=== PATIENT | female | born 1975 | race Hispanic/Latino ===

== ENCOUNTER 2018-10-02 03:39 | Emergency (ER) | payer OTHER ==
--- OUTSIDE RECORDS SUMMARY | 2018-10-02 03:45 | XMS REPORT | Continuity of Care Document ---
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/29/2015 [facility] Blood clot Resolved Problem 07/29/2015 [facility] Brain tumor Resolved Problem 07/29/2015 [facility] Breast cyst Resolved Problem 07/29/2015 [facility] Epilepsy Resolved Problem 07/29/2015 [facility] Hearing Resolved Problem 07/29/2015 [facility] Hypothyroid Resolved Problem 07/29/2015 [facility] Ovarian cyst Resolved Problem 07/29/2015 [facility] Seizure Resolved Problem 07/29/2015 [facility] LOCAL-REL Active [facility] SYMPTC EPI W Medical CMPLX PART Center SEIZ, NEOPLASM OF Active [facility] UNSPECIFIED Medical BEHAVIOR OF Center BRAI EPILEPSY, UNSP, Active [facility] NOT Medical INTRACTABLE, Center WITH ST BENIGN NEOPLASM Active [facility] CEREBRAL Medical MENINGES Center Medications Medication Details Route Status Patient Ordering Order Source Instructions Provider Date dexamethasone 4 See Active 05/28[facility] mg oral tablet Instructions, 8 2015 Medical mg PEG Q12 (end Center date 06/01) 8 mg QAM and 4 mg QHS for 1 week 4 mg PEG Q12 for 1 week 4 mg PEG daily for 1 week then resume hydrocortisone 15 mg PEG QAM and 5 mg PEG QPM (home regimen), 0 Refill(s) sertraline 100 100 mg=1 tab, Active 05/28[facility] mg oral tablet PEG, Daily, 0 2015 Medical Refill(s) Center levothyroxine 125 microgram=1 Active [facility] 125 mcg (0.125 tab, PEG, Daily, 2016 Medical mg) oral tablet 0 Refill(s) Center Levetiracetam 1,000 mg=10 mL, Active [facility] 100 MG/ML Oral PEG, Q12H, 0 2015 Medical Solution Refill(s) Center [Keppra] lamotrigine 200 400 mg=2 tab, Active [facility] MG Oral Tablet PEG, BID, 0 2015 Medical Refill(s) Center Clonazepam 0.5 0.5 mg=1 tab, Active [facility] MG Oral Tablet PEG, BID, 0 2015 Medical Refill(s) Center pantoprazole 40 40 mg=1 pkt, Active [facility] mg oral granule PEG, Daily, 0 2015 Medical Refill(s) Center gabapentin 50 300 mg=6 mL, Active 05/28[facility] MG/ML Oral PEG, Q8H, 0 2015 Medical Solution Refill(s) Center Imodium A-D 2 mg, 10 mL, Inactive [place] Route: PEG, Drug 2015 Medical form: LIQ, ONCE, Center Dosing Weight 76.818, kg, Start date: 05/28/15 13:17:00, Stop date: 05/28/15 13:17:00Notes: (Same as: Imodium) Menthol 0.0044 1 appl, Route: Inactive [place] MG/MG / Zinc TOP, PRN, Drug 2015 Medical Oxide 0.2 MG/MG form: OINT, PRN [place] Topical Ointment Diaper Rash, [Calmoseptine Start date: Ointment] 05/28/15 10:29:00, Duration: 30 day, Stop date: 06/27/15 10:28:00Notes: (Same as: Calmoseptine) potassium 40 mEq, 30 mL, Inactive [place] chloride Route: PEG, Drug 2015 Medical form: LIQ, ONCE, Center Dosing Weight 76.818, kg, Start date: 05/28/15 7:31:00, Stop date: 05/28/15 7:31:00Notes: (Same as: Potassium Chloride) Protonix 40 mg, 1 pkt, No Longer [place] Route: PEG, Drug Active 2015 Medical form: GRAN/REC, Center Daily, Dosing Weight 76.818, kg, Start date: 05/27/15 9:00:00, Duration: 30 day, Stop date: 06/25/15 9:00:00 Thyroxine 125 microgram, 1 No Longer [place] tab, Route: PEG, Active 2015 Medical Drug form: TAB, Center [id number], Dosing Weight 76.818, kg, Start date: 05/27/15 6:30:00, Duration: 30 day, Stop date: 06/25/15 6:30:00 Dexamethasone 8 mg, 2 tab, No Longer [place] Route: PEG, Drug Active 2015 Medical form: TAB, Q12H, Center Dosing Weight 76.818, kg, Start date: 05/26/15 21:00:00, Duration: 30 day, Stop date: 06/25/15 9:00:00 Levetiracetam 1,000 mg, 10 mL, No Longer [place] 100 MG/ML Oral Route: PEG, Drug Active 2015 Medical Solution form: SOLN, [place] [Keppra] Q12H, Dosing Weight 76.818, kg, Start date: 05/26/15 21:00:00, Duration: 30 day, Stop date: 06/25/15 9:00:00Notes: Same as: Keppra gabapentin 300 300 mg, 6 mL, No Longer [place] MG Oral Capsule Route: PO, Drug Active 2015 Medical form: SOLN, Q8H, Center Dosing Weight 76.818, kg, (CrCl > 60 ml/min), Start date: 05/26/15 16:00:00, Duration: 30 day, Stop date: 06/25/15 8:00:00Notes: (Same as: Neurontin) Acetaminophen 500 mg, 1 tab, No Longer [place] Route: PEG, Drug Active 2015 Medical form: TAB, Q4H, Center Dosing Weight 76.818, kg, PRN Pain 1-3/Temp > 100.4 F, Start date: 05/26/15 15:38:00, Duration: 30 day, Stop date: 06/25/15 15:37:00 Zofran 4 mg, 2 mL, No Longer [place] Route: IV, Drug Active 2015 Medical form: INJ, Q8H, Center Dosing Weight 76.818, kg, PRN Nausea, Start date: 05/26/15 15:37:00, Duration: 30 day, Stop date: 06/25/15 15:36:00Notes: (Same as: Zofran) MEDICATION WASTE Product Size: 4 mg Product Wasted: 0 mg Glucose 50 MG/ML 1,000 mL, Rate: Inactive [place] / Sodium 75 ml/hr, Infuse 2016 Medical Chloride 0.154 over: 13.3 hr, Center MEQ/ML Route: IV, Injectable Dosing Weight Solution 76.818 kg, Total Volume: 1,000, Start date: 05/26/15 5:57:00, Duration: 30 day, Stop date: 06/25/15 5:56:00 Gastrografin 100 mL, Route: Inactive [place] PEG, Drug Form: 2016 Medical SOLN, Dosing Center Weight 76.818, kg, ONCE, Start date: 05/25/15 14:51:00, Stop date: 05/25/15 14:51:00Notes: WASTE: F/P - Black; E - [employer]ash [employer] Flagyl 500 mg, 100 mL, No Longer [place] Route: IVPB, Active 2015 Medical Drug form: INJ, Center ABXQ8H, Dosing Weight 76.818, kg, Start date: 05/24/15 11:00:00, Duration: 30 day, Stop date: 06/23/15 3:00:00Notes: (Same as: Flagyl) Avoid alcohol. 200 ML 400 mg, 200 mL, No Longer [place] Ciprofloxacin 2 Route: IVPB, Active 2015 Medical MG/ML Injection Drug form: INJ, Center [id number], Dosing Weight 76.818, kg, Start date: 05/24/15 11:00:00, Duration: 30 day, Stop date: 06/22/15 23:00:00Notes: Do not refrigerate Thyroxine Route: IV, Drug No Longer [place] form: INJ, Active 2015 Medical Daily, Dosing Center Weight 76.818, kg, Start date: 05/24/15 9:00:00, Stop date: 06/22/15 9:00:00Notes: (Same as: Synthroid) Keppra 1,000 mg, Route: No Longer [place] IVPB, Q12H, Active 2016 Medical Dosing Weight Center 76.818, kg, Start date: 05/23/15 21:00:00, Duration: 30 day, Stop date: 06/22/15 9:00:00Notes: Same as Keppra Mix with 100 mL NS, LR or D5W MEDICATION WASTE Product Size: 500 mg Product Wasted: ___ mg Dexamethasone 8 mg, 2 mL, No Longer [place] Route: IV, Drug Active 2015 Medical form: INJ, Q12H, Center Dosing Weight 76.818, kg, Start date: 05/23/15 21:00:00, Duration: 30 day, Stop date: 06/22/15 9:00:00Notes: Concentration: 4mg/ml Protonix 40 mg, Route: No Longer [place] IV, Drug form: Active 2015 Medical INJ, Q12H, Center Dosing Weight 76.818, kg, Start date: 05/23/15 21:00:00, Duration: 30 day, Stop date: 06/22/15 9:00:00, nowNotes: (Same as: Protonix) Dexamethasone 8 mg, 2 tab, Inactive [place] Route: PEG, Drug 2015 Medical form: TAB, BID, Center Dosing Weight 76.818, kg, Start date: 05/23/15 17:00:00, Duration: 30 day, Stop date: 06/22/15 9:00:00Notes: Give with food. (Same As: Decadron) Morphine 1 mg, 0.5 mL, No Longer [facility] Route: IVP, Drug Active 2015 Medical form: INJ, Q6H, Center Dosing Weight 76.818, kg, PRN Pain Score 7-10, Start date: 05/23/15 16:26:00, Duration: 30 day, Stop date: 06/22/15 16:25:00Notes: (Same as:MORPhine Sulfate) Clindamycin 600 mg, 4 mL, No Longer [place] Route: IVPB, Active 2015 Medical ABXQ8H, Dosing Center Weight 76.818, kg, Priority: NOW, Start date: 05/23/15 16:26:00, Duration: 30 day, Stop date: 06/22/15 8:26:00Notes: (clindamycin 150 mg/1 ml (600 mg/4 ml VL) INJ) (Same As: Cleocin) D5NS 1,000 mL 1,000 mL, Rate: No Longer [place] 75 ml/hr, Infuse Active 2015 Medical over: 13.3 hr, Center Route: IV, Dosing Weight 76.818 kg, Total Volume: 1,000, Start date: 05/23/15 13:42:00, Duration: 30 day, Stop date: 06/22/15 13:41:00 Iohexol 100 mL, Route: No Longer [place] IVP, Drug Form: Active 2015 Medical SOLN, Dosing Center Weight 76.818, kg, ONCALL, STAT, Start date: 05/23/15 11:16:00, Duration: 1 doses or times, Stop date: 05/23/15 23:59:00, Dose=2.2ml/kg, Max [id number] -- "To be infused by Radiology Staff ONLY"Notes: (Same as:Omnipaque 350). Dexamethasone 6 mg, 1 tab, No Longer [place] Route: PEG, Drug Active 2015 Medical form: TAB, Q8H, Center Dosing Weight 76.818, kg, Start date: 05/21/15 20:00:00, Duration: 30 day, Stop date: 06/20/15 12:00:00Notes: Give with food. clindamycin 300 mg, 20 mL, No Longer [place] Route: PEG, Drug Active 2015 Medical form: PDR/REC, Center ABXQ6H, Dosing Weight 76.818, kg, Start date: 05/20/15 18:00:00, Duration: 30 day, Stop date: 06/19/15 12:00:00Notes: (Same As: Cleocin) Clindamycin 300 mg, 20 mL, Inactive [place] Route: PEG, Drug 2015 Medical form: PDR/REC, Center ABXQ6H, Dosing Weight 76.818, kg, Start date: 05/20/15 14:00:00, Duration: 30 day, Stop date: 06/19/15 8:00:00Notes: (Same As: Cleocin) docusate 100 mg, 10 mL, No Longer [place] Route: PO, Drug Active 2015 Medical form: LIQ, BID, Center Start date: 05/19/15 9:33:00, Duration: 30 day, Stop date: 06/18/15 9:30:00Notes: (Same as: Colace) docusate 100 mg, 10 mL, Inactive [place] Route: PO, Drug 2015 Medical form: LIQ, BID, Center Start date: 05/19/15 9:30:00, Duration: 30 day, Stop date: 06/17/15 17:00:00Notes: (Same as: Colace) Dexamethasone 6 mg, 1 tab, No Longer [place] Route: PEG, Drug Active 2015 Medical form: TAB, Q6H, Center Dosing Weight 76.818, kg, Start date: 05/18/15 18:00:00, Duration: 30 day, Stop date: 06/17/15 12:00:00Notes: Give with food. Docusate Sodium 100 mg, 1 cap, No Longer [place] 100 MG Oral Route: PO, Drug Active 2015 Medical Capsule [Colace] form: CAP, BID, Center Dosing Weight 76.818, kg, Priority: NOW, Start date: 05/18/15 10:46:00, Duration: 30 day, Stop date: 06/17/15 9:00:00Notes: (Same as: Colace) (Do Not Crush) Dulcolax 10 mg, 1 supp, No Longer [place] Laxative Route: OH, Drug Active 2015 Medical form: SUPP, Center Daily, Dosing Weight 76.818, kg, PRN Constipation, Start date: 05/18/15 10:46:00, Duration: 30 day, Stop date: 06/17/15 10:45:00Notes: (Same As: Dulcolax, [place]-Lax) senna 8.6 mg 8.6 mg, 1 tab, No Longer [place] oral tablet Route: PEG, Drug Active 2015 Medical Form: TAB, Center Dosing Weight 76.818, kg, Bedtime, NOW, Start date: 05/18/15 10:46:00, Duration: 30 day, Stop date: 06/16/15 21:00:00Notes: (Same as: Senokot) Acetaminophen 1 tab, Route: No Longer [place] 325 MG / PEG, Drug Form: Active 2015 Medical Hydrocodone TAB, Dosing Center Bitartrate 5 MG Weight 76.818, Oral Tablet kg, Q6H, PRN [[place] 5/325] Other -See Comment, Start date: 05/18/15 10:45:00, Duration: 30 day, Stop date: 06/17/15 10:44:00, Pain Score 3-10Notes: (Same as: [place] 325/5) Do not exceed 4gm/day of acetaminophen. Multihance 529 8,125.44 mg, No Longer [place] mg/mL 15.36 mL, Route: Active 2015 Medical IVP, Drug form: Center INJ, ONCALL, Dosing Weight 76.818, kg, GFR > 39 ml/min, Priority: STAT, Start date: 05/16/15 22:17:00, Duration: 1 doses or timesNotes: Same as Multihance Keppra 1,000 mg, Route: No Longer [place] IV, ONCE, Dosing Active 2015 Medical Weight 76.818, Center kg, Start date: 05/16/15 20:23:00, Stop date: 05/16/15 20:23:00Notes: Same as Keppra Mix with 100 mL NS, LR or D5W MEDICATION WASTE Product Size: 500 mg Product Wasted: ___ mg Ativan 1 mg, 0.5 mL, No Longer [place] Route: IV, Drug Active 2015 Medical form: INJ, Q6H, Center Dosing Weight 76.818, kg, PRN Seizure, Start date: 05/16/15 1:13:00, Duration: 30 day, Stop date: 06/15/15 1:12:00Notes: (Same as: Ativan) Ketorolac 30 mg, 1 mL, No Longer [place] Route: IV, Drug Active 2015 Medical form: INJ, Q6H, Center Dosing Weight 76.818, kg, PRN Pain Score 4-6, Start date: 05/15/15 21:55:00, Duration: 4 day, Stop date: 05/19/15 21:54:00Notes: (Same as:Toradol) IV bolus must be given >15 seconds. Give IM administration slowly and deeply into the muscle. Not for use > 4 days MEDICATION WASTE Product Size: 30 mg Product Wasted: ___ mg Versed 2 mg, Route: Inactive [place] IVP, ONCE, 2015 Medical Dosing Weight Center 76.818, kg, PRN Anxiety, Start date: 05/14/15 14:56:00, Stop date: 06/13/15 14:55:00 Versed 2 mg, 2 mL, No Longer [place] Route: IVP, Drug Active 2015 Medical form: INJ, ONCE, Center Dosing Weight 76.818, kg, PRN Anxiety, Start date: 05/14/15 10:57:00, PRN MRINotes: (Same as: Versed) MEDICATION WASTE Product Size: 2 mg Product Wasted: ___ mg potassium 18 mmol, 6 mL, Inactive [place] phosphate + Route: IVPB, 2015 Medical Sodium Chloride ONCE, Dosing Center 0.9% IV 250 mL Weight 76.818, kg, Start date: 05/14/15 7:58:00, Stop date: 05/14/15 7:58:00Notes: (Same as: K Phosphate.) 1 mMol phoshate has 1.47 mEq potassium Infuse over 4 hours NS 1,000 mL 1,000 mL, Rate: No Longer [place] 75 ml/hr, Infuse Active 2015 Medical over: 13.3 hr, Center Route: IV, Dosing Weight 76.818 kg, Total Volume: 1,000, please start when NPO, Start date: 05/14/15 0:00:00, Duration: 30 day, Stop date: 06/12/15 23:59:00 Dexamethasone 6 mg, 0.6 mL, No Longer [facility] Route: IVP, Drug Active 2015 Medical form: INJ, Q6H, Center Dosing Weight 76.818, kg, Start date: 05/13/15 18:00:00, Duration: 30 day, Stop date: 06/12/15 12:00:00Notes: MEDICATION WASTE Product Size: 10 mg Product Wasted: ___ mg Pepcid 20 mg, 1 tab, No Longer [place] Route: PO, Drug Active 2015 Medical form: TAB, Q12H, Center Dosing Weight 76.818, kg, Priority: NOW, Start date: 05/13/15 7:31:00, Stop date: 06/11/15 21:00:00Notes: (Same as: Pepcid) Dexamethasone 8 mg, 0.8 mL, No Longer [place] Route: IVP, Drug Active 2015 Medical form: INJ, Q6H, Center Dosing Weight 76.818, kg, Start date: 05/12/15 18:00:00, Duration: 1 day, Stop date: 05/13/15 12:00:00Notes: MEDICATION WASTE Product Size: 10 mg Product Wasted: ___ mg Docusate 100 mg, 10 mL, No Longer [place] Route: GT, Drug Active 2015 Medical form: LIQ, BID, Center Dosing Weight 76.818, kg, Start date: 05/12/15 17:00:00, Duration: 30 day, Stop date: 06/11/15 9:00:00Notes: (Same as: Colace) Hydrocortisone 5 mg, 1 tab, No Longer [place] Route: PO, Drug Active 2015 Medical form: TAB, Q24H, Center Dosing Weight 76.818, kg, Start date: 05/12/15 15:00:00, Duration: 30 day, Stop date: 06/10/15 15:00:00Notes: (Same as: Cortef) Magnesium 2 gm, 50 mL, Inactive [place] Sulfate Route: IVPB, 2015 Medical Drug form: INJ, Center ONCE, Dosing Weight 76.818, kg, Total dose=2 gm, Start date: 05/12/15 13:20:00, Duration: 1 doses or times, Stop date: 05/12/15 13:20:00 Dexamethasone 10 mg, 1 mL, Inactive [place] Route: IVP, Drug 2015 Medical form: INJ, ONCE, Center Dosing Weight 76.818, kg, Priority: STAT, Start date: 05/12/15 13:11:00, Stop date: 05/12/15 13:11:00Notes: MEDICATION WASTE Product Size: 10 mg Product Wasted: ___ mg Hydrocortisone 15 mg, 3 tab, No Longer [place] Route: PO, Drug Active 2015 Medical form: TAB, Center Daily, Dosing Weight 76.818, kg, Start date: 05/12/15 9:00:00, Duration: 30 day, Stop date: 06/10/15 9:00:00Notes: (Same as: Cortef) Multihance 529 8,125.44 mg, No Longer [place] mg/mL 15.36 mL, Route: Active 2015 Medical IVP, Drug form: Center INJ, ONCALL, Dosing Weight 76.818, kg, GFR > 39 ml/min, Priority: STAT, Start date: 05/11/15 19:58:00, Duration: 1 doses or times, Stop date: 05/12/15 0:00:00Notes: Same as Multihance Hydrocortisone 5 mg, 1 tab, Inactive [place] Route: PO, Drug 2015 Medical form: TAB, ONCE, Center Dosing Weight 76.818, kg, Priority: STAT, Start date: 05/11/15 19:33:00, Stop date: 05/11/15 19:33:00Notes: (Same as: Cortef) Ativan 1 mg, 0.5 mL, Inactive [facility] Route: IVP, Drug 2015 Medical form: INJ, ONCE, Center Dosing Weight 76.818, kg, PRN Anxiety, Start date: 05/11/15 17:33:00Notes: (Same as: Ativan) normal saline 1,000 mL, Rate: No Longer [place] 0.9% IV 1,000 mL 75 ml/hr, Infuse Active 2015 Medical over: 13.3 hr, Center Route: IV, Dosing Weight 76.818 kg, Total Volume: 1,000, Start date: 05/11/15 16:24:00, Duration: 30 day, Stop date: 06/10/15 16:23:00 Ativan 2 mg, 1 mL, Inactive Route: IM, Drug 2015 Medical form: INJ, ONCE, Center Dosing Weight 76.818, kg, Priority: NOW, Start date: 05/11/15 11:36:00, Stop date: 05/11/15 11:36:00Notes: (Same as: Ativan) Versed 2 mg, Route: IM, Inactive [place] ONCE, Dosing 2015 Medical Weight 76.818, Center kg, Start date: 05/11/15 11:27:00, Stop date: 05/11/15 11:27:00 Versed 1 mg, 0.5 mL, No Longer [place] Route: IV, Drug Active 2015 Medical form: SYRP, PRN, Center Dosing Weight 76.818, kg, PRN Anxiety, Start date: 05/11/15 8:01:00, Duration: 2 doses or times, Stop date: 05/12/15 0:00:00Notes: (Same as: Versed) lamotrigine 200 400 mg=2 tab, No Longer [place] MG Oral Tablet PO, BID Active 2015 [facility] lamotrigine 200 400 mg, 2 tab, No Longer [place] MG Oral Tablet Route: PO, Drug Active 2015 Medical form: TAB, BID, Center Dosing Weight 81.818, kg, Start date: 05/10/15 9:00:00, Duration: 30 day, Stop date: 06/08/15 17:00:00Notes: (Same as:LaMICtal) Thyroxine 125 microgram, 1 No Longer [place] tab, Route: PO, Active 2015 Medical Drug form: TAB, Center Daily, Dosing Weight 81.818, kg, Start date: 05/10/15 9:00:00, Duration: 30 day, Stop date: 06/08/15 9:00:00Notes: Take 1 hour before or 2 hours after meal; Enteral feeds may interefere with the absorption of this medication. (Same as:Levothroid) Sertraline 100 mg, 1 tab, No Longer [place] Route: PO, Drug Active 2015 Medical form: TAB, Center Daily, Dosing Weight 81.818, kg, Start date: 05/10/15 9:00:00, Duration: 30 day, Stop date: 06/08/15 9:00:00Notes: (Same as: Zoloft) Levetiracetam 1,000 mg, 2 tab, No Longer [facility] 1000 MG Oral Route: PO, Drug Active 2015 Medical Tablet form: TAB, BID, Center Dosing Weight 81.818, kg, Start date: 05/10/15 9:00:00, Duration: 30 day, Stop date: 06/08/15 17:00:00Notes: (Same as:Keppra) Clonazepam 0.5 mg, 1 tab, No Longer [facility] Route: PO, Drug Active 2015 Medical form: TAB, BID, Center Dosing Weight 81.818, kg, Start date: 05/10/15 9:00:00, Duration: 30 day, Stop date: 06/08/15 17:00:00Notes: (Same As: KlonoPIN) pneumococcal 0.5 mL, Route: Inactive [place] capsular IM, Drug Form: 2015 Medical polysaccharide INJ, Daily, Center type 1 vaccine / Start date: pneumococcal 05/10/15 capsular 9:00:00, polysaccharide Duration: 1 type 10A vaccine doses or times, / pneumococcal Stop date: capsular 05/10/15 polysaccharide 9:00:00Notes: type 11A vaccine (Same as: / pneumococcal Pneumovax 23) capsular Refrigerate polysaccharide type 12F vaccine / pneumococcal capsular polysacchar heparin sodium, 5,000 unit, 1 No Longer [place] porcine 2500 mL, Route: Active 2015 Medical UNT/ML SUB-Q, Drug Center Injectable form: INJ, Q8H, Solution Dosing Weight 81.818, kg, Start date: 05/10/15 8:00:00, Duration: 30 day, Stop date: 06/09/15 0:00:00Notes: porcine heparin Versed 1 mg, 1 mL, No Longer [facility] Route: IV, Drug Active 2015 Medical form: INJ, PRN, Center Dosing Weight 81.818, kg, PRN Other -See Comment, Start date: 05/10/15 2:00:00, Duration: 30 day, Stop date: 06/09/15 1:59:00Notes: (Same as: Versed) MEDICATION WASTE Product Size: 2 mg Product Wasted: _1__ mg Saline Flush 10 ml, Route: No Longer [place] 0.9% IVP, Drug Form: Active 2015 Medical INJ, Dosing Center Weight 81.818, kg, Q12H, Start date: 05/09/15 21:00:00, Duration: 30 day, Stop date: 06/08/15 9:00:00Notes: (Same as: BD Posiflush) Acetaminophen 1,000 mg=2 tab, No Longer [place] 500 MG Oral PO, Q4H, PRN Active 2015 Medical Tablet [Tylenol] Pain, # 120 tab, Center 0 Refill(s) Saline Flush 10 ml, Route: No Longer [place] 0.9% IVP, Drug Form: Active 2015 Medical INJ, Dosing Center Weight 81.818, kg, PRN, PRN Line Flush, Start date: 05/09/15 17:58:00, Duration: 30 day, Stop date: 06/08/15 17:57:00Notes: (Same as: BD Posiflush) lamotrigine 200 See No Longer [place] MG Oral Tablet Instructions, 1 2015 Medical tab PO Daily, 1 Center Refill(s) levothyroxine 125 microgram=1 No Longer [place] 125 mcg (0.125 tab, PO, Daily, 2015 Medical mg) oral tablet # 30 tab, 0 Center Refill(s) clonazePAM 0.5 0.5 mg=1 tab, No Longer [place] mg oral tablet PO, BID, # 30 Active 2015 Medical tab, 0 Refill(s) Center sertraline 100 100 mg=1 tab, No Longer [place] mg oral tablet PO, Daily, # 30 Active 2015 Medical tab, 0 Refill(s) Center Levetiracetam 1,000 mg=1 tab, No Longer [place] 1000 MG Oral PO, BID, # 30 Active 2015 Medical Tablet tab, 0 Refill(s) Center Allergies, Adverse Reactions, Alerts Substance Category Reaction Severity Reaction Status Date Comments Source type Reported iodine Assertion Drug Active [facility] topical [facility] penicillins Assertion Drug [place] [facility] [place]ion Drug [place] [facility] Immunizations Immunization Date Given Site Status Last Comments Source Updated pneumococcal 05/11/2015 Right completed Iyamu [facility]-valent [facility] Results Order Name Results Value Reference Date Interpretation Comments Source Range CHEM PANEL eGFR 96 07/04 Result Comment: The eGFR is calculated using the CKD-EPI formula. In most young, healthy individuals the eGFR will be >90 mL/ min/1.73m2. The eGFR declines with age. An eGFR of 60-89 may be normal in [facility] mL/min/1. some populations, particularly the elderly, for whom the CKD-EPI formula has not been extensively validated. Use of the eGFR is not recommended in the following populations: [address] Individuals with unstable creatinine concentrations, including patients and those with serious co-morbid conditions. Patients with extremes in muscle mass or diet. The data above are obtained from the National Kidney Disease Education Program (NKDEP) which additionally recommends that when the eGFR is used in patients with extremes of body mass index for purposes of drug dosing, the eGFR should be multiplied by the estimated BMI. CHEM PANEL Calcium Lvl 8.1 mg/dL 8.5 - 10.5 07/04 [facility] CHEM PANEL CO2 26 meq/L 24 - 32 07/[address] CHEM PANEL Creatinine 0.77 mg/dL 0.50 - 07/04 [facility] Lvl 1.40 [facility] CHEM PANEL BUN 3 mg/dL 7 - 22 07/04 [facility]2015 [facility] CHEM PANEL Potassium Lvl 3.1 meq/L 3.5 - 5.1 07/04 2015 [facility] CHEM PANEL Sodium Lvl 143 meq/L 135 - 145 07/04 [facility]2015 [facility] CHEM PANEL Glucose Lvl 116 mg/dL 70 - 99 07/04 [facility]2015 [facility] CHEM PANEL Chloride Lvl 108 meq/L 95 - 109 07/04 [facility]2015 [facility] CHEM PANEL AGAP 12.1 meq/L 10.0 - 07/04 [facility] 20.0 [facility] HEMATOLOGY Plt Morph Normal 07/04 [facility] (07/05/15 3:46 PM) [place] HEMATOLOGY Tot Cell Ct 100 07/04 [facility] HEMATOLOGY Atypical 0.0 % <=0.0 % 07/04 [facility] Lymphs [facility] HEMATOLOGY RBC Morph Normal 07/04 [facility] (07/05/15 3:46 PM) [place] HEMATOLOGY Lymphocytes 40.0 % 20.0 - 07/04 40.0 [facility] [facility] HEMATOLOGY Monocytes 4.0 % 2.0 - 12.0 07/04 [facility] HEMATOLOGY Segs-Bands # 3.5 K/CMM 1.5 - 8.1 07/04 [facility] HEMATOLOGY Lymphocytes # 2.5 K/CMM 1.0 - 5.5 07/04 2015 [facility] HEMATOLOGY Monocytes # 0.2 K/CMM 0.0 - 0.8 07/04 [facility] HEMATOLOGY Segs 56.0 % 45.0 - 07/04 75.0 [facility] HEMATOLOGY Bands 0.0 % 0.0 - 11.0 07/04 [facility] HEMATOLOGY RDW 15.8 % 11.5 - 07/04 [place] 14.5 [facility] HEMATOLOGY MPV 6.9 fL 7.4 - 10.4 07/[address] [place] [address] HEMATOLOGY Platelet 357 K/CMM 133 - 450 07/04 [facility] HEMATOLOGY MCV 83.1 fL 80.0 - 07/04 98.0 [facility] HEMATOLOGY RBC 3.91 M/CMM 4.20 - 07/04 5.40 /2015 [facility] HEMATOLOGY WBC 6.2 K/CMM 3.7 - 10.4 07/04 [facility] HEMATOLOGY Hct 32.5 % 36.0 - 07/04 [place] 48.0 [facility] HEMATOLOGY Hgb 10.8 g/dL 12.0 - 07/04 16.0 [facility] HEMATOLOGY MCHC 33.2 g/dL 32.0 - 07/04 36.0 [facility] HEMATOLOGY MCH 27.6 pg 27.0 - 07/04 [facility] 31.0 [facility] URINE AND UA Leuk Est Negative Negative 07/04 [facility] (07/05/15 3:19 PM) [place] URINE AND UA Nitrite Negative Negative 07/04 [facility] (07/05/15 3:19 PM) [place] URINE AND UA 0.2 EU/dL 0.1 - 1.0 07/04 [facility] Urobilinogen /2015 [facility] URINE AND UA Blood Negative Negative 07/04 [facility] (07/05/15 3:19 PM) [place] URINE AND UA Bili Negative Negative 07/04 [facility] *NA* [place] (07/05/15 3:19 PM) URINE AND UA Ketones Negative Negative 07/04 [facility] mg/dL mg/dL /2015 [facility] URINE AND UA Glucose Negative Negative 07/04 [facility] mg/dL mg/dL /2015 [facility] URINE AND UA Protein Negative Negative 07/04 [facility] mg/dL mg/dL [facility] URINE AND UA pH 7.0 5.0 - 8.0 07/04 [facility] URINE AND UA Spec Grav 1.015 <=1.030 07/04 [facility] URINE AND UA Turbidity Clear Clear 07/04 [facility] (07/05/15 3:19 PM) [place] URINE AND UA Color Yellow Yellow 07/04 [facility] *NA* [place] (07/05/15 3:19 PM) URINE AND UA Sq Epi None Seen Few 07/04 [facility] (07/05/15 3:19 PM) [place] Brain-Outsi Brain-Outside EXAM: CT BRAIN WITHOUT CONTRAST 07/04 - [facility] Consult Consult CT - [facility] CT Center DATE: 07/05/2015 Read by: Alia Granado Dictated Date/time: 07/06/15 11:42 Electronically Signed by: Alia Granado 07/06/15 11:47 FINAL REPORT INDICATION: 2nd opinion consultation COMPARISON: MRI dated 06/01/2009 TECHNIQUE: Routine axial CT images of the brain were obtained FINDINGS: Numerous extra-axial masses in the anterior cranial fossa, left petroclival region, left middle cranial fossa, and bilateral parafalcine regions are again noted, consistent with the known history of men ingiomatosis. Areas of encephalomalacia in the right orbitofrontal gyri and in the left superior and middle frontal gyri are again demonstrated. There are bilateral craniotomies, unchanged as compared t o the previous exam. A ventriculostomy catheter in the right atrium is again noted. The ventricular size is normal and stable. IMPRESSION: Stable postoperative changes, areas of encephalomalacia, and residual meningiomas in both cerebral hemispheres. I agree with the outside report. CHEM PANEL eGFR 93 05/27 Result Comment: The eGFR is calculated using the CKD-EPI formula. In most young, healthy individuals the eGFR will be >90 mL/ min/1.73m2. The eGFR declines with age. An eGFR of 60-89 may be normal in [facility] mL/min/1. some populations, particularly the elderly, for whom the CKD-EPI formula has not been extensively validated. Use of the eGFR is not recommended in the following populations: [address] Individuals with unstable creatinine concentrations, including patients and those with serious co-morbid conditions. Patients with extremes in muscle mass or diet. The data above are obtained from the National Kidney Disease Education Program (NKDEP) which additionally recommends that when the eGFR is used in patients with extremes of body mass index for purposes of drug dosing, the eGFR should be multiplied by the estimated BMI. CHEM PANEL Potassium Lvl 3.3 meq/L 3.5 - 5.1 05/[address] [place] [address] CHEM PANEL Sodium Lvl 142 meq/L 135 - 145 05/27 [facility]2015 [facility] CHEM PANEL Creatinine 0.80 mg/dL 0.50 - 05/27 [facility] Lvl 1.40 [facility] CHEM PANEL Calcium Lvl 8.6 mg/dL 8.5 - 10.5 05/[address] CHEM PANEL CO2 27 meq/L 24 - 32 05/[address] CHEM PANEL AGAP 13.3 meq/L 10.0 - 05/27 [facility] 20.0 [facility] CHEM PANEL Chloride Lvl 105 meq/L 95 - 109 05/27 [facility]2015 [facility] CHEM PANEL Glucose Lvl 93 mg/dL 70 - 99 05/[address] CHEM PANEL BUN 14 mg/dL 7 - 22 05/[address] CHEM PANEL Bili Total 0.3 mg/dL 0.2 - 1.3 05/[address] CHEM PANEL Globulin 3.3 g/dL 2.0 - 4.0 05/[address] CHEM PANEL Bili Direct 0.1 mg/dL 0.0 - 0.3 05/[address] CHEM PANEL Alk Phos 190 unit/L 39 - 136 05/[address] CHEM PANEL AST 31 unit/L 0 - 37 05/[address] CHEM PANEL Albumin Lvl 3.4 g/dL 3.5 - 5.0 05/[address] CHEM PANEL ALT 112 unit/L 0 - 65 05/[address] CHEM PANEL Bili Indirect 0.2 mg/dL 0.0 - 1.0 05/[address] CHEM PANEL A/G Ratio 1.0 0.7 - 1.6 05/[address] CHEM PANEL Total Protein 6.7 g/dL 6.4 - 8.4 05/[address] Foot series Foot series EXAM: FOOT 3 VIEWS 05/25 [facility] DATE: Order Observation End Time: May 25, 2015 08:00:35 PM Read by: Loc Padilla MD Dictated Date/time: 05/26/15 07:41 Electronically Signed by: Loc Padilla MD 05/26/15 07:42 FINAL REPORT INDICATION: Pain. Pain and swelling TECHNIQUE: AP , lateral and oblique radiographs of the left foot . COMPARISON: None available FINDINGS: No acute bony abnormality is identified. Old avulsion fracture from the base of the fifth metatarsal seen. IMPRESSION: No acute bony abnormality identified. Abdomen AP Abdomen AP DX EXAM: XR ABDOMEN 2 views 05/25 - [facility] DATE: 05/23/2015 at 16: 57. Read by: Staci Sethi MD Dictated Date/time: 05/26/15 10:47 Electronically Signed by: Staci Sethi MD 05/26/15 10:54 FINAL REPORT INDICATION: G-tube confirmation. ADDITIONAL INFORMATION: None. COMPARISON: 05/13/2015. TECHNIQUE: Supine films of the upper abdomen before and after injection of contrast via G-tube FINDINGS: Potash Flaker film shows a shunt tube is in the right side of the abdomen. A G- tube tip is in the midline. This gaseous distention of the colon without constipation all of these distal impaction but the rectum is not shown. Second film shows contrast into bleacher injected via the G-tube outlining the stomach and proximal duodenum. The balloon of the G-tube is note overlying the stomach and is presumed within a stretched p ortion of the stomach connecting it to the skin or within the track connecting the stomach to the skin. There is no contrast leak seen on this film. If exact relationship between the G-tube and the lume n of the stomach is to be shown, and lateral film during contrast injection is needed. IMPRESSION: 1. No leak of contrast pass IV GI tract seen during injection the NG tube into supine position although the tube is not obviously in the stomach. 2. If the G-tube position in relation to gastric lumen is to be shown, and lateral film during contrast injection is needed CHEM PANEL A/G Ratio 0.9 0.7 - 1.6 05/25 [facility] CHEM PANEL Globulin 3.8 g/dL 2.0 - 4.0 05/[address] CHEM PANEL AGAP 11.1 meq/L 10.0 - 05/25 [facility] 20.0 [facility] CHEM PANEL B/C Ratio 23 6 - 25 05/[address] CHEM PANEL eGFR 105 05/25 Result Comment: The eGFR is calculated using the CKD-EPI formula. In most young, healthy individuals the eGFR will be >90 mL/ min/1.73m2. The eGFR declines with age. An eGFR of 60-89 may be normal in [facility] mL/min/1.7 /2015 some populations, particularly the elderly, for whom the CKD-EPI formula has not been extensively validated. Use of the eGFR is not recommended in the following populations: [address] Individuals with unstable creatinine concentrations, including patients and those with serious co-morbid conditions. Patients with extremes in muscle mass or diet. The data above are obtained from the National Kidney Disease Education Program (NKDEP) which additionally recommends that when the eGFR is used in patients with extremes of body mass index for purposes of drug dosing, the eGFR should be multiplied by the estimated BMI. CHEM PANEL Chloride Lvl 108 meq/L 95 - 109 05/25 [facility] CHEM PANEL Creatinine 0.71 mg/dL 0.50 - 05/25 [facility] Lvl 1.40 [facility] CHEM PANEL Potassium Lvl 4.1 meq/L 3.5 - 5.1 05/25 [facility] CHEM PANEL CO2 24 meq/L 24 - 32 05/25 2015 [facility] CHEM PANEL Sodium Lvl 139 meq/L 135 - 145 05/25 2015 [facility] CHEM PANEL Albumin Lvl 3.3 g/dL 3.5 - 5.0 05/[address] CHEM PANEL ALT 187 unit/L 0 - 65 05/25 2015 [facility] CHEM PANEL AST 50 unit/L 0 - 37 05/[address] CHEM PANEL Calcium Lvl 8.2 mg/dL 8.5 - 10.5 05/25 [facility]2015 [facility] CHEM PANEL Total Protein 7.1 g/dL 6.4 - 8.4 05/25 [facility]2015 [facility] CHEM PANEL Bili Total 0.4 mg/dL 0.2 - 1.3 05/[address] CHEM PANEL Alk Phos 238 unit/L 39 - 136 05/[address] CHEM PANEL Glucose Lvl 111 mg/dL 70 - 99 05/[address] CHEM PANEL BUN 16 mg/dL 7 - 22 05/[address] HEMATOLOGY Lymphocytes 14.9 % 20.0 - 05/25 [place] 40.0 [facility] HEMATOLOGY Monocytes 3.4 % 2.0 - 12.0 05/25 2015 [facility] HEMATOLOGY Eosinophils 0.1 % 0.0 - 4.0 05/25 [facility] HEMATOLOGY Basophils 0.2 % 0.0 - 1.0 05/25 2015 [facility] HEMATOLOGY Lymphocytes # 1.3 K/CMM 1.0 - 5.5 05/25 [facility] HEMATOLOGY Monocytes # 0.3 K/CMM 0.0 - 0.8 05/25 2015 [facility] HEMATOLOGY Segs-Bands # 6.9 K/CMM 1.5 - 8.1 05/25 [facility]2015 [facility] HEMATOLOGY Segs 81.4 % 45.0 - 05/25 [place] 75.0 [facility] HEMATOLOGY RBC 4.66 M/CMM 4.20 - 05/25 [place] 5.40 [facility] HEMATOLOGY Hct 39.4 % 36.0 - 05/25 [place] 48.0 [facility] HEMATOLOGY Hgb 13.1 g/dL 12.0 - 05/25 [place] 16.0 /2015 [facility] HEMATOLOGY WBC 8.5 K/CMM 3.7 - 10.4 05/25 [facility] HEMATOLOGY MCHC 33.2 g/dL 32.0 - 05/25 [facility] 36.0 /2015 [facility] HEMATOLOGY MCH 28.1 pg 27.0 - 05/25 31.0 [facility] HEMATOLOGY MCV 84.5 fL 80.0 - 05/25 [place] 98.0 /2015 [facility] HEMATOLOGY MPV 7.8 fL 7.4 - 10.4 05/25 [facility] HEMATOLOGY Platelet 328 K/CMM 133 - 450 05/25 [facility] HEMATOLOGY RDW 15.9 % 11.5 - 05/25 [facility] 14.5 [facility] Wrist Wrist EXAM: XR RIGHT ELBOW 3 VIEWS 05/24 - [facility] complete DX complete - Medical EXAM: XR RIGHT FOREARM 2 VIEWS Center EXAM: XR RIGHT WRIST 3 VIEWS Read by: Krystal Cordova MD Dictated Date/time: 05/25/15 07:42 Electronically Signed by: Krystal Cordova MD 05/25/15 07:44 FINAL REPORT DATE: 05/25/2015 at 0000 hours INDICATION: Pain and swelling. COMPARISON: Right humerus radiographs of 11/30/2008. TECHNIQUE: AP, lateral and oblique radiographs of the right elbow, AP and lateral radiographs of the right forearm, PA, lateral and oblique radiographs of the right wrist DISCUSSION: No fracture, dislocation or other acute bony abnormality is identified. There is no elbow joint effusion. Subcutaneous edema is most evident surrounding the elbow and ulnar aspect of the for earm, without subcutaneous emphysema or radiopaque foreign body. IMPRESSION: Diffuse soft tissue swelling without acute bony abnormality. Forearm 2 Forearm 2 EXAM: XR RIGHT ELBOW 3 VIEWS 05/24 - [place] views DX views DX - Medical EXAM: XR RIGHT FOREARM 2 VIEWS Center EXAM: XR RIGHT WRIST 3 VIEWS Read by: Krystal Cordova MD Dictated Date/time: 05/25/15 07:42 Electronically Signed by: Krystal Cordova MD 05/25/15 07:44 FINAL REPORT DATE: 05/25/2015 at 0000 hours INDICATION: Pain and swelling. COMPARISON: Right humerus radiographs of 11/30/2008. TECHNIQUE: AP, lateral and oblique radiographs of the right elbow, AP and lateral radiographs of the right forearm, PA, lateral and oblique radiographs of the right wrist DISCUSSION: No fracture, dislocation or other acute bony abnormality is identified. There is no elbow joint effusion. Subcutaneous edema is most evident surrounding the elbow and ulnar aspect of the for earm, without subcutaneous emphysema or radiopaque foreign body. IMPRESSION: Diffuse soft tissue swelling without acute bony abnormality. Elbow 3 Elbow 3 views EXAM: XR RIGHT ELBOW 3 VIEWS 05/24 - [facility] views DX DX /2015 - Medical EXAM: XR RIGHT FOREARM 2 VIEWS Center EXAM: XR RIGHT WRIST 3 VIEWS Read by: Krystal Cordova MD Dictated Date/time: 05/25/15 07:42 Electronically Signed by: Krystal Cordova MD 05/25/15 07:44 FINAL REPORT DATE: 05/25/2015 at 0000 hours INDICATION: Pain and swelling. COMPARISON: Right humerus radiographs of 11/30/2008. TECHNIQUE: AP, lateral and oblique radiographs of the right elbow, AP and lateral radiographs of the right forearm, PA, lateral and oblique radiographs of the right wrist DISCUSSION: No fracture, dislocation or other acute bony abnormality is identified. There is no elbow joint effusion. Subcutaneous edema is most evident surrounding the elbow and ulnar aspect of the for earm, without subcutaneous emphysema or radiopaque foreign body. IMPRESSION: Diffuse soft tissue swelling without acute bony abnormality. CHEM PANEL ALT 266 unit/L 0 - 65 05/[address] CHEM PANEL A/G Ratio 1.0 0.7 - 1.6 05/24 [facility]2015 [facility] CHEM PANEL AST 96 unit/L 0 - 37 05/[address] CHEM PANEL Calcium Lvl 9.1 mg/dL 8.5 - 10.5 05/[address] CHEM PANEL Alk Phos 289 unit/L 39 - 136 05/[address] CHEM PANEL Bili Total 0.6 mg/dL 0.2 - 1.3 05/[address] CHEM PANEL eGFR 83 05/24 Result Comment: The eGFR is calculated using the CKD-EPI formula. In most young, healthy individuals the eGFR will be >90 mL/ min/1.73m2. The eGFR declines with age. An eGFR of 60-89 may be normal in [facility] mL/min/1.7 some populations, particularly the elderly, for whom the CKD-EPI formula has not been extensively validated. Use of the eGFR is not recommended in the following populations: [address] Individuals with unstable creatinine concentrations, including patients and those with serious co-morbid conditions. Patients with extremes in muscle mass or diet. The data above are obtained from the National Kidney Disease Education Program (NKDEP) which additionally recommends that when the eGFR is used in patients with extremes of body mass index for purposes of drug dosing, the eGFR should be multiplied by the estimated BMI. CHEM PANEL Total Protein 7.4 g/dL 6.4 - 8.4 05/24 2015 [facility] CHEM PANEL B/C Ratio 25 6 - 25 05/[address] CHEM PANEL Albumin Lvl 3.7 g/dL 3.5 - 5.0 05/[address] CHEM PANEL AGAP 15.6 meq/L 10.0 - 05/24 [facility] 20.0 [facility] CHEM PANEL Globulin 3.7 g/dL 2.0 - 4.0 05/[address] CHEM PANEL Creatinine 0.87 mg/dL 0.50 - 05/24 [facility] Lvl 1.40 [facility] CHEM PANEL CO2 22 meq/L 24 - 32 05/[address] CHEM PANEL Chloride Lvl 103 meq/L 95 - 109 05/[address] CHEM PANEL Potassium Lvl 3.6 meq/L 3.5 - 5.1 05/[address] CHEM PANEL Sodium Lvl 137 meq/L 135 - 145 05/[address] CHEM PANEL BUN 22 mg/dL 7 - 22 05/[address] CHEM PANEL Glucose Lvl 140 mg/dL 70 - 99 05/[address] HEMATOLOGY Basophils # 0.1 K/CMM 0.0 - 0.2 05/24 [facility]2015 [facility] HEMATOLOGY Segs 81.5 % 45.0 - 05/24 [facility] 75.0 [facility] HEMATOLOGY Monocytes # 0.7 K/CMM 0.0 - 0.8 05/[address] HEMATOLOGY Segs-Bands # 11.3 K/CMM 1.5 - 8.1 05/[address] Center HEMATOLOGY Basophils 0.5 % 0.0 - 1.0 05/24 [facility] HEMATOLOGY Lymphocytes # 1.7 K/CMM 1.0 - 5.5 05/24 [facility] HEMATOLOGY Lymphocytes 12.4 % 20.0 - 05/24 [place] 40.0 [facility] HEMATOLOGY Eosinophils 0.4 % 0.0 - 4.0 05/24 [facility] HEMATOLOGY Monocytes 5.2 % 2.0 - 12.0 05/24 [facility] HEMATOLOGY MPV 8.1 fL 7.4 - 10.4 05/24 [facility] HEMATOLOGY WBC 13.9 K/CMM 3.7 - 10.4 05/24 [facility] HEMATOLOGY RDW 15.6 % 11.5 - 05/24 14. [facility] HEMATOLOGY Platelet 387 K/CMM 133 - 450 05/24 [facility] HEMATOLOGY RBC 5.06 M/CMM 4.20 - 05/24 [place] 5.40 [facility] HEMATOLOGY MCHC 32.2 g/dL 32.0 - 05/24 [place] 36.0 [facility] HEMATOLOGY MCH 26.5 pg 27.0 - 05/24 [place] 31.0 [facility] HEMATOLOGY Hct 41.6 % 36.0 - 05/24 [place] 48.0 [facility] HEMATOLOGY MCV 82.1 fL 80.0 - 05/24 98.0 [facility] HEMATOLOGY Hgb 13.4 g/dL 12.0 - 05/24 16.0 [facility] HEMATOLOGY RDW 15.5 % 11.5 - 05/23 [place] 14.5 [facility] HEMATOLOGY MCHC 33.2 g/dL 32.0 - 05/23 [place] 36.0 [facility] HEMATOLOGY MPV 7.7 fL 7.4 - 10.4 05/23 [facility] HEMATOLOGY Platelet 384 K/CMM 133 - 450 05/23 [facility] HEMATOLOGY WBC 11.3 K/CMM 3.7 - 10.4 05/23 [facility] HEMATOLOGY MCV 82.5 fL 80.0 - 05/23 [place] 98.0 2016 [facility] HEMATOLOGY MCH 27.4 pg 27.0 - 05/23 [place] 31.0 [facility] HEMATOLOGY RBC 5.00 M/CMM 4.20 - 05/23 [place] 5.40 [facility] HEMATOLOGY Hct 41.3 % 36.0 - 05/23 [facility] 48.0 [facility] HEMATOLOGY Hgb 13.7 g/dL 12.0 - 05/23 [place] 16.0 [facility] HEMATOLOGY Segs-Bands # 7.8 K/CMM 1.5 - 8.1 05/23 2015 [facility] HEMATOLOGY Lymphocytes # 2.5 K/CMM 1.0 - 5.5 05/23 2015 [facility] HEMATOLOGY Segs 67.0 % 45.0 - 05/23 [facility] 75.0 [facility] HEMATOLOGY Monocytes # 0.6 K/CMM 0.0 - 0.8 05/23 2015 [facility] HEMATOLOGY Monocytes 5.0 % 2.0 - 12.0 05/23 2015 [facility] HEMATOLOGY Myelocytes 3.0 % <=0.0 % 05/23 [facility] HEMATOLOGY Metamyelocyte 1.0 % 0.0 - 1.0 05/23 [facility] s [facility] HEMATOLOGY RBC Morph Normal 05/23 [facility] (05/23/15 3:17 PM) [place] HEMATOLOGY Plt Morph Normal 05/23 [facility] (05/23/15 3:17 PM) [place] HEMATOLOGY Atypical 0.0 % <=0.0 % 05/23 [facility] Lymphs [facility] HEMATOLOGY Bands 2.0 % 0.0 - 11.0 05/23 [facility] HEMATOLOGY Lymphocytes 22.0 % 20.0 - 05/23 [facility] 40.0 [facility] HEMATOLOGY Tot Cell Ct 100 05/23 2015 [facility] Abdomen/Pel Abdomen/Pelvi EXAM: CT ABDOMEN AND PELVIS WITHOUT CONTRAST - [facility] vis wo IV s wo IV - Medical contrast CT contrast CT This report was dictated by a Dispatcher Relay/Fellow. I have personally reviewed the images as Center well as the Resident's interpretation and agree with the findings. 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 History of hypopituitarism. COMPARISON: None. TECHNIQUE: Helical acquisition of the abdomen and pelvis was obtained from the lung bases to the symphysis pubis without administration of oral contrast, intravenous contrast. Initial attempt to perform contrast-enhanced CT was aborted due to infiltration of intravenous contrast into the right upper extremity earlier on the same date. Axial, sagittal and coronal images were interpreted. FINDINGS: Bibasilar subsegmental atelectasis is present. The pleura and visualized portions of the heart and pericardium are clear. The liver, bile ducts, spleen, pancreas, and adrenals show no significant abnormalities. Cholelithiasis is present, without secondary signs to suggest acute cholecystitis. A PEG tube is present within the gastric body, with the balloon lying within the lumen of the stomach. There is mild surrounding fat stranding along the catheter extending to the ventral abdominal wall. Soft tissue stranding is also present within the soft tissues about the site of the PEG tube. Visualized small bowel and colon have normal caliber. Note is made of two foci of dystrophic calcification s in the right lower quadrant (series 3/image 64), of unclear etiology. No mesenteric abnormalities. There is no free fluid or free air identified. The kidneys are symmetric in size, and demonstrate normal contour. There are no renal calculi or hydronephrosis identified. There is intravenous contrast from prior contrast examination within the renal collecting systems and the urinary bladder. Aorta and IVC have normal caliber. Abdominal and pelvic lymph nodes are not enlarged. No retroperitoneal abnormalities. There is dextroscoliosis of the lumbar spine, with extensive degenerative changes worse at the level of L4-L5 and L5-S1. A ventriculoperitoneal shunt catheter is present with its tip lying within the lower abdomen. IMPRESSION: 1. PEG tube balloon lies within the gastric body; however there is mild soft tissue stranding along the PEG tube catheter extending to the ventral abdominal wall, as well as within the intra-abdominal s oft tissues concerning for leakage of tube feeds/gastric contents. 2. Cholelithiasis is present, without secondary signs to suggest acute cholecystitis. CHEM PANEL B/C Ratio 33 6 - 25 05/[address] HEMATOLOGY Basophils 0.5 % 0.0 - 1.0 05/21 [facility]2015 [facility] HEMATOLOGY Basophils # 0.1 K/CMM 0.0 - 0.2 05/21 [facility]2015 [facility] HEMATOLOGY Eosinophils 0.3 % 0.0 - 4.0 05/[address] Spine Spine entire EXAMINATION: MRI entire spine with and without contrast. 05/16 - [facility] entire w/wo w/wo /2015 - [facility] contrast MRI Center MRI DATE: 05/16/2015. Read by: Rosalio Ramos MD Dictated Date/time: 05/17/15 09:18 Electronically Signed by: Rosalio Ramos MD 05/17/15 09:42 FINAL REPORT INDICATION: Meningiomatosis. DISCUSSION: Multiplanar imaging of the entire spinal axis is performed both before and after intravenous administration of 15 mL Multihance gadolinium contrast there are no studies for comparison. I do not see mass lesion or enhancement within the spinal canal or neural foramina to suggest the presence of meningioma or schwannoma in the spinal axis. Extensive degenerative changes are present: There is exaggeration of the cervical lordosis at the upper cervical levels and reversal of the cervical lordosis at the mid and lower cervical levels. The craniocervical junction is unremarkable. C2-C3, there is no canal or foraminal narrowing. At C3-C4, there is anterolisthesis, pseudobulging the disc, and scoliosis with convexity to the right area there is severe stenosis of the spinal canal with effacement of the anterior CSF space and flat tening and remodeling of and post cord contour associated with minimal volume loss in or severe narrowing of the left neural foramen and marked hypertrophy of the left-sided facet joint. At C4-C5, there is severe canal stenosis with an AP diameter 8 mm. There is diffuse bulging of the disc in combination with kyphosis and congenitally short pedicles. There is a loss of the CSF space ant eriorly and indentation of the anterior cord contour with volume loss. There is moderate left-sided neural foraminal stenosis. At C5-C6, there is severe stenosis with mild canal with an AP diameter of 8 mm. There is marked volume loss in the cord with a cord diameter of only 4.4 mm. Flattening and indentation of the anterior an d posterior cord surfaces is present and there is contact between the anterior cord surface and the disc material. The neural foramina are widely patent. At C6-C7, there is a small central disc protrusion. There is severe stenosis the canal. There is chronic flattening and remodeling of both the anterior and posterior cord contour, and there is cord volume loss. The neural foramina are patent. The thoracic cord contour and signal are normal. There is some exaggeration of the normal thoracic kyphosis, and there are are numerous levels of facet joint and ligamentum flavum hypertrophy which prod uce mild indentation on the posterior thecal sac contour without contacting or displacing the cord. There is a calcified gallstone in the gallbladder. The distal cord and conus are unremarkable. The conus terminates at the thoracolumbar junction. The T12-L1 at L1-L2 disc levels are grossly unremarkable. L2-L3, there is moderate canal stenosis secondary to short pedicles, diffuse disc bulging, and marked facet joint and interspinous ligament hypertrophy. There is moderate narrowing of both neural foramina. L3-L4, there is focal kyphosis and rotatory subluxation. There is diffuse disc osteophyte complex with severe stenosis of the canal and centralization of the nerve roots. Bilateral facet joint hypertrop hy is also present at this level associated with periarticular marrow edema. There is moderate severe bilateral foraminal narrowing. L4-L5, similar changes are present. There is kyphosis and dextroscoliotic curvature associated with diffuse disc bulging and disc degeneration. There is only moderate stenosis the canal but there is sev ere stenosis of the left subarticular zone and neural foramen and moderate severe stenosis the right neural foramen. L5-S1, there is a diffuse disc bulge with a central disc protrusion. There is moderate stenosis the canal. Bilateral facet joint arthropathy is present. There is scoliosis with convexity to the right re sulting in severe narrowing of the left neural foramina and lateral recess area there is moderate stenosis the right neural foramen. IMPRESSION: No radiographic evidence of schwannoma or meningioma in the spinal axis. 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 Dextroscoliotic and kyphotic curvatures in the lower lumbar levels associated with moderate canal stenosis and severe left-sided neural foraminal narrowing. Cholelithiasis. Ext Lower Ext Lower EXAM: US BILATERAL LOWER EXTREMITY VENOUS DOPPLER - [facility] Venous Venous /2015 - Medical Doppler Doppler [facility] DATE: 05/15/2015. Read by: Lea Guerrero MD Dictated Date/time: 05/16/15 12:06 Electronically Signed by: Lea Guerrero MD 05/16/15 12:08 FINAL REPORT INDICATION: Lower extremity pain. ADDITIONAL INFORMATION: None. COMPARISON: None. TECHNIQUE: Multiplanar grayscale, color Doppler and spectral Doppler ultrasound images of the bilateral lower extremity veins were obtained. FINDINGS: The bilateral common femoral, greater saphenous, superficial femoral, and popliteal veins demonstrate normal compressibility and color Doppler signal. IMPRESSION: 1. Negative for bilateral lower extremity deep vein thrombosis. CHEM PANEL Magnesium Lvl 2.4 mg/dL 1.8 - 2.4 05/15 [facility] CHEM PANEL Phosphorus 1.7 mg/dL 2.5 - 4.5 05/[address] HEMATOLOGY Plt Morph Normal 05/15 [facility] (05/15/15 4:27 AM) [place] HEMATOLOGY RBC Morph Normal 05/15 [facility] (05/15/15 4:27 AM) [place] HEMATOLOGY INR 1.24 0.85 - 05/15 [facility] 1.17 [facility] HEMATOLOGY PT 15.9 s 12.0 - 05/15 [facility] 14.7 [facility] Esophagus Esophagus BA EXAM: FLUOROSCOPY MODIFIED BARIUM SWALLOW 05/14 - [facility] BA swallow swallow - Medical function function This report was dictated by a Dispatcher Relay/ Fellow. I have personally reviewed the images as Center video DX video DX well as the Resident's interpretation and agree with the findings. DATE: 05/14/2015 at 1117 Read by: Mireya Rowan MD Resident: Mireya Rowan MD Dictated Date/time: 05/14/15 15:56 Electronically Signed by: Brian Jordan MD 05/14/15 16:30 FINAL REPORT INDICATION: Dysphagia ADDITIONAL INFORMATION: meningiomatosis s/p resection, epilepsy, blindness , hypopituitarism, and reduced hearing COMPARISON: None. TECHNIQUE: Oral barium contrast of differing consistencies was given to the patient to assess swallowing mechanism. The study was performed in conjunction with speech pathology. FLUOROSCOPY TIME: 1 minute 30 seconds SKIN DOSE: 4.2 mGy FINDINGS: The patient was given barium contrast of different consistencies. The swallowing reflex is triggered in a delayed fashion with ineffective bolus propulsion. Thin barium with a straw: The oral and pharyngeal phases are abnormal, with bolus holding and tongue pumping with ineffective propulsion. There was deep penetration and silent aspiration observed during swallow. Mcdowell barium with spoon: The oral and pharyngeal phases are also delayed. There was penetration and regurgitation observed during swallow. Pureed pudding barium with spoon: The oral and pharyngeal phases are delayed. There was penetration and regurgitation observed during swallow. IMPRESSION: 1. Penetration and asymptomatic (silent) aspiration during the swallow w/ thin and nectar consistency barium. 2. Penetration and regurgitation with pured pudding consistency barium. CHEM PANEL Magnesium Lvl 2.2 mg/dL 1.8 - 2.4 05/[address] CHEM PANEL Phosphorus 2.1 mg/dL 2.5 - 4.5 05/[address] Abdomen AP Abdomen AP DX EXAM: XR ABDOMEN 1 VIEW 05/13 - [facility] - [facility] DATE: 05/13/2014 at 1425 hours. Read by: Brian Jordan MD Dictated Date/time: 05/14/15 09:16 Electronically Signed by: Brian Jordan MD 05/14/15 09:17 FINAL REPORT INDICATION: Tube placement/removal/reposition. ADDITIONAL INFORMATION: None. COMPARISON: 05/12/2014 at 1928 hours. TECHNIQUE: Limited radiography of the abdomen performed. One frontal radiograph provided for interpretation. FINDINGS: Transesophageal feeding tube with guidewire has its tip in the pyloroduodenal junction. APPEALS NURSE shunt is unchanged. No other significant changes. IMPRESSION: 1. Tube positions as above. Interpreted by Brian Jordan MD. ENDOCRINOLO Cortisol Free null 05/13 Result Comment: [facility] Adult Reference Ranges for Cortisol, Free, Medical LC/MS/MS: Center 8:00 - 10:00 AM 0.07-0.93 mcg/dL 4:00 - 6:00 PM 0.04-0.45 mcg/dL 10:00 - 11:00 PM 0.04-0.35 mcg/dL Test Performed at: [facility] [address] [place] [address] Jarad Moran MD, PhD CHEM PANEL Magnesium Lvl 2.2 mg/dL 1.8 - 2.4 05/13 [facility] CHEM PANEL Phosphorus 3.2 mg/dL 2.5 - 4.5 05/13 [facility] HEMATOLOGY PT 17.0 s 12.0 - 05/13 [place] 14.7 /2015 [facility] HEMATOLOGY PTT 53.3 s 22.9 - 05/13 [place] 35.8 [facility] HEMATOLOGY INR 1.35 0.85 - 05/13 [place] 1.17 [facility] HEMATOLOGY Polychrom slight 05/13 [facility] HEMATOLOGY Hypochrom 1+ None Seen 05/13 [facility] (05/13/15 3:21 AM) [place] HEMATOLOGY Anisocyte 1+ None [facility] [place] (05/13/15 3:21 AM) Abdomen AP Abdomen AP DX Exam: Abdomen x-ray. 05/12 - [facility] - [facility] DATE: 05/12/2015. Read by: Lea Guerrero MD Dictated Date/time: 05/13/15 08:59 Electronically Signed by: Lea Guerrero MD 05/13/15 08:59 FINAL REPORT INDICATIONS: Tube placement. FINDINGS: IMPRESSION: A Dobbhoff tube is seen with tip overlying the second portion of the duodenum. HEMATOLOGY Eosinophils # 0.1 K/CMM 0.0 - 0.5 05/12 [facility] DRUG SCREEN U Cannab Scr Negative Negative 05/12 [facility] *NA* [place] (05/11/15 6:25 PM) DRUG SCREEN U Opiate Scr Negative Negative 05/12 [facility] *NA* [place] (05/11/15 6:25 PM) DRUG SCREEN U Cocaine Scr Negative Negative 05/12 [facility] *NA* [place] (05/11/15 6:25 PM) DRUG SCREEN U Phencyc Scr Negative Negative 05/12 [facility] [place] (05/11/15 6:25 PM) DRUG SCREEN UDS Note See Note 05/12 [facility] (05/11/15 6:25 PM) Center DRUG SCREEN U Benzodia Positive Negative 05/12 [facility] *ABN* Center (05/11/15 6:25 PM) DRUG SCREEN U Amph Scr Negative Negative 05/12 [facility] *NA* [place] (05/11/15 6:25 PM) DRUG SCREEN U Amanda Scr Negative Negative 05/12 [facility] *NA* [place] (05/11/15 6:25 PM) URINE AND UA Sq Epi None Seen 05/[address] URINE AND UA RBC null 0 - 2 05/[address] URINE AND UA Mucus Few /LPF None Seen 05/12 [facility] STOOL /LPF /2015 [facility] URINE AND UA WBC 1 /HPF 0 - 5 05/12 [facility]2015 [facility] URINE AND UA Leuk Est Negative Negative 05/12 [facility] (05/11/15 6:25 PM) [place] URINE AND UA pH 6.0 5.0 - 8.0 05/[address] URINE AND UA Spec Grav 1.019 <=1.030 05/[address] URINE AND UA Nitrite Negative Negative 05/12 [facility] (05/11/15 6:25 PM) [place] URINE AND UA Blood Negative Negative 05/12 [facility] (05/11/15 6:25 PM) [place] URINE AND UA 2.0 mg/dL 0.1 - 1.0 05/12 [facility] Urobilinogen /2015 [facility] URINE AND UA Ketones 60 mg/dL Negative 05/12 [facility] mg/dL /2015 [facility] URINE AND UA Bili Negative Negative 05/12 [facility] *NA* [place] (05/11/15 6:25 PM) URINE AND UA Protein 20 mg/dL Negative 05/12 [facility] mg/dL [facility] URINE AND UA Glucose Negative Negative 05/12 [facility] mg/dL mg/dL [facility] URINE AND UA Turbidity Clear Clear 05/12 [facility] (05/11/15 6:25 PM) [place] URINE AND UA Color Yellow Yellow 05/12 [facility] Medical *NA* [place] (05/11/15 6:25 PM) URINE CHEM U Preg Negative Negative 05/12 [facility] (05/11/15 6:25 PM) [place] ENDOCRINOLO Cortisol Free 0.07 ug/dL 05/12 Result Comment: [facility] Adult Reference Ranges for Cortisol, Free, Medical LC/MS/MS: [place] 8:00 - 10:00 AM 0.07-0.93 mcg/dL 4:00 - 6:00 PM 0.04-0.45 mcg/dL 10:00 - 11:00 PM 0.04-0.35 mcg/dL Test Performed at: [facility] [address] [place] [address] Jarad Moran MD, PhD PARATHYROID Ca Norm WB 1.08 1.05 - 05/12 [facility] PROFILE mMol/L . [facility] PARATHYROID Ca Ion WB 1.11 . - 05/12 [facility] PROFILE mMol/L 05.28 [facility] TOXICOLOGY [place] Lvl 41 05/12 Result Comment: Therapeutic Levels: [facility] Drug Dosage Trough (mcg/mL) Peak (mcg/mL) Medical mL 500 mg BID 3.1 - 10.0 10.0 - 25.0 Center 1000 mg BID 4.9 - 37.1 30.0 - 40.0 1500 mg BID 7.0 - 34.0 36.1 - 70.0 Toxic level not established Test Performed at: [facility] [facility], [address] [place] [address] Som Purvis MD, FCAP Brain w/wo Brain w/wo EXAMINATION: MRI brain with and without contrast. - [facility] contrast contrast MRI /2015 - [facility] DATE: 05/11/2015. Read by: Rosalio Ramos MD Dictated Date/time: 05/12/15 15:54 Electronically Signed by: Rosalio Ramos MD 05/12/15 16:02 FINAL REPORT INDICATION: Meningiomatosis. Weakness. DISCUSSION: Multiplanar MRI imaging of the brain is performed both before and after intravenous administration of 15 cc Multihance gadolinium contrast. Comparison is made 2 a similar study dated 06/01/2009 Over the interval, there has been progression of all of the homogeneously enhancing extra-axial masses noted on the previous study consistent with multiple meningiomas by history. An increase of 20 25% in diameter is noted in most of the lesions. The mass involving the left petrous clinoid ligament and this CP angle is causing progressive displacement of the left sony and cerebellar peduncle with furt her distortion of the fourth ventricular contour. There is now clear involvement of the internal auditory canal. Masses in the anterior cranial fossa along both sphenoid wings have increased in size wit h further displacement of the frontal and temporal lobes respectively. The size the ventricular system is increased over the comparison study, most notably in the third ventricular contour. There is dilatation of the temporal horns. Extra-axial spaces are similar or slightly enlarged over the interval. The shunt catheter remains in place through the right parietal region with its tip in the midbrain. Areas of encephalomalacia in the left posterior lateral frontal lobe and right antra are inferior frontal lobe are again noted unchanged. Edema in the left temporal lobe possibly related to the adjacent meningioma in the middle cranial fossa is grossly stable. IMPRESSION: Interval enlargement of the ventricular system, hydrocephalus versus interval volume loss. Interval diffuse progression of meningiomas. Brain wo Brain wo EXAMINATION: CT head without contrast. 05/11 - [facility] contrast CT contrast CT /[address] [place] [address] DATE: 05/11/2015. Read by: Rosalio Ramos MD Dictated Date/time: 05/11/15 16:27 Electronically Signed by: Rosalio Ramos MD 05/11/15 18:22 FINAL REPORT INDICATION: Weakness. DISCUSSION: Noncontrast images of the head are compared to an MRI study dated 2007 Over the interval, there has been significant enlargement of the ventricular system. A shunt catheter entering the right parieto-occipital region with its tip near the tectum remains in place. The fourt h ventricle is probably also slightly increased in size relative to the comparison. Extra-axial masses in the left CP angle and anterior cranial fossa are grossly similar in size. Areas of encephalomalacia in the left MCA distribution and right inferior frontal region are also again noted. The over all quality the exam is high limited by motion artifact. IMPRESSION: Interval development of hydrocephalus, question shunt malfunction. Otherwise stable exam. HEMATOLOGY Basophils # 0.1 K/CMM 0.0 - 0.2 05/[address] HEMATOLOGY Eosinophils # 0.2 K/CMM 0.0 - 0.5 05/[address] TOXICOLOGY Lamotrigine 38.4 4.0 - 18.0 05/10 Result Comment: Test Performed at: [facility] [facility], [address] [place] [address] Som Purvis MD, [facility] HEMATOLOGY Eosinophils # 0.2 K/CMM 0.0 - 0.5 05/10 [facility] Hip 2 views Hip 2 views EXAM: BILATERAL HIP 2 VIEWS AND AP PELVIS 05/10 - [facility] DATE: May 10, 2015 01:25:00 PM Read by: Branden Ruvalcaba MD Dictated Date/time: 05/10/15 15:25 Electronically Signed by: Branden Ruvalcaba MD 05/10/15 15:27 FINAL REPORT INDICATION: Pain in limb COMPARISON: Right hip series 11/30/2008 TECHNIQUE: AP and frogleg lateral radiographs of each hip and a single AP radiograph of the pelvis FINDINGS: No fracture, dislocation or other acute bony abnormality is identified. Hip joint spaces are preserved. There are small bilateral acetabular osteophytes. No narrowing, sclerosis, or erosions of the pubic symphysis or sacroiliac joints. APPEALS NURSE shunt tubing overlies the pelvis. IMPRESSION: No bony abnormality identified. Hip 2 views Hip 2 views EXAM: BILATERAL HIP 2 VIEWS AND AP PELVIS 05/10 - [facility] DATE: May 10, 2015 01:25:00 PM Read by: Branden Ruvalcaba MD Dictated Date/time: 05/10/15 15:25 Electronically Signed by: Branden Ruvalcaba MD 05/10/15 15:27 FINAL REPORT INDICATION: Pain in limb COMPARISON: Right hip series 11/30/2008 TECHNIQUE: AP and frogleg lateral radiographs of each hip and a single AP radiograph of the pelvis FINDINGS: No fracture, dislocation or other acute bony abnormality is identified. Hip joint spaces are preserved. There are small bilateral acetabular osteophytes. No narrowing, sclerosis, or erosions of the pubic symphysis or sacroiliac joints. APPEALS NURSE shunt tubing overlies the pelvis. IMPRESSION: No bony abnormality identified. CHEM PANEL Lactic Acid 0.9 mMol/L 0.5 - 2.2 05/10 [facility] PARATHYROID Ca Norm WB 1.01 1.05 - 05/10 [facility] PROFILE mMol/L 1. [facility] PARATHYROID Ca Ion WB 0.98 1. - 05/10 [facility] PROFILE mMol/L 1. [facility] TOXICOLOGY Lamotrigine 34.2 4.0 - 18.0 05/10 Result Comment: Test Performed at: [facility] Lvl microgram [place] [facility], [address] [place] [address] Som Purvis MD, AP TOXICOLOGY [place] Lvl 12 05/10 Result Comment: Therapeutic Levels: [facility] microgram Drug Dosage Trough (mcg/mL) Peak (mcg/mL) Medical mL 500 mg BID 3.1 - 10.0 10.0 - 25.0 Center 1000 mg BID 4.9 - 37.1 30.0 - 40.0 1500 mg BID 7.0 - 34.0 36.1 - 70.0 Toxic level not established Test Performed at: [facility], [address] [place] [address] Som Purvis MD, [facility] Vital Signs Vital Sign Value Date Comments Source Systolic (mm Hg) 100 07/06/2015 [facility] Diastolic (mm Hg) 59 07/06/2015 [facility] Respitory Rate 18 07/06/2015 [facility] Respitory Rate 18 07/06/2015 [facility] Systolic (mm Hg) 104 07/06/2015 [facility] Diastolic (mm Hg) 70 07/06/2015 [facility] Temperature Oral (F) 97.4 F 07/05/2015 [facility] Systolic (mm Hg) 105 07/05/2015 [facility] Diastolic (mm Hg) 60 07/05/2015 [facility] Temperature Oral (F) 97.8 F 07/05/2015 [facility] Respitory Rate 18 07/05/2015 [facility] Heart Rate 84 07/05/2015 [facility] Heart Rate 73 05/28/2015 [facility] Temperature Oral (F) 99.5 F 05/28/2015 [facility] Systolic (mm Hg) 93 05/28/2015 [facility] Diastolic (mm Hg) 55 05/28/2015 [facility] Respitory Rate 18 05/28/2015 [facility] Heart Rate 52 05/28/2015 [facility] Systolic (mm Hg) 101 05/28/2015 [facility] Diastolic (mm Hg) 54 05/28/2015 [facility] Respitory Rate 17 05/28/2015 [facility] Temperature Oral (F) 97.4 F 05/28/2015 [facility] Respitory Rate 18 05/28/2015 [facility] Heart Rate 54 05/28/2015 [facility] Systolic (mm Hg) 98 05/28/2015 [facility] Diastolic (mm Hg) 59 05/28/2015 [facility] Temperature Oral (F) 97.9 F 05/28/2015 [facility] Weight 76.818 05/10/2015 [facility] Height 165.1 cm 05/09/2015 [facility] Weight 81.818 05/09/2015 [facility] BMI Calculated 30.02 05/09/2015 [facility] Encounters Location Location Encounter Encounter Reason Attending ADM DC Status Source Details Type Number For Provider Date Date Visit [facility] [id number] Anmol 05/09 05/28 [facility] Matty Clemons /2015 [facility] [place] [id number] Vilma 07/04 07/05 [facility] Emergency [place] /2015 [facility] Outpatient [id number] David 07/25 07/26 [facility] Serra /2015 [facility] Procedures Procedure Code Date Perfomer Comments Source Biopsy of breast [id number] [facility] Creation of APPEALS NURSE [id number] [facility] Excision of [id number] [facility]
--- OUTSIDE RECORDS SUMMARY | 2018-10-02 03:47 | XMS REPORT | Summary of Care ---
:1975 Author Name Sallie Cleveland Address Unavailable Unavailable , Care Team Providers Name Role Phone SYLVIE Sorto, BLAINE Unavailable Unavailable IZABEL Sorto, EILEEN Unavailable Unavailable PIERRE OTERO, [facility] RICK Quan Unavailable Unavailable TYSON BA AL Unavailable Unavailable SYLVIE OTERO AL, BLAINE Allen Unavailable Unavailable Unavailable Unavailable Unavailable Functional Status Name Dates Details Functional status health issues are not documented Status: Name Dates Details Cognitive status health issues are not documented Status: Problems Name Dates Details Adrenal insufficiency (255.41, E27.40) Status: Active Anxiety (300.00, F41.9) Status: Active Hypothyroidism (244.9, E03.9) Status: Active 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, E29.1) Status: Active 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, 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 Tinnitus (388.30, H93.19) Status: Active Urinary retention with incomplete bladder emptying (788.21, R33.9) Status: Active Hearing loss (389.9, H91.90) Status: Active Chronic tension-type headache, intractable (339.12, G44.221) Status: Active Mixed hearing loss, bilateral (389.22, H90.6) Status: Active Low-set ears (744.29, Q17.4) Status: Active Vitamin D insufficiency (268.9, E55.9) Status: Active 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, 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, 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 Start : 28-Sep-2007 Active levETIRAcetam 1000 MG Oral Tablet TAKE 1 TABLET BY MOUTH TWICE DAILY Quantity: 60 Refills: 11 BLAINE MERCER M.D. Start : 23-Mar-2008 Active clonazePAM 0.5 MG Oral Tablet TAKE 1 TABLET BY MOUTH TWICE DAILY Quantity: 60 Refills: 5 BLAINE MERCER M.D. Start : 22-Jul-2006 Active Sertraline HCl - 100 MG Oral Tablet TAKE 1 TABLET BY MOUTH DAILY Quantity: 30 Refills: 10 BLAINE MERCER M.D. Start : 08-Jul-2018 Active lamoTRIgine 200 MG Oral Tablet TAKE 2 TABLETS BY MOUTH TWICE DAILY Quantity: 120 Refills: 11 BLAINE MERCER M.D. Start : 08-Sep-2011 Active Levothyroxine Sodium 125 MCG Oral Tablet TAKE 1 TABLET BY MOUTH DAILY Quantity: 90 Refills: 3 EILEEN PAIZ M.D. Start : 17-Jun-2016 Active Lyrica 75 MG Oral Capsule TAKE 1 CAPSULE TWICE DAILY. Quantity: 60 Refills: 5 BLAINE MERCER M.D. Start : 21-Jun-2018 Active Ergocalciferol 34348 UNIT Oral Capsule TAKE 1 CAPSULE WEEKLY. Quantity: 12 Refills: 0 EILEEN PAIZ M.D. 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 History of sinusitis (V12.69, Z87.09) Status: Resolved History of streptococcal pharyngitis (V12.09, Z87.09) Status: Resolved History of thyroid disease (V12.29, Z86.39) Status: Resolved Procedures Procedure Dates Details [[facility], LAT[facility]] VITAMIN D, 25-HYDROXY, LC/MS/MS Date: 24-Jun-2018 History of Appendectomy Completed History of Ovarian Surgery Completed Immunization Name Dates Details Influenza on: 01-Mar-2013 Lot #: [id number] Family History Name Dates Details Family history of Heart Disease (V17.49) Comments: Family History Status: Active Name Dates Details Family history of diabetes mellitus (V18.0, Z83.3) Status: Active Family history of hypertension (V17.49, Z82.49) Status: Active Family history of thyroid disease (V18.19, Z83.49) Status: Active Social History Name Dates Details - Status: Name Dates Details Unknown if ever smoked Never smoker Vital Signs Date Test Result Details [id number] BP Systolic 97 mm[Hg] Status: Comments: Location: E; Position: Sitting BP Diastolic 61 mm[Hg] Status: Comments: Location: [facility] [place]; Position: Sitting Height 66 in Status: Weight 154 lb Status: Body Mass Index Calculated 24.86 kg/m2 Status: Body Surface Area Calculated 1.79 m2 Status: Heart Rate 65 /min Status: [id number] BP Systolic 101 mm[Hg] Status: Comments: Location: [facility]; Position: Sitting BP Diastolic 69 mm[Hg] Status: Comments: Location: E; Position: Sitting Height 66 in Status: Weight 159 lb Status: Body Mass Index Calculated 25.66 kg/m2 Status: Body Surface Area Calculated 1.81 m2 Status: Heart Rate 61 /min Status: Results Date Description Value Details [id number] [QL] BASIC METABOLIC PANEL W/EGFR GLUCOSE 89 mg/dl (Normal) Range: 65-139 Comments: Non-fasting reference interval UREA NITROGEN (BUN) 10 mg/dl (Normal) Range: 7-25 CREATININE 0.99 mg/dl (Normal) Range: 0.50-1.10 eGFR NON- 69 {ML/MIN/1.7} (Normal) Range: > OR=60 eGFR 80 {ML/MIN/1.7} (Normal) Range: > OR=60 BUN/CREATININE RATIO NOT APPLICABLE {CALC} Range: 6-22 SODIUM 137 mmol/L (Normal) Range: 135-146 POTASSIUM 4.2 mmol/L (Normal) Range: 3.5-5.3 CHLORIDE 100 mmol/L (Normal) Range: 98-110 CARBON DIOXIDE 32 mmol/L (Normal) Range: 20-32 CALCIUM 9.0 mg/dl (Normal) Range: 8.6-10.2 Comments: SPECIMEN RECEIVED DATE AND TIME: :42 [[facility]] T4, TOTAL (THYROXINE) T4, TOTAL (THYROXINE) 6.0 {mcg/dl} Range: 4.8-10.4 Comments: <1 month: Not Established 1-23 months: 6.0-13.2 mcg/dL 2-12 years: 5.5-12.1 mcg/dL 13-20 years: 5.5-11.1 mcg/dL >20 years: 4.8-10.4 mcg/dL 1st Trimester: 6.4-15.2 mcg/dL 2nd Trimester: 7.4-15.2 mcg/dL 3rd Trimester: 7.7-13.8 mcg/dL All Trimesters Together: 7.0-14.7 mcg/dL Conversion factor: 1 mcg/dL= 12.9 nmol/LSPECIMEN RECEIVED DATE AND TIME: :42 [[facility]] T4, FREE T4, FREE 1.2 ng/dl (Normal) Range: 0.8-1.8 Comments: SPECIMEN RECEIVED DATE AND TIME: :42 [[facility]] TSH, 3RD GENERATION TSH 0.15 {MIU/L} (Below low threshold) Comments: Reference Range > or=20 Years 0.40-4.50 Ranges First trimester 0.26-2.66 Second trimester 0.55-2.73 Third trime ster 0.43-2.91SPECIMEN RECEIVED DATE AND TIME: :42 [[facility]] VITAMIN D, 25-HYDROXY, Comments: REPORT COMMENT:FASTING :NO LC/MS/MS VITAMIN 13 ng/ml Range: 30-100 D,25-OH,TOTAL,IA (Below low Comments: Vitamin D Status 25-OH Vitamin D: Deficiency: <20 ng/mLInsufficiency: 20 - 29 ng/mLOptimal: > or=30 ng/mL For 25-OH Vitamin D testing on simon threshold) ents on D2-supplementation and patients for whom quantitation of D2 and D3 fractions is required, the QuestAssureD(TM)25-OH VIT D, (D2,D3), LC /MS/MS is recommended: order code [id number] (patients >2yrs). For more information on this test, go to:http:// education.[employer]/faq/YTO334(This link is being provided for informational/educational purposes only.)SPECIMEN RECEIVED DATE AND TIME: [id number] Plan of Care Name Dates Details Planned Observations Planned Goals not documented Planned Encounters Appointment; BLAINE MERCER M.D. On: 20-Jun-2019 16:00 Interventions Provided Medication ChangesSertraline HCl - 100 MG Oral Tablet - Renew Instructions Name Dates Details Instructions not documented Encounters Appointment; VIET GRIMM M.D. On: 15-Jul-2016 10:30 Encounter Diagnosis: Problem not documented Appointment; TED BA On: 01-Aug-2016 9:00 Encounter Diagnosis: Problem not documented Appointment; VIET GRIMM M.D. On: 21-Oct-2016 10:00 Encounter Diagnosis: Problem not documented Appointment; RACHELLE RAWLS M.D. On: 12-Jan-2017 10:30 Encounter Diagnosis: Problem not documented Appointment; EILEEN PAIZ M.D. On: 23-Mar-2017 9:00 Encounter Diagnosis: Problem not documented Appointment; RACHELLE RAWLS M.D. On: 16-Apr-2017 15:30 Encounter Diagnosis: Problem not documented Appointment; EILEEN PAIZ M.D. On: 21-Sep-2017 9:45 Encounter Diagnosis: Problem not documented Appointment; EILEEN PAIZ M.D. On: 22-Mar-2018 9:45 Encounter Diagnosis: Problem not documented Appointment; EILEEN PAIZ M.D. On: 08-Jun-2018 15:40 Encounter Diagnosis: Problem not documented Appointment; BLAINE MERCER M.D. On: 21-Jun-2018 15:00 Encounter Diagnosis: Problem not documented
--- OUTSIDE RECORDS SUMMARY | 2018-10-02 03:47 | XMS REPORT | Summary of Care ---
:1975 Author Organization [facility] Address [address] [place] [id number]- Care Team Providers Name Role Phone Alfie Garcia Primary Care Physician Unavailable Encounter [facility] Gideon(SERAFIN) [phone] Date(s): 07/05/15 - 07/05/15 [facility] [address] [place] [address] Professional Services provided by [facility] [place] [address]- Discharge Diagnosis: Vomiting, unspecified Discharge Diagnosis: Vomiting in adult Discharge Disposition: Home Attending Physician: Vilma Melton MD Admitting Physician: Jim Frost MD Vital Signs Most recent to oldest [Reference 1 2 3 Range]: Temperature Oral [96.4-99.1 DegF] 97.4 DegF 97.8 DegF (07/05/15 5:29 PM) (07/05/15 2:44 PM) Blood Pressure [90-140/60-90 mmHg] 100/59 mmHg 104/70 mmHg 105/60 mmHg (07/05/15 8:55 PM) (07/05/15 7:43 PM) (07/05/15 5:29 PM) Respiratory Rate [14-20 BRMIN] 18 BRMIN 18 BRMIN 18 BRMIN (07/05/15 8:55 PM) (07/05/15 7:43 PM) (07/05/15 2:44 PM) Peripheral Pulse Rate [60-100 bpm] 84 bpm (07/05/15 2:44 PM) Problem List Condition Effective Dates Status Health Status Informant Acid reflux(Confirmed) Resolved Blind(Confirmed) Resolved Blood clot(Confirmed) Resolved Brain tumor(Confirmed) Resolved Breast cyst(Confirmed) Resolved Epilepsy(Confirmed) Resolved Hearing impaired(Confirmed) Resolved Hypothyroid(Confirmed) Resolved Ovarian cyst(Confirmed) Resolved Seizure(Confirmed) Resolved Allergies, Adverse Reactions, Alerts Substance Reaction Severity Status iodine topical Active penicillins Active seafood Active Medications No data available for this section Results ELECTROLYTES Most recent to oldest [Reference Range]: 1 Sodium Lvl [135-145 mEq/L] 143 mEq/L (07/05/15 3:46 PM) Potassium Lvl [3.5-5.1 mEq/L] 3.1 mEq/L *LOW* (07/05/15 3:46 PM) Chloride Lvl [95-109 mEq/L] 108 mEq/L (07/05/15 3:46 PM) CO2 [24-32 mEq/L] 26 mEq/L (07/05/15 3:46 PM) AGAP [10.0-20.0 mEq/L] 12.1 mEq/L (07/05/15 3:46 PM) CHEM PANEL Most recent to oldest [Reference Range]: 1 Creatinine Lvl [0.50-1.40 mg/dL] 0.77 mg/dL (07/05/15 3:46 PM) eGFR 96 mL/min/1.73m2 1 *NA* (07/05/15 3:46 PM) BUN [7-22 mg/dL] 3 mg/dL *LOW* (07/05/15 3:46 PM) Glucose Lvl [70-99 mg/dL] 116 mg/dL *HI* (07/05/15 3:46 PM) Calcium Lvl [8.5-10.5 mg/dL] 8.1 mg/dL *LOW* (07/05/15 3:46 PM) 1Result Comment: The eGFR is calculated using the CKD-EPI formula. In most young , healthy individualsthe eGFR will be >90 mL/min/1.73m2. The eGFR declines with age. An eGFR of 60-89 may be normal in some populations, particularly the elderly, for whom the CKD-EPI formula has not been extensively validated. Use of the eGFR is not recommended in the following populations: Individuals with unstable creatinine concentrations, including patients and those with serious co-morbid conditions. Patients with extremes in muscle mass or diet. The data above are obtained from the National Kidney Disease Education Program ( NKDEP) which additionally recommends that when the eGFR is used in patients with extremes of body mass index for purposesof drug dosing, the eGFR should be multiplied by the estimated BMI.URINE AND STOOL Most recent to oldest [Reference Range]: 1 UA Turbidity [Clear] Clear (07/05/15 3:19 PM) UA Color [Yellow] Yellow *NA* (07/05/15 3:19 PM) UA pH [5.0-8.0] 7.0 (07/05/15 3:19 PM) UA Spec Grav [<=1.030] 1.015 (07/05/15 3:19 PM) UA Glucose [Negative mg/dL] Negative mg/dL (07/05/15 3:19 PM) UA Blood [Negative] Negative (07/05/15 3:19 PM) UA Ketones [Negative mg/dL] Negative mg/dL *NA* (07/05/15 3:19 PM) UA Protein [Negative mg/dL] Negative mg/dL (07/05/15 3:19 PM) UA Urobilinogen [0.1-1.0 EU/dL] 0.2 EU/dL (07/05/15 3:19 PM) UA Bili [Negative] Negative *NA* (07/05/15 3:19 PM) UA Leuk Est [Negative] Negative (07/05/15 3:19 PM) UA Nitrite [Negative] Negative (07/05/15 3:19 PM) UA Sq Epi [Few] None Seen (07/05/15 3:19 PM) HEMATOLOGY Most recent to oldest [Reference Range]: 1 WBC [3.7-10.4 K/CMM] 6.2 K/CMM (07/05/15 3:46 PM) RBC [4.20-5.40 M/CMM] 3.91 M/CMM *LOW* (07/05/15 3:46 PM) Hgb [12.0-16.0 g/dL] 10.8 g/dL *LOW* (07/05/15 3:46 PM) Hct [36.0-48.0 %] 32.5 % *LOW* (07/05/15 3:46 PM) MCV [80.0-98.0 fL] 83.1 fL (07/05/15 3:46 PM) MCH [27.0-31.0 pg] 27.6 pg (07/05/15 3:46 PM) MCHC [32.0-36.0 g/dL] 33.2 g/dL (07/05/15 3:46 PM) RDW [11.5-14.5 %] 15.8 % *HI* (07/05/15 3:46 PM) Platelet [133-450 K/CMM] 357 K/CMM (07/05/15 3:46 PM) MPV [7.4-10.4 fL] 6.9 fL *LOW* (07/05/15 3:46 PM) Segs [45.0-75.0 %] 56.0 % (07/05/15 3:46 PM) Bands [0.0-11.0 %] 0.0 % (07/05/15 3:46 PM) Lymphocytes [20.0-40.0 %] 40.0 % (07/05/15 3:46 PM) Atypical Lymphs [<=0.0 %] 0.0 % (07/05/15 3:46 PM) Monocytes [2.0-12.0 %] 4.0 % (07/05/15 3:46 PM) Segs-Bands # [1.5-8.1 K/CMM] 3.5 K/CMM (07/05/15 3:46 PM) Lymphocytes # [1.0-5.5 K/CMM] 2.5 K/CMM (07/05/15 3:46 PM) Monocytes # [0.0-0.8 K/CMM] 0.2 K/CMM (07/05/15 3:46 PM) Tot Cell Ct 100 *NA* (07/05/15 3:46 PM) RBC Morph Normal (07/05/15 3:46 PM) Plt Morph Normal (07/05/15 3:46 PM) Immunizations Vaccine Date Refusal Reason pneumococcal 23-valent vaccine 05/11/15 Procedures Procedure Date Related Diagnosis Body Site Biopsy of breast Creation of [employer] shunt Excision of ovary Social History Social History Type Response Alcohol Never Smoking Status Never smoker; Ready to change: No; Concerns about tobacco use in household: No; Exposure to Tobacco Smoke None; Cigarette Smoking Last 365 Days No; Reg Smoking Cessation Counseling No Assessment and Plan No data available for this section
--- OUTSIDE RECORDS SUMMARY | 2018-10-02 03:47 | XMS REPORT ---
:1975 [facility] Address [address] [place] [address] [place] [address] Care Team Providers Name Role Phone Unavailable Unavailable Unavailable Problems This patient has no known problems. Allergies, Adverse Reactions, Alerts This patient has no known allergies or adverse reactions. Medications This patient has no known medications.
--- OUTSIDE RECORDS SUMMARY | 2018-10-02 03:47 | XMS REPORT | Summary of Care ---
:1975 Author Organization [facility] Address [address] [place] [id number]- Care Team Providers Name Role Phone Alfie Garcia Primary Care Physician Unavailable Encounter HQ Viky_stanley(SERAFIN) [id number] Date(s): 05/09/15 - 05/28/[address] Professional Services provided by [facility] [place] [address]- Discharge Disposition: DC/DISC TO REHAB Attending Physician: Emma Martinez MD Admitting Physician: Anmol Clemons MD Vital Signs Most recent to oldest 1 2 3 [Reference Range]: Height 165.1 cm (05/09/15 5:35 PM) Temperature Oral [96.4-99.1 99.5 DegF 97.4 DegF 97.9 DegF DegF] *HI* (05/28/15 8:02 AM) (05/28/15 3:52 AM) (05/28/15 12:07 PM) Blood Pressure [90-140/60-90 93/55 mmHg 101/54 mmHg 98/59 mmHg mmHg] (05/28/15 12:07 PM) (05/28/15 8:02 AM) (05/28/15 3:52 AM) Respiratory Rate [14-20 BRMIN] 18 BRMIN 17 BRMIN 18 BRMIN (05/28/15 12:07 PM) (05/28/15 8:02 AM) (05/28/15 3:52 AM) Peripheral Pulse Rate [60-100 73 bpm 52 bpm 54 bpm bpm] (05/28/15 12:07 PM) *LOW* *LOW* (05/28/15 8:02 AM) (05/28/15 3:52 AM) Weight 76.818 kg 81.818 kg (05/10/15 1:54 PM) (05/09/15 5:35 PM) Body Mass Index 30.02 m2 (05/09/15 5:35 PM) Problem List Condition Effective Dates Status Health Status Informant Acid reflux(Confirmed) Resolved Blind(Confirmed) Resolved Blood clot(Confirmed) Resolved Brain tumor(Confirmed) Resolved Breast cyst(Confirmed) Resolved Epilepsy(Confirmed) Resolved Hearing impaired(Confirmed) Resolved Hypothyroid(Confirmed) Resolved Ovarian cyst(Confirmed) Resolved Seizure(Confirmed) Resolved Allergies, Adverse Reactions, Alerts Substance Reaction Severity Status penicillins Active seafood Active Medications acetaminophen 500 mg, 1 tab, Route: PEG, Drug form: TAB, Q4H, Dosing Weight 76.818, kg, PRN Pain 1-3/Temp > 100.4 F, Start date: 05/26/15 15:38:00, Duration: 30 day, Stop date: 06/25/15 15:37:00 Start Date: 05/26/15 Stop Date: 05/28/15 Status: DiscontinuedAtivan 1 mg, 0.5 mL, Route: IVP, Drug form: INJ, ONCE, Dosing Weight 76.818, kg, PRN Anxiety, Start date: 05/11/15 17:33:00 Notes: (Same as: Ativan) Start Date: 05/11/15 Stop Date: 05/11/15 Status: CompletedAtivan 1 mg, 0.5 mL, Route: IV, Drug form: INJ, Q6H, Dosing Weight 76.818, kg, PRN Seizure, Start date: 05/16/15 1:13:00, Duration: 30 day, Stop date: 06/15/15 1: 12:00 Notes: (Same as: Ativan) Start Date: 05/16/15 Stop Date: 05/28/15 Status: DiscontinuedAtivan 2 mg, 1 mL, Route: IM, Drug form: INJ, ONCE, Dosing Weight 76.818, kg, Priority : NOW, Start date: 05/11/15 11:36:00, Stop date: 05/11/15 11:36:00 Notes: (Same as: Ativan) Start Date: 05/11/15 Stop Date: 05/11/15 Status: CompletedCalmoseptine topical ointment 1 appl, Route: TOP, PRN, Drug form: OINT, PRN Diaper Rash, Start date: 05/28/15 10:29:00, Duration: 30 day, Stop date: 06/27/15 10:28:00 Notes: (Same as: Calmoseptine) Start Date: 05/28/15 Stop Date: 05/28/15 Status: Discontinuedciprofloxacin 400 mg/200 mL intravenous solution 400 mg, 200 mL, Route: IVPB, Drug form: INJ, [id number], Dosing Weight 76.818, kg, Start date: 05/24/1610:00:00, Duration: 30 day, Stop date: 06/22/15 23:00:00 Notes: Do not refrigerate Start Date: 05/24/15 Stop Date: 05/26/15 Status: Discontinuedclindamycin 300 mg, 20 mL, Route: PEG, Drug form: PDR/REC, ABXQ6H, Dosing Weight 76.818, kg , Start date: 05/20/15 18:00:00, Duration: 30 day, Stop date: 06/19/15 12:00:00 Notes: (Same As: Cleocin) Start Date: 05/20/15 Stop Date: 05/23/15 Status: Discontinuedclindamycin 300 mg, 20 mL, Route: PEG, Drug form: PDR/REC, ABXQ6H, Dosing Weight 76.818, kg , Start date: 05/20/15 14:00:00, Duration: 30 day, Stop date: 06/19/15 8:00:00 Notes: (Same As: Cleocin) Start Date: 05/20/15 Stop Date: 05/20/15 Status: Deletedclindamycin + Sodium Chloride 0.9% IV 100 mL 600 mg, 4 mL, Route: IVPB, ABXQ8H, Dosing Weight 76.818, kg, Priority: NOW, Start date: 05/23/15 16:26:00, Duration: 30 day, Stop date: 06/22/15 8:26:00 Notes: (clindamycin 150 mg/1 ml (600 mg/4 ml VL) INJ) (Same As: Cleocin) Start Date: 05/23/15 Stop Date: 05/24/15 Status: DiscontinuedclonazePAM 0.5 mg, 1 tab, Route: PO, Drug form: TAB, BID, Dosing Weight 81.818, kg, Start date: 05/10/15 9:00:00, Duration: 30 day, Stop date: 06/08/15 17:00:00 Notes: (Same As: KlonoPIN) Start Date: 05/10/15 Stop Date: 05/28/15 Status: DiscontinuedclonazePAM 0.5 mg oral tablet 0.5 mg=1 tab, PO, BID, # 30 tab, 0 Refill(s) Start Date: 05/09/15 Stop Date: 05/28/15 Status: DiscontinuedclonazePAM 100 microgram/ml cpmd oral suspension 0.5 mg=1 tab, PEG, BID, 0 Refill(s) Start Date: 05/28/15 Status: OrderedColace 100 mg oral capsule 100 mg, 1 cap, Route: PO, Drug form: CAP, BID, Dosing Weight 76.818, kg, Priority: NOW, Start date: 05/18/15 10:46:00, Duration: 30 day, Stop date: 06/17 9:00:00 Notes: (Same as: Colace) (Do Not Crush) Start Date: 05/18/15 Stop Date: 05/19/15 Status: [id number] 1,000 mL 1,000 mL, Rate: 75 ml/hr, Infuse over: 13.3 hr, Route: IV, Dosing Weight 76.818 kg, Total Volume: 1,000, Start date: 05/23/15 13:42:00, Duration: 30 day, Stop date: 06/22/15 13:41:00 Start Date: 05/23/15 Stop Date: 05/26/15 Status: Voided With Resultsdexamethasone 8 mg, 2 tab, Route: PEG, Drug form: TAB, Q12H, Dosing Weight 76.818, kg, Start date: 05/26/15 21:00:00, Duration: 30 day, Stop date: 06/25/15 9:00:00 Start Date: 05/26/15 Stop Date: 05/28/15 Status: Discontinueddexamethasone 6 mg, 1 tab, Route: PEG, Drug form: TAB, Q6H, Dosing Weight 76.818, kg, Start date: 05/18/15 18:00:00, Duration: 30 day, Stop date: 06/17/15 12:00:00 Notes: Give with food. Start Date: 05/18/15 Stop Date: 05/21/15 Status: Discontinueddexamethasone 8 mg, 2 tab, Route: PEG, Drug form: TAB, BID, Dosing Weight 76.818, kg, Start date: 05/23/15 17:00:00, Duration: 30 day, Stop date: 06/22/15 9:00:00 Notes: Give with food.(Same As: Decadron) Start Date: 05/23/15 Stop Date: 05/23/15 Status: Canceleddexamethasone 8 mg, 2 mL, Route: IV, Drug form: INJ, Q12H, Dosing Weight 76.818, kg, Start date: 05/23/15 21:00:00, Duration: 30 day, Stop date: 06/22/15 9:00:00 Notes: Concentration: 4mg/ml Start Date: 05/23/15 Stop Date: 05/26/15 Status: Discontinueddexamethasone 10 mg, 1 mL, Route: IVP, Drug form: INJ, ONCE, Dosing Weight 76.818, kg, Priority: STAT, Start date:05/12/15 13:11:00, Stop date: 05/12/15 13:11:00 Notes: MEDICATION WASTE Product Size: 10 mgProduct Wasted: ___ mg Start Date: 05/12/15 Stop Date: 05/12/15 Status: Completeddexamethasone 6 mg, 1 tab, Route: PEG, Drug form: TAB, Q8H, Dosing Weight 76.818, kg, Start date: 05/21/15 20:00:00, Duration: 30 day, Stop date: 06/20/15 12:00:00 Notes: Give with food. Start Date: 05/21/15 Stop Date: 05/23/15 Status: Discontinueddexamethasone 8 mg, 0.8 mL, Route: IVP, Drug form: INJ, Q6H, Dosing Weight 76.818, kg, Start date: 05/12/15 18:00:00, Duration: 1 day, Stop date: 05/13/15 12:00:00 Notes: MEDICATION WASTE Product Size: 10 mgProduct Wasted: ___ mg Start Date: 05/12/15 Stop Date: 05/13/15 Status: Completeddexamethasone 6 mg, 0.6 mL, Route: IVP, Drug form: INJ, Q6H, Dosing Weight 76.818, kg, Start date: 05/13/15 18:00:00, Duration: 30 day, Stop date: 06/12/15 12:00:00 Notes: MEDICATION WASTE Product Size: 10 mgProduct Wasted: ___ mg Start Date: 05/13/15 Stop Date: 05/18/15 Status: Discontinueddexamethasone 4 mg oral tablet See Instructions, 8 mg PEG Q12 (end date 06/01) 8 mg QAM and 4 mg QHS for 1 week 4 mg PEG Q12 for 1week 4 mg PEG daily for 1 week then resume hydrocortisone 15 mg PEG QAM and 5 mg PEG QPM (home regimen), 0 Refill(s) Start Date: 05/28/15 Status: OrderedDextrose 5% with 0.9% NaCl IV 1,000 mL 1,000 mL, Rate: 75 ml/hr, Infuse over: 13.3 hr, Route: IV, Dosing Weight 76.818 kg, Total Volume: 1,000, Start date: 05/26/15 5:57:00, Duration: 30 day, Stop date: 06/25/15 5:56:00 Start Date: 05/26/15 Stop Date: 05/26/15 Status: Discontinueddocusate 100 mg, 10 mL, Route: PO, Drug form: LIQ, BID, Start date: 05/19/15 9:33:00, Duration: 30 day, Stop date: 06/18/15 9:30:00 Notes: (Same as: Colace) Start Date: 05/19/15 Stop Date: 05/28/15 Status: Discontinueddocusate 100 mg, 10 mL, Route: GT, Drug form: LIQ, BID, Dosing Weight 76.818, kg, Start date: 05/12/15 17:00:00, Duration: 30 day, Stop date: 06/11/15 9:00:00 Notes: (Same as: Colace) Start Date: 05/12/15 Stop Date: 05/18/15 Status: Voided With Resultsdocusate 100 mg, 10 mL, Route: PO, Drug form: LIQ, BID, Start date: 05/19/15 9:30:00, Duration: 30 day, Stop date: 06/17/15 17:00:00 Notes: (Same as: Colace) Start Date: 05/19/15 Stop Date: 05/19/15 Status: DeletedDulcolax Laxative 10 mg, 1 supp, Route: PA, Drug form: SUPP, Daily, Dosing Weight 76.818, kg, PRN Constipation, Start date: 05/18/15 10:46:00, Duration: 30 day, Stop date: 10:45:00 Notes: (Same As: Dulcolax, Bisco-Lax) Start Date: 05/18/15 Stop Date: 05/28/15 Status: DiscontinuedFlagyl 500 mg, 100 mL, Route: IVPB, Drug form: INJ, ABXQ8H, Dosing Weight 76.818, kg, Start date: 05/24/15 11:00:00, Duration: 30 day, Stop date: 06/23/15 3:00:00 Notes: (Same as: Flagyl) Avoid alcohol. Start Date: 05/24/15 Stop Date: 05/26/15 Status: Discontinuedgabapentin 300 mg, 6 mL, Route: PO, Drug form: SOLN, Q8H, Dosing Weight 76.818, kg, (CrCl > 60 ml/min), Start date: 05/26/15 16:00:00, Duration: 30 day, Stop date: 8:00:00 Notes: (Same as: Neurontin) Start Date: 05/26/15 Stop Date: 05/28/15 Status: Discontinuedgabapentin 250 mg/5 mL oral solution 300 mg=6 mL, PEG, Q8H, 0 Refill(s) Start Date: 05/28/15 Status: OrderedGastrografin 100 mL, Route: PEG, Drug Form: SOLN, Dosing Weight 76.818, kg, ONCE, Start date : 05/25/15 14:51:00, Stop date: 05/25/15 14:51:00 Notes: WASTE: F/P - Black; E - Municipal Trash Bin Start Date: 05/25/15 Stop Date: 05/25/15 Status: Completedheparin 5000 units/mL injectable solution 5,000 unit, 1 mL, Route: SUB-Q, Drug form: INJ, Q8H, Dosing Weight 81.818, kg, Start date: 05/10/15 8:00:00, Duration: 30 day, Stop date: 06/09/15 0:00:00 Notes: porcine heparin Start Date: 05/10/15 Stop Date: 05/28/15 Status: Discontinuedhydrocortisone 15 mg, 3 tab, Route: PO, Drug form: TAB, Daily, Dosing Weight 76.818, kg, Start date: 05/12/15 9:00:00, Duration: 30 day, Stop date: 06/10/15 9:00:00 Notes: (Same as: Cortef) Start Date: 05/12/15 Stop Date: 05/16/15 Status: Discontinuedhydrocortisone 5 mg, 1 tab, Route: PO, Drug form: TAB, Q24H, Dosing Weight 76.818, kg, Start date: 05/12/15 15:00:00, Duration: 30 day, Stop date: 06/10/15 15:00:00 Notes: (Same as: Cortef) Start Date: 05/12/15 Stop Date: 05/16/15 Status: Discontinuedhydrocortisone 5 mg, 1 tab, Route: PO, Drug form: TAB, ONCE, Dosing Weight 76.818, kg, Priority : STAT, Start date: 05/11/15 19:33:00, Stop date: 05/11/15 19:33:00 Notes: (Same as: Cortef) Start Date: 05/11/15 Stop Date: 05/11/15 Status: CompletedImodium A-D 2 mg, 10 mL, Route: PEG, Drug form: LIQ, ONCE, Dosing Weight 76.818, kg, Start date: 05/28/15 13:17:00, Stop date: 05/28/15 13:17:00 Notes: (Same as: Imodium) Start Date: 05/28/15 Stop Date: 05/28/15 Status: CompletedKeppra + Sodium Chloride 0.9% IV 100 mL 1,000 mg, Route: IVPB, Q12H, Dosing Weight 76.818, kg, Start date: 05/23/15 21: 00:00, Duration: 30 day, Stop date: 06/22/15 9:00:00 Notes: Same as KeppraMix with 100 mL NS, LR or D5W MEDICATION WASTE Product Size: 500 mgProduct Wasted: ___ mg Start Date: 05/23/15 Stop Date: 05/26/15 Status: DiscontinuedKeppra + Sodium Chloride 0.9% IV 100 mL 1,000 mg, Route: IV, ONCE, Dosing Weight 76.818, kg, Start date: 05/16/15 20:23: 00, Stop date: 05/16/15 20:23:00 Notes: Same as KeppraMix with 100 mL NS, LR or D5W MEDICATION WASTE Product Size: 500 mgProduct Wasted: ___ mg Start Date: 05/16/15 Stop Date: 05/17/15 Status: CompletedKeppra 100 mg/mL oral solution 1,000 mg=10 mL, PEG, Q12H, 0 Refill(s) Start Date: 05/28/15 Status: OrderedKeppra 100 mg/mL oral solution 1,000 mg, 10 mL, Route: PEG, Drug form: SOLN, Q12H, Dosing Weight 76.818, kg, Start date: 05/26/15 21:00:00, Duration: 30 day, Stop date: 06/25/15 9:00:00 Notes: Same as: Keppra Start Date: 05/26/15 Stop Date: 05/28/15 Status: DiscontinuedketOROLAC 30 mg, 1 mL, Route: IV, Drug form: INJ, Q6H, Dosing Weight 76.818, kg, PRN Pain Score 4-6, Start date: 05/15/15 21:55:00, Duration: 4 day, Stop date: 05/19/15 21:54:00 Notes: (Same as:Toradol) IV bolus must be given >15 seconds. Give IM administration slowly and deeply into the muscle.Not for use > 4 days MEDICATION WASTE Product Size: 30 mgProduct Wasted: ___ mg Start Date: 05/15/15 Stop Date: 05/18/15 Status: DiscontinuedlamoTRIgine 200 mg oral tablet See Instructions, 1 tab PO Daily, 1 Refill(s) Start Date: 05/09/15 Stop Date: 05/10/15 Status: DiscontinuedlamoTRIgine 200 mg oral tablet 400 mg=2 tab, PO, BID Start Date: 05/10/15 Stop Date: 05/28/15 Status: DiscontinuedlamoTRIgine 200 mg oral tablet 400 mg, 2 tab, Route: PO, Drug form: TAB, BID, Dosing Weight 81.818, kg, Start date: 05/10/15 9:00:00, Duration: 30 day, Stop date: 06/08/15 17:00:00 Notes: (Same as:Johanne) Start Date: 05/10/15 Stop Date: 05/28/15 Status: DiscontinuedlamoTRIgine 200 mg oral tablet Route: PO, Drug form: TAB, Daily, Dosing Weight 81.818, kg, Start date: 9:00:00, Duration: 30 day, Stop date: 06/08/15 9:00:00 Start Date: 05/10/15 Stop Date: 05/10/15 Status: CanceledlamoTRIgine 200 mg oral tablet 400 mg=2 tab, PEG, BID, 0 Refill(s) Start Date: 05/28/15 Status: OrderedlevETIRAcetam 1000 mg oral tablet 1,000 mg, 2 tab, Route: PO, Drug form: TAB, BID, Dosing Weight 81.818, kg, Start date: 05/10/15 9:00:00, Duration: 30 day, Stop date: 06/08/15 17:00:00 Notes: (Same as:Tiffany) Start Date: 05/10/15 Stop Date: 05/23/15 Status: DiscontinuedlevETIRAcetam 1000 mg oral tablet 1,000 mg=1 tab, PO, BID, # 30 tab, 0 Refill(s) Start Date: 05/09/15 Stop Date: 05/28/15 Status: Discontinuedlevothyroxine 125 microgram, 1 tab, Route: PO, Drug form: TAB, Daily, Dosing Weight 81.818, kg , Start date: 05/10/15 9:00:00, Duration: 30 day, Stop date: 06/08/15 9:00:00 Notes: Take 1 hour before or 2 hours after meal; Enteral feeds may interefere with the absorption ofthis medication. (Same as:Levothroid) Start Date: 05/10/15 Stop Date: 05/23/15 Status: Discontinuedlevothyroxine Route: IV, Drug form: INJ, Daily, Dosing Weight 76.818, kg, Start date: 9:00:00, Stop date:06/22/15 9:00:00 Notes: (Same as: Synthroid) Start Date: 05/24/15 Stop Date: 05/26/15 Status: Discontinuedlevothyroxine 125 microgram, 1 tab, Route: PEG, Drug form: TAB, Q630AM, Dosing Weight 76.818, kg, Start date: 05/27/15 6:30:00, Duration: 30 day, Stop date: 06/25/15 6:30:00 Start Date: 05/27/15 Stop Date: 05/28/15 Status: Discontinuedlevothyroxine 125 mcg (0.125 mg) oral tablet 125 microgram=1 tab, PEG, Daily, 0 Refill(s) Start Date: 05/28/15 Status: Orderedlevothyroxine 125 mcg (0.125 mg) oral tablet 125 microgram=1 tab, PO, Daily, # 30 tab, 0 Refill(s) Start Date: 05/09/15 Stop Date: 05/28/15 Status: Discontinuedmagnesium sulfate 2 gm, 50 mL, Route: IVPB, Drug form: INJ, ONCE, Dosing Weight 76.818, kg, Total dose=2 gm, Start date: 05/12/15 13:20:00, Duration: 1 doses or times, Stop date : 05/12/15 13:20:00 Start Date: 05/12/15 Stop Date: 05/12/15 Status: Completedmorphine Sulfate 1 mg, 0.5 mL, Route: IVP, Drug form: INJ, Q6H, Dosing Weight 76.818, kg, PRN Pain Score 7-10, Start date: 05/23/15 16:26:00, Duration: 30 day, Stop date: 16:25:00 Notes: (Same as:MORPhine Sulfate) Start Date: 05/23/15 Stop Date: 05/26/15 Status: DiscontinuedMultihance 529 mg/mL 8,125.44 mg, 15.36 mL, Route: IVP, Drug form: INJ, ONCALL, Dosing Weight 76.818 , kg, GFR > 39 ml/min, Priority: STAT, Start date: 05/11/15 19:58:00, Duration: 1 doses or times, Stop date: 05/12/15 0:00:00 Notes: Same as Multihance Start Date: 05/11/15 Stop Date: 05/12/15 Status: CompletedMultihance 529 mg/mL 8,125.44 mg, 15.36 mL, Route: IVP, Drug form: INJ, ONCALL, Dosing Weight 76.818 , kg, GFR > 39 ml/min, Priority: STAT, Start date: 05/16/15 22:17:00, Duration: 1 doses or times Notes: Same as Multihance Start Date: 05/16/15 Stop Date: 05/17/15 Status: CompletedNorco 5/325 oral tablet 1 tab, Route: PEG, Drug Form: TAB, Dosing Weight 76.818, kg, Q6H, PRN Other - See Comment, Start date: 05/18/15 10:45:00, Duration: 30 day, Stop date: 10:44:00, Pain Score 3-10 Notes: (Same as: [place] 325/5) Do not exceed 4gm/day of acetaminophen. Start Date: 05/18/15 Stop Date: 05/28/15 Status: Discontinuednormal saline 0.9% IV 1,000 mL 1,000 mL, Rate: 75 ml/hr, Infuse over: 13.3 hr, Route: IV, Dosing Weight 76.818 kg, Total Volume: 1,000, Start date: 05/11/15 16:24:00, Duration: 30 day, Stop date: 06/10/15 16:23:00 Start Date: 05/11/15 Stop Date: 05/14/15 Status: Voided With ResultsNS 1,000 mL 1,000 mL, Rate: 75 ml/hr, Infuse over: 13.3 hr, Route: IV, Dosing Weight 76.818 kg, Total Volume: 1,000, please start when NPO, Start date: 05/14/15 0:00:00, Duration: 30 day, Stop date: 06/12/15 23:59:00 Start Date: 05/14/15 Stop Date: 05/17/15 Status: DiscontinuedOmnipaque 350mg/ml 100 mL, Route: IVP, Drug Form: SOLN, Dosing Weight 76.818, kg, ONCALL, STAT, Start date: 05/23/15 11:16:00, Duration: 1 doses or times, Stop date: 05/23/15 23:59:00, Dose=2.2ml/kg, Max [id number] -- "To be infused by Radiology Staff ONLY" Notes: (Same as:Omnipaque 350). Start Date: 05/23/15 Stop Date: 05/28/15 Status: Discontinuedpantoprazole 40 mg oral granule 40 mg=1 pkt, PEG, Daily, 0 Refill(s) Start Date: 05/28/15 Status: OrderedPepcid 20 mg, 1 tab, Route: PO, Drug form: TAB, Q12H, Dosing Weight 76.818, kg, Priority: NOW, Start date: 05/13/15 7:31:00, Stop date: 06/11/15 21:00:00 Notes: (Same as: Pepcid) Start Date: 05/13/15 Stop Date: 05/23/15 Status: Discontinuedpneumococcal 23-valent vaccine 0.5 mL, Route: IM, Drug Form: INJ, Daily, Start date: 05/10/15 9:00:00, Duration : 1 doses or times, Stop date: 05/10/15 9:00:00 Notes: (Same as: Pneumovax 23) Refrigerate Start Date: 05/10/15 Stop Date: 05/10/15 Status: Completedpotassium chloride 40 mEq, 30 mL, Route: PEG, Drug form: LIQ, ONCE, Dosing Weight 76.818, kg, Start date: 05/28/15 7:31:00, Stop date: 05/28/15 7:31:00 Notes: (Same as: Potassium Chloride) Start Date: 05/28/15 Stop Date: 05/28/15 Status: Completedpotassium phosphate + Sodium Chloride 0.9% IV 250 mL 18 mmol, 6 mL, Route: IVPB, ONCE, Dosing Weight 76.818, kg, Start date: 7:58:00, Stop date:05/14/15 7:58:00 Notes: (Same as: K Phosphate.) 1 mMol phoshate has 1.47 mEq potassium Infuse over 4 hours Start Date: 05/14/15 Stop Date: 05/14/15 Status: CompletedProtonix 40 mg, Route: IV, Drug form: INJ, Q12H, Dosing Weight 76.818, kg, Start date: 21:00:00, Duration: 30 day, Stop date: 06/22/15 9:00:00, now Notes: (Same as: Protonix) Start Date: 05/23/15 Stop Date: 05/26/15 Status: DiscontinuedProtonix 40 mg, 1 pkt, Route: PEG, Drug form: GRAN/REC, Daily, Dosing Weight 76.818, kg, Start date: 169:00:00, Duration: 30 day, Stop date: 06/25/15 9:00:00 Start Date: 05/27/15 Stop Date: 05/28/15 Status: DiscontinuedSaline Flush 0.9% 10 ml, Route: IVP, Drug Form: INJ, Dosing Weight 81.818, kg, Q12H, Start date: 05/09/15 21:00:00, Duration: 30 day, Stop date: 06/08/15 9:00:00 Notes: (Same as: BD Posiflush) Start Date: 05/09/15 Stop Date: 05/28/15 Status: DiscontinuedSaline Flush 0.9% 10 ml, Route: IVP, Drug Form: INJ, Dosing Weight 81.818, kg, PRN, PRN Line Flush , Start date: 05/09/15 17:58:00, Duration: 30 day, Stop date: 06/08/15 17:57:00 Notes: (Same as: BD Posiflush) Start Date: 05/09/15 Stop Date: 05/28/15 Status: Discontinuedsenna 8.6 mg oral tablet 8.6 mg, 1 tab, Route: PEG, Drug Form: TAB, Dosing Weight 76.818, kg, Bedtime, NOW, Start date: 05/18/15 10:46:00, Duration: 30 day, Stop date: 06/16/15 21:00: 00 Notes: (Same as: Senokot) Start Date: 05/18/15 Stop Date: 05/28/15 Status: Discontinuedsertraline 100 mg, 1 tab, Route: PO, Drug form: TAB, Daily, Dosing Weight 81.818, kg, Start date: 05/10/15 9:00:00, Duration: 30 day, Stop date: 06/08/15 9:00:00 Notes: (Same as: Zoloft) Start Date: 05/10/15 Stop Date: 05/28/15 Status: Discontinuedsertraline 100 mg oral tablet 100 mg=1 tab, PEG, Daily, 0 Refill(s) Start Date: 05/28/15 Status: Orderedsertraline 100 mg oral tablet 100 mg=1 tab, PO, Daily, # 30 tab, 0 Refill(s) Start Date: 05/09/15 Stop Date: 05/28/15 Status: DiscontinuedTylenol Extra Strength 500 mg oral tablet 1,000 mg=2 tab, PO, Q4H, PRN Pain, # 120 tab, 0 Refill(s) Start Date: 05/09/15 Stop Date: 05/28/15 Status: DiscontinuedVersed 1 mg, 1 mL, Route: IV, Drug form: INJ, PRN, Dosing Weight 81.818, kg, PRN Other -See Comment, Start date: 05/10/15 2:00:00, Duration: 30 day, Stop date: 1:59:00 Notes: (Same as: Versed) MEDICATION WASTE Product Size: 2 mgProduct Wasted: _1__ mg Start Date: 05/10/15 Stop Date: 05/11/15 Status: DiscontinuedVersed 2 mg, 2 mL, Route: IVP, Drug form: INJ, ONCE, Dosing Weight 76.818, kg, PRN Anxiety, Start date: 05/14/15 10:57:00, PRN MRI Notes: (Same as: Versed) MEDICATION WASTE Product Size: 2 mgProduct Wasted: ___ mg Start Date: 05/14/15 Stop Date: 05/28/15 Status: DiscontinuedVersed 2 mg, Route: IM, ONCE, Dosing Weight 76.818, kg, Start date: 05/11/15 11:27:00, Stop date: 05/11/15 11:27:00 Start Date: 05/11/15 Stop Date: 05/11/15 Status: DiscontinuedVersed 2 mg, Route: IVP, ONCE, Dosing Weight 76.818, kg, PRN Anxiety, Start date: 05/14 14:56:00, Stop date: 06/13/15 14:55:00 Start Date: 05/14/15 Stop Date: 05/14/15 Status: DeletedVersed 1 mg, 0.5 mL, Route: IV, Drug form: SYRP, PRN, Dosing Weight 76.818, kg, PRN Anxiety, Start date: 05/11/15 8:01:00, Duration: 2 doses or times, Stop date: 0:00:00 Notes: (Same as: Versed) Start Date: 05/11/15 Stop Date: 05/12/15 Status: CompletedZofran 4 mg, 2 mL, Route: IV, Drug form: INJ, Q8H, Dosing Weight 76.818, kg, PRN Nausea , Start date: 05/26/15 15:37:00, Duration: 30 day, Stop date: 06/25/15 15:36:00 Notes: (Same as: Zofran) MEDICATION WASTE Product Size: 4 mgProduct Wasted: 0 mg Start Date: 05/26/15 Stop Date: 05/28/15 Status: Discontinued Results ELECTROLYTES Most recent to oldest 1 2 3 [Reference Range]: Sodium Lvl [135-145 mEq/L] 142 mEq/L 139 mEq/L 137 mEq/L (05/27/15 12:52 PM) (05/25/15 6:20 AM) (05/24/15 12:01 AM) Potassium Lvl [3.5-5.1 3.3 mEq/L 4.1 mEq/L 3.6 mEq/L mEq/L] *LOW* (05/25/15 6:20 AM) (05/24/15 12:01 AM) (05/27/15 12:52 PM) Chloride Lvl [95-109 mEq/L] 105 mEq/L 108 mEq/L 103 mEq/L (05/27/15 12:52 PM) (05/25/15 6:20 AM) (05/24/15 12:01 AM) CO2 [24-32 mEq/L] 27 mEq/L 24 mEq/L 22 mEq/L (05/27/15 12:52 PM) (05/25/15 6:20 AM) *LOW* (05/24/15 12:01 AM) AGAP [10.0-20.0 mEq/L] 13.3 mEq/L 11.1 mEq/L 15.6 mEq/L (05/27/15 12:52 PM) (05/25/15 6:20 AM) (05/24/15 12:01 AM) CHEM PANEL Most recent to oldest 1 2 3 [Reference Range]: Creatinine Lvl [0.50-1.40 0.80 mg/dL 0.71 mg/dL 0.87 mg/dL mg/dL] (05/27/15 12:52 PM) (05/25/15 6:20 AM) (05/24/15 12:01 AM) eGFR 93 mL/min/1.73m2 1 105 mL/min/1.73m2 2 83 mL/min/1.73m2 3 *NA* *NA* *NA* (05/27/15 12:52 PM) (05/25/15 6:20 AM) (05/24/15 12:01 AM) BUN [7-22 mg/dL] 14 mg/dL 16 mg/dL 22 mg/dL (05/27/15 12:52 PM) (05/25/15 6:20 AM) (05/24/15 12:01 AM) B/C Ratio [6-25] 23 25 33 (05/25/15 6:20 AM) (05/24/15 12:01 AM) *HI* (05/23/15 9:16 AM) Glucose Lvl [70-99 mg/dL] 93 mg/dL 111 mg/dL 140 mg/dL (05/27/15 12:52 PM) *HI* *HI* (05/25/15 6:20 AM) (05/24/15 12:01 AM) Total Protein [6.4-8.4 6.7 g/dL 7.1 g/dL 7.4 g/dL g/dL] (05/27/15 12:52 PM) (05/25/15 6:20 AM) (05/24/15 12:01 AM) Albumin Lvl [3.5-5.0 g/dL] 3.4 g/dL 3.3 g/dL 3.7 g/dL *LOW* *LOW* (05/24/15 12:01 AM) (05/27/15 12:52 PM) (05/25/15 6:20 AM) Globulin [2.0-4.0 g/dL] 3.3 g/dL 3.8 g/dL 3.7 g/dL (05/27/15 12:52 PM) (05/25/15 6:20 AM) (05/24/15 12:01 AM) A/G Ratio [0.7-1.6] 1.0 0.9 1.0 (05/27/15 12:52 PM) (05/25/15 6:20 AM) (05/24/15 12:01 AM) Calcium Lvl [8.5-10.5 8.6 mg/dL 8.2 mg/dL 9.1 mg/dL mg/dL] (05/27/15 12:52 PM) *LOW* (05/24/15 12:01 AM) (05/25/15 6:20 AM) Phosphorus [2.5-4.5 mg/dL] 1.7 mg/dL 2.1 mg/dL 3.2 mg/dL *LOW* *LOW* (05/13/15 3:21 AM) (05/15/15 4:27 AM) (05/14/15 3:51 AM) Magnesium Lvl [1.8-2.4 2.4 mg/dL 2.2 mg/dL 2.2 mg/dL mg/dL] (05/15/15 4:27 AM) (05/14/15 3:51 AM) (05/13/15 3:21 AM) ALT [0-65 unit/L] 112 unit/L 187 unit/L 266 unit/L *HI* *HI* *HI* (05/27/15 12:52 PM) (05/25/15 6:20 AM) (05/24/15 12:01 AM) AST [0-37 unit/L] 31 unit/L 50 unit/L 96 unit/L (05/27/15 12:52 PM) *HI* *HI* (05/25/15 6:20 AM) (05/24/15 12:01 AM) Alk Phos [39-136 unit/L] 190 unit/L 238 unit/L 289 unit/L *HI* *HI* *HI* (05/27/15 12:52 PM) (05/25/15 6:20 AM) (05/24/15 12:01 AM) Bili Total [0.2-1.3 mg/dL] 0.3 mg/dL 0.4 mg/dL 0.6 mg/dL (05/27/15 12:52 PM) (05/25/15 6:20 AM) (05/24/15 12:01 AM) Bili Direct [0.0-0.3 mg/dL] 0.1 mg/dL (05/27/15 12:52 PM) Bili Indirect [0.0-1.0 0.2 mg/dL mg/dL] (05/27/15 12:52 PM) Lactic Acid Lvl [0.5-2.2 0.9 mMol/L mMol/L] (05/09/15 8:28 PM) 1Result Comment: The eGFR is calculated [...] eGFR should be multiplied by the estimated BMI.2Result Comment: The eGFR is calculated using the CKD-EPI formula. In most young, healthy individualsthe eGFR will be >90 mL/ min/1.73m2. The [...] eGFR should be multiplied by the estimated BMI.3Result Comment: The eGFR is calculated using the CKD-EPI formula. In most young, healthy individualsthe eGFR will be >90 mL/ min/1.73m2. The [...] eGFR should be multiplied by the estimated BMI.PARATHYROID PROFILE Most recent to oldest [Reference Range]: 1 2 3 Ca Ion WB [1.05-1.25 mMol/L] 1.11 mMol/L 0.98 mMol/L (05/11/15 6:14 PM) *LOW* (05/09/15 8:28 PM) Ca Norm WB [1.05-1.25 mMol/L] 1.08 mMol/L 1.01 mMol/L (05/11/15 6:14 PM) *LOW* (05/09/15 8:28 PM) DRUG SCREEN Most recent to oldest [Reference Range]: 1 2 3 U Amph Scr [Negative] Negative *NA* (05/11/15 6:25 PM) U Amanda Scr [Negative] Negative *NA* (05/11/15 6:25 PM) U Benzodia Scr [Negative] Positive *ABN* (05/11/15 6:25 PM) U Cocaine Scr [Negative] Negative *NA* (05/11/15 6:25 PM) U Opiate Scr [Negative] Negative *NA* (05/11/15 6:25 PM) U Phencyc Scr [Negative] Negative *NA* (05/11/15 6:25 PM) U Cannab Scr [Negative] Negative *NA* (05/11/15 6:25 PM) UDS Note See Note (05/11/15 6:25 PM) TOXICOLOGY Most recent to oldest [Reference Range]: 1 2 3 Lamotrigine Lvl [4.0-18.0 microgram/mL] 38.4 microgram/mL 1 34.2 microgram/ mL 2, 3 *CRIT* *CRIT* (05/10/15 8:37 AM) (05/09/15 8:28 PM) Keppa Lvl 41 microgram/mL 4 12 microgram/mL 5 *NA* *NA* (05/11/15 6:14 PM) (05/09/15 8:28 PM) 1Result Comment: Test Performed at: [facility], [address] [place] [phone] Som Purvis MD, [id number] Comment: Test Performed at: [facility], [address] [place] [phone] Som Purvis MD, FCAP Critical Result(s) called to JERRICA AKHTAR at _05/15/2015 17:38 by_CYTJONA. Read back OK.3Result Comment: Test Performed at: [facility], [address] [place] [phone] Som Purvis MD, [id number] Comment: Therapeutic Levels: Drug Dosage Trough (mcg/mL) Peak (mcg/mL) 500 mg BID 3.1 - 10.0 10.0 - 25.0 1000 mg BID 4.9 - 37.1 30.0 - 40.0 1500 mg BID 7.0 - 34.0 36.1 - 70.0 Toxic level not established Test Performed at: [facility], [address] [place] [phone] Som Purvis MD, [id number] Comment: Therapeutic Levels: Drug Dosage Trough (mcg/mL) Peak (mcg/mL) 500 mg BID 3.1 - 10.0 10.0 - 25.0 1000 mg BID 4.9 - 37.1 30.0 - 40.0 1500 mg BID 7.0 - 34.0 36.1 - 70.0 Toxic level not established Test Performed at: [facility], [id number] [place] [phone] Som Purvis MD, [email or web address] Most recent to oldest [Reference Range]: 1 2 3 Cortisol Free <0.03 mcg/dl 1 0.07 mcg/dl 2 *LOW* *NA* (05/13/15 6:58 AM) (05/11/15 6:14 PM) 1Result Comment: Adult Reference Ranges for Cortisol, Free, LC/MS/MS: 8:00 - 10:00 AM 0.07-0.93 mcg/dL 4:00 - 6:00 PM 0.04-0.45 mcg/dL 10:00 - 11:00 PM 0.04-0.35 mcg/dL Test Performed at: [facility] [address] [phone] Jarad Moran MD, [id number] Comment: Adult Reference Ranges for Cortisol, Free, LC/MS/MS: 8:00 - 10:00 AM 0.07-0.93 mcg/dL 4:00 - 6:00 PM 0.04-0.45 mcg/dL 10:00 - 11:00 PM 0.04-0.35 mcg/dL Test Performed at: [facility] [address] [phone] Jarad Moran MD, PhDURINE CHEM Most recent to oldest [Reference Range]: 1 2 3 U Preg [Negative] Negative (05/11/15 6:25 PM) URINE AND STOOL Most recent to oldest [Reference Range]: 1 2 3 UA Turbidity [Clear] Clear (05/11/15 6:25 PM) UA Color [Yellow] Yellow *NA* (05/11/15 6:25 PM) UA pH [5.0-8.0] 6.0 (05/11/15 6:25 PM) UA Spec Grav [<=1.030] 1.019 (05/11/15 6:25 PM) UA Glucose [Negative mg/dL] Negative mg/dL *NA* (05/11/15 6:25 PM) UA Blood [Negative] Negative (05/11/15 6:25 PM) UA Ketones [Negative mg/dL] 60 mg/dL *ABN* (05/11/15 6:25 PM) UA Protein [Negative mg/dL] 20 mg/dL *ABN* (05/11/15 6:25 PM) UA Urobilinogen [0.1-1.0 mg/dL] 2.0 mg/dL *HI* (05/11/15 6:25 PM) UA Bili [Negative] Negative *NA* (05/11/15 6:25 PM) UA Leuk Est [Negative] Negative (05/11/15 6:25 PM) UA Nitrite [Negative] Negative (05/11/15 6:25 PM) UA WBC [0-5 /HPF] 1 /HPF (05/11/15 6:25 PM) UA RBC [0-2 /HPF] <1 /HPF (05/11/15 6:25 PM) UA Sq Epi None Seen *NA* (05/11/15 6:25 PM) UA Mucus [None Seen /LPF] Few /LPF *NA* (05/11/15 6:25 PM) HEMATOLOGY Most recent to oldest 1 2 3 [Reference Range]: WBC [3.7-10.4 K/CMM] 8.5 K/CMM 13.9 K/CMM 11.3 K/CMM (05/25/15 6:20 AM) *HI* *HI* (05/24/15 12:01 AM) (05/23/15 3:17 PM) RBC [4.20-5.40 M/CMM] 4.66 M/CMM 5.06 M/CMM 5.00 M/CMM (05/25/15 6:20 AM) (05/24/15 12:01 AM) (05/23/15 3:17 PM) Hgb [12.0-16.0 g/dL] 13.1 g/dL 13.4 g/dL 13.7 g/dL (05/25/15 6:20 AM) (05/24/15 12:01 AM) (05/23/15 3:17 PM) Hct [36.0-48.0 %] 39.4 % 41.6 % 41.3 % (05/25/15 6:20 AM) (05/24/15 12:01 AM) (05/23/15 3:17 PM) MCV [80.0-98.0 fL] 84.5 fL 82.1 fL 82.5 fL (05/25/15 6:20 AM) (05/24/15 12:01 AM) (05/23/15 3:17 PM) MCH [27.0-31.0 pg] 28.1 pg 26.5 pg 27.4 pg (05/25/15 6:20 AM) *LOW* (05/23/15 3:17 PM) (05/24/15 12:01 AM) MCHC [32.0-36.0 g/dL] 33.2 g/dL 32.2 g/dL 33.2 g/dL (05/25/15 6:20 AM) (05/24/15 12:01 AM) (05/23/15 3:17 PM) RDW [11.5-14.5 %] 15.9 % 15.6 % 15.5 % *HI* *HI* *HI* (05/25/15 6:20 AM) (05/24/15 12:01 AM) (05/23/15 3:17 PM) Platelet [133-450 K/CMM] 328 K/CMM 387 K/CMM 384 K/CMM (05/25/15 6:20 AM) (05/24/15 12:01 AM) (05/23/15 3:17 PM) MPV [7.4-10.4 fL] 7.8 fL 8.1 fL 7.7 fL (05/25/15 6:20 AM) (05/24/15 12:01 AM) (05/23/15 3:17 PM) Segs [45.0-75.0 %] 81.4 % 81.5 % 67.0 % *HI* *HI* (05/23/15 3:17 PM) (05/25/15 6:20 AM) (05/24/15 12:01 AM) Bands [0.0-11.0 %] 2.0 % (05/23/15 3:17 PM) Lymphocytes [20.0-40.0 %] 14.9 % 12.4 % 22.0 % *LOW* *LOW* (05/23/15 3:17 PM) (05/25/15 6:20 AM) (05/24/15 12:01 AM) Atypical Lymphs [<=0.0 %] 0.0 % (05/23/15 3:17 PM) Monocytes [2.0-12.0 %] 3.4 % 5.2 % 5.0 % (05/25/15 6:20 AM) (05/24/15 12:01 AM) (05/23/15 3:17 PM) Eosinophils [0.0-4.0 %] 0.1 % 0.4 % 0.3 % (05/25/15 6:20 AM) (05/24/15 12:01 AM) (05/21/15 4:35 AM) Basophils [0.0-1.0 %] 0.2 % 0.5 % 0.5 % (05/25/15 6:20 AM) (05/24/15 12:01 AM) (05/21/15 4:35 AM) Metamyelocytes [0.0-1.0 %] 1.0 % (05/23/15 3:17 PM) Myelocytes [<=0.0 %] 3.0 % *HI* (05/23/15 3:17 PM) Segs-Bands # [1.5-8.1 K/CMM] 6.9 K/CMM 11.3 K/CMM 7.8 K/CMM (05/25/15 6:20 AM) *HI* (05/23/15 3:17 PM) (05/24/15 12:01 AM) Lymphocytes # [1.0-5.5 1.3 K/CMM 1.7 K/CMM 2.5 K/CMM K/CMM] (05/25/15 6:20 AM) (05/24/15 12:01 AM) (05/23/15 3:17 PM) Monocytes # [0.0-0.8 K/CMM] 0.3 K/CMM 0.7 K/CMM 0.6 K/CMM (05/25/15 6:20 AM) (05/24/15 12:01 AM) (05/23/15 3:17 PM) Eosinophils # [0.0-0.5 0.1 K/CMM 0.2 K/CMM 0.2 K/CMM K/CMM] (05/12/15 4:03 AM) (05/11/15 3:17 AM) (05/10/15 7:52 AM) Basophils # [0.0-0.2 K/CMM] 0.1 K/CMM 0.1 K/CMM 0.1 K/CMM (05/24/15 12:01 AM) (05/21/15 4:35 AM) (05/11/15 3:17 AM) Tot Cell Ct 100 *NA* (05/23/15 3:17 PM) RBC Morph Normal Normal (05/23/15 3:17 PM) (05/15/15 4:27 AM) Anisocyte [None Seen] 1+ *ABN* (05/13/15 3:21 AM) Polychrom slight *NA* (05/13/15 3:21 AM) Hypochrom [None Seen] 1+ (05/13/15 3:21 AM) Plt Morph Normal Normal (05/23/15 3:17 PM) (05/15/15 4:27 AM) PT [12.0-14.7 seconds] 15.9 seconds 17.0 seconds *HI* *HI* (05/15/15 4:27 AM) (05/13/15 3:21 AM) INR [0.85-1.17] 1.24 1.35 *HI* *HI* (05/15/15 4:27 AM) (05/13/15 3:21 AM) PTT [22.9-35.8 seconds] 53.3 seconds *HI* (05/13/15 3:21 AM) Immunizations Vaccine Date Refusal Reason pneumococcal 23-valent vaccine 05/11/15 Procedures Procedure Date Related Diagnosis Body Site Biopsy of breast Creation of PUBLIC IMPROVEMENT INSPECTOR shunt Excision of ovary Social History Social History Type Response Alcohol Never Smoking Status Never smoker; Ready to change: No; Concerns about tobacco use in household: No; Exposure to Tobacco Smoke None; Cigarette Smoking Last 365 Days No; Reg Smoking Cessation Counseling No Assessment and Plan Extracted from: Title: Clinical Document Author: Neda Cabral DO Date: 05/28/15 PATIENT NAME: Simón Sarmiento ATTENDING PHYSICIAN: Neda Cabral DO DATE OF ADMISSION: 05/09/2015 DATE OF DISCHARGE: 05/28/2015 DISCHARGE DIAGNOSIS: intracranial meningiomatosis panhypopituitarism 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 hearing loss. CARDIOVASCULAR: S1 S2 PULMONARY: clear to ascultation bilaterally ABDOMEN: soft, nontender. positive bowel sounds. PEG with stabilizer and minimal leakage EXTREMITIES: no cyanosis, clubbing or edema NEURO: motor intact HOSPITAL COURSE: 39 y/o female with intracranial meningiomatosis, panhypopituitarism and seizure d/o admitted with declining mental and functional status. Of note, patient's mother notes intrau terine exposure to small pox? Imaging noted diffuse progression of meningiomas. Evaluated by NS; no surgical intervention possible. Evaluated by neuro-oncology; recommend referral to radiation oncology. Evaluated by PT/OT/ST. Failed MBSS so GI placed PEG on 05/16. Hospitalization complicated by leakage around the PEG site, IV contrast extravasation in LUE and pain over the dorsum of left foot. Evaluate d by GI who recommended general surgery evaluation. Evaluated by general surgery; gastrografin study negative for leakage. PEG stabilizer placed and leakage decreased - will take time for the tract to h eal per general surgery. Plain film of left foot negative - pain appears neuropathic. Patient tolerating TF at goal and ambulating with PT. Patient stable for discharge to SNF. DISCHARGE MEDICATIONS: Please see HMR FOLLOW-UP APPOINTMENTS: Radiation Oncology - Dr Serra - please call [phone] to schedule appointment Endocrine - follow up as scheduled Neurology - follow up as scheduled DISCHARGE INSTRUCTIONS: Take medications as prescribed. OK to remove PEG after July 10 DEXAMETHASONE TAPER: 8 mg PEG Q12 (end date 06/01) 8 mg QAM and 4 mg QHS for 1 week 4 mg PEG Q12 for 1 week 4 mg PEG daily for 1 week then resume hydrocortisone 15 mg PEG QAM and 5 mg PEG QPM (home regimen) TUBE FEEDS: per SNF RD ACTIVITY: as tolerated If you experience any pain, nausea, vomiting, bleeding, swelling, signs of infection, shortness of breath or increase in temperature, you are instructed to contact your physician or return to the emergency department. DISPOSITION: Discharged to [facility] CONDITION ON DISCHARGE: Stable Time spent on discharge: 40 minutes spent on patient/family education, medication review and discharge paperwork Extracted from: Title: Hospitalist Progress Note Author: Neda Cabral DO Date: Assessment/Plan 1.Leaking PEG tube + concern for infection spoke with general surgery - will instruct RN how to properly dress the PEG stabilizer. no concern at this point as long as skin is protected 2.Left foot pain unclear etiology since appears neuropathic. continue gabapentin. counseled to ask for analgesics if needed 3.Meningiomatosis continue steroids (tapering schedule per endocrine note dated 05/17). refer to radiation oncology at discharge 4.Hypopituitarism continue steroids and LT4 5.Seizure disorder continue lamictal and keppra 6.Oropharyngeal dysphagia will try advancing TF to goal of 75 cc/hr PPX: heparin SC [facility]; please page [phone] with questions Extracted from: Title: EGS Consult Note Author: Josue Paredes DDS Date: 05/25/15 EGS Consult NOte Physician Office Assistant: Diego Blakely Referring Physician: Charu Weber MD Date of Consultation: 05/25/2015 Time of Consultation: 1100 Consult Regarding: PEG site erythema Chief Complaint: PEG site erythema History of Present Illness: This is a 39 year old woman with a past medical history of meningiomatosis s/p resection 1999 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 The GI service placed a PEG on 05/17/15. On 05/20/15 the patient developed mild erythema around the PEG site and was started on po clindamycin. The redness improved on 05/21/15 and on 05/23/15 she was found to have thin brownish discharge from around the PEG. On 05/24/15 the discharge resolved but the patient was tender to palpation on her abdomen. A CT of the abdomen/pelvis showed mild soft tissue stranding around the PEG tube that extended to the ventral abdominal wall and intraabdominal soft tissue with some concern for leak (per the radiology report). Also on 05/24/15 the patient was switched to ciprofloxacin and flagyl. The GI service was consulted for concern for infection adn recommended to consult EGS. Past Medical History: Meningiomatosis s/p resection of menegiomas Blindness Epilepsy Hypopituitarism Past Surgical History: Resection of cranial meningiomas Ooopherectomy Allergies: PEN Seafood Medications: Medications (20) Active Scheduled Meds (13): 05/24/15 ciprofloxacin (ciprofloxacin 400 mg/200 mL intravenous solution) 400 mg IVPB [id number] 200 ml/hr 05/10/15 clonazePAM 0.5 mg PO BID 05/23/15 dexamethasone 8 mg IV Q12H 05/19/15 docusate 100 mg PO BID 05/16/15 heparin (heparin 5000 units/mL injectable solution) 5,000 unit SUB-Q Q8H 05/10/15 lamoTRIgine (lamoTRIgine 200 mg oral tablet) 400 mg PO BID 05/23/15 levETIRAcetam + Sodium Chloride 0.9% IV 100 mL (Keppra + Sodium Chloride 0.9% IV 100 mL) 1,000 mg IVPB Q12H 400 ml/hr 05/24/15 levothyroxine IV Daily 05/24/15 metroNIDAZOLE (Flagyl) 500 mg IVPB ABXQ8H 200 ml/hr 05/23/15 pantoprazole (Protonix) 40 mg IV Q12H 05/18/15 senna (senna 8.6 mg oral tablet) 8.6 mg PEG Bedtime 05/10/15 sertraline 100 mg PO Daily 05/09/15 sodium chloride (Saline Flush 0.9%) 10 ml IVP Q12H Unscheduled Meds (1): 05/23/15 iohexol (Omnipaque 350mg/ml) 100 mL IVP ONCALL PRN Meds (5): 05/16/15 LORazepam (Ativan) 1 mg IV Q6H 05/18/15 acetaminophen-hydrocodone ([place] 5/325 oral tablet) 1 tab PEG Q6H 05/18/15 bisacodyl (Dulcolax Laxative) 10 mg PA Daily 05/23/15 morphine Sulfate 1 mg IVP Q6H 05/09/15 sodium chloride (Saline Flush 0.9%) 10 ml IVP PRN One Time Meds: None Continuous Infusions (1): 05/23/15 Dextrose 5% with 0.9% NaCl IV 1,000 mL (D5NS 1,000 mL) 1,000 mL 75 ml/ hr Family History: None relevant Social History: Lives with mother Review of Systems Constitutional symptoms: Denies fevers, chills Cardiovascular: Denies chest pain Respiratory: Deniesdifficulty breathing Gastrointestinal: Denies abdominal pain Skin: Reports some erythema around PEG site Physical Exam Vital Signs: Vitals Tmp(F) Pulse BP RR SpO2 FIO2 05/25 12:50 97.3 71 96/63 18 97 --- 05/25 10:06 97 53 102/65 18 100 --- 05/25 03:25 98.0 58 98/65 16 99 --- 05/25 00:40 96.6 59 90/61 16 97 --- 05/24 20:27 97.6 63 99/65 16 97 --- 24 Hr Tmax: 98.0F (36.67c) at 05/25 03:25 Vital Signs are the last 5 in the past 48 hours. General appearance: Thin, joint malformation, lying in bed Skin: Erythema present around PEG site HEENT: Exopthalmos, thin, temporal wasting, nystagmus Heart: regular rate and rhythm Lungs: clear to auscultation bilaterally Abdomen: mild tenderness to palpation around PEG site only, no discharge at PEG site, no rebound tendeness, no distension Pertinent Laboratory Evaluation 36hr Labs 05/25 1248 Glucose POC 89 05/25 0620 Sodium Lvl 139 Potassium Lvl 4.1 Chloride Lvl 108 CO2 24 AGAP 11.1 Glucose Lvl 111 H Creatinine Lvl 0.71 BUN 16 B/C Ratio 23 Total Protein 7.1 Albumin Lvl 3.3 L Globulin 3.8 A/G Ratio 0.9 Calcium Lvl 8.2 L ALT 187 H AST 50 H Alk Phos 238 H Bili Total 0.4 eGFR 105 WBC 8.5 RBC 4.66 Hgb 13.1 Hct 39.4 MCV 84.5 MCH 28.1 MCHC 33.2 RDW 15.9 H Platelet 328 MPV 7.8 Segs 81.4 H Monocytes 3.4 Lymphocytes 14.9 L Eosinophils 0.1 Basophils 0.2 Segs-Bands # 6.9 Lymphocytes # 1.3 Monocytes # 0.3 Diagnostic Imaging IMPRESSION: 1. PEG tube balloon lies within the gastric body; however there is mild soft tissue stranding along the PEG tube catheter extending to the ventral abdominal wall, as well as within the intra-abdominal s oft tissues concerning for leakage of tube feeds/gastric contents. 2. Cholelithiasis is present, without secondary signs to suggest acute cholecystitis. Assessment: 39 year old woman with pmh as above now 8 days s/p PEG tube placement by the GI service with some erythema wround the PEG site. Plan: 1. No indication for surgical intervention at this time 2. If clinical scenarios changes, may consiuder tube study with contrast to rule out leak Josue Paredes, DDS [id number] eATTENDING ATTESTATION: I have seen and examined the patient with the above provider (resident/fellow) . Futhermore, I concur with their findings and plan as noted above. 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 Patient typically follows with Dr. Lu but due to some s cheduling conflict was seen in clinic today by Dr. Gold and sent for hospitalization. Patient's sister reports that patient has had some difficulty walking due to left hip/leg pain thought to be sciatica. She was still able to ambulate independently until 1 month ago. Since that time, she has become wheelchair bound. Sister reports she is able to roll around and crawl on the floor but cannot wa lk. Her speech has also worsened. She is typically very easy to understand however now they say her speech is mumbled and nearly incomprehensible. She has been sleeping more than usual. Sister also noti sridevi her right arm is now curling up. She spends most of her time in the position in bed. Sister also reports some episodes of confusion over the past month. REVIEW OF SYSTEMS: GEN: no fever, chills, weight loss, fatigue EYES: no blurred vision, double vision CARDIO: no chest pain, palpitations PULM: no shortness of breath, cough GI: no nausea, vomiting, diarrhea, no abd pain : no frequency, dysuria, hematuria NEURO: see HPI SKIN: no rash or lesion MSK: no pain, swelling, redness, heat in muscles, no limited ROM, weakness, or atrophy, no cramps LYMPH/IMMUNO: No lymph node enlargement/tenderness, no heat/cold intolerance PAST MEDICAL HISTORY: Reportedly born with defects, mom was exposed to small pox while with Simón and they account defects to this. 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 PAST SURGICAL HISTORY: oopharectomy multiple meningioma resection, last in 1999 FAMILY MEDICAL HISTORY: no members with genetic defects, cognitive delays, other neurological disorders SOCIAL HISTORY: Lives with mother at home. MEDICATIONS: keppra 1000mg BID clonazepam 0.5mg BID lamotrigine 200mg BID sertraline 100mg daily levothyroxine 0.125mg daily ALLERGIES: PCN seafood PHYSICAL EXAM: Vitals Tmp(F) Tmp(C) Ttype BP MAP Pulse RR SpO2 FIO2 ETCO2 (no data in last 48 hours) 24 Hr Tmax: No Data Available Vital Signs are the last 5 in the past 48 hours. 24 Hr Tmin: No Data Available Weights are the last 5 in 60 days, plus initial. Date Wt(kg) Wt(lb) Ht(cm) Ht(in) Method BMI BSA 05/09 (initial) 81.82 180.00 Estimated 30.0 1.94 GENERAL: Awake HEENT: - dysmorphic facies NEURO: Mental status: Awake. Does not answer questions or follow commands. Speech: minimal heard but only mumbles Cranial nerves: Pupils equal, round, and reactive. R___3___mm L___3__mm. L eye exotropic, injected. Blind. Eye movements full. Face symmetric at rest and with activation. Motor: Normal bulk. Increased tone RUE more than RLE. Difficulty with strength exam but appears antigravity throughout. Sensation: Intact to light touch throughout Coordination: Not able to complete Reflexes: R Biceps 2+, Triceps 2+, Brachioradialis 2+, Patella 2+, Ankle 2+. L Biceps 2+, Triceps 2+, Brachioradialis 2+, Patella 2+, Ankle 2 +. Toes downgoing bilaterally. 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 Considerations include new meningioma/tumor growth, complex partial status. PLAN: MRI brain w/wo contrast - may need anesthesia but will try to obtain without. Routine EEG. Labs - CBC, BMP, UA, lamotrigine level, keppra level. Home meds. PT/OT. Patient discussed with Dr. Clemons. Lore Matos PGY4 Pediatric Neurology NEUROLOGY ATTENDING I personally discussed this patient s H&P with my Residents at the patient s bedside. I personally performed the estevez portions of the examination independently. I agree with each component abisaie n in the resident documentation related to the examination. 39 yo HF w/meningiomatosis s/p resection, epilepsy, blindness, hypopituitarism , and reduced hearing. Mother had small pox when w/patient. I was called about her yesterday from clinic b/o no gray segun speaking or walking, both of which she was doing 1 mo ago. (1) SEIZURES: on lamictal and keppra. Lamictal and keppra levels ordered. (2) HYPOPITUITARISM: thyroid replacement. Not needing cortisol recently. Na+ 133 today. Check cortisol level. (3) APHASIA: MRI, EEG, r/o infection, check lytes (4) GAIT CHANGE: MRI, EEG, r/o infection. She has been on steroids and has hip pain-> check for hip fracture. DIAGNOSES APHASIA GAIT CHANGE BLINDNESS HYPOPITUITARISM EPILEPSY CPT 32424
--- OUTSIDE RECORDS SUMMARY | 2018-10-02 03:47 | XMS REPORT | Summary of Care ---
:1975 Author Organization [facility] Address [address] [address]- Care Team Providers Name Role Phone Alfie Garcia Primary Care Physician Unavailable Encounter HQ Encntr_stanley(FIN) [id number] Date(s): 07/26/15 - 07/26/15 [facility] [address] [facility], [address] [phone] Discharge Disposition: Home Attending Physician: David Serra MD Vital Signs No data available for this section Problem List Condition Effective Dates Status Health Status Informant Acid reflux(Confirmed) Resolved Blind(Confirmed) Resolved Blood clot(Confirmed) Resolved Brain tumor(Confirmed) Resolved Breast cyst(Confirmed) Resolved Epilepsy(Confirmed) Resolved Hearing impaired(Confirmed) Resolved Hypothyroid(Confirmed) Resolved Ovarian cyst(Confirmed) Resolved Seizure(Confirmed) Resolved Allergies, Adverse Reactions, Alerts Substance Reaction Severity Status iodine topical Active penicillins Active seafood Active Medications No data available for this section Results No data available for this section Immunizations Vaccine Date Refusal Reason pneumococcal 23-valent vaccine 05/11/15 Procedures Procedure Date Related Diagnosis Body Site Biopsy of breast 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
[2018-10-02 05:10] LABS: Absolute Lymphocytes (CBC) 2.9 K/uL (0.7-4.9); Absolute Monocytes 0.3 K/uL (0.1-1.3); Absolute Neutrophil 2.1 K/uL (1.8-8.0); Basophils % 0.8 % (0-1.3); Eosinophils % 1.7 % (0-4.4); Hematocrit 38.1 % (36.0-45.0); MPV 7.5 fL (7.6-11.3); Monocytes % 5.1 % (3.3-12.3); RBC Red Blood Cell Count 4.48 M/uL (3.86-4.86)
[2018-10-02 05:48] LABS: ALT/SGPT 13 U/L (12-78); AST/SGOT 14 U/L (15-37); Alkaline Phosphatase 55 U/L (45-117); BUN Blood Urea Nitrogen 8 mg/dL (7-18); Bicarbonate 29 mmol/L (21-32); Bilirubin Total 0.5 mg/dL (0.2-1.0); Glucose Level 86 mg/dL (74-106); Magnesium 2.3 mg/dL (1.8-2.4); NT PRO-BNP 147 pg/mL (<125); Potassium 3.5 mmol/L (3.5-5.1); Protein, Total 7.2 g/dL (6.4-8.2); Sodium Level 139 mmol/L (136-145); Troponin (Emerg Dept Use Only) < 0.02 ng/mL (0.0-0.045)
--- NOTE | 2018-10-02 06:14 | ER ---
Nurse's Notes [facility] Name: Grace Sarmiento Age: 42 yrs Sex: Female : 1975 Arrival Date: 10/02/2018 Time: 03:44 Bed 20 Private MD: Mani Chavez Diagnosis: Palpitations Presentation: 10/02 03:55 Presenting complaint: "She woke up us saying she was having chest pain this morning jd3 about 30 min ago.". Transition of care: patient was not received from another setting of care. Onset of symptoms was October 02, 2018. Risk Assessment: Do you want to hurt yourself or someone else? Patient reports no desire to harm self or others. Initial Sepsis Screen: Does the patient meet any 2 criteria? No. Patient's initial sepsis screen is negative. Does the patient have a suspected source of infection? No. Patient's initial sepsis screen is negative. Care prior to arrival: None. 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 N/A - Irregular menses jd3 Historical: - Allergies: 03:57 Iodine; jd3 03:57 PENICILLINS; jd3 - Home Meds: 03:57 clonazepam 0.5 mg Oral tab 1 tab 2 times per day [Active]; Lamictal 200 mg Oral tab 2 jd3 tabs 2 times per day [Active]; levothyroxine 125 mcg tab 1 tab once daily [Active]; sertraline 100 mg Oral tab 1 tab once daily [Active]; 05:06 levetiracetam 1,000 mg Oral tab 1 tab every 12 hours [Active]; lamotrigine 150 mg oral jd3 tab 2 tabs once daily [Active]; hydrocortisone 5 mg Oral tab 1 tab once daily [Active]; - PMHx: 03:57 BLIND; Hypothyroidism; Seizures; HARD OF HEARING; 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 - Social history:: Smoking status: Patient/guardian denies using tobacco. - Ebola Screening: : Patient negative for fever greater than or equal to 101.5 degrees Fahrenheit, and additional compatible Ebola Virus Disease symptoms. Screenin:05 Abuse screen: Denies threats or abuse. Nutritional screening: No deficits noted. jd3 Tuberculosis screening: No symptoms or risk factors identified. Fall Risk Ambulatory Aid- None/Bed Rest/Nurse Assist (0 pts). Gait- Normal/Bed Rest/Wheelchair (0 pts) Mental Status- Oriented to own ability (0 pts). Total Sheppard Fall Scale indicates No Risk (0-24 pts). Assessment: 03:58 General: Appears in no apparent distress. uncomfortable, Behavior is cooperative, jd3 appropriate for age, anxious. Pain: Complains of pain in chest Quality of pain is described as pressure, stinging. Neuro: Level of Consciousness is awake, alert, obeys commands, Oriented to person, place, time, situation. Cardiovascular: Heart tones S1 S2 present Capillary refill < 3 seconds Patient's skin is warm and dry. Respiratory: Airway is patent Respiratory effort is even, unlabored, Respiratory pattern is regular, symmetrical, Breath sounds are clear bilaterally. GI: No signs and/or symptoms were reported involving the gastrointestinal system. : No signs and/or symptoms were reported regarding the genitourinary system. EENT: Reports blind due to brain tumors and brain surgery. pt also reports being hard of hearing.. Derm: Skin is intact, Skin is dry, Skin is normal, Skin temperature is warm. Musculoskeletal: Circulation, motion, and sensation intact. Range of motion: intact in all extremities. 04:59 Reassessment: Patient appears in no apparent distress at this time. Patient and/or jd3 family updated on plan of care and expected duration. Pain level reassessed. Patient is alert, oriented x 3, equal unlabored respirations, skin warm/dry/pink. 06:06 Reassessment: Patient appears in no apparent distress at this time. Patient and/or jd3 family updated on plan of care and expected duration. Pain level reassessed. Patient is alert, oriented x 3, equal unlabored respirations, skin warm/dry/pink. 06:27 Reassessment: Patient appears in no apparent distress at this time. Patient and/or jd3 family updated on plan of care and expected duration. Pain level reassessed. Patient is alert, oriented x 3, equal unlabored respirations, skin warm/dry/pink. Patient denies pain at this time. Patient states feeling better. Vital Signs: 03:57 BP 110 / 78; Pulse 72; Resp 17 S; Temp 97.7(O); Pulse Ox 99% on R/A; Weight 68.04 kg jd3 (R); Height 5 ft. 7 in. (170.18 cm) (R); Pain 5/10; 04:58 BP 112 / 70; Pulse 64; Resp 15 S; Pulse Ox 100% on R/A; jd3 06:05 BP 111 / 72; Pulse 63; Resp 19 S; Pulse Ox 100% on R/A; jd3 03:57 Body Mass Index 23.49 (68.04 kg, 170.18 cm) jd3 ED Course: 03:44 Patient arrived in ED. es 03:44 Mani Chavez DO is Private Physician. es 03:44 Christian Mendoza MD is Attending Physician. ps1 03:55 Oral Reyes, EDITH is Primary Nurse. jd3 03:56 Triage completed. jd3 03:58 Arm band placed on. EKG completed in triage. Results shown to MD. jd3 04:05 Patient has correct armband on for positive identification. Bed in low position. Call jd3 light in reach. Side rails up X2. Adult w/ patient. 04:24 X-ray completed. Portable x-ray completed in exam room. Patient tolerated procedure kw well. 04:26 XRAY Chest (1 view) In Process Unspecified. EDMS 04:45 Missed attempt(s): 22 gauge in right antecubital area. Bleeding controlled, band aid jd3 applied, catheter tip intact. 04:48 Missed attempt(s): 22 gauge in left antecubital area. Bleeding controlled, band aid jd3 applied, catheter tip intact. 04:53 Missed attempt(s): 22 gauge in right antecubital area. Bleeding controlled, band aid bb applied, catheter tip intact. 04:55 Inserted saline lock: 20 gauge in right upper arm, using aseptic technique. bb 06:13 Mani Chavez DO is Referral Physician. ps1 06:13 Jaya Escalona MD is Referral Physician. ps1 06:27 No provider procedures requiring assistance completed. IV discontinued, intact, jd3 bleeding controlled, No redness/swelling at site. Pressure dressing applied. Administered Medications: No medications were administered Outcome: 06:13 Discharge ordered by . ps1 06:27 Discharged to home via wheelchair, with family. jd3 06:27 Condition: stable 06:27 Discharge instructions given to patient, family, Instructed on discharge instructions, follow up and referral plans. Demonstrated understanding of instructions, follow-up care. 06:30 Patient left the ED. [email or web address] Signatures: Dispatcher [employer] Carmita Rojo Brenda, RN RN bb Whitley, Kimberlee kw Davies, Jonathon, RN RN jd3 Singer, Phillip, MD MD ps1 Corrections: (The following items were deleted from the chart) 05:07 03:57 Home Meds: levetiracetam 1,000 mg Oral tab 1 tab every 12 hours; lucio jd3
--- NOTE | 2018-10-02 06:14 | EDPHYS ---
Physician Documentation [facility] Name: Grace Sarmiento Age: 42 yrs Sex: Female : 1975 Arrival Date: 10/02/2018 Time: 03:44 Bed 20 Private MD: Mani Chavez ED Physician Christian Mendoza HPI: 10/02 03:54 This 42 yrs old Female presents to ER via Unassigned with complaints of ps1 Palpitations. 03:54 Pt states that over the last hour she has had intermittent palpitations. Pt denies ps1 chest pain but attests to pressure. NO cardiac history previously. Does not attest to palpitations now during history. Patient has a history of brain masses s/p surgery. Pt is slow to respond to history taking so it is limited 2/2 [facility]. . 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 N/A - Irregular menses jd3 Historical: - Allergies: 03:57 Iodine; jd3 03:57 PENICILLINS; jd3 - Home Meds: 03:57 clonazepam 0.5 mg Oral tab 1 tab 2 times per day [Active]; Lamictal 200 mg Oral tab 2 jd3 tabs 2 times per day [Active]; levothyroxine 125 mcg tab 1 tab once daily [Active]; sertraline 100 mg Oral tab 1 tab once daily [Active]; 05:06 levetiracetam 1,000 mg Oral tab 1 tab every 12 hours [Active]; lamotrigine 150 mg oral jd3 tab 2 tabs once daily [Active]; hydrocortisone 5 mg Oral tab 1 tab once daily [Active]; - PMHx: 03:57 BLIND; Hypothyroidism; Seizures; HARD OF HEARING; 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 - Social history:: Smoking status: Patient/guardian denies using tobacco. - Ebola Screening: : Patient negative for fever greater than or equal to 101.5 degrees Fahrenheit, and additional compatible Ebola Virus Disease symptoms. ROS: 03:54 Constitutional: Negative for fever, chills, and weight loss. ps1 03:54 ENT: Negative for injury, pain, and discharge, Neck: Negative for injury, pain, and swelling, Respiratory: Negative for shortness of breath, cough, wheezing, and pleuritic chest pain, Abdomen/GI: Negative for abdominal pain, nausea, vomiting, diarrhea, and constipation, Back: Negative for injury and pain, MS/Extremity: Negative for injury and deformity, Skin: Negative for injury, rash, and discoloration, Neuro: Negative for headache, weakness, numbness, tingling, and seizure. 03:54 Eyes: Positive for blindness, old. 03:54 Cardiovascular: Positive for palpitations. Exam: 03:54 ENT: Nares patent. No nasal discharge, no septal abnormalities noted. Tympanic ps1 membranes are normal and external auditory canals are clear. Oropharynx with no redness, swelling, or masses, exudates, or evidence of obstruction, uvula midline. Mucous membranes moist. Chest/axilla: Normal chest wall appearance and motion. Nontender with no deformity. No lesions are appreciated. Cardiovascular: Regular rate and rhythm. No gallops, murmurs, or rubs. Normal PMI, no JVD. No pulse deficits. Respiratory: Lungs have equal breath sounds bilaterally, clear to auscultation and percussion. No rales, rhonchi or wheezes noted. No increased work of breathing, no retractions or nasal flaring. Abdomen/GI: Soft, non-tender, with normal bowel sounds. No distension or tympany. No guarding or rebound. No evidence of tenderness throughout. MS/ Extremity: Pulses equal, no cyanosis. Neurovascular intact. Full, normal range of motion. Neuro: Awake and alert, GCS 15, oriented to person, place, time, and situation. Cranial nerves II-XII grossly intact. Sensory grossly intact. Psych: Awake, alert, with orientation to person, place and time. Behavior, mood, and affect are within normal limits. 03:54 Constitutional: The patient appears in no acute distress. 03:54 Head/face: dysmorphic facies. . 03:54 Eyes: proptosis, chronic 2/2 surgery. Vital Signs: 03:57 BP 110 / 78; Pulse 72; Resp 17 S; Temp 97.7(O); Pulse Ox 99% on R/A; Weight 68.04 kg jd3 (R); Height 5 ft. 7 in. (170.18 cm) (R); Pain 5/10; 04:58 BP 112 / 70; Pulse 64; Resp 15 S; Pulse Ox 100% on R/A; jd3 06:05 BP 111 / 72; Pulse 63; Resp 19 S; Pulse Ox 100% on R/A; jd3 03:57 Body Mass Index 23.49 (68.04 kg, 170.18 cm) jd3 MDM: 03:53 Patient medically screened. ps1 10/02 03:54 Order name: CBC with Diff; Complete Time: 05:22 ps1 10/02 03:54 Order name: Magnesium; Complete Time: 06:12 ps1 10/02 03:54 Order name: NT PRO-BNP; Complete Time: 06:12 ps1 10/02 03:54 Order name: Troponin (emerg Dept Use Only); Complete Time: 06:12 ps1 10/02 03:54 Order name: XRAY Chest (1 view) ps1 10/02 03:54 Order name: CMP; Complete Time: 06:12 ps1 10/02 03:54 Order name: EKG; Complete Time: 03:55 ps1 10/02 03:54 Order name: Cardiac monitoring; Complete Time: 04:29 ps1 10/02 03:54 Order name: EKG - Nurse/Tech; Complete Time: 04:29 ps1 10/02 03:54 Order name: IV Saline Lock; Complete Time: 05:06 ps1 10/02 03:54 Order name: Labs collected and sent; Complete Time: 04:30 ps1 10/02 03:54 Order name: O2 Per Protocol; Complete Time: 04:30 ps1 10/02 03:54 Order name: O2 Sat Monitoring; Complete Time: 04:30 ps1 EC:12 Rate is 67 beats/min. Rhythm is regular. QRS [place] is Normal. [place] interval is normal. QRS ps1 interval is normal. QT interval is normal. No Q waves. T waves are Flattened in leads V5, V6. No ST changes noted. Clinical impression: NSR w/ Non-specific ST/T Changes and artifact present. Interpreted by me. Administered Medications: No medications were administered Disposition: 10/02/18 06:13 Discharged to Home. Impression: Palpitations. - Condition is Stable. - Discharge Instructions: Palpitations. - Medication Reconciliation Form, Thank You Letter, Antibiotic Education, Prescription Opioid Use form. - Follow up: Mani Chavez DO; When: 48 Hours; Reason: Recheck today's complaints, Continuance of care, Re-evaluation by your physician. Follow up: Jaya Escalona MD; When: 48 Hours; Reason: Further diagnostic work-up, Recheck today's complaints. - Problem is new. - Symptoms have improved. Signatures: Dispatcher [employer] Oral Oconnell, RN RN jd3 Christian Mendoza MD MD ps1 Corrections: (The following items were deleted from the chart) 05:07 03:57 Home Meds: levetiracetam 1,000 mg Oral tab 1 tab every 12 hours; jd3 jd3 06:30 06:13 10/02/2018 06:13 Discharged to Home. Impression: Palpitations. Condition is jd3 Stable. Forms are Medication Reconciliation Form, Thank You Letter, Antibiotic Education, Prescription Opioid Use. Follow up: Mani Chavez; When: 48 Hours; Reason: Recheck today's complaints, Continuance of care, Re-evaluation by your physician. Follow up: Jaya Escalona; When: 48 Hours; Reason: Further diagnostic work-up, Recheck today's complaints. Problem is new. Symptoms have improved. ps1
[2018-10-02 06:52] VITALS: TEMP 97.7
[2018-10-02 06:53] VITALS: O2SAT 100
[2018-10-02 06:55] VITALS: BP 111/72
--- NOTE | 2018-10-02 08:32 | EKG ---
Test Date: 2018-10-02 Test Time: 04:02:22 Hat Braider: RAYNA MEASUREMENT RESULTS: Intervals: Rate: 67 MI: 170 QRSD: 60 QT: 380 QTc: 401 Bandon: P: 93 MI: 170 QRS: 44 T: 57 INTERPRETIVE STATEMENTS: Normal sinus rhythm Nonspecific ST and T wave abnormality Abnormal ECG Compared to ECG 07/05/2015 04:47:49 ST (T wave) deviation now present T-wave abnormality no longer present Prolonged QT interval no longer present Electronically Signed On 10-02-18 08:31:29 CDT by Jaya Escalona
--- NOTE | 2018-10-02 11:28 | RAD REPORT ---
EXAM DESCRIPTION: RAD - Chest Single View - 10/02/2018 4:24 am CLINICAL HISTORY: CHEST PAIN Chest pain. COMPARISON: CHEST SINGLE VIEW dated 03/05/2015; CHEST SINGLE VIEW dated 08/22/2013; CHEST SINGLE VIEW dated 01/28/2010 FINDINGS: Portable technique limits examination quality. The lungs are grossly clear. The heart is normal in size. No displaced fractures.Right-sided shunt tu sindhu traverses the right chest. IMPRESSION: No acute intrathoracic process suspected.
== END 2018-10-02 06:30 | disposition home or self-care (01) ==
LOC: ER 03:39
DX: R00.2 Palpitations (principal); E03.9 Hypothyroidism, unspecified; Z88.0 Allergy status to penicillin; Z88.8 Allergy status to other drugs, medicaments and biological substances
CPT/HCPCS: 36415; 71045; 80053; 83735; 83880; 84484; 85025; 93005; 99283

== ENCOUNTER 2019-03-21 18:14 | Observation (INO) | payer OTHER ==
--- OUTSIDE RECORDS SUMMARY | 2019-03-21 18:15 | XMS REPORT ---
:1975 Author Organization [facility] Address [address] [place] [address] Care Team Providers Name Role Phone Unavailable Unavailable Unavailable Problems This patient has no known problems. Allergies, Adverse Reactions, Alerts This patient has no known allergies or adverse reactions. Medications This patient has no known medications.
--- OUTSIDE RECORDS SUMMARY | 2019-03-21 18:16 | XMS REPORT | Summary of Care ---
:1975 Author Organization [facility] - Health Address [address] [place] [address] Care Team Providers Name Role Phone Mani Chavez MD Primary Care Provider Encounter Details Date Type Department Care Team Description 01/17/2019 Orders Only [facility] Doctor Unassigned, No [address] [place] [address] [address] [id number] Allergies Active Allergy Reactions Severity Noted Date Comments Iodine Swelling 08/16/2018 She developed swelling of the throat and SOB Penicillin G Swelling 08/16/2018 Swelling of the throat difficulty breathing documented as of this encounter (statuses as of 01/17/2019) Medications Medication Sig Dispensed Refills Start Date End Date Status clonazePAM 0.5 mg Take 5 mg by 4 08/08/2018 Active tablet mouth daily. levETIRAcetam 500 mg Take 500 mg by 10 07/09/2018 Active tablet mouth 2 (two) times daily. 2 tablets 2 times a day hydrocortisone 5 mg Take 5 mg by 3 07/26/2018 Active tablet mouth 2 (two) times daily. 3 tablets in the AM 1 tablet PM lamoTRIgine 200 mg Take 200 mg by 11 08/06/2018 Active tablet mouth 2 (two) times daily. 2 tablets BID levothyroxine 125 mcg Take 125 mcg by 06/08/2018 Active tablet mouth every morning. SERTraline 100 mg Take 100 mg by 08/06/2018 Active tablet mouth daily. om-3/dha/epa/D3/B12/FA Take by mouth. 0 Active /B-6/phy (ANIMI-3 WITH VITAMIN D ORAL) ergocalciferol, Take 1 capsule 12 capsule 0 10/11/2018 10/18/2019 Active vitamin d2, 50,000 by mouth once unit every month. capsuleIndications: Osteopenia determined by x-ray ibandronate 150 mg Take 1 tablet 12 tablet 0 10/11/2018 09/18/2019 Active tabletIndications: by mouth once Osteopenia of multiple every month for sites 12 doses. gabapentin 300 mg Take 1 capsule 60 capsule 2 12/21/2018 03/21/2019 Active capsuleIndications: by mouth 2 Spinal stenosis of (two) times lumbar region at daily for 90 multiple levels days. documented as of this encounter (statuses as of 01/17/2019) Active Problems Not on filedocumented as of this encounter (statuses as of 01/17/2019) Social History Tobacco Use Types Packs/Day Years Used Date Never Smoker Smokeless Tobacco: Never Used Sex Assigned at Date Recorded Not on file Job Start Date Occupation Industry Not on file Not on file Not on file Travel History Travel Start Travel End No recent travel history available. documented as of this encounter Last Filed Vital Signs Not on filedocumented in this encounter Plan of Treatment Date Type Specialty Care Team Description 01/17/2019 Office Visit Orthopedic Surgery Vitaliy Magallon FNP Arrived [address] [place] [address] [phone] Health Maintenance Due Date Last Done Comments DTaP,Tdap,and Td Vaccines (1 - 1992 Tdap) PAP SMEAR 1994 MAMMOGRAM 2013 INFLUENZA VACCINE (#1) 2019 PNEUMOCOCCAL 0-64 YEARS COMBINED Aged Out No longer eligible based on SERIES patient's age to complete this topic documented as of this encounter Procedures Procedure Name Priority Date/Time Associated Diagnosis Comments NOTICE OF BILLING Routine 01/17/2019 4:13 PM CDT PRACTICES FOR MEDICARE PATIENTS documented in this encounter Results Not on filedocumented in this encounter Insurance Payer Benefit Plan / Subscriber ID Effective Phone Address Type Group Dates [facility] [id number] 2017-Prese Medicare Adv HEALTHCARE - HEALTHCARE DUAL nt HMO MANAGED COMPLETE HMO MEDICARE [facility] xxxxxxxxx 2018-Prese Medicaid HEALTHCARE COMM PLUS nt PLAN - MANAGED MEDICAID documented as of this encounter
--- OUTSIDE RECORDS SUMMARY | 2019-03-21 18:16 | XMS REPORT | Summary of Care ---
:1975 Author Organization [facility] Address [address] [place] [address] Care Team Providers Name Role Phone Mani Chavez MD Primary Care Provider Reason for Visit Reason Comments Follow-up Encounter Details Date Type Department Care Team Description 12/21/2018 Case Management [facility] Orthopaedic [place], Follow-up Surgery- [place] [facility] [address] [place] [id number] [place] [id number] Allergies Active Allergy Reactions Severity Noted Date Comments Iodine Swelling 08/16/2018 She developed swelling of the throat and SOB Penicillin G Swelling 08/16/2018 Swelling of the throat difficulty breathing documented as of this encounter (statuses as of 12/21/2018) Medications Medication Sig Dispensed Refills Start Date [...] levothyroxine 125 mcg Take 125 mcg by 3 06/08/2018 Active tablet mouth every morning. SERTraline 100 mg Take 100 mg by 10 08/06/2018 Active tablet mouth daily. om-3/dha/epa/D3/B12/FA Take [...] as of this encounter (statuses as of 12/21/2018) Active Problems Not on filedocumented as of this encounter (statuses as of 12/21/2018) Social History Tobacco Use Types Packs/Day Years [...] Description 01/17/2019 Office Visit Orthopedic Surgery Vitaliy Magallon, MARTHA [address] [place] [address] [phone] Health Maintenance Due Date Last Done Comments DTaP,Tdap,and Td Vaccines (1 - 1992 Tdap) PAP SMEAR 1994 MAMMOGRAM 2013 INFLUENZA VACCINE (#1) 2019 PNEUMOCOCCAL 0-64 YEARS COMBINED Aged Out No longer eligible based on SERIES patient's age to complete this topic documented as of this encounter Results Not on filedocumented in this encounter Visit Diagnoses Diagnosis Spinal stenosis of lumbar region at multiple levels - Primary Spinal stenosis, lumbar region, without neurogenic claudication documented in this encounter Insurance Payer Benefit Plan / Subscriber ID Effective Phone Address Type Group Dates [facility] [id number] 2017-Prese Medicare Adv HEALTHCARE - HEALTHCARE DUAL nt HMO MANAGED COMPLETE HMO MEDICARE [facility] STAR xxxxxxxxx 2018-Prese Medicaid HEALTHCARE COMM PLUS nt PLAN - MANAGED MEDICAID documented as of this encounter
--- OUTSIDE RECORDS SUMMARY | 2019-03-21 18:16 | XMS REPORT | Summary of Care ---
:1975 Author Organization [facility] Address [address] [place] [id number] Care Team Providers Name Role Phone Mani Chavez MD Primary Care Provider Reason for Visit Reason Comments Back Pain Encounter Details Date Type Department Care Team Description 01/17/2019 Office Visit [facility] Sherita Osteopenia of multiple sites (Primary Dx); Orthopaedic Surgery- , Shibi, MAINTENANCE APPRENTICE Spinal stenosis of lumbar region at multiple levels; [address] Narrowing of intervertebral disc space [address] [place] [phone] Allergies Active Allergy Reactions Severity Noted Date Comments Acetaminophen Unknown - See comments 01/17/2019 Iodine Swelling 08/16/2018 She developed swelling of the throat and SOB Penicillin G Swelling 08/16/2018 Swelling of the throat difficulty breathing documented as of this encounter (statuses as of 01/18/2019) Medications Medication Sig Dispensed Refills Start Date End Date Status clonazePAM 0.5 mg Take 5 mg by 4 08/08/2018 Active tablet mouth daily. levETIRAcetam 500 mg Take 500 mg 10 07/09/2018 Active tablet by mouth 2 (two) times daily. 2 tablets 2 times a day hydrocortisone 5 mg Take 5 mg by 3 07/26/2018 Active tablet mouth 2 (two) times daily. 3 tablets in the AM 1 tablet PM lamoTRIgine 200 mg Take 200 mg 11 08/06/2018 Active tablet by mouth 2 (two) times daily. 2 tablets BID levothyroxine 125 Take 125 mcg 3 06/08/2018 Active mcg tablet by mouth every morning. SERTraline 100 mg Take 100 mg 10 08/06/2018 Active tablet by mouth daily. om-3/dha/epa/D3/B12/ Take by 0 Active FA/B-6/phy (ANIMI-3 mouth. WITH VITAMIN D ORAL) ergocalciferol, Take 1 12 capsule 0 10/11/2018 Active vitamin d2, 50,000 capsule by 0 unit mouth once capsuleIndications: every month. Osteopenia determined by x-ray gabapentin 300 mg Take 1 60 capsule 2 12/21/2018 Active capsuleIndications: capsule by 9 Spinal stenosis of mouth 2 (two) lumbar region at times daily multiple levels for 90 days. ibandronate 150 mg Take 1 tablet 12 tablet 0 01/17/2019 Active tabletIndications: by mouth once 0 Osteopenia of every month multiple sites for 12 doses. ibandronate 150 mg Take 1 tablet 12 tablet 0 10/11/2018 Discontinued tabletIndications: by mouth once 9 Osteopenia of every month multiple sites for 12 doses. documented as of this encounter (statuses as of 01/18/2019) Active Problems Not on filedocumented as of this encounter (statuses as of 01/18/2019) Social History Tobacco Use Types Packs/Day Years Used Date Never Smoker Smokeless Tobacco: Never Used Sex Assigned at Date Recorded Not on file Job Start Date Occupation Industry Not on file Not on file Not on file Travel History Travel Start Travel End No recent travel history available. documented as of this encounter Last Filed Vital Signs Vital Sign Reading Time Taken Comments Blood Pressure 100/62 01/17/2019 4:28 PM CDT Pulse 64 01/17/2019 4:28 PM CDT Temperature - - Respiratory Rate 14 01/17/2019 4:28 PM CDT Oxygen Saturation 95% 01/17/2019 4:28 PM CDT Inhaled Oxygen Concentration - - Weight 67.6 kg (149 lb) 01/17/2019 4:28 PM CDT Height 167.6 cm (5' 6") 01/17/2019 4:28 PM CDT Body Mass Index 24.05 01/17/2019 4:28 PM CDT documented in this encounter Progress Notes Vitaliy Magallon, MARTHA - 01/17/2019 4:15 PM CDT Orthopedic Surgery - Spine 01/17/2019 16:36 Chief complaint: LOW BACK PAIN History of present illness: Grace Leiva is a 42 year old female with pmh of Hypothyroidism,GERD and seizure disordercoming in today with a chief complaint of chronic Low back pain.She has left leg pain associated with the back pain for the past 2 years.She has h/o seizures and was was taking assisted [place] which caused brain edema.She came in the wheel chair and 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 The patient had physical therapy for their back. Further, the patient never had epidural steroid injections performed. There has been no history of loss of bowel or bladder control. Interval Hx 10/11/2018:Grace Leiva is a 42 year old female for the follow up with the DEXA scan which shows rt hip with T score-2.4 with severe osteopenia which is increased risk for fracture.She has constant left leg pain, does not want to do surgical management wants to try conservative measures. Interval Hx 01/17/2019 :Grace Leiva is a 43 year old female for the follow up with the low back pain,she did not do SONJA and does not want to do surgery.Recently she has memory problems and advised to consult the Neurology. No past medical history on file. No past surgical history on file. Current Outpatient Medications on File Prior to Visit Medication Sig Dispense Refill ergocalciferol, vitamin d2, 50,000 unit capsule Take 1 capsule by mouth once every month. 12 capsule 0 om-3/dha/epa/D3/B12/FA/B-6/phy (ANIMI-3 WITH VITAMIN D ORAL) Take by mouth. gabapentin 300 mg capsule Take 1 capsule by mouth 2 (two) times daily for 90 days. 60 capsule 2 ibandronate 150 mg tablet Take 1 tablet by mouth once every month for 12 doses. 12 tablet 0 clonazePAM 0.5 mg tablet Take 5 mg by mouth daily. 4 hydrocortisone 5 mg tablet Take 5 mg by mouth 2 (two) times daily. 3 tablets in the AM 1 tablet PM 3 lamoTRIgine 200 mg tablet Take 200 mg by mouth 2 (two) times daily. 2 tablets BID 11 levETIRAcetam 500 mg tablet Take 500 mg by mouth 2 (two) times daily. 2 tablets 2 times a day 10 levothyroxine 125 mcg tablet Take 125 mcg by mouth every morning. 3 SERTraline 100 mg tablet Take 100 mg by mouth daily. 10 No current facility-administered medications on file prior to visit. Allergies Allergen Reactions Acetaminophen Unknown - See comments Iodine Swelling She developed swelling of the throat and SOB Penicillin G Swelling Swelling of the throat difficulty breathing Social History Tobacco Use Smoking status: Never Smoker Smokeless tobacco: Never Used Substance Use Topics Alcohol use: Not on file Drug use: Not on file Family History: No history of bleeding disorders Review of Systems: No fevers, chills or weight loss, chest pain, shortness of breath, pleurisy, runny nose, sore throat, abdominal pain, constipation, diarrhea, bowel or bladder incontinence, dysuria, joint pain, stiffness, trouble walking, bleeding disorders or thyroid problems Physical Examination: BP 100/62 | Pulse 64 | Resp 14 | Ht 66" (167.6 cm) | Wt 67.6 kg (149 lb) | SpO2 95% | BMI 24.05 kg/m General: AAOx3, pleasant and cooperative, normal gait, HEENT: Normal cephalic atraumatic, pupils equal reactive to light bilaterally, oropharynx mucus membranes moist. Respiratory: No use of accessory respiratory muscles Cardiovascular: 2+ dorsalis pedis pulses Abdomen: Soft, non-tender distended Skin: no rashes, no discoloration Back: Extends with mild discomfort tenderness to palpation in the patient's paraspinal muscles in lumbar spine SI tenderness to palpation in the patient's left side. SI joints negative. Straight leg raise is negative Neuro: Reflexes are symmetric at the knees and ankles and are symmetric. 5/5 motor in all muscle groups L2-S1 bilaterally Sensation is intact in all nerve distributions Clonus is absent. Lumbar spine exam: Positive tenderness over the L4/5 and L5/S1 interspinous spaces. Positive tenderness over bilateral L4/5 L5/S1 facet joints and paraspinal muscles left worse than right. Positive tenderness over bilateral SI joint and bilateral greater trochanters left worse than right Motor power: Right EHL/EDL is 4+ out of 5 DTR: Bilateral knee reflexes are 1+, bilateral ankle reflexes are diminished Sensation: Minimal sensory loss to light touch and right L5/S1 distribution SLR: Positive bilaterally right worse than left in sitting position. MRI SPINE: Spinal anatomy is distorted due to levoscoliosis in the AP view and lower lumbar kyphosis in the lateral view. No acute compression fracture or aggressive lesions of the bones detected. Spinal canal appears to be of adequate size and normal conus/cauda equina are found at the level of T12. Visualized retroperitoneum is unremarkable for aortic aneurysm or enlarged lymph nodes or hydronephrosis. Incidental note made of gallstones, 2 gallstones visualized, 7 mm and 14 mm size in the body portion of gallbladder. Additional small stone also noted near the neck region. Common bile duct is not dilated. T12-L1: Unremarkable. L1-L2: Disc degeneration with bulging disc and mild facet arthritis with mild thecal sac compression. No significant foraminal narrowing. Shallow Schmorl's node is seen in the lower plate of L1 secondary to remote trauma. L2-L3: Shallow Schmorl's nodes in the upper plate of the L3 due to remote trauma. No disc degeneration. Bulging of the disc noted into the right lateral recess near the neural foramen. Bilateral facet arthritis noted. No significant foraminal narrowing. L3-L4: Prominent Schmorl's node in the upper plate of L4 due to remote trauma. Disc degeneration is slightly narrowed disc space, osteophytes along the ventral vertebral margins, minimal anterior listhesis of L4 over L5, bulging disc and thickened ligaments from facet arthritis causing spinal stenosis with moderate to severe thecal sac compression. Neural foramina are elongated but not significantly narrowed. L4-L5: Moderate degenerative disc disease, increasing in severity from right to left due to scoliosis with narrowing of the disc up to 70-80%, prominent osteophytes along the ventral vertebral margins, bulging of the discs throughout the spinal canal with additional encroachment by thickened ligaments from facet arthritis causing mild spinal stenosis with thecal sac compression. Foraminal encroachment noted on both sides, slightly more on the left side by prominent bulging disc with left nerve compression suspected in the paravertebral space region. L5-S1: Moderate to severe degenerative disc disease, increasing in severity from right to left with narrowing of left side of the disc more than 80%, prominent disc osteophyte complex along the ventral as well as dorsal vertebral margins causing encroachment throughout, slightly more into the left side with additional encroachment by thickened ligaments from facet arthritis causing spinal stenosis with moderate thecal sac compression. Foraminal narrowing noted also on the left side with left nerve compression suspected. CONCLUSIONS: 1. Lumbar scoliosis, kyphosis with degenerative disc disease and facet arthritis at all lumbar levels, more severe at lower 2 lumbar levels. 2. Spinal stenosis with moderate to severe thecal sac compression at L3-L4, slightly less severe at L4-L5, L5-S1 and L2-L3 levels. 3. Foraminal narrowing with possible left nerve compression at L5-S1. Left nerve compression also suspected in the paravertebral space region at L4-L5. 4. Incidental note of multiple gallstones without any signs of acute cholecystitis. Imaging: XR spine Moderate levocurvature centered at L2-L3 with a mild rotary component is noted. There is chronic height loss along the left aspect of the L4 and L5 vertebral bodies. The vertebral bodies are otherwise normal in height and in normal alignment. Advanced spondylosis is noted along the lateral aspect of L4-L5 and L5-S1 with milder spondylotic changes at the remaining lumbar levels. A catheter terminates over the mid pelvis, collimated from view superiorly. IMPRESSION No acute osseous abnormality. DEXA 2019 FINDINGS: Details of the results are enclosed for your review. The summary is as follows. RIGHT HIP: BMD value is 0.703 gm/sq cm, with T-score of -2.4. Estimated BMD in the neck was 0.722 g/sq cm with T score of - 2.3. LEFT HIP: BMD value is 0.740 gm/sq cm, with T-score of -2.1. Estimated BMD in the neck was 0.744 g/sq cm with T score of - 2.1. LUMBAR SPINES: Average BMD value from L1 through L4 is 1.292 gm/sq cm, with T-score 0.8. However, these values are overestimated due to lumbar scoliosis and degenerative spondylosis, most prominent at L4-L5 level. BMD values of 1.026 g/sq cm at L1 with T score of - 0.9, are probably more accurate. CONCLUSION: Moderate to severe osteopenia in the right as well as left femur with increased risk for fracture. Assessment: Grace Leiva is a 42 year old female with Osteopenia determined by x-ray (primary encounter diagnosis) Back pain at L4-L5 level Narrowing of intervertebral disc space Closed compression fracture of L5 lumbar vertebra with delayed healing, subsequent encounter Plan: I have discussed the patient's physical exam and reviewed their x-rays and imaging with them in detail. All questions have been answered. We have talked about all the treatment options and have agreed upon: - Xray shows compression fracture - Activity modification to minimize pain - NSAIDs prn for pain. -Reviwed MRI spine and DEXA. -Continue Gabapentin for the radiculopathy. - Heat therapy prn for pain. -Rx Boniva once a month for osteopenia. -- Administer first thing in the morning and ?30 minutes before the first food, beverage (except plain water), or other medication(s) of the day. Do not take with mineral water or with other beverages.Patients should be instructed to stay upright (not to lie down) for at least 30 minutes and until after first food of the day (to reduce esophageal irritation). - Please let us know if your reflux is worsening even while taking pantoprazole and taking care of your diet -Insisted to do SONJA . - Follow up after SONJA,if the pain persists will refer to . MARTHA Vyas. Orthopedics surgery. documented in this encounter Plan of Treatment Health Maintenance Due Date Last Done Comments DTaP,Tdap,and Td Vaccines (1 - 1992 Tdap) PAP SMEAR 1994 MAMMOGRAM 2013 INFLUENZA VACCINE (#1) 2019 PNEUMOCOCCAL 0-64 YEARS COMBINED Aged Out No longer eligible based on SERIES patient's age to complete this topic documented as of this encounter Results Not on filedocumented in this encounter Visit Diagnoses Diagnosis Osteopenia of multiple sites - Primary Spinal stenosis of lumbar region at multiple levels Spinal stenosis, lumbar region, without neurogenic claudication Narrowing of intervertebral disc space Degeneration of intervertebral disc, site unspecified documented in this encounter Insurance Payer Benefit Plan / Subscriber ID Effective Phone Address Type Group Dates [facility] [id number] 2017-Prese Medicare Adv HEALTHCARE - HEALTHCARE DUAL nt HMO MANAGED COMPLETE HMO MEDICARE [facility] xxxxxxxxx 2018-Prese Medicaid HEALTHCARE COMM PLUS nt PLAN - MANAGED MEDICAID [phone] [id number] (Work) documented as of this encounter
--- OUTSIDE RECORDS SUMMARY | 2019-03-21 18:16 | XMS REPORT | Summary of Care ---
:1975 Author Organization [facility] Address [address] [place] [id number] Care Team Providers Name Role Phone Mani Chavez MD Primary Care Provider Reason for Visit Reason Comments Back Pain Encounter Details Date Type Department Care Team Description 01/17/[address] [facility] Sherita Osteopenia of multiple sites (Primary Dx); Orthopaedic Surgery- , Shibi, MASTER PLANNER Spinal stenosis of lumbar region at multiple levels; [address] Narrowing of intervertebral disc space [address] 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 The patient had physical therapy for their [...] ID Effective Phone Address Type Group Dates [facility] [id number] 2017-Prese Medicare Adv HEALTHCARE - HEALTHCARE DUAL nt HMO MANAGED COMPLETE HMO MEDICARE [facility] xxxxxxxxx 2018-Prese Medicaid HEALTHCARE COMM PLUS nt PLAN - MANAGED MEDICAID [phone] [id number] (Work) documented as of this encounter
--- OUTSIDE RECORDS SUMMARY | 2019-03-21 18:16 | XMS REPORT | Summary of Care ---
:1975 Author Organization [facility] Address [address] [place] [address] Care Team Providers Name Role Phone Mani Chavez MD Primary Care Provider Reason for Visit Reason Comments Refill Request Encounter Details Date Type Department Care Team Description 12/20/2018 Telephone [facility] Orthopaedic Sherita, Refill Request Surgery- [facility] [address] [facility] [address] [place] [address] [place], [place] [address] Allergies Active Allergy Reactions Severity Noted Date [...] multiple every month for sites 12 doses. documented as of this encounter [...] 01/17/2019 Office Visit Orthopedic Surgery Vitaliy Magallon, GEOLOGY ASSOCIATE [address] [place] [address] [phone] Health Maintenance Due Date Last Done Comments [...] Subscriber ID Effective Phone Address Type Group [facility] [id number] 2017-Prese Medicare Adv HEALTHCARE - HEALTHCARE DUAL nt HMO MANAGED COMPLETE HMO MEDICARE [facility] xxxxxxxxx 2018-Prese Medicaid HEALTHCARE COMM PLUS nt PLAN - MANAGED MEDICAID documented as of this encounter
--- OUTSIDE RECORDS SUMMARY | 2019-03-21 18:17 | XMS REPORT | Summary of Care ---
:1975 Author Name BLAINE MERCER M.D. Address Unavailable Unavailable , Care Team Providers Name Role Phone SYLVIE Sorto, BLAINE Unavailable Unavailable IZABEL Sorto, EILEEN Unavailable Unavailable PIERRE OTERO, LUÍS Quan Unavailable Unavailable SYLVIE OTERO MD, BLAINE Allen Unavailable Unavailable JESENIA MEHTA MD, TED Leiva Unavailable Unavailable Unavailable Unavailable Unavailable Functional Status [...] MERCER M.D. Start : 21-Jun-2018 Active Ergocalciferol 39647 UNIT Oral Capsule TAKE 1 CAPSULE WEEKLY. Quantity: 12 Refills: 0 EILEEN PAIZ M.D. 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 History of sinusitis (V12.69, Z87.09) Status: Resolved History of streptococcal pharyngitis (V12.09, Z87.09) Status: Resolved History of thyroid disease (V12.29, Z86.39) Status: Resolved Procedures Procedure Dates Details History of Appendectomy Completed History of Ovarian Surgery Completed Immunization Name Dates Details Influenza on: 01-Mar-2013 Lot #: [id number] Family History Name Dates Details Family history [...] smoker Vital Signs Date Test Result Details No Known Vitals to report Results Date Description Value Details Results not documented Plan of Care Name Dates Details Planned Observations Planned Goals not documented Planned Encounters Appointment; EILEEN PAIZ M.D. On: 09-May-2019 9:45 Instructions Name Dates Details Instructions not documented Encounters Appointment; EILEEN PAIZ M.D. On: 23-Mar-2017 9:00 [...]
[2019-03-21] MEDS ORDERED: NA CHLORIDE 0.9% 500 ML ONE (19:34)
[2019-03-21] MEDS ORDERED: MORPHINE 2 MG/ML SYR ONE (19:34)
[2019-03-21] MEDS ORDERED: ONDANSETRON 4 MG/2 ML VIAL ONE (19:34)
[2019-03-21] MEDS ORDERED: TETANUS & DIPHTHERIA TOX,ADULT 0.5 ML VIAL ONE (19:34)
[2019-03-21] MEDS ORDERED: CEFAZOLIN/SWI 1gm 1 GM/10 ML SYR ONE (19:39)
[2019-03-21] MEDS ORDERED: NA CHLORIDE 0.9% 100 ML IV ONE (19:39)
[2019-03-21 20:16] LABS: Absolute Lymphocytes (CBC) 1.9 K/uL (0.7-4.9); Basophils % 0.4 % (0-1.3); Hematocrit 36.8 % (36.0-45.0); Lymphocytes % 23.7 % (15.3-44.8); MPV 7.3 fL (7.6-11.3); RBC Red Blood Cell Count 4.28 M/uL (3.86-4.86)
--- NOTE | 2019-03-21 20:18 | ER ---
Nurse's Notes [facility] Name: Grace Sarmiento Age: 43 yrs Sex: Female : 1975 Arrival Date: 03/21/2019 Time: 18:15 Bed 5 Private MD: Diagnosis: Ocular laceration and rupture with prolapse or loss of intraocular tissue, left eye Presentation: 03/21 18:26 Presenting complaint: Pt is legally blind, fell while ambulating to bathroom last hb night, hit left eye on dresser. Transition of care: patient was not received from another setting of care. Mechanism of Injury: Fall from standing position. Onset of symptoms was March 20, 2019. Risk Assessment: Do you want to hurt yourself or someone else? Patient reports no desire to harm self or others. Care prior to arrival: None. 18:26 Method Of Arrival: Ambulatory hb 18:26 Acuity: SONJA 2 hb 18:33 The patient denies any loss of vision. Initial Sepsis Screen: Does the patient meet any tw2 2 criteria? No. Patient's initial sepsis screen is negative. Does the patient have a suspected source of infection? No. Patient's initial sepsis screen is negative. Note pt is legally blind. 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 - Social history:: Smoking status: Patient/guardian denies using tobacco. - Ebola Screening: : No symptoms or risks identified at this time. - Family history:: not pertinent. Screenin:33 Abuse screen: Denies threats or abuse. Nutritional screening: No deficits noted. tw2 Tuberculosis screening: No symptoms or risk factors identified. Fall Risk Secondary diagnosis (15 points) impaired mobility. Assessment: 18:30 General: Appears in no apparent distress. well groomed, well developed, well nourished, sg Behavior is calm, cooperative, appropriate for age. Pain: Complains of pain in head Quality of pain is described as tender. Neuro: Level of Consciousness is awake, alert, obeys commands, Oriented to person, place, time, situation, Light Rail Transit Operator are equal bilaterally Moves all extremities. 18:59 Cardiovascular: Capillary refill is brisk in bilateral fingers Patient's skin is warm sg and dry. Chest pain is denied. Respiratory: Airway is patent Respiratory effort is even, unlabored, Respiratory pattern is regular, symmetrical. GI: Abdomen is round non-distended. : No signs and/or symptoms were reported regarding the genitourinary system. EENT: Eyes are tearing on left eye Nares are clear bilaterally Oral mucosa is moist. Throat is clear. Derm: Skin is pink, warm \T\ dry. Musculoskeletal: Circulation, motion, and sensation intact. Range of motion: intact in all extremities, Swelling present in left cheek. 19:00 Reassessment: Patient appears in no apparent distress at this time. pt ambulatory with sg assistance to ER restroom with family. 19:10 General: Appears in no apparent distress. uncomfortable, Behavior is calm, cooperative, rr5 appropriate for age. Pain: Complains of pain in left eye Pain does not radiate. Quality of pain is described as aching, tender, Pain began suddenly, 1 day ago. Is intermittent. Neuro: Level of Consciousness is awake, alert, obeys commands, Oriented to person, place, time, situation, Light Rail Transit Operator are equal bilaterally Moves all extremities. Cardiovascular: Capillary refill < 3 seconds is brisk Patient's skin is warm and dry. Respiratory: Airway is patent Respiratory effort is even, unlabored, Respiratory pattern is regular, symmetrical. GI: No signs and/or symptoms were reported involving the gastrointestinal system. : No signs and/or symptoms were reported regarding the genitourinary system. EENT: Eyes are tearing on iris of left eye with cataract noted in iris of left eye swollwen left eye. Nares are clear bilaterally. Derm: Skin is intact, Skin is pink, warm \T\ dry. Musculoskeletal: Circulation, motion, and sensation intact. Capillary refill < 3 seconds. 19:30 Reassessment: ED provider spoke to dr. hill over the phone. awaiting for dr. hill to [facility] come. 20:30 Reassessment: Patient appears in no apparent distress at this time. No changes from 5 previously documented assessment. Patient and/or family updated on plan of care and expected duration. Pain level reassessed. 21:00 Reassessment: Patient appears in no apparent distress at this time. Patient and/or rr5 family updated on plan of care and expected duration. Pain level reassessed. Patient is alert, oriented x 3, equal unlabored respirations, skin warm/dry/pink. dr. bal at bedside. examining the patient, patient and relative agreed for the admission. 21:25 Reassessment: report given to [facility] floor. before transferring the [address] hill to come if straight to OR or regular room. 21:49 Reassessment: Patient appears in no apparent distress at this time. anesthesiologist at [facility] bedside examining the patient. Vital Signs: 18:26 BP 96 / 73; Pulse 70; Resp 16; Temp 99.1(TE); Pulse Ox 97% on R/A; Weight 64.86 kg; hb Height 5 ft. 6 in. (167.64 cm); Pain 5/10; 19:05 BP 117 / 71; Pulse 75; Resp 17; Temp 98.9; Pulse Ox 99% ; Pain 5/10; rr5 20:00 BP 115 / 65; Pulse 79; Resp 15; Pulse Ox 98% ; Pain 4/10; rr5 21:00 BP 111 / 70; Pulse 70; Resp 16; Temp 98.8; Pulse Ox 99% ; rr5 18:26 Body Mass Index 23.08 (64.86 kg, 167.64 cm) hb ED Course: 18:15 Patient arrived in ED. rg4 18:26 Arm band placed on. hb 18:28 Triage completed. hb 18:33 Bed in low position. Call light in reach. Side rails up X2. Adult w/ patient. tw2 18:40 Marco Blas MD is Attending Physician. bob 19:18 Jayesh Pop RN is Primary Nurse. rr5 19:55 Inserted saline lock: 22 gauge in right forearm, using aseptic technique. Blood rr5 collected. 20:12 Lito Hill MD is Hospitalizing Provider. bob 20:14 Nena Bal MD is Hospitalizing Provider. bob 20:28 Chest Single View XRAY In Process Unspecified. EDMS 20:35 Initial lab(s) drawn, by me, sent to lab. EKG done, by ED staff, reviewed by Marco Blas MD. 21:16 No provider procedures requiring assistance completed. Patient admitted, IV remains in rr5 place. intact, No redness/swelling at site. Administered Medications: 19:55 Drug: NS 0.9% 500 ml Route: IV; Rate: bolus; Site: right forearm; rr5 21:54 Follow up: Response: No adverse reaction; IV Status: Completed infusion; IV Intake: rr5 500ml 19:56 Drug: Zofran 4 mg Route: IVP; Site: right forearm; rr5 21:31 Follow up: Response: No adverse reaction rr5 19:58 Drug: morphine 2 mg {Note: rass 0.} Route: IVP; Site: right forearm; rr5 21:00 Follow up: Response: No adverse reaction; RASS: Alert and Calm (0) rr5 20:00 Dru grams of (Ancef 1 grams, NS 0.9% 100 ml) Route: IVPB; Site: right forearm; rr5 21:30 Follow up: Response: No adverse reaction; IV Status: Completed infusion; IV Intake: rr5 100ml 20:10 Drug: Tetanus-Diphtheria Toxoid Adult 0.5 ml {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 Exp: rr5 10/07/2020. Lot #: [id number]. } Route: IM; Site: right deltoid; 21:31 Follow up: Response: No adverse reaction rr5 Intake: 21:30 IV: 100ml; Total: 100ml. rr5 21:54 IV: 500ml; Total: 600ml. rr5 Outcome: 20:17 Decision to Hospitalize by Provider. [facility] 21:53 Admitted to OR accompanied by nurse, via stretcher, room OR, with chart, Report called rr5 to jewell 21:53 Condition: stable 21:53 Instructed on the need for admit. 21:55 Patient left the ED. rr5 Signatures: Dispatcher [employer] EDMS Victoriano Flores RN RN Marco Rodarte MD MD cha Baxter, Heather, RN RN Estefanía So RN RN [email or web address] Judit Santacruz 4 Jayesh Pop, RN RN rr5 Corrections: (The following items were deleted from the chart) 19:00 18:30 Neuro: Level of Consciousness is awake, alert, obeys commands, Oriented to sg person, place, time, situation, Light Rail Transit Operator are equal bilaterally Moves all extremities. sg 21:17 19:05 BP 117 / 71; Pulse 75bpm; Resp 17bpm; Pulse Ox 99%; Temp 98.9F; rr5 rr5 21:24 21:00 BP 111 / 70; Pulse 70bpm; Resp 16bpm; Pulse Ox 99%; rr5 rr5
--- NOTE | 2019-03-21 20:18 | EDPHYS ---
Physician Documentation [facility] Name: Grace Sarmiento Age: 43 yrs Sex: Female : 1975 Arrival Date: 03/21/2019 Time: 18:15 Bed 5 Private MD: ED Physician Marco Blas HPI: 03/21 19:30 This 43 yrs old Female presents to ER via Ambulatory with complaints of Eye bob Injury. 19:30 The patient is experiencing pain, tearing, The patient sustained contusion, laceration bob to left cornea. Onset: The symptoms/episode began/occurred last night, 1 day(s) ago. Duration: the symptoms are continuous. Aggravated by blinking, closing eye, light, opening eye. Associated signs and symptoms: Pertinent positives: None. Pertinent negatives: None. Patient bline ou, no light perception. Severity of symptoms: At their worst the symptoms were mild moderate in the emergency department the symptoms are unchanged. The patient has not experienced similar symptoms in the past. NICKER: 18:34 LMP N/A - tw2 Historical: - Allergies: 18:29 Iodine; hb 18:29 PENICILLINS; hb - Home Meds: 18:29 clonazepam 0.5 mg Oral tab 1 tab 2 times per day [Active]; hydrocortisone 5 mg Oral tab hb 1 tab once daily [Active]; Lamictal 200 mg Oral tab 2 tabs 2 times per day [Active]; lamotrigine 150 mg Oral tab 2 tabs once daily [Active]; levetiracetam 1,000 mg Oral tab 1 tab every 12 hours [Active]; levothyroxine 125 mcg tab 1 tab once daily [Active]; sertraline 100 mg Oral tab 1 tab once daily [Active]; - PMHx: 18:29 HARD OF HEARING; TUMORS ON BRAIN X 7; BLIND; Hypothyroidism; Seizures; hb - PSHx: 18:29 PEG TUBE; BRAIN TUMOR REMOVED; hb - Immunization history:: Adult Immunizations up to date. - Social history:: Smoking status: Patient/guardian denies using tobacco. - Ebola Screening: : No symptoms or risks identified at this time. - Family history:: not pertinent. ROS: 19:32 Constitutional: Negative for fever, chills, and weight loss, ENT: Negative for injury, bob pain, and discharge, Neck: Negative for injury, pain, and swelling, Cardiovascular: Negative for chest pain, palpitations, and edema, Respiratory: Negative for shortness of breath, cough, wheezing, and pleuritic chest pain, Abdomen/GI: Negative for abdominal pain, nausea, vomiting, diarrhea, and constipation, Back: Negative for injury and pain, : Negative for injury, bleeding, discharge, and swelling, MS/Extremity: Negative for injury and deformity, Skin: Negative for injury, rash, and discoloration, Neuro: Negative for headache, weakness, numbness, tingling, and seizure, Psych: Negative for depression, anxiety, suicide ideation, homicidal ideation, and hallucinations, Allergy/Immunology: Negative for hives, rash, and allergies, Endocrine: Negative for neck swelling, polydipsia, polyuria, polyphagia, and marked weight changes, Hematologic/Lymphatic: Negative for swollen nodes, abnormal bleeding, and unusual bruising. 19:32 Eyes: Positive for injury or acute deformity, pain, swelling. Exam: 19:32 Constitutional: This is a well developed, well nourished patient who is awake, alert, bob and in no acute distress. Head/Face: Normocephalic, atraumatic. ENT: Nares patent. No nasal discharge, no septal abnormalities noted. Tympanic membranes are normal and external auditory canals are clear. Oropharynx with no redness, swelling, or masses, exudates, or evidence of obstruction, uvula midline. Mucous membranes moist. Neck: Trachea midline, no thyromegaly or masses palpated, and no cervical lymphadenopathy. Supple, full range of motion without nuchal rigidity, or vertebral point tenderness. No Meningismus. Chest/axilla: Normal chest wall appearance and motion. Nontender with no deformity. No lesions are appreciated. Cardiovascular: Regular rate and rhythm with a normal S1 and S2. No gallops, murmurs, or rubs. Normal PMI, no JVD. No pulse deficits. Respiratory: Lungs have equal breath sounds bilaterally, clear to auscultation and percussion. No rales, rhonchi or wheezes noted. No increased work of breathing, no retractions or nasal flaring. Abdomen/GI: Soft, non-tender, with normal bowel sounds. No distension or tympany. No guarding or rebound. No evidence of tenderness throughout. Back: No spinal tenderness. No costovertebral tenderness. Full range of motion. Skin: Warm, dry with normal turgor. Normal color with no rashes, no lesions, and no evidence of cellulitis. MS/ Extremity: Pulses equal, no cyanosis. Neurovascular intact. Full, normal range of motion. Neuro: Awake and alert, GCS 15, oriented to person, place, time, and situation. Cranial nerves II-XII grossly intact. Motor strength 5/5 in all extremities. Sensory grossly intact. Cerebellar exam normal. Normal gait. Psych: Awake, alert, with orientation to person, place and time. Behavior, mood, and affect are within normal limits. 19:32 Eyes: Periorbital structures: swelling, Pupils: obilaterated, Extraocular movements: minimal, Conjunctiva: injected, Corneas: lacereation, Sclera: edema. Vital Signs: 18:26 BP 96 / 73; Pulse 70; Resp 16; Temp 99.1(TE); Pulse Ox 97% on R/A; Weight 64.86 kg; hb Height 5 ft. 6 in. (167.64 cm); Pain 5/10; 19:05 BP 117 / 71; Pulse 75; Resp 17; Temp 98.9; Pulse Ox 99% ; Pain 5/10; rr5 20:00 BP 115 / 65; Pulse 79; Resp 15; Pulse Ox 98% ; Pain 4/10; rr5 21:00 BP 111 / 70; Pulse 70; Resp 16; Temp 98.8; Pulse Ox 99% ; rr5 18:26 Body Mass Index 23.08 (64.86 kg, 167.64 cm) hb MDM: 18:40 Patient medically screened. [facility] 19:35 Data reviewed: vital signs, nurses notes, lab test result(s). [facility] 03/21 19:30 Order name: CBC with Diff; Complete Time: 21:04 [facility] 03/21 19:30 Order name: Comprehensive Metabolic Panel; Complete Time: 21:04 [facility] 03/21 20:08 Order name: PT-INR; Complete Time: 21:04 [facility] 03/21 20:08 Order name: Ptt, Activated; Complete Time: 21:04 [facility] 03/21 20:28 Order name: Basic Metabolic Panel [facility] 03/21 20:28 Order name: Basic Metabolic Panel [facility] 03/21 20:08 Order name: Chest Single View XRAY; Complete Time: 21:04 [facility] 03/21 20:28 Order name: CBC with Automated Diff [facility] 03/21 20:28 Order name: CBC with Automated Diff [facility] 03/21 20:08 Order name: EKG; Complete Time: 20:10 [facility] 03/21 20:08 Order name: EKG - Nurse/Tech; Complete Time: 20:37 [facility] 03/21 20:24 Order name: CONS Physician Consult [facility] 03/21 20:28 Order name: NPO EDMS Administered Medications: 19:55 Drug: NS 0.9% 500 ml Route: IV; Rate: bolus; Site: right forearm; rr5 21:54 Follow up: Response: No adverse reaction; IV Status: Completed infusion; IV Intake: rr5 500ml 19:56 Drug: Zofran 4 mg Route: IVP; Site: right forearm; rr5 21:31 Follow up: Response: No adverse reaction rr5 19:58 Drug: morphine 2 mg {Note: rass 0.} Route: IVP; Site: right forearm; rr5 21:00 Follow up: Response: No adverse reaction; RASS: Alert and Calm (0) rr5 20:00 Dru grams of (Ancef 1 grams, NS 0.9% 100 ml) Route: IVPB; Site: right forearm; rr5 21:30 Follow up: Response: No adverse reaction; IV Status: Completed infusion; IV Intake: rr5 100ml 20:10 Drug: Tetanus-Diphtheria Toxoid Adult 0.5 ml {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 Exp: rr5 10/07/2020. Lot #: [id number]. } Route: IM; Site: right deltoid; 21:31 Follow up: Response: No adverse reaction rr5 Disposition: 03/21/19 20:17 Hospitalization ordered by Nena Blakely for Observation. Preliminary diagnosis is Ocular laceration and rupture with prolapse or loss of intraocular tissue, left eye. - Bed requested for Telemetry/MedSurg (observation). - Status is Observation. rr5 - Condition is Fair. - Problem is new. - Symptoms are unchanged. UTI on Admission? No Signatures: Dispatcher [employer] EDMS Marco Blas MD MD cha Garcia, Cindy, EDITH RN Neha Tubbs RN RN hb Roque, Raymond, RN RN rr5 Corrections: (The following items were deleted from the chart) 21:02 20:17 Hospitalization Ordered by Nena Blakely MD for Observation. Preliminary cg diagnosis is Ocular laceration and rupture with prolapse or loss of intraocular tissue, left eye. Bed requested for Telemetry/MedSurg (observation). Status is Observation. Condition is Fair. Problem is new. Symptoms are unchanged. UTI on Admission? No. bob 21:55 21:02 03/21/2019 20:17 Hospitalization Ordered by Nena Blakely MD for Observation. rr5 Preliminary diagnosis is Ocular laceration and rupture with prolapse or loss of intraocular tissue, left eye. Bed requested for Telemetry/MedSurg (observation). Status is Observation. Condition is Fair. Problem is new. Symptoms are unchanged. UTI on Admission? No. cg
[2019-03-21] MEDS ORDERED: ACETAMINOPHEN 500 MG TAB PO PRN (20:23)
[2019-03-21] MEDS ORDERED: MORPHINE 2 MG/ML SYR IV PRN (20:23)
[2019-03-21] MEDS ORDERED: ONDANSETRON 4 MG/2 ML VIAL IV PRN (20:23)
[2019-03-21 20:28] LABS: Albumin 3.8 g/dL (3.4-5.0); Bilirubin Total 0.2 mg/dL (0.2-1.0); Potassium 3.6 mmol/L (3.5-5.1); Protein, Total 6.7 g/dL (6.4-8.2)
--- NOTE | 2019-03-21 20:34 | RAD REPORT ---
EXAM DESCRIPTION: RAD - Chest Single View - 03/21/2019 8:28 pm CLINICAL HISTORY: COUGH Chest pain. COMPARISON: Chest Single View dated 10/02/2018; CHEST SINGLE VIEW dated 03/05/2015; CHEST SINGLE VIEW d ated 08/22/2013; CHEST SINGLE VIEW dated 01/28/2010 FINDINGS: Portable technique limits examination quality. The lungs are grossly clear. The heart is normal in size. No displaced fractures.Right-sided shunt tu sindhu is noted. IMPRESSION: No acute intrathoracic process suspected.
[2019-03-21 20:57] LABS: Protime INR 0.88
[2019-03-21] MEDS ORDERED: BSS OPTHALMIC SOL 15 ML BOT OPTH ONE (21:40)
[2019-03-21] MEDS ORDERED: POVIDONE-IODINE 5% EYE DROPS ONE (21:41)
[2019-03-21] MEDS ORDERED: BALANCED SALT IRRIG PLAIN 500 ML BTL IRR ONE (21:41)
[2019-03-21] MEDS ORDERED: NA CHLORIDE 0.9% 1,000 ML ONE (22:04)
[2019-03-21] MEDS ORDERED: LIDOCAINE 2% MPF 5 ML VIAL ONE (22:05)
[2019-03-21] MEDS ORDERED: PROPOFOL 200 MG/20 ML VIAL IV ONE ×2 (22:05→23:26)
[2019-03-21] MEDS ORDERED: ROCURONIUM 50 MG/5 ML VIAL IV ONE ×2 (22:06→23:40)
[2019-03-21] MEDS ORDERED: MIDAZOLAM HCL 2 MG/2 ML INJ ONE (22:06)
[2019-03-21] MEDS ORDERED: FENTANYL CITR 100 MCG/2 ML ONE (22:06)
[2019-03-21] MEDS ORDERED: HYALURONATE SODIUM 14 MG/ML SYR OPTH ONE (22:53)
[2019-03-21] MEDS ORDERED: EPHEDRINE SULF 50 MG/ML VIAL ONE (23:26)
[2019-03-21] MEDS ORDERED: GLYCOPYRROLATE 0.2 MG/ML SYR ONE ×2 (23:32→23:33)
[2019-03-21] MEDS ORDERED: NEOSTIGMINE 1 MG/ML -5 ML ONE (23:32)
[2019-03-22] MEDS ORDERED: TOBRADEX 0.3-0.1% OPTH OINTMENT ONE (00:06)
[2019-03-22] MEDS: NA CHLORIDE 0.9% 1,000 ML IV SCH ×3 (01:16→09:49)
[2019-03-22] MEDS ORDERED: CEFAZOLIN SODIUM 1 GM/VIAL ONE (01:45)
[2019-03-22] MEDS: CEFAZOLIN/NS 1gm 1 GM/50 ML BAG IVPB SCH ×2 (02:01→05:36)
[2019-03-22 02:34] VITALS: BMI 23.1
--- NOTE | 2019-03-22 05:06 | OP ---
Surgeon: Lito Musa MD Preoperative Diagnosis: Ruptured globe, left eye. Postoperative Diagnosis: Ruptured globe, left eye. Procedure Performed: Repair of ruptured globe, left eye with modified Kim /conjunctival flap. Procedure In Detail: After being properly identified in the preoperative holding, the patient was taken back to the operating room where a time-out was performed. The patient was then prepped and draped by myself because of the ruptured globe previously identified, specifically the central cornea displayed a large area of iris prolapse and uvea; however, and what appeared to be a 40% to 50% hyphema, but underneath examination underneath the operating microscope revealed an opacified cornea with both deep and superficial neovascularization with no view into the anterior chamber, but because the accident was approximately 24 hours ago and the uveal mass sitting on the epithelium prolonged prior to repositing it, the cryoprobe was used in order to kill and remove any possible epithelial cells. The cryoprobe was performed using a freeze thaw technique and once all aspects had been performed, the iris was reposited into the wound, only a small amount required amputation. Prior to this a paracentesis wound was made and what was estimated to be the limbus, again anatomic features were disrupted and Healon inserted in order to potentially create any space to no avail. Thereafter, the corneal laceration was repaired using 10-0 nylon suture. During this portion, the corneal tissues were found to be extremely friable -cheese-wiring and threading with the passage of the needle. I was eventually able to close the wound almost entirely , however this required approximately 15 sutures and again because of the irregular nature of the closure and lack of the globe, this was not able to properly rotate the sutures so that the patient would be irritated. That in conjunction with the poor nature of the corneal tissue, again the decision was made to proceed with a Kim flap. 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 Prior to initiation of surgery, the patient had a large amount of proptosis and a fair amount of conjunctival chemosis and exposure, which the patient's family reported was longstanding as well. This should ultimately help preserve her globe as I will discuss with the family later. She may benefit from a permanent tarsorrhaphy in the future, but this was not performed this evening. After adequately closing the cornea and conjunctiva as described above, the patient was taken to the postoperative holding area in stable condition having tolerated the procedure well. There were no complications. Estimated blood loss less than 5 mL. No specimens were sent. No drains were placed. To admit the patient overnight to ensure that she has adequate pain control. We will anticipate her discharge tomorrow or the next day. DAMION/DEWAYNE Voice ID: [id number] Report ID: [id number] MTDD
[2019-03-22 05:52] LABS: Urine Appearance CLEAR; Urine Bilirubin NEGATIVE (NEG); Urine Blood NEGATIVE (NEG); Urine Color YELLOW; Urine Glucose NEGATIVE (NEG)
[2019-03-22 05:53] LABS: Urine Microscopic Reflex ORDER UMIC; Urine Protein NEGATIVE (NEG); Urine Urobilinogen 0.2 mg/dL (0.2-1.0)
[2019-03-22 05:53] LABS: Absolute Lymphocytes (CBC) 2.4 K/uL (0.7-4.9); Basophils % 0.8 % (0-1.3); Hematocrit 39.1 % (36.0-45.0); Lymphocytes % 37.4 % (15.3-44.8); MPV 7.6 fL (7.6-11.3); RBC Red Blood Cell Count 4.51 M/uL (3.86-4.86)
[2019-03-22 05:54] LABS: Potassium 4.2 mmol/L (3.5-5.1)
[2019-03-22] MEDS ORDERED: INFLUENZA VACCINE (for 3y+) 0.5 ML DOSE IMVAC ONE (06:00)
[2019-03-22 06:05] LABS: Urine Bacteria <20 /HPF (<20); Urine Culture Reflex Order REFLEXED; Urine RBC <5 /HPF (NONE SEEN); Urine Urothelial Cells <5 /HPF (NONE SEEN)
[2019-03-22] MEDS ORDERED: clonazePAM 0.5 MG TAB PO PRN (08:56)
--- NOTE | 2019-03-22 08:57 | P.HP ---
Certification for Inpatient Patient admitted to: Observation With expected LOS: <2 Midnights Patient will require the following post-hospital care: None Practitioner: I am a practitioner with admitting privileges, knowledge of patient current condition, hospital course, and medical plan of care. Services: Services provided to patient in accordance with Admission requirements found in Title 42 Section 412.3 of the Code of Federal Regulations Patient History Date of Service: 03/21/19 Reason for admission: Eye injury History of Present Illness: Pt is a 43-year-old female who came to the hospital after falling and injuring her left eye. It appears she has a corneal tear and her eye is protruding. Patient is blind and has numerous medical issues. Her family takes care of her. She is supposed to be using a stick to get around; however, she feels like she does not needed. She has had multiple bumps and bruises from running into the wall. Her family found her vision that way but patient was not willing to come to the hospital. She was worried she would have to stay. However, the family was able to get her to realize she needed to be evaluated. She decided to come into the hospital for further evaluation. In the emergency room, it was noted that her left eye was protruding and was very tearful. She has significant erythema around the eye and her pupil looks to be injured as well. Ophthalmology has been consulted and patient will be going to emergency surgery. Patient has multiple chronic it medical issues but these are stable. Will continue her home medications. She took all her seizure medications this evening. She has also taking her additional home medications. We will continue these during hospital stay. Allergies iodine Allergy (Mild, Verified 03/22/19 01:17) throat closure Penicillins Adverse Reaction (Severe, Verified 03/22/19 01:17) throat closure; rashes Home Medications: Clonazepam 0.5 mg PO DAILY PRN 12/18/12 Levetiracetam [Keppra] 2 tab PO BID 12/18/12 Levothyroxine [Synthroid*] 125 mcg PO [id number] 12/18/12 Sertraline [Zoloft*] 100 mg PO DAILY 12/18/12 lamoTRIgine [Lamictal*] 400 mg PO BID 12/18/12 Ergocalciferol (Vitamin D2) [Vitamin D 50,000 Unit Cap] 1 cap PO DAILY 03/22/19 Gabapentin 1 cap PO DAILY 03/22/19 Hydrocortisone [Cortef] 1 tab PO SEECOM 03/22/19 Hydrocortisone [Cortef] 3 tab PO DAILY 03/22/19 - Past Medical/Surgical History Has patient received pneumonia vaccine in the past: No Diabetic: No -: Epilepsy last episode October 2018 -: Brain tumors x6 -: Scoliosis -: Hypothyroidism -: Legally blind -: KAKE -: Shunt -: ovary removal -: benign tumor removal from brain -: Peg tube/removed - Family History Mother Medical History: Hypertension, Diabetes, Other (see notes) Notes: Thyroid dse Father Medical History: Heart disease - Social History Smoking Status: Never smoker Alcohol use: No CD- Drugs: No Caffeine use: Yes Place of Residence: Home Review of Systems 10-point ROS is otherwise unremarkable Physical Examination - Vital Signs Temperature: 97.8 F Blood Pressure: 122/61 Pulse: 70 Respirations: 16 Pulse Ox (%): 98 - Physical Exam General: Alert, In no apparent distress, Oriented x3 HEENT: Mucous membr. moist/pink, Other (trauma to left eye; it is protruding, erythematous, tearing), Sclerae nonicteric Neck: Supple, 2+ carotid pulse no bruit, No LAD, Without JVD or thyroid abnormality Respiratory: Clear to auscultation bilaterally, Normal air movement Cardiovascular: Regular rate/rhythm, Normal S1 S2 Gastrointestinal: Normal bowel sounds, Soft and benign, Non-distended, No tenderness Musculoskeletal: No tenderness Integumentary: No rashes Neurological: Normal speech, Normal tone, Sensation intact, Cranial nerves 3-12 intact Lymphatics: No axilla or inguinal lymphadenopathy Other Physical/Emotional Findings: Left eye is protruding; erythema, tearing - Studies Laboratory Data (last 24 hrs) 03/21/19 19:55: Sodium 137, Potassium 3.6, BUN 9, Creatinine 1.01, Glucose 123 H , Total Bilirubin 0.2, AST 14 L, ALT 14, Alkaline Phosphatase 60 03/21/19 19:55: WBC 7.8, Hgb 12.4, Hct 36.8, Plt Count 206 Assessment & Plan - Problems (Diagnosis) (1) Trauma to eye, left Current Visit: Yes Status: Acute (2) Seizure Current Visit: Yes Status: Acute (3) 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 Patient to the OR per Ophthalmology 2. Resume anti epileptic 3. monitor patient anxiety as the family states that when she gets anxious and triggers her seizures 4. monitor neurologic status closely 5. possible discharge tomorrow pending surgery and Ophthalmology recommendations. Discharge Plan: Home Plan to discharge in: 24 Hours - Advance Directives Does patient have a Living Will: No Does patient have a Durable POA for Healthcare: Yes - Code Status/Comfort Care Code Status Assessed: Yes Code Status: Full Code Critical Care: No Time Spent Managing PTS Care (In Minutes): 45
[2019-03-22] MEDS: GABAPENTIN 300 MG CAP PO SCH (09:00)
[2019-03-22] MEDS: DRISDOL (VITAMIN D=ERGOCALCIFEROL) 50000 UNIT CAP PO SCH (09:00)
[2019-03-22] MEDS: SERTRALINE HCL 100 MG TAB PO SCH (09:00)
[2019-03-22] MEDS: LEVETIRACETAM PO SCH ×2 (09:00→20:54)
[2019-03-22] MEDS: lamoTRIgine 100 MG TAB PO SCH ×2 (09:00→20:54)
[2019-03-22] MEDS: HYDROCORTISONE 10 MG TAB PO SCH (09:30)
--- NOTE | 2019-03-22 09:44 | EKG ---
Test Date: 2019-03-21 Test Time: 20:32:51 Director Commercial Sales: WALDO MEASUREMENT RESULTS: Intervals: Rate: 64 ND: 164 QRSD: 68 QT: 432 QTc: 445 [place]: P: 64 ND: 164 QRS: 52 T: 70 INTERPRETIVE STATEMENTS: Normal sinus rhythm Low voltage QRS Borderline ECG Compared to ECG 10/02/2018 04:02:22 Low QRS voltage now present ST (T wave) deviation no longer present Electronically Signed On 03-22-19 09:41:52 ONCOLOGY SPECIALIST by Wade Sanders
[2019-03-22] MEDS: CEFAZOLIN/SWI 1gm 1 GM/10 ML SYR IV SCH ×3 (12:47→23:47)
--- NOTE | 2019-03-22 15:39 | P.PN ---
Subjective Date of Service: 03/22/19 Chief Complaint: Eye injury Subjective: No new changes, Tolerating diet, Improving, Working w/ PT, Doing well Review of Systems 10-point ROS is otherwise unremarkable Physical Examination - Vital Signs Temperature: 98.6 F Blood Pressure: 114/60 Pulse: 67 Respirations: 15 Pulse Ox (%): 100 - Physical Exam General: Alert, In no apparent distress HEENT: Other (Left eye with Patch on), EOMI Neck: Supple, JVD not distended Respiratory: Clear to auscultation bilaterally, Normal air movement Cardiovascular: Regular rate/rhythm, Normal S1 S2 Gastrointestinal: Normal bowel sounds, No tenderness Musculoskeletal: No tenderness Integumentary: No rashes Neurological: Normal speech, Normal tone, Normal affect Lymphatics: No axilla or inguinal lymphadenopathy Other Physical/Emotional Findings: Left eye is protruding; erythema, tearing - Studies Laboratory Data (last 24 hrs) 03/21/19 19:55: Sodium 137, Potassium 3.6, BUN 9, Creatinine 1.01, Glucose 123 H , Total Bilirubin 0.2, AST 14 L, ALT 14, Alkaline Phosphatase 60 03/21/19 19:55: WBC 7.8, Hgb 12.4, Hct 36.8, Plt Count 206 Medications List Reviewed: Yes Assessment And Plan - Current Problems (Diagnosis) (1) Trauma to eye, left Current Visit: Yes Status: Acute Plan: Ruptured left globe -ophthalmology consulted. Appreciated recommendations -currently patient is status post Repair of ruptured globe, left eye with modified Ikm/conjunctival flap -will monitor patient here in the hospital -currently on IV antibiotics will follow up with ophthalmology regarding discharge home. Qualifiers: Encounter type: initial encounter Qualified Code(s): S05.92XA - Unspecified injury of left eye and orbit, initial encounter Discharge Plan: Home Plan to discharge in: 48 Hours - Code Status/Comfort Care Code Status Assessed: Yes Critical Care: No
[2019-03-22] MEDS ORDERED: HYDROCORTISONE 10 MG TAB PO SCH (21:00)
[2019-03-23] MEDS: CEFAZOLIN/SWI 1gm 1 GM/10 ML SYR IV SCH ×2 (05:14→12:45)
[2019-03-23] MEDS ORDERED: LEVOTHYROXINE SOD 0.125 MG TAB PO SCH (06:00)
[2019-03-23] MEDS: HYDROCORTISONE 10 MG TAB PO SCH (08:26)
[2019-03-23] MEDS: GABAPENTIN 300 MG CAP PO SCH (08:28)
[2019-03-23] MEDS: LEVETIRACETAM PO SCH (08:28)
[2019-03-23] MEDS: lamoTRIgine 100 MG TAB PO SCH (08:29)
[2019-03-23] MEDS: SERTRALINE HCL 100 MG TAB PO SCH (08:29)
[2019-03-23] MEDS: DRISDOL (VITAMIN D=ERGOCALCIFEROL) 50000 UNIT CAP PO SCH (08:29)
[2019-03-23 09:10] VITALS: O2SAT 99
[2019-03-23 11:29] VITALS: BP 103/60; TEMP 98.8
--- NOTE | 2019-03-24 12:05 | DS ---
Date of Discharge: 03/23/2019 Hospital Course: This patient is a 43-year-old female who presented for eye injury. She has a history of multiple comorbidities including seizure, benign brain tumor, hypothyroidism, legal blindness, and PARASITOLOGIST shunt. Patient fell and injured her left eye. She had cornea tear and her eye was protruding. Patient was supposed to use stick to walk, but she did not use at this time. She has multiple bumps and bruising from running into the wall. She was brought to the emergency room and she was found to have left eye protruding. There was significant erythema around the eye. Day Care Director, Dr. Musa was consulted. She underwent repair of the ruptured globe. She was treated with IV antibiotics. She is doing better. Her vitals are stable. Patient and her family are eager to go home. Dr. Musa cleared her for discharge. She was prescribed Vigamox eye drop. She was instructed to follow up with quality engineer medical device in 1 week. She knew to follow her neurosurgeon. This patient is a high risk to fall and fall precaution was given. Physical Examination On Discharge: Vital Signs: Temperature 98.8, pulse 73, blood pressure 103/60, oxygen saturation 100% on room air. HEENT: There is redness on the left eye with coverage, status post repair. Legally blind. Chest: Clear to auscultation. Normal breath sounds. Heart: Normal S1, S2. Regular rhythm and rate. No murmur. Abdomen: Soft, nontender. Bowel sounds present. Extremities: Lower extremity, no edema, no cyanosis. Neuro: Patient has a chronic smell reaction, probably due to blindness. Nonfocal. Laboratory Data On Discharge: WBC 6.5, hemoglobin 12.9, and platelets 192. Sodium 144, potassium 4.2, BUN 7, creatinine 0.91. UA unremarkable. Discharge Diagnoses: 1. Left eye trauma and ruptured left eye globe. 2. Seizure disorder. 3. Hypothyroidism. 4. History of benign brain tumor, status post ventriculoperitoneal shunt. 5. Legal blindness. Discharge Activities: Fall precaution. Discharge Diet: Regular diet. Discharge Instructions: 1. Follow up with quality engineer medical device, Dr. Musa in 1 week. 2. Follow up with neurosurgeon in 2 weeks. 3. Follow up with primary care physician in 1 week. 4. Please call ED if you have any kind of sudden or worsening symptoms. I spent about 35 minutes for discharge. QT/MODL Voice ID: [id number] Report ID: [id number]
== END 2019-03-23 14:34 | disposition home health service (06) ==
LOC: ER 18:14 → ERHOLD 20:20 → 2ND 23:31
PROVIDERS: ADMIT Hospitalist; ATTEND Hospitalist
PROC: 08Q1XZZ Repair Left Eye, External Approach (ICD-10-PCS; 2019-03-21)
PROC: 08U Eye, Supplement (ICD-10-PCS; principal; 2019-03-21 22:00)
DX: S05.22XA Ocular laceration and rupture with prolapse or loss of intraocular tissue, left eye, initial encounter (principal); W01.10XA Fall on same level from slipping, tripping and stumbling with subsequent striking against unspecified object, initial encounter; Y92.009 Unspecified place in unspecified non-institutional (private) residence as the place of occurrence of the external cause; E03.9 Hypothyroidism, unspecified; R56.9 Unspecified convulsions; H54.8 Legal blindness, as defined in USA; Z88.0 Allergy status to penicillin; Z98.2 Presence of cerebrospinal fluid drainage device; Z23 Encounter for immunization
CPT/HCPCS: 68362; 66999; 96365; 93005; 87088; 85025 ×2; 80048; 36415; 85610; 85730; 80053; 71045; 90471 ×2; 90714; 96375; 99285; J2704 ×2; Q2035; J2250; J3010; J2270; J2710; J0690 ×4; J7040; J7030 ×3; J2405; G0378 ×3; 81003; 81015; 87086

== ENCOUNTER 2019-12-05 14:31 | Emergency (ER) | payer OTHER ==
--- OUTSIDE RECORDS SUMMARY | 2019-12-05 15:18 | XMS REPORT | Continuity of Care Document ---
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 07/05/19 [facility] [place] DRAINING [address] [place] [address] [place] Active 06/27/19 [facility] as [address] [place] [address] PAIN Active 05/09/[address] G40.901 Active 05/09/[address] G40.219 Active 05/09/[address] Gastroesophageal Resolved Problem 07/29/2015 [facility] reflux disease Medic al (disorder) Center 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/29/2015 [facility] eyes (disorder) [facility] Blood clot Resolved Problem 07/29/2015 [facility] (morphologic Medical abnormality) [place]te Intracranial tumor Resolved Problem 07/29/2015 [facility] (disorder) [facility] Cyst of breast Resolved Problem 07/29/2015 [facility] (disorder) [facility] Epilepsy (disorder) Resolved Problem 07/29/2015 [facility] Hearing loss Resolved Problem 07/29/2015 [facility] as (finding) [facility] Hypothyroidism Resolved Problem 07/29/2015 [facility] (disorder) [facility] Cyst of ovary Resolved Problem 07/29/2015 [facility] [place] (disorder) [facility] Center Seizure (finding) Resolved Problem 07/29/2015 [facility] [place] [facility] EPILEPSY, UNSP, NOT Active [facility] INTRACTABLE, WITH Fl dical ST Center LOCAL-REL SYMPTC Active [facility] EPI W CMPLX PART Med ical SEIZ, Center NEOPLASM OF Active [facility] UNSPECIFIED Medical BEHAVIOR OF BRAI Linh ter 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 [facility] Medications Medication Details Route Status Patient Ordering Order Source Instructions Provider Date dexamethasone 4 See Active 05/28/ [facility] mg oral tablet Instructions, 8 2015 M edical mg PEG Q12 (end Center date 06/01) 8 mg QAM and 4 mg QHS for 1 week 4 mg PEG Q12 for 1 week 4 mg PEG daily for 1 week then resume hydrocortisone 15 mg PEG QAM and 5 mg PEG QPM (home regimen), 0 Refill(s) sertraline 100 100 mg = 1 tab, Active H [place] mg oral tablet PEG, Daily, 0 2015 Med ical Refill(s) [place]te levothyroxine 125 microgram = Active [place] 125 mcg (0.125 1 tab, PEG, 2016 Medic al mg) oral tablet Daily, 0 Center Refill(s) Levetiracetam 1,000 mg = 10 Active [place] 100 MG/ML Oral mL, PEG, Q12H, 0 2015 Medical Solution Refill(s) [place] [Keppra] lamotrigine 200 400 mg = 2 tab, Active [place] MG Oral Tablet PEG, BID, 0 2015 Medic al Refill(s) [place] Clonazepam 0.5 0.5 mg = 1 tab, Active H [place] MG Oral Tablet PEG, BID, 0 2015 Medic al Refill(s) [place] pantoprazole 40 40 mg = 1 pkt, Active H [place] mg oral granule PEG, Daily, 0 2015 Me dical Refill(s) [place] gabapentin 50 300 mg = 6 mL, Active [place] MG/ML Oral PEG, Q8H, 0 2015 Medical Solution Refill(s) [place] Imodium A-D Notes: (Same as: Inactive [facility] Imodium) 2016 [facility] Menthol 0.0044 Notes: (Same as: Inactive [place] MG/MG / Zinc Calmoseptine) 2015 Medic al Oxide 0.2 MG/MG [place] Topical Ointment [Calmoseptine Ointment] potassium Notes: (Same as: Inactive [place] chloride Potassium 2015 [facility] Chloride) [place] Protonix 40 mg, 1 pkt, [place] Route: PEG, Drug Active 2015 Medical form: GRAN/REC, Center Daily, Dosing Weight 76.818, kg, Start date: 05/27/15 9:00:00, Duration: 30 day, Stop date: 06/25/15 9:00:00 Thyroxine 125 microgram, 1 No Longer Denny tab, Route: PEG, Active 2015 Medical Drug form: TAB, Center Q630AM, Dosing Weight 76.818, kg, Start date: 05/27/15 6:30:00, Duration: 30 day, Stop date: 06/25/15 6:30:00 Dexamethasone 8 mg, 2 tab, No Longer [place]enny Route: PEG, Drug Active 2015 Medical form: TAB, Q12H, Center Dosing Weight 76.818, kg, Start date: 05/26/15 21:00:00, Duration: 30 day, Stop date: 06/25/15 9:00:00 Levetiracetam Notes: Same as: No Longer [place] 100 MG/ML Oral Keppra Active 2015 [facility] Center [Keppra] gabapentin 300 Notes: (Same as: No Longer [place] MG Oral Capsule Neurontin) Active 2015 Medic al Center Acetaminophen 100.4 F, Start No Longer Denny date: 05/26/15 Active 2016 Medical 15:38:00, Center Duration: 30 day, Stop date: 06/25/15 15:37:00 Zofran Notes: (Same as: No Longer Dain osorio Zofran) Active 2015 Medical MEDICATION WASTE Center Product Size: 4 mg Product Wasted: 0 mg Glucose 50 MG/ML 1,000 mL, Rate: Inactive Denny / Sodium 75 ml/hr, Infuse 2015 Medica l Chloride 0.154 over: 13.3 hr, Ce nter MEQ/ML Route: IV, Injectable Dosing Weight Solution 76.818 kg, Total Volume: 1,000, Start date: 05/26/15 5:57:00, Duration: 30 day, Stop date: 06/25/15 5:56:00 Gastrografin Notes: WASTE: Inactive [place] F/P - Black; E - 2016 [facility] Bin Flagyl Notes: (Same as: [place] Flagyl) Avoid Active 2015 Medical alcohol. Center 200 ML Notes: Do not No Longer Denny Ciprofloxacin 2 refrigerate Active 2016 Medi mesha MG/ML Injection Center Thyroxine Notes: (Same as: No Longer [place] Synthroid) Active 2015 [facility] Keppra Notes: Same as [place] Kepp[place] Mix with Active 2015 Medical 100 mL NS, LR or Center D5W MEDICATION WASTE Product Size: 500 mg Product Wasted: ___ mg Dexamethasone Notes: No Longer [place] Concentration: Active 2015 Medical 4mg/ml Center Protonix Notes: (Same as: No Longer [place] Protonix) Active 2015 [facility] Dexamethasone Notes: Give with Inactive [place] food. (Same As: 2015 Medical Decadron) Center Morphine Notes: (Same No Longer [place] as:MORPhine Active 2015 Medical Sulfate) Center Clindamycin Notes: No Longer [place] (clindamycin 150 Active 2015 Medical mg/1 ml (600 Center mg/4 ml VL) INJ) (Same As: Cleocin) D5NS 1,000 mL 1,000 mL, Rate: No Longer [place] 75 ml/hr, Infuse Active 2015 Medical over: 13.3 hr, Center Route: IV, Dosing Weight 76.818 kg, Total Volume: 1,000, Start date: 05/23/15 13:42:00, Duration: 30 day, Stop date: 06/22/15 13:41:00 Iohexol Notes: (Same No Longer [place] as:Omnipaque Active 2015 Medical 350). Center Dexamethasone Notes: Give with No Longer [place] food. Active 2015 [facility] clindamycin Notes: (Same As: No Longer H [place] Cleocin) Active 2015 [facility] Clindamycin Notes: (Same As: Inactive [place] Cleocin) 2016 [facility] docusate Notes: (Same as: No Longer [place] Colace) Active 2015 [facility] docusate Notes: (Same as: [place] Colace) 2016 [facility] Dexamethasone Notes: Give with No Longer [place] food. Active 2015 [facility] Docusate Sodium Notes: (Same as: No Longer 05/18 [place] 100 MG Oral Colace) (Do Not Active 2015 Medi mesha Capsule [Colace] Crush) Center Dulcolax Notes: (Same As: No Longer [place] Laxative Dulcolax, Active 2015 Medical Bisco-Lax) Center senna 8.6 mg Notes: (Same as: No Longer [place] oral tablet Senokot) Active 2016 Medical Center Acetaminophen Notes: (Same as: No Longer [place] 325 MG / [place] 325/5) Do Active 2015 Medica l Hydrocodone not exceed Center Bitartrate 5 MG 4gm/day of Oral Tablet acetaminophen. [[place] 5/325] Multihance 529 Notes: Same as No Longer [place] mg/mL Multihance Active 2015 [facility] Center Keppra Notes: Same as [place]er [place] Kepp[place] Mix with Active 2015 Medical 100 mL NS, LR or Center D5W MEDICATION WASTE Product Size: 500 mg Product Wasted: ___ mg Ativan Notes: (Same as: [place] Ativan) Active 2015 [facility] Center Ketorolac 4 days No Longer Par[place] as MEDICATION WASTE Active 2015 Medical Product Center Size: 30 mg Product Wasted: ___ mg Versed 2 mg, Route: Inactive [place] IVP, ONCE, 2016 Medical Dosing Weight Center 76.818, kg, PRN Anxiety, Start date: 05/14/15 14:56:00, Stop date: 06/13/15 14:55:00 Versed Notes: (Same as: No Longer [place] Versed) Active 2015 Medical MEDICATION WASTE Center Product Size: 2 mg Product Wasted: ___ mg potassium Notes: (Same as: Inactive [place] phosphate + K Phosphate.) 1 2015 Med ical Sodium Chloride mMol phoshate Ce nter 0.9% IV 250 mL has 1.47 mEq potassium Infuse over 4 hours NS 1,000 mL 1,000 mL, Rate: No Longer [place] 75 ml/hr, Infuse Active 2015 [facility] over: 13.3 hr, Center Route: IV, Dosing Weight 76.818 kg, Total Volume: 1,000, please start when NPO, Start date: 05/14/15 0:00:00, Duration: 30 day, Stop date: 06/12/15 23:59:00 Dexamethasone Notes: [place] MEDICATION WASTE Active 2015 Medical Product Center Size: 10 mg Product Wasted: ___ mg Pepcid Notes: (Same as: [place] Pepcid) Active 2015 [facility] Dexamethasone Notes: [place] MEDICATION WASTE Active 2015 Medical Product Center Size: 10 mg Product Wasted: ___ mg Docusate Notes: (Same as: No Longer [place] Colace) Active 2015 [facility] Hydrocortisone Notes: (Same as: No Longer [place] Cortef) Active 2015 [facility] Magnesium 2 gm, 50 mL, Inactive [place] Sulfate Route: IVPB, 2015 Medical Drug form: INJ, Center ONCE, Dosing Weight 76.818, kg, Total dose = 2 gm, Start date: 05/12/15 13:20:00, Duration: 1 doses or times, Stop date: 05/12/15 13:20:00 Dexamethasone Notes: Inactive [place] as MEDICATION WASTE 2015 Medical Product Center Size: 10 mg Product Wasted: ___ mg Hydrocortisone Notes: (Same as: No Longer [place] Cortef) Active 2015 [facility] Multihance 529 Notes: Same as No Longer [place] mg/mL Multihance Active 2015 [facility] Hydrocortisone Notes: (Same as: Inactive [place] Cortef) 2016 [facility] Ativan Notes: (Same as: Inactive [place] as Ativan) 2016 [facility] normal saline 1,000 mL, Rate: No Longer [place] 0.9% IV 1,000 mL 75 ml/hr, Infuse Active 2015 Medical over: 13.3 hr, Center Route: IV, Dosing Weight 76.818 kg, Total Volume: 1,000, Start date: 05/11/15 16:24:00, Duration: 30 day, Stop date: 06/10/15 16:23:00 Ativan Notes: (Same as: Inactive [place] as Ativan) 2016 [facility] Versed 2 mg, Route: IM, Inactive [place]th as ONCE, Dosing 2016 Medical Weight 76.818, Center kg, Start date: 05/11/15 11:27:00, Stop date: 05/11/15 11:27:00 Versed Notes: (Same as: [place] Versed) Active 2016 [facility] lamotrigine 200 400 mg = 2 tab, No Longer [place] MG Oral Tablet PO, BID Active 2016 [facility] lamotrigine 200 Notes: (Same No Longer [place] MG Oral Tablet as:LaMICtal) Active 2015 [facility] Thyroxine Notes: Take 1 No Longer Parth as hour before or 2 Active 2015 [facility] hours after Juliette meal; Enteral feeds may interefere with the absorption of this medication. (Same as:Levothroid) Sertraline Notes: (Same as: No Longer [facility] Zoloft) Active 2015 [facility] Levetiracetam Notes: (Same No Longer [place] 1000 MG Oral as:Keppra) Active 2015 [facility] Clonazepam Notes: (Same As: No Longer [facility] KlonoPIN) Active 2016 [facility] pneumococcal Notes: (Same as: Inactive [facility] capsular Pneumovax 23) 2015 [facility] polysaccharide Refrigerate Cente r type 1 vaccine / pneumococcal capsular polysaccharide type 10A vaccine / pneumococcal capsular polysaccharide type 11A vaccine / pneumococcal capsular polysaccharide type 12F vaccine / pneumococcal capsular polysacchar heparin sodium, Notes: porcine No Longer [facility] porcine 2500 heparin Active 2015 [facility] Injectable Solution Versed Notes: (Same as: [place] Versed) Active 2015 Medical MEDICATION WASTE Center Product Size: 2 mg Product Wasted: _1__ mg Saline Flush Notes: (Same as: No Longer [facility] 0.9% BD Posiflush) Active 2015 [facility] Acetaminophen 1,000 mg = 2 No Longer [place] 500 MG Oral tab, PO, Q4H, Active 2015 Medica l Tablet [Tylenol] PRN Pain, # 120 Center tab, 0 Refill(s) Saline Flush Notes: (Same as: No Longer [place] 0.9% BD Posiflush) Active 2016 [facility] lamotrigine 200 See No Longer Parth as MG Oral Tablet Instructions, 1 Active 2015 edical tab PO Daily, 1 Center Refill(s) levothyroxine 125 microgram = No Longer [facility] 125 mcg (0.125 1 tab, PO, Active 2015 Medica l mg) oral tablet Daily, # 30 tab, Center 0 Refill(s) clonazePAM 0.5 0.5 mg = 1 tab, No Longer [facility] mg oral tablet PO, BID, # 30 Active 2015 Med ical tab, 0 Refill(s) Center sertraline 100 100 mg = 1 tab, No Longer [facility] mg oral tablet PO, Daily, # 30 Active 2015 edical tab, 0 Refill(s) Center Levetiracetam 1,000 mg = 1 No Longer [facility] 1000 MG Oral tab, PO, BID, # Active 2015 Med ical Tablet 30 tab, 0 Center Refill(s) Allergies, Adverse Reactions, Alerts Substance Category Reaction Severity Reaction Status Date Comments S ource type Reported penicillins Assertion Drug Active [facility] [place] seafood Assertion Drug Active [facility] as allergy [facility] iodine Assertion Drug Active [facility] as topical allergy [facility] Immunizations Immunization Date Given Site Status Last Comments Source Updated pneumococcal 05/11/2015 Right completed Iyamu Parth as 23-valent vaccine Deltoid Fl dical Center Results Order Name Results Value Reference Date Interpretation Comments Delfina rce Range CHEM PANEL eGFR 96 07/04 Result Comment: The Medical eGFR is Center calculated using the CKD-EPI formula. In most young, healthy individuals the eGFR will be >90 mL/min/1.73m2 . The eGFR declines with age. An eGFR of 60-89 may be normal in some populations, particularly the elderly, for whom the CKD-EPI formula has not been extensively validated. Use of the eGFR is not recommended in the following populations:< br/>
Alondra viduals with unstable creatinine concentration s, including patients and those with serious co-morbid conditions.<b r/>
Patie nts with extremes in muscle mass or diet.

The data above are obtained from the National Kidney Disease Education Program (NKDEP) which additionally recommends that when the eGFR is used in patients with extremes of body mass index for purposes of drug dosing, the eGFR should be multiplied by the estimated BMI. CHEM PANEL Calcium Lvl 8.1 8.5 - 10.5 07/04 [facility] CHEM PANEL CO2 26 24 - 32 07/04 [facility] CHEM PANEL Creatinine 0.77 0.50 - 07/04 [facility] Lvl 1.40 [facility] CHEM PANEL BUN 3 7 - 22 07/04 [facility] CHEM PANEL Potassium Lvl 3.1 3.5 - 5.1 07/04 [facility] CHEM PANEL Sodium Lvl 143 135 - 145 07/04 [facility] CHEM PANEL Glucose Lvl 116 70 - 99 07/04 [facility] CHEM PANEL Chloride Lvl 108 95 - 109 07/04 [facility] CHEM PANEL AGAP 12.1 10.0 - 07/04 20.0 [facility] HEMATOLOGY Plt Morph Normal 07/04 [facility] (07/05/15 3:46 PM) [facility] HEMATOLOGY Tot Cell Ct 100 07/04 [facility] HEMATOLOGY Atypical 0.0 <=0.0 % 07/04 [facility] Lymph [facility] HEMATOLOGY RBC Morph Normal 07/04 [facility] (07/05/15 3:46 PM) [facility] HEMATOLOGY Lymphocytes 40.0 20.0 - 07/04 40.0 [facility] HEMATOLOGY Monocytes 4.0 2.0 - 12.0 07/04 [facility] HEMATOLOGY Segs-Bands # 3.5 1.5 - 8.1 07/04 [facility] HEMATOLOGY Lymphocytes # 2.5 1.0 - 5.5 07/04 [place] [facility] HEMATOLOGY Monocytes # 0.2 0.0 - 0.8 07/04 [facility] HEMATOLOGY Segs 56.0 45.0 - 07/04 [place] 75.0 [facility] HEMATOLOGY Bands 0.0 0.0 - 11.0 07/04 [facility] HEMATOLOGY RDW 15.8 11.5 - 03 [place] 14.5 [facility] HEMATOLOGY MPV 6.9 7.4 - 10.4 07/04 [facility] HEMATOLOGY Platelet 357 133 - 450 07/04 [facility] HEMATOLOGY MCV 83.1 80.0 - 07/04 [place] 98.0 /2015 [facility] HEMATOLOGY RBC 3.91 4.20 - 07/04 [place] 5.40 /2015 [facility] HEMATOLOGY WBC 6.2 3.7 - 10.4 07/04 [facility] HEMATOLOGY Hct 32.5 36.0 - 07/04 [place] 48.0 /2015 [facility] HEMATOLOGY Hgb 10.8 12.0 - 07/04 [place] 16.0 /2015 [facility] HEMATOLOGY MCHC 33.2 32.0 - 07/04 [place] 36.0 /2015 [facility] HEMATOLOGY MCH 27.6 27.0 - 07/04 [place] 31.0 [facility] URINE AND UA Leuk Est Negative Negative 07/04 [facility] STOOL (07/05/15 3:19 PM) /2015 [facility] URINE AND UA Nitrite Negative Negative 07/04 [facility] (07/05/15 3:19 PM) [facility] URINE AND UA 0.2 0.1 - 1.0 07/04 [facility] Urobilinogen /2015 [facility] URINE AND UA Blood Negative Negative 07/04 [facility] (07/05/15 3:19 PM) [facility] URINE AND UA Bili Negative Negative 07/04 [facility] *NA* /2015 [facility] (07/05/15 3:19 PM) [place]te URINE AND UA Ketones Negative Negative 07/04 [facility] mg/dL mg/dL /2015 [facility] URINE AND UA Glucose Negative Negative 07/04 [facility] STOOL mg/dL mg/dL /2015 [facility] URINE AND UA Protein Negative Negative 07/04 [facility] mg/dL mg/dL /2015 [facility] URINE AND UA pH 7.0 5.0 - 8.0 07/04 [facility] STOOL [facility] URINE AND UA Spec Grav 1.015 <=1.030 07/04 [facility] STOOL /2015 [facility] URINE AND UA Turbidity Clear Clear 07/04 [facility] STOOL (07/05/15 3:19 PM) [facility] URINE AND UA Color Yellow Yellow 07/04 [facility] STOOL *NA* /2015 [facility] (07/05/15 3:19 PM) Juliette URINE AND UA Sq Epi None Seen Few 07/04 [facility] STOOL (07/05/15 3:19 PM) [facility] CHEM PANEL eGFR 93 05/27 Result Comment: The Medical eGFR is Center calculated using the CKD-EPI formula. In most young, healthy individuals the eGFR will be >90 mL/min/1.73m2 . The eGFR declines with age. An eGFR of 60-89 may be normal in some populations, particularly the elderly, for whom the CKD-EPI formula has not been extensively validated. Use of the eGFR is not recommended in the following populations:< br/>
Alondra viduals with unstable creatinine concentration s, including patients and those with serious co-morbid conditions.<b r/>
Patie nts with extremes in muscle mass or diet.

The data above are obtained from the National Kidney Disease Education Program (NKDEP) which additionally recommends that when the eGFR is used in patients with extremes of body mass index for purposes of drug dosing, the eGFR should be multiplied by the estimated BMI. CHEM PANEL Potassium Lvl 3.3 3.5 - 5.1 05/27 [place] [facility] CHEM PANEL Sodium Lvl 142 135 - 145 05/27 [facility] CHEM PANEL Creatinine 0.80 0.50 - 05/27 [facility] Lvl 1.40 [facility] CHEM PANEL Calcium Lvl 8.6 8.5 - 10.5 05/27 [facility] CHEM PANEL CO2 27 24 - 32 05/27 [facility] CHEM PANEL AGAP 13.3 10.0 - 05/27 20.0 [facility] CHEM PANEL Chloride Lvl 105 95 - 109 05/27 [facility] CHEM PANEL Glucose Lvl 93 70 - 99 05/27 [facility] CHEM PANEL BUN 14 7 - 22 05/27 [facility] CHEM PANEL Bili Total 0.3 0.2 - 1.3 05/27 [facility] CHEM PANEL Globulin 3.3 2.0 - 4.0 05/27 [facility] CHEM PANEL Bili Direct 0.1 0.0 - 0.3 05/27 [facility] CHEM PANEL Alk Phos 190 39 - 136 05/27 [facility] CHEM PANEL AST 31 0 - 37 05/27 [facility] CHEM PANEL Albumin Lvl 3.4 3.5 - 5.0 05/27 [facility] CHEM PANEL ALT 112 0 - 65 05/27 [facility] CHEM PANEL Bili Indirect 0.2 0.0 - 1.0 05/27 [facility] CHEM PANEL A/G Ratio 1.0 0.7 - 1.6 05/27 [facility] CHEM PANEL Total Protein 6.7 6.4 - 8.4 05/27 [facility] CHEM PANEL A/G Ratio 0.9 0.7 - 1.6 05/25 [facility] CHEM PANEL Globulin 3.8 2.0 - 4.0 05/25 [facility] CHEM PANEL AGAP 11.1 10.0 - 05/25 20. [facility] CHEM PANEL B/C Ratio 23 6 - 25 05/25 [facility] CHEM PANEL eGFR 105 05/25 [facility] Comment: The [facility] eGFR is Center calculated using the CKD-EPI formula. In most young, healthy individuals the eGFR will be >90 mL/min/1.73m2 . The eGFR declines with age. An eGFR of 60-89 may be normal in some populations, particularly the elderly, for whom the CKD-EPI formula has not been extensively validated. Use of the eGFR is not recommended in the following populations:< br/>
Alondra viduals with unstable creatinine concentration s, including patients and those with serious co-morbid conditions.<b r/>
Patie nts with extremes in muscle mass or diet.

The data above are obtained from the National Kidney Disease Education Program (NKDEP) which additionally recommends that when the eGFR is used in patients with extremes of body mass index for purposes of drug dosing, the eGFR should be multiplied by the estimated BMI. CHEM PANEL Chloride Lvl 108 95 - 109 05/25 [facility] CHEM PANEL Creatinine 0.71 0.50 - 05/25 [facility] Lvl 1.40 [facility] CHEM PANEL Potassium Lvl 4.1 3.5 - 5.1 05/25 [facility] CHEM PANEL CO2 24 24 - 32 05/25 [facility] CHEM PANEL Sodium Lvl 139 135 - 145 05/25 [facility] CHEM PANEL Albumin Lvl 3.3 3.5 - 5.0 05/25 [facility] CHEM PANEL ALT 187 0 - 65 05/25 [facility] CHEM PANEL AST 50 0 - 37 05/25 [facility] CHEM PANEL Calcium Lvl 8.2 8.5 - 10.5 05/25 [facility] CHEM PANEL Total Protein 7.1 6.4 - 8.4 05/25 [facility] CHEM PANEL Bili Total 0.4 0.2 - 1.3 05/25 [facility] CHEM PANEL Alk Phos 238 39 - 136 05/25 [facility] CHEM PANEL Glucose Lvl 111 70 - 99 05/25 2015 [facility] CHEM PANEL BUN 16 7 - 22 05/25 [facility] HEMATOLOGY Lymphocytes 14.9 20.0 - 05/25 [place] 40.0 [facility] HEMATOLOGY Monocytes 3.4 2.0 - 12.0 05/25 [facility] HEMATOLOGY Eosinophils 0.1 0.0 - 4.0 05/25 [facility] HEMATOLOGY Basophils 0.2 0.0 - 1.0 05/25 [facility] HEMATOLOGY Lymphocytes # 1.3 1.0 - 5.5 05/25 [facility] HEMATOLOGY Monocytes # 0.3 0.0 - 0.8 05/25 [facility] HEMATOLOGY Segs-Bands # 6.9 1.5 - 8.1 05/25 [facility] HEMATOLOGY Segs 81.4 45.0 - 05/25 [place] 75.0 [facility] HEMATOLOGY RBC 4.66 4.20 - 05/25 [place] 5.40 /2015 [facility] HEMATOLOGY Hct 39.4 36.0 - 05/25 [place] 48.0 [facility] HEMATOLOGY Hgb 13.1 12.0 - 05/25 [place] 16.0 /2016 [facility] HEMATOLOGY WBC 8.5 3.7 - 10.4 05/25 [facility] HEMATOLOGY MCHC 33.2 32.0 - 05/25 [facility] [place] 36.0 [facility] [facility] HEMATOLOGY MCH 28.1 27.0 - 05/25 [facility] 31.0 [facility] HEMATOLOGY MCV 84.5 80.0 - 05/25 [facility] 98.0 [facility] HEMATOLOGY MPV 7.8 7.4 - 10.4 05/25 [facility] HEMATOLOGY Platelet 328 133 - 450 05/25 [facility] HEMATOLOGY RDW 15.9 11.5 - 05/25 [place] 14.5 [facility] CHEM PANEL ALT 266 0 - 65 05/24 [facility] CHEM PANEL A/G Ratio 1.0 0.7 - 1.6 05/24 [facility] CHEM PANEL AST 96 0 - 37 05/24 [facility] CHEM PANEL Calcium Lvl 9.1 8.5 - 10.5 05/24 [facility] CHEM PANEL Alk Phos 289 39 - 136 05/24 [facility] CHEM PANEL Bili Total 0.6 0.2 - 1.3 05/24 [facility] CHEM PANEL eGFR 83 05/24 Result Comment: The Medical eGFR is Center calculated using the CKD-EPI formula. In most young, healthy individuals the eGFR will be >90 mL/min/1.73m2 . The eGFR declines with age. An eGFR of 60-89 may be normal in some populations, particularly the elderly, for whom the CKD-EPI formula has not been extensively validated. Use of the eGFR is not recommended in the following populations:< br/>
Alondra viduals with unstable creatinine concentration s, including patients and those with serious co-morbid conditions.<b r/>
Patie nts with extremes in muscle mass or diet.

The data above are obtained from the National Kidney Disease Education Program (NKDEP) which additionally recommends that when the eGFR is used in patients with extremes of body mass index for purposes of drug dosing, the eGFR should be multiplied by the estimated BMI. CHEM PANEL Total Protein 7.4 6.4 - 8.4 05/24 [place] [facility] CHEM PANEL B/C Ratio 25 6 - 25 05/24 [facility] CHEM PANEL Albumin Lvl 3.7 3.5 - 5.0 05/24 [facility] CHEM PANEL AGAP 15.6 10.0 - 05/24 [place] 20.0 [facility] CHEM PANEL Globulin 3.7 2.0 - 4.0 05/24 [facility] CHEM PANEL Creatinine 0.87 0.50 - 05/24 [place] Lvl 1.40 [facility] CHEM PANEL CO2 22 24 - 32 05/24 2015 [facility] CHEM PANEL Chloride Lvl 103 95 - 109 05/24 [facility] CHEM PANEL Potassium Lvl 3.6 3.5 - 5.1 05/24 [facility] CHEM PANEL Sodium Lvl 137 135 - 145 05/24 [facility] CHEM PANEL BUN 22 7 - 22 05/24 [facility] CHEM PANEL Glucose Lvl 140 70 - 99 05/24 [facility] HEMATOLOGY Basophils # 0.1 0.0 - 0.2 05/24 [facility] HEMATOLOGY Segs 81.5 45.0 - 05/24 [place] 75.0 [facility] HEMATOLOGY Monocytes # 0.7 0.0 - 0.8 05/24 [facility] HEMATOLOGY Segs-Bands # 11.3 1.5 - 8.1 05/24 [facility] HEMATOLOGY Basophils 0.5 0.0 - 1.0 05/24 [facility] HEMATOLOGY Lymphocytes # 1.7 1.0 - 5.5 05/24 [facility] HEMATOLOGY Lymphocytes 12.4 20.0 - 05/24 [place] 40.0 [facility] HEMATOLOGY Eosinophils 0.4 0.0 - 4.0 05/24 [facility] HEMATOLOGY Monocytes 5.2 2.0 - 12.0 05/24 [facility] HEMATOLOGY MPV 8.1 7.4 - 10.4 05/24 [facility] HEMATOLOGY WBC 13.9 3.7 - 10.4 05/24 [facility] HEMATOLOGY RDW 15.6 11.5 - 05/24 14.5 [facility] HEMATOLOGY Platelet 387 133 - 450 05/24 [facility] HEMATOLOGY RBC 5.06 4.20 - 05/24 [place] 5.40 [facility] HEMATOLOGY MCHC 32.2 32.0 - 05/24 [place] 36.0 /[facility] HEMATOLOGY MCH 26.5 27.0 - 05/24 [place] 31.0 /2016 [facility] HEMATOLOGY Hct 41.6 36.0 - 05/24 [place] 48.0 /2016 [facility] HEMATOLOGY MCV 82.1 80.0 - 05/24 [place] 98.0 /2016 [facility] HEMATOLOGY Hgb 13.4 12.0 - 05/24 [place] 16.0 /2015 [facility] HEMATOLOGY RDW 15.5 11.5 - 05/23 [place] 14.5 /2016 [facility] HEMATOLOGY MCHC 33.2 32.0 - 05/23 [place] 36.0 /2015 [facility] HEMATOLOGY MPV 7.7 7.4 - 10.4 05/23 [facility] HEMATOLOGY Platelet 384 133 - 450 05/23 [facility] HEMATOLOGY WBC 11.3 3.7 - 10.4 05/23 [facility] HEMATOLOGY MCV 82.5 80.0 - 05/23 [place] 98.0 [facility] HEMATOLOGY MCH 27.4 27.0 - 05/23 [place] 31.0 [facility] HEMATOLOGY RBC 5.00 4.20 - 05/23 [place] 5.40 /2015 [facility] HEMATOLOGY Hct 41.3 36.0 - 05/23 [place] 48.0 /2016 [facility] HEMATOLOGY Hgb 13.7 12.0 - 05/23 [place] 16.0 [facility] HEMATOLOGY Segs-Bands # 7.8 1.5 - 8.1 05/23 [place] [facility] HEMATOLOGY Lymphocytes # 2.5 1.0 - 5.5 05/23 [place] [facility] HEMATOLOGY Segs 67.0 45.0 - 05/23 [place] 75.0 2016 [facility] HEMATOLOGY Monocytes # 0.6 0.0 - 0.8 05/23 [place] [facility] HEMATOLOGY Monocytes 5.0 2.0 - 12.0 05/23 [facility] HEMATOLOGY Myelocytes 3.0 <=0.0 % 05/23 [facility] HEMATOLOGY Metamyelocyte 1.0 0.0 - 1.0 05/23 [place] [facility] HEMATOLOGY RBC Morph Normal 05/23 [facility] (05/23/15 3:17 PM) [facility] HEMATOLOGY Plt Morph Normal 05/23 [facility] (05/23/15 3:17 PM) /2015 [facility] HEMATOLOGY Atypical 0.0 <=0.0 % 05/23 [facility] Lymph [facility] HEMATOLOGY Bands 2.0 0.0 - 11.0 05/23 [facility] HEMATOLOGY Lymphocytes 22.0 20.0 - 05/23 [place] 40.0 [facility] HEMATOLOGY Tot Cell Ct 100 05/23 [facility] CHEM PANEL B/C Ratio 33 6 - 25 05/23 [facility] HEMATOLOGY Basophils 0.5 0.0 - 1.0 05/21 [facility] HEMATOLOGY Basophils # 0.1 0.0 - 0.2 05/21 [facility] HEMATOLOGY Eosinophils 0.3 0.0 - 4.0 05/21 [facility] CHEM PANEL Magnesium Lvl 2.4 1.8 - 2.4 05/15 [facility] xa [facility] CHEM PANEL Phosphorus 1.7 2.5 - 4.5 05/15 [facility] HEMATOLOGY Plt Morph Normal 05/15 [facility] (05/15/15 4:27 AM) /2015 [facility] HEMATOLOGY RBC Morph Normal 05/15 [facility] (05/15/15 4:27 AM) /2015 [facility] HEMATOLOGY INR 1.24 0.85 - 05/15 [facility] 1.17 [facility] HEMATOLOGY PT 15.9 12.0 - 05/15 [facility] 14.7 [facility] CHEM PANEL Magnesium Lvl 2.2 1.8 - 2.4 05/14 [facility] xa [facility] CHEM PANEL Phosphorus 2.1 2.5 - 4.5 05/14 [facility] ENDOCRINOLOG Cortisol Free <0.03 05/13 [place] Comment: Medical
Adult Center Reference Ranges for Cortisol, Free,
LC/MS/MS:<br/ >
8:00 - 10:00 AM 0.07-0.93 mcg/dL
4:00 - 6:00 PM 0.04-0.45 mcg/dL
10:00 - 11:00 PM 0.04-0.35 mcg/dL
Te st Performed at:
[facility]<br/ >[id number] [facility]
[place] [address] Jarad Moran MD, PhD CHEM PANEL Magnesium Lvl 2.2 1.8 - 2.4 05/13 [place] [facility] CHEM PANEL Phosphorus 3.2 2.5 - 4.5 05/13 [facility] HEMATOLOGY PT 17.0 12.0 - 05/13 [place] 14.7 [facility] HEMATOLOGY PTT 53.3 22.9 - 05/13 [place] 35.8 /2015 [facility] HEMATOLOGY INR 1.35 0.85 - 05/13 [facility] 1.17 [facility] HEMATOLOGY Polychrom slight 05/13 [facility] HEMATOLOGY Hypochrom 1+ None Seen 05/13 [facility] (05/13/15 3:21 AM) [facility] HEMATOLOGY Anisocyte 1+ None Seen 05/13 [place] *ABN* Medical (05/13/15 3:21 AM) Center HEMATOLOGY Eosinophils # 0.1 0.0 - 0.5 05/12 [place] [facility] DRUG SCREEN U Cannab Scr Negative Negative 05/12 [place] *NA* Medical (05/11/15 6:25 PM) Center DRUG SCREEN U Opiate Scr Negative Negative 05/12 [place] *NA* Medical (05/11/15 6:25 PM) Center DRUG SCREEN U Cocaine Scr Negative Negative 05/12 [place] *NA* Medical (05/11/15 6:25 PM) Center DRUG SCREEN U Phencyc Scr Negative Negative 05/12 [place] *NA* Medical (05/11/15 6:25 PM) Center DRUG SCREEN UDS Note See Note 05/12 [facility] (05/11/15 6:25 PM) /2015 [facility] Center DRUG SCREEN U Benzodia Positive Negative 05/12 [place] *ABN Medical (05/11/15 6:25 PM) Center DRUG SCREEN U Amph Scr Negative Negative 05/12 [place] *NA[place] [facility] (05/11/15 6:25 PM) Center DRUG SCREEN U Amanda Scr Negative Negative 05/12 [place] [facility] (05/11/15 6:25 PM) Center URINE AND UA Sq Epi None Seen 05/12 [facility] URINE AND UA RBC <1 0 - 2 05/12 [facility] URINE AND UA Mucus Few /LPF None Seen 05/12 [facility] STOOL /LPF /2015 [facility] URINE AND UA WBC 1 0 - 5 05/12 [facility] URINE AND UA Leuk Est Negative Negative 05/12 [facility] (05/11/15 6:25 PM) [facility] URINE AND UA pH 6.0 5.0 - 8.0 05/12 [facility] URINE AND UA Spec Grav 1.019 <=1.030 05/12 [facility] URINE AND UA Nitrite Negative Negative 05/12 [facility] (05/11/15 6:25 PM) [facility] URINE AND UA Blood Negative Negative 05/12 [facility] (05/11/15 6:25 PM) [facility] URINE AND UA 2.0 0.1 - 1.0 05/12 [facility] Urobilinogen /2015 [facility] URINE AND UA Ketones 60 mg/dL Negative 05/12 [facility] mg/dL [facility] URINE AND UA Bili Negative Negative 05/12 [facility] *NA* [facility] (05/11/15 6:25 PM) [place] URINE AND UA Protein 20 mg/dL Negative 05/12 [facility] mg/dL [facility] URINE AND UA Glucose Negative Negative 05/12 [facility] mg/dL mg/dL [facility] URINE AND UA Turbidity Clear Clear 05/12 [facility] (05/11/15 6:25 PM) [facility] URINE AND UA Color Yellow Yellow 05/12 [facility] *NA* /2015 [facility] (05/11/15 6:25 PM) Center URINE CHEM U Preg Negative Negative 05/12 [facility] (05/11/15 6:25 PM) [facility] ENDOCRINOLOG Cortisol Free 0.07 05/12 Result [place] osorio Y Comment: Medical
Adult Center Reference Ranges for Cortisol, Free,
LC/MS/MS:<br/ >
8:00 - 10:00 AM 0.07-0.93 mcg/dL
4:00 - 6:00 PM 0.04-0.45 mcg/dL
10:00 - 11:00 PM 0.04-0.35 mcg/dL
Te st Performed at:
[employer]<br/ >[id number] [facility]
[place] [address] Jarad Moran MD, PhD PARATHYROID Ca Norm WB 1.08 1.05 - 05/12 [facility] PROFILE 05.28 [facility] PARATHYROID Ca Ion WB 1.11 .05 - 05/12 [facility] PROFILE 05.28 [facility] TOXICOLOGY [place] Lvl 41 05/12 Result Comment: Medical Therapeutic Center Levels:
Drug Dosage Trough (mcg/mL) Peak (mcg/mL)
500 mg BID 3.1 - 10.0 10.0 - 25.0
1000 mg BID 4.9 - 37.1 30.0 - 40.0
1500 mg BID 7.0 - 34.0 36.1 - 70.0

Toxic level not established<b r/>Test Performed at:
[facility]
[employer], [address] [place] [address]
[place] [address] Som Purvis MD, FCAP HEMATOLOGY Basophils # 0.1 0.0 - 0.2 05/11 [facility] HEMATOLOGY Eosinophils # 0.2 0.0 - 0.5 05/11 [facility] TOXICOLOGY Lamotrigine 38.4 4.0 - 18.0 05/10 Result [facility] Comment: Test Medical Performed Center at:
[facility]
[employer], [address] [place] [address]
[place] [address] Som Purvis MD, FCAP HEMATOLOGY Eosinophils # 0.2 0.0 - 0.5 05/10 [facility] CHEM PANEL Lactic Acid 0.9 0.5 - 2.2 05/10 [facility] PARATHYROID Ca Norm WB 1.01 1.05 - 05/10 [facility] PROFILE 1. Medical Center PARATHYROID Ca Ion WB 0.98 1.05 - 05/10 [facility] PROFILE 05.28 [facility] TOXICOLOGY Lamotrigine 34.2 4.0 - 18.0 05/10 Result [facility] Comment: Test Medical Performed Center at:
[facility] [place]
[facility], [address] [place] [address]
[place] [address] Som Purvis MD, [facility]
Crit ical Result(s) called to JERRICA AKHTAR at _05/15/2015 17:38 by_CYTHOMAS. Read back OK.
Resul t Comment: Test Performed at:
[facility] [place]
[facility], [address] [place] [address]
[place] [address] Som Purvis MD, [facility] TOXICOLOGY [place] Lv 05/10 Result [facility] Comment: Medical Therapeutic Center Levels:
Drug Dosage Trough (mcg/mL) Peak (mcg/mL)
500 mg BID 3.1 - 10.0 10.0 - 25.0
1000 mg BID 4.9 - 37.1 30.0 - 40.0
1500 mg BID 7.0 - 34.0 36.1 - 70.0

Toxic level not established<b r/>Test Performed at:
[facility] [place]
[facility], [address] [place] [address]
[place] [address] Som Purvis MD, [facility] Pathology Reports No Data Provided for This Section Diagnostic Reports Report Value Date Source Brain-Outside Consult EXAM: CT BRAIN WITHOUT CONTRAST 07/05/2015 [facility] CT DATE: 07/05/2015 Center INDICATION: 2nd opinion consultation COMPARISON: MRI dated 06/01/2009 TECHNIQUE: Routine axial CT images of the brain were obtained FINDINGS: Numerous extra-axial masses in the anterior cranial fossa, left petroclival region, left middle cranial fossa, and bilateral parafalcine regions are again noted, consistent with the known history of men ingiomatosis. Areas of encep halomalacia in the right orbitofrontal gyri and in the left superior and middle frontal gyri are again demonstrated. There are bilateral craniotomies, unchanged as compared t o the previous exam. A ventr iculostomy catheter in the right atrium is again noted. The ventricular size is normal and stable. IMPRESSION: Stable postoperative changes , areas of encephalomalacia, and residual meningiomas in both cerebral hemispheres. I agree with the outside report. Foot series DX EXAM: FOOT 3 VIEWS 05/25/2015 [facility] DATE: Order Observation End Time: May 25, 2015 0 8:00:35 PM INDICATION: Pain. Pain and swelling TECHNIQUE: AP , lateral and oblique radiograph s of the left foot . COMPARISON: None available FINDINGS: No acute bony abno rmality is identified. Old avulsion fracture from the base of the fifth metatarsal seen. IMPRESSION: No acute bony abnormality identifie d. Abdomen AP DX EXAM: XR ABDOMEN 2 views 05/25/2015 [facility] DATE: 05/23/2015 at 16: 57. INDICATION: G-tube confirmation. ADDITIONAL INFORMATION: None. COMPARISON: 05/13/2015. TECHNIQUE: Supine films of the upper abdomen before and after injection of contrast via G-tube FINDINGS: [employer] film shows a shunt tub e is in the right side of the abdomen. A G-tube tip is in the midline. This gaseous distention of the colon without constipation all of these distal impaction but the rectum is not shown. Second film shows contrast i nto bleacher injected via the G-tube outlining the stomach and proximal duodenum. The balloon of the G-tube is note overlying the stomach and is presumed within a stretched p ortion of the stomach connec ting it to the skin or within the track connecting the stomach to the skin. There is no contrast leak seen on this film. If exact relationship between the G-tube and the lume n of the stomach is to be sh own, and lateral film during contrast injection is needed. IMPRESSION: 1. No leak of contrast pass IV GI tract seen during injection the NG tube into supine position although the tube is not obviously in the stomach. 2. If the G-tube position in relation to gastric lumen is to be shown, and lateral film during contrast injection is needed Wrist complete DX EXAM: XR RIGHT ELBOW 3 VIEWS 05/24/2015 [facility] EXAM: XR RIGHT FOREARM 2 VIEWS C enter EXAM: XR RIGHT WRIST 3 VIEWS DATE: 05/25/2015 at 0000 hours INDICATION: Pain and swelling. COMPARISON: Right humerus radiographs of 12/01/19. TECHNIQUE: AP, lateral and oblique radiographs of the right elbow, AP and lateral radiographs of the right forearm, PA, lateral and oblique radiographs of the right wrist DISCUSSION: No fracture, dis location or other acute bony abnormality is identified. There is no elbow joint effusion. Subcutaneous edema is most evident surrounding the elbow and ulnar aspect of the for earm, without subcutaneous emphysema or radiopaq ue foreign body. IMPRESSION: Diffuse soft tissue swelling withou t acute bony abnormality. Forearm 2 views DX EXAM: XR RIGHT ELBOW 3 VIEWS 05/24/2015 [facility] EXAM: XR RIGHT FOREARM 2 VIEWS C enter EXAM: XR RIGHT WRIST 3 VIEWS DATE: 05/25/2015 at 0000 hours INDICATION: Pain and swelling. COMPARISON: Right humerus radiographs of 12/01/19. TECHNIQUE: AP, lateral and oblique radiographs of the right elbow, AP and lateral radiographs of the right forearm, PA, lateral and oblique radiographs of the right wrist DISCUSSION: No fracture, dis location or other acute bony abnormality is identified. There is no elbow joint effusion. Subcutaneous edema is most evident surrounding the elbow and ulnar aspect of the for earm, without subcutaneous emphysema or radiopaq ue foreign body. IMPRESSION: Diffuse soft tissue swelling withou t acute bony abnormality. Elbow 3 views DX EXAM: XR RIGHT ELBOW 3 VIEWS 05/24/2015 [facility] EXAM: XR RIGHT FOREARM 2 VIEWS C enter EXAM: XR RIGHT WRIST 3 VIEWS DATE: 05/25/2015 at 0000 hours INDICATION: Pain and swelling. COMPARISON: Right humerus radiographs of 12/01/19. TECHNIQUE: AP, lateral and oblique radiographs of the right elbow, AP and lateral radiographs of the right forearm, PA, lateral and oblique radiographs of the right wrist DISCUSSION: No fracture, dis location or other acute bony abnormality is identified. There is no elbow joint effusion. Subcutaneous edema is most evident surrounding the elbow and ulnar aspect of the for earm, without subcutaneous emphysema or radiopaq ue foreign body. IMPRESSION: Diffuse soft tissue swelling withou t acute bony abnormality. 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 History of hypopituitarism. COMPARISON: None. TECHNIQUE: Helical acquisiti on of the abdomen and pelvis was obtained from the lung bases to the symphysis pubis without administration of oral contrast, intravenous contrast. Initial attempt to perform contrast-enhanced CT was ab orted due to infiltration of intravenous contrast into the right upper extremity earlier on the same date. Axial, sagittal and coronal images were interpreted. FINDINGS: Bibasilar subsegmental atele ctasis is present. The pleura and visualized portions of the heart and pericardium are clear. The liver, bile ducts, splee n, pancreas, and adrenals show no significant abnormalities. Cholelithiasis is present, without secondary signs to suggest acute cholecystitis. A PEG tube is present within the gastric body, with the balloon lying within the lumen of the stomach. There is mild surrounding fat stranding along the catheter extending to the ventral abdominal wall. Soft tissue stranding is al so present within the soft tissues about the site of the PEG tube. Visualized small bowel and colon have normal caliber. Note is made of two foci of dystrophic calcification s in the right lower quadran t (series 3/image 64), of unclear etiology. No mesenteric abnormalities. There is no free fluid or free air identified. The kidneys are symmetric in size, and demonstrate normal contour. There are no renal calculi or hydronephrosis identified. There is intravenous contrast from prior contrast examination within the renal collecting systems and the urinary bladder. Aorta and IVC have normal ca liber. Abdominal and pelvic lymph nodes are not enlarged. No retroperitoneal abnormalities. There is dextroscoliosis of the lumbar spine, with extensive degenerative changes worse at the level of L4-L5 and L5-S1. A ventriculoperitoneal shunt catheter is present with its tip lying within the lower abdomen. IMPRESSION: 1. PEG tube balloon lies wit hin the gastric body; however there is mild soft tissue stranding along the PEG tube catheter extending to the ventral abdominal wall, as well as within the intra-abdominal s oft tissues concerning for leakage of tube feeds /gastric contents. 2. Cholelithiasis is present , without secondary signs to suggest acute cholecystitis. Spine entire w/wo EXAMINATION: MRI entire spine with and w ithout contrast. 05/16/2015 [facility] DATE: 05/16/2015. INDICATION: Meningiomatosis. DISCUSSION: Multiplanar imaging of the e ntire spinal axis is performed both before and [...] or foraminal narrowing. At C3-C4, there is anterolis thesis, pseudobulging the disc, and scoliosis with convexity to the right area there is severe stenosis of the spinal canal with effacement of the anterior CSF space and flat tening and remodeling of and post cord contour associated with minimal volume loss in or severe narrowing of the left neural foramen and marked hypertrophy of the left-sided facet joint. At C4-C5, there is severe ca nal stenosis with an AP diameter 8 mm. There is diffuse bulging of the disc in combination with kyphosis and congenitally short pedicles. There is a loss of the CSF space ant eriorly and indentation of t he anterior cord contour with volume loss. There is moderate left-sided neural foraminal stenosis. At C5-C6, there is severe st enosis with mild canal with an AP diameter [...] patent. At C6-C7, there is a small c entral disc protrusion. There is severe stenosis the canal. There is chronic flattening and remodeling of both the anterior and posterior cord contour, and there is cord volume loss. The neural foramina are patent. The thoracic cord contour an d signal are normal. There is some exaggeration of the normal thoracic kyphosis, and there are are numerous levels of facet joint and ligamentum flavum hypertrophy which prod uce mild indentation on the posterior thecal sac contour without contacting or displacing the cord. There is a calcified gallstone in the gallbladde r. The distal cord and conus ar e unremarkable. The conus terminates at the thoracolumbar junction. The T12-L1 at L1-L2 disc levels are grossly unre markable. L2-L3, there is moderate can al stenosis secondary to short pedicles, diffuse disc bulging, and marked facet joint and interspinous ligament hypertrophy. There is moderate narrowing of both neural foramina. L3-L4, there is focal kyphos is and rotatory subluxation. There is diffuse disc osteophyte complex with severe stenosis of the canal and centralization of the nerve roots. Bilateral facet joint hypertrop hy is also present at this l evel associated with periarticular marrow edema. There is moderate severe bilateral foraminal narrowing. L4-L5, similar changes are p resent. There is kyphosis and dextroscoliotic curvature associated with diffuse disc bulging and disc degeneration. There is only moderate stenosis the canal but there is sev ere stenosis of the left sub articular zone and neural foramen and moderate severe stenosis the right neural foramen. L5-S1, there is a diffuse di sc bulge with a central disc protrusion. There is moderate stenosis the canal. Bilateral facet joint arthropathy is present. There is scoliosis with convexity to the right re sulting in severe narrowing of the left neural foramina and lateral recess area there is moderate stenosis the right neural foramen. IMPRESSION: No radiographic evidence of schwannoma or mening ioma in the spinal axis. 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 Dextroscoliotic and kyphotic curvatures in the lower lumbar levels associated with moderate canal stenosis and severe left-sided neural foraminal narrowing. Cholelithiasis. Ext Lower Venous EXAM: US BILATERAL LOWER EXTREMITY VENOUS DOPPL ER 05/15/2015 [facility] Doppler Bilat [facility] DATE: 05/15/2015. INDICATION: Lower extremity pain. ADDITIONAL INFORMATION: None. COMPARISON: None. TECHNIQUE: Multiplanar doris rohith, color Doppler and spectral Doppler ultrasound images of the bilateral lower extremity veins were obtained. FINDINGS: The bilateral common femoral , greater saphenous, superficial femoral, and popliteal veins demonstrate normal compressibility and color Doppler signal. IMPRESSION: 1. Negative for bilateral lower extremity deep v ein thrombosis. Esophagus BA swallow EXAM: FLUOROSCOPY MODIFIED BARIUM SWALLOW 0 05/14/2015 [facility] function video DX Center DATE: 05/14/2015 at 1117 INDICATION: Dysphagia ADDITIONAL INFORMATION: meni ngiomatosis s/p resection, epilepsy, blindness, hypopituitarism, and reduced hearing COMPARISON: None. TECHNIQUE: Oral barium cont rast of differing consistencies was given to the patient to assess swallowing mechanism. The study was performed in conjunction with speech pathology. FLUOROSCOPY TIME: 1 minute 30 seconds SKIN DOSE: 4.2 mGy FINDINGS: The patient was given barium contrast of different consistencies. The swallowing reflex is triggered in a delayed fashion with ineffective bolus propulsion. Thin barium with a straw: Th e oral and pharyngeal phases are abnormal, with bolus holding and tongue pumping with ineffective propulsion. There was deep penetration and silent aspiration observed during swallow. [place] barium with spoon: Th e oral and pharyngeal phases are also delayed. There was penetration and regurgitation observed during swallow. Pureed pudding barium with s kathryn: The oral and pharyngeal phases are delayed. There was penetration and regurgitation observed during swallow. IMPRESSION: 1. Penetration and asymptoma tic (silent) aspiration during the swallow w/ thin and nectar consistency barium. 2. Penetration and regurgitation with pured pud ding consistency barium. Abdomen AP DX EXAM: XR ABDOMEN 1 VIEW 05/13/2015 [facility] DATE: 05/13/2014 at 1425 hours. INDICATION: Tube placement/removal/reposition. ADDITIONAL INFORMATION: None. COMPARISON: 05/12/2014 at 1928 hours. TECHNIQUE: Limited radiogra phy of the abdomen performed. One frontal radiograph provided for interpretation. FINDINGS: Transesophageal feeding tube with guidewire has its tip in the pyloroduodenal junction. [employer] SAL[employer] REPRESENTATIVE shunt is unchanged. No other significant changes. IMPRESSION: 1. Tube positions as above. Interpreted by Brian Jordan MD. Abdomen AP DX Exam: Abdomen x-ray. 05/12/2015 [facility] DATE: 05/12/2015. INDICATIONS: Tube placement. FINDINGS: IMPRESSION: A Dobbhoff tube is seen with tip overlying the second portion of the duodenum. Brain w/wo contrast EXAMINATION: MRI brain with and without contrast. 05/11/2015 [facility] DATE: 05/11/2015. INDICATION: Meningiomatosis. Weakness. DISCUSSION: Multiplanar MRI imaging of t he brain is performed both before and after [...] h further displacement of the frontal and tempor al lobes respectively. The size the ventricular sys tem is increased over the comparison study, most notably in the third ventricular contour. There is dilatation of the temporal horns. Extra-axial spaces are similar or slightly enlarged over the interval. The shunt catheter remains i n place through the right parietal region with its tip in the midbrain. Areas of encephalomalacia in the left posterior lateral frontal lobe and right antra are inferior frontal lobe are again noted unchanged. Edema in the left temporal lobe possibly related to the adjacent meningioma in the middle cranial fossa is gross ly stable. IMPRESSION: Interval enlargement of the ventricular system, hydrocephalus versus interval volume loss. Interval diffuse progression of meningiomas. Brain wo contrast CT EXAMINATION: CT head without contrast. 12/2015 [facility] DATE: 05/11/2015. INDICATION: Weakness. DISCUSSION: Noncontrast images of the head are compared to a n MRI study dated 12/31/2007 Over the interval, there has been significant enlargement of the ventricular system. A shunt catheter entering the right parieto-occipital region with its tip near the tectum remains in place. The fourt h ventricle is probably also slightly increased in size relative to the comparison. Extra-axial masses in the le ft CP angle and anterior cranial fossa are grossly similar in size. Areas of encephalomalacia in the left MCA distribution and right inferior frontal region are also again noted. The over all quality the exam is high limited by motion artifact. IMPRESSION: Interval development of hydrocephalus, question shunt malfunction. Otherwise stable exam. Hip 2 views DX EXAM: BILATERAL HIP 2 VIEWS AND AP PELVIS 2015 [facility] DATE: May 10, 2015 01:25:00 PM INDICATION: Pain in limb COMPARISON: Right hip series 11/30/2008 TECHNIQUE: AP and frogleg l ateral radiographs of each hip and a single AP radiograph of the pelvis FINDINGS: No fracture, dislo cation or other acute bony abnormality is identified. Hip joint spaces are preserved. There are small bilateral acetabular osteophytes. No narrowing, sclerosis, or erosions of the pubic symphysis or sacroiliac joints. [employer] REPRESENTATIVE shunt tubing overlies the pelvis. IMPRESSION: No bony abnormality identified. Hip 2 views DX EXAM: BILATERAL HIP 2 VIEWS AND AP PELVIS 2015 [facility] DATE: May 10, 2015 01:25:00 PM INDICATION: Pain in limb COMPARISON: Right hip series 11/30/2008 TECHNIQUE: AP and frogleg l ateral radiographs of each hip and a single AP radiograph of the pelvis FINDINGS: No fracture, dislo cation or other acute bony abnormality is identified. Hip joint spaces are preserved. There are small bilateral acetabular osteophytes. No narrowing, sclerosis, or erosions of the pubic symphysis or sacroiliac joints. [employer] REPRESENTATIVE shunt tubing overlies the pelvis. IMPRESSION: No bony abnormality identified. Consultation Notes No Data Provided for This Section Discharge Summaries No Data Provided for This Section History and Physicals No Data Provided for This Section Vital Signs Vital Sign Value Date Comments Source Systolic (mm Hg) 100 07/06/2015 [facility] Diastolic (mm Hg) 59 07/06/2015 [facility] Respitory Rate 18 07/06/2015 [facility] Respitory Rate 18 07/06/2015 [facility] Systolic (mm Hg) 104 [facility] Diastolic (mm Hg) 70 07/06/2015 [facility] Temperature Oral (F) 97.4 F 07/05/2015 [facility] Systolic (mm Hg) 105 07/05/2015 [facility] Diastolic (mm Hg) 60 07/05/2015 [facility] Temperature Oral (F) 97.8 F 07/05/2015 [facility] Respitory Rate 18 07/05/2015 [facility] Heart Rate 84 07/05/2015 [facility] Heart Rate 73 05/28/2015 [facility] Temperature Oral (F) 99.5 F 05/28/2015 [facility] Systolic (mm Hg) 93 05/28/2015 [facility] Diastolic (mm Hg) 55 05/28/2015 [facility] Respitory Rate 18 05/28/2015 [facility] Heart Rate 52 [facility] Systolic (mm Hg) 101 05/28/2015 [facility] Diastolic (mm Hg) 54 05/28/2015 [facility] Respitory Rate 17 05/28/2015 [facility] Temperature Oral (F) 97.4 F 05/28/2015 [facility] Respitory Rate 18 05/28/2015 [facility] Heart Rate 54 05/28/2015 [facility] Systolic (mm Hg) 98 05/28/2015 [facility] Diastolic (mm Hg) 59 05/28/2015 [facility] Temperature Oral (F) 97.9 F 05/28/2015 [facility] Weight 76.818 05/10/2015 [facility] Height 165.1 cm 05/09/2015 [facility] Weight 81.818 05/09/2015 [facility] BMI Calculated 30.02 05/09/2015 [facility] Encounters Location Location Encounter Encounter Reason Attending ADM DC Stat us Source Details Type Number For Provider Date Date Visit [facility] [id number] Anmol 05/09 05/28 [facility] Kaci /2015 [facility] [place] [id number] Vilma 07/04 07/05 [facility] Mel[place] /2015 [facility] [id number] David 07/25 07/26 [facility] Serra /2015 [facility] Therapy [facility] Procedures Procedure Code Date Perfomer Comments Source Biopsy of breast [id number] [facility] 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 [id number] [facility] Excision of [id number] [facility] Assessment and Plan No Data Provided for This Section Plan of Care No Data Provided for This Section Social History Social History Date Source Social History [facility]09[facility] Smoking Status Never smoker; Ready to change: No; Candice rns about tobacco use in household: No; Exposure to Tobacco Smoke None; Cigarette Smoking Last 365 Days No; Reg Smoking Cessation Counseling No Family History No Data Provided for This Section Advance Directives No Data Provided for This Section Functional Status No Data Provided for This Section
--- OUTSIDE RECORDS SUMMARY | 2019-12-05 15:21 | XMS REPORT | Continuity of Care Document ---
:1975 Author Organization [facility] t Address [address] [place] [address] Care Team Providers Name Role Phone BERENICE Attending Clinician Unavailable RAJ Attending Clinician Unavailable VAMSI Attending Clinician Unavailable SYLVIE Attending Clinician Unavailable IZABEL Attending Clinician Unavailable Sherita THOMAS Attending Clinician [facility] Attending Clinician Unavailable ALFA Attending Clinician Unavailable JESENIA Attending Clinician Unavailable Meño Serra Attending Clinician Naye Melton Attending Clinician Courtney Martinez Attending Clinician Doctor Unassigned, Name Attending Clinician Unavailable Sam Frost Admitting Clinician Enio Clemons Admitting Clinician Problems Condition Condition Condition Status Onset Resolution Last Treating Co mments Source Name Details Category Date Date Treatment Clinician Date BRAIN Diagnosis Active 2015-07-05 Mem oria SHUNT NOT 3- 16:24:00 l DRAINING BRAIN 00:00: [place] SHUNT NOT 00 DRAINING Active 07/05/2015 [facility] MENINGIOMA Diagnosis Active 2015-07-26 Memoria CA 06-27 13:55:00 l 00:00: [place] MENINGIOMA 00 CA Active 6 [facility] PAIN Diagnosis Active 2015-05-09 Mem oria - 15:08:00 l PAIN 00:00: [place] 00 Active 05/09/2015 [facility] G40.901 Diagnosis Active 2015-05-09 Me fletcher - 15:09:00 l G40.901 00:00: [place] 00 Active 05/09/2015 [facility] G40.219 Diagnosis Active 2015-08-22 Me fletcher 05-09 09:47:00 l G40.219 00:00: Matty 00 Active 05/09/2015 [facility] History of History of Problem Resolve Univers Abnormal Abnormal d ity of tumor tumor [place] markers markers Physici ans History of History of Problem Resolve Univers blood blood d ity of product product [place] transfusio transfusio Ph ysici n n ans History of History of Problem Resolve Univers Depressive Depressive d it y of disorder disorder [place] Physici ans History of History of Problem Resolve Univers Epilepsy Epilepsy d ity of [place] Physici ans History of History of Problem Resolve Univers 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 [place] Physici ans Hypopituit Hypopituit Problem Active U nivers arism arism ity of [place] Physici ans History of History of Problem Resolve Univers streptococ streptococ d it y of mesha mesha [place] pharyngiti pharyngiti Ph ysici s s ans History of History of Problem Resolve Univers thyroid thyroid d ity of disease disease [place] Physici ans Anxiety Anxiety Problem Active Univers ity of [place] Physici ans Testicular Testicular Problem Active U nivers hypofuncti hypofuncti it y of on on [place] Physici ans Central Central Problem Active Univers perforatio perforatio it y of n of n of [place] tympanic tympanic Physic i membrane membrane ans Tinnitus Tinnitus Problem Active Unive rs ity of [place] Physici ans Urinary Urinary Problem Active Univers retention retention ity of with with [place] incomplete incomplete Ph ysici bladder bladder ans emptying emptying Hearing Hearing Problem Active Univers loss loss ity of [place] Physici ans Chronic Chronic Problem Active Univers tension-ty tension-ty it y of pe pe [place] headache, headache, Phys ici intractabl intractabl an s e e 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 ity of loss, loss, [place] bilateral bilateral Phys ici ans Low-set Low-set Problem Active Univers ears ears ity of [place] Physici ans Diabetes Diabetes Problem Active Unive rs insipidus insipidus ity of [place] Physici ans Localizati Localizati Problem Active U nivers on-related on-related it [place] of symptom[place] symptom[place] c epilepsy 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, seizures, intractabl intractabl e, without e, without status status epilepticu epilepticu s s Brain Brain Problem Active Univers tumor tumor ity of [place] Physici ans Sciatica Sciatica Problem Active Unive rs of left of left ity of side side [place] Physici ans Adrenal Adrenal Problem Active Univers insufficie insufficie it y of ncy ncy [place] Physici ans Vitamin D Vitamin D Problem Active Uni vers insufficie insufficie it y of ncy ncy [place] Physici ans Hypothyroi Hypothyroi Problem Active U nivers dism dism ity of [place] Physici ans Gastroesop Problem Resolve 2015-07-29 Memoria hageal d 00:31:29 l reflux [place] disease Gastroesop (disorder) hageal reflux disease (disorder) Resolved Problem 07/29/2015 [facility] Blindness Problem Resolve 2015-07-29 M emoria - both d 00:31:29 l eyes Matty (disorder) Blindness - both eyes (disorder) Resolved Problem 07/29/2015 [facility] Blood clot Problem Resolve 2015-07-29 Memoria (morpholog d 00:31:29 l ic Blood [place] abnormalit clot y) (morpholog ic abnormalit y) Resolved Problem 07/29/2015 [facility] 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 al tumor d 00:31:29 l (disorder) Parveen n Intracrani al tumor (disorder) Resolved Problem 07/29/2015 [facility] Cyst of Problem Resolve 2015-07-29 Mem oria breast d 00:31:29 l (disorder) Cyst of Her bonilla breast (disorder) Resolved Problem 07/29/2015 [facility] Epilepsy Problem Resolve 2015-07-29 Me moria (disorder) d 00:31:29 l Epilepsy Parveen n (disorder) Resolved Problem 07/29/2015 [facility] Hearing Problem Resolve 2015-07-29 Mem oria loss d 00:31:29 l (finding) Hearing Herm naye loss (finding) Resolved Problem 07/29/2015 [facility] Hypothyroi Problem Resolve 2015-07-29 Memoria dism d 00:31:29 l (disorder) Parveen n Hypothyroi dism (disorder) Resolved Problem 07/29/2015 [facility] Cyst of Problem Resolve 2015-07-29 Mem oria ovary d 00:31:29 l (disorder) Cyst of Her bonilla ovary (disorder) Resolved Problem 07/29/2015 [facility] Seizure Problem Resolve 2015-07-29 Mem oria (finding) d 00:31:29 l Seizure [place] (finding) Resolved Problem 07/29/2015 [facility] EPILEPSY, Diagnosis Active 2015-05-09 Memoria UNSP, NOT 15:09:00 l INTRACTABL Parveen n E, WITH ST EPILEPSY, UNSP, NOT INTRACTABL E, WITH ST Active [facility] 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 Memoria SYMPTC EPI 09:47:00 l W CMPLX [place] PART SEIZ, 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, Active [facility] NEOPLASM Diagnosis Active 2015-08-22 M emoria OF 09:47:00 l UNSPECIFIE NEOPLASM He rmann D BEHAVIOR OF OF BRAI UNSPECIFIE D BEHAVIOR OF BRAI Active [facility] BENIGN Diagnosis Active 2015-07-26 Mem oria NEOPLASM 13:55:00 l OF BENIGN [place] 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 [facility] Discharge Problem 2015-07-08 2015-07-08 Memoria Diagnosis: 3- 06:30:00 06:30:00 l Vomiting, 06:00: Matty unspecifie Discharge 00 d Diagnosis: Vomiting, unspecifie d 07/05/2015 07/08/2015 [facility] Discharge Problem 2015-07-08 2015-07-08 Memoria Diagnosis: 3- 06:30:00 06:30:00 l Vomiting 06:00: Matty in adult Discharge 00 Diagnosis: Vomiting in adult 6 07/08/2015 [facility] Allergies, Adverse Reactions, Alerts Allergy Allergy Status Severity Reaction(s) Onset Inactive Treating Comm ents Source Name Type Date Date Clinician Iodine Allergy Active Univers REMI to drug ity of (finding [place] ) Physici ans Penicill Allergy Active Univers ins to drug ity of (finding [place] ) Physici ans penicill penicill Active Memori a ins ins l [place] seafood seafood Active Memoria l [place] iodine iodine Active Memoria topical topical l Matty Family History Family Member Diagnosis Comments Start Date Stop Date Source Unknown Family Family history of Family History [facility] Heart Disease [place] Physi frankie Mother Family history of Univers ity of diabetes mellitus [place] P hysicians Mother Family history of Univers ity of hypertension [place] Physic ians Mother Family history of Univers ity of thyroid disease [place] Phy sicians Social History Social Habit Start Date Stop Date Quantity Comments Source Social History 2015-05-09 2015-05-09 [facility] Bernard mascorro 23:46:54 23:46:54 Smoking Status Start Date Stop Date Source Never smoked tobacco (finding) U [facility] Physicians Medications Ordered Filled Start Stop Current Ordering Indication Dosage Frequency Signature Comments Components Source Medication Medication Date Date Medication? Clinician (SIG) Name Name levETIRAcet levETIRAcet Yes BLAINE TAKE 2 Univers am 500 MG am 500 MG 2-05 MERCER TABLETS BY ity of Oral Tablet Oral Tablet 00:00: M.D. MOUTH [place] 00 TWICE Physici DAILY ans Vitamin D Vitamin D Yes EILEEN TAKE 1 Univers (Ergocalcif (Ergocalcif 1-17 [place] CAPSULE BY ity of stephenie) 1.25 stephenie) 1.25 00:00: M.D. MOUTH [place] MG (59386 MG (84513 00 WEEKLY Phy sici [place]) Oral [place]) Oral ans Capsule Capsule Pregabalin Pregabalin Yes BLAINE Q0.5D TAKE 1 Univers 75 MG Oral 75 MG Oral 2-18 MERCER CAPSULE ity of Capsule Capsule 00:00: M.D. TWICE [place] 00 DAILY. Physici ans Levothyroxi Levothyroxi Yes EILEEN TAKE 1 Univers ne Sodium ne Sodium 2-14 [place] TABLET BY ity of 125 MCG 125 MCG 00:00: M.D. MOUTH [place] Oral Tablet Oral Tablet 00 DAILY Physici ans dexamethaso Yes See Memori a ne 4 mg 1-25 Instructio l oral tablet 20:40: ns, 8 mg He rmann 00 PEG Q12 (end date 06/01) 8 mg QAM and 4 mg QHS for 1 week 4 mg PEG Q12 for 1 week 4 mg PEG daily for 1 week then resume hydrocorti sone 15 mg PEG QAM and 5 mg PEG QPM (home regimen), 0 Refill(s) sertraline Yes 100 mg = 1 M emoria 100 mg oral 1-25 tab, PEG, l tablet 20:34: Daily, 0 [place] 00 Refill(s) levothyroxi Yes 125 Memori a ne 125 mcg 1-25 microgram l (0.125 mg) 20:34: = 1 tab, Her bonilla oral tablet 00 PEG, Daily, 0 Refill(s) Levetiracet Yes 1,000 mg = Memoria am 100 1-25 10 mL, l MG/ML Oral 20:34: PEG, Q12H, H ermann Solution 00 0 [Keppra] Refill(s) lamotrigine Yes 400 mg = 2 Memoria 200 MG Oral 1-25 tab, PEG, l Tablet 20:34: BID, 0 Matty 00 Refill(s) Clonazepam Yes 0.5 mg = 1 M emoria 0.5 MG Oral 1-25 tab, PEG, l Tablet 20:34: BID, 0 [place] 00 Refill(s) pantoprazol Yes 40 mg = 1 M emoria e 40 mg 1-25 pkt, PEG, l oral 20:34: Daily, 0 Matty granule 00 Refill(s) gabapentin Yes 300 mg = 6 M emoria 50 MG/ML 1-25 mL, PEG, l Oral 20:34: Q8H, 0 [place] Solution 00 Refill(s) Imodium A-D No Notes: [facility] raeann 05-28 (Same as: l 19:17: Imodium) Matty 00 Menthol No Notes: Memoria 0.0044 05-28 (Same as: l MG/MG / 16:29: Calmosepti Herm naye Zinc Oxide 00 ne) 0.2 MG/MG Topical Ointment [Calmosepti ne Ointment] potassium No Notes: Memori a chloride -25 (Same as: l 13:31: Potassium Matty 00 Chloride) Protonix No 40 mg, 1 Memor ia -24 pkt, l 15:00: Route: [place] 00 PEG, Drug form: GRAN/REC, Daily, Dosing Weight 76.818, kg, Start date: 05/27/15 9:00:00, Duration: 30 day, Stop date: 06/25/15 9:00:00 Thyroxine No 125 Memoria 1-24 microgram, l 12:30: 1 tab, Matty Route: PEG, Drug form: TAB, Q630AM, Dosing Weight 76.818, kg, Start date: 05/27/15 6:30:00, Duration: 30 day, Stop date: 06/25/15 6:30:00 Dexamethaso No 8 mg, 2 Mem oria ne -24 tab, l 03:00: Route: [place] 00 PEG, Drug form: TAB, Q12H, Dosing Weight 76.818, kg, Start date: 05/26/15 21:00:00, Duration: 30 day, Stop date: 06/25/15 9:00:00 Levetiracet No Notes: [facility] raeann am 100 24 Same as: l MG/ML Oral 03:00: Keppra Lanny nn Solution 00 [Keppra] gabapentin No Notes: Memor ia 300 MG Oral 05-26 (Same as: l Capsule 22:00: Neurontin) Acetaminoph No 100.4 F, M emoria en 05-26 Start l 21:38: date: Matty 00 05/26/15 15:38:00, Duration: 30 day, Stop date: 06/25/15 15:37:00 Zofran No Notes: Memoria 05-26 (Same as: l 21:37: Zofran) MEDICATION WASTE Product Size: 4 mg Product Wasted: 0 mg Glucose 50 No 1,000 mL, Me moria MG/ML / 05-26 Rate: 75 l Sodium 11:57: ml/hr, Chloride 00 Infuse 0.154 over: 13.3 MEQ/ML hr, Route: Injectable IV, Dosing Solution Weight 76.818 kg, Total Volume: 1,000, Start date: 05/26/15 5:57:00, Duration: 30 day, Stop date: 06/25/15 5:56:00 Gastrografi No Notes: [facility] raeann n 05-25 WASTE: F/P l 20:51: - Black; E Matty - [facility] Trash Bin Flagyl No Notes: Memoria 1-21 (Same as: l 17:00: Flagyl) Matty 00 Avoid alcohol. 200 ML No Notes: Do Memori a Ciprofloxac -21 not l in 2 MG/ML 17:00: refrigerat H ermann Injection 00 e Thyroxine No Notes: Memori a 1-21 (Same as: l 15:00: Synthroid) Matty Keppra No Notes: Memoria 1-21 Same as l 03:00: Keppra [place] 00 Mix with 100 mL NS, LR or D5W MEDICATION WASTE Product Size: 500 mg Product Wasted: ___ mg Dexamethaso No Notes: [facility] raeann ne - Concentrat l 03:00: ion: Matty 00 4mg/ml Protonix No Notes: Memoria - (Same as: l 03:00: Protonix) Matty 00 Dexamethaso No Notes: [facility] raeann ne 1-20 Give with l 23:00: food. [place] 00 (Same As: Decadron) Morphine No Notes: Memoria 1-20 (Same l 22:26: as:MORPhin e Sulfate) Clindamycin No Notes: Duke raeann 1-20 (clindamyc l 22:26: in 150 [place] 00 mg/1 ml (600 mg/4 ml VL) INJ) (Same As: Cleocin) D5NS 1,000 No 1,000 mL, Me moria mL -20 Rate: 75 l 19:42: ml/hr, Infuse over: 13.3 hr, Route: IV, Dosing Weight 76.818 kg, Total Volume: 1,000, Start date: 05/23/15 13:42:00, Duration: 30 day, Stop date: 06/22/15 13:41:00 Iohexol No Notes: Memoria 1-20 (Same l 17:16: as:Omnipaq [place] 00 ue 350). Dexamethaso No Notes: [facility] raeann ne 1-19 Give with l 02:00: food. Matty 00 clindamycin No Notes: [facility] raeann 1-18 (Same As: l 00:00: Cleocin) Clindamycin No Notes: [facility] raeann 1-17 (Same As: l 20:00: Cleocin) docusate No Notes: Memoria 1-16 (Same as: l 15:33: Colace) docusate No Notes: Memoria 1-16 (Same as: l 15:30: Colace) Dexamethaso No Notes: [facility] raeann ne 1-16 Give with l 00:00: food. Docusate No Notes: Memoria Sodium 100 -15 (Same as: l MG Oral 16:46: Colace) Capsule (Do Not [Colace] Crush) Dulcolax No Notes: Memoria Laxative -15 (Same As: l 16:46: Dulcolax, Bisco-Lax) senna 8.6 No Notes: Memori a mg oral -15 (Same as: l tablet 16:46: Senokot) Acetaminoph No Notes: [facility] raeann en 325 MG / -15 (Same as: l Hydrocodone 16:45: [place] Lanny nn Bitartrate 00 325/5) Do 5 MG Oral not exceed Tablet 4gm/day of [[place] acetaminop 5/325] hen. Multihance No Notes: Memor ia 529 mg/mL -14 Same as l 04:17: Multihance Keppra No Notes: Memoria -14 Same as l 02:23: Keppra Mix with 100 mL NS, LR or D5W MEDICATION WASTE Product Size: 500 mg Product Wasted: ___ mg Ativan No Notes: Memoria 1-13 (Same as: l 07:13: Ativan) Ketorolac No 4 days Memor ia -13 l 03:55: MEDICATION WASTE Product Size: 30 mg Product Wasted: ___ mg Versed No 2 mg, Memoria 05-14 Route: l 20:56: IVP, ONCE, Dosing Weight 76.818, kg, PRN Anxiety, Start date: 05/14/15 14:56:00, Stop date: 06/13/15 14:55:00 Versed No Notes: Memoria 1-11 (Same as: l 16:57: Versed) MEDICATION WASTE Product Size: 2 mg Product Wasted: ___ mg potassium No Notes: Memori a phosphate + 05-14 (Same as: l Sodium 13:58: K Chloride Phosphate. 0.9% IV 250 ) 1 mMol mL phoshate has 1.47 mEq potassium Infuse over 4 hours NS 1,000 mL No 1,000 mL, M emoria 05-14 Rate: 75 l 06:00: ml/hr, Infuse over: 13.3 hr, Route: IV, Dosing Weight 76.818 kg, Total Volume: 1,000, please start when NPO, Start date: 05/14/15 0:00:00, Duration: 30 day, Stop date: 06/12/15 23:59:00 Dexamethaso No Notes: Memoria ne -11 MEDICATION l 00:00: WASTE Product Size: 10 mg Product Wasted: ___ mg Pepcid No Notes: Memoria 1-10 (Same as: l 13:31: Pepcid) Dexamethaso No Notes: Memoria ne 1-10 MEDICATION l 00:00: WASTE [place] 00 Product Size: 10 mg Product Wasted: ___ mg Docusate No Notes: Memoria - (Same as: l 23:00: Colace) Hydrocortis No Notes: [facility] raeann one - (Same as: l 21:00: Cortef) Magnesium No 2 gm, 50 [facility] raeann Sulfate 1-09 mL, Route: l 19:20: IVPB, Drug form: INJ, ONCE, Dosing Weight 76.818, kg, Total dose = 2 gm, Start date: 05/12/15 13:20:00, Duration: 1 doses or times, Stop date: 05/12/15 13:20:00 Dexamethaso No Notes: Memoria ne 05-12 MEDICATION l 19:11: WASTE Product Size: 10 mg Product Wasted: ___ mg Hydrocortis No Notes: [facility] raeann one 05-12 (Same as: l 15:00: Cortef) Multihance No Notes: Memor ia 529 mg/mL 05-12 Same as l 01:58: Multihance Hydrocortis No Notes: [facility] raeann one 05-12 (Same as: l 01:33: Cortef) Ativan No Notes: Memoria 05-11 (Same as: l 23:33: Ativan) normal No 1,000 mL, Memori a saline 0.9% 05-11 Rate: 75 l IV 1,000 mL 22:24: ml/hr, Infuse over: 13.3 hr, Route: IV, Dosing Weight 76.818 kg, Total Volume: 1,000, Start date: 05/11/15 16:24:00, Duration: 30 day, Stop date: 06/10/15 16:23:00 Ativan No Notes: Memoria -08 (Same as: l 17:36: Ativan) Versed No 2 mg, Memoria 05-11 Route: IM, l 17:27: ONCE, Dosing Weight 76.818, kg, Start date: 05/11/15 11:27:00, Stop date: 05/11/15 11:27:00 Versed No Notes: Memoria 1-08 (Same as: l 14:01: Versed) lamotrigine No 400 mg = 2 Memoria 200 MG Oral 05-10 tab, PO, l Tablet 17:12: BID lamotrigine No Notes: [facility] raeann 200 MG Oral 05-10 (Same l Tablet 15:00: as:LaMICta Lanny nn 00 l) Thyroxine No Notes: Memori a 1-07 Take 1 l 15:00: hour [place] 00 before or 2 hours after meal; Enteral feeds may interefere with the absorption of this medication . (Same as:Levothr oid) Sertraline No Notes: Memor ia 05-10 (Same as: l 15:00: Zoloft) Levetiracet No Notes: [facility] raeann am 1000 MG 05-10 (Same l Oral Tablet 15:00: as:Keppra) Clonazepam No Notes: Memor ia 05-10 (Same As: l 15:00: KlonoPIN) pneumococca No Notes: [facility] raeann l capsular 05-10 (Same as: l polysacchar 15:00: Pneumovax H ermann madonna type 1 00 23) vaccine / Refrigerat pneumococca e l capsular polysacchar madonna type 10A vaccine / pneumococca l capsular polysacchar madonna type 11A vaccine / pneumococca l capsular polysacchar [place]onna type 12F vaccine / pneumococca l capsular polysacchar heparin No Notes: Memoria sodium, 05-10 porcine l porcine 14:00: heparin [place] 2500 UNT/ML 00 Injectable Solution Versed No Notes: Memoria 05-10 (Same as: l 08:00: Versed) MEDICATION WASTE Product Size: 2 mg Product Wasted: _1__ mg Saline No Notes: Memoria Flush 0.9% 05-10 (Same as: l 03:00: BD Matty Posiflush) Acetaminoph No 1,000 mg = Memoria en 500 MG 05-10 2 tab, PO, l Oral Tablet 00:03: Q4H, PRN He rmann [Tylenol] 00 Pain, # 120 tab, 0 Refill(s) Saline No Notes: Memoria Flush 0.9% 05-09 (Same as: l 23:58: BD [place] Posiflush) lamotrigine No See Memori a 200 MG Oral 05-09 Instructio l Tablet 23:57: ns, 1 tab Parveen n 00 PO Daily, 1 Refill(s) levothyroxi No 125 Memori a ne 125 mcg 1-06 microgram l (0.125 mg) 23:57: = 1 tab, Her bonilla oral tablet 00 PO, Daily, # 30 tab, 0 Refill(s) clonazePAM No 0.5 mg = 1 M emoria 0.5 mg oral 1-06 tab, PO, l tablet 23:57: BID, # 30 Parveen n 00 tab, 0 Refill(s) sertraline No 100 mg = 1 M emoria 100 mg oral 1-06 tab, PO, l tablet 23:57: Daily, # Matty 00 30 tab, 0 Refill(s) Levetiracet No 1,000 mg = Memoria am 1000 MG 1-06 1 tab, PO, l Oral Tablet 23:57: BID, # 30 H ermann 00 tab, 0 Refill(s) lamoTRIgine lamoTRIgine Yes BLAINE TAKE 2 Univers 200 MG Oral 200 MG Oral 5-07 MERCER TABLETS BY ity of Tablet Tablet 00:00: M.D. MOUTH [place] 00 TWICE Physici DAILY ans levETIRAcet levETIRAcet 2007-05 Yes BLAINE TAKE 1 Univers am 1000 MG am 1000 MG 1-20 MERCER TABLET BY ity of Oral Tablet Oral Tablet 00:00: M.D. MOUTH [place] 00 TWICE Physici DAILY ans Hydrocortis Hydrocortis Yes EILEEN TAKE 3 Univers one 5 MG one 5 MG 5-27 G[place] TABLETS BY ity of Oral Tablet Oral Tablet 00:00: M.D. MOUTH [place] 00 EVERY Physici MORNING ans AND 1 TABLET BY MOUTH in the afternoon plus extra in times of stress Ibuprofen Ibuprofen Yes 1 QD TAKE 1 U nivers 200 MG Oral 200 MG Oral 9-20 CAPSULE ity of Capsule Capsule 00:00: DAILY PRN [place] 00 AT BEDTIME Physici ans Sertraline Sertraline Yes BLAINE TAKE 1 Univers HCl - 100 HCl - 100 3-21 MERCER TABLET BY ity of MG Oral MG Oral 00:00: M.D. MOUTH [place] Tablet Tablet 00 DAILY Physici ans clonazePAM clonazePAM Yes BLAINE TAKE 1 Univers 0.5 MG Oral 0.5 MG Oral 3-21 MERCER TABLET BY ity of Tablet Tablet 00:00: M.D. MOUTH [place] 00 TWICE Physici DAILY ans Immunizations Ordered Filled Immunization Date Status Comments Sourc e Immunization Name Name Influenza 2013-03-01 Completed University of 15:07:00 [place] Joey ns Vital Signs Vital Name Observation Time Observation Value Comments Source Body height 2019-12-02 66 [in_us] University of 14:58:00 [place] Physician s Weight 2019-12-02 155 [lb_av] University 14:58:00 [place] Physician s Body mass index 2019-12-02 25.02 kg/m2 University o f (BMI) [Ratio] 14:58:00 [place] Physicia ns Body temperature 2019-12-02 98.3 [degF] University 14:58:00 [place] Physician s Systolic blood 2019-06-27 113 mm[Hg] [facility] Position: [place] Physician s Sitting Diastolic blood 2019-06-27 73 mm[Hg] [facility] 15:52:[facility] Position: [place] Physician s Sitting Body height 2019-06-27 66 [in_us] University 15:52:00 [place] Physician s Weight 2019-06-27 165.6 [lb_av] University 15:52:00 [place] Physician s Body mass index 2019-06-27 26.73 kg/m2 University o f (BMI) [Ratio] 15:52:00 [place] Physicia ns Heart Rate 2019-06-27 67 /min University 15:52:00 [place] Physician s BP Systolic 2019-05-09 101 mm[Hg] [facility] Position: [place] Physician s Sitting BP Diastolic 2019-05-09 68 mm[Hg] [facility] 10:28:[facility] Position: [place] Physician s Sitting Height 2019-05-09 66 [in_us] University 10:28:00 [place] Physician s Weight 2019-05-09 157 [lb_av] University 10:28:00 [place] Physician s Body Mass Index 2019-05-09 25.34 kg/m2 University o f Calculated 10:28:00 [place] Physician s Heart Rate 2019-05-09 72 /min [facility] 10:28:00 [place] Physician s BP Systolic 2018-06-21 97 mm[Hg] [facility] 14:55:[facility] Position: [place] Physician s Sitting BP Diastolic 2018-06-21 61 mm[Hg] [facility] 14:55:00 Position: [place] Physician s Sitting Height 2018-06-21 66 [in_us] University 14:55:00 [place] Physician s Weight 2018-06-21 154 [lb_av] University 14:55:00 [place] Physician s Body Mass Index 2018-06-21 24.86 kg/m2 University o f Calculated 14:55:00 [place] Physician s Heart Rate 2018-06-21 65 /min [facility] 14:55:00 [place] Physician s BP Systolic 2018-06-08 101 mm[Hg] Location: [facility]; [facility] 15:17:00 Position: [place] Physician s Sitting BP Diastolic 2018-06-08 69 mm[Hg] Location: [facility] 15:17:00 Position: [place] Physician s Sitting Height 2018-06-08 66 [in_us] University 15:17:00 [place] Physician s Weight 2018-06-08 159 [lb_av] [facility] 15:17:00 [place] Physician s Body Mass Index 2018-06-08 25.66 kg/m2 University o f Calculated 15:17:00 [place] Physician s Heart Rate 2018-06-08 61 /min [facility] 15:17:00 [place] [facility] s Systolic (mm Hg) 2015-07-06 [facility] 02:55:00 Diastolic (mm Hg) 2015-07-06 [facility] 02:55:00 Respitory Rate 2015-07-06 [facility] 02:55:00 Respitory Rate 2015-07-06 [facility] 01:43:00 Systolic (mm Hg) 2015-07-06 [facility] 01:43:00 Diastolic (mm Hg) 2015-07-06 [facility] 01:43:00 Temperature Oral 2015-07-05 97.4 F [facility] (F) 23:29:00 Systolic (mm Hg) 2015-07-05 [facility] 23:29:00 Diastolic (mm Hg) 2015-07-05 [facility] 23:29:00 Temperature Oral 2015-07-05 97.8 F [facility] (F) 20:44:00 Respitory Rate 2015-07-05 [facility] 20:44:00 Heart Rate 2015-07-05 [facility] Parveen n 20:44:00 Heart Rate 2015-05-28 [facility] Parveen n 18:07:00 Temperature Oral 2015-05-28 99.5 F [facility] (F) 18:07:00 Systolic (mm Hg) 2015-05-28 [facility] 18:07:00 Diastolic (mm Hg) 2015-05-28 [facility] ermann 18:07:00 Respitory Rate 2015-05-28 [facility] 18:07:00 Heart Rate 2015-05-28 [facility] Parveen n 14:02:00 Systolic (mm Hg) 2015-05-28 [facility] 14:02:00 Diastolic (mm Hg) 2015-05-28 [facility] ermann 14:02:00 Respitory Rate 2015-05-28 [facility] 14:02:00 Temperature Oral 2015-05-28 97.4 F [facility] (F) 14:02:00 Respitory Rate 2015-05-28 [facility] 09:52:00 Heart Rate 2015-05-28 [facility] n 09:52:00 Systolic (mm Hg) 2015-05-28 [facility] 09:52:00 Diastolic (mm Hg) 2015-05-28 [facility] 09:52:00 Temperature Oral 2015-05-28 97.9 F Missael Hood rmann (F) 09:52:00 Weight 2015-05-10 Missael Santosan n 19:54:00 Height 2015-05-09 165.1 cm [facility] 23:35:00 Weight 2015-05-09 Missael Santosan n 23:35:00 BMI Calculated 2015-05-09 [facility] 23:35:00 Procedures Procedure Date / Time Performing Clinician Source Performed [QLH] VITAMIN D, 2019-05-20 00:00:00 [facility] 25-HYDROXY, LC/MS/MS Physicians [QLH] SODIUM 2019-05-09 00:00:00 [facility] [place] [facility] [QLH] T4, FREE 2019-05-09 00:00:00 [facility] [place] [facility] [QLH] VITAMIN D, 2019-05-09 00:00:00 [facility] [place] 25-HYDROXY, LC/MS/MS Physicians [QLH] VITAMIN D, 2018-06-24 00:00:00 [facility] 25-HYDROXY, LC/MS/MS Physicians History of Appendectomy [facility] Physicians History of Ovarian [facility] Surgery Physicians Biopsy of breast Missael Parveen n 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 [facility] Excision of ovary Missael Lanny nn Plan of Care Planned Activity Planned Date Details Comments Source Diagnostic Test 2019-08-17 [QLH] VITAMIN D, [facility] Pending 00:00:00 25-HYDROXY, Physicians LC/MS/MS [code = [QLH] VITAMIN D, 25-HYDROXY, LC/MS/MS] Diagnostic Test 2018-10-02 [QLH] VITAMIN D, [facility] Pending 00:00:00 25-HYDROXY, Physicians LC/MS/MS [code = [QLH] VITAMIN D, 25-HYDROXY, LC/MS/MS] Future Appointment 2020-05-08 Noreen ARELLANO [facility] 14:20:00 Cristopher PAIZ Encounters Start End Encounter Admission Attending Care Care Encounter Source Date/Time Date/Time Type Type Clinicians Facility Department ID 2019-12-02 2019-12-02 AppointPEBBLES Greene Otorhinolar [id number] Univers 15:30:00 15:30:00 t; OGDEN yngology - it y [facility]ici [place] ans 2019-12-02 2019-12-02 AppointPEBBLES Salvador Otorhinolar [id number] Univers 14:30:00 14:30:00 t; RENUKA ANTHONY yngology - ity nikki GRAYSON M.D. [facility] ans 2019-12-02 2019-12-02 AppointPEBBLES Cabral [id number] Univers 14:00:00 14:00:00 t; LE AGUSTIN [facility] ans 2019-09-30 2019-09-30 AppointPEBBLES Salvador Otorhinolar [id number] Univers 09:15:00 09:15:00 t; RENUKA ANTHONY yngology - itMarquis M.D. [facility] Physici [place] ans 2019-09-30 2019-09-30 PEBBLES Murillo [id number] Univers 08:30:00 08:30:00 t; LE AGUSTIN [facility] ans 2019-07-22 2019-07-22 AppointPEBBLES Cabral [id number] Univers 14:00:00 14:00:00 t; LE AGUSTIN [facility]ici ans 2019-06-27 2019-06-27 PEBBLES Chun Neurology - 5 [id number] Univers 16:00:00 16:00:00 t; Denny VALLADARES M.D. [facility] Physickareen Sorto ans 2019-06-20 2019-06-20 PEBBLES Chun [facility] [id number] Univers 16:00:00 16:00:00 t; alexandro [facility]. [facility] 2019-05-20 2019-05-20 PEBBLES Murillo Otorhinolar [id number] Univers 14:00:00 14:00:00 t; [facility] [place] ans 2019-05-09 2019-05-09 PEBBLES Ricks Endocrinolo [id number] Univers 09:45:00 09:45:00 t; Noreen ARELLANO [place] alexandro [facility] EILEEN Center Physici M.D. [facility] 2019-01-17 2019-01-17 [facility] [id number] 16:12:46 16:57:15 Visit [facility] [id number] [facility] [id number] [place] [address] [id number] Primary & 198 Specialty Care 2018-06-21 2018-06-21 PEBBLES Chun Neurology [id number] Univers 15:00:00 15:00:00 t; alexandro VALLADARES M.D. [place] Monae VALLADARES M.D. ans 2018-06-08 2018-06-08 PEBBLES Ricks Endocrinolo [id number] Univers 15:40:00 15:40:00 t; Noreen ARELLANO [facility] Monae ARELLANO M.D. ans 2018-03-22 2018-03-22 PEBBLES Ricks [facility] [id number] Univers 09:45:00 09:45:00 t; Noreen ARELLANO it y [facility] EILEEN [place] Physici M.D. ans 2017-09-21 2017-09-21 [facility] [id number] Univers 09:45:00 09:45:00 t; Noreen ARELLANO y of [facility] EILEEN Baldwin Physici M.D. ans 2017-04-16 2017-04-16 [facility] [id number] Univers 15:30:00 15:30:00 t; RACHELLE RAWLS ity of [place], M.D. [place] M.D. Physici ans 2017-03-23 2017-03-23 [facility] SHERRYELAINE, [facility] UTP [id number] Univers 09:00:00 09:00:00 t; Noreen ARELLANO it y of EILEEN Nieves Physici M.D. ans 2017-01-12 2017-01-12 [facility] [id number] Univers 10:30:00 10:30:00 t; RACHELLE RAWLS ity of [place], M.D. [place] M.D. Physici ans 2016-10-21 2016-10-21 [facility] ALFA, [facility] [id number] Univers 10:00:00 10:00:00 t; VIET GRIMM M.D. ity of VALA, M.D. [place] Physici ans 2016-08-01 2016-08-01 [facility] PEBBLES BA UTP [id number] Univers 09:00:00 09:00:00 t; TED BA [facility] Physici ans 2016-07-15 2016-07-15 [facility] ALFA, PEBBLES UTP [id number] Univers 10:30:00 10:30:00 t; VIET GRIMM M.D. ity of [place], M.D. [place] Physici ans 2016-07-01 2016-07-01 [facility] JESENIA, PEBBLES UTP [id number] Univers 09:30:00 09:30:00 t; [facility] 2015-07-26 2015-07-26 Mayte Serra [facility] [id number] 660 13:46:00 23:59:00 David Wilder 2015-07-05 2015-07-05 Outpatient Geronimo [facility] [id number] 14:39:00 21:00:00 Vilma Guevara 2015-05-09 2015-05-28 Outpatient Juan, [facility] [id number] 660 16:27:00 16:51:00 Emma 06 Courtney 1999-11-19 1999-11-19 Orders Doctor MARTY [id number] 00:00:00 00:00:00 Only Unassigned, RIGO [id number] [facility] [id number] [id number] Results Test Description Test Time Test Comments Results Result Comments Source [[facility]] SODIUM 2019-05-09 12:34:00 Test Item Value Reference Range Interpretation Comme nts SODIUM (test code = SODIUM) 138 mmol/L 135-146 N SPECIMEN RECEIVED DATE AND TIME: [facility] Physicians[[facility]] T4, [id number] 12:34:00 Test Item Value Reference Range Interpretation Comments T4, FREE (test 1.2 ng/dl 0.8-1.8 N SPECIMEN RECE IVED DATE AND code = T4, FREE) TIME: [facility] Physicians[[facility]] VITAMIN D, 25-HYDROXY, LC/MS/[id number] 12:34:00 Test Item Value Reference Range Interpretation Comments VITAMIN 18 ng/ml 30-100 Vitamin D Statu s D,25-OH,TOTAL,IA 25-OH Vitam in D: (test code = VITAMIN Deficie ncy: D,25-OH,TOTAL,IA) <20 ng/mLInsufficie ncy: 20 - 29 ng/mLOptimal: > or = 30 n g/mL For 25-OH Vitamin D testing on patients on D2-supplementat ion and patients for wh om quantitation of D2 and D3 fractions is re quired, the QuestAssure D(TM)25-OH VIT D, (D2,D3), LC/MS/MS is recommended: order code 11243 (pat ients >2yrs). For mor e information on this test, go to:http://educa tion.An[employer]ostics /faq/FAQ16 3(This link is being provided for informational/e ducational purposes only.) SPECIMEN RECEIVED DATE A ND TIME: [facility] Physicians[[facility]] BASIC METABOLIC PANEL [id number] 16:42:00 Test Item Value Reference Range Interpretation Comments GLUCOSE; Normal 89 mg/dl 65-139 N Non-fasting (test code = reference inter clem 1547-9) UREA NITROGEN 10 mg/dl 7-25 N (BUN) (test code = UREA NITROGEN (BUN)) CREATININE (test 0.99 mg/dl 0.50-1.10 N code = CREATININE) eGFR NON- 69 {ML/MIN/1.7} > OR = [address] [facility] (test code = eGFR NON-) eGFR 80 {ML/MIN/1.7} > OR = [address] [facility] (test code = eGFR ) BUN/CREATININE NOT APPLICABLE 6-22 RATIO (test code = BUN/CREATININE RATIO) SODIUM (test code 137 mmol/L 135-146 N = SODIUM) POTASSIUM (test 4.2 mmol/L 3.5-5.3 N code = POTASSIUM) CHLORIDE (test 100 mmol/L 98-110 N code = CHLORIDE) CARBON DIOXIDE 32 mmol/L 20-32 N (test code = CARBON DIOXIDE) CALCIUM (test code 9.0 mg/dl 8.6-10.2 N SPECIMEN RECEIVED = CALCIUM) DATE AND TIME: [facility]] T4, TOTAL (THYROXINE)2018-06-08 16:42:00 Test Item Value Reference Range Interpretation Comments T4, TOTAL 6.0 {mcg/dl} 4.8-10.4 <1 month: Not (THYROXINE) (test Establishe d 05-26 code = T4, TOTAL months: 6.0 -13.2 mcg/dL (THYROXINE)) 2-12 years: 5.5-12.1 mcg/dL 13-2 0 years: 5.5-11.1 mcg/dL >20 years: 4.8- 10.4 mcg/dL Pregna ncy 1st Trimester: 6.4- 15.2 mcg/dL 2nd Tr imester: 7.4-15.2 mcg/dL 3rd Trimester: 7.7- 13.8 mcg/dL All Tr imesters Together: 7.0-14.7 mcg/dL Conversi on factor: 1 mcg/d L = 12.9 nmol/LSPECIMEN RECEIVED DATE AND TIME: [facility]] T4, [id number] 16:42:00 Test Item Value Reference Range Interpretation Comments T4, FREE (test 1.2 ng/dl 0.8-1.8 N SPECIMEN RECE IVED DATE AND code = T4, FREE) TIME: [facility]] TSH, 3RD [id number] 16:42:00 Test Item Value Reference Range Interpretation Comments TSH; Below Low 0.15 {MIU/L} Reference Ran ge Threshold (test > or = 20 code = 85187-3) Years 0.40- 4.[address] 0.26-2.66 Second trimeste r 0.55-2.73 Third trimester 0.43-2.91SPECIM EN RECEIVED DATE A ND TIME: 642 [facility]] VITAMIN D, 25-HYDROXY, LC/MS/[id number] 16:42:00 Test Item Value Reference Range Interpretation Comments VITAMIN 13 ng/ml 30-100 Vitamin D Statu s D,25-OH,TOTAL,IA 25-OH Vitam in D: (test code = VITAMIN Deficie ncy: D,25-OH,TOTAL,IA) <20 ng/mLInsufficie ncy: 20 - 29 ng/mLOptimal: > or = 30 n g/mL For 25-OH Vitamin D testing on patients on D2-supplementat ion and patients for wh om quantitation of D2 and D3 fractions is re quired, the SafetyPay D(TM)25-OH VIT D, (D2,D3), LC/MS/MS is recommended: order code 60368 (pat ients >2yrs). For mor e information on this test, go to:http://educa tion.Reeher.com /faq/FAQ16 3(This link is being provided for informational/e ducational purposes only.) SPECIMEN RECEIVED DATE A ND TIME: [facility] PhysiciansCHEM [id number] 21:46:0096[facility] CHEM LXNGS3805-14-21 21:46:008.1[facility] HermannCHEM XTMMY1465-11-69 21:46:0026 [facility]annCHE[facility] WTNPG8780-92-21 21:46:000.77[facility]annCHEM PANEL 2015-07-05 21:46:003[facility]annCHEM MTXKN8377-87-94 21:46:003.1[facility] HermannCHEM QMUQI0056-30-61 21:46:48048Gywredvl HermannCHEM QNGEN0737-45-81 21:46:48990Gmfclaxr HermannCHEM CEJJM4111-15-04 21:46:00703Zdtmzsxh HermannCHEM CNSZL2574-10-86 21:46:0012.1[facility] FjgtvluZZQEAUEQKZ2907-60-76 21:46:00Normal (07/05/15 3:46 PM)[facility] SigewauNIPOZSFLEW4047-74-21 21:46:00 Test Item Value Reference Range Interpretation Comments Tot Cell Ct (test code = Tot Cell Ct) 100 1 [facility] WnxazygRZGUYYSQHF7972-25-71 21:46:000.0[facility] HermannHEMATOLOGY 2015-07-05 21:46:00Normal (07/05/15 3:46 PM)[facility] AieipsaFKORGSXIVD4123-18-77 21:46:0040.0[facility] RazgylwAGLMJYHJOR5663-02-92 21:46:004.0[facility] [place] YNUHCCEIJY8900-68-52 21:46:003.5[facility] BzzhpyzGLJHPVGRBY3708-57-17 21:46:002.5 [facility] XtiyqfmMUMIRIWEJO7900-12-89 21:46:000.2[facility] HermannHEMATOLOGY 2015-07-05 21:46:0056.0[facility] ZqpafbsQWUTWTYQMP7100-08-02 21:46:000.0[facility] MnzlhvzPJFBCVRDEO9660-80-61 21:46:0015.8[facility] CmtrmhbJTZYJGZXUL3091-77-98 21:46:006.9[facility] FdctnwgJNOEGTCHYZ0648-69-48 21:46:90798Sddjkube Matty NMMEIQIHON3056-24-15 21:46:0083.1[facility] XzaibjxOGXUEQISKN3734-67-84 21:46:00 3.91[facility] OujmldiSUDUPQAKZD8689-37-50 21:46:006.2[facility] HermannHEMATOLOGY 2015-07-05 21:46:0032.5[facility] JhcoezyLHSYKEFPNQ4299-53-53 21:46:0010.8[facility] FwpheimWUWIBXJGZB9443-93-63 21:46:0033.2[facility] WgrkwvxASKXDGRYZX2075-94-54 21:46:00 Test Item Value Reference Range Interpretation Comments MCH (test code = MCH) 27.6 pg 27.0-31.0 [facility] KRTWP8667-76-14 21:19:00Negative (07/05/15 3:19 PM) [facility] DGTWZ9084-38-20 21:19:00Negative (07/05/15 3:19 PM) [facility] BNVJM4559-52-00 21:19:000.2[facility] AND TNJEQ0611-87-94 21:19:00Negative (07/05/15 3:19 PM)[facility] STOOL 2015-07-05 21:19:00Negative *NA*(07/05/15 3:19 PM)[facility] STOOL 2015-07-05 21:19:00 Test Item Value Reference Range Interpretation Comments UA pH (test code = UA pH) 7.0 1 5.0-8.0 [facility] PGCKS1507-02-06 21:19:00 Test Item Value Reference Range Interpretation Comments UA Spec Grav (test code = UA Spec 1.015 1 Grav) [facility] ZHAOB3646-70-39 21:19:00Clear (07/05/15 3:19 PM)[facility] AND GKIIL7154-21-51 21:19:00Yellow *NA*(07/05/15 3:19 PM)[facility] AND ZWVVM4308-83-69 21:19:00None Seen (07/05/15 3:19 PM)[facility] HermannCHEM ICWMQ3907-12-92 18:52:0093[facility] HermannCHEM IBNRF0257-80-29 18:52:003.3[facility] HermannCHEM TSRLB5077-12-56 18:52:38301Qeuhbizy HermannCHEM LFIGX7423-41-93 18:52:000.80[facility]annCHEM SQQEC7934-48-54 18:52:008.6 [facility]annCHE[facility] XBOCD1197-36-71 18:52:0027[facility]annCHEM PANEL 2015-05-27 18:52:0013.3[facility] HermannCHEM LPIOV7683-95-10 18:52:34905Blrdcgom HermannCHEM HIMZG4435-78-44 18:52:0093[facility]annCHEM YANFJ4110-96-82 18:52:0014[facility] HermannCHEM QHQIR7973-44-58 18:52:000.3[facility] HermannCHEM OPWHN9837-04-00 18:52:003.3[facility] HermannCHEM WSTRR5583-41-18 18:52:000.1 [facility]annCHEM GGBHB3685-72-02 18:52:25045Kttpkdte HermannCHEM PANEL 2015-05-27 18:52:0031[facility] HermannCHEM HLBEN2301-19-84 18:52:003.4[facility] HermannCHEM WQJFO5381-22-75 18:52:21766Iqnteowr HermannCHEM TDHER1907-91-06 18:52:000.2[facility] HermannCHEM HKJVD2250-65-90 18:52:001.0[facility] HermannCHEM TVEIO6635-13-86 18:52:006.7[facility] HermannCHEM BAMYK3866-88-99 12:20:000.9 [facility]annCHEM MDYGA4604-83-22 12:20:003.8[facility] HermannCHEM PANEL 2015-05-25 12:20:0011.1[facility] HermannCHEM KDOOO9525-22-13 12:20:0023[facility] HermannCHEM CKEAT8273-74-40 12:20:85353Ybbocrtr HermannCHEM LTYTG2841-04-81 12:20:55368Lbinoitk HermannCHEM HSJRJ6008-46-39 12:20:000.71[facility] HermannCHEM NEFOK2373-65-52 12:20:004.1[facility] HermannCHEM PNFQE6567-36-19 12:20:0024 [facility]annCHEM TEDOS8359-27-97 12:20:24432Yyypoizg HermannCHEM PANEL 2015-05-25 12:20:003.3[facility] HermannCHEM IWZUU2862-04-80 12:20:29021Jpytzwgy HermannCHEM QMQPE3115-45-60 12:20:0050[facility] HermannCHEM VNPPB4080-67-90 12:20:008.2[facility] HermannCHEM BEHJN9590-42-24 12:20:007.1[facility] HermannCHEM PRAHJ4811-58-77 12:20:000.4[facility] HermannCHEM IWVOH9636-07-26 12:20:73637 [facility]annCHEM WMWSR5140-92-08 12:20:34883Mlyxoujq HermannCHEM PANEL 2015-05-25 12:20:0016[facility] LlpvnifLAIIMYGBTC9965-56-47 12:20:0014.9[facility] YxpbdqfOLTLAVBJVA5101-51-27 12:20:003.4[facility] OcnlansSMITWKVHSO6222-33-25 12:20:000.1[facility] QdvbfhmDFWMKUIJLQ1540-17-28 12:20:000.2[facility] [place] ZNVTLSRSYE5340-09-87 12:20:001.3[facility] VnofodnNZDOGYFGNE6836-21-71 12:20:000.3 [facility] GieytehGIASFSSDVY0318-15-43 12:20:006.9[facility] HermannHEMATOLOGY 2015-05-25 12:20:0081.4[facility] JcjxyguGIMSBBBRMR4748-49-87 12:20:004.66[facility] OymazoaRGCXFQSPUR1806-71-52 12:20:0039.4[facility] WahcpmlBPUMKRXTHX2712-47-75 12:20:0013.1[facility] UhjpcvsBFKGXTXJWE0479-16-70 12:20:008.5[facility]ty DYIKHSJSNI8423-12-56 12:20:0033.2[facility] ZlebqkjVYZAEOMDFL7392-93-54 12:20:00 Test Item Value Reference Range Interpretation Comments MCH (test code = MCH) 28.1 pg 27.0-31.0 [facility] CgbqrmwXRJJEOBWGW6407-65-42 12:20:0084.5[facility] HermannHEMATOLOGY 2015-05-25 12:20:007.8[facility] GqfsawdYOEJNUTDCR2048-66-24 12:20:11331Djmckepe NzahuvxSBYFSNZYZE7966-70-81 12:20:0015.9[facility] HermannCHEM PRVCX6241-47-27 06:01:05108Wbdeudce HermannCHEM RPJPF2654-44-35 06:01:001.0[facility] HermannCHEM IPFFJ1374-76-24 06:01:0096[facility] HermannCHEM VRZPA4582-90-20 06:01:009.1 [facility] HermannCHEM HCAEN5657-26-45 06:01:13458Kbwhnmyj HermannCHEM PANEL 2015-05-24 06:01:000.6[facility] HermannCHEM KQKYM3425-76-18 06:01:0083[facility] HermannCHEM DXKMB7227-30-12 06:01:007.4[facility] HermannCHEM YUGJZ3493-62-02 06:01:0025[facility] HermannCHEM IJDIN7006-37-55 06:01:003.7[facility] HermannCHEM BAFHP5801-07-51 06:01:0015.6[facility] HermannCHEM YWNBU7262-27-83 06:01:003.7 [facility] HermannCHEM MIJAH5441-14-53 06:01:000.87[facility] HermannCHEM PANEL 2015-05-24 06:01:0022[facility] HermannCHEM GPQOH8087-74-01 06:01:85282Oogculia HermannCHEM WAMBV1956-57-47 06:01:003.6[facility] HermannCHEM TEKCG4820-75-82 06:01:38240Dbutlduy HermannCHEM WYQHJ1127-53-87 06:01:0022[facility] HermannCHEM ZFDDC7188-49-66 06:01:96698Bioknwsi HafedghNHIBTWFSUE2395-87-43 06:01:000.1 [facility] FnooctwTHKQRQNHPO0426-08-66 06:01:0081.5[facility] HermannHEMATOLOGY 2015-05-24 06:01:000.7[facility] NdfurklJUPWTTDACA2820-89-91 06:01:0011.3[facility] WaqcmsbHGHYVNBEFW4662-09-31 06:01:000.5[facility] CxihwbfBSSYJFLYZA3872-93-03 06:01:001.7[facility] XvtcnsdQMDOVLDIVJ2152-69-93 06:01:0012.4[facility] [place] KUUHGYZUUW4468-59-59 06:01:000.4[facility] NgcersdWLJTNEPYGR3812-06-37 06:01:005.2 [facility] WgfgmdsVPVLKEMCCP5619-51-56 06:01:008.1[facility] HermannHEMATOLOGY 2015-05-24 06:01:0013.9[facility] SeiwkqvNIYAEBKGUF2304-36-83 06:01:0015.6[facility] SscwbwhKZIBZHQTFD8869-74-74 06:01:77177Uqcfawkh NddizacIKGODHXZTG8210-13-56 06:01:005.06[facility] GeqqvwpXRJMONDOPU7872-68-29 06:01:0032.2[facility] [place] CWYZPPBEDX7418-02-93 06:01:00 Test Item Value Reference Range Interpretation Comments MCH (test code = MCH) 26.5 pg 27.0-31.0 [facility] HmhxgqeKJSMEDCKJK2436-80-01 06:01:0041.6[facility] HermannHEMATOLOGY 2015-05-24 06:01:0082.1[facility] YprmylfWZIOYNMPUI3107-68-48 06:01:0013.4[facility] NahinecZSUZYVMQAP5981-44-67 21:17:0015.5[facility] PyfmmgwAYUIOYSCQY7284-22-50 21:17:0033.2[facility] RlpacbnNVVOKZECCW8208-07-79 21:17:007.7[facility]ty DEQPEJACWE0269-11-20 21:17:55076Cynhreny SopexyoWTUHWYBIVW3705-25-28 21:17:00 11.3[facility] OwaxghxQIBSNJQDWU7969-13-10 21:17:0082.5[facility] HermannHEMATOLOGY 2015-05-23 21:17:00 Test Item Value Reference Range Interpretation Comments MCH (test code = MCH) 27.4 pg 27.0-31.0 [facility] GfblbaaYDDOQEHPXQ5248-10-43 21:17:005.00[facility] HermannHEMATOLOGY 2015-05-23 21:17:0041.3[facility] YoqusqkEILANXISRZ1129-53-26 21:17:0013.7[facility] XxjdobpNRNOLGMEDV3473-22-77 21:17:007.8[facility] OlqlexuSVVBLUJGMZ3851-50-58 21:17:002.5[facility] TkadjjeLMENKWQPVD4468-72-05 21:17:0067.0[facility]ty NEOBOGAESK7973-80-60 21:17:000.6[facility] HdvpxwhJFIQDMTFVF6839-21-35 21:17:005.0 [facility] DovmckaPPBLESKDML9433-81-25 21:17:003.0[facility] HermannHEMATOLOGY 2015-05-23 21:17:001.0[facility] HybnmyaUJTOUUPSTU3668-15-23 21:17:00Normal (05/23/15 3:17 PM)[facility] SzwmvfmGMMWWPMUKI4274-15-11 21:17:00Normal (05/23/15 3:17 PM)[facility] EcnrypsNLDLLZXLMN8745-61-86 21:17:000.0[facility] PEJEBAEKUG3201-60-58 21:17:002.0[facility] AliiarmTBGULNWKVR5945-06-12 21:17:00 22.0[facility] DiepxyjLICBQIASXA8738-77-11 21:17:00 Test Item Value Reference Range Interpretation Comments Tot Cell Ct (test code = Tot Cell Ct) 100 1 [facility] HermannCHEM CTQZH2421-15-45 15:16:0033[facility] HermannHEMATOLOGY 2015-05-21 10:35:000.5[facility] DecifkiHOVTRAKPET1541-88-38 10:35:000.1[facility] GqufsabRCENFVQMYL7462-70-34 10:35:000.3[facility] HermannCHEM LDZMS4109-58-41 10:27:002.4[facility] HermannCHEM GRMCU1557-34-35 10:27:001.7[facility] UJWZJFWWOL2761-64-20 10:27:00Normal (05/15/15 4:27 AM)[facility]annHEMATOLOGY 2015-05-15 10:27:00Normal (05/15/15 4:27 AM)[facility] NwrnlptDWZNBJGUGD9030-50-64 10:27:001.24[facility] VfoaqyuOEKGJZIJGL8499-64-53 10:27:00 Test Item Value Reference Range Interpretation Comments PT (test code = PT) 15.9 s 12.0-14.7 [facility]CHE[facility] WOPEV1168-19-50 09:51:002.2[facility]annCHEM PANEL 2015-05-14 09:51:002.1[facility] JdaiwmpGNRWXYLECWADI7861-12-92 12:58:00<0.03 [facility]annCHEM CWEMC5091-24-85 09:21:002.2[facility]annCHEM PANEL 2015-05-13 09:21:003.2[facility] PcwfytrKTRYLNORLB0013-42-44 09:21:00 Test Item Value Reference Range Interpretation Comments PT (test code = PT) 17.0 s 12.0-14.7 [facility] GcyzwfsSYNHCNBKMG1369-62-44 09:21:00 Test Item Value Reference Range Interpretation Comments PTT (test code = PTT) 53.3 s 22.9-35.8 [facility] IgfczsfQOMVNSJLSY9816-34-58 09:21:001.35[facility]annHEMATOLOGY 2015-05-13 09:21:001+ (05/13/15 3:21 AM)[facility] LlwbhvcTRDPCKLANI8429-11-00 09:21:001+ *ABN*(05/13/15 3:21 AM)[facility] CllwolcBNVPCSDSTK3180-88-78 10:03:00 0.1[facility]annDRUG WTLDUT9057-63-16 00:25:00Negative *NA*(05/11/15 6:25 PM) [facility] RQDWAL0948-15-11 00:25:00Negative *NA*(05/11/15 6:25 PM) [facility] GPWOAT4463-71-76 00:25:00Negative *NA*(05/11/15 6:25 PM) [facility] PQJJBA6003-86-89 00:25:00Negative *NA*(05/11/15 6:25 PM) [facility] AMXWJE8374-55-37 00:25:00See Note (05/11/15 6:25 PM)[facility]DR[facility] ASIAQQ6513-21-31 00:25:00Positive *ABN*(05/11/15 6:25 PM)[facility] JIJDWM2338-61-97 00:25:00Negative *NA*(05/11/15 6:25 PM)[facility] XEHJWK0209-27-55 00:25:00Negative *NA*(05/11/15 6:25 PM)[facility] AND QAUIV3238-52-01 00:25:00<1[facility] STOOL 2015-05-12 00:25:001[facility] OJBZL2456-22-40 00:25:00Negative (05/11/15 6:25 PM)[facility] NWXOA1631-87-91 00:25:006.0[facility] QUFHF9812-59-20 00:25:001.019[facility] STOOL 2015-05-12 00:25:00Negative (05/11/15 6:25 PM)[facility] STOOL 2015-05-12 00:25:00Negative (05/11/15 6:25 PM)[facility] STOOL 2015-05-12 00:25:002.0[facility] AND SSYSJ0704-99-54 00:25:00Negative *NA*(05/11/15 6:25 PM)[facility] RMUCJ8141-67-10 00:25:00Clear (05/11/15 6:25 PM)[facility] HZHZR1978-28-26 00:25:00Yellow *NA*(05/11/15 6:25 PM)[facility] LHSU1543-26-88 00:25:00Negative (05/11/15 6:25 PM)[facility] LmwidqfWYYNROGINEQPU2912-00-07 00:14:000.07[facility] HermannPARATHYROID OUZRHUB8515-56-10 00:14:001.08[facility]annPARATHYROID ROFWYPJ8389-51-61 00:14:001.11[facility] BqramvoWUIUTJNCUV6857-42-56 00:14:0041 [facility] NxqmfvjTZUJPZKERQ7564-04-05 09:17:000.1[facility]annHEMATOLOGY 2015-05-11 09:17:000.2[facility] NjhckjtMYIXWFQMWI0168-32-03 14:37:0038.4[facility] RqswturPFEZCBUEDM3328-51-30 13:52:000.2[facility]annCHEM CPZIS8676-71-34 02:28:000.9[facility] HermannPARATHYROID NKWDECN1288-36-34 02:28:001.01[facility] HermannPARATHYROID EUKJRED9631-57-59 02:28:000.98[facility] HermannTOXICOLOGY 2015-05-10 02:28:0034.2[facility] UpiroktIFBIBOYIXO6881-24-80 02:28:0012[facility]
--- OUTSIDE RECORDS SUMMARY | 2019-12-05 15:21 | XMS REPORT | Summary of Care ---
:1975 Author Name Maddi Kiran Address Unavailable Unavailable , Care Team Providers Name Role Phone RAJ Sorto Unavailable Unavailable SYLVIE Sorto Unavailable Unavailable MIKE Sorto Unavailable Unavailable PIERRE OTERO Unavailable Unavailable RAJ OTERO UT Unavailable Unavailable Mike OTERO Unavailable Unavailable AGUSTIN AUD Unavailable Unavailable SYLVIE OTERO UT Unavailable Unavailable REMICK AUD UT Unavailable Unavailable RICK JAY MD Unavailable Unavailable Unavailable Unavailable Unavailable Functional Status Name Dates Details Functional status health issues are not documented Status: Name Dates Details Cognitive status health issues are not documented Status: Problems Name Dates Details Anxiety (300.00, F41.9) Status: Active 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, E29.1) S tatus: Active 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, 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6) Status: Activ e Sciatica of left side (724.3, M54.32) St atus: Active Adrenal insufficiency (255.41, E27.40) S tatus: Active 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 Start : 28-Sep-2007 Active levETIRAcetam 1000 MG Oral Tablet TAKE 1 TABLET BY MOUTH TWICE DAILY Quantity: 60 Refills: 11 BLAINE MERCER M.D. Start : 23-Mar-2008 Active clonazePAM 0.5 MG Oral Tablet TAKE 1 TABLET BY MOUTH TWICE DAILY Quantity: 180 Refills: 1 BLAINE MERCER M.D. Start : 22-Jul-2006 Active Sertraline HCl - 100 MG Oral Tablet TAKE 1 TABLET BY MOUTH DAILY Quantity: 30 Refills: 5 BLAINE MERCER M.D. Start : 22-Jul-2006 Active lamoTRIgine 200 MG Oral Tablet TAKE 2 TABLETS BY MOUTH TWICE DAILY Quantity: 120 Refills: 11 BLAINE MERCER M.D. Start : 08-Sep-2011 Active Levothyroxine Sodium 125 MCG Oral Tablet TAKE 1 TABLET BY MOUTH DAILY Quantity: 90 Refills: 3 EILEEN PAIZ M.D. Start : 17-Jun-2016 Active Pregabalin 75 MG Oral Capsule TAKE 1 CAPSULE TWICE DAILY. Quantity: 60 Refills: 5 BLAINE MERCER M.D. Start : 21-Jun-2018 Active Vitamin D (Ergocalciferol) 1.25 MG (95825 UT) Oral Capsule TAKE 1 CAPSULE BY MOUTH WEEKLY Quantity: 12 Refills: 1 EILEEN PAIZ M.D. Start : 20-May-2019 Active levETIRAcetam 500 MG Oral Tablet TAKE 2 TABLETS BY MOUTH TWICE DAILY Quantity: 120 Refills: 0 BLAINE MERCER M.D. 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 History of sinusitis (V12.69, Z87.09) St atus: Resolved History of streptococcal pharyngitis (V12.09, Z87.09) Status: Resolved History of thyroid disease (V12.29, Z86.39) Status: Resolved Procedures Procedure Dates Details History of Appendectomy Completed History of Ovarian Surgery Completed Immunization Name Dates Details Influenza on: 01-Mar-2013 Lot #: [id number] Family History Name Dates Details Family history of Heart Disease (V17.49) Comments: Family History Status: Active Name Dates Details Family history of diabetes mellitus (V18.0, Z83.3) Status: Active Family history of hypertension (V17.49, Z82.49) Status: Active Family history of thyroid disease (V18.19, Z83.49) Status: Active Social History Name Dates Details - Status: Name Dates Details Tobacco smoking consumption unknown (finding) Never smoked tobacco (finding) Vital Signs Date Test Result Details [id number] Body height 66 in Status: Weight 155 lb Status: Body mass index (BMI) [Ratio] 25.02 kg/m2 Status: Body surface area Derived from formula 1.79 m2 S tatus: Body temperature 98.3 f Status: Results Date Description Value Details Results not documented Plan of Care Name Dates Details Planned Observations Planned Goals not documented Planned Encounters Appointment; EILEEN PAIZ M.D. On: 08-May-2020 14 :20 Instructions Name Dates Details Instructions not documented Encounters Appointment; EILEEN PAIZ M.D. On: 22-Mar-2018 9 :45 Encounter Diagnosis: Problem not documented Appointment; EILEEN PAIZ M.D. On: 08-Jun-2018 15 :40 Encounter Diagnosis: Problem not documented Appointment; BLAINE MERCER M.D. On: 21-Jun-2018 1 5:00 Encounter Diagnosis: Problem not documented Appointment; EILEEN PAIZ M.D. On: 09-May-2019 9: 45 Encounter Diagnosis: Problem not documented Appointment; LE AGUSTIN On: 20-May-2019 14:00 Encounter Diagnosis: Problem not documented Appointment; BLAINE MERCER M.D. On: 20-Jun-2019 1 6:00 Encounter Diagnosis: Problem not documented Appointment; BLAINE MERCER M.D. On: 27-Jun-2019 1 6:00 Encounter Diagnosis: Problem not documented Appointment; LE AGUSTIN On: 22-Jul-2019 14:00 Encounter Diagnosis: Problem not documented Appointment; LE AGUSTIN On: 02-Dec-2019 14:00 Encounter Diagnosis: Problem not documented Appointment; RENUKA ANTHONY M.D. On: 02-Dec-2019 14:3 0 Encounter Diagnosis: Problem not documented
--- OUTSIDE RECORDS SUMMARY | 2019-12-05 15:21 | XMS REPORT | Summary of Care ---
:1975 Author Name Davon Kiran Address Unavailable Unavailable , Care Team Providers Name Role Phone RAJ Sorto Unavailable Unavailable SYLVIE Sorto Unavailable Unavailable MIKE Sorto Unavailable Unavailable PIERRE OTERO Unavailable Unavailable RAJ OTERO UT Unavailable Unavailable Mike OTERO Unavailable Unavailable AGUSTIN AUD Unavailable Unavailable SYLVIE OTERO UT Unavailable Unavailable JESENIA AUD UT Unavailable Unavailable Unavailable Unavailable Unavailable Functional Status [...] 21-Jun-2018 Active Vitamin D (Ergocalciferol) 1.25 MG (44899 UT) Oral Capsule TAKE 1 CAPSULE BY [...] Dates Details Influenza on: 01-Mar-2013 Lot #: [id number] Family History Name Dates Details Family history [...] (finding) Vital Signs Date Test Result Details No Known Vitals to report Results Date Description Value Details Results not documented Plan of Care Name Dates Details Planned Observations Planned Goals not documented Planned Encounters Appointment; RENUKA ANTHONY M.D. On: 30-Sep-2019 9:15 Appointment; EILEEN PAIZ M.D. On: 08-May-2020 14 [...] Problem not documented Appointment; LE AGUSTIN On: 30-Sep-2019 8:30 Encounter Diagnosis: Problem not documented Appointment; RENUKA ANTHONY M.D. On: 30-Sep-2019 9:15 Encounter Diagnosis: Problem not documented
--- OUTSIDE RECORDS SUMMARY | 2019-12-05 15:22 | XMS REPORT | Summary of Care ---
:1975 Author Name AGUSTIN Address Unavailable Unavailable , Care Team Providers Name Role Phone BELLOMY Unavailable Unavailable SYLVIE Sorto Unavailable Unavailable MIKE Sorto Unavailable Unavailable PIERRE OTERO Unavailable Unavailable RAJ OTERO UT Unavailable Unavailable Mike OTERO Unavailable Unavailable AGUSTIN AUD Unavailable Unavailable SYLVIE OTERO UT Unavailable Unavailable JESENIA MEHTA UT Unavailable Unavailable RICK JAY MD Unavailable [...] 21-Jun-2018 Active Vitamin D (Ergocalciferol) 1.25 MG (75523 UT) Oral Capsule TAKE 1 CAPSULE BY [...] Dates Details Influenza on: 01-Mar-2013 Lot #: [id number] Family History Name Dates Details Family history [...] (finding) Vital Signs Date Test Result Details [id number] Body height 66 in Status: Weight 155 [...] 14:3 0 Encounter Diagnosis: Problem not documented Appointment; ALBINO NG On: 02-Dec-2019 15:30 Encounter Diagnosis: Problem not documented
--- OUTSIDE RECORDS SUMMARY | 2019-12-05 15:22 | XMS REPORT | Summary of Care ---
[...] 21-Jun-2018 Active Vitamin D (Ergocalciferol) 1.25 MG (51249 UT) Oral Capsule TAKE 1 CAPSULE BY [...] Dates Details Influenza on: 01-Mar-2013 Lot #: [id number] Family History Name Dates Details Family history [...] (finding) Vital Signs Date Test Result Details [id number] Body height 66 in Status: Weight 155 [...]
--- NOTE | 2019-12-05 15:23 | RAD REPORT ---
EXAM DESCRIPTION: CT - Head C Spine Mpr Wo Con - 12/05/2019 2:51 pm CLINICAL HISTORY: Head and neck injury status post fall. Head and neck pain COMPARISON: 2017 MRI TECHNIQUE: Computed axial tomography of the head and cervical spine was obtained. Sagittal and coronal reconstruction was performed. All CT scans are performed using dose optimization technique as appropriate and may include automated exposure control or mA/KV adjustment according to patient size. FINDINGS: Postsurgical changes are present. A shunt courses from the right parietal region to the le ft aspect of the midbrain. Is unchanged in position. There has been enlargement of a right temporal mass measuring 5 centimeters. A moderate amount of jeffry rounding vasogenic edema compresses the right lateral ventricle. There shift of midline structures ap proximately 7 millimeters Extensive additional bilateral meningiomas are present. Some containing calcifications. Exact size is difficult to determine without IV contrast. Bilateral gliosis is present within the brainstem. No hydrocephalus A cervical fracture is not visualized. Mild anterior subluxation C3 on C4 and C4 on C5 unchanged from 2015 cat scan. Kyphosis involves the cervical spine. IMPRESSION: A 5 centimeter right temporal mass likely a meningioma has enlarged. There is moderate s urrounding vasogenic edema with shift of the midline structures 7 millimeters towards the left. Extensive bilateral meningiomas A cervical fracture is not visualized
[2019-12-05 16:11] LABS: Urine Blood NEGATIVE (NEG); Urine Glucose NEGATIVE (NEG); Urine Protein NEGATIVE (NEG)
[2019-12-05 16:36] LABS: Basophils % 0.9 % (0-1.3); Hematocrit 36.9 % (36.0-45.0); Lymphocytes % 32.7 % (15.3-44.8); MPV 7.7 fL (7.6-11.3); RBC Red Blood Cell Count 4.31 M/uL (3.86-4.86)
[2019-12-05 16:52] LABS: Protime INR 0.98
[2019-12-05 17:10] LABS: Albumin 3.9 g/dL (3.4-5.0); Bilirubin Direct 0.1 mg/dL (0-0.2); Bilirubin Total 0.4 mg/dL (0.2-1.0); Protein, Total 7.3 g/dL (6.4-8.2); Troponin (Emerg Dept Use Only) 0.06 ng/mL (0.0-0.045)
[2019-12-05] MEDS ORDERED: LIDOCAINE 1% MPF 30 ML VIAL ONE (17:20)
[2019-12-05] MEDS ORDERED: DERMABOND SKIN ADHESIVE TOP ONE (17:20)
--- NOTE | 2019-12-05 17:31 | RAD REPORT ---
EXAM DESCRIPTION: Jordyn Single View12/05/2019 4:06 pm CLINICAL HISTORY: sob COMPARISON: 2019 FINDINGS: The lungs appear clear of acute infiltrate. The heart is normal size. [employer] shunt courses th e right hemithorax IMPRESSION: No acute abnormalities displayed
[2019-12-05 17:35] LABS: Magnesium 2.3 mg/dL (1.8-2.4); Potassium 3.8 mmol/L (3.5-5.1)
[2019-12-05] MEDS ORDERED: dexAMETHasone 10 MG/ML VIAL ONE (18:28)
--- NOTE | 2019-12-05 20:14 | ER ---
Nurse's Notes [facility] Name: Grace Sarmiento Age: 44 yrs Sex: Female : 1975 Arrival Date: 12/05/2019 Time: 14:33 Bed 18 Private MD: Diagnosis: Cerebral edema;Intracerebral Mass with shift Presentation: 12/04 14:33 Chief complaint: Patient states: Pt presents via EMS with caregiver with reports of jr10 auditory and visual hallucinations. Also reports fall out of first story window. 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 Per caregiver there is a concern that tumors have returned. Coronavirus screen: Client denies travel out of the [place] in the last 14 days. At this time, the client does not indicate any symptoms associated with coronavirus-19. Ebola Screen: No symptoms or risks identified at this time. Initial Sepsis Screen: Does the patient meet any 2 criteria? No. Patient's initial sepsis screen is negative. Does the patient have a suspected source of infection? No. Patient's initial sepsis screen is negative. Risk Assessment: Do you want to hurt yourself or someone else?. Risk Assessment: Do you want to hurt yourself or someone else? Patient reports no desire to harm self or others. 14:33 Method Of Arrival: EMS: [facility] jr10 14:33 Acuity: SONJA 3 jr10 Historical: - Allergies: 14:44 Iodine; iw 14:44 PENICILLINS; iw - Home Meds: 14:47 lamotrigine 200 mg oral tab 2 tabs once daily [Active]; hydrocortisone 5 mg Oral tab 3 iw tabs once daily [Active]; pregabalin 75 mg Oral 2 times per day [Active]; levetiracetam 1,000 mg Oral tab 1 tab every 12 hours [Active]; sertraline 100 mg Oral tab 1 tab once daily [Active]; clonazepam 0.5 mg Oral tab 1 tab 2 times per day [Active]; levothyroxine 75 mcg oral tab once daily [Active]; Vitamin D2 50,000 unit oral cap 1 cap once wkly [Active]; - PMHx: 14:44 BLIND; HARD OF HEARING; Hypothyroidism; Seizures; TUMORS ON BRAIN X 7; iw - PSHx: 14:44 PEG TUBE; BRAIN TUMOR REMOVED; iw Screenin:00 Abuse screen: Denies threats or abuse. Denies injuries from another. Nutritional jr10 screening: No deficits noted. Tuberculosis screening: No symptoms or risk factors identified. Fall Risk Fall in past 12 months (25 points). Secondary diagnosis (15 points) seizures, IV access (20 points). Ambulatory Aid- None/Bed Rest/Nurse Assist (0 pts). Gait- Weak (10 pts.). Mental Status- Overestimates/Forgets Limitations (15 pts.). Assessment: 16:00 General: Appears in no apparent distress. Behavior is calm, cooperative. Pain: Denies jr10 pain. Neuro: Level of Consciousness is awake, alert, obeys commands, Oriented to person, place, time, situation, Appropriate for age Gait is shuffling, Reports sister and caregiver at bedside reports that pt has hx of benign brain tumors that she has received surgical intervention and radiation treatment for in the past. Reports recently that pt has been acting increasingly confused and has reported visual and auditory hallucinations. Reports today that pt tried to climb out of the window and fell out of the first story window. Pt sustained 2 lacerations to right side forehead. Denies LOC. Reports that pt is acting at baseline at present. NADN. . Cardiovascular: No deficits noted. Respiratory: No deficits noted. Airway is patent Respiratory effort is even, unlabored, Respiratory pattern is regular, symmetrical. GI: No deficits noted. Patient currently denies diarrhea, nausea, vomiting. : No deficits noted. EENT: No deficits noted. EENT: No deficits noted. Derm: Skin 2 lacerations noted to right side forehead. Musculoskeletal: No deficits noted. Injury Description: Laceration sustained to forehead is clean, was sustained 1-2 hours ago. no active bleeding noted at this time. Vital Signs: 14:45 BP 111 / 72; Pulse 75; Resp 16 S; Pulse Ox 99% on R/A; iw 15:00 BP 111 / 72; Pulse 72; Resp 16; Pulse Ox 100% on R/A; jr10 15:30 BP 114 / 75; Pulse 76; Resp 17; Pulse Ox 100% on R/A; jr10 16:00 BP 107 / 63; Pulse 82; Resp 20; Pulse Ox 100% on R/A; jr10 16:50 BP 110 / 71; Pulse 73; Resp 20; Pulse Ox 100% on R/A; jr10 18:09 BP 119 / 66; Pulse 68; Resp 18; Pulse Ox 100% ; jr10 ED Course: 14:33 Patient arrived in ED. jr10 14:35 Triage completed. jr10 14:35 Arm band placed on. jr10 14:50 Vilma Montgomery, EDITH is Primary Nurse. jr10 14:51 CT Head C Spine In Process Unspecified. EDMS 15:03 Manuel Melton PA is PHCP. jr8 15:03 Marco Blas MD is Attending Physician. jr8 16:00 Patient has correct armband on for positive identification. Placed in gown. Bed in low jr10 position. Call light in reach. Side rails up X2. caregiver/sister at bedside. air sampling and monitoring on. Pulse ox on. NIBP on. 16:07 XRAY Chest (1 view) In Process Unspecified. EDMS 16:25 Inserted saline lock: 22 gauge in right hand, using aseptic technique. IV is patent, is jr10 intact, with good blood return, Flushed. 16:42 No provider procedures requiring assistance completed. jr10 19:17 Report given to EDITH Watson. jr10 19:22 Primary Nurse role handed off by Vilma Montgomery RN mt2 19:22 Shirley Kohler RN is Primary Nurse. mt2 Administered Medications: 18:20 Drug: Decadron - Dexamethasone 10 mg Route: IVP; Site: left forearm; jr10 19:00 Follow up: Response: No adverse reaction mt2 20:30 Drug: Keppra 1000 mg Route: IV; Rate: calculated rate; Site: right hand; mt2 20:52 Follow up: Response: No adverse reaction; IV Status: Completed infusion; IV Intake: mt2 100ml Intake: 20:52 IV: 100ml; Total: 100ml. mt2 Outcome: 20:13 ER care complete, transfer ordered by . jr8 21:10 Patient left the ED. mt2 Signatures: Dispatcher [employer] Lurdes Wilkins RN RN Manuel Melton PA PA jr8 Shirley Kohler RN RN mt2 Vilma Montgomery RN RN jr10
--- NOTE | 2019-12-05 20:14 | EDPHYS ---
Physician Documentation [facility] Name: Grace Sarmiento Age: 44 yrs Sex: Female : 1975 Arrival Date: 12/05/2019 Time: 14:33 Bed 18 Private MD: SARAH Physician Marco Blas HPI: 12/04 15:37 This 44 yrs old Female presents to ER via EMS with complaints of Altered jr8 Mental Status. 15:37 The patient presents with confusion, disorientation. Onset: The symptoms/episode jr8 began/occurred gradually. Possible causes: unknown. Associated signs and symptoms: The patient has no apparent associated signs or symptoms. Current symptoms: In the emergency department the patient's symptoms have improved, mildly. Patient's baseline: Neuro: alert and fully oriented, Motor: no deficits, Ambulation: walks with assist only, Speech: normal. It is unknown whether or not the patient has had similar symptoms in the past. The patient has not recently seen a physician. Patient with history of benign tumors in past. 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 Family stated that she has been acting differently for past few day. Has been hearing and seeing things. Also had fall causing lacerations to forehead. 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 15:37 Skin: Positive for laceration(s). 15:37 Neuro: Positive for altered mental status. Exam: 15:37 Eyes: Lids and lashes normal. Conjunctiva and sclera are non-icteric and not jr8 injected. Cornea within normal limits. Periorbital areas with no swelling, redness, or edema. ENT: Nares patent. No nasal discharge, no septal abnormalities noted. Tympanic membranes are normal and external auditory canals are clear. Oropharynx with no redness, swelling, or masses, exudates, or evidence of obstruction, uvula midline. Mucous membranes moist. Neck: Trachea midline, no thyromegaly or masses palpated, and no cervical lymphadenopathy. Supple, full range of motion without nuchal rigidity, or vertebral point tenderness. No Meningismus. Cardiovascular: Regular rate and rhythm with a normal S1 and S2. No gallops, murmurs, or rubs. Normal PMI, no JVD. No pulse deficits. Respiratory: Lungs have equal breath sounds bilaterally, clear to auscultation and percussion. No rales, rhonchi or wheezes noted. No increased work of breathing, no retractions or nasal flaring. Abdomen/GI: Soft, non-tender, with normal bowel sounds. No distension or tympany. No guarding or rebound. No evidence of tenderness throughout. Back: No spinal tenderness. No costovertebral tenderness. Full range of motion. Skin: Warm, dry with normal turgor. Normal color with no rashes, no lesions, and no evidence of cellulitis. MS/ Extremity: Pulses equal, no cyanosis. Neurovascular intact. Full, normal range of motion. Neuro: Awake and alert, GCS 15, oriented to person, place, time. Impaired recent memory present. Cranial nerves II-XII grossly intact. Motor strength 5/5 in all extremities. Sensory grossly intact. 15:37 Head/face: Patient has one cm laceration to middle forehead and another stellate laceration to left foreahead. Vital Signs: 14:45 BP 111 / 72; Pulse 75; Resp 16 S; Pulse Ox 99% on R/A; iw 15:00 BP 111 / 72; Pulse 72; Resp 16; Pulse Ox 100% on R/A; jr10 15:30 BP 114 / 75; Pulse 76; Resp 17; Pulse Ox 100% on R/A; jr10 16:00 BP 107 / 63; Pulse 82; Resp 20; Pulse Ox 100% on R/A; jr10 16:50 BP 110 / 71; Pulse 73; Resp 20; Pulse Ox 100% on R/A; jr10 18:09 BP 119 / 66; Pulse 68; Resp 18; Pulse Ox 100% ; jr10 MDM: 15:03 Patient medically screened. jr8 17:18 Data reviewed: vital signs, nurses notes, lab test result(s), EKG, radiologic studies, jr8 CT scan. Data interpreted: Pulse oximetry: on room air is 100 %. Interpretation: normal. Counseling: I had a detailed discussion with the patient and/or guardian regarding: the historical points, exam findings, and any diagnostic results supporting the discharge/admit diagnosis, lab results, radiology results, the need to transfer to another facility, for higher level of care, [facility] does not immediately have the required specialist. ED course: Discussed recent CT results with radiologist. Vasogenic edema, shift new with enlargement of mass present. This coupled with new mental status changes warrants further evaluation by neurology and neurosurgery . 20:12 ED course: Matty Accepted patient for transfer under a Dr. Mckinnon. 12/04 15:30 Order name: Basic Metabolic Panel; Complete Time: 17:37 12/04 15:30 Order name: CBC with Diff; Complete Time: 16:48 12/04 15:30 Order name: LFT's; Complete Time: 17:37 12/04 15:30 Order name: Magnesium; Complete Time: 17:37 12/04 15:30 Order name: NT PRO-BNP; Complete Time: 17:37 12/04 15:30 Order name: PT-INR; Complete Time: 16:57 12/04 14:34 Order name: CT Head C Spine; Complete Time: 15:25 snw 12/04 15:30 Order name: Troponin (emerg Dept Use Only); Complete Time: 17:37 12/04 15:30 Order name: XRAY Chest (1 view); Complete Time: 17:33 12/04 15:30 Order name: ETOH Level; Complete Time: 19:28 jr8 12/04 15:35 Order name: Glucose, Ancillary Testing; Complete Time: 15:36 EDMS 12/04 16:09 Order name: Urine Dipstick--Ancillary (enter results); Complete Time: 16:17 bd 12/04 16:09 Order name: Urine --Ancillary (enter results); Complete Time: 16:17 bd 12/04 14:34 Order name: FSBS; Complete Time: 16:31 snw 12/04 15:30 Order name: EKG; Complete Time: 15:31 12/04 15:30 Order name: Cardiac monitoring; Complete Time: 15:31 12/04 15:30 Order name: EKG - Nurse/Tech; Complete Time: 16:29 12/04 15:30 Order name: IV Saline Lock; Complete Time: 16:29 12/04 15:30 Order name: Labs collected and sent; Complete Time: 16:29 12/04 15:30 Order name: O2 Per Protocol; Complete Time: 15:32 12/04 15:30 Order name: O2 Sat Monitoring; Complete Time: 15:32 12/04 15:30 Order name: Urine Dipstick-Ancillary (obtain specimen); Complete Time: 16:29 Administered Medications: 18:20 Drug: Decadron - Dexamethasone 10 mg Route: IVP; Site: left forearm; jr10 19:00 Follow up: Response: No adverse reaction mt2 20:30 Drug: Keppra 1000 mg Route: IV; Rate: calculated rate; Site: right hand; mt2 20:52 Follow up: Response: No adverse reaction; IV Status: Completed infusion; IV Intake: mt2 100ml Disposition: 12/05 08:48 Co-signature as Attending Physician, Marco Blas MD I agree with the assessment and bob plan of care. Disposition: 12/05/19 20:13 Transfer ordered to [facility]. Diagnosis are Cerebral edema, Intracerebral Mass with shift. - Reason for transfer: Higher level of care. - Accepting physician is Dr. Mckinnon. - Condition is Stable. - Problem is new. - Symptoms are unchanged. Signatures: Dispatcher [employer] EDMS Marco Blas MD MD cha Waters, Shelly, DIE INSPECTOR-C DIE INSPECTOR-Csnw Lurdes Guerrero, RN RN Manuel Ellis PA PA jr8 Shirley Kohler, RN RN mt2 Vilma Montgomery RN RN jr10 Corrections: (The following items were deleted from the chart) 12/04 21:10 20:13 12/05/2019 20:13 Transfer ordered to [facility]. Diagnosis is mt2 Cerebral edema; Intracerebral Mass with shift. Reason for transfer: Higher level of care. Accepting physician is Dr. Mckinnon. Condition is Stable. Problem is new. Symptoms are unchanged. jr8
[2019-12-05] MEDS ORDERED: LEVETIRACETAM 500 MG/5 ML VIAL IV ONE (20:40)
[2019-12-05] MEDS ORDERED: NA CHLORIDE 0.9% 100 ML IV ONE (20:40)
[2019-12-05 21:24] VITALS: O2SAT 100
[2019-12-05 21:29] VITALS: BP 119/66
[2019-12-05] MEDS ORDERED: prednisoLONE 15 MG/5 ML OSYR ONE (22:09)
[2019-12-05] MEDS ORDERED: DIPHENHYDRAMINE 12.5MG/5ML LIQ ONE (22:09)
--- NOTE | 2019-12-06 11:03 | EKG ---
Test Date: 2019-12-05 Test Time: 15:49:21 [employer] Supervisor: POORNIMA MEASUREMENT RESULTS: Intervals: Rate: 66 KS: 162 QRSD: 80 QT: 418 QTc: 438 [place]: P: -24 KS: 162 QRS: -3 T: -9 INTERPRETIVE STATEMENTS: Normal sinus rhythm Normal ECG Compared to ECG 12/05/2019 15:48:20 No significant changes Electronically Signed On 12-06-19 11:01:48 CDT by Wade Sanders
== END 2019-12-05 21:10 | disposition short-term general hospital (02) ==
LOC: ER 14:31
DX: G93.89 Other specified disorders of brain (principal); G93.6 Cerebral edema; S01.81XA Laceration without foreign body of other part of head, initial encounter; E03.9 Hypothyroidism, unspecified; G40.909 Epilepsy, unspecified, not intractable, without status epilepticus; Z88.0 Allergy status to penicillin; Z91.048 Other nonmedicinal substance allergy status
CPT/HCPCS: 96365; 93005; 85025; 80048; 36415; 80320; 83735; 81025; 85610; 82947; 80076; 81003; 84484; 83880; 70450; 72125; 71045; 96375; 99284; J1100; J1953; J7510; Q0163

== ENCOUNTER 2020-04-09 18:41 | Emergency (ER) | payer OTHER ==
[2020-04-09] MEDS ORDERED: ETOMIDATE 20 MG/10 ML VIAL IV ONE ×2 (18:42→19:02)
[2020-04-09] MEDS ORDERED: SUCCINYLCHOLINE 20 MG/ML (10 ML) IV ONE (18:42)
--- OUTSIDE RECORDS SUMMARY | 2020-04-09 18:46 | XMS REPORT | Continuity of Care Document ---
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 02/28/[address] Center D32.0 Active 01/11/[address] WORSENING BRAIN TUMOR Active 12/05/[address] Discharge Diagnosis: 07/05/19 07/08/2015 [facility] Vomiting, unspecified [address] [place] [address] Discharge Diagnosis: 07/05/19 07/08/2015 [facility] Vomiting in adult 16 [facility] BRAIN SHUNT NOT Active 07/05/19 [facility] [place] DRAINING [address] [place] [address] MENINGIOMA CA Active 06/27/19 [facility] as [address] [place] [address] PAIN Active 05/09/[address] G40.901 Active 05/09/[address] G40.219 Active 05/09/[address] Gastroesophageal Resolved Problem 04/09/2020 [facility] reflux disease [facility] (disorder) [place] Blindness - both eyes Resolved Problem 04/09/2020 [facility] (disorder) [facility] Blood clot Resolved Problem 07/29/2015 [facility] (morphologic Medical abnormality) [place] Intracranial tumor Resolved Problem 04/09/2020 [facility] (disorder) [facility] Cyst of breast Resolved Problem 04/09/2020 [facility] [place] (disorder) [facility] Epilepsy (disorder) Resolved Problem 04/09/2020 [facility] Hearing loss Resolved Problem 04/09/2020 [facility] (finding) [facility] Hypothyroidism Resolved Problem 04/09/2020 [facility] [place] (disorder) [facility] Cyst of ovary Resolved Problem 04/09/2020 [facility] [place] (disorder) [facility] Seizure (finding) Resolved Problem 04/09/2020 [facility] Blindness AND/OR Active Problem 04/09/2020 [facility] vision impairment Ia dical level (disorder) [address] Mood disorder Active Problem 04/09/2020 [facility] [place] (disorder) [facility] 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 [facility] behavior of meninges Medical (disorder) Center Panhypopituitarism Active Problem 04/09/2020 [facility] (disorder) [facility] Seizure disorder Active Problem 04/09/2020 [facility] (disorder) [facility] EPILEPSY, UNSP, NOT Active [facility] INTRACTABLE, WITH [facility] LOCAL-REL SYMPTC EPI Active [facility] W CMPLX PART SEIZ, M edical Center NEOPLASM OF Active [facility] UNSPECIFIED BEHAVIOR Medical OF BRAI [place] BENIGN NEOPLASM OF Active [facility] CEREBRAL MENINGES Me dical Center CEREBRAL EDEMA Active [facility] Medications Medication Details Route Status Patient Ordering Order Source Instructions Provider Date Flumazenil 0.2 mg, Route: No Longer 04/07[facility] [place] IVP, PRN, Dosing [place] [address] Medical Weight 79.545, Center kg, PRN Benzodiazepine Reversal, Initial dose, Start date: 04/06/20 18:38:00 [employer], Duration: 30 day, Stop date: 05/06/20 18:37:00 [employer] Naloxone 0.4 mg, Route: No Longer 04/07[facility] Parth as IVP, Q2MIN, [place] [address] Medical Dosing Weight Center 79.545, kg, PRN Narcotic Reversal, Start date: 04/06/20 18:38:00 [employer], Duration: 8 doses or times, Stop date: Limited # of times Ondansetron 4 mg, Route: No Longer 04/[facility] IVP, ONCE, [place] [address] Medical Dosing Weight Center 79.545, kg, PRN Nausea & Vomiting, Start date: 04/06/20 18:38:00 [employer] Sodium Chloride 1,000 mL, Rate: No Longer 04/06[facility] 0.9% IV 1,000 mL 50 ml/hr, Infuse [address] over: 20 hr, Center Route: IV, Dosing Weight 79.545 kg, Total Volume: 1,000, Priority: Routine, Start date: 04/06/20 15:43:00 [employer], Duration: 30 day, Stop date: 05/06/20 15:42:00 [employer], 1.96, m2 Acetaminophen 325 mg, Route: No Longer 04/06[facility] Denny PO, Drug form: [place] [address] Medical TAB, Q4H, Dosing Center Weight 79.545, kg, PRN Pain Score 1-3, Start date: 04/06/20 15:43:00 [employer], Duration: 30 day, Stop date: 05/06/20 15:42:00 [employer] Acetaminophen 1 tab, Route: No Longer Denny 325 MG / PO, Drug Form: Active 2019 Medical Hydrocodone TAB, Dosing Center Bitartrate 5 MG Weight 79.545, Oral Tablet kg, Q4H, PRN Pain Score 4-6, Start date: 04/06/20 15:43:00 [employer], Duration: 30 day, Stop date: 05/06/20 15:42:00 [employer] Bupivacaine 30 mL, Route: No Longer [place] Hydrochloride MISC, Dosing Active 2020 Medic al 2.5 MG/ML / Weight 79.545, Cente r Epinephrine kg, ONCALL, 0.005 MG/ML Start date: Injectable 04/06/20 6:00:00 Solution [employer], Duration: 30 day, Stop date: 05/06/20 5:59:00 [employer] Bacitracin 0.5 1 appl, Route: No Longer [place]enny UNT/MG / TOP, ONCALL, Active 2019 Medical Polymyxin B 10 Drug form: OINT, [place] UNT/MG Topical Priority: Ointment Routine, Start [Polysporin] date: 04/06/20 6:00:00 [employer], Duration: 1 doses or times Fentanyl 50 microgram, [place] Longer [place] Route: IVP, Active 2019 Medical ONCALL, Dosing Center Weight 79.545, kg, Priority: Routine, Start date: 04/06/20 6:00:00 [employer], Duration: 1 doses or times Sodium Chloride 1,000 mL, Rate: No Longer [place] 0.9% IV 1,000 mL 50 ml/hr, Infuse Active 2019 Medical over: 20 hr, Center Route: IV, Dosing Weight 79.545 kg, Total Volume: 1,000, Priority: Routine, Start date: 04/06/20 5:49:00 [employer], Duration: 30 day, Stop date: 05/06/20 5:48:00 [employer], 1.96, m2, 0 Dexamethasone 6 mg, Route: Inactive [place] IVP, Drug form: 2019 Medical INJ, ONCE, Center Dosing Weight 79.545, kg, Start date: 04/06/20 5:49:00 [employer], Stop date: 04/06/20 5:49:00 [employer] Famotidine Notes: (Same as: Inactive [place] Pepcid) Can be 2020 Medical dilute in 5-10cc Center NS IVP: Slow IV push over at least 2 minutes. Ondansetron Notes: (Same as: No Longer [place] Zofran) 2019 Medical MEDICATION WASTE Center Product Size: 4 mg Product Wasted: ___ mg Promethazine 25 mg, Route: No Longer [place] IVPB, Q6H, Active 2019 Medical Dosing Weight Center 79.545, kg, PRN Nausea & Vomiting, Start date: 04/06/20 5:49:00 [employer], Duration: 30 day, Stop date: 05/06/20 5:48:00 [employer] Fentanyl 25 microgram, No Longer Partha s Route: IVP, Q1H, Active 2019 Medical Dosing Weight Center 79.545, kg, PRN Pain Score 7-10, Priority: Routine, Start date: 04/06/20 5:49:00 [employer], Duration: 1 doses or times, Stop date: Limited # of times Hydralazine 20 mg, Route: No Longer [place] IV, Q4H, Dosing Active 2019 Medical Weight 79.545, Center kg, PRN Hypertension, Start date: 04/06/20 5:49:00 [employer], Duration: 30 day, Stop date: 05/06/20 5:48:00 [employer] Labetalol 10 mg, Route: No Longer Parth as IVP, Drug form: Active 2019 Medical INJ, [id number], Center Dosing Weight 79.545, kg, PRN Hypertension, Start date: 04/06/20 5:49:00 [employer], Duration: 3 doses or times, Stop date: Limited # of times Dexamethasone 4 mg, Route: PO, Inactive [place] Q6H, Dosing 2019 Medical Weight 63.636, Center kg, Start date: 12/09/19 18:00:00 CDT, Duration: 30 day, Stop date: 01/08/20 12:00:00 CDT OLANZapine 5 mg 5 mg = 1 tab, Active [place] oral tablet, PO, BID, PRN 2020 Medica l disintegrating Agitation, # 60 C enter tab, 0 Refill(s), Pharmacy: [facility] #[id number], 167.64, cm, 12/05/19 22:02:00 CDT, Height, 63.636, kg, 12/05/19 22:02:00 CDT, Weight Dexamethasone 4 4 mg = 1 tab, Active [facility] MG Oral Tablet PO, BID, X 30 2019 Med ical day, # 60 tab, 0 Center Refill(s), Pharmacy: [facility] #[id number], 167.64, cm, 12/05/19 22:02:00 CDT, Height, 63.636, kg, 12/05/19 22:02:00 CDT, Weight Dexamethasone Notes: Inactive [facility] Concentration: 2020 Medical 4mg/ml Center Dexamethasone Notes: Give with Inactive [facility] food. (Same As: [address] [place] [address] Decadron) Center famotidine Notes: (Same as: No Longer [facility] Pepcid) Active [address] [place] [address] olanzapine Notes: (Same as: No Longer [facility] ZyPREXA Zydis Active [address] [place] [address] ODT-Oral Center Disintegrating Tablet) Clonazepam Notes: (Same As: No Longer [facility] KlonoPIN) Active [address] [place] [address] [facility] Group 3:Reproductive risk Hazardous Drug -- Refer to safe handling procedure PPE Matrix Ativan Notes: (Same as: Inactive [place] as Ativan) [address] [place] [address] Ativan Notes: (Same as: Inactive [place] as Ativan) [address] [place] [address] Cortef Notes: (Same as: [place] Longer [place] Cortef) Active [address] [place] [address] levothyroxine 125 microgram = Active [facility] 125 mcg (0.125 1 tab, PO, Daily 2019 Medical mg) oral tablet Center Hydrocortisone Notes: (Same as: No Longer [facility] Cortef) Active [address] [place] [address] Keppra 500 mg, Route: Inactive [facility] IVPB, Q12H, 2020 Medical Dosing Weight Center 63.636, kg, Priority: Routine, Start date: 12/06/19 9:00:00 CDT, Duration: 30 day, Stop date: 01/04/20 21:00:00 CDT Clonazepam Notes: (Same As: Inactive [facility] KlonoPIN) [address] [place] [address] Hazardous Drug [place] Group 3:Reproductive risk Hazardous Drug -- Refer to safe handling procedure PPE Matrix lamotrigine 200 Notes: (Same No Longer [place] MG Oral Tablet as:LaMICtal) Active [address] [place] [address] Levetiracetam Notes: (Same No Longer [place] 1000 MG Oral as:Keppra) [address] Thyroxine Notes: Take 1 No Longer [facility] as hour before or [address] [facility] Medical hours after [place] meal; Enteral feeds may interefere with the absorption of this medication. (Same as:Levothroid) pregabalin Notes: (Same as: No Longer [facility] Lyrica) [address] Sertraline Notes: (Same as: No Longer [facility] Zoloft) [address] Famotidine Notes: (Same as: No Longer [facility] Pepcid) Can be Active [facility] Medical dilute in 5-10cc Center NS IVP: Slow IV push over at least 2 minutes. Dexamethasone Notes: No Longer [facility] Concentration: Active [address] [place] [address] 4mg/ml [place] levothyroxine 0 Refill(s) Inactive [place] 125 mcg (0.125 [facility] Medical mg) oral tablet [place] hydrocortisone 5 TK 3 TS PO QAM No Longer [facility] mg oral tablet AND 1 T IN THE Active [address] [place] [address] dical AFTERNOON PLUS Center EXTRA IN TIMES OF STRESS Ergocalciferol 50,000 IntlUnit Active [place] [address] UNT Oral = 1 cap, PO, 2019 Medi mesha Capsule qWeek [place] sertraline 100 100 mg = 1 tab, Active H [place] mg oral tablet PO, Daily [address] [place] [address] Levetiracetam 1,000 mg = 1 [place] 1000 MG Oral tab, PO, BID [facility] Medica l Tablet [place] lamotrigine 200 400 mg = 2 tab, Active [place] MG Oral Tablet PO, BID [address] [place] [address] clonazePAM 0.5 0.5 mg = 1 tab, No Longer [place] mg oral tablet PO, BID Active 2019 [facility] pregabalin 75 mg 75 mg = 1 cap, Active [place] oral capsule PO, BID, TK 1 C 2019 Med ical PO BID Center Dextrose 50% 12.5 gm, 25 mL, No Longer H [place] Syringe (D50W) Route: IVP, Drug Active 2019 Medical Form: INJ, Center Dosing Weight 63.636, kg, PRN, PRN Blood Glucose Results, Start date: 12/06/19 6:49:00 CDT, Duration: 30 day, Stop date: 01/05/20 6:48:00 CDT, 0 Dextrose 50% in 25 gm, 50 mL, No Longer [place] Water IV Route: IVP, Drug Active 2019 Medica l Form: INJ, Center Dosing Weight 63.636, kg, PRN, PRN Blood Glucose Results, Start date: 12/06/19 6:49:00 CDT, Duration: 30 day, Stop date: 01/05/20 6:48:00 CDT, 0 Glucagon 1 mg, Route: IM, No Longer [place] Drug form: Active 2019 [facility] PDR/INJ, PRN, Center Dosing Weight 63.636, kg, PRN Blood Glucose Results, Start date: 12/06/19 6:49:00 CDT, Duration: 30 day, Stop date: 01/05/20 6:48:00 CDT, 0 Dexamethasone 8 mg, Route: Inactive [place] IVP, ONCE, [facility] Medical Dosing Weight Center 63.636, kg, Priority: STAT, Start date: 12/06/19 4:58:00 CDT, Stop date: 12/06/19 4:58:00 CDT Keppra 1,000 mg, Route: Inactive [place] as IVPB, ONCE, [facility] Medical Dosing Weight Center 63.636, kg, Priority: STAT, Start date: 12/06/19 4:39:00 CDT, Stop date: 12/06/19 4:39:00 CDT dexamethasone 4 See Active [place] mg oral tablet Instructions, 2015 M edical mg PEG Q12 (end [...] PEG, Daily, 0 2015 Med ical Refill(s) [place] levothyroxine 125 microgram = Active [place] 125 mcg (0.125 1 tab, PEG, 2015 Medic al mg) oral tablet Daily, 0 Center Refill(s) Levetiracetam 1,000 mg = 10 Active [place] 100 MG/ML Oral mL, PEG, Q12H, 0 2015 Medical Solution Refill(s) [place] [Keppra] lamotrigine 200 400 mg = 2 tab, Active [facility] MG Oral Tablet PEG, BID, 0 2015 Medic al Refill(s) [place] Clonazepam 0.5 0.5 mg = 1 tab, Active H [place] MG Oral Tablet PEG, BID, 0 2015 Medic al Refill(s) [place] pantoprazole 40 40 mg = 1 pkt, Active H [place] mg oral granule PEG, Daily, 0 2015 Me dical Refill(s) [place] gabapentin 50 300 mg = 6 mL, Active [facility] MG/ML Oral PEG, Q8H, 0 2015 Medical Solution Refill(s) [place] Imodium A-D Notes: (Same as: Inactive [facility] Imodium) 2015 [facility] Menthol 0.0044 Notes: (Same as: Inactive [place] MG/MG / Zinc Calmoseptine) 2015 Medic al Oxide 0.2 MG/MG [place] Topical Ointment [Calmoseptine Ointment] potassium Notes: (Same as: Inactive [place] chloride Potassium 2015 [facility] Chloride) [place] Protonix 40 mg, 1 pkt, No Longer [...] 06/25/15 5:56:00 Gastrografin Notes: WASTE: Inactive [place] F/P - Black; E - 2016 [facility] Bin Flagyl Notes: (Same as: No Longer [place] Flagyl) Avoid Active 2015 Medical alcohol. Center 200 ML Notes: Do not No Longer [place] Ciprofloxacin 2 refrigerate Active 2016 Medi mesha MG/ML Injection Center Thyroxine Notes: (Same as: No Longer [place] Synthroid) Active 2016 [facility] Center Keppra Notes: Same as No Longer [place] Keppra Mix with Active 2015 Medical 100 mL NS, LR or Center D5W MEDICATION WASTE Product Size: 500 mg Product Wasted: ___ mg Dexamethasone Notes: No Longer [place] Concentration: Active 2015 Medical 4mg/ml Center Protonix Notes: (Same as: No Longer [place] Protonix) Active 2015 [facility] Dexamethasone Notes: Give with Inactive [place] food. (Same As: 2015 Medical Decadron) Center Morphine Notes: (Same No Longer [place] as:MORPhine Active 2015 Medical Sulfate) Center Clindamycin [...] 06/22/15 13:41:00 Iohexol Notes: (Same No Longer [place] as:Omnipaque Active 2015 Medical 350). Center Dexamethasone Notes: Give with No Longer [place] food. Active 2015 [facility] clindamycin Notes: (Same As: No Longer [place] Cleocin) Active 2015 [facility] Clindamycin Notes: (Same As: Inactive [place] Cleocin) 2016 [facility] docusate Notes: (Same as: No Longer [place] Colace) Active 2016 [facility] docusate Notes: (Same as: [place]active [place] Colace) 2016 [facility] Dexamethasone Notes: Give with No Longer [place] food. Active 2015 [facility] Docusate Sodium Notes: (Same as: No Longer 05/18 [place] 100 MG Oral Colace) (Do Not Active 2015 [facility] mesha Capsule [Colace] Crush) Center Dulcolax Notes: (Same As: No Longer [place] Laxative Dulcolax, Active 2015 Medical Bisco-Lax) Center senna 8.6 mg Notes: (Same as: No Longer [place] oral tablet Senokot) Active 2016 Medical Center Acetaminophen Notes: (Same as: No Longer Denny 325 MG / [place] 325/5) Do Active 2015 Medica l Hydrocodone not exceed Center Bitartrate 5 MG 4gm/day of Oral Tablet acetaminophen. [[place] 5/325] Multihance 529 Notes: Same as No [...] Longer [place] 75 ml/hr, Infuse Active 2015 Medical over: [...] No Longer [place] Pepcid) Active 2015 [facility] Center Dexamethasone Notes: [place] Longer [place] MEDICATION WASTE Active 2015 Medical Product Center Size: 10 mg Product Wasted: ___ mg Docusate Notes: (Same as: No Longer [place] Colace) Active 2015 [facility] Center Hydrocortisone Notes: (Same as: No Longer [place] Cortef) Active 2015 [facility] Magnesium 2 gm, 50 mL, Inactive [place] [...] as: No Longer [place] Cortef) Active 2015 [facility] Multihance 529 Notes: Same as No Longer [place] mg/mL Multihance Active [address] [place] [address] Hydrocortisone Notes: (Same as: Inactive [place] Cortef) 2016 [facility] Ativan Notes: (Same as: Inactive [place] as Ativan) 2016 [facility] normal saline 1,000 mL, Rate: No Longer [place] 0.9% IV 1,000 mL 75 ml/hr, Infuse Active 2015 Medical over: 13.3 hr, Center Route: IV, Dosing Weight 76.818 kg, Total Volume: 1,000, Start date: 05/11/15 16:24:00, Duration: 30 day, Stop date: 06/10/15 16:23:00 Ativan Notes: (Same as: Inactive [place] as Ativan) 2015 Medical Center Versed 2 mg, Route: IM, Inactive [place] as ONCE, Dosing 2015 Medical Weight 76.818, Center kg, Start date: 05/11/15 11:27:00, Stop date: 05/11/15 11:27:00 Versed Notes: (Same as: [place] Longer [place] Versed) Active 2016 [facility] lamotrigine 200 400 mg = 2 tab, No Longer [place] MG Oral Tablet PO, BID Active 2016 [facility] lamotrigine 200 Notes: (Same No Longer [facility] [place] MG Oral Tablet as:LaMICtal) Active [address] [facility] Thyroxine Notes: Take 1 No Longer [place] as hour before or 2 Active 2015 Medical hours after [place] meal; Enteral feeds may interefere with the absorption of this medication. (Same as:Levothroid) Sertraline Notes: (Same as: No Longer [place] Zoloft) Active 2016 [facility] Levetiracetam Notes: (Same No Longer [place] 1000 MG Oral as:Keppra) Active 2016 [facility] Clonazepam Notes: (Same As: No Longer [place] KlonoPIN) Active 2016 [facility] pneumococcal Notes: (Same as: Inactive [facility] capsular Pneumovax 23) 2016 [facility] polysaccharide Refrigerate Cente r type 1 vaccine / pneumococcal capsular polysaccharide type 10A vaccine / pneumococcal capsular polysaccharide type 11A vaccine / pneumococcal capsular polysaccharide type 12F vaccine / pneumococcal capsular polysacchar heparin sodium, Notes: porcine No Longer [facility] porcine 2500 heparin Active 2015 [facility] Injectable Solution Versed Notes: (Same as: No Longer [place] Versed) Active 2015 Medical MEDICATION WASTE Center Product Size: 2 mg Product Wasted: _1__ mg Saline Flush Notes: (Same as: No Longer [place] 0.9% BD Posiflush) Active 2016 [facility] Acetaminophen 1,000 mg = 2 No Longer [place] 500 MG Oral tab, PO, Q4H, Active 2015 Medica l Tablet [Tylenol] PRN Pain, # 120 Center tab, 0 Refill(s) Saline Flush Notes: (Same as: No Longer [facility] [place] 0.9% BD Posiflush) Active 2016 [facility] lamotrigine 200 See No Longer [place] as MG Oral Tablet Instructions, 1 Active 2015 edical tab PO Daily, 1 Center Refill(s) levothyroxine 125 microgram = No Longer [facility] 125 mcg (0.125 1 tab, PO, Active 2015 Medica l mg) oral tablet Daily, # 30 tab, Center 0 Refill(s) clonazePAM 0.5 0.5 mg = 1 tab, No Longer [place] mg oral tablet PO, BID, # 30 Active 2015 Med ical tab, 0 Refill(s) Center sertraline 100 100 mg = 1 tab, No Longer [facility] mg oral tablet PO, Daily, # 30 Active 2015 edical tab, 0 Refill(s) Center Levetiracetam 1,000 mg = 1 No Longer [place] 1000 MG Oral tab, PO, BID, # Active 2015 Med ical Tablet 30 tab, 0 Center Refill(s) Allergies, Adverse Reactions, Alerts Substance Category Reaction Severity Reaction Status Date Comments S ource type Reported penicillins Assertion Drug Active [facility] seafood Assertion Drug Active [facility] as allergy [facility] iodine Assertion Drug Active [facility] as topical allergy [facility] Immunizations Immunization Date Given Site Status Last Comments Source Updated pneumococcal 05/11/2015 Right completed Iyamu Parth as 23-valent vaccine Deltoid [facility] Results Order Name Results Value Reference Date Interpretation Comments Delfina rce Range CHEM PANEL Creatinine 0.89 0.50 - 12 [facility] Lvl 1.40 /2019 [facility] CHEM PANEL eGFR 78 04/06 Result [facility] Comment: The Medical eGFR is Center calculated [...] should be multiplied by the estimated BMI. ENDOCRINOLO hCG Tot <1 04/06 [facility] IMMUNOLOGY Coronavirus Not Detected Not 04/06 [place] (COVID-19) (04/06/20 6:31 AM) [place] dical [facility] CHEM PANEL Glucose Lvl 119 70 - 99 08/ [facility] CHEM PANEL BUN 15 7 - 22 08/ [address] CHEM PANEL Creatinine 0.92 0.50 - 08 [facility] Lvl 1.40 [facility] CHEM PANEL Sodium Lvl 139 135 - 145 08/ [address] CHEM PANEL Potassium Lvl 3.4 3.5 - 5.1 12/07 [place] [facility] CHEM PANEL Chloride Lvl 105 95 - 109 12/07 [facility] CHEM PANEL CO2 28 24 - 32 08/ [address] CHEM PANEL Calcium Lvl 9.2 8.5 - 10.5 / [facility] as [facility] CHEM PANEL AGAP 9.4 10.0 - 08 [facility] 20.0 [facility] CHEM PANEL eGFR 75 08 [facility] Comment: The Medical eGFR is Center calculated [...] should be multiplied by the estimated BMI. HEMATOLOGY Segs 79.4 45.0 - 08/06 [place] 75.0 /[address] [place] [address] HEMATOLOGY Lymphocytes 16.0 20.0 - 08/06 [place] 40.0 /2020 [facility] HEMATOLOGY Monocytes 4.3 2.0 - 12.0 08/[address] HEMATOLOGY Basophils 0.3 0.0 - 1.0 08/ [address] HEMATOLOGY Neutrophils # 7.4 1.5 - 8.1 08/ [facility] [address] HEMATOLOGY Lymphocytes # 1.5 1.0 - 5.5 08/ [facility] [address] HEMATOLOGY Monocytes # 0.4 0.0 - 0.8 08/ [place] [address] HEMATOLOGY WBC 9.3 3.7 - 10.4 08/ [address] HEMATOLOGY RBC 4.33 4.20 - 08/06 [facility] 5.40 /2020 [facility] HEMATOLOGY Hgb 12.6 12.0 - 08/06 [facility] 16.0 /2020 [facility] HEMATOLOGY Hct 37.3 36.0 - 08/ [facility] [facility] 48.0 /[address] [place] [address] HEMATOLOGY MCV 86.2 80.0 - 08/06 [facility] 98.0 /[address] [place] [address] HEMATOLOGY MCH 29.2 27.0 - 08/06 [facility] 31.[address] HEMATOLOGY MCHC 33.8 32.0 - 08/06 [facility] 36.0 /[address] [place] [address] HEMATOLOGY RDW 13.8 11.5 - 08/06 [facility] 14.5 /[address] [place] [address] HEMATOLOGY Platelet 254 133 - [address] HEMATOLOGY MPV 8.0 7.4 - 10.4 12/[address] URINE CHEM U Preg Negative Negative 12/07 [facility] (12/07/19 7:14 PM) [address] URINE AND UA Color Yellow Yellow 12/05 [facility] STOOL *NA* /[address] [place] [address] (12/06/19 9:26 AM) [place] URINE AND UA Turbidity Slight Clear 12/05 [facility] STOOL *ABN* /[address] [place] [address] (12/06/19 9:26 AM) [place] URINE AND UA Spec Grav 1.009 <=1.030 12/[address] URINE AND UA pH 7.0 5.0 - 8.0 12/[address] URINE AND UA Protein Negative Negative 12/05 [facility] STOOL mg/dL mg/dL /[address] [place] [address] URINE AND UA Glucose Negative Negative 12/05 [facility] mg/dL mg/dL /[address] [place] [address] URINE AND UA Ketones Negative Negative 12/05 [facility] mg/dL mg/dL /[address] [place] [address] URINE AND UA Bili Negative Negative 12/05 [facility] *NA* /[address] [place] [address] (12/06/19 9:26 AM) [place] URINE AND UA Blood Small Negative 12/05 [facility] *ABN* /[address] [place] [address] (12/06/19 9:26 AM) [place] URINE AND UA <1.0 0.1 - 1.0 12/05 [facility] Urobilinogen /[address] [place] [address] URINE AND UA Nitrite Negative Negative 12/05 [facility] (12/06/19 9:26 AM) /[address] [place] [address] URINE AND UA Leuk Est Large Negative 12/05 [facility] *ABN* /[address] [place] [address] (12/06/19 9:26 AM) [place] URINE AND UA Sq Epi Occasional Few /LPF 12/05 [facility] STOOL /LPF /[address] [place] [address] URINE AND UA WBC 1 0 - 5 12/[address] URINE AND UA RBC 1 0 - 2 12/[address] URINE AND UA Bacteria Occasional None Seen 12/05 [facility] STOOL /HPF /HPF /[address] [place] [address] IMMUNOLOGY Coronavirus Not Detected Not 12/05 [place] (COVID-19) (12/06/19 4:39 AM) Detected /2019 Med [facility] CHEM PANEL Glucose Lvl 128 70 - 99 12/[address] CHEM PANEL BUN 7 7 - 22 12/[address] CHEM PANEL Creatinine 0.92 0.50 - 12/05 [facility] Lvl 1.40 /[address] [place] [address] CHEM PANEL Sodium Lvl 136 135 - 145 12/[address] CHEM PANEL Potassium Lvl 4.7 3.5 - 5.1 12/05 [place] [address] CHEM PANEL Chloride Lvl 105 95 - 109 12/05 [facility] s [address] CHEM PANEL CO2 22 24 - 32 12/[address] CHEM PANEL Calcium Lvl 9.4 8.5 - 10.5 12/05 [facility] /[address] [place] [address] CHEM PANEL AGAP 13.7 10.0 - 12/05 [place] 20.0 [facility] CHEM PANEL eGFR 75 08 Result Comment: The Medical eGFR is Center [...] multiplied by the estimated BMI. CHEM PANEL Lactic Acid 1.1 0.5 - 2.2 12/05 [facility] Lvl [facility] HEMATOLOGY WBC X 10x3 4.5 3.7 - 10.4 12/05 [facility] HEMATOLOGY RBC X 10x6 4.87 4.20 - 12/05 [facility] 5.40 [facility] HEMATOLOGY Hgb 14.4 12.0 - 12/05 [facility] 16.0 [facility] HEMATOLOGY Hct 42.4 36.0 - 12/05 [facility] 48.0 [facility] HEMATOLOGY MCV 87.0 80.0 - 12/05 [facility] 98.0 [facility] HEMATOLOGY MCH 29.5 27.0 - 08 [place] 31.0 [facility] HEMATOLOGY MCHC 33.9 32.0 - 08 [place] 36.0 [facility] HEMATOLOGY RDW 13.9 11.5 - 12/05 [facility] 14.5 [facility] HEMATOLOGY Platelet 231 133 - [address] HEMATOLOGY MPV 7.3 7.4 - 10.4 12/[address] HEMATOLOGY PT 12.1 12.0 - 08 [place] 14.7 [facility] HEMATOLOGY INR 0.90 0.85 - 12/05 [place] 1.17 /2019 [facility] HEMATOLOGY PTT 26.2 22.9 - 08 [place] 35.8 /2019 [facility] HEMATOLOGY ACT (TEG) 97 86 - 118 12/05 [place] /2019 [facility] HEMATOLOGY [place] 0.4 12/05 [place] [facility] /2019 [facility] HEMATOLOGY R-time Rapid 0.5 0.4 - 0.7 12/05 [facility] HEMATOLOGY K-time Rapid 3.0 0.6 - 2.3 12/05 [facility] /2019 [facility] HEMATOLOGY Angle Rapid 71 64 - 80 12/[address] HEMATOLOGY Max Amplitude 49 52 - 71 12/05 [place] [facility] HEMATOLOGY G-value Rapid 4.8 5.0 - 11.6 12/05 [place] [facility] HEMATOLOGY Estimated % 0.0 0.0 - 7.5 12/05 [place] [facility] HEMATOLOGY RBC Morph Normal Normal 12/05 [facility] (12/06/19 2:59 AM) /2019 [facility] HEMATOLOGY Plt Morph Normal Normal 12/05 [facility] (12/06/19 2:59 AM) /2019 [facility] HEMATOLOGY Segs 75.9 45.0 - 12/05 [facility] 75.0 [facility] HEMATOLOGY Lymphocytes 21.3 20.0 - 08 [place] 40.0 /2019 [facility] HEMATOLOGY Monocytes 2.3 2.0 - 12.0 12/[address] HEMATOLOGY Eosinophils 0.1 0.0 - 4.0 12/05 [facility] HEMATOLOGY Basophils 0.4 0.0 - 1.0 12/05 [facility] HEMATOLOGY Neutrophils # 3.4 1.5 - 8.1 12/05 [place] [facility] HEMATOLOGY Lymphocytes # 1.0 1.0 - 5.5 12/05 [place] /[address] [place] [address] HEMATOLOGY Monocytes # 0.1 0.0 - 0.8 12/05 [facility] BLOOD BANK ABO/Rh O NEG 12/05 [facility] RESULTS [facility] BLOOD BANK Antibody Scrn Negative 12/05 [facility] as RESULTS (12/06/19 2:58 AM) /[address] [place] [address] CHEM PANEL eGFR 96 07/04 Result Comment: [...] Calcium Lvl 8.1 8.5 - 10.5 07/04 [facility] CHEM PANEL CO2 26 24 - 32 07/04 [facility]2015 [facility] CHEM PANEL Creatinine 0.77 0.50 - 07/04 [facility] Lvl 1.40 [facility] CHEM PANEL BUN 3 7 - 22 07/04 [facility]2015 [facility] CHEM PANEL Potassium Lvl 3.1 3.5 - 5.1 07/04 [place] [facility] CHEM PANEL Sodium Lvl 143 135 - 145 07/04 [facility] CHEM PANEL Glucose Lvl 116 70 - 99 07/04 2015 [facility] CHEM PANEL Chloride Lvl 108 95 - 109 07/04 [facility] CHEM PANEL AGAP 12.1 10.0 - 07/04 [place] 20.0 [facility] HEMATOLOGY Plt Morph Normal 07/04 [facility] (07/05/15 3:46 PM) [facility] HEMATOLOGY Tot Cell Ct 100 07/04 [facility] HEMATOLOGY Atypical 0.0 <=0.0 % 07/04 [facility] Lymphs [facility] HEMATOLOGY RBC Morph Normal 07/04 [facility] (07/05/15 3:46 PM) [facility] HEMATOLOGY Lymphocytes 40.0 20.0 - 07/04 [place] 40.0 [facility] HEMATOLOGY Monocytes 4.0 2.0 - 12.0 07/04 [facility] HEMATOLOGY Segs-Bands # 3.5 1.5 - 8.1 03 [facility] /2015 [facility] HEMATOLOGY Lymphocytes # 2.5 1.0 - 5.5 07/04 [place] /2015 [facility] HEMATOLOGY Monocytes # 0.2 0.0 - 0.8 07/04 [place] /2015 [facility] HEMATOLOGY Segs 56.0 45.0 - 07/04 [place] 75.0 /2016 [facility] HEMATOLOGY Bands 0.0 0.0 - 11.0 07/04 [facility] HEMATOLOGY RDW 15.8 11.5 - 07/04 [place] 14.5 /2016 [facility] HEMATOLOGY MPV 6.9 7.4 - 10.4 07/04 [facility] HEMATOLOGY Platelet 357 133 - 450 07/04 [facility] HEMATOLOGY MCV 83.1 80.0 - 07/04 [place] 98.0 /2015 [facility] HEMATOLOGY RBC 3.91 4.20 - 07/04 [place] 5.40 /2015 [facility] HEMATOLOGY WBC 6.2 3.7 - 10.4 07/04 [facility] HEMATOLOGY Hct 32.5 36.0 - 07/04 [place] 48.0 /2015 [facility] HEMATOLOGY Hgb 10.8 12.0 - 07/04 [place] 16.0 /2015 [facility] HEMATOLOGY MCHC 33.2 32.0 - 07/04 [place] 36.0 /2015 [facility] HEMATOLOGY MCH 27.6 27.0 - 07/04 [place] 31.0 /2015 [facility] URINE AND UA Leuk Est Negative Negative 07/04 [facility] STOOL (07/05/15 3:19 PM) /2015 [facility] URINE AND UA Nitrite Negative Negative 07/04 [facility] STOOL (07/05/15 3:19 PM) /2015 [facility] URINE AND UA 0.2 0.1 - 1.0 07/04 [facility] STOOL Urobilinogen /2015 [facility] URINE AND UA Blood Negative Negative 07/04 [facility] STOOL (07/05/15 3:19 PM) /2015 [facility] URINE AND UA Bili Negative Negative 07/04 [facility] STOOL *NA* /2015 [facility] (07/05/15 3:19 PM) Center URINE AND UA Ketones Negative Negative 07/04 [facility] STOOL mg/dL mg/dL /2015 [facility] URINE AND UA Glucose Negative Negative 07/04 [facility] STOOL mg/dL mg/dL /2016 [facility] URINE AND UA Protein Negative Negative 07/04 [facility] STOOL mg/dL mg/dL [facility] URINE AND UA pH 7.0 5.0 - 8.0 07/04 [facility] URINE AND UA Spec Grav 1.015 <=1.030 07/04 [facility] URINE AND UA Turbidity Clear Clear 07/04 [facility] (07/05/15 3:19 PM) [facility] URINE AND UA Color Yellow Yellow 07/04 [facility] *NA* /2015 [facility] (07/05/15 3:19 PM) [place] URINE AND UA Sq Epi None Seen Few 07/04 [facility] (07/05/15 3:19 PM) [facility] CHEM PANEL eGFR 93 05/27 Result Comment: [facility] eGFR is Center calculated using the CKD-EPI [...] Lvl 3.3 3.5 - 5.1 05/27 [place] [facility] CHEM PANEL Sodium Lvl 142 135 - 145 05/27 [facility] CHEM PANEL Creatinine 0.80 0.50 - 05/27 [facility] Lvl 1.40 [facility] CHEM PANEL Calcium Lvl 8.6 8.5 - 10.5 05/27 [place] [facility] CHEM PANEL CO2 27 24 - 32 05/27 [facility] CHEM PANEL AGAP 13.3 10.0 - 05/27 [place] 20.0 [facility] CHEM PANEL Chloride Lvl 105 95 - 109 05/27 [facility] CHEM PANEL Glucose Lvl 93 70 - 99 05/27 2015 [facility] CHEM PANEL BUN 14 7 - 22 05/27 2015 [facility] CHEM PANEL Bili Total 0.3 0.2 - 1.3 05/27 2015 [facility] CHEM PANEL Globulin 3.3 2.0 - 4.0 05/27 2015 [facility] CHEM PANEL Bili Direct 0.1 0.0 - 0.3 05/27 [facility] CHEM PANEL Alk Phos 190 39 - 136 05/27 2015 [facility] CHEM PANEL AST 31 0 - 37 05/27 2015 [facility] CHEM PANEL Albumin Lvl 3.4 3.5 - 5.0 05/27 [facility] CHEM PANEL ALT 112 0 - 65 05/27 2015 [facility] CHEM PANEL Bili Indirect 0.2 0.0 - 1.0 05/27 [facility] CHEM PANEL A/G Ratio 1.0 0.7 - 1.6 05/27 2015 [facility] CHEM PANEL Total Protein 6.7 6.4 - 8.4 05/27 [facility] CHEM PANEL A/G Ratio 0.9 0.7 - 1.6 05/25 2015 [facility] CHEM PANEL Globulin 3.8 2.0 - 4.0 05/25 2015 [facility] CHEM PANEL AGAP 11.1 10.0 - 05/25 20. [facility] CHEM PANEL B/C Ratio 23 6 - 25 05/25 [facility] CHEM PANEL eGFR 105 05/25 [facility] Comment: The Medical eGFR is Center calculated [...] Chloride Lvl 108 95 - 109 05/25 [facility] CHEM PANEL Creatinine 0.71 0.50 - 05/25 [facility] Lvl 1.40 [facility] CHEM PANEL Potassium Lvl 4.1 3.5 - 5.1 05/25 [facility] CHEM PANEL CO2 24 24 - 32 05/25 2015 [facility] CHEM PANEL Sodium Lvl 139 135 - 145 05/25 [facility]2015 [facility] CHEM PANEL Albumin Lvl 3.3 3.5 - 5.0 05/25 [facility] CHEM PANEL ALT 187 0 - 65 05/25 2015 [facility] CHEM PANEL AST 50 0 - 37 05/25 [facility]2015 [facility] CHEM PANEL Calcium Lvl 8.2 8.5 - 10.5 05/25 [facility] CHEM PANEL Total Protein 7.1 6.4 - 8.4 05/25 [facility] CHEM PANEL Bili Total 0.4 0.2 - 1.3 05/25 [facility]2015 [facility] CHEM PANEL Alk Phos 238 39 - 136 05/[address] CHEM PANEL Glucose Lvl 111 70 - 99 05/25 2015 [facility] CHEM PANEL BUN 16 7 - 22 05/25 2015 [facility] HEMATOLOGY Lymphocytes 14.9 20.0 - 05/25 [place] 40.0 [facility] HEMATOLOGY Monocytes 3.4 2.0 - 12.0 05/25 [facility]2015 [facility] HEMATOLOGY Eosinophils 0.1 0.0 - 4.0 05/25 [facility] HEMATOLOGY Basophils 0.2 0.0 - 1.0 05/25 [facility]2015 [facility] HEMATOLOGY Lymphocytes # 1.3 1.0 - 5.5 05/25 [facility] HEMATOLOGY Monocytes # 0.3 0.0 - 0.8 05/25 [facility] HEMATOLOGY Segs-Bands # 6.9 1.5 - 8.1 05/25 [facility] HEMATOLOGY Segs 81.4 45.0 - 05/25 [facility] 75.0 /2015 [facility] HEMATOLOGY RBC 4.66 4.20 - 05/25 [place] 5.40 /2015 [facility] HEMATOLOGY Hct 39.4 36.0 - 05/25 [place] 48.0 /2015 [facility] HEMATOLOGY Hgb 13.1 12.0 - 05/25 [place] 16.0 [facility] HEMATOLOGY WBC 8.5 3.7 - 10.4 05/25 [facility] HEMATOLOGY MCHC 33.2 32.0 - 05/25 [place] 36.0 /2015 [facility] HEMATOLOGY MCH 28.1 27.0 - 05/25 [place] 31.0 [facility] HEMATOLOGY MCV 84.5 80.0 - 05/25 [place] 98.0 [facility] HEMATOLOGY MPV 7.8 7.4 - 10.4 05/25 2015 [facility] HEMATOLOGY Platelet 328 133 - 450 05/25 [facility] HEMATOLOGY RDW 15.9 11.5 - 05/25 [place] 14.5 [facility] CHEM PANEL ALT 266 0 - 65 05/24 2015 [facility] CHEM PANEL A/G Ratio 1.0 0.7 - 1.6 05/24 [facility] CHEM PANEL AST 96 0 - 37 05/24 [facility] CHEM PANEL Calcium Lvl 9.1 8.5 - 10.5 05/24 [facility] CHEM PANEL Alk Phos 289 39 - 136 05/24 [facility] CHEM PANEL Bili Total 0.6 0.2 - 1.3 05/24 [facility] CHEM PANEL eGFR 83 05/24 [facility] Comment: The Medical eGFR is Center calculated [...] Total Protein 7.4 6.4 - 8.4 05/24 [facility] CHEM PANEL B/C Ratio 25 6 - 25 05/24 2015 [facility] CHEM PANEL Albumin Lvl 3.7 3.5 - 5.0 05/24 [facility] CHEM PANEL AGAP 15.6 10.0 - 05/24 20.0 [facility] CHEM PANEL Globulin 3.7 2.0 - 4.0 05/24 [facility] CHEM PANEL Creatinine 0.87 0.50 - 05/24 [facility] Lvl 1.40 [facility] CHEM PANEL CO2 22 24 - 32 05/24 2015 [facility] CHEM PANEL Chloride Lvl 103 95 - 109 05/24 [facility] CHEM PANEL Potassium Lvl 3.6 3.5 - 5.1 05/24 [facility] CHEM PANEL Sodium Lvl 137 135 - 145 05/24 2015 [facility] CHEM PANEL BUN 22 7 - 22 05/24 2015 [facility] CHEM PANEL Glucose Lvl 140 70 - 99 05/24 [facility] HEMATOLOGY Basophils # 0.1 0.0 - 0.2 05/24 [facility] HEMATOLOGY Segs 81.5 45.0 - 05/24 [facility] 75.0 [facility] HEMATOLOGY Monocytes # 0.7 0.0 - 0.8 05/24 [facility] HEMATOLOGY Segs-Bands # 11.3 1.5 - 8.1 05/24 [facility] HEMATOLOGY Basophils 0.5 0.0 - 1.0 05/24 2015 [facility] HEMATOLOGY Lymphocytes # 1.7 1.0 - 5.5 05/24 [facility] HEMATOLOGY Lymphocytes 12.4 20.0 - 05/24 [place] 40.0 [facility] HEMATOLOGY Eosinophils 0.4 0.0 - 4.0 05/[facility] HEM[facility] Monocytes 5.2 2.0 - 12.0 05/24 [facility] HEMATOLOGY MPV 8.1 7.4 - 10.4 05/24 [facility] HEMATOLOGY WBC 13.9 3.7 - 10.4 05/24 [facility] HEMATOLOGY RDW 15.6 11.5 - 05/24 [place] 14.5 [facility] HEMATOLOGY Platelet 387 133 - 450 05/24 [facility] HEMATOLOGY RBC 5.06 4. - 05/24 [place] 5.40 [facility] HEMATOLOGY MCHC 32.2 32.0 - 05/24 [place] 36.0 [facility] HEMATOLOGY MCH 26.5 27.0 - 05/24 [place] 31.0 [facility] HEMATOLOGY Hct 41.6 36.0 - 05/24 [place] 48.0 [facility] HEMATOLOGY MCV 82.1 80.0 - 05/24 [place] 98.0 [facility] HEMATOLOGY Hgb 13.4 12.0 - 05/24 [place] 16.0 [facility] HEMATOLOGY RDW 15.5 11. - 05/23 [place] 14.5 [facility] HEMATOLOGY MCHC 33.2 32.0 - 05/23 [place] 36.0 [facility] HEMATOLOGY MPV 7.7 7.4 - 10.4 05/23 [facility] HEMATOLOGY Platelet 384 133 - 450 05/23 [facility] HEMATOLOGY WBC 11.3 3.7 - 10.4 05/23 [facility] HEMATOLOGY MCV 82.5 80.0 - 05/23 [place] 98.0 2016 [facility] HEMATOLOGY MCH 27.4 27.0 - 05/23 [place] 31.0 2016 [facility] HEMATOLOGY RBC 5.00 4.20 - 05/23 [place] 5.40 [facility] HEMATOLOGY Hct 41.3 36.0 - 05/23 [place] 48.0 2016 [facility] HEMATOLOGY Hgb 13.7 12.0 - 05/23 [place] 16.0 /2016 [facility] HEMATOLOGY Segs-Bands # 7.8 1.5 - 8.1 05/23 [facility] HEMATOLOGY Lymphocytes # 2.5 1.0 - 5.5 05/23 [place] [facility] HEMATOLOGY Segs 67.0 45.0 - 05/23 [place] 75.0 [facility] HEMATOLOGY Monocytes # 0.6 0.0 - 0.8 05/23 [place] [facility] HEMATOLOGY Monocytes 5.0 2.0 - 12.0 05/23 [facility] HEMATOLOGY Myelocytes 3.0 <=0.0 % 05/23 [facility] HEMATOLOGY Metamyelocyte 1.0 0.0 - 1.0 05/23 [facility] [place] [facility] HEMATOLOGY RBC Morph Normal 05/23 [facility] (05/23/15 3:17 PM) /2015 [facility] HEMATOLOGY Plt Morph Normal 05/23 [facility] (05/23/15 3:17 PM) /2015 [facility] HEMATOLOGY Atypical 0.0 <=0.0 % 05/23 [facility] Lymph [facility] HEMATOLOGY Bands 2.0 0.0 - 11.0 05/23 [facility] HEMATOLOGY Lymphocytes 22.0 20.0 - 05/23 [place] 40.0 [facility] HEMATOLOGY Tot Cell Ct 100 05/23 [facility] CHEM PANEL B/C Ratio 33 6 - 25 05/23 [facility] HEMATOLOGY Basophils 0.5 0.0 - 1.0 05/21 [facility] HEMATOLOGY Basophils # 0.1 0.0 - 0.2 05/21 [facility] HEMATOLOGY Eosinophils 0.3 0.0 - 4.0 05/21 [facility] CHEM PANEL Magnesium Lvl 2.4 1.8 - 2.4 05/15 [place] [facility] CHEM PANEL Phosphorus 1.7 2.5 - 4.5 05/15 [facility] HEMATOLOGY Plt Morph Normal 05/15 [facility] (05/15/15 4:27 AM) /2015 [facility] HEMATOLOGY RBC Morph Normal 05/15 [facility] (05/15/15 4:27 AM) /2015 [facility] HEMATOLOGY INR 1.24 0.85 - 05/15 [place] 1.17 [facility] HEMATOLOGY PT 15.9 12.0 - 05/15 [place] 14.7 [facility] CHEM PANEL Magnesium Lvl 2.2 1.8 - 2.4 05/14 [facility] CHEM PANEL Phosphorus 2.1 2.5 - 4.5 05/14 [facility] ENDOCRINOLO Cortisol Free <0.03 05/13 Result [facility] Comment: Medical
Adult Center Reference Ranges for Cortisol, Free,
LC/MS/MS:<br/ >
8:00 - 10:00 AM 0.07-0.93 mcg/dL
4:00 - 6:00 PM 0.04-0.45 mcg/dL
10:00 - 11:00 PM 0.04-0.35 mcg/dL
Te st Performed at:
[facility] [place]<br/ >[id number] [facility]
[place] [address] Jarad Moran MD, PhD CHEM PANEL Magnesium Lvl 2.2 1.8 - 2.4 05/13 [facility] CHEM PANEL Phosphorus 3.2 2.5 - 4.5 05/13 2015 [facility] HEMATOLOGY PT 17.0 12.0 - 05/13 [place] 14.7 [facility] HEMATOLOGY PTT 53.3 22.9 - 05/13 [facility] 35.8 [facility] HEMATOLOGY INR 1.35 0.85 - 05/13 [place] 1.17 [facility] HEMATOLOGY Polychrom slight 05/13 2015 [facility] HEMATOLOGY Hypochrom 1+ None Seen 05/13 [facility] (05/13/15 3:21 AM) /2015 [facility] [place] HEMATOLOGY Anisocyte 1+ None Seen 05/13 [facility] *ABN* [facility] (05/13/15 3:21 AM) Center HEMATOLOGY Eosinophils # 0.1 0.0 - 0.5 05/12 [facility] [place] [facility] DRUG SCREEN U Cannab Scr Negative Negative 05/12 [facility] [place] *NA* [facility] (05/11/15 6:25 PM) Center DRUG SCREEN U Opiate Scr Negative Negative 05/12 [place] *NA* [facility] (05/11/15 6:25 PM) Center DRUG SCREEN U Cocaine Scr Negative Negative 05/12 [place] *NA* [facility] (05/11/15 6:25 PM) Center DRUG SCREEN U Phencyc Scr Negative Negative 05/12 [place] *NA* Medical (05/11/15 6:25 PM) Center DRUG SCREEN UDS Note See Note 05/12 [facility] (05/11/15 6:25 PM) [facility] DRUG SCREEN U Benzodia Positive Negative 05/12 [place] *ABN* [facility] (05/11/15 6:25 PM) Center DRUG SCREEN U Amph Scr Negative Negative 05/12 [place] *NA* [facility] (05/11/15 6:25 PM) Center DRUG SCREEN U Amanda Scr Negative Negative 05/12 [place] *NA* [facility] (05/11/15 6:25 PM) Center URINE AND UA Sq Epi None Seen 05/12 [facility] STOOL [facility] URINE AND UA RBC <1 0 - 2 05/12 [facility] URINE AND UA Mucus Few /LPF None Seen 05/12 [facility] STOOL /LPF /2015 [facility] URINE AND UA WBC 1 0 - 5 05/12 [facility] STOOL [facility] URINE AND UA Leuk Est Negative Negative 05/12 [facility] (05/11/15 6:25 PM) /2015 [facility] URINE AND UA pH 6.0 5.0 - 8.0 05/12 [facility] /2015 [facility] URINE AND UA Spec Grav 1.019 <=1.030 05/12 [facility] /2015 [facility] URINE AND UA Nitrite Negative Negative 05/12 [facility] (05/11/15 6:25 PM) /2015 [facility] URINE AND UA Blood Negative Negative 05/12 [facility] (05/11/15 6:25 PM) /2015 [facility] URINE AND UA 2.0 0.1 - 1.0 05/12 [facility] Urobilinogen /2015 [facility] URINE AND UA Ketones 60 mg/dL Negative 05/12 [facility] STOOL mg/dL [facility] URINE AND UA Bili Negative Negative 05/12 [facility] STOOL *NA* Medical (05/11/15 6:25 PM) Center URINE AND UA Protein 20 mg/dL Negative 05/12 [facility] STOOL mg/dL /2015 [facility] URINE AND UA Glucose Negative Negative 05/12 [facility] STOOL mg/dL mg/dL [facility] URINE AND UA Turbidity Clear Clear 05/12 [facility] (05/11/15 6:25 PM) [facility] URINE AND UA Color Yellow Yellow 05/12 [facility] STOOL *NA* /2015 [facility] (05/11/15 6:25 PM) Center URINE CHEM U Preg Negative Negative 05/12 [facility] (05/11/15 6:25 PM) [facility] ENDOCRINOLO Cortisol Free 0.07 05/12 Result [facility] Comment: Medical
Adult Center Reference Ranges for Cortisol, Free,
LC/MS/MS:<br/ >
8:00 - 10:00 AM 0.07-0.93 mcg/dL
4:00 - 6:00 PM 0.04-0.45 mcg/dL
10:00 - 11:00 PM 0.04-0.35 mcg/dL
Te st Performed at:
[employer]<br/ >[address] [place] [address]
[place] [address] Jarad Moran MD, PhD PARATHYROID Ca Norm WB 1.08 1.05 - 05/12 [facility] PROFILE . [facility] PARATHYROID Ca Ion WB 1.11 . - 05/12 [facility] PROFILE 05.28 [facility] TOXICOLOGY Keppa Lvl 41 05/12 Result Comment: [facility] Levels:
Drug Dosage Trough (mcg/mL) Peak (mcg/mL)
500 mg BID 3.1 - 10.0 10.0 - 25.0
1000 mg BID 4.9 - 37.1 30.0 - 40.0
1500 mg BID 7.0 - 34.0 36.1 - 70.0

Toxic level not established<b r/>Test Performed at:
[facility], [address] [place] [address] Som Purvis MD, FCAP HEMATOLOGY Basophils # 0.1 0.0 - 0.2 05/11 [place] [facility] HEMATOLOGY Eosinophils # 0.2 0.0 - 0.5 05/11 [place] [facility] TOXICOLOGY Lamotrigine 38.4 4.0 - 18.0 05/10 Result [facility] Comment: Test Medical Performed Center at:
[facility] [place]
[facility], [address] [place] [address] Road
[place] [address] Som Purvis MD, FCAP HEMATOLOGY Eosinophils # 0.2 0.0 - 0.5 05/10 [place] [facility] CHEM PANEL Lactic Acid 0.9 0.5 - 2.2 05/10 [place] [facility] PARATHYROID Ca Norm WB 1.01 1. - 05/10 [place] PROFILE 1. [facility] PARATHYROID Ca Ion WB 0.98 . - 05/10 [place] PROFILE . [facility] TOXICOLOGY Lamotrigine 34.2 4.0 - 18.0 05/10 Result [facility] Comment: Test Medical Performed Center at:
[facility] [place]
[facility], [address] [place] [address]
[place] [address] Som Purvis MD, AP
Crit ical Result(s) called to JERRICA AKHTAR at _05/15/2015 17:38 by_CYTJONA. Read back OK.
Resul t Comment: Test Performed at:
[facility] [place]
[facility], [address] [place] [address]
[place] [address] Som Purvis MD, AP TOXICOLOGY Keppa Lvl 05/10 Result Comment: [facility] Levels:
Drug Dosage Trough (mcg/mL) Peak (mcg/mL)
500 mg BID 3.1 - 10.0 10.0 - 25.0
1000 mg BID 4.9 - 37.1 30.0 - 40.0
1500 mg BID 7.0 - 34.0 36.1 - 70.0

Toxic level not established<b r/>Test Performed at:
[facility] [place]
[facility], [address] [place] [address]
[place] [address] B Yaniv OTERO, FCAP Pathology Reports No Data Provided for This Section Diagnostic Reports Report Value Date Source Brain w contrast MRI EXAM: MRI BRAIN WITH CONTRAST 04/06/2020 [facility] DATE: 04/06/2020 09:50 [employer] Center INDICATION: '- Gamma Knife with GA'. 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 COMPARISON: MRI brain dated 01/27/2020 and 12/06/2019 and multiple MRIs dating back to 2002. TECHNIQUE: Axial postcontras t 3-D T1 weighted imaging was acquired through the brain. IV contrast: 20 cc MultiHance. FINDINGS: Limited sequence was acquired for chriss tment planning. Since 12/09/2019, the domina nt meningioma arising from the right middle cranial fossa with marked mass effect on the right temporal lobe has increased in size and now measures 4.7 x 4.1 cm in maximum ax ial diameter, previously wilder suring 4.0 x 3.2 cm on 12/09/2019. There again is marked mass effect on the right with right ventricular effacement and leftward midline shift. Slight increase in caliber of th e shunted ventricular system , most evident in the left lateral ventricle atria and temporal horn. The numerous other meningiom as have not increased in size. These again are seen along both frontal convexities, both temporal convexities, both parietal convexities, both tentorial leaflets, the right s madonna of the 4th ventricle, and the left internal auditory canal/CP angle. Involved skull base foramina include: -- The cribriform plates -- Both optic nerve canals -- The left greater than right orbital apex -- The left foramen rotundum and foramen ovale -- Left foramen lacerum -- Left internal auditory canal Circumferential encasement e nhancement around the left greater than right internal carotid artery again causes narrowing of the arterial lumen/enhancement. 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 The left sphenoid wing meningioma again causes mass effect on the left orbit. The left globe remains deformed and proptotic. Multiple areas of narrowing of the superior sagi ttal sinus. IMPRESSION: 1. Stealth protocol for treatment planning. 2. Continued slight increas e in size of the right temporal convexity meningioma protruding up to the right temporal lobe, compared to the 12/09/2019 exam. Unchanged associated mass effect. 3. Slight increase in size of the shunted ventr icular system. 4. Other grossly unchanged extensive intracranial meningiomas involving multiple skull base foramina. Unchanged bilateral optic nerve sheath meningiomas, left orbital apex angioma, and left sphenoid wi ng meningioma, with extensive left orbital mass effect and proptosis. 5. Unchanged multiple areas of narrowing of the superior sagittal sinus and internal carotid arteries. Brain wo contrast MRI EXAM: MRI BRAIN WITHOUT CONTRAST 0 [facility] DATE: 01/27/2020 11:49 CDT INDICATION: 44-year-old fema le with recurrent meningiomas, seizure disorder, blindness and deafness COMPARISON: Multiple MRI of the brain with the most recent study dated December 09, [address] brain dated December 05, 2019 TECHNIQUE: Noncontrast axial , sagittal and coronal images of the brain for gamma none. FINDINGS: Thin section MR im aging was performed for the purpose of intraprocedural localization with the patient in a stereotactic head frame. Limited noncontrast scan. Redemonstrated are postsurgical changes of multi ple prior craniotomies. The multiple dural based les ions throughout the supratentorial and infratentorial brain are largely unchanged in size and extent. The large dural masses along the vertex are seen encasing and infiltrati ng the superior sagittal sin us. The temporal convexity mass is demonstrated infiltration into the sphenoid wing. Findings of left optic nerve meningioma again noted. The posterior fossa meningiomas are seen extending into the left internal auditory canal and bilateral Meckel's caves. There is infiltration of the left cavernous sinus and multiple other neural foramina. The minimal leftward midline shift is unchanged. Multiple areas of encephalomalacia are seen scattered throughout the supratentorial brain. 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 A right occipital approach ventricular shunt catheter is seen terminating intraparenchymally within the midbrain. IMPRESSION: Images are adequate for intraprocedu ral localization. 1. Limited noncontrast scan . Stable multiple supratentorial and infratentorial dural based masses compared to the prior exam on 12/09/2019. 2. Unchanged ventricular si ze with the right occipital approach ventricular shunt catheter terminating within the midbrain. Skull 1 view DX EXAM: XR SKULL 1 VIEW 01/27/2020 [facility] edical DATE: 01/27/2020 at 0813 hours C enter INDICATION: - codman view COMPARISON: Radiographs 12/07/2019 TECHNIQUE: Lateral view of the skull FINDINGS: Right posterior ap proach ventriculoperitoneal shunt is again seen with tip near the midline on the AP view. The shunt catheter tubing appears intact. Shunt valve settings are unable to be determined on the provided images. Extensive postsurgical hunt es along the calvarium with multiple craniotomy and surgical plates not significantly changed from prior. Large external fixation device limits evaluation . IMPRESSION: Right-sided ventriculoperitoneal shunt. Brain w contrast CT EXAM: CT BRAIN WITHOUT CONTRAST 01/27/2020 [facility] DATE: 01/27/2020 7:24 AM CDT [facility] INDICATION: - Gamma Knife COMPARISON: MRI 12/09/2019 TECHNIQUE: Noncontrast axial imaging of the brain was acquired from the vertex to the skull base at 1 mm thickness. Coronal and sagittal reformatted images were generated. FINDINGS: Limited evaluation of the br ain parenchyma due to artifact originating in the head frame. No hydrocephalus. Known multiple meningi omas are more conspicuous by MRI exam. IMPRESSION: Stealth protocol for treatment plann ing. Brain w/wo contrast EXAM: MRI BRAIN WITH AND WITHOUT CONTRAST [facility] MRI DATE: 12/06/2019 4:38 CDT Center INDICATION: Multiple meningiomas ADDITIONAL INFORMATION: 44-y ear-old woman with recurrent meningiomas, seizure disorder, blindness and deafness. COMPARISON: Multiple MRIs of the brain dating back to 08/03/2002, with the most recent on 05/11/2015. Outside brain CT on 12/05/2019 TECHNIQUE: Multiplanar, mult isequence MRI of the brain with and without intravenous contrast. Axial postcontrast 3-D T1 weighted imaging was acquired through the brain. IV contrast: 13 mL MultiHance. FINDINGS: When compared with 05/11/2015, there is interval marked growth of the meningioma arising from the right temporal fossa which measures approximately 35 x 29 x 42 mm, with marked mass effect on the right te mporal lobe, with interval d evelopment of T2 FLAIR hyperintensity in the temporal lobe surrounding the mass. This mass is similar in size compared to CT on 12/05/2019. After accounting for differe nces in slice selection, the multiple meningiomas in the posterior fossa, left middle cranial fossa, and falx are stable to minimally enlarged compared to 05/11/2015. Multiple areas of decreased susceptib ility seen within the multiple meningiomas, likely representing calcifications. 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 Unchanged position of right posterior approach CREMATOR shunt, with tip in the left aspect of the midbrain. The ventricular size is stable compared to 05/11/2015. Diffusion-weighted images fail to demonstrate an y recent ischemic change. Postsurgical changes of mult iple craniotomies are again seen. No abnormality of the visualized paranasal sinuses. Compared with 05/11/2015, the left orbit is contracted, with development of enhancement i n the anterior chamber, and decreased T2 signal in the vitreous, which may represent blood products. Enhancement of the proximal two thirds of the left optic nerve may represent meningioma extension along the optic sheath. IMPRESSION: 1. When compared with 016, there is marked interval enlargement of a right middle cranial fossa meningioma, causing significant mass effect and edema in the right temporal lobe. 2. The other meningiomas ar e stable to minimally enlarged when compared with 05/11/2015. 3. Contraction of the left orbit compared to 05/11/2015, with possible blood products within the vitreous. Correlate with history of trauma or postprocedure change. 4. STEALTH protocol performed for treatment hossein nning Brain w contrast MRI EXAM: MRI BRAIN WITH AND WITHOUT CONTRAST 0 12/09/2019 [facility] DATE: 12/06/2019 4:38 CDT Center INDICATION: Multiple meningiomas ADDITIONAL INFORMATION: 44-y ear-old woman with recurrent meningiomas, seizure disorder, blindness and deafness. COMPARISON: Multiple MRIs of the brain dating back to 08/03/2002, with the most recent on 05/11/2015. Outside brain CT on 12/05/2019 TECHNIQUE: Multiplanar, mult isequence MRI of the brain with and without intravenous contrast. Axial postcontrast 3-D T1 weighted imaging was acquired through the brain. IV contrast: 13 mL MultiHance. FINDINGS: When compared with 05/11/2015, there is interval marked growth of the meningioma arising from the right temporal fossa which measures approximately 35 x 29 x 42 mm, with marked mass effect on the right te mporal lobe, with interval d evelopment of T2 FLAIR hyperintensity in the temporal lobe surrounding the mass. This mass is similar in size compared to CT on 12/05/2019. After accounting for differe nces in slice selection, the multiple meningiomas in the posterior fossa, left middle cranial fossa, and falx are stable to minimally enlarged compared to 05/11/2015. Multiple areas of decreased susceptib ility seen within the multiple meningiomas, likely representing calcifications. 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 Unchanged position of right posterior approach CREMATOR shunt, with tip in the left aspect of the midbrain. The ventricular size is stable compared to 05/11/2015. Diffusion-weighted images fail to demonstrate an y recent ischemic change. Postsurgical changes of mult iple craniotomies are again seen. No abnormality of the visualized paranasal sinuses. Compared with 05/11/2015, the left orbit is contracted, with development of enhancement i n the anterior chamber, and decreased T2 signal in the vitreous, which may represent blood products. Enhancement of the proximal two thirds of the left optic nerve may represent meningioma extension along the optic sheath. IMPRESSION: 1. When compared with 016, there is marked interval enlargement of a right middle cranial fossa meningioma, causing significant mass effect and edema in the right temporal lobe. 2. The other meningiomas ar e stable to minimally enlarged when compared with 05/11/2015. 3. Contraction of the left orbit compared to 05/11/2015, with possible blood products within the vitreous. Correlate with history of trauma or postprocedure change. 4. STEALTH protocol performed for treatment hossein nning Skull 2 views DX EXAM: XR SKULL 2 VIEWS 12/07/2019 [facility] DATE: 12/07/2019 11:49 CDT Center INDICATION: - shunt evaluation COMPARISON: Skull radiographs on 08/10/2019 TECHNIQUE: AP and lateral radiographs of the sk ull FINDINGS: Right posterior a pproach ventriculoperitoneal shunt with tip near midline on the AP view. Shunt catheter tubing appears intact, and extends along the right neck soft tissues. Unable to evalua te shunt valve setting on th e provided images. Extensive postsurgical changes of the skull with multiple craniotomy and surgical plates are unchanged compared to prior. No soft tissue abnormality is identified. IMPRESSION: Right-sided ventriculoperito marko shunt is again seen. The tubing appears intact where visualized. Skull 2 views DX EXAM: XR SKULL 2 VIEWS 12/06/2019 [facility] DATE: 12/06/2019 10:11 CDT Center INDICATION: - pre mri vp securities shunt eval COMPARISON: CT brain 12/05/2019. TECHNIQUE: AP and lateral radiographs of the sk ull [place] SECTION: ER FINDINGS: Right posterior a pproach ventriculoperitoneal shunt, with tip near midline on the AP view. The shunt tubing extends along the right neck soft tissues. Multiple small surgical clips versus coi ls in the region of the righ t middle cranial fossa. Extensive postsurgical changes of the skull with multiple prior craniotomies and surgical plates. No soft tissue abnormality is identified. IMPRESSION: Right right-erica ed ventriculoperitoneal shunt tube to the extent visualized appears intact. Spine-Outside Consult EXAM: CT CERVICAL SPINE WITHOUT CONTRAST 0 12/05/2019 [facility] CT DATE: 12/05/[address] INDICATION: -Fall following trauma transfer for higher level of care request for outside film interpretation CT cervical spine without contrast performed [facility]05[facility] COMPARISON: Magnetic resonance imaging of the ce rvical spine 05/16/2015 TECHNIQUE: Volumetric acqui sition of the cervical spine without contrast. Axial, sagittal and coronal reconstructions. IV contrast: None. DLP: Not provided DISCUSSION: The spine is imaged from the skull b ase to the level of T1/T2. There is kyphotic angulation at the level of C4-C5 accompanied by slight anterolisthesis of C3 upon C4 and C4 upon C5. Bridging anterior osteophyte formation with disc space narrowing is present at C4-C 7. There is narrowing of the AP dimension of the spinal canal at C4-C5, C5-C6 and C6-C7. These findings have not significantly changed compared to magnetic resonance imaging of cervical spine in May 2015. No acute fracture or malalignment of the cervica l spine is identified. Posterior clefts are present in the posterior arch of C1 and C2. Facet arthropathy is present at C2-C3 and C3-C4 bilaterally. Uncovertebral osteoarthritis is present at C4-C5 and C5-C6. There is bony encroachment narrowing of neurofor carl on the left at C3-C4 Coarse nuchal calcifications are present posteri ean at the level of C4-C6. Portions of a right-sided ve ntriculoperitoneal shunt catheter are in the soft tissues of the neck. IMPRESSION: No acute abnormality of the cervical spine. Kyphotic angulation at C4-C5 is accompanied by slight anterolisthesis of C3 upon C4 and C4 upon C5 as well as multilevel degenerative disc disease at C4-C7. Portions of a right-sided ve ntriculoperitoneal shunt catheter seen in the soft tissues of the neck. Brain-Outside Consult EXAM: CT HEAD WITHOUT CONTRAST 12/05/2019 [facility] DATE: Study was performed at outside hospital on 12/05/2019 at 2:52 PM and submitted for 2nd interpretation on 12/05/2019 11:36 PM CDT Center INDICATION: 44 years old Fem fredo patient with provided clinical indication of fall. TECHNIQUE: Outside hospital noncontrast CT Scan of the head was submitted for 2nd opinion/interpretation. Multiple axial images were obtained through the head from vertex to the skull base. Axial bone algorithm reconstruction images were provided. COMPARISON: CT Scan of the brain and MRI of the brain dated 05/11/2015 FINDINGS: New mass in the right tempor al lobe that measures approximately 3.4 x 4.2 cm in the axial plane with surrounding vasogenic edema and effacement of the right lateral ventricles with subsequent 6 mm right to left midline shift. Previously seen area of ence phalomalacia in the left frontal lobe has not significantly changed from prior exam. Right posterior approach CREMATOR shunt is seen within the right lateral ventricle. Multiple hyperdensities with in the brain parenchyma in the bilateral temporal lobes. Again seen are multiple defects from prior crani otomies and likely trauma. IMPRESSION: Comparison made to CT brain on 07/04. 1. New mass in the right te mporal lobe that measures approximately 3.4 x 4.2 cm in the axial plane with surrounding vasogenic edema and effacement of the right lateral ventricles with subsequent 6 mm r ight to left midline shift. This should be further evaluated with MRI of the brain with and without contrast. 2. Previously seen area of encephalomalacia in the left frontal lobe has not significantly changed from prior exam. 3. Right posterior approach CREMATOR shunt is seen within the right lateral ventricle. 4. Again seen are multiple defects from prior craniotomies and likely trauma. These findings are in agreem ent with previous preliminary report made by control systems drafting officer chief radiology. Brain-Outside Consult EXAM: CT BRAIN WITHOUT CONTRAST 07/05/2015 [facility] CT DATE: 07/05/2015 Center INDICATION: 2nd opinion [...] series DX EXAM: FOOT 3 VIEWS 05/25/2015 [facility] DATE: Order Observation End Time: May 25, [...] DX EXAM: XR ABDOMEN 2 views 05/25/2015 [facility] DATE: 05/23/2015 at 16: 57. INDICATION: G-tube confirmation. ADDITIONAL INFORMATION: None. COMPARISON: 05/13/2015. TECHNIQUE: Supine films of the upper abdomen before and after injection of contrast via G-tube FINDINGS: [employer] film shows a shunt tub e is [...] EXAM: XR RIGHT ELBOW 3 VIEWS 05/24/[address] [facility] Medical EXAM: XR RIGHT FOREARM 2 VIEWS C [...] EXAM: XR RIGHT ELBOW 3 VIEWS 05/24/2015 [facility] EXAM: XR RIGHT FOREARM 2 VIEWS C [...] EXAM: XR RIGHT ELBOW 3 VIEWS 05/24/2015 [facility] EXAM: XR RIGHT FOREARM 2 VIEWS C [...] ABDOMEN AND PELVIS WITHOUT CONTRAS T 05/23/2015 [facility] CT Center DATE: 05/23/2015 at 2109 INDICATION: [...] spine with and w ithout contrast. 05/16/2015 [facility] MRI Center DATE: 05/16/2015. INDICATION: Meningiomatosis. DISCUSSION: Multiplanar [...] BILATERAL LOWER EXTREMITY VENOUS DOPPL ER 05/15/2015 [facility] Doppler Bilat US Center DATE: 05/15/2015. INDICATION: [...] EXAM: FLUOROSCOPY MODIFIED BARIUM SWALLOW 0 05/14/2015 [facility] video DX Center DATE: 05/14/2015 at 1117 [...] penetration and silent aspiration observed during swallow. [place] barium with spoon: Th e oral and [...] DX EXAM: XR ABDOMEN 1 VIEW 05/13/2015 [facility] DATE: 05/13/2014 at 1425 hours. INDICATION: Tube placement/removal/reposition. ADDITIONAL INFORMATION: None. COMPARISON: 05/12/2014 at 1928 hours. TECHNIQUE: Limited radiogra phy of the abdomen performed. One frontal radiograph provided for interpretation. FINDINGS: Transesophageal feeding tube with guidewire has its tip in the pyloroduodenal junction. CREMATOR shunt is unchanged. No other significant changes. IMPRESSION: 1. Tube positions as above. Interpreted by Brian Jordan MD. Abdomen AP DX Exam: Abdomen x-ray. 05/12/2015 [facility] [place] [facility] Center DATE: 05/12/2015. INDICATIONS: Tube placement. FINDINGS: IMPRESSION: A Dobbhoff tube is seen with tip overlying the second portion of the duodenum. Brain w/wo contrast EXAMINATION: MRI brain with and without contrast. 05/11/2015 [facility] DATE: 05/11/2015. INDICATION: Meningiomatosis. Weakness. DISCUSSION: Multiplanar [...] CT EXAMINATION: CT head without contrast. 12/2015 [facility] DATE: 05/11/2015. INDICATION: Weakness. DISCUSSION: Noncontrast [...] HIP 2 VIEWS AND AP PELVIS 2015 [facility] DATE: May 10, 2015 01:25:00 PM [...] of the pubic symphysis or sacroiliac joints. CREMATOR shunt tubing overlies the pelvis. IMPRESSION: No bony abnormality identified. Hip 2 views DX EXAM: BILATERAL HIP 2 VIEWS AND AP PELVIS 2015 [facility] DATE: May 10, 2015 01:25:00 PM [...] of the pubic symphysis or sacroiliac joints. CREMATOR shunt tubing overlies the pelvis. IMPRESSION: No bony abnormality identified. Consultation Notes No Data Provided for This Section Discharge Summaries No Data Provided for This Section History and Physicals No Data Provided for This Section Vital Signs Vital Sign Value Date Comments Source Respitory Rate 21 04/07/2020 [facility] Systolic (mm Hg) 101 04/07/2020 [facility] [place] [facility] Diastolic (mm Hg) 59 04/07/2020 [facility] Respitory Rate 24 04/07/2020 [facility] Systolic (mm Hg) 103 04/07/2020 [facility] [place] [facility] [place] Diastolic (mm Hg) 57 04/07/2020 [facility] Respitory Rate 13 04/07/2020 [facility] Systolic (mm Hg) 107 04/07/2020 [facility] [place] [facility] [place] Diastolic (mm Hg) 55 04/07/2020 [facility] Heart Rate 77 04/06/2020 [facility] Height 170.18 cm 04/04/2020 [facility] Weight 79.545 04/04/2020 [facility] [place] BMI Calculated 27.47 04/04/2020 [facility] Respitory Rate 17 12/09/2019 [facility] Systolic (mm Hg) 96 12/09/2019 [facility] [place] [facility] Diastolic (mm Hg) 59 12/09/2019 [facility] Respitory Rate 17 12/09/2019 [facility] Systolic (mm Hg) 97 12/09/2019 [facility] [place] [facility] Diastolic (mm Hg) 56 12/09/2019 [facility] Respitory Rate 21 12/09/2019 [facility] Systolic (mm Hg) 127 12/09/2019 [facility] [place] [facility] Diastolic (mm Hg) 70 12/09/2019 [facility] Temperature Oral (F) 97.8 F 12/06/2019 [facility] Temperature Oral (F) 98 F 12/06/2019 [facility] Height 167.64 cm 12/06/2019 [facility] [place] BMI Calculated 22.64 12/06/2019 [facility] Center Weight 63.636 12/06/2019 [facility] Heart Rate 73 12/06/2019 [facility] Systolic (mm Hg) 100 07/06/2015 [facility] [place] [facility] Diastolic (mm Hg) 59 07/06/2015 [facility] Center Respitory Rate 18 07/06/2015 [facility] Center Respitory Rate 18 07/06/2015 [facility] Systolic (mm Hg) 104 07/06/2015 [facility] [place] [facility] Diastolic (mm Hg) 70 07/06/2015 [facility] Center Temperature Oral (F) 97.4 F 07/05/2015 [facility] Systolic (mm Hg) 105 07/05/2015 [facility] [place] [facility] Diastolic (mm Hg) 60 07/05/2015 [facility] Temperature Oral (F) 97.8 F 07/05/2015 [facility] Respitory Rate 18 07/05/2015 [facility] Center Heart Rate 84 07/05/2015 [facility] Heart Rate 73 05/28/2015 [facility] Temperature Oral (F) 99.5 F 05/28/2015 [facility] Systolic (mm Hg) 93 05/28/2015 [facility] Diastolic (mm Hg) 55 05/28/2015 [facility] Respitory Rate 18 05/28/2015 [facility] Heart Rate 52 05/28/2015 [facility] [place] Systolic (mm Hg) 101 05/28/2015 [facility] Diastolic (mm Hg) 54 05/28/2015 [facility] Respitory Rate 17 05/28/2015 [facility] Temperature Oral (F) 97.4 F 05/28/2015 [facility] Respitory Rate 18 05/28/2015 [facility] Heart Rate 54 05/28/2015 [facility] Systolic (mm Hg) 98 05/28/2015 [facility] Diastolic (mm Hg) 59 05/28/2015 [facility] Temperature Oral (F) 97.9 F 05/28/2015 [facility] Weight 76.818 05/10/2015 [facility] Height 165.1 cm 05/09/2015 [facility] Weight 81.818 05/09/2015 [facility] BMI Calculated 30.02 05/09/2015 [facility] Encounters Location Location Encounter Encounter Reason Attending ADM AK Stat us Source Details Type Number For Provider Date Date Visit [facility] Inpatient [id number] Anmol 05/09 05/28 [facility] Matty Clemons /2015 [facility] [id number] Vilma 07/04 07/[address] [facility] Matty Emergency Melton /2015 [facility] Outpatient [id number] David 07/25 07/26 [facility] Matty Serra /[facility] Inpatient [id number] Ciarra 12/05 12/09 [facility] Matty Larose /2019 [facility] Outpatient [id number] David 01/17 01/18 [facility] Radiation Serra [facility]2019 [facility] [id number] Titus 04/06 04/07 [facility] Matty Dumont /2019 [facility] Procedures Procedure Code Date Perfomer Comments Source Craniotomy [id number] 05/04/1999 [facility] Biopsy of breast [id number] [facility] Creation of CREMATOR [id number] [facility] shunt [facility] Excision of ovary [id number] [facility] Stereotactic [id number] [facility] focused gamma Medical radiosurgery of Center cerebrum Assessment and Plan Assessment and Plan Date Source Extracted from:Title: neuro-oncology 12/10/2019 [facility] Author: Jc Kirkland MD Date: 12/09/19 I reviewed the patient's MRI, demonstrat ing progression ofnearly all of her existing meningiomas from 2016. However, I am unsure whether the meningioma progression is directly related to her halluc inations. Her family describes subacute onset over at least 2 to 4 weeks ofdecreasedorientation/memory, not recognizingher brother's voiceintermittently, as well as specifichallucination of believi ng someonewas in the house chasing her. I do not believe that these represent seizure episodes. She does not have a subacute infection, which might be a cause. She is on multiple psychotropic medications, however has been on stable on themformany months, includingclonazepam, Lamictal,Keppra. The patient is now on dexamethasone 8 mg every 8 hours, which she is not on at baseline. Flow she has increasing flair signal around her progressive meningiomas, I do not believe thatthey are directly c ontributing to herintermittent hallucina tions. I recommenddecreasing the dexamethasone to at least 4 mg twice daily, and again potentially tapering them to off. The patient is on low-dose olanzapine 5 m g twice daily which may be helpful for h allucinations. I would maintain this medication for her on her discharge. I discussed in detail with her brotherou viv uncertainty of what is causing her hallucinations, although I do not believe it isseizure activity. It is possible that her increasing meningiomas is causing in creasing short-term memory difficultywhi ch is indirectly contributingto her confusion, similar toa later stage Alzheimer dementia. She might have progressive hearing loss leading to misinterpretation of hearing, but her problem is intermittent throughout the day . 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 Winston is a 44-year-old femal e withhistory of panhypopituitarism, intracranial meningiomatosus, secondary seizure disorder, blindness,auditory difficulty,presenting with worsening encephalopa thyand paranoia, found to have anotherbr ain mass. Collateral history obtained from sister at bedsidegiven patient'sencephalopathy. She states that patient's mental status is been worsening ove r the past 2 months or so. She has been more altered,generally confused. Things came to a head3 nights prior to admission, when patient attempted toelope from the housethrough a window, believing thatso mebody is coming after her. Patient was found to havea new mass in the right temporal lobewith 6 mmright to left midline shift. Neurosurgery evaluated the patientand ordered MRIs. Patient was also start ed on dexamethasone. MRI has been difficult to obtain, plan for MRI with GA. 1.Brain mass(G93.89) -pending final nsgy recs, -remain NPO after MN for possible MRI under [place]. 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) -d/c hydrocortisone, c/w Dexamethasone -c/w levothyroxine -appreciate endocrinology recommendations 5.Blindness(H54.7) -Chronic, stable 6.Hard of hearing(H91.90) -Chronic, stable 7.Mood disorder(F39) -continue home sertraline Prophylaxis SCDs Disposition Pending neurosurgery recommendations post MRI with GA Extracted from:Title: Hospitalist History and Physical Author: Brittney Chiu MD Date: 12/06/19 44-year-old female withhistory of panhyp opituitarism, meningiomatosiswith secondary seizure disorder, blindness,auditory difficulty,presenting with worsening encephalopathyand paranoia, found to have anotherbrain mass. 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 Chronic, stable. 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) -continuehydrocortisone -continue home levothyroxine -consider endocrine consult given starte d on glucocorticoids now too in setting of brain mass 5.Blindness(H54.7) Chronic, stable 6.Hard of hearing(H91.90) Chronic, stable 7.Mood disorder(F39) -continue home sertraline SCDs Pending neurosurgery recommendations Plan of Care No Data Provided for This Section Social History Social History Date Source Social History TypeResponse 05/09/2015 [facility] Alcohol Never Smoking Status Never smoker; Ready to change: No; Candice rns about tobacco use in household: No; Exposure to Tobacco Smoke None; Cigarette Smoking Last 365 Days No; Reg Smoking Cessation Counseling No entered on: 04/04/20 Family History No Data Provided for This Section Advance Directives No Data Provided for This Section Functional Status No Data Provided for This Section
--- OUTSIDE RECORDS SUMMARY | 2020-04-09 18:47 | XMS REPORT | Summary of Care ---
:1975 Author Organization [facility] Address [address], [place] [address]- Encounter HQ Encntr_alias(FIN) [id number] Date(s): 01/18/20 - 01/18/20 [facility] [address] [place] [address]- [phone] Discharge Disposition: Home or Self Care Attending Physician: David Serra MD Vital Signs No data available for this section Problem List Condition Effective Dates Status Health Status Informant Acid reflux(Confirmed) Resolved Blind(Confirmed) Resolved Blindness(Confirmed) Active Brain tumor(Confirmed) Resolved Breast cyst(Confirmed) Resolved Epilepsy(Confirmed) Resolved Hearing impaired(Confirmed) Resolved Hard of hearing(Confirmed) Active Hypothyroid(Confirmed) Resolved Mood disorder(Confirmed) Active Meningiomatosis(Confirmed) Active Ovarian cyst(Confirmed) Resolved Panhypopituitarism(Confirmed) Active Secondary seizure Active disorder(Confirmed) Seizure(Confirmed) Resolved Allergies, Adverse Reactions, Alerts Substance Reaction Severity Status seafood Active penicillins Active iodine topical Active Medications No Known Medications Results No data available for this section Immunizations Given and Recorded Vaccine Date Status Refusal Reason pneumococcal 23-valent vaccine 05/11/15 Given Procedures Procedure Date Related Diagnosis Body Site Status Craniotomy 05/04/99 Completed Biopsy of breast Completed Creation of CARE TAKER shunt Complet ed Excision of ovary Completed Stereotactic focused gamma radiosurgery Completed of cerebrum Social History Social History Type Response Alcohol Never Smoking Status Never smoker; Ready to hunt e: No; Concerns about tobacco use in household: No; Exposure to Tobacco Smoke None; Cigarette Smoking Last 365 Days No; Reg Smoking Cessation Counseling No entered on: 01/18/20 Assessment and Plan No data available for this section
--- OUTSIDE RECORDS SUMMARY | 2020-04-09 18:47 | XMS REPORT | Summary of Care ---
:1975 Author Organization [facility] Address [address], [place] [address]- Encounter HQ Oumarr_stanley(FIN) [id number] Date(s): 04/06/20 - 04/06/[address] [address]- [place] Discharge Disposition: Home or Self Care Attending Physician: Titus Juan MD Referring Physician: Titus Juan MD Vital Signs Most recent to oldest 1 2 3 [Reference Range]: Height 170.18 cm (04/04/20 11:14 AM) Blood Pressure [90-140/60-90 101/59 mmHg 103/57 mmHg 107 /55 mmHg mmHg] (04/06/20 6:30 PM) (04/06/20 6:15 PM) (04/06/20 6:0 0 PM) Respiratory Rate [14-20 BRMIN] 21 BRMIN 24 BRMIN 1 3 BRMIN *HI* *HI* *LOW* (04/06/20 6:30 PM) (04/06/20 6:15 PM) (04/06/20 6:0 0 PM) Peripheral Pulse Rate [60-100 77 bpm bpm] (04/06/20 8:20 AM) Weight 79.545 kg (04/04/20 11:14 AM) Body Mass Index 27.47 m2 (04/04/20 11:14 AM) Problem List Condition Effective Dates Status Health [...] Active penicillins Active iodine topical Active Medications acetaminophen 325 mg, Route: PO, Drug form: TAB, Q4H, Dosing Weight 79.545, kg, PRN Pain Score 1-3, Start date: 04/06/20 15:43:00 FINGERNAIL TECHNICIAN, Duration: 30 day, Stop date: 05/06/20 15:42:00 FINGERNAIL TECHNICIAN Start Date: 04/06/20 Stop Date: 04/07/20 Status: Discontinuedacetaminophen-hydrocodone 325 mg-5 mg oral tablet 1 tab, Route: PO, Drug Form: TAB, Dosing Weight 79.545, kg, Q4H, PRN Pain Score 4-6, Start date: 04/06/20 15:43:00 FINGERNAIL TECHNICIAN, Duration: 30 day, Stop date: 05/06/20 15:42:00 FINGERNAIL TECHNICIAN Start Date: 04/06/20 Stop Date: 04/07/20 Status: Discontinuedacetaminophen-hydrocodone 325 mg-5 mg oral tablet 2 tab, Route: PO, Drug Form: TAB, Dosing Weight 79.545, kg, Q4H, PRN Pain Score 7-10, Start date: 04/06/20 15:43:00 FINGERNAIL TECHNICIAN, Duration: 30 day, Stop date: 05/06/20 15:42:00 FINGERNAIL TECHNICIAN Start Date: 04/06/20 Stop Date: 04/07/20 Status: DiscontinuedANES flumazenil 0.2 mg, Route: IVP, PRN, Dosing Weight 79.545, kg, PRN Benzodiazepine Reversal, Initial dose, Start date: 04/06/20 18:38:00 FINGERNAIL TECHNICIAN, Duration: 30 day, Stop date: 05/06/20 18:37:00 FINGERNAIL TECHNICIAN Start Date: 04/06/20 Stop Date: 04/07/20 Status: DiscontinuedANES naloxone 0.4 mg, Route: IVP, Q2MIN, Dosing Weight 79.545, kg, PRN Narcotic Reversal, Start date: 04/06/20 18:38:00 FINGERNAIL TECHNICIAN, Duration: 8 doses or times, Stop date: Limited # of times Start Date: 04/06/20 Stop Date: 04/07/20 Status: DiscontinuedANES ondansetron 4 mg, Route: IVP, ONCE, Dosing Weight 79.545, kg, PRN Nausea & Vomiting, Start date: 04/06/20 18:38:00 FINGERNAIL TECHNICIAN Start Date: 04/06/20 Stop Date: 04/07/20 Status: Discontinuedbupivacaine 0.25%-epinephrine 1:200,000 injectable solution 30 mL, Route: MISC, Dosing Weight 79.545, kg, ONCALL, Start date: 04/06/20 6:00:00 FINGERNAIL TECHNICIAN, Duration: 30day, Stop date: 05/06/20 5:59:00 FINGERNAIL TECHNICIAN Start Date: 04/06/20 Stop Date: 04/07/20 Status: Discontinueddexamethasone 6 mg, Route: IVP, Drug form: INJ, ONCE, Dosing Weight 79.545, kg, Start date: 04/06/20 5:49:00 FINGERNAIL TECHNICIAN, Stop date: 04/06/20 5:49:00 FINGERNAIL TECHNICIAN Start Date: 04/06/20 Stop Date: 04/06/20 Status: Orderedfamotidine 20 mg, 2 mL, Route: IVP, Drug form: INJ, ONCE, Dosing Weight 79.545, kg, Start date: 04/06/20 5:49:00 FINGERNAIL TECHNICIAN, Stop date: 04/06/20 5:49:00 FINGERNAIL TECHNICIAN, 0 Notes: (Same as: Pepcid)Can be dilute in 5-10cc NS IVP: Slow IV push over at least 2 minutes. Start Date: 04/06/20 Stop Date: 04/06/20 Status: OrderedfentaNYL 50 microgram, Route: IVP, ONCALL, Dosing Weight 79.545, kg, Priority: Routine, Start date: 04/06/20 6:00:00 FINGERNAIL TECHNICIAN, Duration: 1 doses or times Start Date: 04/06/20 Stop Date: 04/07/20 Status: DiscontinuedfentaNYL 25 microgram, Route: IVP, Q1H, Dosing Weight 79.545, kg, PRN Pain Score 7-10, Priority: Routine, Start date: 04/06/20 5:49:00 FINGERNAIL TECHNICIAN, Duration: 1 doses or times, Stop date: Limited # of times Start Date: 04/06/20 Stop Date: 04/07/20 Status: DiscontinuedhydrALAZINE 20 mg, Route: IV, Q4H, Dosing Weight 79.545, kg, PRN Hypertension, Start date: 04/06/20 5:49:00 FINGERNAIL TECHNICIAN,Duration: 30 day, Stop date: 05/06/20 5:48:00 FINGERNAIL TECHNICIAN Start Date: 04/06/20 Stop Date: 04/07/20 Status: Discontinuedlabetalol 10 mg, Route: IVP, Drug form: INJ, [id number], Dosing Weight 79.545, kg, PRN Hypertension, Start date: 04/06/20 5:49:00 FINGERNAIL TECHNICIAN, Duration: 3 doses or times, Stop date: Limited # of times Start Date: 04/06/20 Stop Date: 04/07/20 Status: Discontinuedondansetron 4 mg, 2 mL, Route: IVP, Drug form: INJ, Q6H, Dosing Weight 79.545, kg, PRN Nausea & Vomiting, Start date: 04/06/20 5:49:00 FINGERNAIL TECHNICIAN, Duration: 30 day, Stop date: 05/06/20 5:48:00 FINGERNAIL TECHNICIAN, 0 Notes: (Same as: Zofran) MEDICATION WASTE Product Size: 4 mgProduct Wasted: ___ mg Start Date: 04/06/20 Stop Date: 04/07/20 Status: DiscontinuedPolysporin topical ointment 1 appl, Route: TOP, ONCALL, Drug form: OINT, Priority: Routine, Start date: 04/06/20 6:00:00 FINGERNAIL TECHNICIAN, Duration: 1 doses or times Start Date: 04/06/20 Stop Date: 04/07/20 Status: Discontinuedpromethazine 25 mg, Route: IVPB, Q6H, Dosing Weight 79.545, kg, PRN Nausea & Vomiting, Start date: 04/06/20 5:49:00 FINGERNAIL TECHNICIAN, Duration: 30 day, Stop date: 05/06/20 5:48:00 FINGERNAIL TECHNICIAN Start Date: 04/06/20 Stop Date: 04/07/20 Status: DiscontinuedSodium Chloride 0.9% IV 1,000 mL 1,000 mL, Rate: 50 ml/hr, Infuse over: 20 hr, Route: IV, Dosing Weight 79.545 kg, Total Volume: 1,000, Priority: Routine, Start date: 04/06/20 5:49:00 FINGERNAIL TECHNICIAN, Duration: 30 day, Stop date: 05/06/20 5:48:00CST, 1.96, m2, 0 Start Date: 04/06/20 Stop Date: 04/07/20 Status: DiscontinuedSodium Chloride 0.9% IV 1,000 mL 1,000 mL, Rate: 50 ml/hr, Infuse over: 20 hr, Route: IV, Dosing Weight 79.545 kg, Total Volume: 1,000, Priority: Routine, Start date: 04/06/20 15:43:00 FINGERNAIL TECHNICIAN, Duration: 30 day, Stop date: 05/06/20 15:42:00 FINGERNAIL TECHNICIAN, 1.96, m2 Start Date: 04/06/20 Stop Date: 04/07/20 Status: Discontinued Results Most recent to oldest [Reference Range]: 1 eGFR 78 mL/min/1.73m2 1 *NA* (04/06/20 7:46 AM) hCG Tot <1 mIU/mL *NA* (04/06/20 7:46 AM) Creatinine Lvl [0.50-1.40 mg/dL] 0.89 mg/dL (04/06/20 7:46 AM) Coronavirus (COVID-19) BONNIE [Not Detected] Not Detected (04/06/20 6:31 AM) 1Result Comment: The eGFR is calculated using the CKD-EPI formula. In most young, healthy individualsthe eGFR will be >90 mL/min/1.73m2. The eGFR declines with age. An eGFR of 60-89 may be normal insome populations, particularly the elderly, for whom the [...] should be multiplied by the estimated BMI. Immunizations Given and Recorded Vaccine Date Status Refusal Reason pneumococcal 23-valent vaccine 05/11/15 Given Procedures Procedure Date Related Diagnosis Body Site Status Craniotomy 05/04/99 Completed Biopsy of breast Completed Creation of RECEIPT AND REPORT CLERK shunt Complet ed Excision of ovary Completed Stereotactic focused gamma radiosurgery Completed of cerebrum Social History Social History Type Response Alcohol Never Smoking Status Never smoker; Ready to hunt e: No; Concerns about tobacco use in household: No; Exposure to Tobacco Smoke None; Cigarette Smoking Last 365 Days No; Reg Smoking Cessation Counseling No entered on: 04/04/20 Assessment and Plan No data available for this section
--- OUTSIDE RECORDS SUMMARY | 2020-04-09 18:47 | XMS REPORT | Summary of Care ---
:1975 Author Organization [facility] Address [address] [place], [place] [address]- Encounter HQ [email or web address]_stanley(FIN) [phone] Date(s): 04/06/20 - 04/06/[address] [address]- [place] Discharge Disposition: Home or Self Care [...] Pain Score 1-3, Start date: 04/06/20 15:43:00 [employer], Duration: 30 day, Stop date: 05/06/20 15:42:00 [employer]IST Start Date: 04/06/20 Stop Date: 04/07/20 Status: Discontinuedacetaminophen-hydrocodone 325 mg-5 mg oral tablet 1 tab, Route: PO, Drug Form: TAB, Dosing Weight 79.545, kg, Q4H, PRN Pain Score 4-6, Start date: 04/06/20 15:43:00 [employer], Duration: 30 day, Stop date: 05/06/20 15:42:00 [employer]IPLE [employer] HYGI[employer]IST Start Date: 04/06/20 Stop Date: 04/07/20 Status: Discontinuedacetaminophen-hydrocodone 325 mg-5 mg oral tablet 2 tab, Route: PO, Drug Form: TAB, Dosing Weight 79.545, kg, Q4H, PRN Pain Score 7-10, Start date: 04/06/20 15:43:00 [employer]IST, Duration: 30 day, Stop date: 05/06/20 15:42:00 [employer]IPLE [employer] HYGI[employer]IST Start Date: 04/06/20 Stop Date: 04/07/20 Status: DiscontinuedANES flumazenil 0.2 mg, Route: IVP, PRN, Dosing Weight 79.545, kg, PRN Benzodiazepine Reversal, Initial dose, Start date: 04/06/20 18:38:00 [employer], Duration: 30 day, Stop date: 05/06/20 18:37:00 [employer]IPLE [employer] HYGI[employer]IST Start Date: 04/06/20 Stop Date: 04/07/20 Status: DiscontinuedANES naloxone 0.4 mg, Route: IVP, Q2MIN, Dosing Weight 79.545, kg, PRN Narcotic Reversal, Start date: 04/06/20 18:38:00 [employer]IST, Duration: 8 doses or times, Stop date: Limited # of times Start Date: 04/06/20 Stop Date: 04/07/20 Status: DiscontinuedANES ondansetron 4 mg, Route: IVP, ONCE, Dosing Weight 79.545, kg, PRN Nausea & Vomiting, Start date: 04/06/20 18:38:00 [employer]IST Start Date: 04/06/20 Stop Date: 04/07/20 Status: Discontinuedbupivacaine 0.25%-epinephrine 1:200,000 injectable solution 30 mL, Route: MISC, Dosing Weight 79.545, kg, ONCALL, Start date: 04/06/20 6:00:00 [employer] HY[employer]IST, Duration: 30day, Stop date: 05/06/20 5:59:00 [employer]IPLE [employer]AL HYGIENIST Start Date: 04/06/20 Stop Date: 04/07/20 Status: Discontinueddexamethasone 6 mg, Route: IVP, Drug form: INJ, ONCE, Dosing Weight 79.545, kg, Start date: 04/06/20 5:49:00 [employer]IPLE [employer]IST, Stop date: 04/06/20 5:49:00 [employer]IPLE [employer] HYGI[employer]IST Start Date: 04/06/20 Stop Date: 04/06/20 Status: Orderedfamotidine 20 mg, 2 mL, Route: IVP, Drug form: INJ, ONCE, Dosing Weight 79.545, kg, Start date: 04/06/20 5:49:00 [employer]IPLE [employer] HYGI[employer]IST, Stop date: 04/06/20 5:49:00 [employer]IPLE [employer]AL HYGIENIST, 0 Notes: (Same as: Pepcid)Can be dilute in 5-10cc NS IVP: Slow IV push over at least 2 minutes. Start Date: 04/06/20 Stop Date: 04/06/20 Status: OrderedfentaNYL 50 microgram, Route: IVP, ONCALL, Dosing Weight 79.545, kg, Priority: Routine, Start date: 04/06/20 6:00:00 [employer]IPLE [employer] HY[employer]IST, Duration: 1 doses or times Start Date: 04/06/20 Stop Date: 04/07/20 Status: DiscontinuedfentaNYL 25 microgram, Route: IVP, Q1H, Dosing Weight 79.545, kg, PRN Pain Score 7-10, Priority: Routine, Start date: 04/06/20 5:49:00 [employer]IST, Duration: 1 doses or times, Stop date: Limited # of times Start Date: 04/06/20 Stop Date: 04/07/20 Status: DiscontinuedhydrALAZINE 20 mg, Route: IV, Q4H, Dosing Weight 79.545, kg, PRN Hypertension, Start date: 04/06/20 5:49:00 [employer]IPLE [employer] HYGIENIST,Duration: 30 day, Stop date: 05/06/20 5:48:00 [employer]IPLE [employer]RI[employer] HYGIENIST Start Date: 04/06/20 Stop Date: 04/07/20 Status: Discontinuedlabetalol 10 mg, Route: IVP, Drug form: INJ, [id number], Dosing Weight 79.545, kg, PRN Hypertension, Start date: 04/06/20 5:49:00 [employer]IPLE [employer] HYGI[employer]IST, Duration: 3 doses or times, Stop date: Limited # of times Start Date: 04/06/20 Stop Date: 04/07/20 Status: Discontinuedondansetron 4 mg, 2 mL, Route: IVP, Drug form: INJ, Q6H, Dosing Weight 79.545, kg, PRN Nausea & Vomiting, Start date: 04/06/20 5:49:00 [employer]IPLE [employer] HYGI[employer]IST, Duration: 30 day, Stop date: 05/06/20 5:48:00 [employer]IPLE [employer]RIAL HYGIENIST, 0 Notes: (Same as: Zofran) MEDICATION WASTE Product Size: 4 mgProduct Wasted: ___ mg Start Date: 04/06/20 Stop Date: 04/07/20 Status: DiscontinuedPolysporin topical ointment 1 appl, Route: TOP, ONCALL, Drug form: OINT, Priority: Routine, Start date: 04/06/20 6:00:00 [employer]IPLE [employer] HYGI[employer]IST, Duration: 1 doses or times Start Date: 04/06/20 Stop Date: 04/07/20 Status: Discontinuedpromethazine 25 mg, Route: IVPB, Q6H, Dosing Weight 79.545, kg, PRN Nausea & Vomiting, Start date: 04/06/20 5:49:00 [employer]IPLE [employer] HYGI[employer]IST, Duration: 30 day, Stop date: 05/06/20 5:48:00 [employer]IPLE [employer] HYGIENIST Start Date: 04/06/20 Stop Date: 04/07/20 Status: DiscontinuedSodium Chloride 0.9% IV 1,000 mL 1,000 mL, Rate: 50 ml/hr, Infuse over: 20 hr, Route: IV, Dosing Weight 79.545 kg, Total Volume: 1,000, Priority: Routine, Start date: 04/06/20 5:49:00 [employer]IPLE [employer] HYGI[employer]IST, Duration: 30 day, Stop date: 05/06/20 5:48:00CST, 1.96, m2, 0 Start Date: 04/06/20 Stop Date: 04/07/20 Status: DiscontinuedSodium Chloride 0.9% IV 1,000 mL 1,000 mL, Rate: 50 ml/hr, Infuse over: 20 hr, Route: IV, Dosing Weight 79.545 kg, Total Volume: 1,000, Priority: Routine, Start date: 04/06/20 15:43:00 [employer]IPLE [employer] HYGI[employer]IST, Duration: 30 day, Stop date: 05/06/20 15:42:00 PRINCIPLE [employer]RIAL HYGIENIST, 1.96, m2 Start Date: 04/06/20 Stop Date: [...] Completed Biopsy of breast Completed Creation of CLAIM CLERK shunt Complet ed Excision of ovary [...]
--- OUTSIDE RECORDS SUMMARY | 2020-04-09 18:50 | XMS REPORT | Summary of Care ---
:1975 Author Name MIKE Sorto Address Unavailable Unavailable , Care Team Providers Name Role Phone SYLVIE Sorto Unavailable Unavailable MIKE Sorto Unavailable Unavailable PIERRE OTERO Unavailable Unavailable RAJ OTERO [place] Unavailable Unavailable Mike OTERO Unavailable Unavailable AGUSTIN AUD Unavailable Unavailable SYLVIE OTERO [place] Unavailable Unavailable REMICK AUD [place] Unavailable Unavailable PIERRE OTERO, RICK Quan Unavailable Unavailable Unavailable Unavailable Unavailable Functional Status [...] TABLET BY MOUTH DAILY Quantity: 30 Refills: 0 BLAINE MERCER M.D. Start : 22-Jul-2006 Active [...] 21-Jun-2018 Active Vitamin D (Ergocalciferol) 1.25 MG (91646 UT) Oral Capsule TAKE 1 CAPSULE BY MOUTH WEEKLY Quantity: 12 Refills: 0 EILEEN PAIZ M.D. Start : 20-May-2019 Active [...] Dates Details Influenza on: 01-Mar-2013 Lot #: [id number] Family History Name Dates Details Family history [...] EILEEN PAIZ M.D. On: 08-May-2020 14 :20 Interventions Provided Medication ChangesVitamin D (Ergocalciferol) 1.25 MG (89204 UT) Oral Capsule - Renew Instructions Name Dates Details Instructions [...] 14:00 Encounter Diagnosis: Problem not documented Appointment; ALBINO NG On: 02-Dec-2019 15:30 Encounter Diagnosis: Problem not documented
--- OUTSIDE RECORDS SUMMARY | 2020-04-09 18:50 | XMS REPORT | Summary of Care ---
:1975 Author Name SYLVIE Sorto Address Unavailable Unavailable , Care Team [...] 21-Jun-2018 Active Vitamin D (Ergocalciferol) 1.25 MG (32053 UT) Oral Capsule TAKE 1 CAPSULE BY [...] Dates Details Influenza on: 01-Mar-2013 Lot #: [id number] Family History Name Dates Details Family history [...]
--- OUTSIDE RECORDS SUMMARY | 2020-04-09 18:50 | XMS REPORT | Summary of Care ---
[...] 21-Jun-2018 Active Vitamin D (Ergocalciferol) 1.25 MG (67740 UT) Oral Capsule TAKE 1 CAPSULE BY [...] Dates Details Influenza on: 01-Mar-2013 Lot #: [id number] Family History Name Dates Details Family history [...] On: 08-May-2020 14 :20 Interventions Provided Medication ChangesSertraline HCl - 100 [...]
--- OUTSIDE RECORDS SUMMARY | 2020-04-09 18:50 | XMS REPORT | Summary of Care ---
[...] 21-Jun-2018 Active Vitamin D (Ergocalciferol) 1.25 MG (36873 UT) Oral Capsule TAKE 1 CAPSULE BY [...] Dates Details Influenza on: 01-Mar-2013 Lot #: [id number] Family History Name Dates Details Family history [...]
--- OUTSIDE RECORDS SUMMARY | 2020-04-09 18:50 | XMS REPORT | Summary of Care ---
:1975 Author Name Jony HERZOG Address Unavailable Unavailable , Care Team Providers Name Role Phone SYLVIE Sorto Unavailable Unavailable MIKE Sorto Unavailable Unavailable PIERRE OTERO Unavailable Unavailable RAJ OTERO [place] Unavailable Unavailable Mike OTERO Unavailable Unavailable AGUSTIN AUD Unavailable Unavailable SYLVIE OTERO [place] Unavailable Unavailable JESENIA AUD [place] Unavailable Unavailable PIERRE OTERO, RICK [...] 21-Jun-2018 Active Vitamin D (Ergocalciferol) 1.25 MG (47259 UT) Oral Capsule TAKE 1 CAPSULE BY [...] Dates Details Influenza on: 01-Mar-2013 Lot #: [id number] Family History Name Dates Details Family history [...]
--- OUTSIDE RECORDS SUMMARY | 2020-04-09 18:50 | XMS REPORT | Continuity of Care Document ---
:1975 Author Organization [facility] Address [address] [place] [address] Care Team Providers Name Role Phone Julia Ruiz Attending Clinician Meño Serra Attending Clinician Roly Attending Clinician BERENICE Attending Clinician Unavailable RAJ Attending Clinician Unavailable VAMSI Attending Clinician Unavailable SYLVIE Attending Clinician Unavailable IZABEL Attending Clinician Unavailable Sherita THOMAS Attending Clinician SINAI Attending Clinician Unavailable ALFA Attending Clinician Unavailable JESENIA Attending Clinician Unavailable Naye Melton Attending Clinician Courtney Martinez Attending Clinician Doctor Unassigned, Name Attending Clinician Unavailable Lurdes Larose Admitting Clinician Sam Frost Admitting Clinician Enio Clemons Admitting Clinician Problems Condition Condition Condition Status Onset Resolution Last Treating Co mments Source Name Details Category Date Date Treatment Clinician Date MENINGIOMA Diagnosis Active 2019-052020-04-07 Memoria D32.0 11:23:00 l 00:00: [place] MENINGIOMA 00 D32.0 Active 02/28/[address] [facility] D32.0 Diagnosis Active 2020-01-19 Mem oria 01-10 13:08:00 l D32.0 00:00: Matty 00 Active 01/11/[address] [facility] WORSENING Diagnosis Active 2019-12-07 Memoria BRAIN 8- 12:22:00 l TUMOR 00:00: Matty WORSENING 00 BRAIN TUMOR Active 12/05/[address] [facility] BRAIN Diagnosis Active 2015-07-05 Mem oria SHUNT NOT 3-03 16:24:00 l DRAINING BRAIN 00:00: [place] SHUNT NOT 00 DRAINING Active 07/05/[address] [facility] MENINGIOMA Diagnosis Active 2015-07-26 Memoria CA 2-24 13:55:00 l 00:00: Matty MENINGIOMA [address] [facility] PAIN Diagnosis Active 2015-05-09 Mem oria 05-09 15:08:00 l PAIN 00:00: Matty 00 Active 05/09/[address] [facility] G40.901 Diagnosis Active 2015-05-09 Me moria 1-06 15:09:00 l G40.901 00:00: [place] 00 Active 05/09/[address] [facility] G40.219 Diagnosis Active 2015-08-22 Me moria 06 09:47:00 l G40.219 00:00: [place] 00 Active 05/09/[address] 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, seizures, intractabl intractabl e, without e, without status status epilepticu epilepticu s s Brain Brain Problem Active Univers tumor tumor ity of [place] Physici ans Sciatica Sciatica Problem Active Unive rs of left of left ity of side side [place] Physici ans Adrenal Adrenal Problem Active Univers insufficie insufficie it y of ncy ncy [place] Physici ans Vitamin D Vitamin D Problem Active Uni vers insufficie insufficie it y of ncy ncy [place] Phys[facility] ans Hypothyroi Hypothyroi Problem Active U nivers dism dism ity of [place] Phys[facility] ans Gastroesop Problem Resolve 2020-04-09 Memoria hageal d 09:29:46 l reflux [place] disease Gastroesop (disorder) hageal reflux disease (disorder) Resolved Problem 04/09/[address] [facility] Blindness Problem Resolve 2020-04-09 M emoria - both d 09:29:46 l eyes Matty (disorder) Blindness - both eyes (disorder) Resolved Problem 04/09/[address] [facility] Blood clot Problem Resolve 2015-07-29 Memoria (morpholog d 00:31:29 l ic Blood Matty abnormalit clot y) (morpholog ic abnormalit y) Resolved Problem 07/29/[address] 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 Cyst of Problem Resolve 2020-04-09 Mem oria breast d 09:29:46 l (disorder) Cyst of Her bonilla breast (disorder) Resolved Problem 04/09/[address] [facility] Epilepsy Problem Resolve 2020-04-09 Me moria (disorder) d 09:29:46 l Epilepsy Parveen n (disorder) Resolved Problem 04/09/[address] [facility] Hearing Problem Resolve 2020-04-09 Mem oria loss d 09:29:46 l (finding) Hearing Herm naye loss (finding) Resolved Problem 04/09/[address] [facility] Hypothyroi Problem Resolve 2020-04-09 Memoria dism d 09:29:46 l (disorder) Parveen n Hypothyroi dism (disorder) Resolved Problem 04/09/[address] [facility] Cyst of Problem Resolve 2020-04-09 Mem oria ovary d 09:29:46 l (disorder) Cyst of Her bonilla ovary (disorder) Resolved Problem 04/09/[address] [facility] Seizure Problem Resolve 2020-04-09 Mem oria (finding) d 09:29:46 l Seizure Matty (finding) Resolved Problem 04/09/[address] [facility] Blindness Problem Active 2020-04-09 Me moria AND/OR 09:29:46 l vision Matty impairment Blindness level AND/OR (disorder) vision impairment level (disorder) Active Problem 04/09/[address] [facility] Mood Problem Active 2020-04-09 Memor ia disorder 09:29:46 l (disorder) Mood Parveen n disorder (disorder) Active Problem 04/09/[address] [facility] Neoplasm Problem Active 2020-04-09 Mem oria of 09:29:46 l uncertain Neoplasm Her bonilla behavior of of uncertain meninges behavior (disorder) of meninges (disorder) Active Problem 04/09/[address] [facility] Panhypopit Problem Active 2020-04-09 M emoria uitarism 09:29:46 l (disorder) Parveen n Panhypopit uitarism (disorder) Active Problem 04/09/[address] [facility] Seizure Problem Active 2020-04-09 [facility] raeann disorder 09:29:46 l (disorder) Seizure Her bonilla disorder (disorder) Active Problem 04/09/[address] [facility] EPILEPSY, Diagnosis Active 2015-05-09 Memoria UNSP, NOT 15:09:00 l INTRACTABL Parveen n E, WITH ST EPILEPSY, UNSP, NOT INTRACTABL E, WITH ST Active [facility] 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 Memoria SYMPTC EPI 09:47:00 l W CMPLX Matty PART SEIZ, 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, Active [facility] NEOPLASM Diagnosis Active 2015-08-22 M emoria OF 09:47:00 l UNSPECIFIE NEOPLASM He rmann D BEHAVIOR OF OF BRAI UNSPECIFIE D BEHAVIOR OF BRAI Active 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 CEREBRAL Diagnosis Active 2019-12-07 M emoria EDEMA 12:22:00 l CEREBRAL Parveen n EDEMA Active [facility] Discharge Problem 2015-07-08 2015-07-08 Memoria Diagnosis: 3- 06:30:00 06:30:00 l Vomiting, 06:00: Matty unspecifie Discharge 00 d Diagnosis: Vomiting, unspecifie d 07/05/2015 07/08/[address] [facility] Discharge Problem 2015-07-08 2015-07-08 Memoria Diagnosis: 3-03 06:30:00 06:30:00 l Vomiting 06:00: Matty in adult Discharge 00 Diagnosis: Vomiting in adult 6 07/08/[address] [facility] Allergies, Adverse Reactions, Alerts Allergy Allergy Status Severity Reaction(s) Onset Inactive Treating Comm ents Source Name Type Date Date Clinician Iodine Allergy Active Univers REMI to drug ity of (finding [place] ) Physici ans Penicill Allergy Active Univers ins to drug ity of (finding [place] ) Physici ans penicill penicill Active Memori a ins ins l Matty seafood seafood Active Memoria l [place] iodine iodine Active Memoria topical topical l Matty Family History Family Member Diagnosis Comments Start Date Stop Date Source Unknown Family Family history of Family History University of Member Heart Disease [place] [facility] c[facility] Mother Family history of Univers ity of diabetes mellitus [place] P hysicians Mother Family history of Univers ity of hypertension [place] Phys[facility] ians Mother Family history of Univers ity of thyroid disease [place] Phy sicians Social History Social Habit Start Date Stop Date Quantity Comments Source Social History 2015-05-09 2015-05-09 [facility] Bernard mascorro 23:46:54 23:46:54 Smoking Status Start Date Stop Date Source Never smoked tobacco (finding) [facility] Physicians Medications Ordered Filled Start Stop Current Ordering Indication Dosage Frequency Signature Comments Components Source Medication Medication Date Date Medication? Clinician (SIG) Name Name Flumazenil 2019- No 0.2 mg, [facility] raeann 2-05 Route: l 00:38: IVP, PRN, Matty Dosing Weight 79.545, kg, PRN Benzodiaze pine Reversal, Initial dose, Start date: 04/06/20 18:38:00 [employer], Duration: 30 day, Stop date: 05/06/20 18:37:00 [employer] Naloxone 2019- No 0.4 mg, Memori a 2-05 Route: l 00:38: IVP, [place] 00 Q2MIN, Dosing Weight 79.545, kg, PRN Narcotic Reversal, Start date: 04/06/20 18:38:00 [employer], Duration: 8 doses or times, Stop date: Limited # of times Ondansetron 2019- No 4 mg, Memor ia 2-05 Route: l 00:38: IVP, ONCE, [place] Dosing Weight 79.545, kg, PRN Nausea & Vomiting, Start date: 04/06/20 18:38:00 [employer] Sodium 2020- No 1,000 mL, Memori a Chloride 2-04 Rate: 50 l 0.9% IV 21:43: ml/hr, Matty 1,000 mL 00 Infuse over: 20 hr, Route: IV, Dosing Weight 79.545 kg, Total Volume: 1,000, Priority: Routine, Start date: 04/06/20 15:43:00 [employer], Duration: 30 day, Stop date: 05/06/20 15:42:00 [employer], 1.96, m2 Acetaminoph 2019- No 325 mg, Mem oria en 2-04 Route: PO, l 21:43: Drug form: Matty 00 TAB, Q4H, Dosing Weight 79.545, kg, PRN Pain Score 1-3, Start date: 04/06/20 15:43:00 [employer], Duration: 30 day, Stop date: 05/06/20 15:42:00 [employer] Acetaminoph 2019-05 No 1 tab, [facility] raeann en 325 MG / 2-04 Route: PO, l Hydrocodone 21:43: Drug Form: Matty Bitartrate 00 TAB, 5 MG Oral Dosing Tablet Weight 79.545, kg, Q4H, PRN Pain Score 4-6, Start date: 04/06/20 15:43:00 [employer]PER[employer], Duration: 30 day, Stop date: 05/06/20 15:42:00 [employer] Bupivacaine 2019-05 No 30 mL, [facility] raeann Hydrochlori 2-04 Route: l de 2.5 12:00: MISC, [place] MG/ML / 00 Dosing Epinephrine Weight 0.005 MG/ML 79.545, Injectable kg, Solution ONCALL, Start date: 04/06/20 6:00:00 [employer], Duration: 30 day, Stop date: 05/06/20 5:59:00 [employer] Bacitracin 2019-05 No 1 appl, [facility] raeann 0.5 UNT/MG 2-04 Route: l / Polymyxin 12:00: TOP, Parveen n B 10 UNT/MG 00 ONCALL, Topical Drug form: Ointment OINT, [Polysporin Priority: ] Routine, Start date: 04/06/20 6:00:00 [employer], Duration: 1 doses or times Fentanyl 2019-05 No 50 Memoria 2-04 microgram, l 12:00: Route: Matty 00 IVP, ONCALL, Dosing Weight 79.545, kg, Priority: Routine, Start date: 04/06/20 6:00:00 [employer], Duration: 1 doses or times Sodium 2019-05 No 1,000 mL, Memori a Chloride 2-04 Rate: 50 l 0.9% IV 11:49: ml/hr, [place] 1,000 mL 00 Infuse over: 20 hr, Route: IV, Dosing Weight 79.545 kg, Total Volume: 1,000, Priority: Routine, Start date: 04/06/20 5:49:00 [employer]PERVISOR, Duration: 30 day, Stop date: 05/06/20 5:48:00 [employer]PER[employer]OR, 1.96, m2, 0 Dexamethaso 2019-05 Yes 6 mg, Memor ia ne 2-04 Route: l 11:49: IVP, Drug Matty 00 form: INJ, ONCE, Dosing Weight 79.545, kg, Start date: 04/06/20 5:49:00 [employer]PERVISOR, Stop date: 04/06/20 5:49:00 [employer]OR Famotidine 2019-05 Yes Notes: Memor ia 2-04 (Same as: l 11:49: Pepcid) Can be dilute in 5-10cc NS IVP: Slow IV push over at least 2 minutes. Ondansetron 2019-05 No Notes: [facility] raeann 2-04 (Same as: l 11:49: Zofran) MEDICATION WASTE Product Size: 4 mg Product Wasted: ___ mg Promethazin 2019-05 No 25 mg, [facility] raeann e 2-04 Route: l 11:49: IVPB, Q6H, Dosing Weight 79.545, kg, PRN Nausea & Vomiting, Start date: 04/06/20 5:49:00 [employer]PER[employer]OR, Duration: 30 day, Stop date: 05/06/20 5:48:00 [employer] Fentanyl 2019-05 No 25 Memoria 2-04 microgram, l 11:49: Route: IVP, Q1H, Dosing Weight 79.545, kg, PRN Pain Score 7-10, Priority: Routine, Start date: 04/06/20 5:49:00 [employer]PER[employer]OR, Duration: 1 doses or times, Stop date: Limited # of times Hydralazine 2019-05 No 20 mg, [facility] raeann 2-04 Route: IV, l 11:49: Q4H, Dosing Weight 79.545, kg, PRN Hypertensi on, Start date: 04/06/20 5:49:00 [employer]PERVISOR, Duration: 30 day, Stop date: 05/06/20 5:48:00 [employer]PER[employer]OR Labetalol 2019-05 No 10 mg, Memori a 2-04 Route: l 11:49: IVP, Drug form: INJ, [id number] , Dosing Weight 79.545, kg, PRN Hypertensi on, Start date: 04/06/20 5:49:00 [employer]PERVISOR, Duration: 3 doses or times, Stop date: Limited # of times Dexamethaso No 4 mg, Memor ia ne 8-07 Route: PO, l 23:00: Q6H, Dosing Weight 63.636, kg, Start date: 12/09/19 18:00:00 CDT, Duration: 30 day, Stop date: 01/08/20 12:00:00 CDT OLANZapine 2020-0 Yes 5 mg = 1 Mem oria 5 mg oral 8- tab, PO, l tablet, 21:51: BID, PRN Parveen n disintegrat 00 Agitation, ing # 60 tab, 0 Refill(s), [id number], 167.64, cm, 12/05/19 22:02:00 CDT, Height, 63.636, kg, 12/05/19 22:02:00 CDT, Weight Dexamethaso 2020-0 Yes 4 mg = 1 Me moria ne 4 MG - tab, PO, l Oral Tablet 21:51: BID, X 30 H erm day, # 60 tab, 0 Refill(s), Pharmacy: [facility] #[id number], 167.64, cm, 12/05/19 22:02:00 CDT, Height, 63.636, kg, 12/05/19 22:02:00 CDT, Weight Dexamethaso 2019-0 No Notes: [facility] raeann ne 12-08 Concentrat l 21:00: ion: [place] 00 4mg/ml Dexamethaso 2019-0 No Notes: [facility] raeann ne - Give with l 19:22: food. (Same As: Decadron) famotidine 2019-0 No Notes: Memor ia - (Same as: l 14:00: Pepcid) olanzapine 2019-0 No Notes: Memor ia 8- (Same as: l 01:07: ZyPREXA Zydis ODT-Oral Disintegra ting Tablet) Clonazepam 2019-0 No Notes: Memor ia - (Same As: l 14:00: KlonoPIN) Hazardous Drug Group 3:Reproduc tive risk Hazardous Drug -- Refer to safe handling procedure PPE Matrix Ativan 2019-0 No Notes: Memoria 8 (Same as: l 05:11: Ativan) Ativan No Notes: Memoria 8-05 (Same as: l 02:12: Ativan) Cortef No Notes: Memoria 8-04 (Same as: l 22:00: Cortef) levothyroxi 2019- Yes 125 Memori a ne 125 mcg 8-04 microgram l (0.125 mg) 17:59: = 1 tab, Her bonilla oral tablet 00 PO, Daily Hydrocortis No Notes: [facility] raeann one - (Same as: l 15:31: Cortef) Keppra No 500 mg, Memoria 12-05 Route: l 14:00: IVPB, Q12H, Dosing Weight 63.636, kg, Priority: Routine, Start date: 12/06/19 9:00:00 CDT, Duration: 30 day, Stop date: 01/04/20 21:00:00 CDT Clonazepam No Notes: Memor ia 8-04 (Same As: l 14:00: KlonoPIN) Hazardous Drug Group 3:Reproduc tive risk Hazardous Drug -- Refer to safe handling procedure PPE Matrix lamotrigine No Notes: [facility] raeann 200 MG Oral - (Same l Tablet 14:00: as:LaMICta Lanny nn 00 l) Levetiracet No Notes: [facility] raeann am 1000 MG - (Same l Oral Tablet 14:00: as:Keppra) Thyroxine No Notes: Memori a 8-04 Take 1 l 14:00: hour before or 2 hours after meal; Enteral feeds may interefere with the absorption of this medication . (Same as:Levothr oid) pregabalin No Notes: Memor ia 8-04 (Same as: l 14:00: Lyrica) Sertraline No Notes: Memor ia 8-04 (Same as: l 14:00: Zoloft) Famotidine No Notes: Memor ia 8-04 (Same as: l 14:00: Pepcid) Can be dilute in 5-10cc NS IVP: Slow IV push over at least 2 minutes. Dexamethaso 2020-0 No Notes: [facility] raeann ne 12-05 Concentrat l 13:00: ion: 4mg/ml levothyroxi 2020-0 No 0 Memori a ne 125 mcg 12-05 Refill(s) l (0.125 mg) 11:51: Matty oral tablet 00 hydrocortis 2020-0 No TK 3 TS PO Memoria one 5 mg 12-05 QAM AND 1 l oral tablet 11:51: T IN THE AFTERNOON PLUS EXTRA IN TIMES OF STRESS Ergocalcife 2020-0 Yes 50,000 [facility] raeann rol [id number] 12-05 IntlUnit = l UNT Oral 11:51: 1 cap, PO, Her bonilla Capsule 00 qWeek sertraline 2019-0 Yes 100 mg = 1 M emoria 100 mg oral 12-05 tab, PO, l tablet 11:51: Daily Levetiracet 2020-0 Yes 1,000 mg = Memoria am 1000 MG 12-05 1 tab, PO, l Oral Tablet 11:51: BID lamotrigine 2020-0 Yes 400 mg = 2 Memoria 200 MG Oral 12-05 tab, PO, l Tablet 11:51: BID clonazePAM 2019-0 No 0.5 mg = 1 M emoria 0.5 mg oral 12-05 tab, PO, l tablet 11:51: BID pregabalin 2020-0 Yes 75 mg = 1 Me moria 75 mg oral 12-05 cap, PO, l capsule 11:51: BID, TK 1 Lanny nn 00 C PO BID Dextrose 2020-0 No 12.5 gm, Memor ia 50% Syringe 12-05 25 mL, l (D50W) 11:49: Route: IVP, Drug Form: INJ, Dosing Weight 63.636, kg, PRN, PRN Blood Glucose Results, Start date: 12/06/19 6:49:00 CDT, Duration: 30 day, Stop date: 01/05/20 6:48:00 CDT, 0 Dextrose 2020-0 No 25 gm, 50 [facility] raeann 50% in - mL, Route: l Water IV 11:49: IVP, Drug Form: INJ, Dosing Weight 63.636, kg, PRN, PRN Blood Glucose Results, Start date: 12/06/19 6:49:00 CDT, Duration: 30 day, Stop date: 01/05/20 6:48:00 CDT, 0 Glucagon 2020-0 No 1 mg, Memoria 12-05 Route: IM, l 11:49: Drug form: Matty PDR/INJ, PRN, Dosing Weight 63.636, kg, PRN Blood Glucose Results, Start date: 12/06/19 6:49:00 CDT, Duration: 30 day, Stop date: 01/05/20 6:48:00 CDT, 0 Dexamethaso 2019-0 No 8 mg, Memor ia ne 12-05 Route: l 09:58: IVP, ONCE, Dosing Weight 63.636, kg, Priority: STAT, Start date: 12/06/19 4:58:00 CDT, Stop date: 12/06/19 4:58:00 CDT Keppra 2019-0 No 1,000 mg, Memori a 12-05 Route: l 09:39: IVPB, ONCE, Dosing Weight 63.636, kg, Priority: STAT, Start date: 12/06/19 4:39:00 CDT, Stop date: 12/06/19 4:39:00 CDT levETIRAcet levETIRAcet Yes BLAINE TAKE 2 Univers am 500 MG am 500 MG 2-05 MERCER TABLETS BY ity of Oral Tablet Oral Tablet 00:00: M.D. MOUTH [place] 00 TWICE Physici DAILY ans Vitamin D Vitamin D Yes EILEEN TAKE 1 Univers (Ergocalcif (Ergocalcif 1-17 GUTTENBERG CAPSULE BY ity of [place]) 1.25 [place]) 1.25 00:00: M.D. MOUTH [place] MG (68010 MG (35704 00 WEEKLY Phy sici [place]) Oral [place]) [...] tab, PEG, l tablet 20:34: Daily, 0 Matty 00 Refill(s) levothyroxi Yes 125 Memori a [...] tab, PEG, l Tablet 20:34: BID, 0 [place] 00 Refill(s) pantoprazol Yes 40 mg = 1 M emoria e 40 mg 1-25 pkt, PEG, l oral 20:34: Daily, 0 Matty granule 00 Refill(s) gabapentin Yes 300 mg = 6 M emoria 50 MG/ML 1-25 mL, PEG, l Oral 20:34: Q8H, 0 Matty Solution 00 Refill(s) Imodium A-D No Notes: [facility] raeann 05-28 (Same as: l 19:17: Imodium) Matty 00 Menthol No Notes: Memoria 0.0044 1-25 (Same as: l MG/MG / 16:29: Calmosepti Herm naye Zinc Oxide 00 ne) 0.2 MG/MG Topical Ointment [Calmosepti ne Ointment] potassium No Notes: Memori a chloride 25 (Same as: l 13:31: Potassium Chloride) Protonix No 40 mg, 1 Memor ia 1-24 pkt, l 15:00: Route: PEG, Drug form: GRAN/REC, Daily, Dosing Weight 76.818, kg, Start date: 05/27/15 9:00:00, Duration: 30 day, Stop date: 06/25/15 9:00:00 Thyroxine No 125 Memoria 1-24 microgram, l 12:30: 1 tab, Route: PEG, Drug form: TAB, Q630AM, Dosing Weight 76.818, kg, Start date: 05/27/15 6:30:00, Duration: 30 day, Stop date: 06/25/15 6:30:00 Dexamethaso No 8 mg, 2 Mem oria ne -24 tab, l 03:00: Route: PEG, Drug form: TAB, Q12H, Dosing [...] emoria en 05-26 Start l 21:38: date: 05/26/15 15:38:00, Duration: 30 day, Stop date: 06/25/15 15:37:00 Zofran No Notes: Memoria -23 (Same as: l 21:37: Zofran) MEDICATION WASTE Product Size: 4 mg Product Wasted: 0 mg Glucose 50 No 1,000 mL, Me moria MG/ML / 05-26 Rate: 75 l Sodium 11:57: ml/hr, [place] Chloride 00 Infuse 0.154 over: 13.3 MEQ/ML hr, Route: Injectable IV, Dosing Solution Weight 76.818 kg, Total Volume: 1,000, Start date: 05/26/15 5:57:00, Duration: 30 day, Stop date: 06/25/15 5:56:00 Gastrografi No Notes: [facility] raeann n 05-25 WASTE: F/P l 20:51: - Black; E [place] - Municipal Trash Bin Flagyl No Notes: Memoria 05-24 (Same as: l 17:00: Flagyl) Matty Avoid alcohol. 200 ML No Notes: Do Memori a Ciprofloxac 05-24 not l in 2 MG/ML 17:00: refrigerat H ermann Injection 00 e Thyroxine No Notes: Memori a 05-24 (Same as: l 15:00: Synthroid) [place] 00 Keppra No Notes: Memoria - Same as l 03:00: Keppra [place] Mix with 100 mL NS, LR or D5W MEDICATION WASTE Product Size: 500 mg Product Wasted: ___ mg Dexamethaso No Notes: [facility] raeann ne 05-24 Concentrat l 03:00: ion: [place] 00 4mg/ml Protonix No Notes: Memoria - (Same as: l 03:00: Protonix) Matty Dexamethaso No Notes: Udke raeann ne - Give with l 23:00: food. [place] 00 (Same As: Decadron) Morphine No Notes: Memoria -20 (Same l 22:26: as:MORPhin [place] 00 e Sulfate) Clindamycin No Notes: [facility] raeann -20 (clindamyc l 22:26: in 150 Matty 00 mg/1 ml (600 mg/4 ml VL) INJ) (Same As: Cleocin) D5NS 1,000 No 1,000 mL, Me moria mL 1-20 Rate: 75 l 19:42: ml/hr, Infuse over: 13.3 hr, Route: IV, Dosing Weight 76.818 kg, Total Volume: 1,000, Start date: 05/23/15 13:42:00, Duration: 30 day, Stop date: 06/22/15 13:41:00 Iohexol No Notes: Memoria 1-20 (Same l 17:16: as:Omnipaq ue 350). Dexamethaso No Notes: [facility] raeann ne 1-19 Give with l 02:00: food. clindamycin No Notes: [facility] raeann 1-18 (Same As: l 00:00: Cleocin) Clindamycin No Notes: [facility] raeann 1-17 (Same As: l 20:00: Cleocin) docusate No Notes: Memoria 1-16 (Same as: l 15:33: Colace) docusate No Notes: Memoria 1-16 (Same as: l 15:30: Colace) Dexamethaso No Notes: [facility] raeann ne 1-16 Give with l 00:00: food. Docusate No Notes: Memoria Sodium 100 1-15 (Same as: l MG Oral 16:46: Colace) (Do Not [Colace] Crush) Dulcolax No Notes: Memoria Laxative 1-15 (Same As: l 16:46: Dulcolax, Bisco-Lax) senna 8.6 No Notes: Memori a mg oral 1-15 (Same as: l tablet 16:46: Senokot) Acetaminoph No Notes: [facility] raeann en 325 MG / 1-15 (Same as: l Hydrocodone 16:45: [place] Lanny nn Bitartrate 00 325/5) Do 5 MG Oral not exceed Tablet 4gm/day of [[place] acetaminop 5/325] hen. Multihance No Notes: Memor ia 529 mg/mL 1-14 Same as l 04:17: Multihance Keppra No Notes: Memoria 1-14 Same as l 02:23: Keppra Matty 00 Mix with 100 mL [...] date: 06/13/15 14:55:00 Versed No Notes: Memoria - (Same as: l 16:57: Versed) MEDICATION WASTE Product Size: 2 mg Product Wasted: ___ mg potassium No Notes: Memori a phosphate + 05-14 (Same as: l Sodium 13:58: K Phosphate. 0.9% IV 250 ) 1 mMol [...] Memoria ne 1-10 MEDICATION l 00:00: WASTE Product Size: 10 mg Product Wasted: ___ mg Docusate No Notes: Memoria 05-12 (Same as: l 23:00: Colace) Hydrocortis No Notes: [facility] raeann one 05-12 (Same as: l 21:00: Cortef) Magnesium No 2 gm, 50 [facility] raeann Sulfate -09 mL, Route: l 19:20: IVPB, Drug form: INJ, ONCE, Dosing Weight 76.818, kg, Total dose = 2 gm, Start date: 05/12/15 13:20:00, Duration: 1 doses or times, Stop date: 05/12/15 13:20:00 Dexamethaso No Notes: Memoria ne - MEDICATION l 19:11: WASTE Product Size: 10 [...] date: 06/10/15 16:23:00 Ativan No Notes: Memoria 05-11 (Same as: l 17:36: Ativan) Versed No [...] 00 l) Thyroxine No Notes: Memori a -07 Take 1 l 15:00: hour before or 2 hours after meal; Enteral feeds may interefere with the absorption of this medication . (Same as:Levothr oid) Sertraline No Notes: Memor ia 05-10 (Same as: l 15:00: Zoloft) Levetiracet No Notes: [facility] raeann am 1000 MG 05-10 (Same l Oral Tablet 15:00: as:Keppra) Clonazepam No Notes: Memor ia 07 (Same As: l 15:00: KlonoPIN) pneumococca No [...] capsular polysacchar heparin No Notes: Memoria sodium, 07 porcine l porcine 14:00: heparin Matty 2500 UNT/ML 00 Injectable Solution Versed No Notes: Memoria - (Same as: l 08:00: Versed) MEDICATION WASTE Product Size: 2 mg Product Wasted: _1__ mg Saline No Notes: Memoria Flush 0.9% 05-10 (Same as: l 03:00: BD Posiflush) Acetaminoph No 1,000 mg = Memoria en 500 MG 05-10 2 tab, PO, l Oral Tablet 00:03: Q4H, PRN He rmann [Tylenol] 00 Pain, # 120 tab, 0 Refill(s) Saline No Notes: Memoria Flush 0.9% 05-09 (Same as: l 23:58: BD Matty 00 Posiflush) lamotrigine No See Memori a 200 MG Oral 05-09 Instructio l Tablet 23:57: ns, 1 tab Parveen n 00 PO Daily, 1 Refill(s) levothyroxi No 125 Memori a ne 125 mcg 05-09 microgram l (0.125 mg) 23:57: = 1 tab, Her bonilla oral tablet 00 PO, Daily, # 30 tab, 0 Refill(s) clonazePAM No 0.5 mg = 1 M emoria 0.5 mg oral 06 tab, PO, l tablet 23:57: BID, # 30 Parveen n 00 tab, 0 Refill(s) sertraline No 100 mg = 1 M emoria 100 mg oral 06 tab, PO, l tablet 23:57: Daily, # Matty 00 30 tab, 0 Refill(s) Levetiracet No 1,000 mg = Memoria am 1000 MG 05-09 1 tab, PO, l Oral Tablet 23:57: BID, # 30 H ermann 00 tab, 0 Refill(s) lamoTRIgine lamoTRIgine Yes BLAINE TAKE 2 Univers 200 MG Oral 200 MG Oral -07 MERCER TABLETS BY ity of Tablet Tablet [...] 00 AT BEDTIME Physici ans Sertraline Sertraline 2006- Yes BLAINE TAKE 1 Univers HCl - 100 HCl - 100 3-21 MERCER TABLET BY ity of MG Oral MG Oral 00:00: M.D. MOUTH [place] Tablet Tablet 00 DAILY Physici ans clonazePAM clonazePAM 2006- Yes BLAINE TAKE 1 Univers 0.5 MG Oral 0.5 MG Oral 3-21 MERCER TABLET BY ity of Tablet Tablet 00:00: M.D. MOUTH [place] 00 TWICE Physici DAILY ans Immunizations Ordered Filled Immunization Date Status Comments [facility] e Immunization Name Name Influenza 2013-03-01 Completed [facility] 15:07:00 Denny Cook ns Vital Signs Vital Name Observation Time Observation Value Comments Source Respitory Rate 2020-04-07 [facility] 00:30:00 Systolic (mm Hg) 2020-04-07 [facility] rmann 00:30:00 Diastolic (mm Hg) 2020-04-07 [facility] ermann 00:30:00 Respitory Rate 2020-04-07 [facility] 00:15:00 Systolic (mm Hg) 2020-04-07 [facility] rmann 00:15:00 Diastolic (mm Hg) 2020-04-07 [facility] ermann 00:15:00 Respitory Rate 2020-04-07 [facility] Herm naye 00:00:00 Systolic (mm Hg) 2020-04-07 [facility] rmann 00:00:00 Diastolic (mm Hg) 2020-04-07 [facility] ermann 00:00:00 Heart Rate 2020-04-06 [facility] Parveen n 14:20:00 Height 2020-04-04 170.18 cm [facility] Parveen n 17:14:00 [facility] BMI Calculated 2020-04-04 [facility] 17:14:00 Respitory Rate 2019-12-09 [facility] 22:00:00 Systolic (mm Hg) 2019-12-09 [facility] rmann 22:00:00 Diastolic (mm Hg) 2019-12-09 [facility] ermann 22:00:00 Respitory Rate 2019-12-09 [facility] 21:00:00 Systolic (mm Hg) 2019-12-09 [facility] rmann 21:00:00 Diastolic (mm Hg) 2019-12-09 [facility] 21:00:00 Respitory Rate 2019-12-09 [facility] 20:00:00 Systolic (mm Hg) 2019-12-09 [facility] rmann 16:00:00 Diastolic (mm Hg) 2019-12-09 [facility] ermann 16:00:00 Temperature Oral 2019-12-06 97.8 F [facility] Erwin rmann (F) 17:30:00 Temperature Oral 2019-12-06 98 F [facility] Erwin rmann (F) 15:30:00 Height 2019-12-06 167.64 cm Missael Santosan n 03:02:00 BMI Calculated 2019-12-06 [facility] 03:02:00 Weight 2019-12-06 Missael Parveen n 03:02:00 Heart Rate 2019-12-06 Missael Santosan n 03:02:00 Body height 2019-12-02 66 [in_us] [facility] 14:58:00 [place] Physician s Weight 2019-12-02 155 [lb_av] [facility] 14:58:00 [place] Physician s Body mass index 2019-12-02 25.02 kg/m2 University o f (BMI) [Ratio] 14:58:00 [place] Physicia ns Body temperature 2019-12-02 98.3 [degF] University 14:58:00 [place] Physician s Systolic blood 2019-06-27 113 mm[Hg] Location: [facility] 15:52:00 Position: [place] Physician s Sitting Diastolic blood 2019-06-27 73 mm[Hg] Location: [facility] 15:52:00 Position: [place] Physician s Sitting Body height 2019-06-27 66 [in_us] University 15:52:00 [place] Physician s Weight 2019-06-27 165.6 [lb_av] University 15:52:00 [place] Physician s Body mass index 2019-06-27 26.73 kg/m2 University o f (BMI) [Ratio] 15:52:00 [place] Physicia ns Heart Rate 2019-06-27 67 /min University 15:52:00 [place] Physician s BP Systolic 2019-05-09 101 mm[Hg] Location: [facility] 10:28:00 Position: [place] Physician s Sitting BP Diastolic 2019-05-09 68 mm[Hg] Location: [place]; University of 10:28:00 Position: [place] Physician s Sitting Height 2019-05-09 66 [in_us] University 10:28:00 [place] Physician s Weight 2019-05-09 157 [lb_av] University 10:28:00 [place] Physician s Body Mass Index 2019-05-09 25.34 kg/m2 University o f Calculated 10:28:00 [place] Physician s Heart Rate 2019-05-09 72 /min University 10:28:00 [place] Physician s BP Systolic 2018-06-21 97 mm[Hg] Location: [facility]; [facility] 14:55:00 Position: [place] Physician s Sitting BP Diastolic 2018-06-21 61 mm[Hg] Location: [facility] 14:55:00 Position: [place] Physician s Sitting Height 2018-06-21 66 [in_us] University 14:55:00 [place] Physician s Weight 2018-06-21 154 [lb_av] [facility] 14:55:00 [place] Physician s Body Mass Index 2018-06-21 24.86 kg/m2 University o f Calculated 14:55:00 [place] Physician s Heart Rate 2018-06-21 65 /min University 14:55:00 [place] Physician s BP Systolic 2018-06-08 101 mm[Hg] Location: [facility] 15:17:00 Position: [place] Physician s Sitting BP Diastolic 2018-06-08 69 mm[Hg] Location: [facility] 15:17:00 Position: [place] Physician s Sitting Height 2018-06-08 66 [in_us] University 15:17:00 [place] Physician s Weight 2018-06-08 159 [lb_av] University 15:17:00 [place] Physician s Body Mass Index 2018-06-08 25.66 kg/m2 University o f Calculated 15:17:00 [place] Physician s Heart Rate 2018-06-08 61 /min University 15:17:00 [place] Physician s Systolic (mm Hg) [...] 14:02:00 Temperature Oral 2015-05-28 97.4 F [facility] (F) 14:02:00 Respitory Rate 2015-05-28 [facility] 09:52:00 Heart Rate 2015-05-28 [facility] Parveen n 09:52:00 Systolic (mm Hg) 2015-05-28 [facility] 09:52:00 Diastolic (mm Hg) 2015-05-28 [facility] ermann 09:52:00 Temperature Oral 2015-05-28 97.9 F [facility] (F) 09:52:00 Weight 2015-05-10 [facility] Parveen n 19:54:00 Height 2015-05-09 165.1 cm [facility] Parveen n 23:35:00 Weight 2015-05-09 [facility] Parveen n 23:35:00 BMI Calculated 2015-05-09 [facility] 23:35:00 Procedures Procedure Date / Time Performing Clinician Source Performed [QLH] VITAMIN D, 2019-05-20 00:00:00 [facility] 25-HYDROXY, LC/MS/MS Physicians [QLH] SODIUM 2019-05-09 00:00:00 [place] o [facility] Physicians [QLH] T4, FREE 2019-05-09 00:00:00 University o [facility] Physicians [QLH] VITAMIN D, 2019-05-09 00:00:00 [facility] 25-HYDROXY, LC/MS/MS Physicians [QLH] VITAMIN D, 2018-06-24 00:00:00 [facility] 25-HYDROXY, LC/MS/MS Physicians Craniotomy 1999-05-04 06:00:00 Missael bonilla History of Appendectomy [facility] Physicians History of Ovarian [facility] Surgery Physicians Biopsy of breast Missael sanchez Creation of ELECTRONIC 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 [facility] 14:20:00 Cristopher PAIZ Encounters Start End Encounter Admission Attending Care Care Encounter Source Date/Time Date/Time Type Type Clinicians Facility Department ID 2020-04-06 2020-04-06 Outpatient Esquenazi [facility] [id number] 05:39:00 23:59:00 Florina Ruiz 2020-04-06 2020-04-06 Outpatient Esquenazi [facility] [id number] 05:39:00 23:59:00 Florina Ruiz 2020-04-06 2020-04-06 Outpatient MHH [facility] [id number] MHH 05:39:00 05:39:00 2020-01-27 2020-01-27 Outpatient MHH [facility] [id number] MH 05:00:00 05:00:00 2020-01-18 2020-01-18 Outpatient Serra, [facility] [id number] 13:00:00 23:59:00 David 54 Meño 2020-01-18 2020-01-18 Outpatient [facility] [id number] [facility] 13:00:00 13:00:00 2019-12-05 2019-12-09 Outpatient Karian, [facility] [id number] 22:02:00 19:45:00 Roscoe 16 2019-12-05 2019-12-09 Outpatient Karian, [facility] [id number] 22:02:00 19:45:00 Roscoe 16 2019-12-06 2019-12-05 Inpatient E [facility] MED [id number] [facility] 04:58:00 21:38:00 2019-12-02 2019-12-02 Appointmen PEBBLES NG Otorhinolar [id number] Univers 15:30:00 15:30:00 t; ALBINO [facility] 2019-12-02 2019-12-02 Appointmen PEBBLES ANTHONY Otorhinolar [id number] Univers 14:30:00 14:30:00 t; RENUKA ANTHONY yngology - ity of SANCAK, M.D. [facility] 2019-12-02 2019-12-02 Appointmen PEBBLES AGUSTIN Otorhinolar [id number] Univers 14:00:00 14:00:00 t; LE AGUSTINngology - itAlexei [facility] Physici [facility] 2019-09-30 2019-09-30 Appointmen PEBBLES ANTHONY Otorhinolar [id number] Univers 09:15:00 09:15:00 t; RENUKA ANTHONY yngology - itMarquis M.D. [facility]ici [facility] 2019-09-30 2019-09-30 Appointmen PEBBLES AGUSTIN [id number] Univers 08:30:00 08:30:00 t; LE AGUSTIN [facility] 2019-07-22 2019-07-22 PEBBLES Murillo [id number] Univers 14:00:00 14:00:00 t; LE AGUSTIN [facility] 2019-06-27 2019-06-27 PEBBLES Chun Neurology - 5 [id number] Univers 16:00:00 16:00:00 t; Denny VALLADARES M.D. [facility] Larry Licona M.D. [facility] 2019-06-20 2019-06-20 PEBBLES Chun [facility] [id number] Univers 16:00:00 16:00:00 t; alexandro VALLADARES M.D. [place] Monae VALLADARES M.D. [facility] 2019-05-20 2019-05-20 PEBBLES Murillo Otorhinolar [id number] Univers 14:00:00 14:00:00 t; LE AGUSTINngology - alexandro [facility] 2019-05-09 2019-05-09 PEBBLES Ricks Endocrinolo [id number] Univers 09:45:00 09:45:00 t; Noreen ARELLANO [facility] EILE[facility] Physici M.D. [facility] 2019-01-17 2019-01-17 [facility] [id number] 16:12:46 16:57:15 Visit [facility] [id number] [facility] [id number] [place] [id number] Primary & 198 Specialty Care 2018-06-21 2018-06-21 PEBBLES Chun Neurology [id number] Univers 15:00:00 15:00:00 t; alexandro VALLADARES M.D. [place] Monae VALLADARES M.D. [facility] 2018-06-08 2018-06-08 PEBBLES Ricks Endocrinolo [id number] Univers 15:40:00 15:40:00 t; Noreen ARELLANO [facility] EILEEN Physici M.D. [facility] 2018-03-22 2018-03-22 PEBBLES Ricks [facility] [id number] Univers 09:45:00 09:45:00 t; Noreen ARELLANO y of [place] EILEEN [facility] Physici M.D. ans 2017-09-21 2017-09-21 [facility] [id number] Univers 09:45:00 09:45:00 t; Noreen ARELLANO y of [place] EILEEN [facility]ici M.D. ans 2017-04-16 2017-04-16 [facility] S[facility] [id number] Univers 15:30:00 15:30:00 t; RACHELLE RAWLS ity of [place], M.D. [place] M.D. Physici ans 2017-03-23 2017-03-23 [facility] [id number] Univers 09:00:00 09:00:00 t; Noreen ARELLANO y of [place] EILEEN [facility] Physici M.D. ans 2017-01-12 2017-01-12 [facility] SINAI, [facility] UTP [id number] Univers 10:30:00 10:30:00 t; RACHELLE RAWLS ity of [place], M.D. [place] M.D. Physic ans 2016-10-21 2016-10-21 [facility] ALFA, [facility] UTP [id number] Univers 10:00:00 10:00:00 t; VIET GRIMM M.D. ity of [place], M.D. [place] Physici ans 2016-08-01 2016-08-01 [facility] JESENIA, [facility] UTP [id number] Univers 09:00:00 09:00:00 t; TED BA of [facility] Physici ans 2016-07-15 2016-07-15 [facility]FA, [facility] UTP [id number] Univers 10:30:00 10:30:00 t; VIET GRIMM M.D. ity of [place], M.D. [place] Physici ans 2016-07-01 2016-07-01 Appointkrishna BA, [facility] UTP [id number] Univers 09:30:00 09:30:00 t; TED BA [facility] Physici ans 2015-07-26 2015-07-26 Outpatient Serra, [facility] [id number] 13:46:00 23:59:00 David Wilder 2015-07-05 2015-07-05 Outpatient Geronimo, [facility] [id number] 14:39:00 21:00:00 Vilma Guevara 2015-05-09 2015-05-28 Outpatient Juan, [facility] [id number] 16:27:00 16:51:00 Emma 06 Courtney 1999-11-19 1999-11-19 Orders Doctor MARTY [id number] 00:00:00 00:00:00 Only Unassigned, RIGO [id number] [facility] [id number] Results Test Description Test Time Test Comments Results Result [facility] e Comments CHEM PANEL 2020-04-06 0.89 Memorial 13:46:00 Matty CHEM PANEL 2020-04-06 78 [facility] 13:46:00 [place] ENDOCRINOLOGY 2020-04-06 <1 [facility] 13:46:00 [place] IMMUNOLOGY 2020-04-06 Not Detected Memorial 12:31:00 (04/06/20 6:31 [place] AM) CHEM PANEL 2019-12-08 119 [facility] 05:49:00 [place] CHEM PANEL 2019-12-08 15 Memorial 05:49:00 [place] CHEM PANEL 2019-12-08 0.92 Memorial 05:49:00 Matty CHEM PANEL 2019-12-08 139 Memorial 05:49:00 Matty CHEM PANEL 2019-12-08 3.4 Memorial 05:49:00 [place] CHEM PANEL 2019-12-08 105 Memorial 05:49:00 [place] CHEM PANEL 2019-12-08 28 Memorial 05:49:00 Matty CHEM PANEL 2019-12-08 9.2 Memorial 05:49:00 [place] CHEM PANEL 2019-12-08 9.4 Memorial 05:49:00 Matty CHEM PANEL 2019-12-08 75 Memorial 05:49:00 [place] HEMATOLOGY 2019-12-08 79.4 Memorial 05:49:00 Matty HEMATOLOGY 2019-12-08 16.0 Memorial 05:49:00 Matty HEMATOLOGY 2019-12-08 4.3 Memorial 05:49:00 Matty HEMATOLOGY 2019-12-08 0.3 Memorial 05:49:00 Matty HEMATOLOGY 2019-12-08 7.4 Memorial 05:49:00 [place] HEMATOLOGY 2019-12-08 1.5 Memorial 05:49:00 [place] HEMATOLOGY 2019-12-08 0.4 Memorial 05:49:00 [place] HEMATOLOGY 2019-12-08 9.3 Memorial 05:49:00 Matty HEMATOLOGY 2019-12-08 4.33 Memorial 05:49:00 Matty HEMATOLOGY 2019-12-08 12.6 Memorial 05:49:00 Matty HEMATOLOGY 2019-12-08 37.3 Memorial 05:49:00 Matty HEMATOLOGY 2019-12-08 86.2 Memorial 05:49:00 Matty HEMATOLOGY 2019-12-08 05:49:00 Test Item Value Reference Range Interpretation Comme nts MCH (test code = MCH) 29.2 pg 27.0-31.0 Memorial ZmubznoEKUDZSEAWR6785-96-00 05:49:0033.8[facility] Hermann[facility]MATOLOGY 2019-12-08 05:49:0013.8[facility]orial FgliekdITKWCTOBZC0772-02-14 05:49:08885Jebdsoms FisgeseVJBLUDUSLR4486-45-35 05:49:008.0[facility] HermannURINE [id number] 00:14:00Negative (12/07/19 7:14 PM)[facility]ann[facility] AND TDUYY0737-18-26 14:26:43Yellow *NA*(12/06/19 9:26 AM)[facility] AND [id number] 14:26:43Slight *ABN*(12/06/19 9:26 AM)[facility]ann[facility] AND [id number] 14:26:43 Test Item Value Reference Range Interpretation Comments UA Spec Grav (test code = UA Spec 1.009 1 Grav) [facility] AND [id number] 14:26:43 Test Item Value Reference Range Interpretation Comments UA pH (test code = UA pH) 7.0 1 5.0-8.0 [facility] AND [id number] 14:26:43Negative *NA*(12/06/19 9:26 AM) [facility] AND [id number] 14:26:43Small *ABN*(12/06/19 9:26 AM) [facility] AND [id number] 14:26:43<1.0[facility]ann[facility] AND [id number] 14:26:43Negative (12/06/19 9:26 AM)[facility] AND BJYLF7512-31-10 14:26:43Large *ABN*(12/06/19 9:26 AM)[facility]ann[facility] AND [id number] 14:26:431[facility]ann[facility] AND IKTZK5716-58-26 14:26:431 Memorial QtycozeMJWOXURFMY3121-19-96 09:39:00Not Detected (12/06/19 4:39 AM) [facility] HermannCHEM BYZTF5049-00-04 07:59:62971Smdqlcsh HermannCHEM PANEL 2019-12-06 07:59:007[facility] HermannCHEM TJJSJ0691-16-87 07:59:000.92[facility] HermannCHEM TMNLU7361-38-57 07:59:66035Pwgbfcrz HermannCHEM MEQOL9228-12-23 07:59:004.7[facility] HermannCHEM OCFGE4024-35-88 07:59:35578Lxdwwyov HermannCHEM BTAVZ0890-23-93 07:59:0022[facility] HermannCHEM BBIDW3866-19-07 07:59:009.4 [facility] HermannCHEM NLIXJ0079-11-67 07:59:0013.7[facility] HermannCHEM PANEL 2019-12-06 07:59:0075[facility] HermannCHEM UJPZH7749-57-18 07:59:001.1[facility]orial DsnkhncYUNFHJMVLO4860-41-28 07:59:004.5Memorial OoocuumKWRFMJQFJG9488-38-66 07:59:004.87Memorial DnmasspQPIQYGIVBA8016-45-28 07:59:0014.4[facility] [place] SBJAVAJNTC5780-29-29 07:59:0042.4[facility]orial LihsqwkASCTFGHFLB2713-47-19 07:59:00 87.0[facility]orial UhxysufLKUYFWTEQW1962-05-41 07:59:00 Test Item Value Reference Range Interpretation Comments MCH (test code = MCH) 29.5 pg 27.0-31.0 [facility] SystemUjmglrpEANFXPTTJU2310-19-73 07:59:0033.9[facility] 2019-12-06 07:59:0013.9[facility] TdzreyaFWXARPGOHA9019-54-62 07:59:70337Tgnhhkgf BlkaymlIXFQPTDKHH3099-40-36 07:59:007.3[facility] AozhoxzDZZFKVFUUS4002-62-23 07:59:00 Test Item Value Reference Range Interpretation Comments PT (test code = PT) 12.1 s 12.0-14.7 [facility] SystemTrbvdxzTDXQFUZWMD4114-19-56 07:59:00 Test Item Value Reference Range Interpretation Comments INR (test code = INR) 0.90 1 0.85-1.17 [facility] SystemIrcqyvwGZSNAJBWMK3035-21-16 07:59:00 Test Item Value Reference Range Interpretation Comments PTT (test code = PTT) 26.2 s 22.9-35.8 [facility] SystemMfhyoyeCKOVSRUAXR5008-38-63 07:59:00 Test Item Value Reference Range Interpretation Comments ACT (TEG) Rapid (test code = ACT (TEG) 97 s 86-118 Rapid) [facility]SnbbutiMUOGZMFAAF5576-94-89 07:59:00 Test Item Value Reference Range Interpretation Comments Split Point Rapid (test code = Split 0.4 min Point Rapid) [facility] DallasGdgcepsUCXRMBLETJ0835-84-10 07:59:00 Test Item Value Reference Range Interpretation Comments R-time Rapid (test code = R-time 0.5 min 0.4-0.7 Rapid) [facility] DallasSvtywrbJQRAQWPVTY3432-10-69 07:59:00 Test Item Value Reference Range Interpretation Comments K-time Rapid (test code = K-time 3.0 min 0.6-2.3 Rapid) [facility] DallasFgwsmopURUPHOIIFZ2941-89-52 07:59:00 Test Item Value Reference Range Interpretation Comments Angle Rapid (test code = Angle 71 degrees 64-80 Rapid) [facility] DallasGohjnrxCCKQQIONZV3812-15-19 07:59:00 Test Item Value Reference Range Interpretation Comments Max Amplitude Rapid (test code = Max 49 mm 52-71 Amplitude Rapid) [facility] DallasEhyjlvdRZAPPACAMS5844-51-44 07:59:004.8[facility] HermannHEMATOLOGY 2019-12-06 07:59:000.0[facility]orial PgotieaFSZHIWBIIV3067-52-37 07:59:00Normal (12/06/19 2:59 AM)[facility] LfxgockUUIWOOKARE7517-35-87 07:59:00Normal (12/06/19 2:59 AM)[facility] OygamzvRQZGFOHAAO6460-14-83 07:59:0075.9[facility] HermannHEMATOLOGY 2019-12-06 07:59:0021.3[facility] SvyhofuYGNTFKCAXI9375-04-09 07:59:002.3[facility]orial KwvmbrbLSNGSEGJXR9395-79-05 07:59:000.1[facility]orial AxgizveLVNEBPQRFI2236-24-90 07:59:000.4[facility]orial BzpcdpxKKCVDGBFJL2492-74-77 07:59:003.4[facility] Matty YMJAMTLSON2396-73-22 07:59:001.0[facility]orial WdjgofuRHJDPLKTOX8841-63-88 07:59:000.1 [facility] GJTZVWE5930-29-66 07:58:00Negative (12/06/19 2:58 AM) [facility]] [id number] 12:34:00 Test Item Value Reference Range Interpretation Comments SODIUM (test code = 138 mmol/L 135-146 N SPECIMEN RECEIVED DATE SODIUM) AND TIME: [facility]] T4, [id number] 12:34:00 Test Item Value Reference Range Interpretation Comments T4, FREE (test 1.2 ng/dl 0.8-1.8 N SPECIMEN RECE IVED DATE AND code = T4, FREE) TIME: [facility]] VITAMIN D, 25-HYDROXY, LC/MS/[id number] 12:34:00 Test Item Value Reference Range Interpretation [...] and D3 fractions is re quired, the [employer] D(TM)25-OH VIT D, (D2,D3), LC/MS/MS is recommended: order code 91392 (pat ients >2yrs). For mor e information on this test, go to:http://educa tion.[employer] /faq/FAQ16 3(This link is being provided for informational/e ducational purposes only.) SPECIMEN RECEIVED DATE A ND TIME: [facility]] BASIC METABOLIC PANEL [id number] 16:42:00 Test Item Value Reference Range Interpretation Comments GLUCOSE; Normal 89 mg/dl 65-139 N Non-fasting (test code = reference inter clem 1547-9) UREA NITROGEN 10 mg/dl 7-25 N (BUN) (test code = UREA NITROGEN (BUN)) CREATININE (test 0.99 mg/dl 0.50-1.10 N code = CREATININE) eGFR NON- 69 {ML/MIN/1.7} > OR = 60 N HAITIAN (test code = eGFR NON-) eGFR 80 {ML/MIN/1.7} > OR = 60 N HAITIAN (test code = eGFR ) BUN/CREATININE NOT [...] SPECIMEN RECEIVED = CALCIUM) DATE AND TIME: [facility]] T4, TOTAL (THYROXINE)2018-06-08 16:42:00 Test Item Value Reference Range Interpretation Comments T4, TOTAL 6.0 {mcg/dl} 4.8-10.4 <1 month: Not (THYROXINE) (test Establishe d -23 code = T4, TOTAL months: 6.0 -13.2 mcg/dL (THYROXINE)) 2-12 years: 5.5-12.1 mcg/dL 13-2 0 years: 5.5-11.1 mcg/dL >20 years: 4.8- 10.4 mcg/dL Pregna ncy 1st Trimester: 6.4- 15.2 mcg/dL 2nd Tr imester: 7.4-15.2 mcg/dL 3rd Trimester: 7.7- 13.8 mcg/dL All Tr imesters Together: 7.0-14.7 mcg/dL Conversi on factor: 1 mcg/d L = 12.9 nmol/LSPECIMEN RECEIVED DATE AND TIME: [facility]] T4, [id number] 16:42:00 Test Item Value Reference Range Interpretation Comments T4, FREE (test 1.2 ng/dl 0.8-1.8 N SPECIMEN RECE IVED DATE AND code = T4, FREE) TIME: [facility]] TSH, 3RD [id number] 16:42:00 Test Item Value Reference Range Interpretation Comments TSH; Below Low 0.15 {MIU/L} Reference Ran ge Threshold (test > or = 20 code = 65648-6) Years 0.40- 4.[address] 0.26-2.66 Second trimeste r 0.55-2.73 Third trimester 0.43-2.91SPECIM EN RECEIVED DATE A ND TIME: 64 [facility]] VITAMIN D, 25-HYDROXY, LC/MS/[id number] 16:42:00 Test Item Value Reference Range Interpretation [...] D, (D2,D3), LC/MS/MS is recommended: order code 00306 (pat ients >2yrs). For mor e information on this test, go to:[email or web address] 3(This link is being provided for informational/e ducational purposes only.) SPECIMEN RECEIVED DATE A ND TIME: [facility] [id number] 21:46:0096[facility] [id number] 21:46:008.1[facility] [id number] 21:46:0026 [facility] [id number] 21:46:000.77[facility] PANEL 2015-07-05 21:46:003[facility] [id number] 21:46:003.1[facility] [id number] 21:46:91795Luyvscld HermannCHEM [id number] 21:46:38462Ztorkvyu HermannCHEM [id number] 21:46:87869Mbkvltue HermannCHEM [id number] 21:46:0012.1[facility] YjzoeuuAXWRTTXQPV1084-12-22 21:46:00Normal (07/05/15 3:46 PM)[facility] [id number] 21:46:00 Test Item Value Reference Range Interpretation Comments Tot Cell Ct (test code = Tot Cell Ct) 100 1 [facility] [id number] 21:46:000.0[facility]annHEMATOLOGY 2015-07-05 21:46:00Normal (07/05/15 3:46 PM)[facility] Z[id number] 21:46:0040.0[facility] ByhbperGZWNFPKIPC2375-62-46 21:46:004.0[facility] HLEFRBAWLX4063-28-40 21:46:003.5[facility] BogpfylMOPXZZLYHQ0382-07-11 21:46:002.5 [facility] TgtyajzCEBWFYZMDB2744-28-58 21:46:000.2[facility]annHEMATOLOGY 2015-07-05 21:46:0056.0[facility] TciclwdSWICNYRLXA5194-40-18 21:46:000.0[facility] CisjdvnPQKWMEPILO6328-62-04 21:46:0015.8[facility] ZgtaszhXZWPPJBWQF3239-67-39 21:46:006.9[facility] MowjhzgKUDGTVXFUP3377-80-91 21:46:71749Kzdwvtlp Matty JQIQNJEYDW2077-51-15 21:46:0083.1[facility] MdzpsltLPICJXNPYC1308-01-63 21:46:00 3.91[facility] WjarxkfSBXVRBQFSV5071-28-40 21:46:006.2[facility]annHEMATOLOGY 2015-07-05 21:46:0032.5[facility] ZchmqykFVZIQRRJLF7656-88-88 21:46:0010.8[facility] BdwbjmySPOTRTYNJM2033-13-42 21:46:0033.2[facility] HlywpraVNBPZFRMDX0346-99-74 21:46:00 Test Item Value Reference Range Interpretation Comments MCH (test code = MCH) 27.6 pg 27.0-31.0 [facility] WHXVB8684-67-55 21:19:00Negative (07/05/15 3:19 PM) [facility] LKJBA3560-50-93 21:19:00Negative (07/05/15 3:19 PM) [facility] HZQOD6046-40-16 21:19:000.2[facility] WBFLQ6352-06-48 21:19:00Negative (07/05/15 3:19 PM)[facility] STOOL 2015-07-05 21:19:00Negative *NA*(07/05/15 3:19 PM)[facility] 2015-07-05 21:19:00 Test Item Value Reference Range Interpretation Comments UA pH (test code = UA pH) 7.0 1 5.0-8.0 [facility] UVIIY5449-97-49 21:19:00 Test Item Value Reference Range Interpretation Comments UA Spec Grav (test code = UA Spec 1.015 1 Grav) [facility] FHHOT4320-24-81 21:19:00Clear (07/05/15 3:19 PM)[facility] RHGCW9811-20-11 21:19:00Yellow *NA*(07/05/15 3:19 PM)[facility] ZCPWS6309-23-42 21:19:00None Seen (07/05/15 3:19 PM)[facility] MKWRO5481-83-33 18:52:0093[facility]CHE[facility] UCSYO5107-85-15 18:52:003.3[facility]CHE[facility] SYLPS0850-14-50 18:52:79850Hdzhnayg HermannCHEM YFJCO0007-40-66 18:52:000.80[facility]CHE[facility] FTAFS9428-36-30 18:52:008.6 [facility] RKOUG3997-86-47 18:52:0027[facility]annCHE[facility] PANEL 2015-05-27 18:52:0013.3[facility] ZRQWL5373-46-58 18:52:85671Ifrlsydc HermannCHEM BWLDP4074-55-38 18:52:0093[facility]CHE[facility] KEZKL8397-18-21 18:52:0014[facility]CHE[facility] RTGBP2984-37-74 18:52:000.3[facility]CHE[facility] ZBMWQ8327-17-75 18:52:003.3[facility] CLYSR5491-17-40 18:52:000.1 [facility] MULKL5711-18-48 18:52:37493Pxawemyo HermannCHEM PANEL 2015-05-27 18:52:0031[facility]annCHE[facility] PNZNX0396-83-15 18:52:003.4[facility]annCHE[facility] XTWGE5534-22-91 18:52:46919Hsbazwne HermannCHEM CFOAK4648-94-01 18:52:000.2[facility]annCHE[facility] RARFB0587-42-88 18:52:001.0[facility]annCHE[facility] ILZAE6119-51-16 18:52:006.7[facility]annCHE[facility] DBHAH9626-20-06 12:20:000.9 [facility]CHE[facility] DTAKI5471-44-88 12:20:003.8[facility]annCHEM PANEL 2015-05-25 12:20:0011.1[facility]annCHE[facility] FUNHZ6528-60-64 12:20:0023[facility]annCHE[facility] GICDL5562-40-73 12:20:65688Ggsvyhdp HermannCHEM ZGGUZ7217-06-32 12:20:64829Cmkqhahk HermannCHEM YHMXA2970-52-98 12:20:000.71[facility]annCHE[facility] FSHBI5710-49-87 12:20:004.1[facility]annCHE[facility] MCWTL9547-47-17 12:20:0024 [facility]CHE[facility] WIWBR6641-65-96 12:20:04143Hhfpmkty HermannCHEM PANEL 2015-05-25 12:20:003.3[facility]annCHE[facility] UNQVL4224-93-37 12:20:45811Zqxqjbgp HermannCHEM ENHEB3418-01-12 12:20:0050[facility]annCHE[facility] HHRRV7153-84-67 12:20:008.2[facility]annCHE[facility] BREBX5409-98-18 12:20:007.1[facility]annCHE[facility] VFHIE0929-06-08 12:20:000.4[facility]annCHE[facility] GYADU0313-36-10 12:20:01084 [facility] OUYZI3005-51-36 12:20:60644Fikuyheu HermannCHEM PANEL 2015-05-25 12:20:0016[facility] KqqcyhzAPIQKGDVBM6663-53-28 12:20:0014.9[facility] SswpbysNVTLFKLGJK4482-11-36 12:20:003.4[facility] CcgplkjSDDLOJWCVG8726-24-54 12:20:000.1[facility] HqfvymkIRQVRDFSAA4886-01-19 12:20:000.2[facility] HLRNTIOUEE1053-64-79 12:20:001.3[facility] UajviroQRZQNKITDK5247-92-38 12:20:000.3 [facility] UsocvvmDPLGOPAGJI8849-28-89 12:20:006.9[facility]annHEMATOLOGY 2015-05-25 12:20:0081.4[facility] WrannadQXLAXIKHXG7607-00-51 12:20:004.66[facility] NptlcxeDCRHWBCCLK4418-75-18 12:20:0039.4[facility] GckslkxTXWQSOMQRJ0550-20-13 12:20:0013.1[facility] BuiibppNRKSIRGRAK9783-20-81 12:20:008.5[facility] ZSQVDVYRVA1868-91-62 12:20:0033.2[facility] YohgijgVYGBRBPPLT4395-34-19 12:20:00 Test Item Value Reference Range Interpretation Comments MCH (test code = MCH) 28.1 pg 27.0-31.0 [facility] OzdjwzoOBAIYUMPHF9678-24-95 12:20:0084.5[facility]annHEMATOLOGY 2015-05-25 12:20:007.8[facility] BjnhzefSLHFZBFSXO3983-62-90 12:20:72309Orkxuvjc WkiehofAWOYXOFIHR1631-23-15 12:20:0015.9[facility]annCHE[facility] HYBSS3717-48-19 06:01:93138Jcpcjacd HermannCHEM IVDSQ1123-24-42 06:01:001.0[facility]annCHE[facility] NFYJL7903-22-44 06:01:0096[facility]annCHE[facility] LITRH1674-53-01 06:01:009.1 [facility] KMTTS2729-21-54 06:01:77332Guvahovr HermannCHEM PANEL 2015-05-24 06:01:000.6[facility]annCHE[facility] FXABL6069-33-47 06:01:0083[facility]annCHE[facility] GZPEM7690-73-24 06:01:007.4[facility]annCHE[facility] AFTJB2376-41-90 06:01:0025[facility]CHE[facility] HPSZA9111-20-14 06:01:003.7[facility]annCHE[facility] FPHFY5885-76-90 06:01:0015.6[facility]annCHE[facility] WAQNV4443-94-69 06:01:003.7 [facility] PZUIT9948-22-15 06:01:000.87[facility]annCHEM PANEL 2015-05-24 06:01:0022[facility]annCHE[facility] URHJM8159-44-09 06:01:13211Aycczsej HermannCHEM GQLPK2029-33-41 06:01:003.6[facility]annCHE[facility] UGXPF6090-48-14 06:01:78693Grhvnidw HermannCHEM OXZLS4041-96-12 06:01:0022[facility]annCHEM TEKOL0358-02-60 06:01:28815Dgcbhing BwpqwcqXFNHWAZUHX4261-24-44 06:01:000.1 [facility] YloujrmPZMKXTLWJR4488-47-08 06:01:0081.5[facility]annHEMATOLOGY 2015-05-24 06:01:000.7[facility] XpwehojFHJVECKAPD9250-53-56 06:01:0011.3[facility] UruafakNXJNOBUMNT7131-24-53 06:01:000.5[facility] DfmvfczGWQGRFJIWL5568-20-54 06:01:001.7[facility] TptrcxdSYWTHHVVVZ9984-55-67 06:01:0012.4[facility] YJQSKLTHTE1567-67-97 06:01:000.4[facility] XvxwbniKUJVGFJIAA0632-27-39 06:01:005.2 [facility] PacehgxBHLYRPPKKB8061-55-32 06:01:008.1[facility]annHEMATOLOGY 2015-05-24 06:01:0013.9[facility] TceirwhRGGBSCGYVJ1068-05-18 06:01:0015.6[facility] KfjyotzVEGZYXBBUS6020-34-29 06:01:14407Nkiamsnl OklvyfjZOCXIZWABR8748-15-12 06:01:005.06[facility] IddtchqTZEWSGULGL7721-45-50 06:01:0032.2[facility] LNALXMYGHG5494-38-23 06:01:00 Test Item Value Reference Range Interpretation Comments MCH (test code = MCH) 26.5 pg 27.0-31.0 [facility] NeifwckNPJQKHUYFF3633-13-18 06:01:0041.6[facility]annHEMATOLOGY 2015-05-24 06:01:0082.1[facility] IchifegAWHCGBCWPA9788-28-75 06:01:0013.4[facility] ApaawskFQWRIXOELZ7342-65-95 21:17:0015.5[facility] UwfzhrqFXFMZWTQWE9018-84-20 21:17:0033.2[facility] BfdqtkqTJUZVOVMVC6068-22-94 21:17:007.7[facility] NPTXSRLAWJ6465-66-54 21:17:32797Feorfmhq JtyyedvGTUZHWOBQS1165-81-53 21:17:00 11.3[facility] EcdpvdgWLDXTXPSPK9371-85-64 21:17:0082.5[facility]annHEMATOLOGY 2015-05-23 21:17:00 Test Item Value Reference Range Interpretation Comments MCH (test code = MCH) 27.4 pg 27.0-31.0 [facility] EfcywvaPJWKUVNLQK1789-40-78 21:17:005.00[facility]annHEMATOLOGY 2015-05-23 21:17:0041.3[facility] HkgzsxwZRZGFOQTWU4263-62-58 21:17:0013.7[facility] IbdbjqpBFWUVJDLXV0448-99-07 21:17:007.8[facility] KyavnddNDYSFOSWGI7135-32-36 21:17:002.5[facility] DpagripHLPPDGETRW3553-87-28 21:17:0067.0[facility] EDPKACRBFV9133-98-58 21:17:000.6[facility] WmwkbmmGBMWXBVEYQ9310-69-96 21:17:005.0 [facility] CkcftwjLNZKGDETMR6748-85-10 21:17:003.0[facility]annHEMATOLOGY 2015-05-23 21:17:001.0[facility] UxrcnlvWDDFMXZROT3239-56-10 21:17:00Normal (05/23/15 3:17 PM)[facility] HxezaepLCPMRJXQHH7456-47-65 21:17:00Normal (05/23/15 3:17 PM)[facility] KhjjtsxIFWETYIXAA6108-13-81 21:17:000.0[facility] DIDWMOTMHF7082-23-67 21:17:002.0[facility] KurywirUMZPDVLSZY1949-98-75 21:17:00 22.0[facility] ByioclrCSKDYAEZSU5587-58-68 21:17:00 Test Item Value Reference Range Interpretation Comments Tot Cell Ct (test code = Tot Cell Ct) 100 1 [facility]CHE[facility] YLYQG2390-12-17 15:16:0033[facility]annHEMATOLOGY 2015-05-21 10:35:000.5[facility] MisswtrVRXCUQHONE9735-18-85 10:35:000.1[facility] KpqxmakOZWICCWWKV0059-73-22 10:35:000.3[facility]annCHEM EOUAO2547-99-39 10:27:002.4[facility]annCHEM DALEB1043-79-87 10:27:001.7[facility] XHKMFAOMNP5887-06-28 10:27:00Normal (05/15/15 4:27 AM)[facility]annHEMATOLOGY 2015-05-15 10:27:00Normal (05/15/15 4:27 AM)[facility] ZlmqgckBXREZLIJAS6178-65-66 10:27:001.24[facility] UohqokzICQTGJSBIF7338-86-34 10:27:00 Test Item Value Reference Range Interpretation Comments PT (test code = PT) 15.9 s 12.0-14.7 [facility]CHE[facility] GDSSU1327-22-57 09:51:002.2[facility]annCHEM PANEL 2015-05-14 09:51:002.1[facility] ZcvdrfcJAUVQBNFWUZIY9212-62-90 12:58:00<0.03 [facility]annCHE[facility] OJPZQ0050-47-77 09:21:002.2[facility]annCHEM PANEL 2015-05-13 09:21:003.2[facility] UhmthkxTPIDEDMBPQ4163-57-29 09:21:00 Test Item Value Reference Range Interpretation Comments PT (test code = PT) 17.0 s 12.0-14.7 [facility] BipvrclDYEQCXAPCG7177-99-39 09:21:00 Test Item Value Reference Range Interpretation Comments PTT (test code = PTT) 53.3 s 22.9-35.8 [facility] DchxzpsYLQOFZKTLH4706-71-10 09:21:001.35[facility]annHEMATOLOGY 2015-05-13 09:21:001+ (05/13/15 3:21 AM)[facility] AdbmumvEFMRPCGQBJ8649-41-46 09:21:001+ *ABN*(05/13/15 3:21 AM)[facility] BcuojsgUPWWXVFFXJ1722-58-70 10:03:00 0.1[facility]DR[facility] PRMOFM7802-26-72 00:25:00Negative *NA*(05/11/15 6:25 PM) [facility] CXQXWG8534-79-11 00:25:00Negative *NA*(05/11/15 6:25 PM) [facility] PBKYGZ8439-19-58 00:25:00Negative *NA*(05/11/15 6:25 PM) [facility] CQPWEC4608-21-14 00:25:00Negative *NA*(05/11/15 6:25 PM) [facility] LKFYTT2398-39-76 00:25:00See Note (05/11/15 6:25 PM)[facility] TOROGN6552-04-64 00:25:00Positive *ABN*(05/11/15 6:25 PM)[facility] KJQBFD9325-74-66 00:25:00Negative *NA*(05/11/15 6:25 PM)[facility] NAKEJL1775-53-56 00:25:00Negative *NA*(05/11/15 6:25 PM)[facility] YLFLW7236-80-66 00:25:00<1[facility] STOOL 2015-05-12 00:25:001[facility] NFDPQ4214-30-31 00:25:00Negative (05/11/15 6:25 PM)[facility] UBPFK9071-29-60 00:25:006.0[facility] EYINH4849-11-29 00:25:001.019[facility] STOOL 2015-05-12 00:25:00Negative (05/11/15 6:25 PM)[facility] STOOL 2015-05-12 00:25:00Negative (05/11/15 6:25 PM)[facility] STOOL 2015-05-12 00:25:002.0[facility] ZDIGI7097-96-11 00:25:00Negative *NA*(05/11/15 6:25 PM)[facility] UZLIV5454-39-92 00:25:00Clear (05/11/15 6:25 PM)[facility] XFYSW7682-80-49 00:25:00Yellow *NA*(05/11/15 6:25 PM)[facility] KCQG8704-85-05 00:25:00Negative (05/11/15 6:25 PM)[facility] FnltgttGNKHXDLIFOHIN7634-36-69 00:14:000.07[facility] HermannPARATHYROID VRIPQPM4261-28-77 00:14:001.08[facility] HermannPARATHYROID EPJIPAD9878-96-92 00:14:001.11[facility] OafemthMMFAUPPILK4112-70-62 00:14:0041 [facility] WuhdttyHZIUCXHWNO6090-65-94 09:17:000.1[facility]annHEMATOLOGY 2015-05-11 09:17:000.2[facility] XzvpderVBBXKWLFVJ4172-86-52 14:37:0038.4[facility] ZroqzxfEYXJXAGFCQ6383-34-85 13:52:000.2[facility]annCHEM VLJLQ7185-22-69 02:28:000.9[facility] HermannPARATHYROID MSXFXYV8047-89-59 02:28:001.01[facility] HermannPARATHYROID TMIFOHS7121-27-39 02:28:000.98[facility] HermannTOXICOLOGY 2015-05-10 02:28:0034.2[facility] KealtvvPDBLXBINCG5891-88-42 02:28:0012[facility]
--- OUTSIDE RECORDS SUMMARY | 2020-04-09 18:51 | XMS REPORT | Summary of Care ---
[...] 21-Jun-2018 Active Vitamin D (Ergocalciferol) 1.25 MG (22148 UT) Oral Capsule TAKE 1 CAPSULE BY MOUTH WEEKLY Quantity: 12 Refills: 0 EILEEN PAIZ M.D. Start : 20-May-2019 Active levETIRAcetam 500 MG Oral Tablet TAKE 2 TABLETS BY MOUTH TWICE DAILY Quantity: 120 Refills: 0 BLAINE MRECER M.D. Start : 08-Jun-2019 Active Allergies and [...] Dates Details Influenza on: 01-Mar-2013 Lot #: [id number] Family History Name Dates Details Family history [...] On: 08-May-2020 14 :20 Interventions Provided Medication ChangesPregabalin 75 MG Oral Capsule - Renew Instructions Name Dates [...]
--- OUTSIDE RECORDS SUMMARY | 2020-04-09 18:51 | XMS REPORT | Summary of Care ---
:1975 Author Name Jony HERZOG Address Unavailable Unavailable , Care Team Providers Name Role Phone SYLVIE Sorto Unavailable Unavailable IZABEL Sorto Unavailable Unavailable PIERRE OTEOR Unavailable Unavailable RAJ OTERO UT Unavailable Unavailable IZABEL OTERO Unavailable Unavailable AGUSTIN AUD Unavailable Unavailable [...] 21-Jun-2018 Active Vitamin D (Ergocalciferol) 1.25 MG (42780 UT) Oral Capsule TAKE 1 CAPSULE BY [...] Dates Details Influenza on: 01-Mar-2013 Lot #: [id number] Family History Name Dates Details Family history [...]
--- OUTSIDE RECORDS SUMMARY | 2020-04-09 18:51 | XMS REPORT | Summary of Care ---
:1975 Author Name SYLVIE Sorto Address Unavailable Unavailable , Care Team Providers Name Role Phone SYLVIE Sorto Unavailable Unavailable IZABEL Sorto Unavailable Unavailable PIERRE OTERO Unavailable Unavailable [...] 21-Jun-2018 Active Vitamin D (Ergocalciferol) 1.25 MG (29005 UT) Oral Capsule TAKE 1 CAPSULE BY [...] Dates Details Influenza on: 01-Mar-2013 Lot #: [id number] Family History Name Dates Details Family history [...]
[2020-04-09] MEDS ORDERED: RSI MEDICATION KIT IV ONE ×2 (18:54→18:56)
[2020-04-09] MEDS ORDERED: MIDAZOLAM HCL 2 MG/2 ML INJ ONE (19:02)
[2020-04-09] MEDS ORDERED: NA CHLORIDE 0.9% 2,000 ML ONE (19:14)
[2020-04-09] MEDS ORDERED: DOPAMINE/D5W 400 MG/250 ML BAG IV ONE (19:25)
--- NOTE | 2020-04-09 19:26 | RAD REPORT ---
EXAM DESCRIPTION: Jordyn Single View04/09/2020 7:06 pm CLINICAL HISTORY: Intubation COMPARISON: December 2019 FINDINGS: Endotracheal tube has its tip 4 centimeters above the giovanni. Nasogastric tube is present stomach Marked alveolar opacities within the mid and lower lungs. . The heart is normal size IMPRESSION: Marked alveolar opacities within the mid and lower lungs may secondary to aspiration pne umonia
[2020-04-09 19:28] LABS: BUN Blood Urea Nitrogen 12 mg/dL (7-18); Bicarbonate 22 mmol/L (21-32); Glucose Level 152 mg/dL (74-106); Potassium 3.2 mmol/L (3.5-5.1); Sodium Level 139 mmol/L (136-145)
[2020-04-09] MEDS ORDERED: PIPER/TAZO/NS 3.375gm 3.375 GM/100 ML BAG ONE (19:29)
[2020-04-09] MEDS ORDERED: dexAMETHasone 10 MG/ML VIAL ONE (19:29)
[2020-04-09 19:45] LABS: Absolute Lymphocytes (CBC) 0.6 K/uL (0.7-4.9); Basophils % 0.8 % (0-1.3); Hematocrit 40.4 % (36.0-45.0); MPV 7.2 fL (7.6-11.3); RBC Red Blood Cell Count 4.73 M/uL (3.86-4.86)
[2020-04-09 20:30] LABS: Urine Bacteria <20 /HPF (<20); Urine Mucus 1+ /HPF (NONE SEEN); Urine RBC >50 /HPF (NONE SEEN)
[2020-04-09 20:31] LABS: Urine Blood 2+ (NEG); Urine Glucose NEGATIVE (NEG); Urine Protein NEGATIVE (NEG)
--- NOTE | 2020-04-09 20:51 | RAD REPORT ---
EXAM DESCRIPTION: CT - Head Brain Wo Cont - 04/09/2020 8:32 pm CLINICAL HISTORY: Alteration of awareness/confusion brain neoplasm COMPARISON: December 2019 TECHNIQUE: Computed axial tomography of the head was obtained. IV contrast was not requested. All CT scans are performed using dose optimization technique as appropriate and may include automated exposure control or mA/KV adjustment according to patient size. FINDINGS: An approximately 4.5 centimeter right temporal mass appears mildly diminished in size. Th ere has been mild progression in surrounding vasogenic edema which is moderate to marked. The right l ateral ventricle is compressed. Shift of midline structures approximately 7 millimeters. Right ventricular shunt has its tip in the region of the midbrain. Mild dilatation of the fourth, third and left lateral ventricle. An intracranial bleed is not seen . Postsurgical changes bilaterally. Multiple, bilateral meningiomas. Some are partially calcified. IMPRESSION: 4.5 centimeter right temporal meningioma mildly decreased in size. However the surround ing vasogenic edema is mildly increased. The right lateral ventricle is compressed with shift of midl ine structures 7 millimeters. Development of mild hydrocephalus
--- NOTE | 2020-04-09 21:03 | ER ---
Nurse's Notes [facility] Name: Grace Sarmiento Age: 44 yrs Sex: Female : 1975 Arrival Date: 04/09/2020 Time: 18:51 Bed 3 Private MD: Diagnosis: Pneumonia, unspecified organism-bilateral aspiration;Cerebral edema-7mm right to lrft shift Presentation: 04/09 18:40 Chief complaint: EMS states: pt has hx of multiple brain tumors, had gamma knife iw surgery recently at [place] , pt has had increasing decrease in LOC for past week, was worse today after being fed today at 5 pm, family reported pt turned blue , called EMS, pt was 50% RA on scene, responsive only to pain. Coronavirus screen: Client presents with at least one sign or symptom that may indicate coronavirus-19. Standard/surgical mask placed on the client. Provider contacted for isolation considerations. Ebola Screen: Patient negative for fever greater than or equal to 101.5 degrees Fahrenheit, and additional compatible Ebola Virus Disease symptoms Patient denies exposure to infectious person. Patient denies travel to an Ebola-affected area in the 21 days before illness onset. No symptoms or risks identified at this time. Risk Assessment: Do you want to hurt yourself or someone else? Unable to obtain. 18:40 Method Of Arrival: EMS: [facility] iw 18:40 Acuity: SONJA 1 iw 19:05 Initial Sepsis Screen: Does the patient meet any 2 criteria? Systolic BP < 90 mmHg. jl7 Mean Arterial Pressure (MAP) < 65. HR > 90 bpm. Yes Does the patient have a suspected source of infection? Yes: Productive cough/pneumonia. Onset of symptoms is unknown. Care prior to arrival: None. Transition of care: patient was not received from another setting of care. INSTRUMENT TESTER: 19:17 LMP N/A - Post-menopause jl7 Historical: - Allergies: 19:05 Iodine; iw 19:05 PENICILLINS; iw - Home Meds: 22:04 clonazepam 0.5 mg Oral tab 1 tab 2 times per day [Active]; levetiracetam 1,000 mg Oral ea tab .5 tab every 12 hours [Active]; lamotrigine 200 mg Oral tab 2 tabs 2 times per day [Active]; sertraline 100 mg Oral tab 1 tab once daily [Active]; Vitamin D2 50,000 unit Oral cap 1 cap once wkly [Active]; levothyroxine 125 mcg oral tab 1 tab once daily [Active]; dexamethasone 1 mg Oral tab [Active]; - PMHx: 19:05 BLIND; HARD OF HEARING; Hypothyroidism; Seizures; TUMORS ON BRAIN X 7; iw - PSHx: 19:05 PEG TUBE; BRAIN TUMOR REMOVED; iw - Immunization history:: Adult Immunizations unknown. - Family history:: not pertinent. - Social history:: Smoking status: unknown. - Hospitalizations: : Patient was recently seen at. - History obtained from: sister. Screenin:16 Abuse screen: unresponsive. Nutritional screening: No deficits noted. Tuberculosis jl7 screening: No symptoms or risk factors identified. Fall Risk Secondary diagnosis (15 points) seizures, IV access (20 points). Gait- Normal/Bed Rest/Wheelchair (0 pts) Total Sheppard Fall Scale indicates High Risk Score (45 or more points). Fall prevention measures have been instituted. Side Rails Up X 2 Placed Close to Nursing Station Frequent Obs/Assessments Occuring As available patient and family educated on Fall Prevention Program and Strategies. Assessment: 19:10 General: Appears ill, Behavior is unresponsive. Pain: Unable to use pain scale. FLACC ea scale score is 0 out of 10. Neuro: Level of Consciousness is unresponsive. Cardiovascular:. Cardiovascular: Rhythm is sinus rhythm. Respiratory: Airway is patent Respiratory effort is pt respirations assisted per vent, pt tolerating well. Respiratory pattern is symmetrical. Respiratory: Ventilator assessment: ET Tube: 7.5 at lip. Respiratory Rate: 16 FiO2: 100%. Derm: Skin is dry, Skin is pale, Skin temperature is cool. 21:13 Reassessment: Pt resting with eyes closed. ETT in place, respirations assisted. OG tube ea in place connected to intermittent suction. Pt skin is pale and cool. Pt has central line to left femoral, lines patent with medication infusing. Monterroso to BSD with clear yellow urine. 21:29 Reassessment: Report called to receiving nurse at [facility]. ea 22:16 Reassessment: Pt resting with eyes closed, ETT in place respiratory assisted. NG tube ea in place to low intermittent suction. Monterroso catheter in place to BSD. IV sites intact and patent, central line to left femoral with medications infusing. No erythema or edema noted at this time. 22:59 Reassessment: [facility] at facility for transfer. Report given to EMS. ea 23:01 General: Behavior is unresponsive. Pain: Unable to use pain scale. FLACC scale score is ea 0 out of 10. Neuro: Level of Consciousness is unresponsive. Cardiovascular: Rhythm is sinus rhythm. Respiratory: Airway via oral intubation Respiratory pattern is symmetrical, Ventilator assessment: ET Tube: 7.5 23 cm at lip. FiO2: 100%. HOB > 30 degrees. : Monterroso in place to gravity drainage. EENT: OG tube in place to low intermittent suction. . Derm: Skin is dry, Skin is pale, Skin temperature is warm. 23:12 Reassessment: Pt left ED via stretcher per EMS. Pt tolerating well. ea Vital Signs: 19:05 BP 65 / 31; Pulse 103; Resp 29; Pulse Ox 64% ; Weight 68.04 kg; jl7 19:15 BP 83 / 45; Pulse 93; Resp 31; Pulse Ox 81% on 100% FiO2 ETT vent; ea 20:49 BP 94 / 56; Pulse 108; Resp 27; Temp 99.2(C); Pulse Ox 92% on ETT vent; ea 21:10 BP 96 / 65; Pulse 105; Resp 23; Temp 99; Pulse Ox 94% on 100% FiO2 ETT vent; ea 21:20 BP 99 / 49; Pulse 103; Resp 23; Temp 99; Pulse Ox 93% on 100% FiO2 ETT vent; ea 21:33 BP 102 / 65; Pulse 102; Resp 23; Temp 99; Pulse Ox 94% on 100% FiO2 ETT vent; ea 22:05 BP 93 / 68; Pulse 98; Resp 24; Temp 99.1; Pulse Ox 89% on ETT vent; ea 22:19 BP 100 / 50; Pulse 95; Resp 23; Temp 99.2(C); Pulse Ox 89% on 100% FiO2 ETT vent; ea 22:58 BP 99 / 50; Pulse 93; Resp 23; Temp 99.5(C); Pulse Ox 90% on ETT vent; ea [place] Coma Score: 21:24 Eye Response: none(1). Verbal Response: none(1). Motor Response: none(1). Modifying ea Factors: Intubated. Total: 3. ED Course: 18:46 Assisted provider with intubation using 7.5 mm ETT via oral route. ET tube secured at iw 23cm at the teeth. Set up intubation tray. Intubated by Dustin Barillas MD Placement verified by CO2 detector w/ + color change, auscultating bilateral breath sounds. 18:49 Inserted saline lock: 22 gauge in right wrist, using aseptic technique. jl7 18:50 Inserted saline lock: 18 gauge in right EJ, using aseptic technique. ,using aseptic jl7 technique. Inserted by EDITH Ortiz. 18:51 Patient arrived in ED. ca1 18:52 Dustin Barillas MD is Attending Physician. rn 18:55 NGT: inserted 12 Fr. other OG verified placement of air over stomach, to intermittent jl7 suction. Patient tolerated unresponsive. 19:05 Triage completed. iw 19:08 Patient has correct armband on for positive identification. Placed in gown. Bed in low jl7 position. Call light in reach. Side rails up X2. quality assurance monitor final on. Pulse ox on. NIBP on. 19:15 Assisted provider with central line placement. Set up central line tray. Triple lumen ea line placed in left femoral. Line placed by Marco Blas MD Placement verified by blood return, Dressed with Tegaderm, Blood was collected. Patient tolerated well. 19:17 Arm band placed on right wrist. jl7 19:21 Attending Physician role handed off by Dustin Barillas MD bob 19:21 Marco Blas MD is Attending Physician. bob 19:40 Monterroso cath inserted, using sterile technique, 16 Fr., by ED staff, balloon inflated, to ea gravity drainage, urine specimen collected. 21:21 Luci Garcia RN is Primary Nurse. ea 22:59 Patient transferred, IV remains in place. ea Administered Medications: 18:50 Drug: Etomidate 20 mg Route: IVP; Site: right wrist; jl7 19:00 Follow up: Response: No adverse reaction ea 19:00 Drug: NS 0.9% (30 ml/kg) 30 ml/kg Route: IV; Rate: bolus; Site: right forearm; ea 21:27 Follow up: Response: No adverse reaction; IV Status: Completed infusion; IV Intake: ea 2000ml 19:15 Drug: Dopamine drip 5 mcg/kg/min - (DOPamine 400 mg, D5W 250 ml) Route: IV; Rate: ea calculated rate; Site: right forearm; 22:22 Follow up: Response: No adverse reaction; IV Status: Infusion continued upon transfer ea 19:24 Drug: Decadron - Dexamethasone 10 mg Route: IVP; Site: right antecubital; ll2 19:30 Follow up: Response: No adverse reaction ea 19:25 Drug: Zosyn 3.375 grams Route: IVPB; Infused Over: 60 mins; Site: right forearm; ea 20:25 Follow up: Response: No adverse reaction; IV Status: Completed infusion ea 22:15 Drug: NS 0.9% 1000 ml Route: IV; Rate: 125 ml/hr; Site: left femoral; ea 22:58 Follow up: Response: No adverse reaction; IV Status: Infusion continued upon transfer ea 22:20 Not Given (Other Intervention Used): Levophed (4 mg/250 mL D5W 4 mcg/min IV at ea calculated rate Per protocol; (final concentration is 16 microgram/mL) 22:58 Not Given (Hemodynamic Parameters): Mannitol 25% 0.5 g/kg IV at per protocol once; ea Administer over 2-6 hours Intake: 21:27 IV: 2000ml; Total: 2000ml. ea Output: 22:22 Urine: 800ml (Monterroso); Total: 800ml. ea 22:40 Urine: 400ml (Monterroso); Total: 1200ml. ea Outcome: 21:02 ER care complete, transfer ordered by . bob 21:50 Instructed on family instructed on need for transfer ea 23:00 Transferred by ground EMS to [facility], Transfer form completed. ea 23:00 Condition: stable ea 23:13 Patient left the ED. ea Signatures: Marco Blas MD MD cha Williams, Irene, RN Dustin Quispe MD MD rn Leal, Jahala, RN RN jl7 Luci Garcia RN RN ea Acob, Cheryl, RN RN Liberty Mo RN RN ll2
--- NOTE | 2020-04-09 21:03 | EDPHYS ---
Physician Documentation [facility] Name: Grace Sarmiento Age: 44 yrs Sex: Female : 1975 Arrival Date: 04/09/2020 Time: 18:51 Bed 3 Private MD: Marco Dwyer HPI: 04/09 18:56 This 44 yrs old Female presents to ER via Unassigned with complaints of AMS. rn 18:56 The patient presents with decreased responsiveness. Onset: The symptoms/episode rn began/occurred today. Possible causes: unknown. Current symptoms: In the emergency department the patient's symptoms have worsened. The patient has experienced similar episodes in the past. The patient has been recently seen by a physician:. Sister reports known brain tumors, 7-8, just had gamma knife surgery at [facility], is on steroids for brain swelling, states worsening responsiveness since surgery, worse today, told by her doctors to continue to feed her, they fed her her meds and food/liquids, are concerned since not responsive they fed her lungs, turned blue, called 911, EMS reports O2 50%, basic crew so unable to intubate. Unresponsive to painful stimuli. . 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 LMP N/A - Post-menopause jl7 Historical: - Allergies: 19:05 Iodine; iw 19:05 PENICILLINS; iw - Home Meds: 22:04 clonazepam 0.5 mg Oral tab 1 tab 2 times per day [Active]; levetiracetam 1,000 mg Oral ea tab .5 tab every 12 hours [Active]; lamotrigine 200 mg Oral tab 2 tabs 2 times per day [Active]; sertraline 100 mg Oral tab 1 tab once daily [Active]; Vitamin D2 50,000 unit Oral cap 1 cap once wkly [Active]; levothyroxine 125 mcg oral tab 1 tab once daily [Active]; dexamethasone 1 mg Oral tab [Active]; - PMHx: 19:05 BLIND; HARD OF HEARING; Hypothyroidism; Seizures; TUMORS ON BRAIN X 7; iw - PSHx: 19:05 PEG TUBE; BRAIN TUMOR REMOVED; iw - Immunization history:: Adult Immunizations unknown. - Family history:: not pertinent. - Social history:: Smoking status: unknown. - Hospitalizations: : Patient was recently seen at. - History obtained from: sister. ROS: 18:56 Unable to obtain ROS due to comatose state. rn Exam: 18:56 Constitutional: GCS 3 Head/Face: + ecchymosis left periorbital region Eyes: Left eye rn proptotic ENT: Dry MM with foodstuff in mouth Cardiovascular: Tachycardic, regular Respiratory: + grunting respirations with bagging Abdomen/GI: soft, slightly distended Skin: Cool extremities MS/ Extremity: Pale extremities, cool to touch Neuro: GCS 3 Vital Signs: 19:05 BP 65 / 31; Pulse 103; Resp 29; Pulse Ox 64% ; Weight 68.04 kg; jl7 19:15 BP 83 / 45; Pulse 93; Resp 31; Pulse Ox 81% on 100% FiO2 ETT vent; ea 20:49 BP 94 / 56; Pulse 108; Resp 27; Temp 99.2(C); Pulse Ox 92% on ETT vent; ea 21:10 BP 96 / 65; Pulse 105; Resp 23; Temp 99; Pulse Ox 94% on 100% FiO2 ETT vent; ea 21:20 BP 99 / 49; Pulse 103; Resp 23; Temp 99; Pulse Ox 93% on 100% FiO2 ETT vent; ea 21:33 BP 102 / 65; Pulse 102; Resp 23; Temp 99; Pulse Ox 94% on 100% FiO2 ETT vent; ea 22:05 BP 93 / 68; Pulse 98; Resp 24; Temp 99.1; Pulse Ox 89% on ETT vent; ea 22:19 BP 100 / 50; Pulse 95; Resp 23; Temp 99.2(C); Pulse Ox 89% on 100% FiO2 ETT vent; ea 22:58 BP 99 / 50; Pulse 93; Resp 23; Temp 99.5(C); Pulse Ox 90% on ETT vent; ea [place] Coma Score: 21:24 Eye Response: none(1). Verbal Response: none(1). Motor Response: none(1). Modifying ea Factors: Intubated. Total: 3. Procedures: 18:56 Intubation: Ventilated with 100% NRB prior to procedure. O2 saturation prior to ip attorney was 50 %. Intubated orally using # 4 Niurka blade with 7.5 mm ETT. was successful on first attempt. Cricoid pressure applied during procedure. Tube secured with ETT pichardo at right side of mouth measured 23 cm at teeth. Placement verified by auscultating bilateral breath sounds, O2 saturation after procedure was 60 %. Patient tolerated well. 19:30 Central Line: the site was prepped with Betadine, in sterile fashion, a triple lumen snw catheter was inserted, in the left femoral vein, in 3 attempts. placement was verified, by blood return, the site was dressed with Tegaderm, the patient tolerated the procedure, poorly, Dopamine moved from peripheral line to distal port of central line upon completion. MDM: 18:52 Patient medically screened. rn 19:29 Patient medically screened. bob 21:04 Differential Diagnosis: CVA, electrolyte abnormality, intracranial bleed, pneumonia, bob seizure, sepsis, volume depletion. Data reviewed: vital signs, nurses notes, lab test result(s), EKG, radiologic studies, CT scan, plain films. Data interpreted: monitoring tech: rate is 108 beats/min, rhythm is regular, Pulse oximetry: on room air is 60 %. Test interpretation: by ED physician or midlevel provider: ECG, plain radiologic studies. Counseling: I had a detailed discussion with the patient and/or guardian regarding: the historical points, exam findings, and any diagnostic results supporting the discharge/admit diagnosis, lab results, radiology results, the need to transfer to another facility, for higher level of care, [facility] does not immediately have the required specialist. 04/09 18:53 Order name: CBC with Diff rn 04/09 18:53 Order name: Basic Metabolic Panel rn 04/09 18:53 Order name: Protime (+inr) rn 04/09 18:53 Order name: Ptt, Activated rn 04/09 18:53 Order name: Blood Culture Adult (2) rn 04/09 19:03 Order name: Glucose, Ancillary Testing; Complete Time: 21:15 EDMS 04/09 19:28 Order name: Basic Metabolic Panel; Complete Time: 22:09 EDMS 04/09 19:31 Order name: Amylase, Serum [facility] 04/09 19:31 Order name: Ckmb [facility] 04/09 19:31 Order name: CPK [facility] 04/09 19:31 Order name: Lactate [facility] 04/09 19:31 Order name: LFT's [facility] 04/09 19:31 Order name: Lipase [facility] 04/09 19:31 Order name: Procalcitonin [facility] 04/09 19:31 Order name: Troponin (emerg Dept Use Only) [facility] 04/09 19:31 Order name: Urine Microscopic Only [facility] 04/09 19:40 Order name: Influenza Screen (A ; Complete Time: 21:15 [facility] 04/09 19:49 Order name: CBC with Automated Diff; Complete Time: 22:09 [facility] 04/09 20:15 Order name: SARS-COV-2 RT PCR; Complete Time: 21:15 [facility] 04/09 20:19 Order name: Urine --Ancillary (enter results) [facility] 04/09 20:19 Order name: Urine Dipstick--Ancillary (enter results) [facility] 04/09 20:31 Order name: Urine Microscopic Only; Complete Time: 21:15 [facility] 04/09 20:31 Order name: Urine --Ancillary; Complete Time: 21:15 [facility] 04/09 20:31 Order name: Urine Dipstick-Ancillary; Complete Time: 21:15 [facility] 04/09 20:46 Order name: Lactate; Complete Time: 21:15 [facility] 04/09 21:22 Order name: CBC Smear Scan; Complete Time: 22:09 [facility] 04/09 21:22 Order name: Procalcitonin; Complete Time: 22:09 [facility] 04/09 21:45 Order name: Liver (Hepatic) Function; Complete Time: 22:09 [facility] 04/09 21:46 Order name: Creatine Phosphokinase; Complete Time: 22:09 [facility] 04/09 21:46 Order name: CKMB Creatine Kinase MB; Complete Time: 22:09 [facility] 04/09 18:53 Order name: CT Head Brain wo Cont 04/09 18:53 Order name: IV Start; Complete Time: 19:08 18:53 Order name: XRAY Chest (1 view) 04/09 19:31 Order name: Accucheck; Complete Time: 20:47 [facility] 04/09 19:31 Order name: Cardiac monitoring; Complete Time: 20:47 [facility] 04/09 19:31 Order name: EKG - Nurse/Tech; Complete Time: 20:47 [facility] 04/09 19:31 Order name: IV Saline Lock - Large Bore; Complete Time: 21:34 [facility] 04/09 19:31 Order name: Labs collected and sent; Complete Time: 20:47 [facility] 04/09 19:31 Order name: O2 Per Protocol; Complete Time: 20:47 [facility] 04/09 19:31 Order name: O2 Sat Monitoring; Complete Time: 20:47 [facility] 04/09 19:31 Order name: Urine Dipstick-Ancillary (obtain specimen); Complete Time: 20:48 [facility] 04/09 19:31 Order name: Monterroso; Complete Time: 20:46 [facility] 04/09 19:31 Order name: Central Line Kit; Complete Time: 20:46 [facility] 04/09 19:31 Order name: RAD; Complete Time: 21:15 EDMS 04/09 20:54 Order name: CT; Complete Time: 21:15 EDMS 04/09 21:46 Order name: Troponin (Emerg Dept Use Only); Complete Time: 22:09 EDMS 04/09 21:46 Order name: Amylase; Complete Time: 22:09 EDMS 04/09 21:46 Order name: Lipase; Complete Time: 22:09 EDMS Administered Medications: 18:50 Drug: Etomidate 20 mg Route: IVP; Site: right wrist; jl7 19:00 Follow up: Response: No adverse reaction ea 19:00 Drug: NS 0.9% (30 ml/kg) 30 ml/kg Route: IV; Rate: bolus; Site: right forearm; ea 21:27 Follow up: Response: No adverse reaction; IV Status: Completed infusion; IV Intake: ea 2000ml 19:15 Drug: Dopamine drip 5 mcg/kg/min - (DOPamine 400 mg, D5W 250 ml) Route: IV; Rate: ea calculated rate; Site: right forearm; 22:22 Follow up: Response: No adverse reaction; IV Status: Infusion continued upon transfer ea 19:24 Drug: Decadron - Dexamethasone 10 mg Route: IVP; Site: right antecubital; ll2 19:30 Follow up: Response: No adverse reaction ea 19:25 Drug: Zosyn 3.375 grams Route: IVPB; Infused Over: 60 mins; Site: right forearm; ea 20:25 Follow up: Response: No adverse reaction; IV Status: Completed infusion ea 22:15 Drug: NS 0.9% 1000 ml Route: IV; Rate: 125 ml/hr; Site: left femoral; ea 22:58 Follow up: Response: No adverse reaction; IV Status: Infusion continued upon transfer ea 22:20 Not Given (Other Intervention Used): Levophed (4 mg/250 mL D5W 4 mcg/min IV at ea calculated rate Per protocol; (final concentration is 16 microgram/mL) 22:58 Not Given (Hemodynamic Parameters): Mannitol 25% 0.5 g/kg IV at per protocol once; ea Administer over 2-6 hours Disposition: 22:08 Co-signature as Attending Physician, Marco Blas MD I agree with the assessment and bob plan of care. Disposition: 04/09/20 21:02 [facility]. Diagnosis are Pneumonia, unspecified organism - bilateral aspiration, Cerebral edema - 7mm right to lrft shift. - Reason for transfer: Higher level of care. - Accepting physician is to neurosurgery. - Condition is Critical. - Problem is an ongoing problem. - Symptoms have improved. Signatures: Dispatcher [employer] EDMS Marco Blas MD MD cha Waters, Shelly, RECRUITING ASSOCIATE-C RECRUITING ASSOCIATE-Csnw Lurdes Guerrero, Dustin Quispe RN, MD MD rn Leal, Jahala RN RN jl7 Luci Garcia RN RN ea L[place]combe, Lacie, RN RN ll2 Corrections: (The following items were deleted from the chart) 23:13 21:02 04/09/2020 21:02 Transfer ordered to [facility]. Diagnosis is ea Pneumonia, unspecified organism - bilateral aspiration; Cerebral edema - 7mm right to lrft shift. Reason for transfer: Higher level of care. Accepting physician is to neurosurgery. Condition is Critical. Problem is an ongoing problem. Symptoms have improved. bob
[2020-04-09 21:21] LABS: Blood Morphology Comment NOT SEEN (NOT SEEN); Platelet Estimate ADEQ; White Blood Cell Scan OK (OK)
[2020-04-09 21:43] LABS: ALT/SGPT 20 U/L (12-78); AST/SGOT 60 U/L (15-37); Albumin 3.2 g/dL (3.4-5.0); Alkaline Phosphatase 63 U/L (45-117); Amylase 53 U/L (25-115); Bilirubin Direct 0.3 mg/dL (0-0.2); Bilirubin Total 0.8 mg/dL (0.2-1.0); Lipase 73 U/L (73-393); Protein, Total 6.7 g/dL (6.4-8.2); Troponin (Emerg Dept Use Only) < 0.02 ng/mL (0.0-0.045)
[2020-04-09 21:44] LABS: Creatine Phosphokinase 1263 U/L (26-192)
[2020-04-09] MEDS ORDERED: NA CHLORIDE 0.9% 1,000 ML ONE (22:22)
--- NOTE | 2020-04-11 11:49 | EKG ---
Test Date: 2020-04-09 Test Time: 18:56:09 [employer] Sales Manager: POORNIMA MEASUREMENT RESULTS: Intervals: Rate: 103 [place]: 126 QRSD: 72 QT: 324 QTc: 424 [place]: P: 81 [place]: 126 QRS: 75 T: 34 INTERPRETIVE STATEMENTS: Sinus tachycardia ST & T wave abnormality, consider inferior ischemia ST & T wave abnormality, consider anterior ischemia Abnormal ECG Compared to ECG 12/05/2019 15:49:21 ST (T wave) deviation now present Possible ischemia now present Sinus rhythm no longer present Electronically Signed On 04-11-20 11:40:54 COVER MARKER by Wade Sanders
[2020-04-13 03:27] VITALS: BP 99/50; TEMP 99.5; O2SAT 90
== END 2020-04-09 23:13 | disposition short-term general hospital (02) ==
LOC: ER 18:41
PROC: 06HN33Z Insertion of Infusion Device into Left Femoral Vein, Percutaneous Approach (ICD-10-PCS; principal; 2020-04-09)
DX: J69.0 Pneumonitis due to inhalation of food and vomit (principal); G93.6 Cerebral edema; Z20.828 Contact with and (suspected) exposure to other viral communicable diseases; Z86.011 Personal history of benign neoplasm of the brain; E03.9 Hypothyroidism, unspecified
CPT/HCPCS: 93005; 87040 ×2; 85025; 80048; 82150; 82550; 81025; 82947; 80076; 83605; 84484; 82553; 83690; 84145; 87804 ×2; 70450; 71045; 94002; 94003; 31500; 51702; 99291; 99292; 36556; U0003; J0330; J2250; J2543; J1100; J1265; J7030 ×2; 81003; 81015

== ENCOUNTER 2020-05-20 10:54 | Emergency (ER) | payer OTHER ==
--- OUTSIDE RECORDS SUMMARY | 2020-05-20 11:01 | XMS REPORT | Summary of Care ---
:1975 Author Organization [facility] Address [address] [place] [id number]- Encounter [facility] Encntr_stanley(FIN) [id number] Date(s): 04/10/[address] Professional Services provided by [facility] [place] [address]- Discharge Disposition: ED Admitted Attending Physician: Raven Lara MD Admitting Physician: Josie Mahoney MD Referring Physician: Marco Blas MD Vital Signs Most recent to oldest 1 2 3 [Reference Range]: Height 157.48 cm 157.48 cm 157.48 cm (04/16/20 12:12 AM) (04/15/20 7:38 PM) (04/15/20 2:47 PM) Current Weight 68.636 kg 68.182 kg (04/15/20 4:36 AM) (04/14/20 5:04 AM) Blood Pressure 97/61 mmHg 119/62 mmHg 87/53 mmHg [90-140/60-90 mmHg] (04/15/20 9:15 AM) (04/15/20 9:00 AM) *LOW* (04/15/20 8:00 A M) Respiratory Rate [14-20 26 BRMIN 23 BRMIN 24 BRMIN BRMIN] *HI* *HI* *HI* (04/16/20 1:00 AM) (04/16/20 12:30 AM) (04/16/20 12:00 AM) Peripheral Pulse Rate 89 bpm 91 bpm [60-100 bpm] (04/10/20 12:41 AM) (04/10/20 12:40 AM) Weight 70 kg (04/10/20 9:18 AM) Body Mass Index 28.23 m2 (04/10/20 9:18 AM) Problem List Condition Effective Dates Status [...] penicillins Active iodine topical Active Medications acetaminophen 650 mg, 2 tab, Route: PO, Drug form: TAB, Q4H, Dosing Weight 79.545, kg, PRN For Temp > 100.4 F, Start date: 04/10/20 7:46:00 CLERK CARRIER, Duration: 30 day, Stop date: 05/10/20 7:45:00 CLERK CARRIER, 0 Notes: Do not exceed 4 gm/day. (Same as: Tylenol) Start Date: 04/10/20 Stop Date: 05/10/20 Status: OrderedANES flumazenil 0.2 mg, 2 mL, Route: IVP, Drug form: INJ, PRN, Dosing Weight 70, kg, PRN Benzodiazepine Reversal, Initial dose, Start date: 04/13/20 11:03:00 CLERK CARRIER, Stop date: 04/14/20 0:00:00 CLERK CARRIER, 0 Notes: (Same as: Romazicon) Start Date: 04/13/20 Stop Date: 04/13/20 Status: DiscontinuedANES HYDROmorphone 0.5 mg, 0.25 mL, Route: IVP, Drug form: INJ, Q5Min, Dosing Weight 70, kg, PRN Pain Score 7-10, Startdate: 04/13/20 11:03:00 CLERK CARRIER, Duration: 4 doses or times, Stop date: 04/14/20 0:00:00 CLERK CARRIER, 0 Notes: Same as Dilaudid Start Date: 04/13/20 Stop Date: 04/13/20 Status: DiscontinuedANES naloxone 0.4 mg, 1 mL, Route: IVP, Drug form: INJ, Q2MIN, Dosing Weight 70, kg, PRN Narcotic Reversal, Start date: 04/13/20 11:03:00 CLERK CARRIER, Duration: 8 doses or times, Stop date: 04/14/20 0:00:00 CLERK CARRIER, 0 Notes: Same as Narcan Start Date: 04/13/20 Stop Date: 04/13/20 Status: DiscontinuedANES ondansetron 4 mg, 2 mL, Route: IVP, Drug form: INJ, ONCE, Dosing Weight 70, kg, PRN Nausea & Vomiting, Startdate: 04/13/20 11:03:00 CLERK CARRIER, 0 Notes: (Same as: Zofran) MEDICATION WASTE Product Size: 4 mgProduct Wasted: ___ mg Start Date: 04/13/20 Stop Date: 04/13/20 Status: Discontinuedaspirin 325 mg, 1 tab, Route: PO, Drug form: TAB, ONCE, Dosing Weight 70, kg, Start date: 04/11/20 10:34:00 CLERK CARRIER, Stop date: 04/11/20 10:34:00 CLERK CARRIER, 0 Notes: Take with food. Start Date: 04/11/20 Stop Date: 04/11/20 Status: Completedaspirin 81 mg tablet, enteric coated 81 mg, 1 tab, Route: PO, Drug form: ECTAB, Daily, Dosing Weight 70, kg, Start date: 04/12/20 9:00:00CST, Duration: 30 day, Stop date: 05/11/20 9:00:00 CLERK CARRIER, 0 Notes: Do not crush or chew.(Same As: Ecotrin) Start Date: 04/12/20 Stop Date: 04/12/20 Status: Discontinuedaspirin 81 mg tablet, enteric coated 81 mg, 1 tab, Route: PO, Drug form: CHEWTAB, Daily, Dosing Weight 70, kg, Start date: 04/13/20 9:00:00 CLERK CARRIER, Duration: 30 day, Stop date: 05/12/20 9:00:00 CLERK CARRIER, 0 Notes: Take with food. Start Date: 04/13/20 Stop Date: 05/12/20 Status: OrderedAtivan 2 mg, 1 mL, Route: IV, Drug form: INJ, Q10Min, Dosing Weight 70, kg, PRN Seizure, Start date: 04/14/20 1:50:00 CLERK CARRIER, Duration: 3 doses or times, Stop date: Limited # of times, 0 Notes: (Same as: Ativan) Start Date: 04/14/20 Status: OrderedAtivan 4 mg, 2 mL, Route: IVP, Drug form: INJ, ONCE, Dosing Weight 70, kg, PRN Anxiety, Start date: 04/13/20 20:48:00 CLERK CARRIER, 0 Notes: (Same as: Ativan) Start Date: 04/13/20 Stop Date: 04/14/20 Status: Completedatorvastatin 40 mg, 1 tab, Route: PO, Drug form: TAB, Bedtime, Dosing Weight 70, kg, Start date: 04/11/20 21:00:00 CLERK CARRIER, Duration: 30 day, Stop date: 05/10/20 21:00:00 CLERK CARRIER, 0 Notes: (Same as: Lipitor) Start Date: 04/11/20 Stop Date: 05/10/20 Status: OrderedceFAZolin 2 gm, 20 mL, Route: IVP, Drug form: SOLN, ABXQ8H, Dosing Weight 70, kg, Start date: 04/13/20 10:00:00 CLERK CARRIER, Duration: 4 day, Stop date: 04/17/20 2:00:00 CLERK CARRIER, ABX Indication: Pneumonia, 0 Notes: (Same as Ancef) Start Date: 04/13/20 Stop Date: 04/15/20 Status: Discontinuedcefepime 2 gm, Route: IVP, ONCE, Dosing Weight 79.545, kg, Priority: STAT, Start date: 04/10/20 3:59:00 CLERK CARRIER, Stop date: 04/10/20 3:59:00 CLERK CARRIER, ABX Indication: Pneumonia Start Date: 04/10/20 Stop Date: 04/10/20 Status: Completedcefepime + sterile water 10 mL 1 gm, Route: IVP, ABXQ6H, Dosing Weight 79.545, kg, Start date: 04/10/20 12:00:00 CLERK CARRIER, Duration: 7 day, Stop date: 04/17/20 6:00:00 CLERK CARRIER, ABX Indication: Pneumonia, 0 Notes: (Same As: Maxipime) MEDICATION WASTE Product Size: 1000 mgProduct Wasted: ___ mg Start Date: 04/10/20 Stop Date: 04/12/20 Status: DiscontinuedcefTRIAXone + sterile water 10 mL 1 gm, Route: IVPB, [id number], Dosing Weight 70, kg, Start date: 04/12/20 10:00:00 CLERK CARRIER, Duration: 3 day, Stop date: 04/14/20 10:00:00 CLERK CARRIER, ABX Indication: ED - Suspected Sepsis, 0 Notes: (Same As: Rocephin).Use with 100 mL NS and infuse over 30 min MEDICATION WASTE Product Size: 1000 mgProduct Wasted: ___ mg Start Date: 04/12/20 Stop Date: 04/12/20 Status: Discontinuedchlorhexidine topical 0.12% liquid 15 mL, Route: Swab Mouth, Q12H, Drug form: LIQ, Start date: 04/15/20 9:00:00 CLERK CARRIER, Duration: 30 day, Stop date: 05/14/20 21:00:00 CLERK CARRIER, 0 Notes: (Same As: Peridex) Start Date: 04/15/20 Stop Date: 05/14/20 Status: Orderedchlorhexidine topical 0.12% liquid 15 mL, Route: Swab Mouth, PRN, Drug form: LIQ, PRN Other -See Comment, Start date: 04/14/20 21:39:00CST, Duration: 30 day, Stop date: 05/14/20 21:38:00 CLERK CARRIER, 0 Notes: (Same As: Peridex) Start Date: 04/14/20 Stop Date: 05/14/20 Status: Orderedchlorhexidine topical 0.12% liquid 15 mL, Route: Swab Mouth, Q12H, Drug form: LIQ, Start date: 04/10/20 9:00:00 CLERK CARRIER, Duration: 30 day, Stop date: 05/09/20 21:00:00 CLERK CARRIER, 0 Notes: (Same As: Peridex) Start Date: 04/10/20 Stop Date: 04/13/20 Status: Discontinuedchlorhexidine topical 0.12% liquid 15 mL, Route: Swab Mouth, PRN, Drug form: LIQ, PRN Other -See Comment, Start date: 04/10/20 7:51:00 CLERK CARRIER, Duration: 30 day, Stop date: 05/10/20 7:50:00 CLERK CARRIER, 0 Notes: (Same As: Peridex) Start Date: 04/10/20 Stop Date: 04/13/20 Status: DiscontinuedCleocin HCl 600 mg, 4 mL, Route: IVPB, Drug form: INJ, ABXQ8H, Start date: 04/14/20 6:00:00 CLERK CARRIER, Duration: 7 day, Stop date: 04/20/20 22:00:00 CLERK CARRIER, ABX Indication: Bacteremia, 0 Notes: (clindamycin 150 mg/1 ml (600 mg/4 ml VL) INJ) (Same As: Cleocin) Start Date: 04/14/20 Stop Date: 04/14/20 Status: Discontinuedclindamycin 300 mg, Route: IVPB, ABXQ8H, Dosing Weight 70, kg, Start date: 04/14/20 5:00:00 CLERK CARRIER, Duration: 7 day, Stop date: 04/20/20 21:00:00 CLERK CARRIER, ABX Indication: Bacteremia Start Date: 04/14/20 Stop Date: 04/14/20 Status: Discontinueddexamethasone 10 mg, Route: IVP, ONCE, Dosing Weight 79.545, kg, Priority: STAT, Start date: 04/10/20 2:51:00 CLERK CARRIER,Stop date: 04/10/20 2:51:00 CLERK CARRIER Start Date: 04/10/20 Stop Date: 04/10/20 Status: Completeddexamethasone 6 mg, 1.5 mL, Route: IV, Drug form: INJ, Q6H, Dosing Weight 79.545, kg, Start date: 04/10/20 6:00:00CST, Duration: 30 day, Stop date: 05/10/20 0:00:00 CLERK CARRIER, 0 Notes: Concentration: 4mg/ml Start Date: 04/10/20 Stop Date: 04/12/20 Status: Discontinueddexamethasone 4 mg, 1 mL, Route: IV, Drug form: INJ, TID, Dosing Weight 79.545, kg, Start date: 04/14/20 13:00:00 CLERK CARRIER, Duration: 30 day, Stop date: 05/14/20 9:00:00 CLERK CARRIER, 0 Notes: Concentration: 4mg/ml Start Date: 04/14/20 Stop Date: 04/14/20 Status: Discontinueddexamethasone 4 mg, 1 tab, Route: PO, Drug form: TAB, TID, Dosing Weight 79.545, kg, Start date: 04/14/20 13:00:00CST, Duration: 30 day, Stop date: 05/14/20 9:00:00 CLERK CARRIER, 0 Notes: Give with food.(Same As: Decadron) Start Date: 04/14/20 Stop Date: 04/14/20 Status: Discontinueddexamethasone 6 mg, 1 tab, Route: PO, Drug form: TAB, Q8H, Dosing Weight 79.545, kg, Start date: 04/14/20 16:00:00CST, Stop date: 05/14/20 4:00:00 CLERK CARRIER, 0 Notes: Give with food. Start Date: 04/14/20 Stop Date: 05/14/20 Status: Ordereddexamethasone 4 mg, 1 mL, Route: IV, Drug form: INJ, Q6H, Dosing Weight 79.545, kg, Start date: 04/12/20 12:00:00 CLERK CARRIER, Duration: 30 day, Stop date: 05/12/20 6:00:00 CLERK CARRIER, 0 Notes: Concentration: 4mg/ml Start Date: 04/12/20 Stop Date: 04/14/20 Status: DiscontinuedDextrose 50% in Water IV 12.5 gm, 25 mL, Route: IVP, Drug Form: INJ, Dosing Weight 70, kg, PRN, PRN Blood Glucose Results, Start date: 04/10/20 10:45:00 CLERK CARRIER, Duration: 30 day, Stop date: 05/10/20 10:44:00 CLERK CARRIER, 0 Start Date: 04/10/20 Stop Date: 05/10/20 Status: OrderedDextrose 50% in Water IV 25 gm, 50 mL, Route: IVP, Drug Form: INJ, Dosing Weight 70, kg, PRN, PRN Blood Glucose Results, Start date: 04/10/20 10:45:00 CLERK CARRIER, Duration: 30 day, Stop date: 05/10/20 10:44:00 CLERK CARRIER, 0 Start Date: 04/10/20 Stop Date: 05/10/20 Status: Ordereddocusate 100 mg, 10 mL, Route: PO, Drug form: LIQ, Q12H, Dosing Weight 79.545, kg, Start date: 04/10/20 9:00:00 CLERK CARRIER, Duration: 30 day, Stop date: 05/09/20 21:00:00 CLERK CARRIER, 0 Notes: (Same as: Colace) Start Date: 04/10/20 Stop Date: 05/09/20 Status: OrderedDOPamine 400 mg in D5W 250 mL (Titrate.) IV 400 mg 400 mg, 250 mL, Rate: Titrate, Start Dose: 5 microgram/kg/min, Titration: 2.5 microgram/kg/min every15 minutes, Goal(s): MAP >= 65 mmHg, Max Dose: 20 microgram/kg/min, Route: IV, Dosing Weight 70 kg, Total Volume: 250, Start date: 04/14/20 20:17:00 C... Notes: (Same as: Intropin) Administer by either central venous catheter or peripherally-inserted central catheter (PICC) line. Final conc = 1.6 mg/ml. Premix solution. Start Date: 04/14/20 Stop Date: 05/14/20 Status: OrderedDuoNeb inhalation solution 3 ml, Route: NEB, Drug Form: SOLN, Dosing Weight 70, kg, PRN, PRN Respiratory Pathway, Start date: 04/13/20 20:55:00 CLERK CARRIER, Duration: 30 day, Stop date: 05/13/20 20:54:00 CLERK CARRIER, 0 Notes: (Same as: Duoneb) Start Date: 04/13/20 Stop Date: 05/13/20 Status: OrderedDuoNeb inhalation solution 3 mL, Route: NEB, Drug Form: SOLN, Dosing Weight 70, kg, RQ12H, Start date: 04/13/20 20:55:00 CLERK CARRIER, Duration: 30 day, Stop date: 05/13/20 16:00:00 CLERK CARRIER, 0 Notes: (Same as: Duoneb) Start Date: 04/13/20 Stop Date: 04/15/20 Status: Discontinuedetomidate 10 mg, Route: IV, ONCE, Dosing Weight 70, kg, Start date: 04/14/20 20:22:00 CLERK CARRIER, Stop date: 04/14/2020:22:00 CLERK CARRIER Start Date: 04/14/20 Stop Date: 04/14/20 Status: Completedfamotidine 20 mg, 2 mL, Route: IVP, Drug form: INJ, BID, Dosing Weight 79.545, kg, Priority: STAT, Start date: 04/10/20 2:52:00 CLERK CARRIER, Duration: 30 day, Stop date: 05/09/20 17:00:00 CLERK CARRIER, 0 Notes: (Same as: Pepcid)Can be dilute in 5-10cc NS IVP: Slow IV push over at least 2 minutes. Start Date: 04/10/20 Stop Date: 04/10/20 Status: Discontinuedfamotidine 20 mg, 2 mL, Route: IVP, Drug form: INJ, Q12H, Dosing Weight 79.545, kg, Start date: 04/10/20 17:00:00 CLERK CARRIER, Duration: 30 day, Stop date: 05/10/20 9:00:00 CLERK CARRIER, 0 Notes: (Same as: Pepcid)Can be dilute in 5-10cc NS IVP: Slow IV push over at least 2 minutes. Start Date: 04/10/20 Stop Date: 04/11/20 Status: Discontinuedfamotidine 20 mg, 1 tab, Route: PO, Drug form: TAB, Q12H, Dosing Weight 70, kg, Start date: 04/11/20 21:00:00 CLERK CARRIER, Duration: 30 day, Stop date: 05/11/20 9:00:00 CLERK CARRIER, 0 Notes: (Same as: Pepcid) Start Date: 04/11/20 Stop Date: 04/13/20 Status: DiscontinuedfentaNYL 25 microgram, 0.5 mL, Route: IV, Drug form: INJ, Q3H, Dosing Weight 70, kg, PRN Agitation, Start date: 04/11/20 7:55:00 CLERK CARRIER, Duration: 30 day, Stop date: 05/11/20 7:54:00 CLERK CARRIER, 0 Notes: (Same as: Sublimaze) Preservative free. Start Date: 04/11/20 Stop Date: 04/13/20 Status: DiscontinuedfentaNYL 100 microgram, Route: IV, ONCE, Dosing Weight 70, kg, Start date: 04/14/20 20:22:00 CLERK CARRIER, Stop date: 04/14/20 20:22:00 CLERK CARRIER Start Date: 04/14/20 Stop Date: 04/14/20 Status: CompletedfentaNYL 50 microgram, Route: IV, ONCE, Dosing Weight 70, kg, Start date: 04/14/20 20:44:00 CLERK CARRIER, Stop date: 04/14/20 20:44:00 CLERK CARRIER Start Date: 04/14/20 Stop Date: 04/14/20 Status: CompletedfentaNYL 25 microgram, Route: IV, Q6H, Dosing Weight 70, kg, PRN Agitation, Start date: 04/11/20 7:43:00 CLERK CARRIER,Duration: 30 day, Stop date: 05/11/20 7:42:00 CLERK CARRIER Start Date: 04/11/20 Stop Date: 04/11/20 Status: DiscontinuedfentaNYL 25 microgram, Route: IV, Q6H, Dosing Weight 70, kg, PRN Pain Score 4-6, Start date: 04/11/20 7:43:00CST, Duration: 30 day, Stop date: 05/11/20 7:42:00 CLERK CARRIER Start Date: 04/11/20 Stop Date: 04/11/20 Status: DiscontinuedfentaNYL (ANES) Route: IV, Drug form: INJ, ONCE, Stop date: 04/13/20 10:53:00 CLERK CARRIER Start Date: 04/13/20 Stop Date: 04/13/20 Status: CompletedfentaNYL 1000 microgram in 20 mL NS (Titrate.) IV 1,000 microgram 1,000 microgram, 20 mL, Rate: Titrate, Start Dose: 50 microgram/hr, Titration: 25 microgram/hour every 15 minutes, Goal(s): RASS -1, Max Dose: 300 microgram/hr, Route: IV, Dosing Weight 70 kg, Total Volume: 20, Start date: 04/14/20 21:29:00 CLERK CARRIER, Durat... Start Date: 04/14/20 Stop Date: 05/14/20 Status: OrderedfentaNYL 1000 microgram in 20 mL NS (Titrate.) IV 1,000 microgram 1,000 microgram, 20 mL, Rate: Titrate, Start Dose: 50 microgram/hr, Titration: 25 microgram/hour every 15 minutes, Goal(s): hr, Max Dose: 300 microgram/hr, Route: IV, Dosing Weight 79.545 kg, Total Volume: 20, Start date: 04/10/20 0:49:00 CLERK CARRIER, Duratio... Start Date: 04/10/20 Stop Date: 04/11/20 Status: DiscontinuedFlagyl 500 mg, 100 mL, Route: IVPB, Drug form: INJ, ABXQ8H, Dosing Weight 79.545, kg, Start date: 04/10/20 14:00:00 CLERK CARRIER, Duration: 7 day, Stop date: 04/17/20 6:00:00 CLERK CARRIER, ABX Indication: Pneumonia, 0 Notes: (Same as: Flagyl) Avoid alcohol. Start Date: 04/10/20 Stop Date: 04/12/20 Status: Discontinuedglucagon 1 mg, Route: IM, Drug form: PDR/INJ, PRN, Dosing Weight 70, kg, PRN Blood Glucose Results, Start date: 04/10/20 10:45:00 CLERK CARRIER, Duration: 30 day, Stop date: 05/10/20 10:44:00 CLERK CARRIER, 0 Start Date: 04/10/20 Stop Date: 05/10/20 Status: OrderedHeparin 30 unit/kg Bolus (Heparin Dosing Weight) Route: IVP, PRN, 1,700 unit, 1.7 mL, Drug form: INJ, PRN, Heparin Protocol, Start date: 04/11/20 11:02:00 CLERK CARRIER Stop date: 05/11/20 11:01:00 CLERK CARRIER, 30 day, 0 Start Date: 04/11/20 Stop Date: 04/13/20 Status: Discontinuedheparin 5000 units/mL injectable solution 5,000 unit, 1 mL, Route: SUB-Q, Drug form: INJ, Q8H, Dosing Weight 70, kg, Start date: 04/13/20 16:00:00 CLERK CARRIER, Duration: 30 day, Stop date: 05/13/20 8:00:00 CLERK CARRIER, 0 Notes: porcine heparin Start Date: 04/13/20 Stop Date: 05/13/20 Status: OrderedHeparin 60 unit/kg Bolus (Heparin Dosing Weight) Route: IVP, PRN, 3,500 unit, 3.5 mL, Drug form: INJ, PRN, Heparin Protocol, Start date: 04/11/20 11:02:00 CLERK CARRIER Stop date: 05/11/20 11:01:00 CLERK CARRIER, 30 day, 0 Start Date: 04/11/20 Stop Date: 04/13/20 Status: Discontinuedheparin additive 25,000 unit [12 unit/kg/hr] + Premix Diluent Sodium Chloride 0.45% 500 mL 500 mL, Rate: 13.93 ml/hr, Infuse over: 35.9 hr, Route: IV, Dosing Weight 58.06 kg, Total Volume: 500 mL, Start date: 04/11/20 11:02:00 CLERK CARRIER, Duration: 30 day, Stop date: 05/11/20 11:01:00 CLERK CARRIER, 1.61, m2, 0 Notes: Total Concentration = 50 unit/ ml Total volume = 500 mlSend Med Request 2 hours prior to next bag Start Date: 04/11/20 Stop Date: 04/13/20 Status: Discontinuedinsulin lispro 3 unit, 0.03 mL, Route: SUB-Q, Drug form: SOLN, Sliding Scale, Dosing Weight 70, kg, PRN Blood Glucose Results, Start date: 04/10/20 10:45:00 CLERK CARRIER, Duration: 30 day, Stop date: 05/10/20 10:44:00 CLERK CARRIER, 0 Notes: (Same as: Humalog) Roll in palms of hands gently; Do not shake vigorously. WASTE: F/P - Black; E - Municipal Trash BinStable for 28 days at room temperature.Expires in days from Date Start Date: 04/10/20 Stop Date: 04/10/20 Status: Discontinuedinsulin lispro 6 unit, 0.06 mL, Route: SUB-Q, Drug form: SOLN, Sliding Scale, Dosing Weight 70, kg, PRN Blood Glucose Results, Start date: 04/10/20 10:45:00 CLERK CARRIER, Duration: 30 day, Stop date: 05/10/20 10:44:00 CLERK CARRIER, 0 Notes: (Same as: Humalog) Roll in palms of hands gently; Do not shake vigorously. WASTE: F/P - Black; E - [employer] Trash BinStable for 28 days at room temperature.Expires in days from Date Start Date: 04/10/20 Stop Date: 04/10/20 Status: Discontinuedinsulin lispro 9 unit, 0.09 mL, Route: SUB-Q, Drug form: SOLN, Sliding Scale, Dosing Weight 70, kg, PRN Blood Glucose Results, Start date: 04/10/20 10:45:00 CLERK CARRIER, Duration: 30 day, Stop date: 05/10/20 10:44:00 CLERK CARRIER, 0 Notes: (Same as: Humalog) Roll in palms of hands gently; Do not shake vigorously. WASTE: F/P - Black; E - [employer] Trash BinStable for 28 days at room temperature.Expires in days from Date Start Date: 04/10/20 Stop Date: 04/10/20 Status: DiscontinuedInsulin regular 4 unit, 0.04 mL, Route: SUB-Q, Drug form: SOLN, Sliding Scale, Dosing Weight 70, kg, PRN Blood Glucose Results, Start date: 04/10/20 15:10:00 CLERK CARRIER, Duration: 30 day, Stop date: 05/10/20 15:09:00 CLERK CARRIER, 0 Notes: (Same as: Humulin R) Roll in palms of hands gently; Do not shake vigorously. WASTE:F/P - Black; E - Municipal Trash BinStable for 31 days at room temperature Expires in days from Date Start Date: 04/10/20 Stop Date: 05/10/20 Status: OrderedInsulin regular 8 unit, 0.08 mL, Route: SUB-Q, Drug form: SOLN, Sliding Scale, Dosing Weight 70, kg, PRN Blood Glucose Results, Start date: 04/10/20 15:10:00 CLERK CARRIER, Duration: 30 day, Stop date: 05/10/20 15:09:00 CLERK CARRIER, 0 Notes: (Same as: Humulin R) Roll in palms of hands gently; Do not shake vigorously. WASTE:F/P - Black; E - Municipal Trash BinStable for 31 days at room temperature Expires in days from Date Start Date: 04/10/20 Stop Date: 05/10/20 Status: OrderedInsulin regular 12 unit, 0.12 mL, Route: SUB-Q, Drug form: SOLN, Sliding Scale, Dosing Weight 70, kg, PRN Blood Glucose Results, Start date: 04/10/20 15:10:00 CLERK CARRIER, Duration: 30 day, Stop date: 05/10/20 15:09:00 CLERK CARRIER, 0 Notes: (Same as: Humulin R) Roll in palms of hands gently; Do not shake vigorously. WASTE:F/P - Black; E - Municipal Trash BinStable for 31 days at room temperature Expires in days from Date Start Date: 04/10/20 Stop Date: 05/10/20 Status: OrderedIsolyte S PH-7.4 (Bolus) IV 1,000 mL, Infuse Over: 1 hr, Route: IV, Drug form: INJ, ONCE, Priority: STAT, Dosing Weight 79.545 kg, Start date: 04/10/20 0:49:00 CLERK CARRIER, Stop date: 04/10/20 0:49:00 CLERK CARRIER, Bolus Dose Start Date: 04/10/20 Stop Date: 04/10/20 Status: CompletedIsolyte S PH-7.4 (Bolus) IV 1,000 mL, Infuse Over: 1 hr, Route: IV, Drug form: INJ, ONCE, Priority: STAT, Dosing Weight 79.545 kg, Start date: 04/10/20 1:22:00 CLERK CARRIER, Stop date: 04/10/20 1:22:00 CLERK CARRIER, Bolus Dose Start Date: 04/10/20 Stop Date: 04/10/20 Status: CompletedKeppra 500 mg, Route: PO, ONCE, Dosing Weight 70, kg, Start date: 04/14/20 2:32:00 CLERK CARRIER, Stop date: 202:32:00 CLERK CARRIER Start Date: 04/14/20 Stop Date: 04/14/20 Status: CompletedLactated Ringers (Bolus) IV 250 mL, 250 ml/hr, Infuse Over: 1 hr, Route: IV, 250, Drug form: INJ, ONCE, Priority: STAT, Dosing Weight 70 kg, Start date: 04/10/20 10:41:00 CLERK CARRIER, Stop date: 04/10/20 10:41:00 CLERK CARRIER, 0 Start Date: 04/10/20 Stop Date: 04/10/20 Status: CompletedLactated Ringers (Bolus) IV 500 mL, 500 ml/hr, Infuse Over: 1 hr, Route: IV, 500, Drug form: INJ, ONCE, Priority: STAT, Dosing Weight 70 kg, Start date: 04/15/20 0:38:00 CLERK CARRIER, Stop date: 04/15/20 0:38:00 CLERK CARRIER, 0 Start Date: 04/15/20 Stop Date: 04/15/20 Status: CompletedLactated Ringers (Bolus) IV 250 mL, 250 ml/hr, Infuse Over: 1 hr, Route: IV, 250, Drug form: INJ, ONCE, Priority: STAT, Dosing Weight 70 kg, Start date: 04/11/20 13:11:00 CLERK CARRIER, Stop date: 04/11/20 13:11:00 CLERK CARRIER, 0 Start Date: 04/11/20 Stop Date: 04/11/20 Status: DiscontinuedLactated Ringers (Bolus) IV 500 mL, 500 ml/hr, Infuse Over: 1 hr, Route: IV, 500, Drug form: INJ, ONCE, Priority: STAT, Dosing Weight 70 kg, Start date: 04/10/20 16:28:00 CLERK CARRIER, Stop date: 04/10/20 16:28:00 CLERK CARRIER, 0 Start Date: 04/10/20 Stop Date: 04/10/20 Status: CompletedLactated Ringers (Bolus) IV 250 mL, 250 ml/hr, Infuse Over: 1 hr, Route: IV, ONCE, Priority: STAT, Dosing Weight 70 kg, Start date: 04/11/20 7:51:00 CLERK CARRIER, Stop date: 04/11/20 7:51:00 CLERK CARRIER Start Date: 04/11/20 Stop Date: 04/11/20 Status: DiscontinuedLactated Ringers (Bolus) IV 250 mL, 250 ml/hr, Infuse Over: 1 hr, Route: IV, 250, Drug form: INJ, ONCE, Priority: STAT, Dosing Weight 70 kg, Start date: 04/11/20 7:52:00 CLERK CARRIER, Stop date: 04/11/20 7:52:00 CLERK CARRIER, 0 Start Date: 04/11/20 Stop Date: 04/11/20 Status: CompletedLactated Ringers (Bolus) IV 1,000 mL, 1,000 ml/hr, Infuse Over: 1 hr, Route: IV, 1,000, Drug form: INJ, ONCE, Priority: STAT, Dosing Weight 70 kg, Start date: 04/15/20 7:50:00 CLERK CARRIER, Stop date: 04/15/20 7:50:00 CLERK CARRIER, 0 Start Date: 04/15/20 Stop Date: 04/15/20 Status: CompletedLactated Ringers (Bolus) IV 1,000 mL, 1000 ml/hr, Infuse Over: 1 hr, Route: IV, 1,000, Drug form: INJ, ONCE, Priority: STAT, Dosing Weight 70 kg, Start date: 04/10/20 16:55:00 CLERK CARRIER, Stop date: 04/10/20 16:55:00 CLERK CARRIER, 0 Start Date: 04/10/20 Stop Date: 04/10/20 Status: CompletedLactated Ringers (Bolus) IV 500 mL, 500 ml/hr, Infuse Over: 1 hr, Route: IV, 500, Drug form: INJ, ONCE, Dosing Weight 70 kg, Start date: 04/11/20 13:47:00 CLERK CARRIER, Stop date: 04/11/20 13:47:00 CLERK CARRIER, 0 Start Date: 04/11/20 Stop Date: 04/11/20 Status: CompletedLactated Ringers Injection IV (ANES) 1000 mL Route: IV, Total Volume: 1,000, Start date: 04/13/20 10:04:00 CLERK CARRIER, Stop date: 04/13/20 11:04:00 CLERK CARRIER Start Date: 04/13/20 Stop Date: 04/13/20 Status: CompletedlamoTRIgine 200 mg oral tablet 400 mg, 4 tab, Route: PO, Drug form: TAB, Q12H, Dosing Weight 70, kg, Start date: 04/14/20 9:00:00 CLERK CARRIER, Duration: 30 day, Stop date: 05/13/20 21:00:00 CLERK CARRIER, 0 Notes: (Same as:LaMICtal) Start Date: 04/14/20 Stop Date: 05/13/20 Status: OrderedlevETIRAcetam 1000 mg oral tablet 1,000 mg, 2 tab, Route: PO, Drug form: TAB, Q12H, Dosing Weight 70, kg, Start date: 04/13/20 21:00:00 CLERK CARRIER, Duration: 30 day, Stop date: 05/13/20 9:00:00 CLERK CARRIER, 0 Notes: (Same as:Keppra) Start Date: 04/13/20 Stop Date: 05/13/20 Status: OrderedLovenox 40 mg, 0.4 mL, Route: SUB-Q, Drug form: INJ, [id number], Dosing Weight 70, kg, Start date: 04/10/20 11:00:00 CLERK CARRIER, Duration: 30 day, Stop date: 05/09/20 11:00:00 CLERK CARRIER, 0 Notes: (Same as: Lovenox) Start Date: 04/10/20 Stop Date: 04/11/20 Status: Discontinuedmeropenem 500 mg, Route: IVPB, Drug form: PDR/INJ, [id number], Dosing Weight 70, kg, CrCL >/= 50 mL/min, Start date: 04/14/20 21:00:00 CLERK CARRIER, Duration: 7 day, Stop date: 04/21/20 15:00:00 CLERK CARRIER, ABX Indication: Pneumonia, 0 Notes: Same as Merrem Start Date: 04/14/20 Stop Date: 04/21/20 Status: OrderedmetroNIDAZOLE 500 mg, Route: IVPB, ONCE, Dosing Weight 79.545, kg, Priority: STAT, Start date: 04/10/20 4:00:00 CLERK CARRIER, Stop date: 04/10/20 4:00:00 CLERK CARRIER, ABX Indication: Pneumonia Start Date: 04/10/20 Stop Date: 04/10/20 Status: Completedmidazolam 2 mg, Route: IVP, ONCE, Dosing Weight 70, kg, Start date: 04/14/20 20:22:00 CLERK CARRIER, Stop date: 04/14/2020:22:00 CLERK CARRIER Start Date: 04/14/20 Stop Date: 04/14/20 Status: Completedmidazolam (ANES) Route: IV, Drug form: SOLN, ONCE, Stop date: 04/13/20 10:53:00 CLERK CARRIER Start Date: 04/13/20 Stop Date: 04/13/20 Status: Completedmidazolam 100 mg in NS 100 mL (Titrate.) IV 50 mg 50 mg, 50 mL, Rate: Titrate, Start Dose: 1 mg/hr, Titration: Rebolus 1 mg IV and/or Titrate infusionby 1 mg/hour every 30 minutes, Goal(s): RASS -2, Max Dose: 10 mg/hr, Route: IV, Dosing Weight 70 kg,Total Volume: 50, Start date: 04/14/20 21:37:00 C... Notes: (Same as: Versed) Start Date: 04/14/20 Stop Date: 04/15/20 Status: Discontinuedmidazolam 50 mg in NS 50 mL (Titrate.) IV 50 mg 50 mg, 50 mL, Rate: Titrate, Start Dose: 1 mg/hr, Titration: Rebolus 1 mg IV and/or Titrate infusionby 1 mg/hour every 30 minutes, Goal(s): rass, Max Dose: 10 mg/hr, Route: IV, Dosing Weight 79.545 kg, Total Volume: 50, Start date: 04/10/20 1:26:00 C... Notes: (Same as: Versed) Start Date: 04/10/20 Stop Date: 04/10/20 Status: Discontinuednorepinephrine 16 mg in 250 mL (Titrate.) IV 16 mg 16 mg, 250 mL, Rate: Titrate, Start Dose: 5 microgram/min, Titration: 2 microgram/min every 2-5 minutes, Goal(s): MAP >= 65 mmHg, Max Dose: 70 microgram/min, Route: IV, Dosing Weight 70 kg, Total Volume: 250, Start date: 04/14/20 19:55:00 CLERK CARRIER, Duratio... Notes: Same as: Levophed. Administer by either central venous catheter or peripherally-inserted central catheter (PICC) line. Start Date: 04/14/20 Stop Date: 04/15/20 Status: Discontinuednorepinephrine 16 mg in 250 mL (Titrate.) IV 16 mg 16 mg, 250 mL, Rate: Titrate, Start Dose: 5 microgram/min, Titration: 2 microgram/min every 2-5 minutes, Goal(s): MAP >= 65 mmHg, Max Dose: 70 microgram/min, Route: IV, Dosing Weight 79.545 kg, Total Volume: 250, Start date: 04/10/20 0:49:00 CLERK CARRIER, Dura... Notes: Same as: Levophed. Administer by either central venous catheter or peripherally-inserted central catheter (PICC) line. Start Date: 04/10/20 Stop Date: 04/12/20 Status: Discontinuednystatin topical 100,000 units/g powder 1 appl, Route: TOP, PRN, Drug form: PWDR, PRN For Fungal Prophylaxis, Start date: 04/10/20 7:46:00 CLERK CARRIER, Duration: 30 day, Stop date: 05/10/20 7:45:00 CLERK CARRIER, 0 Notes: (Same as:Mycostatin, Nilstat) For external use only. Start Date: 04/10/20 Stop Date: 05/10/20 Status: Orderedocular lubricant 1 appl, Route: BOTH EYES, Q6H, Drug form: OINT, Start date: 04/15/20 0:00:00 CLERK CARRIER, Duration: 30 day, Stop date: 05/14/20 18:00:00 CLERK CARRIER, 0 Notes: (Same as: Lacri-Lube, Puralube, Duratears Naturale, Artificial Tears, and Tears Again ) Start Date: 04/15/20 Stop Date: 05/14/20 Status: Orderedocular lubricant 1 appl, Route: BOTH EYES, Q6H, Drug form: OINT, Start date: 04/10/20 12:00:00 CLERK CARRIER, Duration: 30 day,Stop date: 05/10/20 6:00:00 CLERK CARRIER, 0 Notes: (Same as: Lacri-Lube, Puralube, Duratears Naturale, Artificial Tears, and Tears Again ) Start Date: 04/10/20 Stop Date: 04/13/20 Status: Discontinuedondansetron (ANES) Route: IV, Drug form: INJ, ONCE, Stop date: 04/13/20 11:04:00 CLERK CARRIER Start Date: 04/13/20 Stop Date: 04/13/20 Status: Completedphenylephrine (ANES) Route: IV, Drug form: INJ, ONCE, Stop date: 04/13/20 10:58:00 CLERK CARRIER Start Date: 04/13/20 Stop Date: 04/13/20 Status: CompletedPHOS-NaK 1 packet, Route: PO, Dosing Weight 70, kg, Q8H, Start date: 04/11/20 8:00:00 CLERK CARRIER, Duration: 2 day, Stop date: 04/13/20 0:00:00 CLERK CARRIER Start Date: 04/11/20 Stop Date: 04/11/20 Status: CanceledPHOS-NaK 2 packet, Route: PO, Drug Form: PDR/REC, Dosing Weight 70, kg, Q8H, Start date: 04/11/20 8:00:00 CLERK CARRIER, Duration: 2 day, Stop date: 04/13/20 0:00:00 CLERK CARRIER, 0 Notes: (Same as: Phos-NaK) Each 1.5 gm pkt has 250mg phosphorous. Mix w/2.5oz water and stir. Start Date: 04/11/20 Stop Date: 04/13/20 Status: CompletedPHOS-NaK 2 packet, Route: NG, Drug Form: PDR/REC, Dosing Weight 70, kg, Q8Hnow, Start date: 04/13/20 10:00:00CST, Duration: 2 day, Stop date: 04/15/20 7:00:00 CLERK CARRIER, 0 Notes: (Same as: Phos-NaK) Each 1.5 gm pkt has 250mg phosphorous. Mix w/2.5oz water and stir. Start Date: 04/13/20 Stop Date: 04/15/20 Status: CompletedPlavix 75 mg, Route: PO, Drug form: TAB, Daily, Dosing Weight 70, kg, Start date: 04/12/20 9:00:00 CLERK CARRIER, Duration: 30 day, Stop date: 05/11/20 9:00:00 CLERK CARRIER Start Date: 04/12/20 Stop Date: 04/11/20 Status: Canceledpolyethylene glycol 3350 17 gm, Route: PO, Drug form: PWDR, Daily, Dosing Weight 79.545, kg, Start date: 04/10/20 9:00:00 CLERK CARRIER, Duration: 30 day, Stop date: 05/09/20 9:00:00 CLERK CARRIER, 0 Notes: Dissolve in 8 oz of water or juice.(Same as: Miralax) Start Date: 04/10/20 Stop Date: 05/09/20 Status: Orderedpotassium chloride 20 mEq, 100 mL, Route: IVPB, Drug form: INJ, ONCE, Dosing Weight 70, kg, Start date: 04/10/20 12:25:00 CLERK CARRIER, Stop date: 04/10/20 12:25:00 CLERK CARRIER, Central Line, 0 Notes: (Same as: KCL) 10 mEq/100ml product recommended for peripheral line administration. Infuse no faster than 10 mEq/hr if given peripherally. Start Date: 04/10/20 Stop Date: 04/10/20 Status: Completedpotassium chloride 60 mEq, 3 tab, Route: PO, Drug form: ERTAB, ONCE, Dosing Weight 70, kg, Priority: STAT, Start date: 04/14/20 7:22:00 CLERK CARRIER, Stop date: 04/14/20 7:22:00 CLERK CARRIER, 0 Notes: (Same as: K-Dur )"Do Not Crush" Give with food and full glass of waterFor patients unable to swallow tablet, dissolve in one half glass of water. Allow about 2 minutes for the tablets to disintegrate. Stir before giving to prepare slurry and administer.Please exclude Patients with feedingtube less than 14 [place] (Dobhoff, J-tube etc) and pediatric and patients. Start Date: 04/14/20 Stop Date: 04/14/20 Status: Discontinuedpotassium chloride 20 mEq/15 mL oral liquid (KCL) 60 mEq, 45 mL, Route: PO, Drug form: LIQ, ONCE, Dosing Weight 70, kg, Start date: 04/10/20 10:39:00 CLERK CARRIER, Stop date: 04/10/20 10:39:00 CLERK CARRIER, 0 Notes: (Same as: Potassium Chloride) Start Date: 04/10/20 Stop Date: 04/10/20 Status: Completedpotassium chloride 20 mEq/15 mL oral liquid (KCL) 20 mEq, 15 mL, Route: PO, Drug form: LIQ, Q2H, Dosing Weight 70, kg, Start date: 04/14/20 4:00:00 CLERK CARRIER, Duration: 2 doses or times, Stop date: 04/14/20 6:00:00 CLERK CARRIER, 0 Notes: (Same as: Potassium Chloride) Start Date: 04/14/20 Stop Date: 04/14/20 Status: Canceledpotassium chloride 20 mEq/15 mL oral liquid (KCL) 40 mEq, 30 mL, Route: PO, Drug form: LIQ, Q2H, Dosing Weight 70, kg, Start date: 04/14/20 4:00:00 CLERK CARRIER, Duration: 2 doses or times, Stop date: 04/14/20 6:00:00 CLERK CARRIER, 0 Notes: (Same as: Potassium Chloride) Start Date: 04/14/20 Stop Date: 04/14/20 Status: Completedpotassium chloride 20 mEq/15 mL oral liquid (KCL) 60 mEq, 45 mL, Route: PO, Drug form: LIQ, ONCE, Dosing Weight 70, kg, Start date: 04/14/20 7:35:00 CLERK CARRIER, Stop date: 04/14/20 7:35:00 CLERK CARRIER, 0 Notes: (Same as: Potassium Chloride) Start Date: 04/14/20 Stop Date: 04/14/20 Status: Completedpropofol (ANES) Route: IV, Drug form: INJ, ONCE, Stop date: 04/13/20 10:53:00 CLERK CARRIER Start Date: 04/13/20 Stop Date: 04/13/20 Status: Completedracemic epinephrine 2.25% inhalation solution 11.25 mg, 0.5 mL, Route: NEB, Drug Form: SOLN, Dosing Weight 70, kg, RQ4H, Start date: 04/14/20 19:00:00 CLERK CARRIER, Duration: 30 day, Stop date: 05/14/20 15:00:00 CLERK CARRIER, 0 Notes: (racepinephrine *2.25% inh 0.5ml SOLN) (Same as:S2) Start Date: 04/14/20 Stop Date: 04/14/20 Status: Discontinuedrocuronium 50 mg, Route: IV, ONCE, Dosing Weight 70, kg, Start date: 04/14/20 20:44:00 CLERK CARRIER, Stop date: 04/14/2020:44:00 CLERK CARRIER Start Date: 04/14/20 Stop Date: 04/14/20 Status: Completedrocuronium (ANES) Route: IV, Drug form: INJ, ONCE, Stop date: 04/13/20 10:53:00 CLERK CARRIER Start Date: 04/13/20 Stop Date: 04/13/20 Status: CompletedSaline Flush 0.9% 10 ml, Route: IVP, Drug Form: INJ, Dosing Weight 79.545, kg, Q12H, Start date: 04/10/20 9:00:00 CLERK CARRIER,Duration: 30 day, Stop date: 05/09/20 21:00:00 CLERK CARRIER, 0 Notes: (Same as: BD Posiflush) Start Date: 04/10/20 Stop Date: 05/09/20 Status: OrderedSaline Flush 0.9% 10 ml, Route: IVP, Drug Form: INJ, Dosing Weight 79.545, kg, PRN, PRN Line Flush, Start date: 04/10/20 7:46:00 CLERK CARRIER, Duration: 30 day, Stop date: 05/10/20 7:45:00 CLERK CARRIER, 0 Notes: (Same as: BD Posiflush) Start Date: 04/10/20 Stop Date: 05/10/20 Status: OrderedSaline Flush 0.9% 10 mL, Route: IVP, Drug Form: INJ, Dosing Weight 79.545, kg, PRN, PRN Line Flush, Start date: 04/10/20 0:38:00 CLERK CARRIER, Duration: 30 day, Stop date: 05/10/20 0:37:00 CLERK CARRIER, 0 Notes: (Same as: BD Posiflush) Start Date: 04/10/20 Stop Date: 04/13/20 Status: Discontinuedsenna 8.6 mg, 1 tab, Route: PO, Drug Form: TAB, Dosing Weight 79.545, kg, Q12H, Start date: 04/10/20 9:00:00 CLERK CARRIER, Duration: 30 day, Stop date: 05/09/20 21:00:00 CLERK CARRIER, 0 Notes: (Same as: Senokot) Start Date: 04/10/20 Stop Date: 05/09/20 Status: OrderedSEROquel 25 mg, 1 tab, Route: PO, Drug form: TAB, Bedtime, Dosing Weight 70, kg, Priority: NOW, Start date: 04/11/20 2:45:00 CLERK CARRIER, Duration: 30 day, Stop date: 05/10/20 21:00:00 CLERK CARRIER, 0 Notes: (Same as: SEROquel) Start Date: 04/11/20 Stop Date: 05/10/20 Status: OrderedSodium Chloride 3% inhalation solution 2 mL, Route: NEB, Drug Form: SOLN, Dosing Weight 70, kg, RQ12H, PRN Secretions, Start date: 04/13/2020:55:00 CLERK CARRIER, Duration: 30 day, Stop date: 05/13/20 20:54:00 CLERK CARRIER, 0 Notes: SEE RT DOCUMENTATION (Same as: Hypertonic Saline 3%, Inhalation) Start Date: 04/13/20 Stop Date: 05/13/20 Status: Orderedsodium phosphate + Sodium Chloride 0.9% IV 250 mL 45 mmol, 15 mL, Route: IVPB, ONCE, Dosing Weight 70, kg, Start date: 04/11/20 7:11:00 CLERK CARRIER, Stop date: 04/11/20 7:11:00 CLERK CARRIER, Phosphate level < 1.5 mg/dL, 0 Notes: Infuse over 4 hour. Do not infuse phosphorous concurrently in the same line as TPN or IVF that contains calcium. For double lumen central lines, phosphorous may be infused in a separate lumen from TPN. Start Date: 04/11/20 Stop Date: 04/11/20 Status: Completedsodium phosphate + Sodium Chloride 0.9% IV 250 mL 45 mmol, 15 mL, Route: IVPB, ONCE, Dosing Weight 70, kg, Start date: 04/12/20 5:31:00 CLERK CARRIER, Stop date: 04/12/20 5:31:00 CLERK CARRIER, Phosphate level < 1.5 mg/dL, 0 Notes: Infuse over 4 hour. Do not infuse phosphorous concurrently in the same line as TPN or IVF that contains calcium. For double lumen central lines, phosphorous may be infused in a separate lumen from TPN. Start Date: 04/12/20 Stop Date: 04/12/20 Status: Completedsugammadex (ANES) Route: IV, Drug form: SOLN, ONCE, Stop date: 04/13/20 11:04:00 CLERK CARRIER Start Date: 04/13/20 Stop Date: 04/13/20 Status: Completedvancomycin 1,000 mg, Route: IVPB, Drug form: INJ, [id number], Dosing Weight 70, kg, Start date: 04/15/20 5:00:00 CLERK CARRIER, Duration: 7 day, Stop date: 04/21/20 21:00:00 CLERK CARRIER, ABX Indication: Pneumonia, 0 Notes: TIME CRITICAL MEDICATION(Same As: Vancocin)Infusion rate< 1000 mg: infuse over 1 [id number] - 1500 mg: infuse over 1.5 [id number] - 2000 mg: infuse over 2 hours> 2001 mg: infuse over 2.5 hoursFor adult patients only: Round to nearest 250 mg per Medical Staff approval MEDICATION WASTE Product Size: 1000 mgProduct Wasted: ___ mg Start Date: 04/15/20 Stop Date: 04/21/20 Status: Orderedvancomycin 1.5 gm, 250 mL, Route: IV, Drug form: INJ, ONCE, Dosing Weight 70, kg, Start date: 04/14/20 20:02:00CST, Stop date: 04/14/20 20:02:00 CLERK CARRIER, ABX Indication: Pneumonia, 0 Notes: TIME CRITICAL MEDICATIONSame as: Vancocin-NS (premixed)Infusion rate< 1000 mg: infuse over1 [id number] - 1500 mg: infuse over 1.5 [id number] - 2000 mg: infuse over 2 hours> 2001 mg: infuse over 2.5 hours Start Date: 04/14/20 Stop Date: 04/14/20 Status: Completedvancomycin 2,000 mg, 500 mL, Route: IVPB, Drug form: SOLN, ONCE, Dosing Weight 79.545, kg, Time Critical Medication, Priority: STAT, Start date: 04/10/20 3:59:00 CLERK CARRIER, Stop date: 04/10/20 3:59:00 CLERK CARRIER, ABX Indication: Pneumonia, 0 Notes: TIME CRITICAL MEDICATIONSame as: Vancocin Infusion rate< 1000 mg: infuse over 1 [id number] - 1500 mg: infuse over 1.5 [id number] - 2000 mg: infuse over 2 hours> 2001 mg: infuse over 2.5 hours Start Date: 04/10/20 Stop Date: 04/10/20 Status: Discontinuedvancomycin 1.5 gm, 250 mL, Route: IV, Drug form: INJ, ONCE, Dosing Weight 79.545, kg, Start date: 04/10/20 7:53:00 CLERK CARRIER, Stop date: 04/10/20 7:53:00 CLERK CARRIER, ABX Indication: Pneumonia, 0 Notes: TIME CRITICAL MEDICATIONSame as: Vancocin-NS (premixed)Infusion rate< 1000 mg: infuse over1 [id number] - 1500 mg: infuse over 1.5 [id number] - 2000 mg: infuse over 2 hours> 2001 mg: infuse over 2.5 hours Start Date: 04/10/20 Stop Date: 04/10/20 Status: Completedvancomycin 1.2 gm, Route: IV, Q12H, Dosing Weight 79.545, kg, Start date: 04/10/20 21:00:00 CLERK CARRIER, Duration: 7 day, Stop date: 04/17/20 9:00:00 CLERK CARRIER, ABX Indication: Pneumonia Start Date: 04/10/20 Stop Date: 04/10/20 Status: Discontinuedvancomycin 1.25 gm, 250 mL, Route: IVPB, Drug form: INJ, [id number], Dosing Weight 70, kg, Start date: 04/10/20 20:00:00 CLERK CARRIER, Duration: 7 day, Stop date: 04/17/20 8:00:00 CLERK CARRIER, ABX Indication: Pneumonia, 0 Notes: TIME CRITICAL MEDICATIONSame as: Vancocin-NS (premixed)Infusion rate< 1000 mg: infuse over1 [id number] - 1500 mg: infuse over 1.5 [id number] - 2000 mg: infuse over 2 hours> 2001 mg: infuse over 2.5 hours Start Date: 04/10/20 Stop Date: 04/12/20 Status: DiscontinuedVersed 2 mg, 2 mL, Route: IVP, Drug form: INJ, ONCE, Dosing Weight 70, kg, Start date: 04/14/20 21:51:00 CLERK CARRIER, Stop date: 04/14/20 21:51:00 CLERK CARRIER, 0 Notes: (Same as: Versed) MEDICATION WASTE Product Size: 2 mgProduct Wasted: ___ mg Start Date: 04/14/20 Stop Date: 04/14/20 Status: CompletedVersed 2 mg, 2 mL, Route: IVP, Drug form: INJ, ONCE, Dosing Weight 70, kg, Start date: 04/15/20 3:40:00 CLERK CARRIER, Stop date: 04/15/20 3:40:00 CLERK CARRIER, 0 Notes: (Same as: Versed) MEDICATION WASTE Product Size: 2 mgProduct Wasted: ___ mg Start Date: 04/15/20 Stop Date: 04/15/20 Status: Completed Results Most recent to oldest 1 2 3 [Reference Range]: Procalcitonin Lvl 0.86 ng/mL 3.97 ng/mL 1 12.83 ng/mL 2 [0.00-0.10 ng/mL] *HI* *CRIT* *CRIT* (04/15/20 12:16 AM) (04/12/20 3:24 AM) (04/10/20 2:33 AM) Neutrophils # [1.5-8.1 5.5 K/CMM 5.1 K/CMM 7.0 K/CMM K/CMM] (04/15/20 12:16 AM) (04/14/20 1:42 AM) (04/13/20 4:37 AM) Lymphocytes # [1.0-5.5 0.9 K/CMM 1.9 K/CMM 0.8 K/CMM K/CMM] *LOW* (04/14/20 1:42 AM) *LOW* (04/15/20 12:16 AM) (04/13/20 4: 37 AM) Monocytes # [0.0-0.8 0.4 K/CMM 0.3 K/CMM 0.4 K/CMM K/CMM] (04/15/20 12:16 AM) (04/14/20 1:42 AM) (04/13/20 4:37 AM) BNP [<=100 pg/mL] 1275 pg/mL *HI* (04/10/20 8:40 AM) Vanco Tr TND 2100 *NA* (04/15/20 8:45 PM) Vanco Tr 18.7 ug/ml *NA* (04/15/20 8:45 PM) Plt Morph [Normal] Normal Normal (04/13/20 4:37 AM) (04/10/20 8:40 AM) Bili Indirect [0.0-1.0 0.2 mg/dL 0.4 mg/dL mg/dL] (04/12/20 3:24 AM) (04/10/20 8:40 AM) Source Strep Urine *NA* (04/10/20 10:56 AM) Strep pneumoniae Ag Negative [Negative] (04/10/20 10:56 AM) G-value Rapid [5.0-11.6 K 13.5 K d/sc d/sc] *HI* (04/10/20 2:33 AM) K-time Rapid [0.6-2.3 0.8 minutes minutes] (04/10/20 2:33 AM) Max Amplitude Rapid [52-71 73 mm mm] *HI* (04/10/20 2:33 AM) R-time Rapid [0.4-0.7 0.6 minutes minutes] (04/10/20 2:33 AM) Angle Rapid [64-80 79 degrees degrees] (04/10/20 2:33 AM) MRSA by PCR Negative (04/10/20 8:40 AM) eGFR 114 mL/min/1.73m2 3 109 mL/min/1.73m2 4 62 mL/mi n/1.73m2 5 *NA* *NA* *NA* (04/15/20 12:16 AM) (04/14/20 6:14 PM) (04/14/20 1:42 AM) ABO/Rh O NEG *Unknown* (04/10/20 2:33 AM) A/G Ratio [0.7-1.6] 0.7 0.9 (04/12/20 3:24 AM) (04/10/20 8:40 AM) Antibody Scrn Negative (04/10/20 2:33 AM) Albumin Lvl [3.5-5.0 g/dL] 2.2 g/dL 2.6 g/dL *LOW* *LOW* (04/12/20 3:24 AM) (04/10/20 8:40 AM) Alk Phos [39-136 unit/L] 54 unit/L 51 unit/L (04/12/20 3:24 AM) (04/10/20 8:40 AM) ALT [0-65 unit/L] 46 unit/L 33 unit/L (04/12/20 3:24 AM) (04/10/20 8:40 AM) Ammonia [<=45.0 uMol/L] 29.0 uMol/L (04/10/20 8:40 AM) AGAP [10.0-20.0 mEq/L] 8.5 mEq/L 7.3 mEq/L 17.0 mEq/ L *LOW* *LOW* (04/14/20 1:42 A M) (04/15/20 12:16 AM) (04/14/20 6:14 PM) Anisocyte [None Seen] 1+ *ABN* (04/10/20 8:40 AM) AST [0-37 unit/L] 95 unit/L 126 unit/L *HI* *HI* (04/12/20 3:24 AM) (04/10/20 8:40 AM) Bands [0.0-11.0 %] 4.0 % 16.0 % 11.0 % (04/12/20 3:24 AM) *HI* (04/10/20 8:40 AM) (04/11/20 1:14 AM) Basophils [0.0-1.0 %] 0.1 % 0.1 % 0.1 % (04/15/20 12:16 AM) (04/14/20 1:42 AM) (04/13/20 4:37 AM) BUN [7-22 mg/dL] 14 mg/dL 13 mg/dL 12 mg/dL (04/15/20 12:16 AM) (04/14/20 6:14 PM) (04/14/20 1:42 AM) Calcium Lvl [8.5-10.5 8.3 mg/dL 8.2 mg/dL 8.5 mg/dL mg/dL] *LOW* *LOW* (04/14/20 1:42 A M) (04/15/20 12:16 AM) (04/14/20 6:14 PM) Chloride Lvl [95-109 108 mEq/L 109 mEq/L 105 mEq/L mEq/L] (04/15/20 12:16 AM) (04/14/20 6:14 PM) (04/14/20 1:42 AM) CO2 [24-32 mEq/L] 28 mEq/L 28 mEq/L 22 mEq/L (04/15/20 12:16 AM) (04/14/20 6:14 PM) *LOW* (04/14/20 1:42 A M) Creatinine Lvl [0.50-1.40 0.53 mg/dL 0.62 mg/dL 1.08 m g/dL mg/dL] (04/15/20 12:16 AM) (04/14/20 6:14 PM) (04/14/20 1:42 AM) CRP [<=2.9 mg/L] 55.9 mg/L *HI* (04/15/20 12:16 AM) Bili Direct [0.0-0.3 0.1 mg/dL 0.2 mg/dL mg/dL] (04/12/20 3:24 AM) (04/10/20 8:40 AM) Eosinophils [0.0-4.0 %] 0.1 % (04/14/20 1:42 AM) Globulin [2.7-4.2 g/dL] 3.1 g/dL 2.8 g/dL (04/12/20 3:24 AM) (04/10/20 8:40 AM) Glucose Lvl [70-99 mg/dL] 136 mg/dL 119 mg/dL 113 mg /dL *HI* *HI* *HI* (04/15/20 12:16 AM) (04/14/20 6:14 PM) (04/14/20 1:42 AM) Hct [36.0-48.0 %] 30.2 % 33.8 % 30.5 % *LOW* *LOW* *LOW* (04/15/20 12:16 AM) (04/14/20 1:42 AM) (04/13/20 4:37 AM) Hgb [12.0-16.0 g/dL] 9.9 g/dL 11.1 g/dL 10.2 g/dL *LOW* *LOW* *LOW* (04/15/20 12:16 AM) (04/14/20 1:42 AM) (04/13/20 4:37 AM) Hgb A1C [<=5.6 %] 5.1 % (04/10/20 8:40 AM) INR [0.85-1.17] 1.11 1.32 1.30 (04/13/20 4:37 AM) *HI* *HI* (04/11/20 12:29 PM) (04/10/20 8:40 AM) Potassium Lvl [3.5-5.1 4.5 mEq/L 5.3 mEq/L 3.0 mEq/L 6 mEq/L] (04/15/20 12:16 AM) *HI* *CRIT* (04/14/20 6:14 PM) (04/14/20 1:4 2 AM) Lactic Acid Lvl [0.5-2.2 1.9 mMol/L 1.2 mMol/L 2.1 mMo l/L mMol/L] (04/14/20 6:13 AM) (04/12/20 3:24 AM) (04/11/20 6 :05 PM) Atypical Lymphs [<=0.0 %] 0.0 % 0.0 % 0.0 % (04/12/20 3:24 AM) (04/11/20 1:14 AM) (04/10/20 8: 40 AM) Lymphocytes [20.0-40.0 %] 12.9 % 25.6 % 10.0 % *LOW* (04/14/20 1:42 AM) *LOW* (04/15/20 12:16 AM) (04/13/20 4: 37 AM) MCH [27.0-31.0 pg] 27.9 pg 28.3 pg 27.8 pg (04/15/20 12:16 AM) (04/14/20 1:42 AM) (04/13/20 4:37 AM) MCHC [32.0-36.0 g/dL] 32.9 g/dL 32.9 g/dL 33.3 g/dL (04/15/20 12:16 AM) (04/14/20 1:42 AM) (04/13/20 4:37 AM) MCV [80.0-98.0 fL] 84.8 fL 86.0 fL 83.5 fL (04/15/20 12:16 AM) (04/14/20 1:42 AM) (04/13/20 4:37 AM) Metamyelocytes [0.0-1.0 %] 3.0 % *HI* (04/10/20 8:40 AM) Magnesium Lvl [1.8-2.4 2.0 mg/dL 2.3 mg/dL 2.4 mg/dL mg/dL] (04/15/20 12:16 AM) (04/14/20 6:14 PM) (04/14/20 1:42 AM) Monocytes [2.0-12.0 %] 6.4 % 4.5 % 5.0 % (04/15/20 12:16 AM) (04/14/20 1:42 AM) (04/13/20 4:37 AM) MPV [7.4-10.4 fL] 7.2 fL 7.4 fL 7.4 fL *LOW* (04/14/20 1:42 AM) (04/13/20 4:3 7 AM) (04/15/20 12:16 AM) Sodium Lvl [135-145 mEq/L] 140 mEq/L 139 mEq/L 141 m Eq/L (04/15/20 12:16 AM) (04/14/20 6:14 PM) (04/14/20 1:42 AM) Phosphorus [2.5-4.5 mg/dL] 3.6 mg/dL 3.1 mg/dL 2.8 m g/dL (04/15/20 12:16 AM) (04/14/20 6:14 PM) (04/14/20 1:42 AM) Platelet [133-450 K/CMM] 209 K/CMM 229 K/CMM 192 K/C MM (04/15/20 12:16 AM) (04/14/20 1:42 AM) (04/13/20 4:37 AM) Segs [45.0-75.0 %] 80.6 % 69.7 % 84.9 % *HI* (04/14/20 1:42 AM) *HI* (04/15/20 12:16 AM) (04/13/20 4: 37 AM) Total Protein [6.4-8.4 5.3 g/dL 5.4 g/dL g/dL] *LOW* *LOW* (04/12/20 3:24 AM) (04/10/20 8:40 AM) PT [12.0-14.7 seconds] 14.3 seconds 16.5 seconds 16.3 seco nds (04/13/20 4:37 AM) *HI* *HI* (04/11/20 12:29 PM) (04/10/20 8:40 AM) PTT [22.9-35.8 seconds] 59.6 seconds 81.4 seconds 52.6 sec onds *HI* *HI* *HI* (04/13/20 4:37 AM) (04/12/20 5:46 PM) (04/12/20 9:59 AM) Coronavirus (COVID-19) BONNIE Not Detected [Not Detected] (04/10/20 2:33 AM) RBC [4.20-5.40 M/CMM] 3.56 M/CMM 3.94 M/CMM 3.66 M/CMM *LOW* *LOW* *LOW* (04/15/20 12:16 AM) (04/14/20 1:42 AM) (04/13/20 4:37 AM) RBC Morph [Normal] Normal (04/13/20 4:37 AM) RDW [11.5-14.5 %] 16.6 % 16.4 % 16.6 % *HI* *HI* *HI* (04/15/20 12:16 AM) (04/14/20 1:42 AM) (04/13/20 4:37 AM) Bili Total [0.2-1.3 mg/dL] 0.3 mg/dL 0.6 mg/dL (04/12/20 3:24 AM) (04/10/20 8:40 AM) Troponin-I [0.00-0.40 0.17 ng/mL 3.02 ng/mL 7 4.52 ng/mL 8 ng/mL] (04/15/20 8:08 AM) *CRIT* *CRIT* (04/11/20 6:05 PM) (04/11/20 12:29 PM) Troponin-T [0.000-0.100 0.119 ng/mL 9 ng/mL] *CRIT* (04/15/20 8:08 AM) UA Bili [Negative] Negative *NA* (04/10/20 2:35 AM) UA Blood [Negative] Large *ABN* (04/10/20 2:35 AM) UA Color [Yellow] Yellow *NA* (04/10/20 2:35 AM) UA Glucose [Negative Negative mg/dL mg/dL] *NA* (04/10/20 2:35 AM) UA Hyal Cast [0-2 /LPF] 4 /LPF *HI* (04/10/20 2:35 AM) UA Ketones [Negative Negative mg/dL mg/dL] *NA* (04/10/20 2:35 AM) UA Leuk Est [Negative] Negative (04/10/20 2:35 AM) UA Mucus [None Seen /LPF] Few /LPF *NA* (04/10/20 2:35 AM) UA Nitrite [Negative] Negative (04/10/20 2:35 AM) UA pH [5.0-8.0] 6.0 (04/10/20 2:35 AM) UA Protein [Negative Negative mg/dL mg/dL] (04/10/20 2:35 AM) UA RBC [0-2 /HPF] 5 /HPF *HI* (04/10/20 2:35 AM) UA Spec Grav [<=1.030] 1.016 (04/10/20 2:35 AM) UA Sq Epi None Seen *NA* (04/10/20 2:35 AM) UA Turbidity [Clear] Clear (04/10/20 2:35 AM) UA Urobilinogen [0.1-1.0 2.0 mg/dL mg/dL] *HI* (04/10/20 2:35 AM) UA WBC [0-5 /HPF] 1 /HPF (04/10/20 2:35 AM) Vanco Lvl 11.6 ug/ml *NA* (04/11/20 7:48 PM) WBC [3.7-10.4 K/CMM] 6.8 K/CMM 7.3 K/CMM 8.2 K/CMM (04/15/20 12:16 AM) (04/14/20 1:42 AM) (04/13/20 4:37 AM) Aspergillus galactomannan NOT DETECTED 10 Ag *NA* (04/10/20 1:28 PM) ACT (TEG) Rapid [86-118 105 seconds seconds] (04/10/20 2:33 AM) Estimated % Lysis Rapid 0.8 % [0.0-7.5 %] (04/10/20 2:33 AM) Split Point Rapid 0.5 minutes *NA* (04/10/20 2:33 AM) Ca Ion WB [1.05-1.25 1.09 mMol/L 1.09 mMol/L 0.97 mMol/L mMol/L] (04/15/20 12:16 AM) (04/14/20 1:42 AM) *LOW* (04/13/20 4:37 A M) Ca Norm WB [1.05-1.25 1.10 mMol/L 1.01 mMol/L 1.03 mMol/ L mMol/L] (04/15/20 12:16 AM) *LOW* *LOW* (04/14/20 1:42 AM) (04/13/20 4:3 7 AM) Influenza A PCR [Negative] Negative *NA* (04/10/20 8:40 AM) Influenza B PCR [Negative] Negative *NA* (04/10/20 8:40 AM) RSV PCR [Negative] Negative *NA* (04/10/20 8:40 AM) Source Respiratory Panel Nasophrngl Swb PCR *NA* (04/10/20 8:40 AM) Aspergillus galactomannan <0.50 Index *NA* (04/10/20 1:28 PM) 1Result Comment: Critical Result(s) called to Cesar Elton at 04/12/2020 04:40 by AH. Read back OK.2Result Comment: Critical Result(s) called to BRENDEN B at 04/10/2020 06:24 by AAA. Read back OK.3Result Comment: The eGFR is calculated using the [...] eGFR should be multiplied by the estimated BMI.4Result Comment: The eGFR is calculated using the [...] eGFR should be multiplied by the estimated BMI.5Result Comment: The eGFR is calculated using the [...] eGFR should be multiplied by the estimated BMI.6Result Comment: Critical Result(s) called to Meseret Schmitt at 04/14/2020 03:38 by AA. Read back OK.7Result Comment: Critical Result(s) called to Cesar Morris at 04/11/2020 19:44 by FNS. Read back OK.8 Result Comment: Critical Result(s) called to Mon. Forrest at 04/11/2020 14:15 by BLJarad. Read back OK.9Result Comment: Critical Result(s) called to Faby Guzman at 04/15/2020 09:38 by . Read back OK.10Result Comment: REFERENCE RANGE: <0.50, NOT DETECTED A negative result does not exclude invasive aspergillosis. Follow-up testing may be indicated for high-risk patients. Test Performed at: [facility] [id number] [place], [place] [id number] Bernard Martinez MDMicrobiology Reports TEST:Culture: Urine STATUS:Order in Progress BODY SITE: SOURCE:Urine, Catheterized COLLECTED DATE/TIME:04/14/20 6:13 AMPRELIMINARY REPORTNo Growth; Holding TEST:Culture: Respiratory w/Gram Stain STATUS:Auth (Verified) BODY SITE: SOURCE:Tracheal Aspirate COLLECTED DATE/TIME:04/10/20 8:40 AMFINAL REPORTModerate Staphylococcus aureus IsolatedSTAIN REPORTGram Stain Performed By: [facility] ORGANISM:Staphylococcus aureusORGANISM:Staphylococcus aureus Immunizations Given and Recorded Vaccine Date Status Refusal Reason pneumococcal 23-valent vaccine 05/11/15 Given Procedures Procedure Date Related Diagnosis Body Site Status Arterial catheterization or 04/14/20 Completed cannulation for sampling, monitoring or transfusion (separate procedure); percutaneous Bronchoscopy, rigid or flexible, 04/14/20 Completed including fluoroscopic guidance, when performed; with bronchial alveolar lavage Intubation, endotracheal, emergency 04/14/20 Completed procedure Craniotomy 05/04/99 Completed Biopsy of breast Completed Creation of GRANULATOR OPERATOR shunt Complet ed Excision of ovary Completed Stereotactic focused gamma C ompleted radiosurgery of cerebrum Social History Social History Type Response Alcohol Never Smoking Status Never smoker; Ready to hunt e: No; Concerns about tobacco use in household: No; Exposure to Tobacco Smoke None; Cigarette Smoking Last 365 Days No; Reg Smoking Cessation Counseling No entered on: 04/10/20 Assessment and Plan Extracted from: Title: Supportive Medicine Consult Author: Colette Kennedy Date: 04/15/20 Note Ms. 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 Overnight, pt required re-intubation for airway protection and hypoxia. Supportive Medicine was consult ed to assist w/ goals of care in the setting of possible tracheostomy. Goals of Care/Palliative: - Full code - Spoke w/ pt's sister/guardian, Simón corley, by phone. She is able to express a good understanding of pt's medical problems and current options. She reports that pt'squality of life has changed lilian stically since her first gamma knife pro cedure in Jan 2020. Prior to gamma knife, pt was able to talk; can hear some w/ hearing aids at baseline. She states that pt basically just sits, she has not bee n walking or talking as she had in the p ast. She also reports a slowerdecline over the past2 yrs. She notes pt was having difficulty swallowing since end of Nov and they were having to give pt liqui d foods/soups. Discussed aspiration and possible trach. Explained that trach will not completely alleviate risk of aspiration PNA and will not improve pt's neurological status or quality of life. Review ed option of comfort measures,withdraw al of life-sustaining support, and possible hospice w/ intent to allow for a natural and dignified . Pt's sister is hesitant to proceed w/ trach if it would not improve pt's quality of life. She wo uld like to discuss this w/ her mother and siblings first though before making a decision. All questions answered. - MICU team updated Advance Care Planning: - Pt is unable to demonstrate capacity t o make complex medical decisions at this time and requires a surrogate decision maker. Surrogate medical decision maker(s): pt's sister, Simón Acosta, states she is legal guardian and has paperwork. [facility] states hospital should have a copy. Explained that there is not a copy in pt's EMR. Requested she provide a copy to us during this admission. Pain: - Current IV Fentanyl infusion is reason able. -Parenteral opioids are considered a h igh risk management option; close monitoring for neurotoxicity is advised. Dyspnea: - As opioids are alleviating in palliati ve patients, Fentanyl regimen as above may be helpful symptomatically. Constipation: - Last bowel movement /12. -Recommend aggressive bowel regimen in the setting of opioid use: - Recommend Senna 1 tablet PO BID. - Can titrate Senna up to 4 tablets PO B ID. - Recommend 17 g Miralax PO qd - Can also consider Bisacodyl suppositor y daily PRN constipation - Goal of one soft stool every 1-2 days. Thank you for the opportunity to partici west in the care of this patient.We will follow along with you. For any questions or concerns, please page us via the page subway train operator or via the pager below. Colette Kennedy PA-C Supportive Medicine Physician [employer] [place] Supportive Medicine Pager: #[phone]
--- OUTSIDE RECORDS SUMMARY | 2020-05-20 11:01 | XMS REPORT | Continuity of Care Document ---
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 Active 02/28/[address] D32.0 Active 01/11/[address] WORSENING BRAIN TUMOR Active 12/05/[address] Discharge Diagnosis: 07/05/19 07/08/2015 [facility] Vomiting, unspecified [address] [place] [address] Discharge Diagnosis: 07/05/19 07/08/2015 [facility] Vomiting in adult [address] [facility] BRAIN SHUNT NOT Active 07/05/19 [facility] [place] DRAINING [address] [place] [address] MENINGIOMA CA Active 06/27/19 [facility] as [address] [place] [address] PAIN Active 05/09/[address] G40.901 Active 05/09/[address] G40.219 Active 05/09/[address] Gastroesophageal Resolved Problem 04/21/2020 [facility] reflux disease Medic al (disorder) Center Blindness - both eyes Resolved Problem 04/21/2020 [facility] (disorder) [facility] Blood clot Resolved Problem 07/29/2015 [facility] (morphologic Medical abnormality) [facility] Intracranial tumor Resolved Problem 04/21/2020 [facility] (disorder) [facility] Cyst of breast Resolved Problem 04/21/2020 [facility] [place] (disorder) [facility] Center Epilepsy (disorder) Resolved Problem 04/21/2020 [facility] Hearing loss Resolved Problem 04/21/2020 [facility] as (finding) [facility] Center Hypothyroidism Resolved Problem 04/21/2020 [facility] [place] (disorder) [facility] Center Cyst of ovary Resolved Problem 04/21/2020 [facility] [place] (disorder) [facility] Center Seizure (finding) Resolved Problem 04/21/2020 [facility] Blindness AND/OR Active Problem 04/21/2020 [facility] vision impairment Nh dical level (disorder) Lin[facility] Mood disorder Active Problem 04/21/2020 [facility] [place] (disorder) [facility] 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/2020 [facility] behavior of meninges Medical (disorder) [place] 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 [facility] (disorder) [facility] Seizure disorder Active Problem 04/21/2020 [facility] (disorder) [facility] EPILEPSY, UNSP, NOT Active [facility] INTRACTABLE, WITH [facility] LOCAL-REL SYMPTC EPI Active [facility] W CMPLX PART SEIZ, M edical Center NEOPLASM OF Active [facility] UNSPECIFIED BEHAVIOR Medical OF BRAI [place] BENIGN NEOPLASM OF Active [facility] CEREBRAL MENINGES Me dical Center CEREBRAL EDEMA Active [facility] SEVERE SEPSIS WITH Active [facility] SEPTIC SHOCK [facility] Medications Medication Details Route Status Patient Ordering Order Source Instructions Provider Date morphine 4 4 mg, IVP, Q4H, [place] mg/mL-NaCl 0.9% # 60 mL, 0 2020 Medic al preservative-lazaro Refill(s) Cente r e intravenous solution LORazepam 2 1 mg = 0.5 mL, Active [place] mg/mL injectable IVP, Q4H, PRN as 2020 Medical solution needed for Center anxiety, # 15 mL, 2 Refill(s) haloperidol 5 0.5 mg, IV, Q2H, Active [facility] [place] mg/mL injectable PRN Other -See 2019 Medical solution Comment, PRN Center delirium, X 30 day, # 30 mL, 0 Refill(s) glycopyrrolate 0.4 mg, IV, Q6H, Active [facility] 0.2 mg/mL # 30 mL, 0 2020 Medical intravenous Refill(s) Center solution Acetaminophen 650 mg = 2 tab, Active [place] 325 MG Oral GT, Q6H, # 90 2020 Medica l Tablet tab, 0 Refill(s) Center bisacodyl 10 mg 10 mg = 1 supp, Active [facility] rectal NC, Daily, PRN 2019 Medical suppository Constipation, # Cent er 90 supp, 2 Refill(s) ocular lubricant 1 appl, BOTH Active [facility] ointment EYES, Q2H, PRN 2020 Medical Dry Eyes, # 15 Center gm, 3 Refill(s) Dexamethasone 4 8 mg = 2 tab, Active [place] MG Oral Tablet PO, Q8H-05, X 30 2019 Medical day, # 180 tab, Center 2 Refill(s) lamotrigine 200 400 mg = 2 tab, Active [place] MG PO, Q12H, # 120 2020 Medical Disintegrating tab, 3 Refill(s) Center Tablet Levetiracetam 1,500 mg = 2 Active [place] 750 MG Oral tab, PO, Q12H, # 2020 Med ical Tablet 120 tab, 2 Center Refill(s) Morphine Notes: (Same No Longer [place] as:MORPhine Active 2019 Medical Sulfate) Center glycopyrronium Notes: (Same as: No Longer [place] Robinul) Active 2020 Medical Center Acetaminophen Notes: Do not No Longer [place] exceed 4 gm/day. Active 2019 Medical (Same as: Center Tylenol) Morphine Notes: (Same Inactive [facility] as:MORPhine 2019 Medical Sulfate) Center Bisacodyl Notes: (Same As: No Longer [place] Dulcolax, 2019 [facility] Bisco-Lax) Center Haldol Notes: (Same as: No Longer [place] Haldol) Active [address] [place] [address] Ativan Notes: (Same as: No Longer [place] Ativan) Active [address] [place] [address] Levetiracetam Notes: Same as No Longer H [place] 1000 MG Oral Keppra Active [address] [place] [address] Tablet Center Morphine Notes: (Same Inactive [facility] as:MORPhine 2019 Medical Sulfate) Center POLYETHYLENE Notes: Dissolve No Longer H [place] GLYCOL 3350 in 8 oz of water 2019 Med ical or juice. (Same Center as: Miralax) Lorazepam Notes: (Same as: No Longer [facility] Ativan) Active [address] [place] [address] Center Ondansetron Notes: (Same as: No Longer H [place] Zofran) Active [facility][note 2] Medical MEDICATION WASTE Center Product Size: 4 mg Product Wasted: ___ mg Acetaminophen Notes: Max [place] Longer [place] acetaminophen = Active 2020 Medical 4000 mg/day (4 Center gm/day). (Same as: Tylenol) ocular lubricant Notes: (Same as: No Longer 04/03 [place] Lacri-Lube, Active 2019 [facility] Puralube, [place] Duratears Naturale, Artificial Tears, and Tears Again ) Dexamethasone Notes: Give with No Longer [place] food. (Same As: 2019 [facility] Decadron) [facility] chlorhexidine Notes: (Same As: No Longer [place] gluconate 1.2 Peridex) Active 2020 Medical MG/ML Mouthwash [facility] Calcium Chloride 1,000 mL, 1,000 Inactive [place] 0.0014 MEQ/ML / ml/hr, Infuse 2019 Nh dical Potassium Over: 1 hr, [facility] Chloride 0.004 Route: IV, MEQ/ML / Sodium 1,000, Drug Chloride 0.103 form: INJ, ONCE, MEQ/ML / Sodium Priority: STAT, Lactate 0.028 Dosing Weight 70 MEQ/ML kg, Start date: Injectable 04/15/20 7:50:00 Solution TROUBLE SHOOTING MECHANIC, Stop date: 04/15/20 7:50:00 TROUBLE SHOOTING MECHANIC, 0 Vancomycin 2001 mg: infuse No Longer [place] over 2.5 hours 2019 Medical For adult Center patients only: Round to nearest 250 mg per Medical Staff approval MEDICATION WASTE Product Size: 1000 mg Product Wasted: ___ mg Versed Notes: (Same as: Inactive [facility]th as Versed) 2019 Medical MEDICATION WASTE Center Product Size: 2 mg Product Wasted: ___ mg Calcium Chloride 500 mL, 500 Inactive [place] 0.0014 MEQ/ML / ml/hr, Infuse 2019 Nh dical Potassium Over: 1 hr, [facility] Chloride 0.004 Route: IV, 500, MEQ/ML / Sodium Drug form: INJ, Chloride 0.103 ONCE, Priority: MEQ/ML / Sodium STAT, Dosing Lactate 0.028 Weight 70 kg, MEQ/ML Start date: Injectable 04/15/20 0:38:00 Solution TROUBLE SHOOTING MECHANIC, Stop date: 04/15/20 0:38:00 TROUBLE SHOOTING MECHANIC, 0 ocular lubricant Notes: (Same as: No Longer 04/03 [place] Lacri-Lube, Active 2019 [facility] Puralube, [place] Duratears Naturale, Artificial Tears, and Tears Again ) Versed Notes: (Same as: Inactive Parth as Versed) 2019 Medical MEDICATION WASTE Center Product Size: 2 mg Product Wasted: ___ mg chlorhexidine Notes: (Same As: No Longer [place] gluconate 1.2 Peridex) Active 2019 [facility] MG/ML Mouthwash Center Midazolam Notes: (Same as: No Longer [place] Versed) Active 2019 Medical Center Fentanyl 1,000 microgram, No Longer [place] 20 mL, Rate: Active 2019 Medical Titrate, Start Center Dose: 50 microgram/hr, Titration: 25 microgram/hour every 15 minutes, Goal(s): RASS -1, Max Dose: 300 microgram/hr, Route: IV, Dosing Weight 70 kg, Total Volume: 20, Start date: 04/14/20 21:29:00 TROUBLE SHOOTING MECHANIC, Durat... meropenem Notes: Same as [place]er [place] Merrem Active [facility][note 2] Medical Center Rocuronium 50 mg, Route: Inactive Parth as IV, ONCE, Dosing 2019 Medical Weight 70, kg, Center Start date: 04/14/20 20:44:00 TROUBLE SHOOTING MECHANIC, Stop date: 04/14/20 20:44:00 TROUBLE SHOOTING MECHANIC Fentanyl 50 microgram, Inactive [place] Route: IV, ONCE, 2019 Medical Dosing Weight Center 70, kg, Start date: 04/14/20 20:44:00 TROUBLE SHOOTING MECHANIC, Stop date: 04/14/20 20:44:00 TROUBLE SHOOTING MECHANIC Etomidate 10 mg, Route: Inactive Pankaj alfaro IV, ONCE, Dosing 2019 Medical Weight 70, kg, Center Start date: 04/14/20 20:22:00 TROUBLE SHOOTING MECHANIC, Stop date: 04/14/20 20:22:00 TROUBLE SHOOTING MECHANIC Fentanyl 100 microgram, Inactive Pankaj s Route: IV, ONCE, 2019 Medical Dosing Weight Center 70, kg, Start date: 04/14/20 20:22:00 TROUBLE SHOOTING MECHANIC, Stop date: 04/14/20 20:22:00 TROUBLE SHOOTING MECHANIC Midazolam 2 mg, Route: Inactive [place] IVP, ONCE, 2019 Medical Dosing Weight Center 70, kg, Start date: 04/14/20 20:22:00 TROUBLE SHOOTING MECHANIC, Stop date: 04/14/20 20:22:00 TROUBLE SHOOTING MECHANIC Dopamine Notes: (Same as: [place] Longer [place] Intropin) Active 2019 Medical Administer by Center either central venous catheter or peripherally-ins erted central catheter (PICC) line. Final conc = 3.2 mg/ml. Premix solution. Vancomycin 2001 mg: infuse Inactive [place] over 2.[address] [place] [address] Norepinephrine Notes: Same as: No Longer [place] Levophed. Active 2019 Medical Administer by Center either central venous catheter or peripherally-ins erted central catheter (PICC) line. Racepinephrine Notes: Inactive [place] 22.5 MG/ML (racepinephrine 2019 Medic al Inhalant *2.25% inh 0.5ml Center Solution SOLN) (Same as:S2) Dexamethasone Notes: Give with No Longer [place] food. Active 2019 [facility] Dexamethasone Notes: Inactive [place] Concentration: 2019 [facility] 4mg/ml Center lamotrigine 200 Notes: (Same No Longer H [place] MG Oral Tablet as:LaMICtal) Active 2019 [facility] Potassium Notes: (Same as: Inactive [place] Chloride 1.33 Potassium 2019 [facility] MEQ/ML Oral Chloride) Center Solution Potassium Notes: (Same as: Inactive [place] Chloride K-Dur 20) "Do 2019 Medical Not Crush" Give Center with food and full glass of water For patients unable to swallow tablet, dissolve in one half glass of water. Allow about 2 minutes for the tablets to disintegrate. Stir before giving to prepare slurry and administer. Please exclude Patient’s with feeding tube less than 14 Kinyarwanda (Dobhoff, J-tube etc) and pediatric and patients. Cleocin HCl Notes: Inactive [place] (clindamycin 150 2019 Medical mg/1 ml (600 Center mg/4 ml VL) INJ) (Same As: Cleocin) Clindamycin 300 mg, Route: Inactive [place] IVPB, ABXQ8H, 2019 Medical Dosing Weight Center 70, kg, Start date: 04/14/20 5:00:00 TROUBLE SHOOTING MECHANIC, Duration: 7 day, Stop date: 04/20/20 21:00:00 TROUBLE SHOOTING MECHANIC, ABX Indication: Bacteremia Potassium Notes: (Same as: Inactive [place] Chloride 1.33 Potassium 2020 [facility] MEQ/ML Oral Chloride) [facility] Solution Keppra 500 mg, Route: Inactive [place] PO, ONCE, Dosing [facility][note 2] Medical Weight 70, kg, Center Start date: 04/14/20 2:32:00 TROUBLE SHOOTING MECHANIC, Stop date: 04/14/20 2:32:00 TROUBLE SHOOTING MECHANIC Ativan Notes: (Same as: No Longer [place] Ativan) Active [address] [place] [address] Levetiracetam Notes: (Same No Longer [facility] 1000 MG Oral as:Keppra) Active [address] [place] [address] Tablet [place] Albuterol 0.833 Notes: (Same as: No Longer 04/14 [facility] MG/ML / Duoneb) Active [address] [place] [address] Ipratropium [place] Wil[place] 0.167 MG/ML Inhalant Solution [DuoNeb] Sodium Chloride Notes: SEE RT No Longer [facility] 3% inhalation DOCUMENTATION Active [address] [place] [address] mesha solution (Same as: [place] Hypertonic Saline 3%, Inhalation) Ativan Notes: (Same as: No Longer [place] Ativan) Active [address] [place] [address] heparin sodium, Notes: porcine No Longer [facility] porcine 2500 heparin Active [address] [place] [address] UNT/ML Center Injectable Solution ondansetron Route: IV, Drug Inactive [place] (IHSAN) form: INJ, ONCE, 2019 Medical Stop date: [facility] 04/13/20 11:04:00 TROUBLE SHOOTING MECHANIC sugammadex Route: IV, Drug Inactive [facility] [place] (VANDANAS) form: SOLN, [facility][note 2] Medical ONCE, Stop date: [place] 04/13/20 11:04:00 TROUBLE SHOOTING MECHANIC Hydromorphone Notes: Same as Inactive [place] Dilaudid [address] [place] [address] Flumazenil Notes: (Same as: Inactive [place] Romazicon) [address] [place] [address] Naloxone Notes: Same as Inactive Partha s Narcan [address] [place] [address] Ondansetron Notes: (Same as: Inactive [facility] Zofran) [facility][note 2] Medical MEDICATION WASTE Center Product Size: 4 mg Product Wasted: ___ mg phenylephrine Route: IV, Drug Inactive [place] (ANES) form: INJ, ONCE, 2019 Medical Stop date: [place] 04/13/20 10:58:00 TROUBLE SHOOTING MECHANIC midazolam (ANES) Route: IV, Drug Inactive [place] form: SOLN, 2019 Medical ONCE, Stop date: [facility] 04/13/20 10:53:00 TROUBLE SHOOTING MECHANIC propofol (ANES) Route: IV, Drug Inactive [facility] form: INJ, ONCE, 2019 Medical Stop date: [place] 04/13/20 10:53:00 TROUBLE SHOOTING MECHANIC rocuronium Route: IV, Drug Inactive [place] (ANES) form: INJ, ONCE, 2019 Medical Stop date: [place] 04/13/20 10:53:00 TROUBLE SHOOTING MECHANIC fentaNYL (ANES) Route: IV, Drug Inactive [facility] form: INJ, ONCE, 2019 Medical Stop date: [place] 04/13/20 10:53:00 TROUBLE SHOOTING MECHANIC Lactated Ringers Route: IV, Total Inactive 04/13 [facility] Injection IV Volume: 1,000, 2019 Medi mesha ([facility]) 1000 mL Start date: Cente r 04/13/20 10:04:00 TROUBLE SHOOTING MECHANIC, Stop date: 04/13/20 11:04:00 TROUBLE SHOOTING MECHANIC Cefazolin Notes: (Same as No Longer [place] Ancef) Active [address] [place] [address] PHOS-NaK Notes: (Same as: No Longer [facility]) Each Active [facility][note 2] Medical 1.5 gm pkt has Center 250mg phosphorous. Mix w/2.5oz water and stir. Aspirin 81 MG Notes: Take with No Longer [place] Enteric Coated food. Active 2019 [facility] Tablet Center Dexamethasone Notes: No Longer [place] Concentration: Active [facility][note 2] Medical 4mg/ml Center Ceftriaxone Notes: (Same As: Inactive [facility] Rocephin). Use [facility][note 2] Medical with 100 mL NS Center and infuse over 30 min MEDICATION WASTE Product Size: 1000 mg Product Wasted: ___ mg Aspirin 81 MG Notes: Do not Inactive [facility] Enteric Coated crush or chew. 2019 Me dical Tablet (Same As: [place] Ecotrin) Plavix 75 mg, Route: No Longer [place] PO, Drug form: Active 2019 Medical TAB, Daily, Center Dosing Weight 70, kg, Start date: 04/12/20 9:00:00 TROUBLE SHOOTING MECHANIC, Duration: 30 day, Stop date: 05/11/20 9:00:00 TROUBLE SHOOTING MECHANIC sodium phosphate Notes: Infuse Inactive [place] over 4 hour. Do [facility][note 2] Medical not infuse Center phosphorous concurrently in the same line as TPN or IVF that contains calcium. For double lumen central lines, phosphorous may be infused in a separate lumen from TPN. atorvastatin Notes: (Same as: No Longer [facility] Lipitor) Active [address] [place] [address] Famotidine Notes: (Same as: No Longer [facility] Pepcid) Active [address] [place] [address] Calcium Chloride 500 mL, 500 Inactive [place] 0.0014 MEQ/ML / ml/hr, Infuse 2019 Nh dical Potassium Over: 1 hr, Center Chloride 0.004 Route: IV, 500, MEQ/ML / Sodium Drug form: INJ, Chloride 0.103 ONCE, Dosing MEQ/ML / Sodium Weight 70 kg, Lactate 0.028 Start date: MEQ/ML 04/11/20 Injectable 13:47:00 TROUBLE SHOOTING MECHANIC, Solution Stop date: 04/11/20 13:47:00 TROUBLE SHOOTING MECHANIC, 0 Calcium Chloride 250 mL, 250 Inactive [place] 0.0014 MEQ/ML / ml/hr, Infuse 2019 Nh dical Potassium Over: 1 hr, Center Chloride 0.004 Route: IV, 250, MEQ/ML / Sodium Drug form: INJ, Chloride 0.103 ONCE, Priority: MEQ/ML / Sodium STAT, Dosing Lactate 0.028 Weight 70 kg, MEQ/ML Start date: Injectable 04/11/20 Solution 13:11:00 TROUBLE SHOOTING MECHANIC, Stop date: 04/11/20 13:11:00 TROUBLE SHOOTING MECHANIC, 0 Heparin 60 Route: IVP, PRN, No Longer [facility] unit/kg Bolus 3,500 unit, 3.5 Active 2019 Nh dical (Heparin Dosing mL, Drug form: C enter Weight) INJ, PRN, Heparin Protocol, Start date: 04/11/20 11:02:00 TROUBLE SHOOTING MECHANIC Stop date: 05/11/20 11:01:00 TROUBLE SHOOTING MECHANIC, 30 day, 0 Heparin 30 Route: IVP, PRN, No Longer [facility] unit/kg Bolus 1,700 unit, 1.[address] [place] [address] dical (Heparin Dosing mL, Drug form: C enter Weight) INJ, PRN, Heparin Protocol, Start date: 04/11/20 11:02:00 TROUBLE SHOOTING MECHANIC Stop date: 05/11/20 11:01:00 TROUBLE SHOOTING MECHANIC, 30 day, 0 heparin additive Notes: Total No Longer [place] 25,000 unit [12 Concentration = Active 2019 Medical unit/kg/hr] + 50 unit/ ml Center Premix Diluent Total volume = Sodium Chloride 500 ml Send Med 0.45% 500 mL Request 2 hours prior to next bag Aspirin Notes: Take with Inactive Parth as food. 2019 Medical [place] PHOS-NaK 1 packet, Route: Inactive [place] PO, Dosing 2019 Medical Weight 70, kg, Center Q8H, Start date: 04/11/20 8:00:00 TROUBLE SHOOTING MECHANIC, Duration: 2 day, Stop date: 04/13/20 0:00:00 TROUBLE SHOOTING MECHANIC Fentanyl Notes: (Same as: No Longer [place] Sublimaze) Active 2019 Medical Preservative Center free. Calcium Chloride 250 mL, 250 Inactive [place] 0.0014 MEQ/ML / ml/hr, Infuse 2019 Nh dical Potassium Over: 1 hr, [place] Chloride 0.004 Route: IV, 250, MEQ/ML / Sodium Drug form: INJ, Chloride 0.103 ONCE, Priority: MEQ/ML / Sodium STAT, Dosing Lactate 0.028 Weight 70 kg, MEQ/ML Start date: Injectable 04/11/20 7:52:00 Solution TROUBLE SHOOTING MECHANIC, Stop date: 04/11/20 7:52:00 TROUBLE SHOOTING MECHANIC, 0 Calcium Chloride 250 mL, 250 Inactive [place] 0.0014 MEQ/ML / ml/hr, Infuse 2019 Nh dical Potassium Over: 1 hr, [place] Chloride 0.004 Route: IV, ONCE, MEQ/ML / Sodium Priority: STAT, Chloride 0.103 Dosing Weight 70 MEQ/ML / Sodium kg, Start date: Lactate 0.028 04/11/20 7:51:00 MEQ/ML TROUBLE SHOOTING MECHANIC, Stop date: Injectable 04/11/20 7:51:00 Solution TROUBLE SHOOTING MECHANIC Fentanyl 25 microgram, Inactive [place] Route: IV, Q6H, 2019 Medical Dosing Weight Center 70, kg, PRN Agitation, Start date: 04/11/20 7:43:00 TROUBLE SHOOTING MECHANIC, Duration: 30 day, Stop date: 05/11/20 7:42:00 TROUBLE SHOOTING MECHANIC sodium phosphate Notes: Infuse Inactive [place] over 4 hour. Do 2020 Medical not infuse Center phosphorous concurrently in the same line as TPN or IVF that contains calcium. For double lumen central lines, phosphorous may be infused in a separate lumen from TPN. Seroquel Notes: (Same as: No Longer [place] SEROquel) Active [address] [place] [address] Center Vancomycin 1.2 gm, Route: Inactive [place] IV, Q12H, Dosing 2019 Medical Weight 79.545, Center kg, Start date: 04/10/20 21:00:00 TROUBLE SHOOTING MECHANIC, Duration: 7 day, Stop date: 04/17/20 9:00:00 TROUBLE SHOOTING MECHANIC, ABX Indication: Pneumonia Vancomycin 2001 mg: infuse No Longer [place] over 2.[address] [place] [address] Famotidine Notes: (Same as: No Longer [place] Pepcid) Can be Active 2019 [facility] dilute in 5-10cc Center NS IVP: Slow IV push over at least 2 minutes. Calcium Chloride 1,000 mL, 1000 Inactive [place] 0.0014 MEQ/ML / ml/hr, Infuse 2019 Nh dical Potassium Over: 1 hr, Center Chloride 0.004 Route: IV, MEQ/ML / Sodium 1,000, Drug Chloride 0.103 form: INJ, ONCE, MEQ/ML / Sodium Priority: STAT, Lactate 0.028 Dosing Weight 70 MEQ/ML kg, Start date: Injectable 04/10/20 Solution 16:55:00 TROUBLE SHOOTING MECHANIC, Stop date: 04/10/20 16:55:00 TROUBLE SHOOTING MECHANIC, 0 Calcium Chloride 500 mL, 500 Inactive [place] 0.0014 MEQ/ML / ml/hr, Infuse 2019 Nh dical Potassium Over: 1 hr, Center Chloride 0.004 Route: IV, 500, MEQ/ML / Sodium Drug form: INJ, Chloride 0.103 ONCE, Priority: MEQ/ML / Sodium STAT, Dosing Lactate 0.028 Weight 70 kg, MEQ/ML Start date: Injectable 04/10/20 Solution 16:28:00 TROUBLE SHOOTING MECHANIC, Stop date: 04/10/20 16:28:00 TROUBLE SHOOTING MECHANIC, 0 Insulin regular Notes: (Same as: No Longer 04/10 [place] Humulin R) Roll Active 2019 Medical in [facility] hands gently; Do not shake vigorously. WASTE: F/P - Black; E - Municipal Trash Bin Stable for 31 days at room temperature Expires in days from Da te Flagyl Notes: (Same as: No Longer [place] Flagyl) Avoid 2019 Medical alcohol. Center Potassium Notes: (Same as: Inactive [place] Chloride KCL) 10 2019 Medical mEq/100ml Center product recommended for peripheral line administration. Infuse no faster than 10 mEq/hr if given peripherally. cefepime Notes: (Same As: No Longer [place] Maxipime) 2019 Medical MEDICATION WASTE Center Product Size: 1000 mg Product Wasted: ___ mg ocular lubricant Notes: (Same as: No Longer [place] Lacri-Lube, 2019 [facility] Puralube, [place] Duratears Naturale, Artificial Tears, and Tears Again ) Lovenox Notes: (Same as: No Longer [place] Lovenox) Active 2019 [facility] Dextrose 50% in 12.5 gm, 25 mL, No Longer [place] Water IV Route: IVP, Drug Active 2019 Medica l Form: INJ, Center Dosing Weight 70, kg, PRN, PRN Blood Glucose Results, Start date: 04/10/20 10:45:00 TROUBLE SHOOTING MECHANIC, Duration: 30 day, Stop date: 05/10/20 10:44:00 TROUBLE SHOOTING MECHANIC, 0 Glucagon 1 mg, Route: IM, No Longer [place] Drug form: Active 2019 Medical PDR/INJ, PRN, Center Dosing Weight 70, kg, PRN Blood Glucose Results, Start date: 04/10/20 10:45:00 TROUBLE SHOOTING MECHANIC, Duration: 30 day, Stop date: 05/10/20 10:44:00 TROUBLE SHOOTING MECHANIC, 0 Insulin Lispro Notes: (Same as: Inactive [place] Humalog) Roll in 2019 Medical palms of hands Center gently; Do not shake vigorously. WASTE: F/P - Black; E - Municipal Trash Bin Stable for 28 days at room temperature. Expires in days from Da te Calcium Chloride 250 mL, 250 Inactive [place] 0.0014 MEQ/ML / ml/hr, Infuse 2020 Nh dical Potassium Over: 1 hr, [facility] Chloride 0.004 Route: IV, 250, MEQ/ML / Sodium Drug form: INJ, Chloride 0.103 ONCE, Priority: MEQ/ML / Sodium STAT, Dosing Lactate 0.028 Weight 70 kg, MEQ/ML Start date: Injectable 04/10/20 Solution 10:41:00 TROUBLE SHOOTING MECHANIC, Stop date: 04/10/20 10:41:00 TROUBLE SHOOTING MECHANIC, 0 Potassium Notes: (Same as: Inactive [facility] [facility] Chloride 1.[address] [place] [address] MEQ/ML Oral Chloride) [facility] Solution Docusate Notes: (Same as: No Longer [facility] Colace) [address] POLYETHYLENE Notes: Dissolve No Longer 04/10/ [facility] GLYCOL 3350 in 8 oz of water Active [facility] [place][note 2] Med ical or juice. (Same Center as: Miralax) sennosides, LONG TERM Notes: (Same as: No Longer 04/10 [facility] Senokot) [address] Saline Flush Notes: (Same as: No Longer [facility] 0.9% BD Posiflush) [address] chlorhexidine Notes: (Same As: No Longer [facility] gluconate 1.2 Peridex) Active [facility] [place][note 2] Medical MG/ML Mouthwash [place] Vancomycin 2001 mg: infuse Inactive [facility] over 2.[address] [place] [address] chlorhexidine Notes: (Same As: No Longer [facility] gluconate 1.2 Peridex) Active [facility] [place][note 2] Medical MG/ML Mouthwash [place] Nystatin 100 Notes: (Same No Longer [facility] [place] UNT/MG Topical as:Mycostatin, Active 2019 Nh dical Powder Nilstat) For Center external use only. Acetaminophen Notes: Do not No Longer [place] exceed 4 gm/day. Active 2020 Medical (Same as: [place] Tylenol) Saline Flush Notes: (Same as: No Longer [facility] 0.9% BD Posiflush) [address] Dexamethasone Notes: No Longer [place] Concentration: Active 2020 Medical 4mg/ml [place] Metronidazole 500 mg, Route: Inactive [facility] IVPB, ONCE, 2019 Medical Dosing Weight Center 79.545, kg, Priority: STAT, Start date: 04/10/20 4:00:00 [employer] MECH[employer]IC, Stop date: 04/10/20 4:00:00 [employer] SHO[employer] MECH[employer]IC, ABX Indication: Pneumonia cefepime 2 gm, Route: Inactive [facility] IVP, ONCE, 2019 Medical Dosing Weight Center 79.545, kg, Priority: STAT, Start date: 04/10/20 3:59:00 TROUBLE SHOOTING MECH[employer]IC, Stop date: 04/10/20 3:59:00 TROUBLE SHOOTING MECHANIC, ABX Indication: Pneumonia Vancomycin 2001 mg: infuse Inactive [facility] over 2.[address] [place] [address] Famotidine Notes: (Same as: Inactive [facility] Pepcid) Can be 2020 Medical dilute in 5-10 Center NS IVP: Slow IV push over at least 2 minutes. Dexamethasone 10 mg, Route: Inactive [facility] IVP, ONCE, 2019 Medical Dosing Weight Center 79.545, kg, Priority: STAT, Start date: 04/10/20 2:51:00 TR[employer] SHOOTING MECHANIC, Stop date: 04/10/20 2:51:00 [employer] MECH[employer]IC Midazolam Notes: (Same as: Inactive [place] Versed) 2019 [facility] Isolyte S PH-7.4 1,000 mL, Infuse Inactive 04/10 [facility] ([place]) IV Over: 1 hr, 2019 Medical Route: IV, Drug Center form: INJ, ONCE, Priority: STAT, Dosing Weight 79.545 kg, Start date: 04/10/20 1:22:00 TR[employer] SHOOTING MECHANIC, Stop date: 04/10/20 1:22:00 TROUBLE SHOOTING MECHANIC, [place] Dose Fentanyl 1,000 microgram, No Longer [place] 20 mL, Rate: Active [facility] [place][note 2] Medical Titrate, Start Center Dose: 50 microgram/hr, Titration: 25 microgram/hour every 15 minutes, Goal(s): hr, Max Dose: 300 microgram/hr, Route: IV, Dosing Weight 79.545 kg, Total Volume: 20, Start date: 04/10/20 0:49:00 TROUBLE SHOOTING MECHANIC, Duratio... Isolyte S PH-7.4 1,000 mL, Infuse Inactive 04/10 [facility] ([place]) IV Over: 1 hr, 2019 Medical Route: IV, Drug Center form: INJ, ONCE, Priority: STAT, Dosing Weight 79.545 kg, Start date: 04/10/20 0:49:00 TROUBLE SHOOTING MECHANIC, Stop date: 04/10/20 0:49:00 TROUBLE SHOOTING MECHANIC, [place] Dose Norepinephrine Notes: Same as: No Longer [place] Levophed. 2019 Medical Administer by Center either central venous catheter or peripherally-ins erted central catheter (PICC) line. Saline Flush Notes: (Same as: No Longer [place] 0.9% BD Posiflush) [address] Flumazenil 0.2 mg, Route: No Longer [place] IVP, PRN, Dosing Active [facility] [place][note 2] Medical Weight 79.545, Center kg, PRN Benzodiazepine Reversal, Initial dose, Start date: 04/06/20 18:38:00 TR[employer] SHO[employer] MECHANIC, Duration: 30 day, Stop date: 05/06/20 18:37:00 TR[employer] MECH[employer]IC Naloxone 0.4 mg, Route: No Longer Parth as IVP, Q2MIN, Active 2019 Medical Dosing Weight Center 79.545, kg, PRN Narcotic Reversal, Start date: 04/06/20 18:38:00 TROUBLE SHOOTING MECHANIC, Duration: 8 doses or times, Stop date: Limited # of times Ondansetron 4 mg, Route: [place] IVP, ONCE, Active 2019 Medical Dosing Weight Center 79.545, kg, PRN Nausea & Vomiting, Start date: 04/06/20 18:38:00 TROUBLE SHO[employer] MECHANIC Sodium Chloride 1,000 mL, Rate: No Longer [place] 0.9% IV 1,000 mL 50 ml/hr, Infuse Active [address] [place] [address] over: 20 hr, Center Route: IV, Dosing Weight 79.545 kg, Total Volume: 1,000, Priority: Routine, Start date: 04/06/20 15:43:00 TROUBLE SHOOTING MECHANIC, Duration: 30 day, Stop date: 05/06/20 15:42:00 TROUBLE SHOOTING MECHANIC, 1.96, m2 Acetaminophen 325 mg, Route: No Longer H [place] PO, Drug form: [facility] 2019 Medical TAB, Q4H, Dosing Center Weight 79.545, kg, PRN Pain Score 1-3, Start date: 04/06/20 15:43:00 TROUBLE SHOOTING MECHANIC, Duration: 30 day, Stop date: 05/06/20 15:42:00 TROUBLE SHO[employer] MECHANIC Acetaminophen 1 tab, Route: No Longer [place] 325 MG / PO, Drug Form: Active 2019 Medical Hydrocodone TAB, Dosing Center Bitartrate 5 MG Weight 79.545, Oral Tablet kg, Q4H, PRN Pain Score 4-6, Start date: 04/06/20 15:43:00 TROUBLE SHOOTING MECHANIC, Duration: 30 day, Stop date: 05/06/20 15:42:00 TROUBLE SHOOTING MECHANIC Bupivacaine 30 mL, Route: No Longer [place] Hydrochloride MISC, Dosing Active 2020 Medic al 2.5 MG/ML / Weight 79.545, Cente r Epinephrine kg, ONCALL, 0.005 MG/ML Start date: Injectable 04/06/20 6:00:00 Solution TR[employer] MECHANIC, Duration: 30 day, Stop date: 05/06/20 5:59:00 TROUBLE SHOOT[employer] MECHANIC Bacitracin 0.5 1 appl, Route: No Longer [place] UNT/MG / TOP, ONCALL, Active 2019 Medical Polymyxin B 10 Drug form: OINT, [facility] UNT/MG Topical Priority: Ointment Routine, Start [Polysporin] date: 04/06/20 6:00:00 TROUBLE SHOOTING MECHANIC, Duration: 1 doses or times Fentanyl 50 microgram, [place] Long[place] Route: IVP, Active 2019 Medical ONCALL, Dosing Center Weight 79.545, kg, Priority: Routine, Start date: 04/06/20 6:00:00 TROUBLE SHOOTING MECHANIC, Duration: 1 doses or times Sodium Chloride 1,000 mL, Rate: No Longer [place] 0.9% IV 1,000 mL 50 ml/hr, Infuse Active 2019 [facility] over: 20 hr, Center Route: IV, Dosing Weight 79.545 kg, Total Volume: 1,000, Priority: Routine, Start date: 04/06/20 5:49:00 TROUBLE SHOOTING MECHANIC, Duration: 30 day, Stop date: 05/06/20 5:48:00 TROUBLE SHOOTING MECHANIC, 1.96, m2, 0 Dexamethasone 6 mg, Route: Inactive [place] IVP, Drug form: 2019 Medical INJ, ONCE, Center Dosing Weight 79.545, kg, Start date: 04/06/20 5:49:00 TROUBLE SHOOTING MECHANIC, Stop date: 04/06/20 5:49:00 TROUBLE SHOOTING MECHANIC Famotidine Notes: (Same as: Inactive [place] Pepcid) Can be 2020 Medical dilute in 5-10cc Center NS IVP: Slow IV push over at least 2 minutes. Ondansetron Notes: (Same as: No Longer [facility] Zofran) 2019 Medical MEDICATION WASTE Center Product Size: 4 mg Product Wasted: ___ mg Promethazine 25 mg, Route: No Longer [place] IVPB, Q6H, Active 2019 Medical Dosing Weight Center 79.545, kg, PRN Nausea & Vomiting, Start date: 04/06/20 5:49:00 TROUBLE SHOOTING MECHANIC, Duration: 30 day, Stop date: 05/06/20 5:48:00 TROUBLE SHOOTING MECHANIC Fentanyl 25 microgram, No Longer Partha s Route: IVP, Q1H, Active 2019 Medical Dosing Weight Center 79.545, kg, PRN Pain Score 7-10, Priority: Routine, Start date: 04/06/20 5:49:00 TROUBLE SHOOTING MECHANIC, Duration: 1 doses or times, Stop date: Limited # of times Hydralazine 20 mg, Route: No Longer [place] IV, Q4H, Dosing Active 2019 Medical Weight 79.545, Center kg, PRN Hypertension, Start date: 04/06/20 5:49:00 TROUBLE SHOOTING MECHANIC, Duration: 30 day, Stop date: 05/06/20 5:48:00 TROUBLE SHOOTING MECHANIC Labetalol 10 mg, Route: No Longer Parth as IVP, Drug form: Active 2019 Medical INJ, [id number], Center Dosing Weight 79.545, kg, PRN Hypertension, Start date: 04/06/20 5:49:00 TROUBLE SHOOTING MECHANIC, Duration: 3 doses or times, Stop date: Limited # of times Dexamethasone 4 mg, Route: PO, Inactive [place] Q6H, Dosing 2019 Medical Weight 63.636, Center kg, Start date: 12/09/19 18:00:00 CDT, Duration: 30 day, Stop date: 01/08/20 12:00:00 CDT OLANZapine 5 mg 5 mg = 1 tab, Active [facility] oral tablet, PO, BID, PRN 2020 Medica l disintegrating Agitation, # 60 C enter tab, 0 Refill(s), Pharmacy: [facility] #[id number], 167.64, cm, 12/05/19 22:02:00 CDT, Height, 63.636, kg, 12/05/19 22:02:00 CDT, Weight Dexamethasone 4 4 mg = 1 tab, Active [facility] MG Oral Tablet PO, BID, X 30 2019 Med ical day, # 60 tab, 0 Center Refill(s), Pharmacy: [id number], 167.64, cm, 12/05/19 22:02:00 CDT, Height, 63.636, kg, 12/05/19 22:02:00 CDT, Weight Dexamethasone Notes: Inactive [facility] Concentration: 2019 Medical 4mg/ml Center Dexamethasone Notes: Give with Inactive [facility] food. (Same As: [address] [place] [address] Decadron) Center famotidine Notes: (Same as: No Longer [facility] Pepcid) Active [address] [place] [address] olanzapine Notes: (Same as: No Longer [facility] ZyPREXA Zydis Active [address] [place] [address] ODT-Oral Center Disintegrating Tablet) Clonazepam Notes: (Same As: No Longer [facility] KlonoPIN) [address] [facility] Group 3:Reproductive risk Hazardous Drug -- Refer to safe handling procedure PPE Matrix Ativan Notes: (Same as: Inactive [place] as Ativan) [address] [place] [address] Ativan Notes: (Same as: Inactive [place] as Ativan) [address] [place] [address] Cortef Notes: (Same as: [place] Long[place] Cortef) Active [address] [place] [address] levothyroxine 125 microgram = Active [facility] 125 mcg (0.125 1 tab, PO, Daily [facility] [place][note 2] Medical mg) oral tablet Center Hydrocortisone Notes: (Same as: No Longer [facility] Cortef) Active [address] [place] [address] Keppra 500 mg, Route: Inactive [facility] IVPB, Q12H, 2020 Medical Dosing Weight Center 63.636, kg, Priority: Routine, Start date: 12/06/19 9:00:00 CDT, Duration: 30 day, Stop date: 01/04/20 21:00:00 CDT Clonazepam Notes: (Same As: Inactive [facility] KlonoPIN) [address] [place] [address] Hazardous Drug [facility] 3:Reproductive risk Hazardous Drug -- Refer to safe handling procedure PPE Matrix lamotrigine 200 Notes: (Same No Longer [place] MG Oral Tablet as:LaMICtal) Active [address] [place] [address] Levetiracetam Notes: (Same No Longer [place] 1000 MG Oral as:Keppra) [address] Thyroxine Notes: Take 1 No Longer [facility] as hour before or 2 Active [facility] [place][note 2] Medical hours after [facility] meal; Enteral feeds may interefere with the absorption of this medication. (Same as:Levothroid) pregabalin Notes: (Same as: No Longer [facility] Lyrica) [address] Sertraline Notes: (Same as: No Longer [facility] Zoloft) [address] Famotidine Notes: (Same as: No Longer [facility] Pepcid) Can be Active [facility] [place][note 2] Medical dilute in 5-10cc Center NS IVP: Slow IV push over at least 2 minutes. Dexamethasone Notes: No Longer [facility] Concentration: Active [address] [place] [address] 4mg/ml [place] levothyroxine 0 Refill(s) [place] 125 mcg (0.125 [facility] [place][note 2] Medical mg) oral tablet [facility] hydrocortisone 5 TK 3 TS PO QAM No Longer [facility] mg oral tablet AND 1 T IN THE Active [address] [place] [address] dical AFTERNOON PLUS Center EXTRA IN TIMES OF STRESS Ergocalciferol 50,000 IntlUnit Active [facility] [address] UNT Oral = 1 cap, PO, 2019 Medi mesha Capsule qWeek [facility] sertraline 100 100 mg = 1 tab, Active [place] mg oral tablet PO, Daily [address] [place] [address] Levetiracetam 1,000 mg = 1 [place] 1000 MG Oral tab, PO, BID [facility] [place][note 2] Medica l Tablet [place] lamotrigine 200 400 mg = 2 tab, Active [place] MG Oral Tablet PO, BID [address] [place] [address] clonazePAM 0.5 0.5 mg = 1 tab, No Longer [place] mg oral tablet PO, BID Active 2019 [facility] pregabalin 75 mg 75 mg = 1 [...] in 25 gm, 50 mL, No Longer [place] Water IV Route: IVP, Drug Active 2019 Medica l Form: INJ, Center Dosing Weight 63.636, kg, PRN, PRN Blood Glucose Results, Start date: 12/06/19 6:49:00 CDT, Duration: 30 day, Stop date: 01/05/20 6:48:00 CDT, 0 Glucagon 1 mg, Route: IM, No Longer [place] Drug form: Active 2019 Medical PDR/INJ, PRN, Center Dosing Weight 63.636, kg, PRN Blood Glucose Results, Start date: 12/06/19 6:49:00 CDT, Duration: 30 day, Stop date: 01/05/20 6:48:00 CDT, 0 Dexamethasone 8 mg, Route: Inactive [place] IVP, ONCE, [facility] [place][note 2] Medical Dosing Weight Center 63.636, kg, Priority: STAT, Start date: 12/06/19 4:58:00 CDT, Stop date: 12/06/19 4:58:00 CDT Keppra 1,000 mg, Route: Inactive Parth as IVPB, ONCE, [facility] [place][note 2] Medical Dosing Weight Center 63.636, kg, Priority: [...] PEG, Daily, 0 2015 Med ical Refill(s) [facility] levothyroxine 125 microgram = Active [place] 125 mcg (0.125 1 tab, PEG, 2016 Medic al mg) oral tablet Daily, 0 Center Refill(s) Levetiracetam 1,000 mg = 10 Active [place] 100 MG/ML Oral mL, PEG, Q12H, 0 2015 Medical Solution Refill(s) [facility] [Keppra] lamotrigine 200 400 mg = 2 tab, Active [place] MG Oral Tablet PEG, BID, 0 2015 Medic al Refill(s) [facility] Clonazepam 0.5 0.5 mg = 1 tab, Active H [place] MG Oral Tablet PEG, BID, 0 2015 Medic al Refill(s) [facility] pantoprazole 40 40 mg = 1 pkt, Active H [place] mg oral granule PEG, Daily, 0 2015 Me dical Refill(s) [facility] gabapentin 50 300 mg = 6 mL, Active [place] MG/ML Oral PEG, Q8H, 0 2015 Medical Solution Refill(s) [facility] Imodium A-D Notes: (Same as: Inactive [facility] Imodium) 2015 [facility] Menthol 0.0044 Notes: (Same as: Inactive [place] MG/MG / Zinc Calmoseptine) 2015 Medic al Oxide 0.2 MG/MG [facility] Topical Ointment [Calmoseptine Ointment] potassium Notes: (Same as: Inactive [place] chloride Potassium 2015 [facility] Chloride) [facility] Protonix 40 mg, 1 pkt, No Longer [...] No Longer [place] Ciprofloxacin 2 refrigerate Active 2015 Medi mesha MG/ML Injection Center Thyroxine Notes: (Same as: No Longer [place] Synthroid) Active 2015 [facility] Center Keppra Notes: Same as [place] Longer [place] Keppra Mix with Active 2015 Medical 100 mL NS, LR or Center D5W MEDICATION WASTE Product Size: 500 mg Product Wasted: ___ mg Dexamethasone Notes: No Longer [place] Concentration: Active 2015 Medical 4mg/ml Center Protonix Notes: (Same as: No Longer [place] Protonix) Active 2015 [facility] Dexamethasone Notes: Give with Inactive [place] food. (Same As: 2015 Medical Decadron) Center Morphine Notes: (Same No Longer [place] as:MORPhine Active 2015 Medical Sulfate) Center Clindamycin [...] 06/22/15 13:41:00 Iohexol Notes: (Same No Longer [place] as:Omnipaque Active 2015 Medical 350). Center Dexamethasone Notes: Give with No Longer [place] food. Active 2015 [facility] clindamycin Notes: (Same As: No Longer H [place] Cleocin) Active 2015 [facility] Clindamycin Notes: (Same As: Inactive [place] Cleocin) 2016 [facility] docusate Notes: (Same as: No Longer [place] Colace) Active 2015 [facility] docusate Notes: (Same as: [place] Colace) 2016 [facility] Dexamethasone Notes: Give with No Longer [place] food. Active 2015 [facility] Docusate Sodium Notes: (Same as: No Longer 05/18 [place] 100 MG Oral Colace) (Do Not Active 2015 Medi mesha Capsule [Colace] Crush) Center Dulcolax Notes: (Same As: No Longer [place] Laxative Dulcolax, Active 2015 Medical Bisco-Lax) Center senna 8.6 mg Notes: (Same as: No Longer [place] oral tablet Senokot) Active 2016 Medical Center Acetaminophen Notes: (Same as: No Longer [place] 325 MG / [place] 325/5) Do Active 2015 Medica l Hydrocodone not exceed Center Bitartrate 5 MG 4gm/day of Oral Tablet acetaminophen. [[place] 5/325] Multihance 529 Notes: Same as No [...] [place] Longer [place] Pepcid) Active 2015 [facility] Dexamethasone Notes: [place]er [place] MEDICATION WASTE Active 2015 Medical Product Center Size: 10 mg Product Wasted: ___ mg Docusate Notes: (Same as: No Longer [place] Colace) Active 2015 [facility] Hydrocortisone Notes: (Same as: No Longer [place] Cortef) Active 2015 [facility] Magnesium 2 gm, 50 mL, Inactive [place] [...] as: No Longer [place] Cortef) Active 2015 [facility] Multihance 529 Notes: Same as No Longer [place] mg/mL Multihance Active 2015 [facility] Hydrocortisone Notes: (Same as: Inactive [place] Cortef) 2016 [facility] Ativan Notes: (Same as: Inactive Parth as Ativan) 2015 [facility] normal saline 1,000 mL, Rate: No Longer [place] 0.9% IV 1,000 mL 75 ml/hr, Infuse Active 2015 Medical over: 13.3 hr, Center Route: IV, Dosing Weight 76.818 kg, Total Volume: 1,000, Start date: 05/11/15 16:24:00, Duration: 30 day, Stop date: 06/10/15 16:23:00 Ativan Notes: (Same as: Inactive [place] as Ativan) 2015 [facility] Versed 2 mg, Route: IM, Inactive [place] as ONCE, Dosing 2016 Medical Weight 76.818, Center kg, Start date: 05/11/15 11:27:00, Stop date: 05/11/15 11:27:00 Versed Notes: (Same as: [place] Longer [place] Versed) Active 2016 [facility] lamotrigine 200 400 mg = 2 tab, No Longer [place] MG Oral Tablet PO, BID Active 2016 [facility] lamotrigine 200 Notes: (Same No Longer [place] MG Oral Tablet as:LaMICtal) Active 2016 [facility] Thyroxine Notes: Take 1 No Longer Parth as hour before or 2 Active 2015 [facility] hours after [facility] meal; Enteral feeds may interefere with the absorption of this medication. (Same as:Levothroid) Sertraline Notes: (Same as: No Longer [place] Zoloft) Active 2016 [facility] Levetiracetam Notes: (Same No Longer [place] 1000 MG Oral as:Keppra) Active 2016 [facility] Clonazepam Notes: (Same As: No Longer [place] KlonoPIN) Active 2016 [facility] pneumococcal Notes: (Same as: Inactive [facility] capsular Pneumovax 23) 2016 [facility] polysaccharide Refrigerate Cente r type 1 vaccine / pneumococcal capsular polysaccharide type 10A vaccine / pneumococcal capsular polysaccharide type 11A vaccine / pneumococcal capsular polysaccharide type 12F vaccine / pneumococcal capsular polysacchar heparin sodium, Notes: porcine No Longer [facility] porcine 2500 heparin Active 2015 [facility] Injectable Solution Versed Notes: (Same as: [place] Longer [place] Versed) Active 2015 Medical MEDICATION WASTE Center Product Size: 2 mg Product Wasted: _1__ mg Saline Flush Notes: (Same as: No Longer [place] 0.9% BD Posiflush) Active 2016 [facility] Acetaminophen 1,000 mg = 2 No Longer [place] 500 MG Oral tab, PO, Q4H, Active 2015 Medica l Tablet [Tylenol] PRN Pain, # 120 Center tab, 0 Refill(s) Saline Flush Notes: (Same as: No Longer [facility] [place] 0.9% BD Posiflush) Active 2015 [facility] lamotrigine 200 See No Longer Parth as MG Oral Tablet Instructions, 1 Active 2015 edical tab PO Daily, 1 Center Refill(s) levothyroxine 125 microgram = No Longer [place] 125 mcg (0.125 1 tab, PO, Active 2015 Medica l mg) oral tablet Daily, # 30 tab, Center 0 Refill(s) clonazePAM 0.5 0.5 mg = 1 tab, No Longer [place] mg oral tablet PO, BID, # 30 Active 2015 Med ical tab, 0 Refill(s) Center sertraline 100 100 mg = 1 tab, No Longer [place] [...] ource type Reported penicillins Assertion Drug Active [facility] seafood Assertion Drug Active Parth as allergy [facility] Center iodine Assertion Drug Active [place] as topical allergy [facility] Immunizations Immunization Date Given Site Status Last Comments Source Updated pneumococcal 05/11/2015 Right completed Iyamu Parth as 23-valent vaccine Deltoid [facility] Results Order Name Results Value Reference Date Interpretation Comments Delfina rce Range URINE AND UA Color Yellow Yellow 04/16 [facility] STOOL *NA* /2019 [facility] (04/16/20 7:51 AM) Cente r URINE AND UA Turbidity Clear Clear 04/16 [facility] (04/16/20 7:51 AM) /2019 [facility] URINE AND UA Spec Grav 1.015 <=1.030 04/16 [facility] STOOL /[address] [place] [address] URINE AND UA pH 7.0 5.0 - 8.0 04/16 [facility] STOOL /[address] [place] [address] URINE AND UA Protein Negative Negative 04/16 [facility] STOOL mg/dL mg/dL [address] [place] [address] URINE AND UA Glucose Negative Negative 04/16 [facility] STOOL mg/dL mg/dL [address] [place] [address] URINE AND UA Ketones Negative Negative 04/16 [facility] [place] STOOL mg/dL mg/dL [address] [place] [address] URINE AND UA Bili Negative Negative 04/16 [facility] STOOL *NA* /2019 Medical (04/16/20 7:51 AM) Cente r URINE AND UA Blood Negative Negative 04/16 [facility] (04/16/20 7:51 AM) [facility] URINE AND UA 0.2 0.1 - 1.0 04/16 [facility] Urobilinogen /[address] [place] [address] URINE AND UA Nitrite Negative Negative 04/16 [facility] (04/16/20 7:51 AM) [facility] URINE AND UA Leuk Est Negative Negative 04/16 [facility] (04/16/20 7:51 AM) [facility] URINE AND UA Sq Epi Occasional Few /LPF 04/16 [facility] STOOL /LPF /[address] [place] [address] URINE AND UA WBC 2 0 - 5 04/[address] URINE AND UA RBC 2 0 - 2 04/16 [facility] /[address] [place] [address] URINE AND UA Bacteria Occasional None Seen 04/16 [place] STOOL /HPF /HPF /[address] [place] [address] URINE AND UA Mucus Few /LPF None Seen 04/16 [facility] STOOL /LPF /[address] [place] [address] URINE AND UA Amorph Occasional None Seen 04[facility] Denise /HPF /HPF /[address] [place] [address] URINE AND Micro? Performed 04/16 [facility] (04/16/20 7:51 AM) [facility] URINE CHEM U Osmolality 455 300 - 800 04/16 [facility] as [address] URINE CHEM U Sodium 135 04/[address] CHEM PANEL Phosphorus 3.7 2.5 - 4.5 04/[address] CHEM PANEL Magnesium Lvl 2.3 1.8 - 2.4 04/16 [facility] xas 33 [address] CHEM PANEL Glucose Lvl 140 70 - 99 04/[address] CHEM PANEL BUN 13 7 - 22 04/[address] CHEM PANEL Creatinine 0.52 0.50 - 04/16 [place] Lvl 1.[address] [place] [address] CHEM PANEL Sodium Lvl 142 135 - 145 04/[address] CHEM PANEL Potassium Lvl 4.4 3.5 - 5.1 04/16 [facility] [address] CHEM PANEL Chloride Lvl 107 95 - 109 04/16 [facility] CHEM PANEL CO2 32 24 - 32 04/16 [facility] CHEM PANEL Calcium Lvl 8.5 8.5 - 10.5 04/16 [facility] CHEM PANEL AGAP 7.4 10.0 - 04/16 [facility] 20.0 [facility] CHEM PANEL eGFR 115 04/16 Result Comment: The Medical eGFR is Center [...] be multiplied by the estimated BMI. HEMATOLOGY WBC 8.7 3.7 - 10.4 04/[address] HEMATOLOGY RBC 3.54 4.20 - 04/16 [facility] 5.40 [facility] HEMATOLOGY Hgb 9.9 12.0 - 04/16 [facility] 16.0 [facility] HEMATOLOGY Hct 29.9 36.0 - 04/16 [facility] 48.0 [facility] HEMATOLOGY MCV 84.5 80.0 - 04/16 [facility] 98.0 [facility] HEMATOLOGY MCH 28.0 27.0 - 04/16 [facility] 31.0 [facility] HEMATOLOGY MCHC 33.2 32.0 - 04/16 [facility] 36.0 [facility] HEMATOLOGY RDW 16.5 11.5 - 12 [facility] 14.5 [facility] HEMATOLOGY Platelet 254 133 - 450 04/[address] HEMATOLOGY MPV 7.3 7.4 - 10.4 04/[address] HEMATOLOGY Neutrophils # 7.6 1.5 - 8.1 12/14 [facility] [address] HEMATOLOGY Lymphocytes # 0.8 1.0 - 5.5 04/16 [facility] [address] HEMATOLOGY Monocytes # 0.1 0.0 - 0.8 04/[place] [address] HEMATOLOGY Segs 80.0 45.0 - 04/16 [facility] 75.0 /[address] [place] [address] HEMATOLOGY Bands 7.0 0.0 - 11.0 04/[address] HEMATOLOGY Lymphocytes 9.0 20.0 - 04/16 [facility] 40.0 /[address] [place] [address] HEMATOLOGY Monocytes 1.0 2.0 - 12.0 04/[address] HEMATOLOGY Metamyelocyte 1.0 0.0 - 1.0 04/[address] HEMATOLOGY Myelocytes 2.0 <=0.0 % 04/[address] HEMATOLOGY Atypical 0.0 <=0.0 % 04/16 [facility] [address] PARATHYROID Ca Ion WB 1.06 1.05 - 04/16 [facility] PROFILE 1.25 /[address] [place] [address] PARATHYROID Ca Norm WB 1.09 1.05 - 04/16 [facility] PROFILE 1.25 /[address] [place] [address] TOXICOLOGY Vanco Tr 18.7 04/[address] TOXICOLOGY Vanco Tr TND 2100 04/[address] Gram Stain Gram Stain 04/15 [facility] Report Performed Medical By: Center [facility] Culture: Few Yeast 04/15 [facility] Respiratory Normal Respiratory Kate Isolated Medical w/Gram Stain [place] CARDIAC Troponin-I 0.17 0.00 - 04/15 [facility] ENZYMES 0.40 [facility] CARDIAC Troponin-T 0.119 0.000 - 04/15 Result [facility] ENZYMES 0.100 Comment: Medical Critical Center Result(s) called to Faby Guzman at 04/15/2020 09:38 by . Read back OK. CHEM PANEL Procalcitonin 0.86 0.00 - 04/15 [place].10 [facility] CHEM PANEL Phosphorus 3.6 2.5 - 4.5 04/[address] CHEM PANEL Magnesium Lvl 2.0 1.8 - 2.4 04/15 [facility] [address] CHEM PANEL Glucose Lvl 136 70 - 99 04/15 [facility] CHEM PANEL BUN 14 7 - 22 04/15 [facility] CHEM PANEL Creatinine 0.53 0.50 - 04/15 [place] Lvl 1.40 [facility] CHEM PANEL Sodium Lvl 140 135 - 145 04/15 [facility] CHEM PANEL Potassium Lvl 4.5 3.5 - 5.1 04/15 [facility] CHEM PANEL Chloride Lvl 108 95 - 109 04/15 [facility] CHEM PANEL CO2 28 24 - 32 04/15 [facility] CHEM PANEL Calcium Lvl 8.3 8.5 - 10.5 04/15 [facility] CHEM PANEL AGAP 8.5 10.0 - 04/15 [facility] 20.0 [facility] CHEM PANEL eGFR 114 04/15 Result Comment: The Medical eGFR is Center [...] multiplied by the estimated BMI. HEMATOLOGY Segs 80.6 45.0 - 04/15 [facility] 75.0 [facility] HEMATOLOGY Lymphocytes 12.9 20.0 - 04/15 [facility] 40.0 [facility] HEMATOLOGY Monocytes 6.4 2.0 - 12.0 04/[address] HEMATOLOGY Basophils 0.1 0.0 - 1.0 04/[address] HEMATOLOGY Neutrophils # 5.5 1.5 - 8.1 04/15 [facility] /[address] [place] [address] HEMATOLOGY Lymphocytes # 0.9 1.0 - 5.[address] HEMATOLOGY Monocytes # 0.4 0.0 - 0.[address] HEMATOLOGY WBC 6.8 3.7 - 10.4 12/ [address] HEMATOLOGY RBC 3.56 4.20 - 12 [facility] 5.40 /2019 [facility] HEMATOLOGY Hgb 9.9 12.0 - 12/13 [facility] 16.0 /2019 [facility] HEMATOLOGY Hct 30.2 36.0 - 12/13 [facility] 48.0 /2019 [facility] HEMATOLOGY MCV 84.8 80.0 - 12/ [facility] 98.0 /2019 [facility] HEMATOLOGY MCH 27.9 27.0 - 12 [facility] 31.0 /2019 [facility] HEMATOLOGY MCHC 32.9 32.0 - 12/ [facility] 36.0 /2019 [facility] HEMATOLOGY RDW 16.6 11.5 - 12 [facility] 14.5 /2019 [facility] HEMATOLOGY Platelet 209 133 - [address] HEMATOLOGY MPV 7.2 7.4 - 10.4 04/[address] IMMUNOLOGY C-REACTIVE 55.9 <=2.9 mg/L 04/[address] PARATHYROID Ca Ion WB 1.09 1.05 - 12 [facility] PROFILE 1.25 /[address] [place] [address] PARATHYROID Ca Norm WB 1.10 1.05 - 04/15 [facility] PROFILE 1.25 /2019 [facility] CHEM PANEL Glucose Lvl 119 70 - 99 04/[address] CHEM PANEL BUN 13 7 - 22 04/[address] CHEM PANEL Creatinine 0.62 0.50 - 12 [place] Lvl 1.40 [facility] CHEM PANEL Sodium Lvl 139 135 - 145 12/ [address] CHEM PANEL Potassium Lvl 5.3 3.5 - 5.1 04/[address] CHEM PANEL Chloride Lvl 109 95 - [address] CHEM PANEL CO2 28 24 - [address] CHEM PANEL AGAP 7.3 10.0 - 12 [facility] 20.0 /2020 [facility] CHEM PANEL Calcium Lvl 8.2 8.5 - 10.5 04/15 [facility] CHEM PANEL eGFR 109 04/15 Result Comment: The Medical eGFR is Center [...] multiplied by the estimated BMI. CHEM PANEL Magnesium Lvl 2.3 1.8 - 2.4 04/15 [facility] CHEM PANEL Phosphorus 3.1 2.5 - 4.5 04/[address] CHEM PANEL Lactic Acid 1.9 0.5 - 2.2 04/14 [facility] [address] Culture: No Growth 04/[address] CHEM PANEL Glucose Lvl 113 70 - 99 04/[address] CHEM PANEL BUN 12 7 - 22 04/[address] CHEM PANEL Creatinine 1.08 0.50 - 04/14 [facility] Lvl 1.40 [facility] CHEM PANEL Sodium Lvl 141 135 - 145 04/[address] CHEM PANEL Potassium Lvl 3.0 3.5 - 5.1 04/14 Result [facility] Comment: Medical Critical Center Result(s) called to Meseret Schmitt at 04/14/2020 03:38 by AA. Read back OK. CHEM PANEL Chloride Lvl 105 95 - 109 04/14 [facility] [address] CHEM PANEL CO2 22 24 - 32 04/[address] CHEM PANEL AGAP 17.0 10.0 - 04/14 [facility] 20.0 [facility] CHEM PANEL Calcium Lvl 8.5 8.5 - 10.[address] CHEM PANEL eGFR 62 12 Result [place] [id number] Comment: The Medical eGFR is Center calculated [...] multiplied by the estimated BMI. CHEM PANEL Magnesium Lvl 2.4 1.8 - 2.4 04/[address] CHEM PANEL Phosphorus 2.8 2.5 - 4.5 04/[address] HEMATOLOGY Segs 69.7 45.0 - 04/14 [facility] 75.0 2019 [facility] HEMATOLOGY Lymphocytes 25.6 20.0 - 04/14 [facility] 40.0 2019 [facility] HEMATOLOGY Monocytes 4.5 2.0 - 12.0 / [address] HEMATOLOGY Eosinophils 0.1 0.0 - 4.0 04/[address] HEMATOLOGY Basophils 0.1 0.0 - 1.0 / [address] HEMATOLOGY Neutrophils # 5.1 1.5 - 8.1 / [address] HEMATOLOGY Lymphocytes # 1.9 1.0 - 5.5 / [address] HEMATOLOGY Monocytes # 0.3 0.0 - 0.8 / [address] HEMATOLOGY WBC 7.3 3.7 - 10.4 12/ [address] HEMATOLOGY RBC 3.94 4.20 - 12 [facility] 5.40 2019 [facility] HEMATOLOGY Hgb 11.1 12.0 - 12/12 [place] 16.0 /2019 [facility] HEMATOLOGY Hct 33.8 36.0 - 12/12 [place] 48.0 [facility] HEMATOLOGY MCV 86.0 80.0 - 12/12 [place] 98.0 /2019 [facility] HEMATOLOGY MCH 28.3 27.0 - 12/12 [place] 31.0 [facility] HEMATOLOGY MCHC 32.9 32.0 - 12/12 [place] 36.0 [facility] HEMATOLOGY RDW 16.4 11.5 - 12/12 [place] 14.5 /2019 [facility] HEMATOLOGY Platelet 229 133 - 450 12/12 /[address] [place] [address] HEMATOLOGY MPV 7.4 7.4 - 10.4 12/ [address] PARATHYROID Ca Ion WB 1.09 1.05 - 12/12 [place] PROFILE 1.25 [facility] PARATHYROID Ca Norm WB 1.01 1.05 - 04/14 [facility] PROFILE 1.25 [facility] HEMATOLOGY PT 14.3 12.0 - 12/11 [place] 14.7 [facility] HEMATOLOGY INR 1.11 0.85 - 1211 [place] 1.17 [facility] HEMATOLOGY PTT 59.6 22.9 - 1211 [place] 35.8 [facility] HEMATOLOGY RBC Morph Normal Normal 12 [facility] (04/13/20 4:37 AM) /2019 [facility] HEMATOLOGY Plt Morph Normal Normal 12 [facility] (04/13/20 4:37 AM) /2019 [facility] HEMATOLOGY Segs 84.9 45.0 - 1211 [place] 75.0 [facility] HEMATOLOGY Lymphocytes 10.0 20.0 - 12/11 [place] 40.0 [facility] HEMATOLOGY Monocytes 5.0 2.0 - 12.[address] [place] [address] HEMATOLOGY Basophils 0.1 0.0 - 1.0 12/ /[address] [place] [address] HEMATOLOGY Neutrophils # 7.0 1.5 - 8.1 [place] [address] [place] [address] HEMATOLOGY Lymphocytes # 0.8 1.0 - 5.5 12 [place] /[address] [place] [address] HEMATOLOGY Monocytes # 0.4 0.0 - 0.8 [place] /2019 [facility] HEMATOLOGY WBC 8.2 3.7 - 10.4 12/ [address] HEMATOLOGY RBC 3.66 4.20 - 12/11 [place] 5.40 /2019 [facility] HEMATOLOGY Hgb 10.2 12.0 - 12/11 [facility] 16.0 /2020 [facility] HEMATOLOGY Hct 30.5 36.0 - 12/11 [facility] 48.0 /2019 [facility] HEMATOLOGY MCV 83.5 80.0 - 12/11 [facility] 98.0 /2019 [facility] HEMATOLOGY MCH 27.8 27.0 - 12/11 [facility] 31.0 /2019 [facility] HEMATOLOGY MCHC 33.3 32.0 - 12/ [facility] 36.0 /2019 [facility] HEMATOLOGY RDW 16.6 11.5 - 12/ [facility] 14.5 /2019 [facility] HEMATOLOGY Platelet 192 133 - [address] HEMATOLOGY MPV 7.4 7.4 - 10.[address] PARATHYROID Ca Ion WB 0.97 1.05 - 04/13 [facility] PROFILE 1.[address] [place] [address] PARATHYROID Ca Norm WB 1.03 1.05 - 04/13 [facility] PROFILE 1.25 [facility] HEMATOLOGY PTT 81.4 22.9 - 12 [facility] 35.8 /2020 [facility] HEMATOLOGY PTT 52.6 22.9 - 1210 [facility] 35.[address] CHEM PANEL Lactic Acid 1.2 0.5 - 2.2 04/[address] CHEM PANEL Total Protein 5.3 6.4 - 8.4 04/[address] CHEM PANEL Albumin Lvl 2.2 3.5 - 5.0 04/[address] CHEM PANEL ALT 46 0 - 65 04/[address] CHEM PANEL AST 95 0 - 37 04/[address] CHEM PANEL Alk Phos 54 39 - 136 04/[address] CHEM PANEL Bili Total 0.3 0.2 - 1.3 04/[address] CHEM PANEL Bili Direct 0.1 0.0 - 0.3 04/[address] CHEM PANEL Bili Indirect 0.2 0.0 - 1.0 04/[address] CHEM PANEL Globulin 3.1 2.7 - 4.2 04/[address] [place] [address] CHEM PANEL A/G Ratio 0.7 0.7 - 1.6 04/12 [facility] CHEM PANEL Procalcitonin 3.97 0.00 - 04/12 Result [facility] Lvl 0.10 Comment: Medical Critical Center Result(s) called to Cesar Arturo at 04/12/2020 04:40 by AH. Read back OK. HEMATOLOGY Bands 4.0 0.0 - 11.0 04/12 [facility] HEMATOLOGY Atypical 0.0 <=0.0 % 04/12 [facility] TOXICOLOGY Vanco Lvl 11.6 04/12 [facility] CARDIAC Troponin-I 3.02 0.00 - 04/12 Result [facility] ENZYMES 0.40 Comment: Medical Critical Center Result(s) called to Cesar Vian at 04/11/2020 19:44 by FNS. Read back OK. CHEM PANEL Lactic Acid 2.1 0.5 - 2.2 04/12 [facility] Lvl /2019 [facility] CARDIAC Troponin-I 4.52 0.00 - 04/11 Result [facility] ENZYMES 0.40 Comment: Medical Critical Center Result(s) called to Mon. C. at 04/11/2020 14:15 by BLJarad. Read back OK. HEMATOLOGY PT 16.5 12.0 - 04/11 [facility] 14.7 [facility] HEMATOLOGY INR 1.32 0.85 - 04/11 [place] 1.17 [facility] HEMATOLOGY Bands 16.0 0.0 - 11.0 04/11 [facility] HEMATOLOGY Atypical 0.0 <=0.0 % 04/11 [facility] IMMUNOLOGY Aspergillus <0.50 04/10 [facility] galactomannan [facility] IMMUNOLOGY Aspergillus NOT 04/10 Result [facility] galactomannan DETECTED Comment: [facility] REFERENCE Center RANGE: <0.50, NOT DETECTED

A negative result does not exclude invasive
aspergillosis . Follow-up testing may be indicated<br/ >for high-risk patients.<br/ >Test Performed at:
[facility]
[address] [facility]
[place] [address] Bernard Martinez MD BACTERIAL - Source Strep Urine 04/10 [facility] SEROLOGY *NA* /2019 Medical (04/10/20 10:56 AM) Cente r BACTERIAL - Strep Negative Negative 04/10 [facility] SEROLOGY pneumoniae Ag (04/10/20 10:56 AM) /[address] [place] [address] BACTERIAL - MRSA by PCR Negative 04/10 [facility] SEROLOGY (04/10/20 8:40 AM) /2019 [facility] CARDIAC BNP 1275 <=100 04/10 [facility] ENZYMES pg/mL [address] CHEM PANEL Total Protein 5.4 6.4 - 8.4 04/[address] CHEM PANEL Albumin Lvl 2.6 3.5 - 5.0 04/[address] CHEM PANEL ALT 33 0 - 65 04/[address] CHEM PANEL AST 126 0 - 37 04/[address] CHEM PANEL Alk Phos 51 39 - 136 04/[address] CHEM PANEL Bili Total 0.6 0.2 - 1.3 04/[address] CHEM PANEL Bili Direct 0.2 0.0 - 0.3 04/[address] CHEM PANEL Bili Indirect 0.4 0.0 - 1.0 04/[address] CHEM PANEL Globulin 2.8 2.7 - 4.2 04/[address] CHEM PANEL A/G Ratio 0.9 0.7 - 1.6 04/[address] CHEM PANEL Ammonia 29.0 <=45.0 04/10 [facility] uMol/L /[address] [place] [address] CIPROFLOXAC Gram Stain Gram Stain 04/10 [facility] as [place]:SUSC:PT: Report Performed Medical ISOLATE:ORD By: Center QN:ELIZABETH [facility] CIPROFLOXAC Culture: Moderate 04/10 [facility] IN:SUSC:PT: Respiratory Staphyloco /2019 Medic al ISOLATE:ORD w/Gram Stain ccus Center QN:ELIZABETH aureus Isolated CIPROFLOXAC Staphylococcu Staphyloco 04/10 [facility] IN:SUSC:PT: s aureus ccus /2019 Medical ISOLATE:ORD aureus Center QN:ELIZABETH CIPROFLOXAC Staphylococcu Staphyloco 04/10 [facility] IN:SUSC:PT: s aureus ccus Medical ISOLATE:ORD aureus [place] QN:ELIZABETH HEMATOLOGY Bands 11.0 0.0 - 11.0 04/[address] HEMATOLOGY Metamyelocyte 3.0 0.0 - 1.0 04/10 [place] [facility] HEMATOLOGY Atypical 0.0 <=0.0 % 04/10 [facility] Lymphs /2019 [facility] HEMATOLOGY Plt Morph Normal Normal 04/10 [facility] (04/10/20 8:40 AM) /2019 [facility] HEMATOLOGY Anisocyte 1+ None [facility]en [facility] (04/10/20 8:40 AM) [place] HEMATOLOGY PT 16.3 12.0 - 04/10 [facility] 14.7 [facility] HEMATOLOGY INR 1.30 0.85 - 04/10 [facility] 1.17 [facility] MOLECULAR Source Nasophrngl Swb 04/10 [facility] DIAGNOSTIC Respiratory *NA* [facility] Panel PCR (04/10/20 8:40 AM) [facility] MOLECULAR Influenza A Negative Negative 04/10 [facility] DIAGNOSTIC PCR *NA* [facility] (04/10/20 8:40 AM) [place] MOLECULAR Influenza B Negative Negative 04/10 [facility] DIAGNOSTIC PCR *NA* [facility] (04/10/20 8:40 AM) [place] MOLECULAR RSV PCR Negative Negative 04/10 [facility] DIAGNOSTIC *NA* [facility] (04/10/20 8:40 AM) [place] SPECIAL Hgb A1C 5.1 <=5.6 % 04/10 [facility] CHEMISTRY /[address] [place] [address] URINE AND UA Sq Epi None Seen 04/10 [facility] STOOL [address] URINE AND UA Color Yellow Yellow 04/10 [facility] STOOL *NA* [address] [place] [address] (04/10/20 2:35 AM) [place] URINE AND UA Turbidity Clear Clear 04/10 [facility] STOOL (04/10/20 2:35 AM) /2019 [facility] URINE AND UA Spec Grav 1.016 <=1.030 04/10 [facility] STOOL [address] URINE AND UA pH 6.0 5.0 - 8.0 04/10 [facility] STOOL [address] URINE AND UA Protein Negative Negative 04/10 [facility] [place] STOOL mg/dL mg/dL /2019 [facility] URINE AND UA Glucose Negative Negative 04/10 [facility] STOOL mg/dL mg/dL [facility] URINE AND UA Ketones Negative Negative 04/10 [facility] mg/dL mg/dL [facility] URINE AND UA Bili Negative Negative 04/10 [facility] STOOL *NA* /2019 [facility] (04/10/20 2:35 AM) Center URINE AND UA Blood Large Negative 04/10 [facility] *ABN* [facility] (04/10/20 2:35 AM) Center URINE AND UA 2.0 0.1 - 1.0 04/10 [facility] Urobilinogen /2019 [facility] URINE AND UA Nitrite Negative Negative 04/10 [facility] (04/10/20 2:35 AM) /2019 [facility] URINE AND UA Leuk Est Negative Negative 04/10 [facility] (04/10/20 2:35 AM) [facility] URINE AND UA WBC 1 0 - 5 04/10 [facility] STOOL /[address] [place] [address] URINE AND UA RBC 5 0 - 2 04/10 [facility] STOOL /[address] [place] [address] URINE AND UA Mucus Few /LPF None Seen 04/10 [facility] STOOL /LPF /[address] [place] [address] URINE AND UA Hyal Cast 4 0 - 2 04/10 [facility] /[address] [place] [address] BLOOD BANK ABO/Rh O NEG 04/10 [facility] RESULTS /[address] [place] [address] BLOOD BANK Antibody Scrn Negative 04/10 [facility] as RESULTS (04/10/20 2:33 AM) /2019 [facility] CHEM PANEL Procalcitonin 12.83 0.00 - 04/10 Result Pankaj s Lvl 0.10 Comment: Medical Critical Center Result(s) called to BRENDEN Kearns at 04/10/2020 06:24 by AAA. Read back OK. HEMATOLOGY ACT (TEG) 105 86 - 118 04/[address] HEMATOLOGY [place] 0.5 04/10 [facility] Rapid [address] HEMATOLOGY R-time Rapid 0.6 0.4 - 0.7 04/10 [facility] as /[address] [place] [address] HEMATOLOGY K-time Rapid 0.8 0.6 - 2.3 04/10 [facility] as /[address] [place] [address] HEMATOLOGY Angle Rapid 79 64 - 80 04/[address] HEMATOLOGY Max Amplitude 73 52 - 71 04/10 [place] [facility] HEMATOLOGY G-value Rapid 13.5 5.0 - 11.6 04/10 [facility] exas /2019 [facility] HEMATOLOGY Estimated % 0.8 0.0 - 7.5 04/10 [facility] [place] [facility] IMMUNOLOGY Coronavirus Not Detected Not 04/10 [facility]as (COVID-19) (04/10/20 2:33 AM) Nh dical [facility] Center CHEM PANEL Creatinine 0.89 0.50 - 04/06 [facility] Lvl 1.40 [facility] CHEM PANEL eGFR 78 04/06 Result Comment: The Medical eGFR is Center [...] estimated BMI. ENDOCRINOLO hCG Tot <1 04/06 [facility] IMMUNOLOGY Coronavirus Not Detected Not 04/06 [facility] [place] (COVID-19) (04/06/20 6:31 AM) Nh dical [facility] Center CHEM PANEL Glucose Lvl 119 70 - 99 12/07 [facility] CHEM PANEL BUN 15 7 - 22 12/07 [facility] CHEM PANEL Creatinine 0.92 0.50 - 12/07 [facility] Lvl 1.40 [facility] CHEM PANEL Sodium Lvl 139 135 - 145 12/07 [facility] CHEM PANEL Potassium Lvl 3.4 3.5 - 5.1 12/07 [place] [facility] CHEM PANEL Chloride Lvl 105 95 - 109 12/07 [facility] CHEM PANEL CO2 28 24 - 32 08/ [address] CHEM PANEL Calcium Lvl 9.2 8.5 - 10.5 08 [facility] as [facility] CHEM PANEL AGAP 9.4 10.0 - 08 [facility] 20.0 [facility] CHEM PANEL eGFR 75 08/ [facility] Comment: The Medical eGFR is Center [...] estimated BMI. HEMATOLOGY Segs 79.4 45.0 - 08 [facility] 75.0 [facility] HEMATOLOGY Lymphocytes 16.0 20.0 - 08 [facility] 40.0 [facility] HEMATOLOGY Monocytes 4.3 2.0 - 12.0 / [address] HEMATOLOGY Basophils 0.3 0.0 - 1.0 08/ [address] HEMATOLOGY Neutrophils # 7.4 1.5 - 8.1 12/[address] HEMATOLOGY Lymphocytes # 1.5 1.0 - 5.5 / [address] HEMATOLOGY Monocytes # 0.4 0.0 - 0.8 08/ [facility]2019 [facility] HEMATOLOGY WBC 9.3 3.7 - 10.4 12/[address] HEMATOLOGY RBC 4.33 4.20 - 08/ [place] 5.40 [facility] HEMATOLOGY Hgb 12.6 12.0 - 08/ [facility] 16.0 [facility] HEMATOLOGY Hct 37.3 36.0 - 08/ [facility] 48.0 [facility] HEMATOLOGY MCV 86.2 80.0 - 12/07 [facility] 98.0 [facility] HEMATOLOGY MCH 29.2 27.0 - 08 [facility] 31.0 [facility] HEMATOLOGY MCHC 33.8 32.0 - 08 [facility] 36.0 [facility] HEMATOLOGY RDW 13.8 11.5 - 08 [facility] 14.5 [facility] HEMATOLOGY Platelet 254 133 - [address] HEMATOLOGY MPV 8.0 7.4 - 10.[address] URINE CHEM U Preg Negative Negative 12/07 [facility] (12/07/19 7:14 PM) [address] URINE AND UA Color Yellow Yellow 12/05 [facility] STOOL *NA* /[address] [place] [address] (12/06/19 9:26 AM) [place] URINE AND UA Turbidity Slight Clear 12/05 [facility] *[facility]* [address] (12/06/19 9:26 AM) [place] URINE AND UA Spec Grav 1.009 <=1.030 12/05 [facility] /[address] [place] [address] URINE AND UA pH 7.0 5.0 - 8.0 12/05 [facility] /[address] [place] [address] URINE AND UA Protein Negative Negative 12/05 [facility] mg/dL mg/dL [address] [place] [address] URINE AND UA Glucose Negative Negative 12/05 [facility] mg/dL mg/dL /[address] [place] [address] URINE AND UA Ketones Negative Negative 12/05 [facility] mg/dL mg/dL /[address] [place] [address] URINE AND UA Bili Negative Negative 12/05 [facility] STOOL *NA* [address] [place] [address] (12/06/19 9:26 AM) [place] URINE AND UA Blood Small Negative 12/05 [facility] *ABN* [address] (12/06/19 9:26 AM) [place] URINE AND UA <1.0 0.1 - 1.0 12/05 [facility] Urobilinogen /[address] [place] [address] URINE AND UA Nitrite Negative Negative 12/05 [facility] (12/06/19 9:26 AM) [address] URINE AND UA Leuk Est Large Negative 12/05 [facility] *ABN* [address] (12/06/19 9:26 AM) Center URINE AND UA Sq Epi Occasional Few /LPF 12/05 [facility] STOOL /LPF /[address] [place] [address] URINE AND UA WBC 1 0 - 5 12/[address] URINE AND UA RBC 1 0 - 2 12/[address] URINE AND UA Bacteria Occasional None Seen 12/05 [facility] STOOL /HPF /HPF /[address] [place] [address] IMMUNOLOGY Coronavirus Not Detected Not 12/05 [facility] (COVID-19) (12/06/19 4:39 AM) [facility] Glucose Lvl 128 70 - 99 12/[address] CHEM PANEL BUN 7 7 - 22 12/[address] CHEM PANEL Creatinine 0.92 0.50 - 12/05 [facility] Lvl 1.40 [facility] CHEM PANEL Sodium Lvl 136 135 - 145 12/[address] CHEM PANEL Potassium Lvl 4.7 3.5 - 5.1 12/[address] CHEM PANEL Chloride Lvl 105 95 - 109 12/05 [facility] [address] CHEM PANEL CO2 22 24 - 32 12/[address] CHEM PANEL Calcium Lvl 9.4 8.5 - 10.5 12/[address] CHEM PANEL AGAP 13.7 10.0 - 12/05 [facility] 20.0 [facility] CHEM PANEL eGFR 75 12/05 Result Comment: The Medical eGFR is Center [...] PANEL Lactic Acid 1.1 0.5 - 2.2 [place] HEMATOLOGY WBC X 10x3 4.5 3.7 - 10.4 [place]2020 [facility] HEMATOLOGY RBC X 10x6 4.87 4.20 - 08/ [place] 5.40 /2020 [facility] HEMATOLOGY Hgb 14.4 12.0 - 08/04 [place] 16.0 /2020 [facility] HEMATOLOGY Hct 42.4 36.0 - 08 [place] 48.0 /2020 [facility] HEMATOLOGY MCV 87.0 80.0 - 08 [place] 98.0 /2020 [facility] HEMATOLOGY MCH 29.5 27.0 - 08/ [facility] 31.0 /2019 [facility] HEMATOLOGY MCHC 33.9 32.0 - 08/ [facility] 36.0 /2019 [facility] Center HEMATOLOGY RDW 13.9 11.5 - 08 [facility] 14.5 /2019 [facility] Center HEMATOLOGY Platelet 231 133 - 450 12/05 /2019 [facility] HEMATOLOGY MPV 7.3 7.4 - 10.4 12/05 /2019 [facility] HEMATOLOGY PT 12.1 12.0 - 08 [facility] 14.7 /2019 [facility] Center HEMATOLOGY INR 0.90 0.85 - 12/05 [facility] 1.17 [facility] HEMATOLOGY PTT 26.2 22.9 - 08 [facility] 35.8 2020 [facility] HEMATOLOGY ACT (TEG) 97 86 - 118 12/05 [facility] Rapid /2020 [facility] HEMATOLOGY [place] 0.4 12/05 [facility] Rapid /2020 [facility] Center HEMATOLOGY R-time Rapid 0.5 0.4 - 0.7 12/05 [facility] as [facility] Center HEMATOLOGY K-time Rapid 3.0 0.6 - 2.3 12/05 [facility] as /2019 [facility] Center HEMATOLOGY Angle Rapid 71 64 - 80 12/[address] HEMATOLOGY Max Amplitude 49 52 - 71 12/05 [place] 2020 [facility] HEMATOLOGY G-value Rapid 4.8 5.0 - 11.6 12/05 [place] [facility] HEMATOLOGY Estimated % 0.0 0.0 - 7.5 12/05 [facility] Lysis Rapid 2020 [facility] HEMATOLOGY RBC Morph Normal Normal 12/05 [facility] (12/06/19 2:59 AM) /2019 [facility] HEMATOLOGY Plt Morph Normal Normal 12/05 [facility] (12/06/19 2:59 AM) [facility] HEMATOLOGY Segs 75.9 45.0 - 12/05 [facility] 75.0 [facility] HEMATOLOGY Lymphocytes 21.3 20.0 - 12/05 40.0 [facility] HEMATOLOGY Monocytes 2.3 2.0 - 12.0 12/05 [facility] HEMATOLOGY Eosinophils 0.1 0.0 - 4.0 12/05 [facility] HEMATOLOGY Basophils 0.4 0.0 - 1.0 12/05 [facility] HEMATOLOGY Neutrophils # 3.4 1.5 - 8.1 12/05 [facility] xa [facility] HEMATOLOGY Lymphocytes # 1.0 1.0 - 5.5 12/05 [facility] HEMATOLOGY Monocytes # 0.1 0.0 - 0.8 12/05 [facility] BLOOD BANK ABO/Rh O NEG 12/05 [facility] RESULTS [facility] BLOOD BANK Antibody Scrn Negative 12/05 [facility] RESULTS (12/06/19 2:58 AM) [facility] CHEM PANEL eGFR 96 07/04 Result Comment: [...] Calcium Lvl 8.1 8.5 - 10.5 07/04 [facility] /2015 [facility] CHEM PANEL CO2 26 24 - 32 07/04 [facility] CHEM PANEL Creatinine 0.77 0.50 - 07/04 [facility] Lvl 1.40 /2015 [facility] CHEM PANEL BUN 3 7 - 22 07/04 [facility] CHEM PANEL Potassium Lvl 3.1 3.5 - 5.1 07/04 [facility] CHEM PANEL Sodium Lvl 143 135 - 145 07/04 [facility] CHEM PANEL Glucose Lvl 116 70 - 99 07/04 [facility] CHEM PANEL Chloride Lvl 108 95 - 109 07/04 [facility] CHEM PANEL AGAP 12.1 10.0 - 07/04 20.0 [facility] HEMATOLOGY Plt Morph Normal 07/04 [facility] (07/05/15 3:46 PM) [facility] HEMATOLOGY Tot Cell Ct 100 07/04 [facility] HEMATOLOGY Atypical 0.0 <=0.0 % 07/04 [facility] Lymph [facility] HEMATOLOGY RBC Morph Normal 07/04 [facility] (07/05/15 3:46 PM) [facility] HEMATOLOGY Lymphocytes 40.0 20.0 - 07/04 40.0 [facility] HEMATOLOGY Monocytes 4.0 2.0 - 12.0 07/04 [facility] HEMATOLOGY Segs-Bands # 3.5 1.5 - 8.1 07/04 [facility] HEMATOLOGY Lymphocytes # 2.5 1.0 - 5.5 07/04 [facility] HEMATOLOGY Monocytes # 0.2 0.0 - 0.8 07/04 [facility] HEMATOLOGY Segs 56.0 45.0 - 07/04 75.0 [facility] HEMATOLOGY Bands 0.0 0.0 - 11.0 07/04 [facility] HEMATOLOGY RDW 15.8 11.5 - 07/04 14.5 [facility] HEMATOLOGY MPV 6.9 7.4 - 10.4 07/04 [facility] HEMATOLOGY Platelet 357 133 - 450 07/04 [facility] HEMATOLOGY MCV 83.1 80.0 - 07/04 98.0 [facility] HEMATOLOGY RBC 3.91 4.20 - 07/04 5.40 [facility] HEMATOLOGY WBC 6.2 3.7 - 10.4 07/04 [facility] HEMATOLOGY Hct 32.5 36.0 - 03 [place] 48.0 /2016 [facility] HEMATOLOGY Hgb 10.8 12.0 - 07/04 [place] 16.0 /2015 [facility] HEMATOLOGY MCHC 33.2 32.0 - 07/04 [place] 36.0 /2015 [facility] HEMATOLOGY MCH 27.6 27.0 - 07/04 [place] 31.0 /2015 [facility] URINE AND UA Leuk Est Negative Negative 07/04 [facility] (07/05/15 3:19 PM) /2015 [facility] URINE AND UA Nitrite Negative Negative 07/04 [facility] (07/05/15 3:19 PM) [facility] URINE AND UA 0.2 0.1 - 1.0 07/04 [facility] Urobilinogen /2015 [facility] URINE AND UA Blood Negative Negative 07/04 [facility] (07/05/15 3:19 PM) [facility] URINE AND UA Bili Negative Negative 07/04 [facility] *NA* /2015 [facility] (07/05/15 3:19 PM) [place] URINE AND UA Ketones Negative Negative 07/04 [facility] mg/dL mg/dL /2015 [facility] URINE AND UA Glucose Negative Negative 07/04 [facility] mg/dL mg/dL /2015 [facility] URINE AND UA Protein Negative Negative 07/04 [facility] mg/dL mg/dL /2015 [facility] URINE AND UA pH 7.0 5.0 - 8.0 07/04 [facility] URINE AND UA Spec Grav 1.015 <=1.030 07/04 [facility] URINE AND UA Turbidity Clear Clear 07/04 [facility] (07/05/15 3:19 PM) [facility] URINE AND UA Color Yellow Yellow 07/04 [facility] *NA* [facility] (07/05/15 3:19 PM) [place] URINE AND UA Sq Epi None Seen Few 07/04 [facility] (07/05/15 3:19 PM) [facility] CHEM PANEL eGFR 93 05/27 Result Comment: [...] Potassium Lvl 3.3 3.5 - 5.1 05/27 [facility] CHEM PANEL Sodium Lvl 142 135 - 145 05/27 2015 [facility] CHEM PANEL Creatinine 0.80 0.50 - 05/27 [facility] Lvl 1.40 [facility] CHEM PANEL Calcium Lvl 8.6 8.5 - 10.5 05/27 [facility] CHEM PANEL CO2 27 24 - 32 05/27 2015 [facility] CHEM PANEL AGAP 13.3 10.0 - 05/27 [place] 20.0 [facility] CHEM PANEL Chloride Lvl 105 95 - 109 05/27 [facility] CHEM PANEL Glucose Lvl 93 70 - 99 05/27 2015 [facility] CHEM PANEL BUN 14 7 - 22 05/[address] CHEM PANEL Bili Total 0.3 0.2 - 1.3 05/27 2015 [facility] CHEM PANEL Globulin 3.3 2.0 - 4.0 05/27 [facility] CHEM PANEL Bili Direct 0.1 0.0 - 0.3 05/27 [facility] CHEM PANEL Alk Phos 190 39 - 136 05/27 [facility] CHEM PANEL AST 31 0 - 37 05/27 [facility] CHEM PANEL Albumin Lvl 3.4 3.5 - 5.0 05/27 [facility] CHEM PANEL ALT 112 0 - 65 05/[address] CHEM PANEL Bili Indirect 0.2 0.0 - 1.0 05/27 [facility] CHEM PANEL A/G Ratio 1.0 0.7 - 1.6 05/27 [facility] CHEM PANEL Total Protein 6.7 6.4 - 8.4 05/27 [facility] CHEM PANEL A/G Ratio 0.9 0.7 - 1.6 05/25 [facility] CHEM PANEL Globulin 3.8 2.0 - 4.0 05/25 [facility] CHEM PANEL AGAP 11.1 10.0 - 05/25 [place] 20.0 [facility] CHEM PANEL B/C Ratio 23 6 - 25 05/25 [facility] CHEM PANEL eGFR 105 05/25 Result Comment: The [facility] eGFR is Center calculated using [...] Chloride Lvl 108 95 - 109 05/25 [facility] CHEM PANEL Creatinine 0.71 0.50 - 05/25 [facility] Lvl 1.40 [facility] CHEM PANEL Potassium Lvl 4.1 3.5 - 5.1 05/25 [facility] CHEM PANEL CO2 24 24 - 32 05/25 [facility] CHEM PANEL Sodium Lvl 139 135 - 145 05/25 [facility] CHEM PANEL Albumin Lvl 3.3 3.5 - 5.0 05/25 [facility] CHEM PANEL ALT 187 0 - 65 05/25 [facility] CHEM PANEL AST 50 0 - 37 05/25 [facility] CHEM PANEL Calcium Lvl 8.2 8.5 - 10.5 05/25 [facility] CHEM PANEL Total Protein 7.1 6.4 - 8.4 05/25 [place] [facility] CHEM PANEL Bili Total 0.4 0.2 - 1.3 05/25 [facility] CHEM PANEL Alk Phos 238 39 - 136 05/25 [facility] CHEM PANEL Glucose Lvl 111 70 - 99 05/25 [facility] CHEM PANEL BUN 16 7 - 22 05/25 [facility] HEMATOLOGY Lymphocytes 14.9 20.0 - 05/25 [place] 40.0 [facility] HEMATOLOGY Monocytes 3.4 2.0 - 12.0 05/25 [facility] HEMATOLOGY Eosinophils 0.1 0.0 - 4.0 05/25 a [facility] HEMATOLOGY Basophils 0.2 0.0 - 1.0 05/25 [facility] HEMATOLOGY Lymphocytes # 1.3 1.0 - 5.5 05/25 [facility] HEMATOLOGY Monocytes # 0.3 0.0 - 0.8 05/25 [facility] HEMATOLOGY Segs-Bands # 6.9 1.5 - 8.1 05/25 [facility] HEMATOLOGY Segs 81.4 45.0 - 05/25 [place] 75.0 [facility] HEMATOLOGY RBC 4.66 4.20 - 05/25 [place] 5.40 /2015 [facility] HEMATOLOGY Hct 39.4 36.0 - 05/25 [place] 48.0 [facility] HEMATOLOGY Hgb 13.1 12.0 - 05/25 [place] 16.0 [facility] HEMATOLOGY WBC 8.5 3.7 - 10.4 05/25 [facility] HEMATOLOGY MCHC 33.2 32.0 - 05/25 [place] 36.0 [facility] HEMATOLOGY MCH 28.1 27.0 - 05/25 [place] 31.0 [facility] HEMATOLOGY MCV 84.5 80.0 - 05/25 [place] 98.0 [facility] HEMATOLOGY MPV 7.8 7.4 - 10.4 05/25 [facility] HEMATOLOGY Platelet 328 133 - 450 05/25 [facility] HEMATOLOGY RDW 15.9 11.5 - 05/25 14.5 [facility] CHEM PANEL ALT 266 0 - 65 05/24 [facility] CHEM PANEL A/G Ratio 1.0 0.7 - 1.6 05/24 [facility] CHEM PANEL AST 96 0 - 37 05/24 [facility] CHEM PANEL Calcium Lvl 9.1 8.5 - 10.5 05/24 [facility] CHEM PANEL Alk Phos 289 39 - 136 05/24 [facility] CHEM PANEL Bili Total 0.6 0.2 - 1.3 05/24 [facility] CHEM PANEL eGFR 83 05/24 [facility] Comment: The [facility] eGFR is Center calculated using [...] 7.4 6.4 - 8.4 05/24 [place] [facility] CHEM PANEL B/C Ratio 25 6 - 25 05/24 [facility] CHEM PANEL Albumin Lvl 3.7 3.5 - 5.0 05/24 s [facility] CHEM PANEL AGAP 15.6 10.0 - 05/24 20.0 [facility] CHEM PANEL Globulin 3.7 2.0 - 4.0 05/24 [facility] CHEM PANEL Creatinine 0.87 0.50 - 05/24 [place] Lvl 1.40 /2015 [facility] CHEM PANEL CO2 22 24 - 32 05/24 [facility] CHEM PANEL Chloride Lvl 103 95 - 109 05/24 [facility] CHEM PANEL Potassium Lvl 3.6 3.5 - 5.1 05/24 [facility] CHEM PANEL Sodium Lvl 137 135 - 145 05/24 [facility] CHEM PANEL BUN 22 7 - 22 05/24 [facility] CHEM PANEL Glucose Lvl 140 70 - 99 05/24 [facility] HEMATOLOGY Basophils # 0.1 0.0 - 0.2 05/24 [facility] HEMATOLOGY Segs 81.5 45.0 - 05/24 [place] 75.0 [facility] HEMATOLOGY Monocytes # 0.7 0.0 - 0.8 05/24 [facility] HEMATOLOGY Segs-Bands # 11.3 1.5 - 8.1 05/24 [facility] HEMATOLOGY Basophils 0.5 0.0 - 1.0 05/24 [facility] HEMATOLOGY Lymphocytes # 1.7 1.0 - 5.5 05/24 [facility] HEMATOLOGY Lymphocytes 12.4 20.0 - 05/24 [place] 40.0 [facility] HEMATOLOGY Eosinophils 0.4 0.0 - 4.0 05/24 [facility] HEMATOLOGY Monocytes 5.2 2.0 - 12.0 05/24 [facility] HEMATOLOGY MPV 8.1 7.4 - 10.4 05/24 [facility] HEMATOLOGY WBC 13.9 3.7 - 10.4 05/24 [facility] HEMATOLOGY RDW 15.6 11.5 - 05/24 [place] 14.5 [facility] HEMATOLOGY Platelet 387 133 - 450 05/24 [facility] HEMATOLOGY RBC 5.06 4.20 - 05/24 [place] 5.40 [facility] [place] HEMATOLOGY MCHC 32.2 32.0 - 05/24 [place] 36.0 [facility] HEMATOLOGY MCH 26.5 27.0 - 05/24 [place] 31.0 [facility] HEMATOLOGY Hct 41.6 36.0 - 05/24 [place] 48.0 /2015 [facility] HEMATOLOGY MCV 82.1 80.0 - 05/24 [place] 98.0 /2015 [facility] HEMATOLOGY Hgb 13.4 12.0 - 05/24 [place] 16.0 [facility] [place] HEMATOLOGY RDW 15.5 11.5 - 05/23 [place] 14.5 /2015 Medical Center HEMATOLOGY MCHC 33.2 32.0 - 05/23 [place] 36.0 [facility] HEMATOLOGY MPV 7.7 7.4 - 10.4 05/23 [facility] HEMATOLOGY Platelet 384 133 - 450 05/23 [facility] HEMATOLOGY WBC 11.3 3.7 - 10.4 05/23 [facility] HEMATOLOGY MCV 82.5 80.0 - 05/23 [place] 98.0 /2015 Medical [place] HEMATOLOGY MCH 27.4 27.0 - 05/23 [place] 31.0 [facility] HEMATOLOGY RBC 5.00 4.20 - 05/23 [place] 5.40 /2015 [facility] HEMATOLOGY Hct 41.3 36.0 - 05/23 [place] 48.0 [facility] HEMATOLOGY Hgb 13.7 12.0 - 05/23 [place] 16.0 [facility] HEMATOLOGY Segs-Bands # 7.8 1.5 - 8.1 05/23 [place] [facility] HEMATOLOGY Lymphocytes # 2.5 1.0 - 5.5 05/23 [place] [facility] HEMATOLOGY Segs 67.0 45.0 - 05/23 [place] 75.0 [facility] HEMATOLOGY Monocytes # 0.6 0.0 - 0.8 05/23 [place] [facility] HEMATOLOGY Monocytes 5.0 2.0 - 12.0 05/23 [facility] HEMATOLOGY Myelocytes 3.0 <=0.0 % 05/23 [facility] HEMATOLOGY Metamyelocyte 1.0 0.0 - 1.0 05/23 [place] [facility] HEMATOLOGY RBC Morph Normal 05/23 [facility] (05/23/15 3:17 PM) [facility] [place] HEMATOLOG[facility] Plt Morph Normal 05/23 [facility] (05/23/15 3:17 PM) /2015 [facility] H[facility] Atypical 0.0 <=0.0 % 05/23 [facility] Lymphs [facility] HEMATOLOGY Bands 2.0 0.0 - 11.0 05/23 [facility] HEMATOLOGY Lymphocytes 22.0 20.0 - 05/23 [place] 40.0 [facility] HEMATOLOGY Tot Cell Ct 100 05/23 [facility] CHEM PANEL B/C Ratio 33 6 - 25 05/23 [facility] HEMATOLOGY Basophils 0.5 0.0 - 1.0 05/21 [facility] HEMATOLOGY Basophils # 0.1 0.0 - 0.2 05/21 [facility] HEMATOLOGY Eosinophils 0.3 0.0 - 4.0 05/21 [facility] CHEM PANEL Magnesium Lvl 2.4 1.8 - 2.4 05/15 [facility] CHEM PANEL Phosphorus 1.7 2.5 - 4.5 05/15 [facility] HEMATOLOGY Plt Morph Normal 05/15 [facility] (05/15/15 4:27 AM) [facility] HEMATOLOGY RBC Morph Normal 05/15 [facility] (05/15/15 4:27 AM) /2015 [facility] HEMATOLOGY INR 1.24 0.85 - 05/15 [facility] 1.17 [facility] HEMATOLOGY PT 15.9 12.0 - 05/15 [facility] 14.7 [facility] CHEM PANEL Magnesium Lvl 2.2 1.8 - 2.4 05/14 [facility] CHEM PANEL Phosphorus 2.1 2.5 - 4.5 05/14 [facility] ENDOCRINOLO Cortisol Free <0.03 05/13 Result [facility] Comment: Medical
Adult Center Reference Ranges for Cortisol, Free,
LC/MS/MS:<br/ >
8:00 - 10:00 AM 0.07-0.93 mcg/dL
4:00 - 6:00 PM 0.04-0.45 mcg/dL
10:00 - 11:00 PM 0.04-0.35 mcg/dL
Te st Performed at:
[facility]<br/ >[id number] [facility] [place] [address] Jarad Moran MD, PhD CHEM PANEL Magnesium Lvl 2.2 1.8 - 2.4 05/13 [facility] xa [facility] CHEM PANEL Phosphorus 3.2 2.5 - 4.5 05/13 [facility] HEMATOLOGY PT 17.0 12.0 - 05/13 [place] 14.7 /2015 [facility] HEMATOLOGY PTT 53.3 22.9 - 05/13 [place] 35.8 /2015 [facility] HEMATOLOGY INR 1.35 0.85 - 05/13 [facility] 1.17 [facility] HEMATOLOGY Polychrom slight 05/13 [facility] HEMATOLOGY Hypochrom 1+ None Seen 05/13 [facility] (05/13/15 3:21 AM) /2015 [facility] HEMATOLOGY Anisocyte 1+ None Seen 05/13 [place] *ABN* Medical (05/13/15 3:21 AM) Center HEMATOLOGY Eosinophils # 0.1 0.0 - 0.5 05/12 [place] [facility] DRUG SCREEN U Cannab Scr Negative Negative 05/12 [place] *[place] Medical (05/11/15 6:25 PM) Center DRUG SCREEN U Opiate Scr Negative Negative 05/12 [place] *NA* Medical (05/11/15 6:25 PM) Center DRUG SCREEN U Cocaine Scr Negative Negative 05/12 [place] *NA* Medical (05/11/15 6:25 PM) Center DRUG SCREEN U Phencyc Scr Negative Negative 05/12 [place] *NA* Medical (05/11/15 6:25 PM) Center DRUG SCREEN UDS Note See Note 05/12 [facility] (05/11/15 6:25 PM) Medical Center DRUG SCREEN [place] Positive Negative 05[place]12 [place] *ABN* [place] (05/11/15 6:25 PM) Center DRUG SCREEN U [place] Negative Negative [place]/12 [place] (05/11/15 6:25 PM) Center DRUG SCREEN U [place] Negative Negative 05/12 [place] [facility] (05/11/15 6:25 PM) Center URINE AND UA Sq Epi None Seen 05/12 [facility] STOOL [facility] URINE AND UA RBC <1 0 - 2 05/12 [facility] STOOL [facility] URINE AND UA Mucus Few /LPF None Seen 05/12 [facility] STOOL /LPF /2015 [facility] [place] URINE AND UA WBC 1 0 - 5 05/12 [facility] STOOL /2015 [facility] URINE AND UA Leuk Est Negative Negative 05/12 [facility] STOOL (05/11/15 6:25 PM) /2015 [facility] URINE AND UA pH 6.0 5.0 - 8.0 05/12 [facility] STOOL [facility] URINE AND UA Spec Grav 1.019 <=1.030 05/12 [facility] STOOL [facility] [place] URINE AND UA Nitrite Negative Negative 05/12 [facility] (05/11/15 6:25 PM) /2015 [facility] URINE AND UA Blood Negative Negative 05/12 [facility] (05/11/15 6:25 PM) [facility] URINE AND UA 2.0 0.1 - 1.0 05/12 [facility] Urobilinogen /2015 [facility] URINE AND UA Ketones 60 mg/dL Negative 05/12 [facility] mg/dL [facility] URINE AND UA Bili Negative Negative 05/12 [facility] *NA* /2015 [facility] (05/11/15 6:25 PM) [place] URINE AND UA Protein 20 mg/dL Negative 05/12 [facility] mg/dL [facility] URINE AND UA Glucose Negative Negative 05/12 [facility] mg/dL mg/dL [facility] URINE AND UA Turbidity Clear Clear 05/12 [facility] (05/11/15 6:25 PM) [facility] URINE AND UA Color Yellow Yellow 05/12 [facility] *NA* /2015 [facility] (05/11/15 6:25 PM) [place] URINE CHEM U Preg Negative Negative 05/12 [facility] (05/11/15 6:25 PM) [facility] ENDOCRINOLO Cortisol Free 0.07 05/12 Result [facility] as Comment: Medical
Adult Center Reference Ranges for Cortisol, Free,
LC/MS/MS:<br/ >
8:00 - 10:00 AM 0.07-0.93 mcg/dL
4:00 - 6:00 PM 0.04-0.45 mcg/dL
10:00 - 11:00 PM 0.04-0.35 mcg/dL
Te st Performed at:
[facility]<br/ >[id number] [facility]
[place] [id number] Jarad Moran MD, PhD PARATHYROID Ca Norm WB 1.08 1.05 - 05/12 [place] PROFILE 05.28 [facility] [place] PARATHYROID Ca Ion WB 1.11 . - 05/12 PROFILE 05.28 [facility] TOXICOLOGY [place] Lvl 41 05/12 Result Comment: [facility] Levels:
Drug Dosage Trough (mcg/mL) Peak (mcg/mL)
500 mg BID 3.1 - 10.0 10.0 - 25.0
1000 mg BID 4.9 - 37.1 30.0 - 40.0
1500 mg BID 7.0 - 34.0 36.1 - 70.0

Toxic level not established<b r/>Test Performed at:
[facility], [address] [place] [address]
[place] [address] Som Purvis MD, FCAP HEMATOLOGY Basophils # 0.1 0.0 - 0.2 05/11 a s [facility] HEMATOLOGY Eosinophils # 0.2 0.0 - 0.5 05/11 [place] [facility] TOXICOLOGY Lamotrigine 38.4 4.0 - 18.0 05/10 Result [facility] as Comment: Test Medical Performed Center at:
[facility], [address] [place] [address]
[place] [address] Som Purvis MD, FCAP HEMATOLOGY Eosinophils # 0.2 0.0 - 0.5 05/10 [place] [facility] CHEM PANEL Lactic Acid 0.9 0.5 - 2.2 05/10 [place] [facility] PARATHYROID Ca Norm WB 1.01 1.05 - 05/10 [place] PROFILE 05.28 [facility] [place] PARATHYROID Ca Ion WB 0.98 1.05 - 05/10 [place] PROFILE 05.28 [facility] TOXICOLOGY Lamotrigine 34.2 4.0 - 18.0 05/10 Result [facility] as Comment: Test Medical Performed Center at:
[facility], [address] [place] [address]
[place] [address] Som Purvis MD, [facility]
Crit ical Result(s) called to JERRICA FAUSTOJULI at _05/15/2015 17:38 by_CYTJONA. Read back OK.
Resul t Comment: Test Performed at:
[facility], [address] [place] [address]
[place] [address] Som Purvis MD, AP TOXICOLOGY [place] Lvl 05/10 Result [facility] Comment: [facility] Levels:
Drug Dosage Trough (mcg/mL) Peak (mcg/mL)
500 mg BID 3.1 - 10.0 10.0 - 25.0
1000 mg BID 4.9 - 37.1 30.0 - 40.0
1500 mg BID 7.0 - 34.0 36.1 - 70.0

Toxic level not established<b r/>Test Performed at:
[facility], [address] [place] [address]
[place] [address] Som Purvis MD, [facility] Pathology Reports No Data Provided for This Section Diagnostic Reports Report Value Date Source Chest 1view DX EXAM: XR CHEST 1 VIEW 04/16/2020 [facility] edical DATE: 04/16/2020 3:00 TROUBLE SHOOTING MECHANIC Center INDICATION: - micu, intubated. TECHNIQUE: Chest 1 view FINDINGS: Comparison is made to April 15. Cardiomediastinal silhouette is unchanged. Life support lines and tubes remain in place. There are patchy alveolar op acities in the mid to lower lungs bilaterally, greater on the left. There is associated nodularity. This is mostly seen in the left lower lobe measuring up to 25 mm. There ma y be a lucency associated with this prominent le ft lower lobe nodule. No pleural effusions. IMPRESSION: Patchy and nodular airspace disease in the mid to lower lungs, greater on the left. The most prominent nodule measures 25 mm in the left lower lobe and appears to contain a small lucency such as could b e seen with cavitation. Thes e findings are likely due to aspiration or infection and can be followed for clearing. Chest 1 v for EXAM: XR CHEST 1 VIEW 04/15/2020 [facility] edical Placement DX DATE: 04/15/2020 4:35 AM [address]OUBLE SHOOTING MECHANIC [address] [address] INDICATION: Line Placement - Chest 1 view for li ne placement COMPARISON: 04/14/2020 TECHNIQUE: AP chest. IMPRESSION: There is interval placement of left IJ catheter with its tip projecting over the cavoatrial junction. Other life support lines and tubes are stable. The cardiomediastinal silhouette is normal in size f or technique. Stable patchy opacities in the bilateral lower lobes which may represent aspiration or infection. No pleural effusions. No pneumothorax in this portable radiograph. Osseous structures are unchanged. CONCLUSION: There is interval placement of left IJ catheter with its tip projecting over the cavoatrial junction. Other findings as described above. Chest 1 v for EXAM: XR CHEST 1 VIEW 04/14/2020 [facility] edical Placement DX DATE: 04/14/2020 at 2240 hours C enter INDICATION: ET tube placement COMPARISON: 04/14/2020 at 1815 hours TECHNIQUE: AP chest FINDINGS: Lines, tubes and hardware: E ndotracheal tube tip projects approximately 4 cm above the giovanni. Lungs and pleura: Scattered airspace opacities are again identified in the mid and lower lungs bilaterally, slightly improved at the left lung base. Slight blunting of the bilateral costophrenic sulci is present. No pneumothorax is identified. Heart and mediastinum: The h eart size is normal. The mediastinal contours are normal. Bones and soft tissues: No acute abnormality. IMPRESSION: 1. Interim intubation with endotracheal tube tip projecting 4 cm above the giovanni 2. Persistent mid and lower lung airspace opacities, slightly improved on the left. Remaining opacities most consistent with multifocal pneumonia, with or without aspiration. Chest 1view DX EXAM: XR CHEST 1 VIEW 04/14/2020 [facility] edical DATE: 04/14/2020 6:00 PM [address]OUBLE SHOOTING MECHANIC [place] [facility] INDICATION: - worsening respiratory function COMPARISON: 04/14/2020 TECHNIQUE: AP chest. IMPRESSION: Right-sided IVP shunt remain s position. The cardiomediastinal silhouette is normal in size for technique. Stable patchy opacities in the bilateral lower lobes which may represent aspiration or infection . No pleural effusions. No p neumothorax in this portable radiograph. Osseous structures are unchanged. CONCLUSION: No significant change compared to the most recen t radiograph. Brain wo contrast CT EXAM: CT HEAD WITHOUT CONTRAST 04/14/2020 [facility] DATE: 04/14/2020 4:08 PM [employer]OUBLE SHOOTING MECHANIC [place] [address] INDICATION: 44 years old Fem fredo patient with history of - hx of recurrent meningiomas, now more sleepy and not as responsive. TECHNIQUE: Multiple axial im ages were obtained through the head from vertex to the skull base. Axial bone algorithm reconstruction images are provided. COMPARISON: CT head 04/10/2020 FINDINGS: No acute intracranial hemorr renetta is identified. Postoperative changes of the bilateral craniotomy and cranioplasty are again noted. A right temporal approach ventricular shunt catheter terminating in th e region of the midbrain, un changed in position. Extensive multiple meningiomatosis are again noted. The largest meningioma is seen in the right middle cranial fossa. Large areas of adjacent vasogenic e kenton are noted in the right frontal and bilateral temporal lobes. Areas of encephalomalacia are again noted in the superior bilateral frontal lobes, left greater than right persistent 0.6 cm midline mika ft. Partial effacement of th e right lateral ventricle is unchanged. Symmetric enlargement of the left lateral ventricle concerning for ventricular entrapment.. The ventricles are unchanged in size. IMPRESSION: 1. Findings of meningiomato sis with multiple partially calcified meningiomas overlying bilateral cerebral hemispheres and posterior fossa, unchanged compared to prior exam. Adjacent areas of vasogenic edema an areas of encephalom alacia, as detailed above. If there is persistent clinical concern, MRI would be helpful for better evaluation 2. Persistent 0.6 cm midline shift. The ventric les are unchanged in size. Chest 1view DX EXAM: XR CHEST 1 VIEW 04/14/2020 [facility] edical DATE: 04/14/2020 5:35 AM [address] SHOOTING MECHAN[employer] [address] [address] INDICATION: - increased O2 requirement COMPARISON: 04/13/2020 TECHNIQUE: AP chest. IMPRESSION: Right-sided IVP shunt remain s position. The cardiomediastinal silhouette is normal in size for technique. Interval improvement of patchy opacities in the bilateral lower lobes which may represent aspira tion or infection. No pleura l effusions. No pneumothorax in this portable radiograph. Osseous structures are unchanged. CONCLUSION: Interval improvement of patc hy opacities in the bilateral lower lobes which may represent aspiration or infection. Chest 1view DX EXAM: XR CHEST 1 VIEW 04/13/2020 [facility] edical DATE: 04/13/2020 3:00 AM [address]OUBLE SHOOTING MECHANIC [address] [address] INDICATION: aspiration pna evaluation - aspirati on pna evaluation COMPARISON: Chest x-ray dated 04/12/2020 TECHNIQUE: AP chest IMPRESSION: 1. Interval removal of the e ndotracheal tube and gastric suction tube. DECAL DECORATOR shunt catheter superimposing over the right thoracoabdominal wall. Telemetry wires superimposing over the chest. 2. Bilateral patchy airspace opacities more prominent in the mid and lower lung zones are similar to prior study or aspiration. No definite pleural effusion. No pneumothorax within the limitation of portable radiograph. 3. Cardiomediastinal silhouette is normal in siz e and contour. 4. No acute osseous abnormality. Chest 1view DX EXAM: XR CHEST 1 VIEW 04/11/2020 [facility] edical DATE: 04/11/2020 8:02 AM TROUBLE SHOOTING MECHANIC [facility] INDICATION: - aspiration pneumonia COMPARISON: Chest x-ray dated 04/10/2020 TECHNIQUE: AP chest IMPRESSION: 1. Life support lines and tubes are all stable. 2. Hyperinflation of the lakshmi gs likely consistent with underlying chronic obstructive pulmonary disease. Bilateral patchy airspace opacities in the lower lung zones appears to be slightly more prominent than prior study and concern ing for progressing aspiration pneumonia. Bilateral trace pleural effusion cannot be excluded. No pneumothorax within the limitation of semierect study. 3. Cardiomediastinal silhoue tte is normal in size and contour. Atherosclerotic calcifications are seen in the aortic arch. 4. No acute osseous abnormality. Chest 1view DX EXAM: XR CHEST 1 VIEW 04/11/2020 [facility] edical DATE: 04/12/2020 3:00 TROUBLE SHOOTING MECHANIC Center INDICATION: - Cardiomyopathy. TECHNIQUE: Chest 1 view FINDINGS: Comparison is made to April 11. Cardiomediastinal silhouette is unchanged. Life support lines and tubes remain in place. There are patchy alveolar op acities in the bilateral lower lobes extending towards the linus, greater on the left. IMPRESSION: Patchy opacities in the bilateral lower lobes extending to the linus and greater on the left. This could be due to aspiration or infection. Brain wo contrast CT EXAM: CT HEAD WITHOUT CONTRAST. 04/10/2020 [facility] DATE: 04/10/2020 1:25 TROUBLE SHOOTING MECHANIC Center INDICATION: Reevaluation of multiple intracrania l meningiomas. COMPARISON: Noncontrast head CT done on 0 and 01/27/2020. TECHNIQUE: Axial volumetric CT images of the head were obtained. Reconstructions are available. IV contrast: None. DLP: 837 mGy-cm FINDINGS: The evaluation has not signi ficantly changed compared to the immediate prior head CT done on 04/09/2020. Extensive meningiomatosis is seen and the larger meningiomas are noted along the floor of middle c ranial fossa. Surgical hunt es from bilateral frontal parietal temporal craniotomy are noted. The right temporal shunt cat heter is in stable position and ends in the midbrain. There is stable mild lateral and third ventriculomegaly. This has increased compared to the CT done in January 2020. Stable vasogenic edema is noted in the right fro ntotemporal lobe. IMPRESSION: The evaluation is unchanged compared to the immediate prior study done on 04/09/2020. Extensive meningiomatosis with the larger meningiomas along the floor of the middle cranial fossa. There is mild lef t lateral and third ventricu lar prominence in this patient with a right temporal shunt catheter extending into the midbrain. Abdomen AP DX EXAM: XR ABDOMEN 1 VIEW 04/10/2020 [facility] DATE: 04/10/2020 10:43 TROUBLE SHOOTING MECHANIC Center INDICATION: - ngt placement ADDITIONAL INFORMATION: None. COMPARISON: None. TECHNIQUE: Limited AP view of the abdomen for tube placement assessment. Number of images: 1 FINDINGS: Transesophageal feeding tube: None Transesophageal suction tube : Side port and tip overlie the gastric body and antrum respectively. Other tubes, lines and hardware: None. Bilateral lower lung zone airspace opacities may represent infection. IMPRESSION: 1. Tube positions as above. Chest 1view DX EXAM: XR CHEST 1 VIEW 04/10/2020 [facility] DATE: 04/10/2020 10:20 AM TROUBLE SHOOTING MECHANIC [facility] INDICATION: - pna COMPARISON: April 10, 2020 at 0049 hours TECHNIQUE: AP chest IMPRESSION: 1. Lines and tubes are stable compared to previ ous study. 2. Hyperinflation of both l ungs suggestive of underlying COPD. Patchy airspace opacities are seen in the lower lung zones bilaterally suggestive of sequela to aspiration or infectious process. Findings have slightly improved compared to previous abhishek dy. 3. Cardiomediastinal silhouette is normal for t echnique. 4. Costophrenic sulci are sharp. 5. Osseous structures are stable. Brain shunt series DX EXAM: SKULL 2 VIEWS 04/10/2020 [facility] Medical EXAM: CHEST 2 VIEWS Center EXAM: ABDOMEN 2 VIEWS DATE: 04/10/2020 1:17 TROUBLE SHOOTING MECHANIC INDICATION: - eval shunt COMPARISON: CT brain Decembe 2019, chest radiograph April 10, 2020, skull radiograph January 27, 2020. TECHNIQUE: AP and lateral views of the skull, ch est and abdomen. FINDINGS: A right posterior approach ventricular peritoneal shunt is present, with the proximal limb near midline and distal limb in the midline lower abdomen. The portion of the shunt catheter that tra verses the calvarium is not well seen by radiograph. When compared to prior brain CT, the shunt tubing appears to make an acute turn as it exits from the calvarium into the scalp, although this position ing is unchanged compared to multiple prior head CTs. A delta valve system is in place. Unchanged positioning of the endotracheal tube with tip 3.4 cm from the giovanni and enteric tube with tip in the stomach. A right neck IV is again seen. A left femoral central line is in place with tip overlying the left sacrum. Diffuse interstitial thicken ing and patchy airspace opacities in the mid to lower lungs, not significantly changed. Bowel gas pattern is unremarkable with scattered air-filled loops of bowel. Extensive postsurgical hunt es of the skull with multiple defects from prior craniotomies. Levo scoliosis of the thoracolumbar spine. A calcification projects over the right ilium. IMPRESSION: 1. Visualized portions of t he ventriculoperitoneal shunt are intact. When compared to multiple prior brain CTs, the shunt makes an acute turn as it exits the calvarium, although this positioning is unchanged. 2. Multifocal bilateral pul monary opacities in the mid to lower lungs, not significantly changed. Chest 1view DX EXAM: XR CHEST 1 VIEW 04/09/2020 [facility] edical DATE: 04/10/2020 at 0049 hours Ce nter INDICATION: - Undifferentiated Sepsis COMPARISON: Chest radiograph 04/09/2020, 020 TECHNIQUE: AP chest. FINDINGS: Lines, tubes and hardware: T he endotracheal tip projects approximately 3.5 cm above the giovanni. The gastric tube tip projects outside the [id number]. A DECAL DECORATOR shunt projects over the right hemithorax and extends outside the [id number]. Lungs and pleura: Pulmonary vascularity is normal. Bilateral perihilar and bibasilar interstitial and alveolar opacities are again seen. Slight blunting of left costophrenic sulcus is noted. The right costophrenic sulcus is sharp . No pneumothorax is identified on this semiupright radiograph. Heart and mediastinum: The h eart size is normal. The thoracic aorta is tortuous. Bones and soft tissues: Regional skeleton is unc hanged. IMPRESSION: 1. Bilateral perihilar and bibasilar interstitial and alveolar opacities are seen in a pattern concerning for diffuse edema,, hemorrhage or pneumonia, aspiration or otherwise . 2. Trace left pleural effusion. 3. Endotracheal tube is in place with tip measu red 3.5 cm above giovanni. 4. Gastric drainage tube is in place with port and tip traveling below the level of left diaphragm and moving beyond the image border. [place] SECTION: ER Brain-Outside Consult EXAM: CT HEAD WITHOUT CONTRAST 04/09/[address] [facility] [address] DATE: Study was performed at outside hospital on 04/09/2020 at 8:32 PM and submitted for 2nd interpretation on 04/10/2020 12:52 AM TROUBLE SHOOTING MECHANIC Center INDICATION: 44 years old Fem fredo patient with provided clinical indication of multifocal grade 2 meningioma, outside study. TECHNIQUE: Outside hospital noncontrast CT Scan of the head was submitted for 2nd opinion/interpretation. Multiple axial images were obtained through the head from vertex to the skull base. Axial bone a lgorithm reconstruction images were not provided . COMPARISON: MRI of the brain dated 04/06/2020 FINDINGS: Since prior MRI dated 2019, no interval significant change in patient's known multifocal extensive meningioma, largest one within the right middle cranial fossa and surrounding vasogenic edema resulted in mass effec t over the right posterior lateral ventricle and 6 to 7 mm [id number] midline shift. Previously seen area of ence phalomalacia within bilateral frontal, left temporal lobes have not significantly changed from prior exam. Stable position of the poste rior approach DECAL DECORATOR shunt with distal tip located adjacent to the midbrain. Ventricles are stable in size and position. Again seen are multiple defects from prior crani otomies. IMPRESSION: 1. No interval significant c hange since prior MRI of the brain with contrast dated 04/06/2020. 2. Grossly unchanged extensi ve intracranial meningiomas with largest one within the right middle cranial fossa with associated surrounding vasogenic edema over the right posterior lateral ventricle resulted in 6 to 7 mm [id number] midline shift. 3. Stable left lateral ventricular enlargement. Brain w contrast MRI EXAM: MRI BRAIN WITH CONTRAST 04/06/2020 [facility] DATE: 04/06/2020 09:50 TROUBLE SHOOTING MECHANIC Center INDICATION: '- Gamma Knife with GA'. [...] MRI EXAM: MRI BRAIN WITHOUT CONTRAST 0 [facility] DATE: 01/27/2020 11:49 CDT INDICATION: 44-year-old fema [...] DX EXAM: XR SKULL 1 VIEW 01/27/2020 [facility] edical DATE: 01/27/2020 at 0813 hours C [...] CT EXAM: CT BRAIN WITHOUT CONTRAST 01/27/2020 [facility] DATE: 01/27/2020 7:24 AM CDT [facility] INDICATION: - Gamma Knife COMPARISON: MRI [...] EXAM: MRI BRAIN WITH AND WITHOUT CONTRAST [facility] MRI DATE: 12/06/2019 4:38 CDT [...] lobe. Unchanged position of right posterior approach DECAL DECORATOR shunt, with tip in the left aspect [...] BRAIN WITH AND WITHOUT CONTRAST 0 12/09/2019 [facility] DATE: 12/06/2019 4:38 CDT Center INDICATION: Multiple [...] lobe. Unchanged position of right posterior approach DECAL DECORATOR shunt, with tip in the left aspect [...] DX EXAM: XR SKULL 2 VIEWS 12/07/2019 [facility] DATE: 12/07/2019 11:49 T Center INDICATION: - shunt evaluation COMPARISON: Skull [...] DX EXAM: XR SKULL 2 VIEWS 12/06/2019 [facility] DATE: 12/06/2019 10:11 CDT Center INDICATION: - pre mri vp publisher development shunt eval COMPARISON: CT brain 12/05/2019. TECHNIQUE: [...] CT CERVICAL SPINE WITHOUT CONTRAST 0 12/05/[address] [facility] [address] DATE: 12/05/2019 [address] INDICATION: -Fall following trauma transfer for higher level of care request for outside film interpretation CT cervical spine without contrast [facility] COMPARISON: Magnetic resonance imaging of the [...] Consult EXAM: CT HEAD WITHOUT CONTRAST 12/05/[address] [facility] [address] DATE: Study was performed at outside hospital [...] changed from prior exam. Right posterior approach DECAL DECORATOR shunt is seen within the right lateral [...] from prior exam. 3. Right posterior approach DECAL DECORATOR shunt is seen within the right lateral ventricle. 4. Again seen are multiple defects from prior craniotomies and likely trauma. These findings are in agreem ent with previous preliminary report made by catering operations manager presidential support specialist. Brain-Outside Consult EXAM: CT BRAIN WITHOUT CONTRAST 07/05/[address] [facility] [address] DATE: 07/05/2015 Center INDICATION: [...] series DX EXAM: FOOT 3 VIEWS 05/25/2015 [facility] DATE: Order Observation End Time: May 25, [...] DX EXAM: XR ABDOMEN 2 views 05/25/2015 [facility] DATE: 05/23/2015 at 16: 57. INDICATION: G-tube confirmation. ADDITIONAL INFORMATION: None. COMPARISON: 05/13/2015. TECHNIQUE: Supine films of the upper abdomen before and after injection of contrast via G-tube FINDINGS: Poker In film shows a shunt tub e is [...] EXAM: XR RIGHT ELBOW 3 VIEWS 05/24/2015 [facility] Medical EXAM: XR RIGHT FOREARM 2 VIEWS [...] EXAM: XR RIGHT ELBOW 3 VIEWS 05/24/2015 [facility] EXAM: XR RIGHT FOREARM 2 [...] EXAM: XR RIGHT ELBOW 3 VIEWS 05/24/2015 [facility] EXAM: XR RIGHT FOREARM 2 [...] ABDOMEN AND PELVIS WITHOUT CONTRAS T 05/23/2015 [facility] CT Center DATE: 05/23/2015 at 2109 INDICATION: [...] spine with and w ithout contrast. 05/16/2015 [facility] MRI Center DATE: 05/16/2015. INDICATION: Meningiomatosis. DISCUSSION: [...] BILATERAL LOWER EXTREMITY VENOUS DOPPL ER 05/15/2015 [facility] Doppler Bilat Center DATE: 05/15/2015. INDICATION: Lower extremity pain. [...] EXAM: FLUOROSCOPY MODIFIED BARIUM SWALLOW 0 05/14/2015 [facility] video DX Center DATE: 05/14/2015 at 1117 [...] penetration and silent aspiration observed during swallow. [place] barium with spoon: Th e oral and [...] DX EXAM: XR ABDOMEN 1 VIEW 05/13/2015 [facility] DATE: 05/13/2014 at 1425 hours. INDICATION: Tube placement/removal/reposition. ADDITIONAL INFORMATION: None. COMPARISON: 05/12/2014 at 1928 hours. TECHNIQUE: Limited radiogra phy of the abdomen performed. One frontal radiograph provided for interpretation. FINDINGS: Transesophageal feeding tube with guidewire has its tip in the pyloroduodenal junction. DECAL DECORATOR shunt is unchanged. No other significant changes. IMPRESSION: 1. Tube positions as above. Interpreted by Brian Jordan MD. Abdomen AP DX Exam: Abdomen x-ray. 05/12/2015 [facility] Center DATE: 05/12/2015. INDICATIONS: Tube placement. FINDINGS: IMPRESSION: A Dobbhoff tube is seen with tip overlying the second portion of the duodenum. Brain w/wo contrast EXAMINATION: MRI brain with and without contrast. 05/11/2015 [facility] DATE: 05/11/2015. INDICATION: Meningiomatosis. Weakness. DISCUSSION: Multiplanar MRI imaging of refugio merchant brain is performed both before and after [...] CT EXAMINATION: CT head without contrast. 12/2015 [facility] DATE: 05/11/2015. INDICATION: Weakness. DISCUSSION: Noncontrast images [...] HIP 2 VIEWS AND AP PELVIS 2015 [facility] DATE: May 10, 2015 01:25:00 PM INDICATION: [...] of the pubic symphysis or sacroiliac joints. DECAL DECORATOR shunt tubing overlies the pelvis. IMPRESSION: No bony abnormality identified. Hip 2 views DX EXAM: BILATERAL HIP 2 VIEWS AND AP PELVIS 2015 [facility] DATE: May 10, 2015 01:25:00 PM INDICATION: [...] of the pubic symphysis or sacroiliac joints. DECAL DECORATOR shunt tubing overlies the pelvis. IMPRESSION: No bony abnormality identified. Consultation Notes No Data Provided for This Section Discharge Summaries No Data Provided for This Section History and Physicals No Data Provided for This Section Vital Signs Vital Sign Value Date Comments Source Systolic (mm Hg) 114 04/19/2020 [facility] Center Diastolic (mm Hg) 68 04/19/2020 [facility] Center Respitory Rate 17 04/19/2020 [facility] Center Respitory Rate 18 04/19/2020 [facility] Systolic (mm Hg) 132 04/19/2020 [facility] Center Diastolic (mm Hg) 73 04/19/2020 [facility] Respitory Rate 18 04/19/2020 [facility] Systolic (mm Hg) 100 04/19/2020 [facility] [place] Diastolic (mm Hg) 65 04/19/2020 [facility] Heart Rate 97 04/18/2020 [facility] Center Height 157.48 cm 04/16/2020 [facility] Center Height 157.48 cm 04/16/2020 [facility] Height 157.48 cm 04/16/[facility] Respitory Rate 26 04/16/2020 [facility] Respitory Rate 23 04/16/2020 [facility] Height 157.48 cm 04/16/[facility] Respitory Rate 24 04/16/2020 [facility] Height 157.48 cm 04/16/[facility] Height 157.48 cm 04/15/[facility] Systolic (mm Hg) 97 04/15/2020 [facility] Diastolic (mm Hg) 61 04/15/[facility] Systolic (mm Hg) 119 04/15/2020 [facility] Diastolic (mm Hg) 62 04/15/[facility] Systolic (mm Hg) 87 04/15/2020 [facility] Diastolic (mm Hg) 53 04/15/[facility] Weight 70 04/10/[facility] BMI Calculated 28.23 04/10/2020 [facility] Heart Rate 89 04/10/2020 [facility] Heart Rate 91 04/10/2020 [facility] Respitory Rate 21 04/07/2020 [facility] Systolic (mm Hg) 101 04/07/2020 [facility] Diastolic (mm Hg) 59 04/07/2020 [facility] Respitory Rate 24 04/07/2020 [facility] Systolic (mm Hg) 103 04/07/2020 [facility] Diastolic (mm Hg) 57 04/07/2020 [facility] Respitory Rate 13 04/07/2020 [facility] Systolic (mm Hg) 107 04/07/2020 [facility] Diastolic (mm Hg) 55 04/07/2020 [facility] ed[facility] Center Heart Rate 77 04/06/2020 [facility] Height 170.18 cm 04/04/2020 [facility] Weight 79.545 04/04/2020 [facility] BMI Calculated 27.47 04/04/2020 [facility] Respitory Rate 17 12/09/2019 [facility] Systolic (mm Hg) 96 12/09/2019 [facility] Center Diastolic (mm Hg) 59 12/09/2019 [facility] ed[facility] Center Respitory Rate 17 12/09/2019 [facility] Center Systolic (mm Hg) 97 12/09/2019 [facility] Center Diastolic (mm Hg) 56 12/09/2019 [facility] Center Respitory Rate 21 12/09/2019 [facility] mesha Center Systolic (mm Hg) 127 12/09/2019 [facility] Center Diastolic (mm Hg) 70 12/09/2019 [facility] Center Temperature Oral (F) 97.8 F 12/06/2019 [facility] Temperature Oral (F) 98 F 12/06/2019 [facility] Height 167.64 cm 12/06/2019 [facility] [place] BMI Calculated 22.64 12/06/2019 [facility] Weight 63.636 12/06/2019 [facility] Heart Rate 73 12/06/2019 [facility] Systolic (mm Hg) 100 07/06/2015 [facility] d[facility] Center Diastolic (mm Hg) 59 07/06/2015 [facility] ed[facility] Center Respitory Rate 18 07/06/2015 [facility] Center Respitory Rate 18 07/06/2015 [facility] Center Systolic (mm Hg) 104 07/06/2015 [facility] Center Diastolic (mm Hg) 70 07/06/2015 [facility] Temperature Oral (F) 97.4 F 07/05/2015 [facility] Systolic (mm Hg) 105 07/05/2015 [facility] Center Diastolic (mm Hg) 60 07/05/2015 [facility] ed[facility] Center Temperature Oral (F) 97.8 F 07/05/2015 [facility] Center Respitory Rate 18 07/05/2015 [facility] mesha Center Heart Rate 84 07/05/2015 [facility] Heart Rate 73 05/28/2015 [facility] Temperature Oral (F) 99.5 F 05/28/2015 [facility] Center Systolic (mm Hg) 93 05/28/2015 [facility] Center Diastolic (mm Hg) 55 05/28/2015 [facility] ed[facility] Center Respitory Rate 18 05/28/2015 [facility] Heart Rate 52 05/28/2015 [facility] Systolic (mm Hg) 101 05/28/2015 [facility] Center Diastolic (mm Hg) 54 05/28/2015 [facility] Respitory Rate 17 05/28/2015 [facility] Temperature Oral (F) 97.4 F 05/28/2015 [facility] Respitory Rate 18 05/28/2015 [facility] Heart Rate 54 05/28/2015 [facility] Center Systolic (mm Hg) 98 05/28/2015 [facility] Di[facility] (mm Hg) 59 05/28/2015 [facility] Temperature Oral (F) 97.9 F 05/28/2015 [facility] Weight 76.818 05/10/2015 [facility] Height 165.1 cm 05/09/2015 [facility] Weight 81.818 05/09/2015 [facility] BMI Calculated 30.02 05/09/2015 [facility] Encounters Location Location Encounter Encounter Reason Attending ADM DC Stat us Source Details Type Number For Provider Date Date Visit [facility] [id number] Anmol 05/09 05/28 [facility] Kaci /2015 [facility] [place] [id number] Vilma 07/04 07/05 [facility] Emergency [place] /2015 [facility] Outpatient [id number] [facility]/25 [facility] [place] [facility]note 2] Inpatient [id number] Ciarra 12/05 12/09 [facility] Thuan /2019 [facility] Outpatient [id number] David 01/17 01/18 [facility] Radiation Velma /2019 [facility] [place] [facility] Day Surgery [id number] Titus 04/06 04/07 [facility] Julia /2019 [facility] Inpatient [id number] Carmencita Kraush 04/10 04/19 [facility] /2019 [facility] Procedures Procedure Code Date Perfomer Comments Source Arterial [id number] 04/15/2020 [facility] catheterization or [facility] cannulation for Center sampling, monitoring or transfusion (separate procedure); percutaneous Intubation, 80141 04/15/2020 [facility] endotracheal, Medical emergency procedure Cente r Bronchoscopy, rigid 74802 04/15/2020 [place] or flexible, Medical including Center fluoroscopic guidance, when performed; with bronchial alveolar lavage Craniotomy [id number] 05/04/1999 [facility] Biopsy of breast [id number] [facility] Creation of DECAL DECORATOR shunt [id number] [facility] Excision of ovary [id number] [facility] Stereotactic focused [id number] [facility] gamma radiosurgery of Med ical cerebrum Center Assessment and Plan Assessment and Plan Date Source Extracted from:Title: Progress Note 04/19/2020 [facility] Author: Tavia Mckeon (Fellow) Date: 04/19/20 Ms. 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 Goals of Care/Palliative: - Pt transitioned off the vent and going home today. - Hospice organized, and ready for discharge today this am -Performed education on sleep wake cycles and minimizing ri sk of delirium. -Performed education on bolus tube feeds. Supportive Medicine makes the following recommendations for Comfort Measures when family is ready. These orders can be easily accessed via the Comfort Care MPP: Respiratory failure: -Pt comfortable on RA at this time. O2 if needed Pain: - Recommend morphine 4mg IVP q4 hr EVON. - Recommend morphine 2mg IVP q1 hr PRN. Dyspnea: - As opioids alleviate dyspnea and air hunger in palliative patients, will recommend pain regimen as noted above. Anxiety, agitation: - Recommend Ativan 1mg IVP q4 hrs PRN. Terminal delirium: - Recommend Haldol 0.5mg q2 hrs PRN. Pulmonary congestion: - Recommend glycopyrrolate 0.4mg IV q6 hrs. Autonomic dysfunction/fever: - Recommend Tylenol 650mg PEG q6 hrs PRN. Constipation: - Recommend bisacodyl 10mg NC daily PRN. Spiritual support: - Saw patient with Director Of Application Development today. Thank you for the opportunity to parti cipate in the care of this patient.For any questions or concerns, please page us via the page solvent plant operator or via the pager below. Tavia Mckeon M.D.| #[phone] Palliative Care Fellow Division of Geriatric and Palliative Medicine Department of Internal Medicine [employer]| [phone] Psychologist Counseling| #[phone] Division of Gynecologic Oncology Department of Obstetrics, Gynecology and Reproductive Scien [facility] Office and Answering Service [phone] | Pager [phone] | Acute hypoxemic respiratory failure(J96.01) Agitation(R45.1) Altered mental status(R41.82), Altered mental status(R41.8 2) Anxiety(F41.9) Cerebral meningioma(D32.0) Constipation(K59.00) Constipation due to opioid therapy(K59.03) Convulsive seizure(R56.9) Delirium(R41.0) Dyspnea(R06.00) Fever(R50.9) Goals of care, counseling/discussion(Z71.89) Hypoxic(R09.02) Meningioma(D32.9) Midline shift of brain(R90.89) Pain, unspecified(R52) Palliative care by specialist(Z51.5) Pulmonary congestion(R09.89) Extracted from:Title: Supportive Medicine Consult Note Author: Colette Kennedy Date: 04/15/20 Ms. 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 Overnight, pt required re- intubation for airway protection and hypoxia. Supportive Medicine was consulted to as sist w/ goals of care in the setting of possible tracheostomy. Goals of Care/Palliative: - Full code - Spoke w/ pt's sister/guardian, Grace corley, by phone. She is able to express a good understanding of pt's medical problems and current options. She reports that pt'squality of life saul s changed drastically since her first ga mma knife procedure in Jan 2020. Prior to gamma knife, pt was able to talk; can hear some w/ hearing aids at baseline. She states that pt basically just sits, sh e has not been walking or talking as she had in the past. She also reports a slowerdecline over the past2 yrs. She notes pt was having difficulty swallowing since end of Nov and they were having to give pt liquid foods/soups. Discussed aspira tion and possible trach. Explained that trach will not completely alleviate risk of aspiration PNA and will not improve pt's neurological status or quality o f life. Reviewed option of comfort measu res,withdrawal of life-sustaining support, and possible hospice w/ intent to allow for a natural and dignified . Pt's sister is hesitant to proceed w/ t luiz if it would not improve pt's qualit y of life. She would like to discuss this w/ her mother and siblings first though before making a decision. All questions answered. - MICU team updated Advance Care Planning: - Pt is unable to demonstrate capacity t o make complex medical decisions at this time and requires a surrogate decision maker. Surrogate medical decision maker(s): pt's sister, Grace Acosta, state s she is legal guardian and has paperwor k. She states hospital should have a copy. Explained that there is not a copy in pt's EMR. Requested she provide a copy to us during this admission. Pain: - Current IV Fentanyl infusion is reasonable. -Parenteral opioids are considered a hig h risk management option; close monitoring for neurotoxicity is advised. Dyspnea: - As opioids are alleviating in palliati ve patients, Fentanyl regimen as above may be helpful symptomatically. Constipation: - Last bowel movement 12/12. -Recommend aggressive bowel regimen in the setting of opioid use: - Recommend Senna 1 tablet PO BID. - Can titrate Senna up to 4 tablets PO BID. - Recommend 17 g Miralax PO qd - Can also consider Bisacodyl suppository daily PRN constipa tion - Goal of one soft stool every 1-2 days. Thank you for the opportunity to partici west in the care of this patient.We will follow along with you. For any questions or concerns, please page us via the page solvent plant operator or via the pager below. Colette Kennedy PA-C Supportive Medicine Physician Room Service Attendant [place] Supportive Medicine Pager: #[phone] Extracted from:Title: MICU History and Physical Author: Arcadio Barcenas Date: 04/10/20 NEURO: # hx of recurrent meningiomas s/p DECAL DECORATOR marie nt, craniotomy, and gamma knife radiosurgery - continue with dex 6mg IV Q6H - CT head - NSGY following - Versed d/c'd - Continue with fentanyl drip CV: # Septic shock # Hypotensive - continue with levophed - BNP 1275 - TTE pending - 2L isolyte given in ED - LR 250 fluid challenge RESP: # Acute hypoxic respiratory failure # Aspiration pneumonia - continue with mechanical ventilation for now - rpt CXR GI: - KUB to confirm NG tube - Start tube feeds - famotidine - bowel regimen RENAL: # Lactic acidosis # Hypokalemia # Hypocalcemia -IV fluids as tolerated -Will replete potassium and calcium ID: # Aspiration pneumonia - lactic acid 3.9 and procal 12.3 - vanc, cefepime and flagyl - send fungal cultures HEME/ONC: -monitor ENDO: - TSH QUALITY: Lines/tubes/drain: L radial art line, R fem central line, fo lincoln catheter DVT ppx: SCD GI ppx: famotidine Code: Full Altered mental status(R41.82) Hypoxic(R09.02) Meningioma(D32.9) Septic shock(R65.21) Extracted from:Title: Supportive Medicine Consult Note 04/16 [facility] Author: Colette Kennedy Date: 04/15/20 Ms. 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 Overnight, pt required re- intubation for airway protection and hypoxia. Supportive Medicine was consulted to as sist w/ goals of care in the setting of possible tracheostomy. Goals of Care/Palliative: - Full code - Spoke w/ pt's sister/guardian, Grace corley, by phone. She is able to express a good understanding of pt's medical problems and current options. She reports that pt'squality of life saul s changed drastically since her first ga mma knife procedure in Jan 2020. Prior to gamma knife, pt was able to talk; can hear some w/ hearing aids at baseline. She states that pt basically just sits, sh e has not been walking or talking as she had in the past. She also reports a slowerdecline over the past2 yrs. She notes pt was having difficulty swallowing since end of Nov and they were having to give pt liquid foods/soups. Discussed aspira tion and possible trach. Explained that trach will not completely alleviate risk of aspiration PNA and will not improve pt's neurological status or quality o f life. Reviewed option of comfort measu res,withdrawal of life-sustaining support, and possible hospice w/ intent to allow for a natural and dignified . Pt's sister is hesitant to proceed w/ t luiz if it would not improve pt's qualit y of life. She would like to discuss this w/ her mother and siblings first though before making a decision. All questions answered. - MICU team updated Advance Care Planning: - Pt is unable to demonstrate capacity t o make complex medical decisions at this time and requires a surrogate decision maker. Surrogate medical decision maker(s): pt's sister, Grace Acosta, state s she is legal guardian and has paperwor k. She states hospital should have a copy. Explained that there is not a copy in pt's EMR. Requested she provide a copy to us during this admission. Pain: - Current IV Fentanyl infusion is reasonable. -Parenteral opioids are considered a hig h risk management option; close monitoring for neurotoxicity is advised. Dyspnea: - As opioids are alleviating in palliati ve patients, Fentanyl regimen as above may be helpful symptomatically. Constipation: - Last bowel movement 12/12. -Recommend aggressive bowel regimen in the setting of opioid use: - Recommend Senna 1 tablet PO BID. - Can titrate Senna up to 4 tablets PO BID. - Recommend 17 g Miralax PO qd - Can also consider Bisacodyl suppository daily PRN constipa tion - Goal of one soft stool every 1-2 days. Thank you for the opportunity to partici west in the care of this patient.We will follow along with you. For any questions or concerns, please page us via the page solvent plant operator or via the pager below. Colette Kennedy PA-C Supportive Medicine Physician Room Service Attendant [place] Supportive Medicine Pager: #[phone] Extracted from:Title: neuro-oncology 12/10/2019 [facility] Author: Jc Kirkland MD Date: 12/09/19 I [...] is causing in creasing short-term memory difficultywhi mercedes is indirectly contributingto her confusion, similar toa [...] -continue home AEDs with Keppra and lamotrigine -PT/SUPERVISOR STAVE FINISHING ordered 2.Meningiomatosis(D42.9) -s/pprior resection and radiation therapy. [...] -continue home AEDs with Keppra and lamotrigine -PT/SUPERVISOR STAVE FINISHING ordered 2.Meningiomatosis(D42.9) Status post resection and radiation [...] History Date Source Social History TypeResponse 05/09/2015 [facility] Alcohol Never Smoking Status Never smoker; Ready to change: No; Candice rns about tobacco use in household: No; Exposure to Tobacco Smoke None; Cigarette Smoking Last 365 Days No; Reg Smoking Cessation Counseling No entered on: 04/10/20 Family History No Data Provided for This Section Advance Directives No Data Provided for This Section Functional Status No Data Provided for This Section
--- OUTSIDE RECORDS SUMMARY | 2020-05-20 11:03 | XMS REPORT | Summary of Care ---
:1975 Author Organization [facility] Address [address] [place] [id number] Encounter HQ Encntr_alishawanda(FIN) [id number] Date(s): 04/10/20 - 04/19/[address] Professional Services provided by [facility] [place] [address]- Discharge Disposition: Home or Self Care Attending Physician: Carmencita Harmon MD Admitting Physician: Carmencita Harmon MD Referring Physician: Marco Blas MD Vital Signs Most recent to oldest 1 2 3 [Reference Range]: Height 157.48 cm 157.48 cm 157.48 cm (04/16/20 3:41 PM) (04/16/20 11:17 AM) (04/16/20 7:34 AM) Current Weight 68.636 kg 68.182 kg (04/15/20 4:36 AM) (04/14/20 5:04 AM) Blood Pressure 114/68 mmHg 132/73 mmHg 100/65 mmHg [90-140/60-90 mmHg] (04/19/20 7:27 AM) (04/19/20 4:59 AM) (04/18 8:40 PM) Respiratory Rate [ 17 BRMIN 18 BRMIN 18 BRMIN BRMIN] (04/19/20 7:27 AM) (04/19/20 4:59 AM) (04/18/20 8:40 PM) Peripheral Pulse Rate 97 bpm 89 bpm 91 bpm [60-100 bpm] (04/18/20 7:16 AM) (04/10/20 12:41 AM) (04/10/20 1 2:40 AM) Weight 70 kg (04/10/20 9:18 AM) [...] iodine topical Active Medications acetaminophen 650 mg, 1 supp, Route: CT, Drug form: SUPP, Q6H, Dosing Weight 70, kg, PRN For Temp > 100.4 F, Start date: 04/16/20 16:57:00 TUBE FORMER OPERATOR, Duration: 30 day, Stop date: 05/16/20 16:56:00 TUBE FORMER OPERATOR, 0 Notes: Max acetaminophen = 4000 mg/day (4 gm/day). (Same as: Tylenol) Start Date: 04/16/20 Stop Date: 04/17/20 Status: Discontinuedacetaminophen 650 mg, 2 tab, Route: PO, Drug form: TAB, Q4H, Dosing Weight 79.545, kg, PRN For Temp > 100.4 F, Start date: 04/10/20 7:46:00 TUBE FORMER OPERATOR, Duration: 30 day, Stop date: 05/10/20 7:45:00 TUBE FORMER OPERATOR, 0 Notes: Do not exceed 4 gm/day. (Same as: Tylenol) Start Date: 04/10/20 Stop Date: 04/17/20 Status: Discontinuedacetaminophen 650 mg, 2 tab, Route: GT, Drug form: TAB, Q6H, Dosing Weight 79.545, kg, Start date: 04/17/20 18:00:00 TUBE FORMER OPERATOR, Duration: 30 day, Stop date: 05/17/20 12:00:00 TUBE FORMER OPERATOR, 0 Notes: Do not exceed 4 gm/day. (Same as: Tylenol) Start Date: 04/17/20 Stop Date: 04/19/20 Status: Discontinuedacetaminophen 325 mg oral tablet. 650 mg = 2 tab, GT, Q6H, # 90 tab, 0 Refill(s) Start Date: 04/19/20 Stop Date: 07/18/20 Status: OrderedANES flumazenil 0.2 mg, 2 mL, Route: IVP, Drug form: INJ, PRN, Dosing Weight 70, kg, PRN Benzodiazepine Reversal, Initial dose, Start date: 04/13/20 11:03:00 TUBE FORMER OPERATOR, Stop date: 04/14/20 0:00:00 TUBE FORMER OPERATOR, 0 Notes: (Same as: Romazicon) Start Date: 04/13/20 Stop Date: 04/13/20 Status: DiscontinuedANES HYDROmorphone 0.5 mg, 0.25 mL, Route: IVP, Drug form: INJ, Q5Min, Dosing Weight 70, kg, PRN Pain Score 7-10, Startdate: 04/13/20 11:03:00 TUBE FORMER OPERATOR, Duration: 4 doses or times, Stop date: 04/14/20 0:00:00 TUBE FORMER OPERATOR, 0 Notes: Same as Dilaudid Start Date: 04/13/20 Stop Date: 04/13/20 Status: DiscontinuedANES naloxone 0.4 mg, 1 mL, Route: IVP, Drug form: INJ, Q2MIN, Dosing Weight 70, kg, PRN Narcotic Reversal, Start date: 04/13/20 11:03:00 TUBE FORMER OPERATOR, Duration: 8 doses or times, Stop date: 04/14/20 0:00:00 TUBE FORMER OPERATOR, 0 Notes: Same as Narcan Start Date: 04/13/20 Stop Date: 04/13/20 Status: DiscontinuedANES ondansetron 4 mg, 2 mL, Route: IVP, Drug form: INJ, ONCE, Dosing Weight 70, kg, PRN Nausea & Vomiting, Startdate: 04/13/20 11:03:00 TUBE FORMER OPERATOR, 0 Notes: (Same as: Zofran) MEDICATION WASTE Product Size: 4 mgProduct Wasted: ___ mg Start Date: 04/13/20 Stop Date: 04/13/20 Status: Discontinuedaspirin 325 mg, 1 tab, Route: PO, Drug form: TAB, ONCE, Dosing Weight 70, kg, Start date: 04/11/20 10:34:00 TUBE FORMER OPERATOR, Stop date: 04/11/20 10:34:00 TUBE FORMER OPERATOR, 0 Notes: Take with food. Start Date: 04/11/20 Stop Date: 04/11/20 Status: Completedaspirin 81 mg tablet, enteric coated 81 mg, 1 tab, Route: PO, Drug form: ECTAB, Daily, Dosing Weight 70, kg, Start date: 04/12/20 9:00:00CST, Duration: 30 day, Stop date: 05/11/20 9:00:00 TUBE FORMER OPERATOR, 0 Notes: Do not crush or chew.(Same As: Ecotrin) Start Date: 04/12/20 Stop Date: 04/12/20 Status: Discontinuedaspirin 81 mg tablet, enteric coated 81 mg, 1 tab, Route: PO, Drug form: CHEWTAB, Daily, Dosing Weight 70, kg, Start date: 04/13/20 9:00:00 TUBE FORMER OPERATOR, Duration: 30 day, Stop date: 05/12/20 9:00:00 TUBE FORMER OPERATOR, 0 Notes: Take with food. Start Date: 04/13/20 Stop Date: 04/16/20 Status: DiscontinuedAtivan 2 mg, 1 mL, Route: IV, Drug form: INJ, Q10Min, Dosing Weight 70, kg, PRN Seizure, Start date: 04/14/20 1:50:00 TUBE FORMER OPERATOR, Duration: 3 doses or times, Stop date: Limited # of times, 0 Notes: (Same as: Ativan) Start Date: 04/14/20 Stop Date: 04/17/20 Status: DiscontinuedAtivan 1 mg, 0.5 mL, Route: IVP, Drug form: INJ, Q4H, Dosing Weight 70, kg, PRN as needed for anxiety, Start date: 04/17/20 14:03:00 TUBE FORMER OPERATOR, Duration: 7 day, Stop date: 04/24/20 14:02:00 TUBE FORMER OPERATOR, 0 Notes: (Same as: Ativan) Start Date: 04/17/20 Stop Date: 04/19/20 Status: DiscontinuedAtivan 4 mg, 2 mL, Route: IVP, Drug form: INJ, ONCE, Dosing Weight 70, kg, PRN Anxiety, Start date: 04/13/20 20:48:00 TUBE FORMER OPERATOR, 0 Notes: (Same as: Ativan) Start Date: 04/13/20 Stop Date: 04/14/20 Status: Completedatorvastatin 40 mg, 1 tab, Route: PO, Drug form: TAB, Bedtime, Dosing Weight 70, kg, Start date: 04/11/20 21:00:00 TUBE FORMER OPERATOR, Duration: 30 day, Stop date: 05/10/20 21:00:00 TUBE FORMER OPERATOR, 0 Notes: (Same as: Lipitor) Start Date: 04/11/20 Stop Date: 04/16/20 Status: Discontinuedbisacodyl 10 mg, 1 supp, Route: CT, Drug form: SUPP, Daily, Dosing Weight 70, kg, PRN Constipation, Start date: 04/17/20 14:10:00 TUBE FORMER OPERATOR, Duration: 30 day, Stop date: 05/17/20 14:09:00 TUBE FORMER OPERATOR, 0 Notes: (Same As: Dulcolax, Bisco-Lax) Start Date: 04/17/20 Stop Date: 04/19/20 Status: Discontinuedbisacodyl 10 mg rectal suppository 10 mg = 1 supp, CT, Daily, PRN Constipation, # 90 supp, 2 Refill(s) Start Date: 04/19/20 Stop Date: 06/20/20 Status: OrderedceFAZolin 2 gm, 20 mL, Route: IVP, Drug form: SOLN, ABXQ8H, Dosing Weight 70, kg, Start date: 04/13/20 10:00:00 TUBE FORMER OPERATOR, Duration: 4 day, Stop date: 04/17/20 2:00:00 TUBE FORMER OPERATOR, ABX Indication: Pneumonia, 0 Notes: (Same as Ancef) Start Date: 04/13/20 Stop Date: 04/15/20 Status: Discontinuedcefepime 2 gm, Route: IVP, ONCE, Dosing Weight 79.545, kg, Priority: STAT, Start date: 04/10/20 3:59:00 TUBE FORMER OPERATOR, Stop date: 04/10/20 3:59:00 TUBE FORMER OPERATOR, ABX Indication: Pneumonia Start Date: 04/10/20 Stop Date: 04/10/20 Status: Completedcefepime + sterile water 10 mL 1 gm, Route: IVP, ABXQ6H, Dosing Weight 79.545, kg, Start date: 04/10/20 12:00:00 TUBE FORMER OPERATOR, Duration: 7 day, Stop date: 04/17/20 6:00:00 TUBE FORMER OPERATOR, ABX Indication: Pneumonia, 0 Notes: (Same As: Edieime) MEDICATION WASTE Product Size: 1000 mgProduct Wasted: ___ mg Start Date: 04/10/20 Stop Date: 04/12/20 Status: DiscontinuedcefTRIAXone + sterile water 10 mL 1 gm, Route: IVPB, [id number], Dosing Weight 70, kg, Start date: 04/12/20 10:00:00 TUBE FORMER OPERATOR, Duration: 3 day, Stop date: 04/14/20 10:00:00 TUBE FORMER OPERATOR, ABX Indication: ED - Suspected Sepsis, 0 Notes: (Same As: Rocephin).Use with 100 mL NS and infuse over 30 min MEDICATION WASTE Product Size: 1000 mgProduct Wasted: ___ mg Start Date: 04/12/20 Stop Date: 04/12/20 Status: Discontinuedchlorhexidine topical 0.12% liquid 15 mL, Route: Swab Mouth, Q12H, Drug form: LIQ, Start date: 04/15/20 9:00:00 TUBE FORMER OPERATOR, Duration: 30 day, Stop date: 05/14/20 21:00:00 TUBE FORMER OPERATOR, 0 Notes: (Same As: Peridex) Start Date: 04/15/20 Stop Date: 04/17/20 Status: Discontinuedchlorhexidine topical 0.12% liquid 15 mL, Route: Swab Mouth, PRN, Drug form: LIQ, PRN Other -See Comment, Start date: 04/14/20 21:39:00CST, Duration: 30 day, Stop date: 05/14/20 21:38:00 TUBE FORMER OPERATOR, 0 Notes: (Same As: Peridex) Start Date: 04/14/20 Stop Date: 04/17/20 Status: Discontinuedchlorhexidine topical 0.12% liquid 15 mL, Route: Swab Mouth, Q12H, Drug form: LIQ, Start date: 04/10/20 9:00:00 TUBE FORMER OPERATOR, Duration: 30 day, Stop date: 05/09/20 21:00:00 TUBE FORMER OPERATOR, 0 Notes: (Same As: Peridex) Start Date: 04/10/20 Stop Date: 04/13/20 Status: Discontinuedchlorhexidine topical 0.12% liquid 15 mL, Route: Swab Mouth, PRN, Drug form: LIQ, PRN Other -See Comment, Start date: 04/10/20 7:51:00 TUBE FORMER OPERATOR, Duration: 30 day, Stop date: 05/10/20 7:50:00 TUBE FORMER OPERATOR, 0 Notes: (Same As: Peridex) Start Date: 04/10/20 Stop Date: 04/13/20 Status: DiscontinuedCleocin HCl 600 mg, 4 mL, Route: IVPB, Drug form: INJ, ABXQ8H, Start date: 04/14/20 6:00:00 TUBE FORMER OPERATOR, Duration: 7 day, Stop date: 04/20/20 22:00:00 TUBE FORMER OPERATOR, ABX Indication: Bacteremia, 0 Notes: (clindamycin 150 mg/1 ml (600 mg/4 ml VL) INJ) (Same As: Cleocin) Start Date: 04/14/20 Stop Date: 04/14/20 Status: Discontinuedclindamycin 300 mg, Route: IVPB, ABXQ8H, Dosing Weight 70, kg, Start date: 04/14/20 5:00:00 TUBE FORMER OPERATOR, Duration: 7 day, Stop date: 04/20/20 21:00:00 TUBE FORMER OPERATOR, ABX Indication: Bacteremia Start Date: 04/14/20 Stop Date: 04/14/20 Status: Discontinueddexamethasone 10 mg, Route: IVP, ONCE, Dosing Weight 79.545, kg, Priority: STAT, Start date: 04/10/20 2:51:00 TUBE FORMER OPERATOR,Stop date: 04/10/20 2:51:00 TUBE FORMER OPERATOR Start Date: 04/10/20 Stop Date: 04/10/20 Status: Completeddexamethasone 6 mg, 1.5 mL, Route: IV, Drug form: INJ, Q6H, Dosing Weight 79.545, kg, Start date: 04/10/20 6:00:00CST, Duration: 30 day, Stop date: 05/10/20 0:00:00 TUBE FORMER OPERATOR, 0 Notes: Concentration: 4mg/ml Start Date: 04/10/20 Stop Date: 04/12/20 Status: Discontinueddexamethasone 4 mg, 1 mL, Route: IV, Drug form: INJ, TID, Dosing Weight 79.545, kg, Start date: 04/14/20 13:00:00 TUBE FORMER OPERATOR, Duration: 30 day, Stop date: 05/14/20 9:00:00 TUBE FORMER OPERATOR, 0 Notes: Concentration: 4mg/ml Start Date: 04/14/20 Stop Date: 04/14/20 Status: Discontinueddexamethasone 4 mg, 1 tab, Route: PO, Drug form: TAB, TID, Dosing Weight 79.545, kg, Start date: 04/14/20 13:00:00CST, Duration: 30 day, Stop date: 05/14/20 9:00:00 TUBE FORMER OPERATOR, 0 Notes: Give with food.(Same As: Decadron) Start Date: 04/14/20 Stop Date: 04/14/20 Status: Discontinueddexamethasone 6 mg, 1 tab, Route: PO, Drug form: TAB, Q8H, Dosing Weight 79.545, kg, Start date: 04/14/20 16:00:00CST, Stop date: 05/14/20 4:00:00 TUBE FORMER OPERATOR, 0 Notes: Give with food. Start Date: 04/14/20 Stop Date: 04/16/20 Status: Discontinueddexamethasone 8 mg, 2 tab, Route: PO, Drug form: TAB, Q8H-05, Dosing Weight 79.545, kg, Start date: 04/16/20 13:00:00 TUBE FORMER OPERATOR, Stop date: 05/13/20 21:00:00 TUBE FORMER OPERATOR, 0 Notes: Give with food.(Same As: Decadron) Start Date: 04/16/20 Stop Date: 04/19/20 Status: Discontinueddexamethasone 4 mg, 1 mL, Route: IV, Drug form: INJ, Q6H, Dosing Weight 79.545, kg, Start date: 04/12/20 12:00:00 TUBE FORMER OPERATOR, Duration: 30 day, Stop date: 05/12/20 6:00:00 TUBE FORMER OPERATOR, 0 Notes: Concentration: 4mg/ml Start Date: 04/12/20 Stop Date: 04/14/20 Status: Discontinueddexamethasone 4 mg oral tablet 8 mg = 2 tab, PO, Q8H-05, X 30 day, # 180 tab, 2 Refill(s) Start Date: 04/19/20 Stop Date: 07/18/20 Status: OrderedDextrose 50% in Water IV 12.5 gm, 25 mL, Route: IVP, Drug Form: INJ, Dosing Weight 70, kg, PRN, PRN Blood Glucose Results, Start date: 04/10/20 10:45:00 TUBE FORMER OPERATOR, Duration: 30 day, Stop date: 05/10/20 10:44:00 TUBE FORMER OPERATOR, 0 Start Date: 04/10/20 Stop Date: 04/19/20 Status: DiscontinuedDextrose 50% in Water IV 25 gm, 50 mL, Route: IVP, Drug Form: INJ, Dosing Weight 70, kg, PRN, PRN Blood Glucose Results, Start date: 04/10/20 10:45:00 TUBE FORMER OPERATOR, Duration: 30 day, Stop date: 05/10/20 10:44:00 TUBE FORMER OPERATOR, 0 Start Date: 04/10/20 Stop Date: 04/19/20 Status: Discontinueddocusate 100 mg, 10 mL, Route: PO, Drug form: LIQ, Q12H, Dosing Weight 79.545, kg, Start date: 04/10/20 9:00:00 TUBE FORMER OPERATOR, Duration: 30 day, Stop date: 05/09/20 21:00:00 TUBE FORMER OPERATOR, 0 Notes: (Same as: Colace) Start Date: 04/10/20 Stop Date: 04/16/20 Status: DiscontinuedDOPamine 800 mg in D5W 250 mL (Titrate.) IV 800 mg 800 mg, 250 mL, Rate: Titrate, Start Dose: 5 microgram/kg/min, Titration: 2.5 microgram/kg/min every15 minutes, Goal(s): MAP >= 65 mmHg, Max Dose: 20 microgram/kg/min, Route: IV, Dosing Weight 70 kg, Total Volume: 250, Start date: 04/14/20 20:17:00 C... Notes: (Same as: Intropin) Administer by either central venous catheter or peripherally-inserted central catheter (PICC) line. Final conc = 3.2 mg/ml. Premix solution. Start Date: 04/14/20 Stop Date: 04/16/20 Status: DiscontinuedDuoNeb inhalation solution 3 ml, Route: NEB, Drug Form: SOLN, Dosing Weight 70, kg, PRN, PRN Respiratory Pathway, Start date: 04/13/20 20:55:00 TUBE FORMER OPERATOR, Duration: 30 day, Stop date: 05/13/20 20:54:00 TUBE FORMER OPERATOR, 0 Notes: (Same as: Duoneb) Start Date: 04/13/20 Stop Date: 04/19/20 Status: DiscontinuedDuoNeb inhalation solution 3 mL, Route: NEB, Drug Form: SOLN, Dosing Weight 70, kg, RQ12H, Start date: 04/13/20 20:55:00 TUBE FORMER OPERATOR, Duration: 30 day, Stop date: 05/13/20 16:00:00 TUBE FORMER OPERATOR, 0 Notes: (Same as: Duoneb) Start Date: 04/13/20 Stop Date: 04/15/20 Status: Discontinuedetomidate 10 mg, Route: IV, ONCE, Dosing Weight 70, kg, Start date: 04/14/20 20:22:00 TUBE FORMER OPERATOR, Stop date: 04/14/2020:22:00 TUBE FORMER OPERATOR Start Date: 04/14/20 Stop Date: 04/14/20 Status: Completedfamotidine 20 mg, 2 mL, Route: IVP, Drug form: INJ, BID, Dosing Weight 79.545, kg, Priority: STAT, Start date: 04/10/20 2:52:00 TUBE FORMER OPERATOR, Duration: 30 day, Stop date: 05/09/20 17:00:00 TUBE FORMER OPERATOR, 0 Notes: (Same as: Pepcid)Can be dilute in 5-10cc NS IVP: Slow IV push over at least 2 minutes. Start Date: 04/10/20 Stop Date: 04/10/20 Status: Discontinuedfamotidine 20 mg, 2 mL, Route: IVP, Drug form: INJ, Q12H, Dosing Weight 79.545, kg, Start date: 04/10/20 17:00:00 TUBE FORMER OPERATOR, Duration: 30 day, Stop date: 05/10/20 9:00:00 TUBE FORMER OPERATOR, 0 Notes: (Same as: Pepcid)Can be dilute in 5-10cc NS IVP: Slow IV push over at least 2 minutes. Start Date: 04/10/20 Stop Date: 04/11/20 Status: Discontinuedfamotidine 20 mg, 1 tab, Route: PO, Drug form: TAB, Q12H, Dosing Weight 70, kg, Start date: 04/11/20 21:00:00 TUBE FORMER OPERATOR, Duration: 30 day, Stop date: 05/11/20 9:00:00 TUBE FORMER OPERATOR, 0 Notes: (Same as: Pepcid) Start Date: 04/11/20 Stop Date: 04/13/20 Status: DiscontinuedfentaNYL 25 microgram, 0.5 mL, Route: IV, Drug form: INJ, Q3H, Dosing Weight 70, kg, PRN Agitation, Start date: 04/11/20 7:55:00 TUBE FORMER OPERATOR, Duration: 30 day, Stop date: 05/11/20 7:54:00 TUBE FORMER OPERATOR, 0 Notes: (Same as: Sublimaze) Preservative free. Start Date: 04/11/20 Stop Date: 04/13/20 Status: DiscontinuedfentaNYL 100 microgram, Route: IV, ONCE, Dosing Weight 70, kg, Start date: 04/14/20 20:22:00 TUBE FORMER OPERATOR, Stop date: 04/14/20 20:22:00 TUBE FORMER OPERATOR Start Date: 04/14/20 Stop Date: 04/14/20 Status: CompletedfentaNYL 50 microgram, Route: IV, ONCE, Dosing Weight 70, kg, Start date: 04/14/20 20:44:00 TUBE FORMER OPERATOR, Stop date: 04/14/20 20:44:00 TUBE FORMER OPERATOR Start Date: 04/14/20 Stop Date: 04/14/20 Status: CompletedfentaNYL 25 microgram, Route: IV, Q6H, Dosing Weight 70, kg, PRN Agitation, Start date: 04/11/20 7:43:00 TUBE FORMER OPERATOR,Duration: 30 day, Stop date: 05/11/20 7:42:00 TUBE FORMER OPERATOR Start Date: 04/11/20 Stop Date: 04/11/20 Status: DiscontinuedfentaNYL 25 microgram, Route: IV, Q6H, Dosing Weight 70, kg, PRN Pain Score 4-6, Start date: 04/11/20 7:43:00CST, Duration: 30 day, Stop date: 05/11/20 7:42:00 TUBE FORMER OPERATOR Start Date: 04/11/20 Stop Date: 04/11/20 Status: DiscontinuedfentaNYL (ANES) Route: IV, Drug form: INJ, ONCE, Stop date: 04/13/20 10:53:00 TUBE FORMER OPERATOR Start Date: 04/13/20 Stop Date: 04/13/20 Status: CompletedfentaNYL 1000 microgram in 20 mL NS (Titrate.) IV 1,000 microgram 1,000 microgram, 20 mL, Rate: Titrate, Start Dose: 50 microgram/hr, Titration: 25 microgram/hour every 15 minutes, Goal(s): RASS -1, Max Dose: 300 microgram/hr, Route: IV, Dosing Weight 70 kg, Total Volume: 20, Start date: 04/14/20 21:29:00 TUBE FORMER OPERATOR, Durat... Start Date: 04/14/20 Stop Date: 04/16/20 Status: DiscontinuedfentaNYL 1000 microgram in 20 mL NS (Titrate.) IV 1,000 microgram 1,000 microgram, 20 mL, Rate: Titrate, Start Dose: 50 microgram/hr, Titration: 25 microgram/hour every 15 minutes, Goal(s): hr, Max Dose: 300 microgram/hr, Route: IV, Dosing Weight 79.545 kg, Total Volume: 20, Start date: 04/10/20 0:49:00 TUBE FORMER OPERATOR, Duratio... Start Date: 04/10/20 Stop Date: 04/11/20 Status: DiscontinuedFlagyl 500 mg, 100 mL, Route: IVPB, Drug form: INJ, ABXQ8H, Dosing Weight 79.545, kg, Start date: 04/10/20 14:00:00 TUBE FORMER OPERATOR, Duration: 7 day, Stop date: 04/17/20 6:00:00 TUBE FORMER OPERATOR, ABX Indication: Pneumonia, 0 Notes: (Same as: Flagyl) Avoid alcohol. Start Date: 04/10/20 Stop Date: 04/12/20 Status: Discontinuedglucagon 1 mg, Route: IM, Drug form: PDR/INJ, PRN, Dosing Weight 70, kg, PRN Blood Glucose Results, Start date: 04/10/20 10:45:00 TUBE FORMER OPERATOR, Duration: 30 day, Stop date: 05/10/20 10:44:00 TUBE FORMER OPERATOR, 0 Start Date: 04/10/20 Stop Date: 04/19/20 Status: Discontinuedglycopyrrolate 0.4 mg, 2 mL, Route: IV, Drug form: INJ, Q6H, Dosing Weight 70, kg, Start date: 04/17/20 18:00:00 TUBE FORMER OPERATOR, Duration: 30 day, Stop date: 05/17/20 12:00:00 TUBE FORMER OPERATOR, 0 Notes: (Same as: Hammad) Start Date: 04/17/20 Stop Date: 04/19/20 Status: Discontinuedglycopyrrolate 0.2 mg/mL intravenous solution 0.4 mg, IV, Q6H, # 30 mL, 0 Refill(s) Start Date: 04/19/20 Status: OrderedHaldol 0.5 mg, 0.1 mL, Route: IVP, Drug form: INJ, Q2H, Dosing Weight 70, kg, PRN Other -See Comment, Startdate: 04/17/20 14:07:00 TUBE FORMER OPERATOR, Duration: 30 day, Stop date: 05/17/20 14:06:00 TUBE FORMER OPERATOR, 0 Notes: (Same as: Haldol) Start Date: 04/17/20 Stop Date: 04/19/20 Status: Discontinuedhaloperidol 5 mg/mL injectable solution 0.5 mg, IV, Q2H, PRN Other -See Comment, PRN delirium, X 30 day, # 30 mL, 0 Refill(s) Start Date: 04/19/20 Stop Date: 05/19/20 Status: OrderedHeparin 30 unit/kg Bolus (Heparin Dosing Weight) Route: IVP, PRN, 1,700 unit, 1.7 mL, Drug form: INJ, PRN, Heparin Protocol, Start date: 04/11/20 11:02:00 TUBE FORMER OPERATOR Stop date: 05/11/20 11:01:00 TUBE FORMER OPERATOR, 30 day, 0 Start Date: 04/11/20 Stop Date: 04/13/20 Status: Discontinuedheparin 5000 units/mL injectable solution 5,000 unit, 1 mL, Route: SUB-Q, Drug form: INJ, Q8H, Dosing Weight 70, kg, Start date: 04/13/20 16:00:00 TUBE FORMER OPERATOR, Duration: 30 day, Stop date: 05/13/20 8:00:00 TUBE FORMER OPERATOR, 0 Notes: porcine heparin Start Date: 04/13/20 Stop Date: 04/16/20 Status: DiscontinuedHeparin 60 unit/kg Bolus (Heparin Dosing Weight) Route: IVP, PRN, 3,500 unit, 3.5 mL, Drug form: INJ, PRN, Heparin Protocol, Start date: 04/11/20 11:02:00 TUBE FORMER OPERATOR Stop date: 05/11/20 11:01:00 TUBE FORMER OPERATOR, 30 day, 0 Start Date: 04/11/20 Stop Date: 04/13/20 Status: Discontinuedheparin additive 25,000 unit [12 unit/kg/hr] + Premix Diluent Sodium Chloride 0.45% 500 mL 500 mL, Rate: 13.93 ml/hr, Infuse over: 35.9 hr, Route: IV, Dosing Weight 58.06 kg, Total Volume: 500 mL, Start date: 04/11/20 11:02:00 TUBE FORMER OPERATOR, Duration: 30 day, Stop date: 05/11/20 11:01:00 TUBE FORMER OPERATOR, 1.61, m2, 0 Notes: Total Concentration = 50 unit/ ml Total volume = 500 mlSend Med Request 2 hours prior to next bag Start Date: 04/11/20 Stop Date: 04/13/20 Status: Discontinuedinsulin lispro 3 unit, 0.03 mL, Route: SUB-Q, Drug form: SOLN, Sliding Scale, Dosing Weight 70, kg, PRN Blood Glucose Results, Start date: 04/10/20 10:45:00 TUBE FORMER OPERATOR, Duration: 30 day, Stop date: 05/10/20 10:44:00 TUBE FORMER OPERATOR, 0 Notes: (Same as: Humalog) Roll in [...] Blood Glucose Results, Start date: 04/10/20 10:45:00 TUBE FORMER OPERATOR, Duration: 30 day, Stop date: 05/10/20 10:44:00 TUBE FORMER OPERATOR, 0 Notes: (Same as: Humalog) Roll in [...] Blood Glucose Results, Start date: 04/10/20 10:45:00 TUBE FORMER OPERATOR, Duration: 30 day, Stop date: 05/10/20 10:44:00 TUBE FORMER OPERATOR, 0 Notes: (Same as: Humalog) Roll in [...] Blood Glucose Results, Start date: 04/10/20 15:10:00 TUBE FORMER OPERATOR, Duration: 30 day, Stop date: 05/10/20 15:09:00 TUBE FORMER OPERATOR, 0 Notes: (Same as: Humulin R) Roll in palms of hands gently; Do not shake vigorously. WASTE:F/P - Black; E - Municipal Trash BinStable for 31 days at room temperature Expires in days from Date Start Date: 04/10/20 Stop Date: 04/16/20 Status: DiscontinuedInsulin regular 8 unit, 0.08 mL, Route: SUB-Q, Drug form: SOLN, Sliding Scale, Dosing Weight 70, kg, PRN Blood Glucose Results, Start date: 04/10/20 15:10:00 TUBE FORMER OPERATOR, Duration: 30 day, Stop date: 05/10/20 15:09:00 TUBE FORMER OPERATOR, 0 Notes: (Same as: Humulin R) Roll in palms of hands gently; Do not shake vigorously. WASTE:F/P - Black; E - Municipal Trash BinStable for 31 days at room temperature Expires in days from Date Start Date: 04/10/20 Stop Date: 04/16/20 Status: DiscontinuedInsulin regular 12 unit, 0.12 mL, Route: SUB-Q, Drug form: SOLN, Sliding Scale, Dosing Weight 70, kg, PRN Blood Glucose Results, Start date: 04/10/20 15:10:00 TUBE FORMER OPERATOR, Duration: 30 day, Stop date: 05/10/20 15:09:00 TUBE FORMER OPERATOR, 0 Notes: (Same as: Humulin R) Roll in palms of hands gently; Do not shake vigorously. WASTE:F/P - Black; E - Municipal Trash BinStable for 31 days at room temperature Expires in days from Date Start Date: 04/10/20 Stop Date: 04/16/20 Status: DiscontinuedIsolyte S PH-7.4 (Bolus) IV 1,000 mL, Infuse Over: 1 hr, Route: IV, Drug form: INJ, ONCE, Priority: STAT, Dosing Weight 79.545 kg, Start date: 04/10/20 0:49:00 TUBE FORMER OPERATOR, Stop date: 04/10/20 0:49:00 TUBE FORMER OPERATOR, Bolus Dose Start Date: 04/10/20 Stop Date: 04/10/20 Status: CompletedIsolyte S PH-7.4 (Bolus) IV 1,000 mL, Infuse Over: 1 hr, Route: IV, Drug form: INJ, ONCE, Priority: STAT, Dosing Weight 79.545 kg, Start date: 04/10/20 1:22:00 TUBE FORMER OPERATOR, Stop date: 04/10/20 1:22:00 TUBE FORMER OPERATOR, Bolus Dose Start Date: 04/10/20 Stop Date: 04/10/20 Status: CompletedKeppra 500 mg, Route: PO, ONCE, Dosing Weight 70, kg, Start date: 04/14/20 2:32:00 TUBE FORMER OPERATOR, Stop date: 202:32:00 TUBE FORMER OPERATOR Start Date: 04/14/20 Stop Date: 04/14/20 Status: CompletedLactated Ringers (Bolus) IV 250 mL, 250 ml/hr, Infuse Over: 1 hr, Route: IV, 250, Drug form: INJ, ONCE, Priority: STAT, Dosing Weight 70 kg, Start date: 04/10/20 10:41:00 TUBE FORMER OPERATOR, Stop date: 04/10/20 10:41:00 TUBE FORMER OPERATOR, 0 Start Date: 04/10/20 Stop Date: 04/10/20 Status: CompletedLactated Ringers (Bolus) IV 500 mL, 500 ml/hr, Infuse Over: 1 hr, Route: IV, 500, Drug form: INJ, ONCE, Priority: STAT, Dosing Weight 70 kg, Start date: 04/15/20 0:38:00 TUBE FORMER OPERATOR, Stop date: 04/15/20 0:38:00 TUBE FORMER OPERATOR, 0 Start Date: 04/15/20 Stop Date: 04/15/20 Status: CompletedLactated Ringers (Bolus) IV 250 mL, 250 ml/hr, Infuse Over: 1 hr, Route: IV, 250, Drug form: INJ, ONCE, Priority: STAT, Dosing Weight 70 kg, Start date: 04/11/20 13:11:00 TUBE FORMER OPERATOR, Stop date: 04/11/20 13:11:00 TUBE FORMER OPERATOR, 0 Start Date: 04/11/20 Stop Date: 04/11/20 Status: DiscontinuedLactated Ringers (Bolus) IV 500 mL, 500 ml/hr, Infuse Over: 1 hr, Route: IV, 500, Drug form: INJ, ONCE, Priority: STAT, Dosing Weight 70 kg, Start date: 04/10/20 16:28:00 TUBE FORMER OPERATOR, Stop date: 04/10/20 16:28:00 TUBE FORMER OPERATOR, 0 Start Date: 04/10/20 Stop Date: 04/10/20 Status: CompletedLactated Ringers (Bolus) IV 250 mL, 250 ml/hr, Infuse Over: 1 hr, Route: IV, ONCE, Priority: STAT, Dosing Weight 70 kg, Start date: 04/11/20 7:51:00 TUBE FORMER OPERATOR, Stop date: 04/11/20 7:51:00 TUBE FORMER OPERATOR Start Date: 04/11/20 Stop Date: 04/11/20 Status: DiscontinuedLactated Ringers (Bolus) IV 250 mL, 250 ml/hr, Infuse Over: 1 hr, Route: IV, 250, Drug form: INJ, ONCE, Priority: STAT, Dosing Weight 70 kg, Start date: 04/11/20 7:52:00 TUBE FORMER OPERATOR, Stop date: 04/11/20 7:52:00 TUBE FORMER OPERATOR, 0 Start Date: 04/11/20 Stop Date: 04/11/20 Status: CompletedLactated Ringers (Bolus) IV 1,000 mL, 1,000 ml/hr, Infuse Over: 1 hr, Route: IV, 1,000, Drug form: INJ, ONCE, Priority: STAT, Dosing Weight 70 kg, Start date: 04/15/20 7:50:00 TUBE FORMER OPERATOR, Stop date: 04/15/20 7:50:00 TUBE FORMER OPERATOR, 0 Start Date: 04/15/20 Stop Date: 04/15/20 Status: CompletedLactated Ringers (Bolus) IV 1,000 mL, 1000 ml/hr, Infuse Over: 1 hr, Route: IV, 1,000, Drug form: INJ, ONCE, Priority: STAT, Dosing Weight 70 kg, Start date: 04/10/20 16:55:00 TUBE FORMER OPERATOR, Stop date: 04/10/20 16:55:00 TUBE FORMER OPERATOR, 0 Start Date: 04/10/20 Stop Date: 04/10/20 Status: CompletedLactated Ringers (Bolus) IV 500 mL, 500 ml/hr, Infuse Over: 1 hr, Route: IV, 500, Drug form: INJ, ONCE, Dosing Weight 70 kg, Start date: 04/11/20 13:47:00 TUBE FORMER OPERATOR, Stop date: 04/11/20 13:47:00 TUBE FORMER OPERATOR, 0 Start Date: 04/11/20 Stop Date: 04/11/20 Status: CompletedLactated Ringers Injection IV (ANES) 1000 mL Route: IV, Total Volume: 1,000, Start date: 04/13/20 10:04:00 TUBE FORMER OPERATOR, Stop date: 04/13/20 11:04:00 TUBE FORMER OPERATOR Start Date: 04/13/20 Stop Date: 04/13/20 Status: CompletedlamoTRIgine 200 mg oral tablet 400 mg, 4 tab, Route: PO, Drug form: TAB, Q12H, Dosing Weight 70, kg, Start date: 04/14/20 9:00:00 TUBE FORMER OPERATOR, Duration: 30 day, Stop date: 05/13/20 21:00:00 TUBE FORMER OPERATOR, 0 Notes: (Same as:LaMICtal) Start Date: 04/14/20 Stop Date: 04/19/20 Status: DiscontinuedlamoTRIgine 200 mg oral tablet, disintegrating 400 mg = 2 tab, PO, Q12H, # 120 tab, 3 Refill(s) Start Date: 04/19/20 Stop Date: 08/17/20 Status: OrderedlevETIRAcetam 1000 mg oral tablet 1,000 mg, 2 tab, Route: PO, Drug form: TAB, Q12H, Dosing Weight 70, kg, Start date: 04/13/20 21:00:00 TUBE FORMER OPERATOR, Duration: 30 day, Stop date: 05/13/20 9:00:00 TUBE FORMER OPERATOR, 0 Notes: (Same as:Keppra) Start Date: 04/13/20 Stop Date: 04/16/20 Status: DiscontinuedlevETIRAcetam 750 mg oral tablet 1,500 mg = 2 tab, PO, Q12H, # 120 tab, 2 Refill(s) Start Date: 04/19/20 Stop Date: 07/18/20 Status: OrderedlevETIRAcetam 750 mg oral tablet 1,500 mg, 2 tab, Route: PO, Drug form: TAB, Q12H, Dosing Weight 70, kg, Start date: 04/16/20 21:00:00 TUBE FORMER OPERATOR, Duration: 30 day, Stop date: 05/16/20 9:00:00 TUBE FORMER OPERATOR, 0 Notes: Same as Keppra Start Date: 04/16/20 Stop Date: 04/19/20 Status: DiscontinuedLORazepam 1 mg, 0.5 mL, Route: IVP, Drug form: INJ, Q4H, Dosing Weight 70, kg, PRN Anxiety, Start date: 04/16/20 16:57:00 TUBE FORMER OPERATOR, Duration: 30 day, Stop date: 05/16/20 16:56:00 TUBE FORMER OPERATOR, 0 Notes: (Same as: Ativan) Start Date: 04/16/20 Stop Date: 04/19/20 Status: DiscontinuedLORazepam 1 mg, 0.5 mL, Route: IVP, Drug form: INJ, ONCE, Dosing Weight 70, kg, Start date: 04/16/20 16:57:00 TUBE FORMER OPERATOR, Stop date: 04/16/20 16:57:00 TUBE FORMER OPERATOR, 0 Notes: (Same as: Ativan) Start Date: 04/16/20 Stop Date: 04/16/20 Status: CompletedLORazepam 2 mg/mL injectable solution 1 mg = 0.5 mL, IVP, Q4H, PRN as needed for anxiety, # 15 mL, 2 Refill(s) Start Date: 04/19/20 Stop Date: 06/20/20 Status: OrderedLovenox 40 mg, 0.4 mL, Route: SUB-Q, Drug form: INJ, [id number], Dosing Weight 70, kg, Start date: 04/10/20 11:00:00 TUBE FORMER OPERATOR, Duration: 30 day, Stop date: 05/09/20 11:00:00 TUBE FORMER OPERATOR, 0 Notes: (Same as: Lovenox) Start Date: 04/10/20 Stop Date: 04/11/20 Status: Discontinuedmeropenem 500 mg, Route: IVPB, Drug form: PDR/INJ, [id number], Dosing Weight 70, kg, CrCL >/= 50 mL/min, Start date: 04/14/20 21:00:00 TUBE FORMER OPERATOR, Duration: 7 day, Stop date: 04/21/20 15:00:00 TUBE FORMER OPERATOR, ABX Indication: Pneumonia, 0 Notes: Same as Merrem Start Date: 04/14/20 Stop Date: 04/16/20 Status: DiscontinuedmetroNIDAZOLE 500 mg, Route: IVPB, ONCE, Dosing Weight 79.545, kg, Priority: STAT, Start date: 04/10/20 4:00:00 TUBE FORMER OPERATOR, Stop date: 04/10/20 4:00:00 TUBE FORMER OPERATOR, ABX Indication: Pneumonia Start Date: 04/10/20 Stop Date: 04/10/20 Status: Completedmidazolam 2 mg, Route: IVP, ONCE, Dosing Weight 70, kg, Start date: 04/14/20 20:22:00 TUBE FORMER OPERATOR, Stop date: 04/14/2020:22:00 TUBE FORMER OPERATOR Start Date: 04/14/20 Stop Date: 04/14/20 Status: Completedmidazolam (ANES) Route: IV, Drug form: SOLN, ONCE, Stop date: 04/13/20 10:53:00 TUBE FORMER OPERATOR Start Date: 04/13/20 Stop Date: 04/13/20 Status: [...] Start Date: 04/10/20 Stop Date: 04/10/20 Status: Discontinuedmorphine 4 mg/mL-NaCl 0.9% preservative-free intravenous solution 4 mg, IVP, Q4H, # 60 mL, 0 Refill(s) Start Date: 04/19/20 Stop Date: 05/19/20 Status: Orderedmorphine 4 mg/mL-NaCl 0.9% preservative-free intravenous solution 2 mg, IVP, Q2H, PRN Pain Score 1-3, # 30 mL, 0 Refill(s) Start Date: 04/19/20 Status: Orderedmorphine Sulfate 2 mg, 0.5 mL, Route: IVP, Drug form: SOLN, Q4H, Dosing Weight 70, kg, Start date: 04/17/20 20:00:00 TUBE FORMER OPERATOR, Duration: 30 day, Stop date: 05/17/20 16:00:00 TUBE FORMER OPERATOR, 0 Notes: (Same as:MORPhine Sulfate) Start Date: 04/17/20 Stop Date: 04/19/20 Status: Discontinuedmorphine Sulfate 2 mg, 0.5 mL, Route: IVP, Drug form: SOLN, ONCE, Dosing Weight 70, kg, Start date: 04/16/20 16:57:00CST, Stop date: 04/16/20 16:57:00 TUBE FORMER OPERATOR, 0 Notes: (Same as:MORPhine Sulfate) Start Date: 04/16/20 Stop Date: 04/16/20 Status: Completedmorphine Sulfate 1 mg, 0.25 mL, Route: IVP, Drug form: SOLN, Q2H, Dosing Weight 70, kg, PRN Pain Score 1-3, Start date: 04/16/20 16:57:00 TUBE FORMER OPERATOR, Duration: 30 day, Stop date: 05/16/20 16:56:00 TUBE FORMER OPERATOR, 0 Notes: (Same as:MORPhine Sulfate) Start Date: 04/16/20 Stop Date: 04/19/20 Status: Discontinuedmorphine Sulfate 2 mg, 0.5 mL, Route: IVP, Drug form: SOLN, ONCE, Dosing Weight 70, kg, Start date: 04/16/20 16:57:00CST, Stop date: 04/16/20 16:57:00 TUBE FORMER OPERATOR, 0 Notes: (Same as:MORPhine Sulfate) Start Date: 04/16/20 Stop Date: 04/16/20 Status: Completedmorphine Sulfate 4 mg, 1 mL, Route: IVP, Drug form: SOLN, Q4H, Dosing Weight 70, kg, Start date: 04/17/20 16:00:00 TUBE FORMER OPERATOR, Duration: 30 day, Stop date: 05/17/20 12:00:00 TUBE FORMER OPERATOR, 0 Notes: (Same as:MORPhine Sulfate) Start Date: 04/17/20 Stop Date: 04/17/20 Status: Discontinuednorepinephrine 16 mg in 250 mL (Titrate.) IV 16 mg 16 mg, 250 mL, Rate: Titrate, Start Dose: 5 microgram/min, Titration: 2 microgram/min every 2-5 minutes, Goal(s): MAP >= 65 mmHg, Max Dose: 70 microgram/min, Route: IV, Dosing Weight 70 kg, Total Volume: 250, Start date: 04/14/20 19:55:00 TUBE FORMER OPERATOR, Duratio... Notes: Same as: Levophed. Administer by [...] Total Volume: 250, Start date: 04/10/20 0:49:00 TUBE FORMER OPERATOR, Dura... Notes: Same as: Levophed. Administer by either central venous catheter or peripherally-inserted central catheter (PICC) line. Start Date: 04/10/20 Stop Date: 04/12/20 Status: Discontinuednystatin topical 100,000 units/g powder 1 appl, Route: TOP, PRN, Drug form: PWDR, PRN For Fungal Prophylaxis, Start date: 04/10/20 7:46:00 TUBE FORMER OPERATOR, Duration: 30 day, Stop date: 05/10/20 7:45:00 TUBE FORMER OPERATOR, 0 Notes: (Same as:Mycostatin, Nilstat) For external use only. Start Date: 04/10/20 Stop Date: 04/19/20 Status: Discontinuedocular lubricant 1 appl, Route: BOTH EYES, Q6H, Drug form: OINT, Start date: 04/15/20 0:00:00 TUBE FORMER OPERATOR, Duration: 30 day, Stop date: 05/14/20 18:00:00 TUBE FORMER OPERATOR, 0 Notes: (Same as: Lacri-Lube, Puralube, Duratears Naturale, Artificial Tears, and Tears Again ) Start Date: 04/15/20 Stop Date: 04/17/20 Status: Discontinuedocular lubricant 2 appl, Route: BOTH EYES, Q2H, Drug form: OINT, PRN Dry Eyes, Start date: 04/16/20 16:57:00 TUBE FORMER OPERATOR, Duration: 30 day, Stop date: 05/16/20 16:56:00 TUBE FORMER OPERATOR, 0 Notes: (Same as: Lacri-Lube, Puralube, Duratears Naturale, Artificial Tears, and Tears Again ) Start Date: 04/16/20 Stop Date: 04/19/20 Status: Discontinuedocular lubricant 1 appl, Route: BOTH EYES, Q6H, Drug form: OINT, Start date: 04/10/20 12:00:00 TUBE FORMER OPERATOR, Duration: 30 day,Stop date: 05/10/20 6:00:00 TUBE FORMER OPERATOR, 0 Notes: (Same as: Lacri-Lube, Puralube, Duratears Naturale, Artificial Tears, and Tears Again ) Start Date: 04/10/20 Stop Date: 04/13/20 Status: Discontinuedocular lubricant ointment 1 appl, BOTH EYES, Q2H, PRN Dry Eyes, # 15 gm, 3 Refill(s) Start Date: 04/19/20 Status: Orderedondansetron 4 mg, 2 mL, Route: IVP, Drug form: INJ, Q8H, Dosing Weight 70, kg, PRN Nausea & Vomiting, Start date: 04/16/20 16:57:00 TUBE FORMER OPERATOR, Duration: 30 day, Stop date: 05/16/20 16:56:00 TUBE FORMER OPERATOR, 0 Notes: (Same as: Zofran) MEDICATION WASTE Product Size: 4 mgProduct Wasted: ___ mg Start Date: 04/16/20 Stop Date: 04/19/20 Status: Discontinuedondansetron (ANES) Route: IV, Drug form: INJ, ONCE, Stop date: 04/13/20 11:04:00 TUBE FORMER OPERATOR Start Date: 04/13/20 Stop Date: 04/13/20 Status: Completedphenylephrine (ANES) Route: IV, Drug form: INJ, ONCE, Stop date: 04/13/20 10:58:00 TUBE FORMER OPERATOR Start Date: 04/13/20 Stop Date: 04/13/20 Status: CompletedPHOS-NaK 1 packet, Route: PO, Dosing Weight 70, kg, Q8H, Start date: 04/11/20 8:00:00 TUBE FORMER OPERATOR, Duration: 2 day, Stop date: 04/13/20 0:00:00 TUBE FORMER OPERATOR Start Date: 04/11/20 Stop Date: 04/11/20 Status: CanceledPHOS-NaK 2 packet, Route: PO, Drug Form: PDR/REC, Dosing Weight 70, kg, Q8H, Start date: 04/11/20 8:00:00 TUBE FORMER OPERATOR, Duration: 2 day, Stop date: 04/13/20 0:00:00 TUBE FORMER OPERATOR, 0 Notes: (Same as: Phos-NaK) Each 1.5 gm pkt has 250mg phosphorous. Mix w/2.5oz water and stir. Start Date: 04/11/20 Stop Date: 04/13/20 Status: CompletedPHOS-NaK 2 packet, Route: NG, Drug Form: PDR/REC, Dosing Weight 70, kg, Q8Hnow, Start date: 04/13/20 10:00:00CST, Duration: 2 day, Stop date: 04/15/20 7:00:00 TUBE FORMER OPERATOR, 0 Notes: (Same as: Phos-NaK) Each 1.5 gm pkt has 250mg phosphorous. Mix w/2.5oz water and stir. Start Date: 04/13/20 Stop Date: 04/15/20 Status: CompletedPlavix 75 mg, Route: PO, Drug form: TAB, Daily, Dosing Weight 70, kg, Start date: 04/12/20 9:00:00 TUBE FORMER OPERATOR, Duration: 30 day, Stop date: 05/11/20 9:00:00 TUBE FORMER OPERATOR Start Date: 04/12/20 Stop Date: 04/11/20 Status: Canceledpolyethylene glycol 3350 17 gm, Route: PO, Drug form: PWDR, Daily, Dosing Weight 70, kg, PRN Constipation, Start date: 04/16/20 16:57:00 TUBE FORMER OPERATOR, Duration: 30 day, Stop date: 05/16/20 16:56:00 TUBE FORMER OPERATOR, 0 Notes: Dissolve in 8 oz of water or juice.(Same as: Miralax) Start Date: 04/16/20 Stop Date: 04/19/20 Status: Discontinuedpolyethylene glycol 3350 17 gm, Route: PO, Drug form: PWDR, Daily, Dosing Weight 79.545, kg, Start date: 04/10/20 9:00:00 TUBE FORMER OPERATOR, Duration: 30 day, Stop date: 05/09/20 9:00:00 TUBE FORMER OPERATOR, 0 Notes: Dissolve in 8 oz of water or juice.(Same as: Miralax) Start Date: 04/10/20 Stop Date: 04/16/20 Status: Discontinuedpotassium chloride 20 mEq, 100 mL, Route: IVPB, Drug form: INJ, ONCE, Dosing Weight 70, kg, Start date: 04/10/20 12:25:00 TUBE FORMER OPERATOR, Stop date: 04/10/20 12:25:00 TUBE FORMER OPERATOR, Central Line, 0 Notes: (Same as: KCL) 10 mEq/100ml product recommended for peripheral line administration. Infuse no faster than 10 mEq/hr if given peripherally. Start Date: 04/10/20 Stop Date: 04/10/20 Status: Completedpotassium chloride 60 mEq, 3 tab, Route: PO, Drug form: ERTAB, ONCE, Dosing Weight 70, kg, Priority: STAT, Start date: 04/14/20 7:22:00 TUBE FORMER OPERATOR, Stop date: 04/14/20 7:22:00 TUBE FORMER OPERATOR, 0 Notes: (Same as: K-Dur 20)"Do Not Crush" Give with food and full glass of waterFor patients unable to swallow tablet, dissolve in one half glass of water. Allow about 2 minutes for the tablets to disintegrate. Stir before giving to prepare slurry and administer.Please exclude Patients with feedingtube less than 14 Wol[address] (Dobhoff, J-tube etc) and pediatric and patients. Start Date: 04/14/20 Stop Date: 04/14/20 Status: Discontinuedpotassium chloride 20 mEq/15 mL oral liquid (KCL) 60 mEq, 45 mL, Route: PO, Drug form: LIQ, ONCE, Dosing Weight 70, kg, Start date: 04/10/20 10:39:00 TUBE FORMER OPERATOR, Stop date: 04/10/20 10:39:00 TUBE FORMER OPERATOR, 0 Notes: (Same as: Potassium Chloride) Start Date: 04/10/20 Stop Date: 04/10/20 Status: Completedpotassium chloride 20 mEq/15 mL oral liquid (KCL) 20 mEq, 15 mL, Route: PO, Drug form: LIQ, Q2H, Dosing Weight 70, kg, Start date: 04/14/20 4:00:00 TUBE FORMER OPERATOR, Duration: 2 doses or times, Stop date: 04/14/20 6:00:00 TUBE FORMER OPERATOR, 0 Notes: (Same as: Potassium Chloride) Start Date: 04/14/20 Stop Date: 04/14/20 Status: Canceledpotassium chloride 20 mEq/15 mL oral liquid (KCL) 40 mEq, 30 mL, Route: PO, Drug form: LIQ, Q2H, Dosing Weight 70, kg, Start date: 04/14/20 4:00:00 TUBE FORMER OPERATOR, Duration: 2 doses or times, Stop date: 04/14/20 6:00:00 TUBE FORMER OPERATOR, 0 Notes: (Same as: Potassium Chloride) Start Date: 04/14/20 Stop Date: 04/14/20 Status: Completedpotassium chloride 20 mEq/15 mL oral liquid (KCL) 60 mEq, 45 mL, Route: PO, Drug form: LIQ, ONCE, Dosing Weight 70, kg, Start date: 04/14/20 7:35:00 TUBE FORMER OPERATOR, Stop date: 04/14/20 7:35:00 TUBE FORMER OPERATOR, 0 Notes: (Same as: Potassium Chloride) Start Date: 04/14/20 Stop Date: 04/14/20 Status: Completedpropofol (ANES) Route: IV, Drug form: INJ, ONCE, Stop date: 04/13/20 10:53:00 TUBE FORMER OPERATOR Start Date: 04/13/20 Stop Date: 04/13/20 Status: Completedracemic epinephrine 2.25% inhalation solution 11.25 mg, 0.5 mL, Route: NEB, Drug Form: SOLN, Dosing Weight 70, kg, RQ4H, Start date: 04/14/20 19:00:00 TUBE FORMER OPERATOR, Duration: 30 day, Stop date: 05/14/20 15:00:00 TUBE FORMER OPERATOR, 0 Notes: (racepinephrine *2.25% inh 0.5ml SOLN) (Same as:S2) Start Date: 04/14/20 Stop Date: 04/14/20 Status: Discontinuedrocuronium 50 mg, Route: IV, ONCE, Dosing Weight 70, kg, Start date: 04/14/20 20:44:00 TUBE FORMER OPERATOR, Stop date: 04/14/2020:44:00 TUBE FORMER OPERATOR Start Date: 04/14/20 Stop Date: 04/14/20 Status: Completedrocuronium (ANES) Route: IV, Drug form: INJ, ONCE, Stop date: 04/13/20 10:53:00 TUBE FORMER OPERATOR Start Date: 04/13/20 Stop Date: 04/13/20 Status: CompletedSaline Flush 0.9% 10 ml, Route: IVP, Drug Form: INJ, Dosing Weight 79.545, kg, Q12H, Start date: 04/10/20 9:00:00 TUBE FORMER OPERATOR,Duration: 30 day, Stop date: 05/09/20 21:00:00 TUBE FORMER OPERATOR, 0 Notes: (Same as: BD Posiflush) Start Date: 04/10/20 Stop Date: 04/19/20 Status: DiscontinuedSaline Flush 0.9% 10 ml, Route: IVP, Drug Form: INJ, Dosing Weight 79.545, kg, PRN, PRN Line Flush, Start date: 04/10/20 7:46:00 TUBE FORMER OPERATOR, Duration: 30 day, Stop date: 05/10/20 7:45:00 TUBE FORMER OPERATOR, 0 Notes: (Same as: BD Posiflush) Start Date: 04/10/20 Stop Date: 04/19/20 Status: DiscontinuedSaline Flush 0.9% 10 mL, Route: IVP, Drug Form: INJ, Dosing Weight 79.545, kg, PRN, PRN Line Flush, Start date: 04/10/20 0:38:00 TUBE FORMER OPERATOR, Duration: 30 day, Stop date: 05/10/20 0:37:00 TUBE FORMER OPERATOR, 0 Notes: (Same as: BD Posiflush) Start Date: 04/10/20 Stop Date: 04/13/20 Status: Discontinuedsenna 8.6 mg, 1 tab, Route: PO, Drug Form: TAB, Dosing Weight 79.545, kg, Q12H, Start date: 04/10/20 9:00:00 TUBE FORMER OPERATOR, Duration: 30 day, Stop date: 05/09/20 21:00:00 TUBE FORMER OPERATOR, 0 Notes: (Same as: Senokot) Start Date: 04/10/20 Stop Date: 04/16/20 Status: DiscontinuedSEROquel 25 mg, 1 tab, Route: PO, Drug form: TAB, Bedtime, Dosing Weight 70, kg, Priority: NOW, Start date: 04/11/20 2:45:00 TUBE FORMER OPERATOR, Duration: 30 day, Stop date: 05/10/20 21:00:00 TUBE FORMER OPERATOR, 0 Notes: (Same as: SEROquel) Start Date: 04/11/20 Stop Date: 04/16/20 Status: DiscontinuedSodium Chloride 3% inhalation solution 2 mL, Route: NEB, Drug Form: SOLN, Dosing Weight 70, kg, RQ12H, PRN Secretions, Start date: 04/13/2020:55:00 TUBE FORMER OPERATOR, Duration: 30 day, Stop date: 05/13/20 20:54:00 TUBE FORMER OPERATOR, 0 Notes: SEE RT DOCUMENTATION (Same as: Hypertonic Saline 3%, Inhalation) Start Date: 04/13/20 Stop Date: 04/19/20 Status: Discontinuedsodium phosphate + Sodium Chloride 0.9% IV 250 mL 45 mmol, 15 mL, Route: IVPB, ONCE, Dosing Weight 70, kg, Start date: 04/11/20 7:11:00 TUBE FORMER OPERATOR, Stop date: 04/11/20 7:11:00 TUBE FORMER OPERATOR, Phosphate level < 1.5 mg/dL, 0 Notes: [...] Weight 70, kg, Start date: 04/12/20 5:31:00 TUBE FORMER OPERATOR, Stop date: 04/12/20 5:31:00 TUBE FORMER OPERATOR, Phosphate level < 1.5 mg/dL, 0 Notes: Infuse over 4 hour. Do not infuse phosphorous concurrently in the same line as TPN or IVF that contains calcium. For double lumen central lines, phosphorous may be infused in a separate lumen from TPN. Start Date: 04/12/20 Stop Date: 04/12/20 Status: Completedsugammadex (ANES) Route: IV, Drug form: SOLN, ONCE, Stop date: 04/13/20 11:04:00 TUBE FORMER OPERATOR Start Date: 04/13/20 Stop Date: 04/13/20 Status: Completedvancomycin 1,000 mg, Route: IVPB, Drug form: INJ, [id number], Dosing Weight 70, kg, Start date: 04/15/20 5:00:00 TUBE FORMER OPERATOR, Duration: 7 day, Stop date: 04/21/20 21:00:00 TUBE FORMER OPERATOR, ABX Indication: Pneumonia, 0 Notes: TIME CRITICAL MEDICATION(Same As: Vancocin)Infusion rate< 1000 mg: infuse over 1 [id number] - 1500 mg: infuse over 1.5 [id number] - 2000 mg: infuse over 2 hours> 2001 mg: infuse over 2.5 hoursFor adult patients only: Round to nearest 250 mg per Medical Staff approval MEDICATION WASTE Product Size: 1000 mgProduct Wasted: ___ mg Start Date: 04/15/20 Stop Date: 04/16/20 Status: Discontinuedvancomycin 1.5 gm, 250 mL, Route: IV, Drug form: INJ, ONCE, Dosing Weight 70, kg, Start date: 04/14/20 20:02:00CST, Stop date: 04/14/20 20:02:00 TUBE FORMER OPERATOR, ABX Indication: Pneumonia, 0 Notes: TIME CRITICAL MEDICATIONSame as: Vancocin-NS (premixed)Infusion rate< 1000 mg: infuse over1 [id number] - 1500 mg: infuse over 1.5 [id number] - 2000 mg: infuse over 2 hours> 2001 mg: infuse over 2.5 hours Start Date: 04/14/20 Stop Date: 04/14/20 Status: Completedvancomycin 2,000 mg, 500 mL, Route: IVPB, Drug form: SOLN, ONCE, Dosing Weight 79.545, kg, Time Critical Medication, Priority: STAT, Start date: 04/10/20 3:59:00 TUBE FORMER OPERATOR, Stop date: 04/10/20 3:59:00 TUBE FORMER OPERATOR, ABX Indication: Pneumonia, 0 Notes: TIME CRITICAL MEDICATIONSame as: Vancocin Infusion rate< 1000 mg: infuse over 1 [id number] - 1500 mg: infuse over 1.5 [id number] - 2000 mg: infuse over 2 hours> 2001 mg: infuse over 2.5 hours Start Date: 04/10/20 Stop Date: 04/10/20 Status: Discontinuedvancomycin 1.5 gm, 250 mL, Route: IV, Drug form: INJ, ONCE, Dosing Weight 79.545, kg, Start date: 04/10/20 7:53:00 TUBE FORMER OPERATOR, Stop date: 04/10/20 7:53:00 TUBE FORMER OPERATOR, ABX Indication: Pneumonia, 0 Notes: TIME CRITICAL MEDICATIONSame as: Vancocin-NS (premixed)Infusion rate< 1000 mg: infuse over1 [id number] - 1500 mg: infuse over 1.5 [id number] - 2000 mg: infuse over 2 hours> 2001 mg: infuse over 2.5 hours Start Date: 04/10/20 Stop Date: 04/10/20 Status: Completedvancomycin 1.2 gm, Route: IV, Q12H, Dosing Weight 79.545, kg, Start date: 04/10/20 21:00:00 TUBE FORMER OPERATOR, Duration: 7 day, Stop date: 04/17/20 9:00:00 TUBE FORMER OPERATOR, ABX Indication: Pneumonia Start Date: 04/10/20 Stop Date: 04/10/20 Status: Discontinuedvancomycin 1.25 gm, 250 mL, Route: IVPB, Drug form: INJ, [id number], Dosing Weight 70, kg, Start date: 04/10/20 20:00:00 TUBE FORMER OPERATOR, Duration: 7 day, Stop date: 04/17/20 8:00:00 TUBE FORMER OPERATOR, ABX Indication: Pneumonia, 0 Notes: TIME CRITICAL MEDICATIONSame as: Vancocin-NS (premixed)Infusion rate< 1000 mg: infuse over1 [id number] - 1500 mg: infuse over 1.5 [id number] - 2000 mg: infuse over 2 hours> 2001 mg: infuse over 2.5 hours Start Date: 04/10/20 Stop Date: 04/12/20 Status: DiscontinuedVersed 2 mg, 2 mL, Route: IVP, Drug form: INJ, ONCE, Dosing Weight 70, kg, Start date: 04/14/20 21:51:00 TUBE FORMER OPERATOR, Stop date: 04/14/20 21:51:00 TUBE FORMER OPERATOR, 0 Notes: (Same as: Versed) MEDICATION WASTE Product Size: 2 mgProduct Wasted: ___ mg Start Date: 04/14/20 Stop Date: 04/14/20 Status: CompletedVersed 2 mg, 2 mL, Route: IVP, Drug form: INJ, ONCE, Dosing Weight 70, kg, Start date: 04/15/20 3:40:00 TUBE FORMER OPERATOR, Stop date: 04/15/20 3:40:00 TUBE FORMER OPERATOR, 0 Notes: (Same as: Versed) MEDICATION WASTE Product Size: 2 mgProduct Wasted: ___ mg Start Date: 04/15/20 Stop Date: 04/15/20 Status: Completed Results Most recent to oldest 1 2 3 [Reference Range]: Procalcitonin Lvl 0.86 ng/mL 3.97 ng/mL 1 12.83 ng/mL 2 [0.00-0.10 ng/mL] *HI* *CRIT* *CRIT* (04/15/20 12:16 AM) (04/12/20 3:24 AM) (04/10/20 2:33 AM) Neutrophils # [1.5-8.1 7.6 K/CMM 5.5 K/CMM 5.1 K/CMM K/CMM] (04/16/20 3:08 AM) (04/15/20 12:16 AM) (04/14/20 1:42 AM) Lymphocytes # [1.0-5.5 0.8 K/CMM 0.9 K/CMM 1.9 K/CMM K/CMM] *LOW* *LOW* (04/14/20 1:42 A M) (04/16/20 3:08 AM) (04/15/20 12:16 AM) Monocytes # [0.0-0.8 0.1 K/CMM 0.4 K/CMM 0.3 K/CMM K/CMM] (04/16/20 3:08 AM) (04/15/20 12:16 AM) (04/14/20 1:42 AM) BNP [<=100 pg/mL] 1275 pg/mL *HI* [...] by PCR Negative (04/10/20 8:40 AM) eGFR 115 mL/min/1.73m2 3 114 mL/min/1.73m2 4 109 mL/m in/1.73m2 5 *NA* *NA* *NA* (04/16/20 3:08 AM) (04/15/20 12:16 AM) (04/14/20 6:14 PM) ABO/Rh O NEG *Unknown* (04/10/20 2:33 AM) [...] uMol/L (04/10/20 8:40 AM) AGAP [10.0-20.0 mEq/L] 7.4 mEq/L 8.5 mEq/L 7.3 mEq/L *LOW* *LOW* *LOW* (04/16/20 3:08 AM) (04/15/20 12:16 AM) (04/14/20 6:14 PM) Anisocyte [None Seen] 1+ *ABN* (04/10/20 8:40 AM) AST [0-37 unit/L] 95 unit/L 126 unit/L *HI* *HI* (04/12/20 3:24 AM) (04/10/20 8:40 AM) Bands [0.0-11.0 %] 7.0 % 4.0 % 16.0 % (04/16/20 3:08 AM) (04/12/20 3:24 AM) *HI* (04/11/20 1:14 AM ) Basophils [0.0-1.0 %] 0.1 % 0.1 % 0.1 % (04/15/20 12:16 AM) (04/14/20 1:42 AM) (04/13/20 4:37 AM) BUN [7-22 mg/dL] 13 mg/dL 14 mg/dL 13 mg/dL (04/16/20 3:08 AM) (04/15/20 12:16 AM) (04/14/20 6:14 PM) Calcium Lvl [8.5-10.5 8.5 mg/dL 8.3 mg/dL 8.2 mg/dL mg/dL] (04/16/20 3:08 AM) *LOW* *LOW* (04/15/20 12:16 AM) (04/14/20 6: 14 PM) Chloride Lvl [95-109 107 mEq/L 108 mEq/L 109 mEq/L mEq/L] (04/16/20 3:08 AM) (04/15/20 12:16 AM) (04/14/20 6:14 PM) CO2 [24-32 mEq/L] 32 mEq/L 28 mEq/L 28 mEq/L (04/16/20 3:08 AM) (04/15/20 12:16 AM) (04/14/20 6:14 PM) Creatinine Lvl [0.50-1.40 0.52 mg/dL 0.53 mg/dL 0.62 m g/dL mg/dL] (04/16/20 3:08 AM) (04/15/20 12:16 AM) (04/14/20 6:14 PM) CRP [<=2.9 mg/L] 55.9 mg/L *HI* (04/15/20 12:16 AM) Bili Direct [0.0-0.3 0.1 mg/dL 0.2 mg/dL mg/dL] (04/12/20 3:24 AM) (04/10/20 8:40 AM) Eosinophils [0.0-4.0 %] 0.1 % (04/14/20 1:42 AM) Globulin [2.7-4.2 g/dL] 3.1 g/dL 2.8 g/dL (04/12/20 3:24 AM) (04/10/20 8:40 AM) Glucose Lvl [70-99 mg/dL] 140 mg/dL 136 mg/dL 119 mg /dL *HI* *HI* *HI* (04/16/20 3:08 AM) (04/15/20 12:16 AM) (04/14/20 6:14 PM) Hct [36.0-48.0 %] 29.9 % 30.2 % 33.8 % *LOW* *LOW* *LOW* (04/16/20 3:08 AM) (04/15/20 12:16 AM) (04/14/20 1:42 AM) Hgb [12.0-16.0 g/dL] 9.9 g/dL 9.9 g/dL 11.1 g/dL *LOW* *LOW* *LOW* (04/16/20 3:08 AM) (04/15/20 12:16 AM) (04/14/20 1:42 AM) Hgb A1C [<=5.6 %] 5.1 % (04/10/20 8:40 AM) INR [0.85-1.17] 1.11 1.32 1.30 (04/13/20 4:37 AM) *HI* *HI* (04/11/20 12:29 PM) (04/10/20 8:40 AM) Potassium Lvl [3.5-5.1 4.4 mEq/L 4.5 mEq/L 5.3 mEq/L mEq/L] (04/16/20 3:08 AM) (04/15/20 12:16 AM) *HI* (04/14/20 6:14 P M) Lactic Acid Lvl [0.5-2.2 1.9 mMol/L 1.2 mMol/L 2.1 mMo l/L mMol/L] (04/14/20 6:13 AM) (04/12/20 3:24 AM) (04/11/20 6 :05 PM) Atypical Lymphs [<=0.0 %] 0.0 % 0.0 % 0.0 % (04/16/20 3:08 AM) (04/12/20 3:24 AM) (04/11/20 1 :14 AM) Lymphocytes [20.0-40.0 %] 9.0 % 12.9 % 25.6 % *LOW* *LOW* (04/14/20 1:42 A M) (04/16/20 3:08 AM) (04/15/20 12:16 AM) MCH [27.0-31.0 pg] 28.0 pg 27.9 pg 28.3 pg (04/16/20 3:08 AM) (04/15/20 12:16 AM) (04/14/20 1:42 AM) MCHC [32.0-36.0 g/dL] 33.2 g/dL 32.9 g/dL 32.9 g/dL (04/16/20 3:08 AM) (04/15/20 12:16 AM) (04/14/20 1:42 AM) MCV [80.0-98.0 fL] 84.5 fL 84.8 fL 86.0 fL (04/16/20 3:08 AM) (04/15/20 12:16 AM) (04/14/20 1:42 AM) Metamyelocytes [0.0-1.0 %] 1.0 % 3.0 % (04/16/20 3:08 AM) *HI* (04/10/20 8:40 AM) Magnesium Lvl [1.8-2.4 2.3 mg/dL 2.0 mg/dL 2.3 mg/dL mg/dL] (04/16/20 3:08 AM) (04/15/20 12:16 AM) (04/14/20 6:14 PM) Monocytes [2.0-12.0 %] 1.0 % 6.4 % 4.5 % *LOW* (04/15/20 12:16 AM) (04/14/20 1: 42 AM) (04/16/20 3:08 AM) MPV [7.4-10.4 fL] 7.3 fL 7.2 fL 7.4 fL *LOW* *LOW* (04/14/20 1:42 A M) (04/16/20 3:08 AM) (04/15/20 12:16 AM) Myelocytes [<=0.0 %] 2.0 % *HI* (04/16/20 3:08 AM) Sodium Lvl [135-145 mEq/L] 142 mEq/L 140 mEq/L 139 m Eq/L (04/16/20 3:08 AM) (04/15/20 12:16 AM) (04/14/20 6:14 PM) Phosphorus [2.5-4.5 mg/dL] 3.7 mg/dL 3.6 mg/dL 3.1 m g/dL (04/16/20 3:08 AM) (04/15/20 12:16 AM) (04/14/20 6:14 PM) Platelet [133-450 K/CMM] 254 K/CMM 209 K/CMM 229 K/C MM (04/16/20 3:08 AM) (04/15/20 12:16 AM) (04/14/20 1:42 AM) Segs [45.0-75.0 %] 80.0 % 80.6 % 69.7 % *HI* *HI* (04/14/20 1:42 A M) (04/16/20 3:08 AM) (04/15/20 12:16 AM) Total Protein [6.4-8.4 5.3 g/dL 5.4 [...] Detected] (04/10/20 2:33 AM) RBC [4.20-5.40 M/CMM] 3.54 M/CMM 3.56 M/CMM 3.94 M/CMM *LOW* *LOW* *LOW* (04/16/20 3:08 AM) (04/15/20 12:16 AM) (04/14/20 1:42 AM) RBC Morph [Normal] Normal (04/13/20 4:37 AM) RDW [11.5-14.5 %] 16.5 % 16.6 % 16.4 % *HI* *HI* *HI* (04/16/20 3:08 AM) (04/15/20 12:16 AM) (04/14/20 1:42 AM) Bili Total [0.2-1.3 mg/dL] 0.3 mg/dL 0.6 mg/dL (04/12/20 3:24 AM) (04/10/20 8:40 AM) Troponin-I [0.00-0.40 0.17 ng/mL 3.02 ng/mL 6 4.52 ng/mL 7 ng/mL] (04/15/20 8:08 AM) *CRIT* *CRIT* (04/11/20 6:05 PM) (04/11/20 12:29 PM) Troponin-T [0.000-0.100 0.119 ng/mL 8 ng/mL] *CRIT* (04/15/20 8:08 AM) UA Amorph Denise [None Seen Occasional /HPF /HPF] *NA* (04/16/20 7:51 AM) UA Bacteria [None Seen Occasional /HPF /HPF] *NA* (04/16/20 7:51 AM) UA Bili [Negative] Negative Negative *NA* *NA* (04/16/20 7:51 AM) (04/10/20 2:35 AM) UA Blood [Negative] Negative Large (04/16/20 7:51 AM) *ABN* (04/10/20 2:35 AM) UA Color [Yellow] Yellow Yellow *NA* *NA* (04/16/20 7:51 AM) (04/10/20 2:35 AM) UA Glucose [Negative Negative mg/dL Negative mg/dL mg/dL] (04/16/20 7:51 AM) *NA* (04/10/20 2:35 AM) UA Hyal Cast [0-2 /LPF] 4 /LPF *HI* (04/10/20 2:35 AM) UA Ketones [Negative Negative mg/dL Negative mg/dL mg/dL] *NA* *NA* (04/16/20 7:51 AM) (04/10/20 2:35 AM) UA Leuk Est [Negative] Negative Negative (04/16/20 7:51 AM) (04/10/20 2:35 AM) UA Mucus [None Seen /LPF] Few /LPF Few /LPF *NA* *NA* (04/16/20 7:51 AM) (04/10/20 2:35 AM) UA Nitrite [Negative] Negative Negative (04/16/20 7:51 AM) (04/10/20 2:35 AM) UA pH [5.0-8.0] 7.0 (04/16/20 7:51 AM) UA pH [5.0-8.0] 6.0 (04/10/20 2:35 AM) UA Protein [Negative Negative mg/dL Negative mg/dL mg/dL] (04/16/20 7:51 AM) (04/10/20 2:35 AM) UA RBC [0-2 /HPF] 2 /HPF 5 /HPF (04/16/20 7:51 AM) *HI* (04/10/20 2:35 AM) U Sodium 135 mEq/L *NA* (04/16/20 7:51 AM) UA Spec Grav [<=1.030] 1.015 (04/16/20 7:51 AM) UA Spec Grav [<=1.030] 1.016 (04/10/20 2:35 AM) UA Sq Epi [Few /LPF] Occasional /LPF *NA* (04/16/20 7:51 AM) UA Sq Epi None Seen *NA* (04/10/20 2:35 AM) UA Turbidity [Clear] Clear Clear (04/16/20 7:51 AM) (04/10/20 2:35 AM) UA Urobilinogen [0.1-1.0 0.2 EU/dL EU/dL] (04/16/20 7:51 AM) UA Urobilinogen [0.1-1.0 2.0 mg/dL mg/dL] *HI* (04/10/20 2:35 AM) UA WBC [0-5 /HPF] 2 /HPF 1 /HPF (04/16/20 7:51 AM) (04/10/20 2:35 AM) U Osmolality [300-800 455 mOsm/kg mOsm/kg] (04/16/20 7:51 AM) Vanco Lvl 11.6 ug/ml *NA* (04/11/20 7:48 PM) WBC [3.7-10.4 K/CMM] 8.7 K/CMM 6.8 K/CMM 7.3 K/CMM (04/16/20 3:08 AM) (04/15/20 12:16 AM) (04/14/20 1:42 AM) Aspergillus galactomannan NOT DETECTED 9 Ag *NA* (04/10/20 1:28 PM) ACT (TEG) Rapid [86-118 105 seconds seconds] (04/10/20 2:33 AM) Estimated % Lysis Rapid 0.8 % [0.0-7.5 %] (04/10/20 2:33 AM) Split Point Rapid 0.5 minutes *NA* (04/10/20 2:33 AM) Ca Ion WB [1.05-1.25 1.06 mMol/L 1.09 mMol/L 1.09 mMol/L mMol/L] (04/16/20 3:08 AM) (04/15/20 12:16 AM) (04/14/20 1:42 AM) Ca Norm WB [1.05-1.25 1.09 mMol/L 1.10 mMol/L 1.01 mMol/ L mMol/L] (04/16/20 3:08 AM) (04/15/20 12:16 AM) *LOW* (04/14/20 1:42 A M) Micro? Performed (04/16/20 7:51 AM) Influenza A PCR [Negative] Negative *NA* (04/10/20 8:40 AM) Influenza B PCR [Negative] Negative *NA* (04/10/20 8:40 AM) RSV PCR [Negative] Negative *NA* (04/10/20 8:40 AM) Source Respiratory Panel Nasophrngl Swb PCR *NA* (04/10/20 8:40 AM) Aspergillus galactomannan <0.50 Index *NA* (04/10/20 1:28 PM) 1Result Comment: Critical Result(s) called to Cesar Morris at 04/12/2020 04:40 by . Read back OK.2Result Comment: Critical Result(s) called to BRENDEN Kearns at 04/10/2020 [...] estimated BMI.6Result Comment: Critical Result(s) called to Cesar Morris at 04/11/2020 19:44 by FNS. Read back OK.7Result Comment: Critical Result(s) called to Mon. Forrest at 04/11/2020 14:15 by BLJ. Read back OK.8 Result Comment: Critical Result(s) called to Faby Guzman at 04/15/2020 09:38 by . Read back OK.9Result Comment: REFERENCE RANGE: <0.50, NOT DETECTED A negative result does not exclude invasive aspergillosis. Follow-up testing may be indicated for high-risk patients. Test Performed at: [facility] [address] [place] [phone] Bernard Martinez MDMicrobiology Reports TEST:Culture: Respiratory w/Gram Stain STATUS:Auth (Verified) BODY SITE: SOURCE:Sputum COLLECTED DATE/TIME:04/15/20 8:44 AMFINAL REPORTFew Yeast Normal Respiratory Kate IsolatedSTAIN REPORTGram Stain [facility]: Urine STATUS:Auth (Verified) BODY SITE: SOURCE:Urine, Catheterized COLLECTED DATE/TIME:04/14/20 6:13 AMFINAL REPORTNo GrowthTEST:Culture: Respiratory w/Gram Stain STATUS:Auth (Verified) BODY SITE: SOURCE:Tracheal Aspirate COLLECTED DATE/TIME:04/10/20 8:40 AMFINAL REPORTModerate Staphylococcus aureus IsolatedSTAIN REPORTGram Stain Performed By: [facility] ORGANISM:Staphylococcus aureusORGANISM:Staphylococcus aureus Immunizations Given and Recorded [...] Completed Biopsy of breast Completed Creation of JEWEL GAUGER shunt Complet ed Excision of ovary Completed [...] 04/10/20 Assessment and Plan Extracted from: Title: Progress Note Author: Tavia Mckeon) Date: 04/19/20 Ms. 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 Goals of Care/Palliative: - Pt transitioned off the vent and meg g home today. - Hospice organized, and ready for disc harge today this am -Performed education on sleep wake cycl es and minimizing risk of delirium. -Performed education on bolus tube feed s. Supportive Medicine makes the following recommendations for Comfort Measures when family is ready. These orders can be easily accessed via the Comfort Care MPP: Respiratory failure: -Pt comfortable on RA at this time. O 2 if needed Pain: - Recommend morphine 4mg IVP q4 hr EVON. - Recommend morphine 2mg IVP q1 hr PRN. Dyspnea: - As opioids alleviate dyspnea & air hu nger in palliative patients, will recommend pain regimen as noted above. Anxiety, agitation: - Recommend Ativan 1mg IVP q4 hrs PRN. Terminal delirium: - Recommend Haldol 0.5mg q2 hrs PRN. Pulmonary congestion: - Recommend glycopyrrolate 0.4mg IV q6 hrs. Autonomic dysfunction/fever: - Recommend Tylenol 650mg PEG q6 hrs CT N. Constipation: - Recommend bisacodyl 10mg CT daily PRN . Spiritual support: - Saw patient with Terminal Computer Operator today. Thank you for the opportunity to par ticipate in the care of this patient.For any questions or concerns, please page us via the page dry cleaning machine operator or via the pager below. Tavia Mckeon M.D.| #[phone] Palliative Care Fellow Division of Geriatric and Palliative Me [facility] Department of Internal Medicine [employer]| [phone] #[phone] Exchange Underwriting Consultant| #[phone] Division of Gynecologic Oncology Department of Obstetrics, Gynecology & Reproductive Sciences [facility] Office and Answering Service | Pager [phone] | Acute hypoxemic respiratory failure (J96.01) Agitation(R45.1) Altered mental status(R41.82), Alt ered mental status(R41.82) Anxiety(F41.9) Cerebral meningioma(D32.0) Constipation(K59.00) Constipation due to opioid therapy(K 59.03) Convulsive seizure(R56.9) Delirium(R41.0) Dyspnea(R06.00) Fever(R50.9) Goals of care, counseling/discussion (Z71.89) Hypoxic(R09.02) Meningioma(D32.9) Midline shift of brain(R90.89) Pain, unspecified(R52) Palliative care by specialist(Z51.5) Pulmonary congestion(R09.89) Extracted from: Title: Supportive Medicine Consult Author: Colette Kennedy Date: 04/15/20 Note Ms. Winston is a 44 yo F w/ a PMHx of diff use, atypicalrecurrent meningiomas S/Pcraniotomy and JEWEL GAUGER shunt and gamma knife radiosurgery 04/06,congenital blindness, [...] she is legal guardian and has paperwork. [facility] copy. [...] Thank you for the opportunity to partici wets in the care of this patient.We will follow along with you. For any questions or concerns, please page us via the page dry cleaning machine operator or via the pager below. Colette Kennedy PA-C Supportive Medicine Physician [place] Supportive Medicine Pager: #[phone] Extracted from: Title: MICU History and Physical Author: Arcadio Barcenas te: 04/10/20 NEURO: # hx of recurrent meningiomas s/p JEWEL GAUGER marie nt, craniotomy, and gamma knife radiosurgery [...] Aspiration pneumonia - continue with mechanical ventilation f or now - rpt CXR GI: - KUB [...] radial art line, R fem central line, ellsworth catheter DVT ppx: SCD GI ppx: famotidine Code: Full Altered mental status(R41.82) Hypoxic(R09.02) Meningioma(D32.9) Septic shock(R65.21)
--- OUTSIDE RECORDS SUMMARY | 2020-05-20 11:10 | XMS REPORT | Continuity of Care Document ---
:1975 Author Organization [facility] t Address [address] [place] [address] Care Team Providers Name Role Phone [facility] Attending Clinician Agata Lara Attending Clinician Julia Ruiz Attending Clinician Meño Serra Attending Clinician Roly Attending Clinician BERENICE Attending Clinician Unavailable RAJ Attending Clinician Unavailable VAMSI Attending Clinician Unavailable SYLVIE Attending Clinician Unavailable IZABEL Attending Clinician Unavailable Sherita THOMAS Attending Clinician [facility] Attending Clinician Unavailable ALFA Attending Clinician Unavailable JESENIA Attending Clinician Unavailable Naye Melton Attending Clinician Courtney Martinez Attending Clinician Doctor Unassigned, Name Attending Clinician Unavailable [facility] Admitting Clinician Maru Admitting Clinician Lurdes Larose Admitting Clinician Sam Frost Admitting Clinician Enio Clemons Admitting Clinician Problems Condition Condition Condition Status Onset Resolution Last Treating Co mments Source Name Details Category Date Date Treatment Clinician Date RESP Diagnosis Active 2019-052020-04-25 Mem oria DISTRESS 2-08 21:43:00 l RESP 00:00: Matty DISTRESS 00 Active 04/10/2020 [facility] MENINGIOMA Diagnosis Active 2019-052020-04-11 Memoria D32.0 0- 12:13:00 l 00:00: Belk MENINGIOMA 00 D32.0 Active 02/28/2020 [facility] D32.0 Diagnosis Active 2020-01-19 Mem oria 9- 13:08:00 l D32.0 00:00: Matty 00 Active 01/11/2020 [facility] WORSENING Diagnosis Active 2019-12-07 Memoria BRAIN 8- 12:22:00 l TUMOR 00:00: Matty WORSENING 00 BRAIN TUMOR Active 12/05/2019 [facility] BRAIN Diagnosis Active 2015-07-05 Mem oria SHUNT NOT 07-04 16:24:00 l DRAINING BRAIN 00:00: Belk SHUNT NOT 00 DRAINING Active 07/05/2015 [facility] MENINGIOMA Diagnosis Active 2015-07-26 Memoria CA 2-24 13:55:00 l 00:00: Belk MENINGIOMA 00 CA Active 6 [facility] PAIN Diagnosis Active 2015-05-09 Mem oria -06 15:08:00 l PAIN 00:00: Matty 00 Active 05/09/2015 [facility] G40.901 Diagnosis Active 2015-05-09 Me moria -06 15:09:00 l G40.901 00:00: Matty 00 Active 05/09/2015 [facility] G40.219 Diagnosis Active 2015-08-22 Me moria 06 09:47:00 l G40.219 00:00: Matty 00 Active 05/09/2015 [facility] History of History of Problem Resolve Univers [...] Active Unive rs insipidus insipidus ity of [place] [facility] Localizati Localizati Problem Active U nivers on-related on-related it y of symptom[place] epilepsy 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, seizures, intractabl intractabl e, without e, without status status epilepticu epilepticu s s Brain Brain Problem Active Univers tumor tumor ity of [place] [facility] Sciatica Sciatica Problem Active Unive rs of left of left ity of side side [place] [facility] Adrenal Adrenal Problem Active Univers insufficie insufficie it y of ncy ncy [place] [facility] Vitamin D Vitamin D Problem Active Uni vers insufficie insufficie it y of ncy ncy [place] [facility] Hypothyroi Hypothyroi Problem Active U nivers dism dism ity of [place] [facility] Gastroesop Problem Resolve 2020-04-21 Memoria hageal d 22:41:27 l reflux Belk disease Gastroesop (disorder) hageal reflux disease (disorder) Resolved Problem 04/21/2020 [facility] Blindness Problem Resolve 2020-04-21 M emoria - both d 22:41:27 l eyes Matty (disorder) Blindness - both eyes (disorder) Resolved Problem 04/21/2020 [facility] Blood clot Problem Resolve 2015-07-29 Memoria (morpholog d 00:31:29 l ic Blood Matty abnormalit clot y) (morpholog ic abnormalit y) Resolved Problem 07/29/2015 [facility] Intracrani Problem Resolve 2020-04-21 Memoria al tumor d 22:41:27 l (disorder) Parveen n Intracrani al tumor (disorder) Resolved Problem 04/21/2020 [facility] Cyst of Problem Resolve 2020-04-21 Mem oria breast d 22:41:27 l (disorder) Cyst of Her bonilla breast (disorder) Resolved Problem 04/21/2020 [facility] Epilepsy Problem Resolve 2020-04-21 Me moria (disorder) d 22:41:27 l Epilepsy Parveen n (disorder) Resolved Problem 04/21/2020 [facility] Hearing Problem Resolve 2020-04-21 Mem oria loss d 22:41:27 l (finding) Hearing Herm naye loss (finding) Resolved Problem 04/21/2020 [facility] Hypothyroi Problem Resolve 2020-04-21 Memoria dism d 22:41:27 l (disorder) Parveen n Hypothyroi dism (disorder) Resolved Problem 04/21/2020 [facility] Cyst of Problem Resolve 2020-04-21 Mem oria ovary d 22:41:27 l (disorder) Cyst of Her bonilla ovary (disorder) Resolved Problem 04/21/2020 [facility] Seizure Problem Resolve 2020-04-21 Mem oria (finding) d 22:41:27 l Seizure Matty (finding) Resolved Problem 04/21/2020 [facility] Blindness Problem Active 2020-04-21 Me moria AND/OR 22:41:27 l vision Belk impairment Blindness level AND/OR (disorder) vision impairment level (disorder) Active Problem 04/21/2020 [facility] Mood Problem Active 2020-04-21 Memor ia disorder 22:41:27 l (disorder) Mood Parveen n disorder (disorder) Active Problem 04/21/2020 [facility] Neoplasm Problem Active 2020-04-21 Mem oria of 22:41:27 l uncertain Neoplasm Her bonilla behavior of of uncertain meninges behavior (disorder) of meninges (disorder) Active Problem 04/21/2020 [facility] Panhypopit Problem Active 2020-04-21 M emoria uitarism 22:41:27 l (disorder) Parveen n Panhypopit uitarism (disorder) Active Problem 04/21/2020 [facility] Seizure Problem Active 2020-04-21 [facility] ra[facility] disorder 22:41:27 l (disorder) Seizure Her bonilla disorder (disorder) Active Problem 04/21/2020 [facility] EPILEPSY, Diagnosis Active 2015-05-09 Memoria UNSP, NOT 15:09:00 l INTRACTABL Parveen n E, WITH ST EPILEPSY, UNSP, NOT INTRACTABL E, WITH ST Active [facility] 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 Memoria SYMPTC EPI 09:47:00 l W CMPLX Belk PART SEIZ, 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, Active [facility] NEOPLASM Diagnosis Active 2015-08-22 M emoria OF 09:47:00 l UNSPECIFIE NEOPLASM He rmann D BEHAVIOR OF OF BRAI UNSPECIFIE D BEHAVIOR OF BRAI Active [facility] BENIGN Diagnosis Active 2015-07-26 Mem oria NEOPLASM 13:55:00 l OF 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 [facility] CEREBRAL Diagnosis Active 2019-12-07 M emoria EDEMA 12:22:00 l CEREBRAL Parveen n EDEMA Active [facility] SEVERE Diagnosis Active 2020-04-25 Mem oria SEPSIS 21:43:00 l WITH SEVERE Matty SEPTIC SEPSIS SHOCK WITH SEPTIC SHOCK Active [facility] Discharge Problem 2015-2015-07-08 2015-07-08 Memoria Diagnosis: 3-03 06:30:00 06:30:00 l Vomiting, 06:00: Matty unspecifie Discharge 00 d Diagnosis: Vomiting, unspecifie d 07/05/2015 07/08/2015 [facility] Discharge Problem 2015-2015-07-08 2015-07-08 Memoria Diagnosis: 3- 06:30:00 06:30:00 l Vomiting 06:00: Matty in adult Discharge 00 Diagnosis: Vomiting in adult 6 07/08/2015 [facility] Allergies, Adverse Reactions, Alerts Allergy Allergy Status Severity Reaction(s) Onset Inactive Treating Comm ents Source Name Type Date Date Clinician Iodine Allergy Active Univers REMI to drug ity of (finding [place] [facility] Penicill Allergy Active Univers ins to drug ity of (finding [place] Physici ans penicill penicill Active Memori a ins ins l Bel[place] seafood seafood Active Memoria l Matty iodine iodine Active Memoria topical topical l Belk Family History Family Member Diagnosis Comments Start Date Stop Date Source Unknown Family Family history of Family History University of Member Heart Disease [place] [facility] Mother Family history of Univers ity of diabetes mellitus [place] [facility] Mother Family history of Univers ity of hypertension [place] [facility] Mother Family history of Univers ity of thyroid disease [place] [facility] Social History Social Habit Start Date Stop Date Quantity Comments Source Social History 2015-05-09 2015-05-09 [facility] subha 23:46:54 23:46:54 Smoking Status Start Date Stop Date Source Never smoked tobacco (finding) U [facility] Physicians Medications Ordered Filled Start Stop Current Ordering Indication Dosage Frequency Signature Comments Components Source Medication Medication Date Date Medication? Clinician (SIG) Name Name morphine 4 2019-05 Yes 4 mg, IVP, M emoria mg/mL-NaCl 2-17 Q4H, # 60 l 0.9% 15:59: mL, 0 Belk preservativ 00 Refill(s) e-free intravenous solution LORazepam 2 2019-05 Yes 1 mg = 0.5 Memoria mg/mL 2-17 mL, IVP, l injectable 15:59: Q4H, PRN Her bonilla solution 00 as needed for anxiety, # 15 mL, 2 Refill(s) haloperidol 2019-05 Yes 0.5 mg, Mem oria 5 mg/mL 2-17 IV, Q2H, l injectable 15:59: PRN Other He rmann solution 00 -See Comment, PRN delirium, X 30 day, # 30 mL, 0 Refill(s) glycopyrrol 2019-05 Yes 0.4 mg, Mem oria ate 0.2 2-17 IV, Q6H, # l mg/mL 15:59: 30 mL, 0 Belk intravenous 00 Refill(s) solution Acetaminoph 2019-05 Yes 650 mg = 2 Memoria en 325 MG 2-17 tab, GT, l Oral Tablet 15:59: Q6H, # 90 H ermann 00 tab, 0 Refill(s) bisacodyl 2019-05 Yes 10 mg = 1 Mem oria 10 mg 2-17 supp, MA, l rectal 15:59: Daily, PRN Lanny nn suppository 00 Constipati on, # 90 supp, 2 Refill(s) ocular 2019-05 Yes 1 appl, Memoria lubricant 2-17 BOTH EYES, l ointment 15:59: Q2H, PRN Lanny nn 00 Dry Eyes, # 15 gm, 3 Refill(s) Dexamethaso 2019-05 Yes 8 mg = 2 Me moria ne 4 MG 2-17 tab, PO, l Oral Tablet 15:59: Q8H-05, X H ermann 00 30 day, # 180 tab, 2 Refill(s) lamotrigine 2019-05 Yes 400 mg = 2 Memoria 200 MG 2-17 tab, PO, l Disintegrat 15:59: Q12H, # Her bonilla ing Tablet 00 120 tab, 3 Refill(s) Levetiracet 2019-05 Yes 1,500 mg = Memoria am 750 MG 2-17 2 tab, PO, l Oral Tablet 15:59: Q12H, # Her bonilla 00 120 tab, 2 Refill(s) Morphine 2019-05 No Notes: Memoria 2-16 (Same l 02:00: as:MORPhin e Sulfate) glycopyrron 2019-05 No Notes: [facility] raeann ium 2-16 (Same as: l 00:00: Robinul) Acetaminoph 2019-05 No Notes: Do M emoria en 2-16 not exceed l 00:00: 4 gm/day. (Same as: Tylenol) Morphine 2019-05 No Notes: Memoria 2-15 (Same l 22:00: as:MORPhin e Sulfate) Bisacodyl 2019-05 No Notes: Memori a 2-15 (Same As: l 20:10: Dulcolax, Bisco-Lax) Haldol 2019-05 No Notes: Memoria 2-15 (Same as: l 20:07: Haldol) Ativan 2019-05 No Notes: Memoria 2-15 (Same as: l 20:03: Ativan) Levetiracet 2019-05 No Notes: [facility] raeann am 1000 MG 2-15 Same as l Oral Tablet 03:00: Keppra Herm naye 00 Morphine 2019-05 No Notes: Memoria 2-14 (Same l 22:57: as:MORPhin Belk 00 e Sulfate) POLYETHYLEN 2019-05 No Notes: [facility] rae[facility] E GLYCOL 2-14 Dissolve l 3350 22:57: in 8 oz of Belk water or juice. (Same as: Miralax) Lorazepam 2019-05 No Notes: Memori a 2-14 (Same as: l 22:57: Ativan) Belk Ondansetron 2019-05 No Notes: [facility] raeann 2-14 (Same as: l 22:57: Zofran) MEDICATION WASTE Product Size: 4 mg Product Wasted: ___ mg Acetaminoph 2019-05 No Notes: Max Memoria en 2-14 acetaminop l 22:57: hen = 4000 Belk 00 mg/day (4 gm/day). (Same as: Tylenol) ocular 2019-05 No Notes: Memoria lubricant 2-14 (Same as: l 22:57: Lacri-Lube Belk 00 , Puralube, Duratears Naturale, Artificial Tears, and Tears Again ) Dexamethaso 2019-05 No Notes: [facility] rae[facility] ne 2-14 Give with l 19:00: food. Belk (Same As: Decadron) chlorhexidi 2019-05 No Notes: [facility] rae[facility] ne 2-13 (Same As: l gluconate 15:00: Peridex) Herm naye 1.2 MG/ML 00 Mouthwash Calcium 2019-05 No 1,000 mL, Memor ia Chloride 2-13 1,000 l 0.0014 13:50: ml/hr, Matty MEQ/ML / 00 Infuse Potassium Over: 1 Chloride hr, Route: 0.004 IV, 1,000, MEQ/ML / Drug form: Sodium INJ, ONCE, Chloride Priority: 0.103 STAT, MEQ/ML / Dosing Sodium Weight 70 Lactate kg, Start 0.028 date: MEQ/ML 04/15/20 Injectable 7:50:00 Solution POST ADOPTION COORDINATOR, Stop date: 04/15/20 7:50:00 POST ADOPTION COORDINATOR, 0 Vancomycin 2019-05 mg: Me moria 2-13 infuse l 11:00: over 2.5 Matty 00 hours For adult patients only: Round to nearest 250 mg per Medical Staff approval MEDICATION WASTE Product Size: 1000 mg Product Wasted: ___ mg Versed 2019-05 No Notes: Memoria 2-13 (Same as: l 09:40: Versed) MEDICATION WASTE Product Size: 2 mg Product Wasted: ___ mg Calcium 2019-05 No 500 mL, Memoria Chloride 2-13 500 ml/hr, l 0.0014 06:38: Infuse Matty MEQ/ML / 00 Over: 1 Potassium hr, Route: Chloride IV, 500, 0.004 Drug form: MEQ/ML / INJ, ONCE, Sodium Priority: Chloride STAT, 0.103 Dosing MEQ/ML / Weight 70 Sodium kg, Start Lactate date: 004/15/20 MEQ/ML 0:38:00 Injectable POST ADOPTION COORDINATOR, Stop Solution date: 04/15/20 0:38:00 POST ADOPTION COORDINATOR, 0 ocular 2019-05 No Notes: Memoria lubricant 2-13 (Same as: l 06:00: Lacri-Lube Belk 00 , Puralube, Duratears Naturale, Artificial Tears, and Tears Again ) ed 2019-05 No Notes: Memoria 2-13 (Same as: l 03:51: Versed) MEDICATION WASTE Product Size: 2 mg Product Wasted: ___ mg chlorhexidi 2019-05 No Notes: [facility] raeann ne 2-13 (Same As: l gluconate 03:39: Peridex) Herm naye 1.2 MG/ML Mouthwash Midazolam 2019-05 No Notes: Memori a 2-13 (Same as: l 03:37: Versed) Fentanyl 2019-05 No 1,000 Memoria 2-13 microgram, l 03:29: 20 mL, Belk 00 Rate: Titrate, Start Dose: 50 microgram/ hr, Titration: 25 microgram/ hour every 15 minutes, Goal(s): RASS -1, Max Dose: 300 microgram/ hr, Route: IV, Dosing Weight 70 kg, Total Volume: 20, Start date: 04/14/20 21:29:00 POST ADOPTION COORDINATOR, Durat... meropenem 2019-05 No Notes: Memori a 2-13 Same as l 03:00: Merrem Rocuronium 2019-05 No 50 mg, Memor ia 2-13 Route: IV, l 02:44: ONCE, Dosing Weight 70, kg, Start date: 04/14/20 20:44:00 POST ADOPTION COORDINATOR, Stop date: 04/14/20 20:44:00 POST ADOPTION COORDINATOR Fentanyl 2019-05 No 50 Memoria 2-13 microgram, l 02:44: Route: IV, ONCE, Dosing Weight 70, kg, Start date: 04/14/20 20:44:00 POST ADOPTION COORDINATOR, Stop date: 04/14/20 20:44:00 POST ADOPTION COORDINATOR Etomidate 2019-05 No 10 mg, Memori a 2-13 Route: IV, l 02:22: ONCE, Dosing Weight 70, kg, Start date: 04/14/20 20:22:00 POST ADOPTION COORDINATOR, Stop date: 04/14/20 20:22:00 POST ADOPTION COORDINATOR Fentanyl 2019-05 No 100 Memoria 2-13 microgram, l 02:22: Route: IV, ONCE, Dosing Weight 70, kg, Start date: 04/14/20 20:22:00 POST ADOPTION COORDINATOR, Stop date: 04/14/20 20:22:00 POST ADOPTION COORDINATOR Midazolam 2019-05 No 2 mg, Memoria 2-13 Route: l 02:22: IVP, ONCE, Dosing Weight 70, kg, Start date: 04/14/20 20:22:00 POST ADOPTION COORDINATOR, Stop date: 04/14/20 20:22:00 POST ADOPTION COORDINATOR Dopamine 2019-05 No Notes: Memoria 2-13 (Same as: l 02:17: Intropin) Administer by either central venous catheter or peripheral ly-inserte d central catheter (PICC) line. Final conc = 3.2 mg/ml. Premix solution. Vancomycin 2019-05 No 2000 mg: Me moria 2-13 infuse l 02:02: over 2.5 hours Norepinephr 2019-05 No Notes: [facility] raeann ine 2-13 Same as: l 01:55: Levophed. Administer by either central venous catheter or peripheral ly-inserte d central catheter (PICC) line. Racepinephr 2019-05 No Notes: [facility] raeann ine 22.5 2-13 (racepinep l MG/ML 01:00: hrine Belk Inhalant 00 *2.25% inh Solution 0.5ml SOLN) (Same as:S2) Dexamethaso 2019-05 No Notes: [facility] rae[facility] ne 2-12 Give with l 22:00: food. Dexamethaso 2019-05 No Notes: [facility] rae[facility] ne 2-12 Concentrat l 19:00: ion: Belk 4mg/ml lamotrigine 2019-05 No Notes: [facility] raeann 200 MG Oral 2-12 (Same l Tablet 15:00: as:LaMICta Lanny nn 00 l) Potassium 2019-05 No Notes: Memori a Chloride 2-12 (Same as: l 1.33 MEQ/ML 13:35: Potassium H ermann Oral 00 Chloride) Solution Potassium 2019-05 No Notes: Memori a Chloride 2-12 (Same as: l 13:22: K-Dur 20) "Do Not Crush" Give with food and full glass of water For patients unable to swallow tablet, dissolve in one half glass of water. Allow about 2 minutes for the tablets to disintegra te. Stir before giving to prepare slurry and administer . Please exclude Patient s with feeding tube less than 14 Italian (Dobhoff, J-tube etc) and pediatric and patients. Cleocin HCl 2019-05 No Notes: [facility] raeann 2-12 (clindamyc l 12:00: in 150 Matty 00 mg/1 ml (600 mg/4 ml VL) INJ) (Same As: Cleocin) Clindamycin 2019-05 No 300 mg, Mem oria 2-12 Route: l 11:00: IVPB, ABXQ8H, Dosing Weight 70, kg, Start date: 04/14/20 5:00:00 POST ADOPTION COORDINATOR, Duration: 7 day, Stop date: 04/20/20 21:00:00 POST ADOPTION COORDINATOR, ABX Indication : Bacteremia Potassium 2019-05 No Notes: Memori a Chloride 2-12 (Same as: l 1.33 MEQ/ML 10:00: Potassium H ermann Oral 00 Chloride) Solution Keppra 2019-05 No 500 mg, Memoria 2-12 Route: PO, l 08:32: ONCE, Dosing Weight 70, kg, Start date: 04/14/20 2:32:00 POST ADOPTION COORDINATOR, Stop date: 04/14/20 2:32:00 POST ADOPTION COORDINATOR Ativan 2019-05 No Notes: Memoria 2-12 (Same as: l 07:50: Ativan) Levetiracet 2019-05 No Notes: [facility] raeann am 1000 MG 2-12 (Same l Oral Tablet 03:00: as:Keppra) Albuterol 2019-05 No Notes: Memori a 0.833 MG/ML -12 (Same as: l / 02:55: Duoneb) Ipratropium 00 [place] 0.167 MG/ML Inhalant Solution [DuoNeb] Sodium 2019-05 No Notes: SEE Memor ia Chloride 3% -12 RT l inhalation 02:55: DOCUMENTAT H ermann solution 00 ION (Same as: Hypertonic Saline 3%, Inhalation ) Ativan 2019-05 No Notes: Memoria 2-12 (Same as: l 02:48: Ativan) heparin 2019-05 No Notes: Memoria sodium, 2-11 porcine l porcine 22:00: heparin Matty 2500 UNT/ML 00 Injectable Solution ondansetron 2019-05 No Route: IV, Memoria (ANES) 2- Drug form: l 17:04: INJ, ONCE, Stop date: 04/13/20 11:04:00 POST ADOPTION COORDINATOR sugammadex 2019-05 No Route: IV, M emoria (ANES) 2- Drug form: l 17:04: SOLN, 00 ONCE, Stop date: 04/13/20 11:04:00 POST ADOPTION COORDINATOR Hydromorpho 2019-05 No Notes: [facility] raeann ne 2-11 Same as l 17:03: Dilaudid Flumazenil 2019-05 No Notes: Memor ia 2-11 (Same as: l 17:03: Romazicon) Naloxone 2019-05 No Notes: Memoria 2-11 Same as l 17:03: Narcan Ondansetron 2019-05 No Notes: [facility] raeann 2-11 (Same as: l 17:03: Zofran) MEDICATION WASTE Product Size: 4 mg Product Wasted: ___ mg phenylephri 2019-05 No Route: IV, Memoria ne (ANES) 2-11 Drug form: l 16:58: INJ, ONCE, Matty 00 Stop date: 04/13/20 10:58:00 POST ADOPTION COORDINATOR midazolam 2019-05 No Route: IV, Me moria (ANES) 2-11 Drug form: l 16:53: SOLN, Matty 00 ONCE, Stop date: 04/13/20 10:53:00 POST ADOPTION COORDINATOR propofol 2019-05 No Route: IV, Mem oria (ANES) 2-11 Drug form: l 16:53: INJ, ONCE, Belk 00 Stop date: 04/13/20 10:53:00 POST ADOPTION COORDINATOR rocuronium 2019-05 No Route: IV, M emoria (ANES) 2-11 Drug form: l 16:53: INJ, ONCE, Stop date: 04/13/20 10:53:00 POST ADOPTION COORDINATOR fentaNYL 2019-05 No Route: IV, Mem oria (ANES) 2-11 Drug form: l 16:53: INJ, ONCE, Stop date: 04/13/20 10:53:00 POST ADOPTION COORDINATOR Lactated 2019-05 No Route: IV, Mem oria Ringers 2-11 Total l Injection 16:04: Volume: Lanny nn IV (ANES) 00 1,000, 1000 mL Start date: 04/13/20 10:04:00 POST ADOPTION COORDINATOR, Stop date: 04/13/20 11:04:00 POST ADOPTION COORDINATOR Cefazolin 2019-05 No Notes: Memori a 2-11 (Same as l 16:00: Ancef) Belk 00 PHOS-NaK 2019-05 No Notes: Memoria 2-11 (Same as: l 16:00: Phos-NaK) Each 1.5 gm pkt has 250mg phosphorou s. Mix w/2.5oz water and stir. Aspirin 81 2019-05 No Notes: Memor ia MG Enteric 2-11 Take with l Coated 15:00: food. Belk Tablet 00 Dexamethaso 2019-05 No Notes: [facility] raeann ne 2-10 Concentrat l 18:00: ion: Belk 00 4mg/ml Ceftriaxone 2019-05 No Notes: [facility] raeann 2-10 (Same As: l 16:00: Rocephin). Matty 00 Use with 100 mL NS and infuse over 30 min MEDICATION WASTE Product Size: 1000 mg Product Wasted: ___ mg Aspirin 81 2019-05 No Notes: Do Me moria MG Enteric 2-10 not crush l Coated 15:00: or chew. Belk Tablet 00 (Same As: Ecotrin) Plavix 2019-05 No 75 mg, Memoria 2-10 Route: PO, l 15:00: Drug form: Belk 00 TAB, Daily, Dosing Weight 70, kg, Start date: 04/12/20 9:00:00 POST ADOPTION COORDINATOR, Duration: 30 day, Stop date: 05/11/20 9:00:00 POST ADOPTION COORDINATOR sodium 2019-05 No Notes: Memoria phosphate 2-10 Infuse l 11:31: over 4 Matty 00 hour. Do not infuse phosphorou s concurrent ly in the same line as TPN or IVF that contains calcium. For double lumen central lines, phosphorou s may be infused in a separate lumen from TPN. atorvastati 2019-05 No Notes: [facility] raeann n 2-10 (Same as: l 03:00: Lipitor) Belk Famotidine 2019-05 No Notes: Memor ia 2-10 (Same as: l 03:00: Pepcid) Matty Calcium 2019-05 No 500 mL, Memoria Chloride 2-09 500 ml/hr, l 0.0014 19:47: Infuse Matty MEQ/ML / 00 Over: 1 Potassium hr, Route: Chloride IV, 500, 0.004 Drug form: MEQ/ML / INJ, ONCE, Sodium Dosing Chloride Weight 70 0.103 kg, Start MEQ/ML / date: Sodium 04/11/20 Lactate 13:47:00 0.028 POST ADOPTION COORDINATOR, Stop MEQ/ML date: Injectable 04/11/20 Solution 13:47:00 POST ADOPTION COORDINATOR, 0 Calcium 2019-05 No 250 mL, Memoria Chloride 2-09 250 ml/hr, l 0.0014 19:11: Infuse Matty MEQ/ML / 00 Over: 1 Potassium hr, Route: Chloride IV, 250, 0.004 Drug form: MEQ/ML / INJ, ONCE, Sodium Priority: Chloride STAT, 0.103 Dosing MEQ/ML / Weight 70 Sodium kg, Start Lactate date: 0.028 04/11/20 MEQ/ML 13:11:00 Injectable POST ADOPTION COORDINATOR, Stop Solution date: 04/11/20 13:11:00 POST ADOPTION COORDINATOR, 0 Heparin 60 2020-1 No Route: Memor ia unit/kg 2-09 IVP, PRN, l Bolus 17:02: 3,500 Matty (Heparin 00 unit, 3.5 Dosing mL, Drug Weight) form: INJ, PRN, Heparin Protocol, Start date: 04/11/20 11:02:00 POST ADOPTION COORDINATOR Stop date: 05/11/20 11:01:00 POST ADOPTION COORDINATOR, 30 day, 0 Heparin 30 2019-05 No Route: Memor ia unit/kg 2-09 IVP, PRN, l Bolus 17:02: 1,700 Belk (Heparin 00 unit, 1.7 Dosing mL, Drug Weight) form: INJ, PRN, Heparin Protocol, Start date: 04/11/20 11:02:00 POST ADOPTION COORDINATOR Stop date: 05/11/20 11:01:00 POST ADOPTION COORDINATOR, 30 day, 0 heparin 2019-05 No Notes: Memoria additive 2-09 Total l 25,000 unit 17:02: Concentrat Matty [12 00 ion = 50 unit/kg/hr] unit/ ml + Premix Total Diluent volume = Sodium 500 ml Chloride Send Med 0.45% 500 Request 2 mL hours prior to next bag Aspirin 2019-05 No Notes: Memoria 2-09 Take with l 16:34: food. Belk PHOS-NaK 2019-05 No 1 packet, [facility] raeann 2 Route: PO, l 14:00: Dosing Belk 00 Weight 70, kg, Q8H, Start date: 04/11/20 8:00:00 POST ADOPTION COORDINATOR, Duration: 2 day, Stop date: 04/13/20 0:00:00 POST ADOPTION COORDINATOR Fentanyl 2019-05 No Notes: Memoria 2-09 (Same as: l 13:55: Sublimaze) Matty 00 Preservat anshu free. Calcium 2019-05 No 250 mL, Memoria Chloride 2-09 250 ml/hr, l 0.0014 13:52: Infuse Belk MEQ/ML / 00 Over: 1 Potassium hr, Route: Chloride IV, 250, 0.004 Drug form: MEQ/ML / INJ, ONCE, Sodium Priority: Chloride STAT, 0.103 Dosing MEQ/ML / Weight 70 Sodium kg, Start Lactate date: 0.028 04/11/20 MEQ/ML 7:52:00 Injectable POST ADOPTION COORDINATOR, Stop Solution date: 04/11/20 7:52:00 POST ADOPTION COORDINATOR, 0 Calcium 2019-05 No 250 mL, Memoria Chloride 2-09 250 ml/hr, l 0.0014 13:51: Infuse Matty MEQ/ML / 00 Over: 1 Potassium hr, Route: Chloride IV, ONCE, 0.004 Priority: MEQ/ML / STAT, Sodium Dosing Chloride Weight 70 0.103 kg, Start MEQ/ML / date: Sodium 04/11/20 Lactate 7:51:00 0.028 POST ADOPTION COORDINATOR, Stop MEQ/ML date: Injectable 04/11/20 Solution 7:51:00 POST ADOPTION COORDINATOR Fentanyl 2019-05 No 25 Memoria 2-09 microgram, l 13:43: Route: IV, Matty 00 Q6H, Dosing Weight 70, kg, PRN Agitation, Start date: 04/11/20 7:43:00 POST ADOPTION COORDINATOR, Duration: 30 day, Stop date: 05/11/20 7:42:00 POST ADOPTION COORDINATOR sodium 2019-05 No Notes: Memoria phosphate 2-09 Infuse l 13:11: over 4 Belk 00 hour. Do not infuse phosphorou s concurrent ly in the same line as TPN or IVF that contains calcium. For double lumen central lines, phosphorou s may be infused in a separate lumen from TPN. Seroquel 2019-05 No Notes: Memoria 2-09 (Same as: l 08:45: SEROquel) Matty 00 Vancomycin 2019-05 No 1.2 gm, [facility] raeann 06-12 Route: IV, l 03:00: Q12H, Belk 00 Dosing Weight 79.545, kg, Start date: 04/10/20 21:00:00 POST ADOPTION COORDINATOR, Duration: 7 day, Stop date: 04/17/20 9:00:00 POST ADOPTION COORDINATOR, ABX Indication : Pneumonia Vancomycin 2019-05 No 2000 mg: Me moria 2-09 infuse l 02:00: over 2.5 Belk 00 hours Famotidine 2019-05 No Notes: Memor ia 2-08 (Same as: l 23:00: Pepcid) Matty 00 Can be dilute in 5-10cc NS IVP: Slow IV push over at least 2 minutes. Calcium 2019-05 No 1,000 mL, Memor ia Chloride 2-08 1000 l 0.0014 22:55: ml/hr, Belk MEQ/ML / 00 Infuse Potassium Over: 1 Chloride hr, Route: 0.004 IV, 1,000, MEQ/ML / Drug form: Sodium INJ, ONCE, Chloride Priority: 0.103 STAT, MEQ/ML / Dosing Sodium Weight 70 Lactate kg, Start 0.028 date: MEQ/ML 04/10/20 Injectable 16:55:00 Solution POST ADOPTION COORDINATOR, Stop date: 04/10/20 16:55:00 POST ADOPTION COORDINATOR, 0 Calcium 2019-05 No 500 mL, Memoria Chloride 2-08 500 ml/hr, l 0.0014 22:28: Infuse Belk MEQ/ML / 00 Over: 1 Potassium hr, Route: Chloride IV, 500, 0.004 Drug form: MEQ/ML / INJ, ONCE, Sodium Priority: Chloride STAT, 0.103 Dosing MEQ/ML / Weight 70 Sodium kg, Start Lactate date: 0.028 04/10/20 MEQ/ML 16:28:00 Injectable POST ADOPTION COORDINATOR, Stop Solution date: 04/10/20 16:28:00 POST ADOPTION COORDINATOR, 0 Insulin 2019-05 No Notes: Memoria regular 2-08 (Same as: l 21:10: Humulin R) Roll in palms of hands gently; Do not shake vigorously . WASTE: F/P - Black; E - Municipal Trash Bin Stable for 31 days at room temperatur e Expires in days from ____Date Flagyl 2019-05 No Notes: Memoria 2-08 (Same as: l 20:00: Flagyl) Avoid alcohol. Potassium 2019-05 No Notes: Memori a Chloride 2-08 (Same as: l 18:25: KCL) 10 Matty 00 mEq/100ml product recommende d for peripheral line administra tion. Infuse no faster than 10 mEq/hr if given peripheral ly. cefepime 2019-05 No Notes: Memoria 2-08 (Same As: l 18:00: Maxipime) Belk 00 MEDICATION WASTE Product Size: 1000 mg Product Wasted: ___ mg ocular 2019-05 No Notes: Memoria lubricant 2-08 (Same as: l 18:00: Lacri-Lube Matty 00 , Puralube, Duratears Naturale, Artificial Tears, and Tears Again ) Lovenox 2019-05 No Notes: Memoria 2-08 (Same as: l 17:00: Lovenox) Matty 00 Dextrose 2019-05 No 12.5 gm, Memor ia 50% in 2-08 25 mL, l Water IV 16:45: Route: Matty 00 IVP, Drug Form: INJ, Dosing Weight 70, kg, PRN, PRN Blood Glucose Results, Start date: 04/10/20 10:45:00 POST ADOPTION COORDINATOR, Duration: 30 day, Stop date: 05/10/20 10:44:00 POST ADOPTION COORDINATOR, 0 Glucagon 2019-05 No 1 mg, Memoria 2-08 Route: IM, l 16:45: Drug form: Amtty 00 PDR/INJ, PRN, Dosing Weight 70, kg, PRN Blood Glucose Results, Start date: 04/10/20 10:45:00 POST ADOPTION COORDINATOR, Duration: 30 day, Stop date: 05/10/20 10:44:00 POST ADOPTION COORDINATOR, 0 Insulin 2019-05 No Notes: Memoria Lispro 2-08 (Same as: l 16:45: Humalog) Belk 00 Roll in palms of hands gently; Do not shake vigorously . WASTE: F/P - Black; E - [employer] Trash Bin Stable for 28 days at room temperatur e. Expires in days from ____Date Calcium 2019-05 No 250 mL, Memoria Chloride 2-08 250 ml/hr, l 0.0014 16:41: Infuse Belk MEQ/ML / 00 Over: 1 Potassium hr, Route: Chloride IV, 250, 0.004 Drug form: MEQ/ML / INJ, ONCE, Sodium Priority: Chloride STAT, 0.103 Dosing MEQ/ML / Weight 70 Sodium kg, Start Lactate date: 0.028 04/10/20 MEQ/ML 10:41:00 Injectable POST ADOPTION COORDINATOR, Stop Solution date: 04/10/20 10:41:00 POST ADOPTION COORDINATOR, 0 Potassium 2019-05 No Notes: Memori a Chloride 2-08 (Same as: l 1.33 MEQ/ML 16:39: Potassium H ermann Oral 00 Chloride) Solution Docusate 2019-05 No Notes: Memoria 2-08 (Same as: l 15:00: Colace) Belk 00 POLYETHYLEN 2019-05 No Notes: [facility] raeann E GLYCOL 2-08 Dissolve l 3350 15:00: in 8 oz of Matty 00 water or juice. (Same as: Miralax) sennosides, 2019-05 No Notes: [facility] raeann DETENTION 2-08 (Same as: l 15:00: Senokot) Matty Saline 2019-05 No Notes: Memoria Flush 0.9% 2-08 (Same as: l 15:00: BD Matty 00 Posiflush) chlorhexidi 2019-05 No Notes: [facility] rae[facility] ne 2-08 (Same As: l gluconate 15:00: Peridex) Herm naye 1.2 MG/ML 00 Mouthwash Vancomycin 2019-05 No 2000 mg: Me moria 2-08 infuse l 13:53: over 2.5 Belk 00 hours chlorhexidi 2019-05 No Notes: [facility] rae[facility] ne 2-08 (Same As: l gluconate 13:51: Peridex) Herm naye 1.2 MG/ML Mouthwash Nystatin 2019-05 No Notes: Memoria 100 UNT/MG 208 (Same l Topical 13:46: as:Mycosta Herm naye Powder 00 tin, Nilstat) For external use only. Acetaminoph 2019-05 No Notes: Do M emoria en 2 not exceed l 13:46: 4 gm/day. Belk (Same as: Tylenol) Saline 2019-05 No Notes: Memoria Flush 0.9% 2-08 (Same as: l 13:46: BD Posiflush) Dexamethaso 2019-05 No Notes: [facility] rae[facility] ne 2-08 Concentrat l 12:00: ion: Matty 00 4mg/ml Metronidazo 2019-05 No 500 mg, Mem oria le 06-11 Route: l 10:00: IVPB, ONCE, Dosing Weight 79.545, kg, Priority: STAT, Start date: 04/10/20 4:00:00 POST ADOPTION COORDINATOR, Stop date: 04/10/20 4:00:00 POST ADOPTION COORDINATOR, ABX Indication : Pneumonia cefepime 2019-05 No 2 gm, Memoria 208 Route: l 09:59: IVP, ONCE, Dosing Weight 79.545, kg, Priority: STAT, Start date: 04/10/20 3:59:00 POST ADOPTION COORDINATOR, Stop date: 04/10/20 3:59:00 POST ADOPTION COORDINATOR, ABX Indication : Pneumonia Vancomycin 2019-05 No 2000 mg: Me moria 2-08 infuse l 09:59: over 2.5 Belk 00 hours Famotidine 2019-05 No Notes: Memor ia 06-11 (Same as: l 08:52: Pepcid) Can be dilute in 5-10cc NS IVP: Slow IV push over at least 2 minutes. Dexamethaso 2019-05 No 10 mg, [facility] rae[facility] ne 2-08 Route: l 08:51: IVP, ONCE, Dosing Weight 79.545, kg, Priority: STAT, Start date: 04/10/20 2:51:00 POST ADOPTION COORDINATOR, Stop date: 04/10/20 2:51:00 POST ADOPTION COORDINATOR Midazolam 2019-05 No Notes: Memori a 06-11 (Same as: l 07:26: Versed) Isolyte S 2019-05 No 1,000 mL, Mem oria PH-7.4 2-08 Infuse l (Bolus) IV 07:22: Over: 1 Herm naye 00 hr, Route: IV, Drug form: INJ, ONCE, Priority: STAT, Dosing Weight 79.545 kg, Start date: 04/10/20 1:22:00 POST ADOPTION COORDINATOR, Stop date: 04/10/20 1:22:00 POST ADOPTION COORDINATOR, Bolus Dose Fentanyl 2019-05 No 1,000 Memoria -08 microgram, l 06:49: 20 mL, Rate: Titrate, Start Dose: 50 microgram/ hr, Titration: 25 microgram/ hour every 15 minutes, Goal(s): hr, Max Dose: 300 microgram/ hr, Route: IV, Dosing Weight 79.545 kg, Total Volume: 20, Start date: 04/10/20 0:49:00 POST ADOPTION COORDINATOR, Duratio... Isolyte S 2019-05 No 1,000 mL, Mem oria PH-7.4 2-08 Infuse l (Bolus) IV 06:49: Over: 1 Herm naye 00 hr, Route: IV, Drug form: INJ, ONCE, Priority: STAT, Dosing Weight 79.545 kg, Start date: 04/10/20 0:49:00 POST ADOPTION COORDINATOR, Stop date: 04/10/20 0:49:00 POST ADOPTION COORDINATOR, Bolus Dose Norepinephr 2019-05 No Notes: [facility] rae[facility] ine 2-08 Same as: l 06:49: Levophed. Matty 00 Administer by either central venous catheter or peripheral ly-inserte d central catheter (PICC) line. Saline 2019- No Notes: Memoria Flush 0.9% 2-08 (Same as: l 06:38: BD Matty Posiflush) Flumazenil 2019-05 No 0.2 mg, [facility] raeann 2-05 Route: l 00:38: IVP, PRN, Matty Dosing Weight 79.545, kg, PRN Benzodiaze pine Reversal, Initial dose, Start date: 04/06/20 18:38:00 POST ADOPTION COORDINATOR, Duration: 30 day, Stop date: 05/06/20 18:37:00 POST ADOPTION COORDINATOR Naloxone 2019-05 No 0.4 mg, Memori a 06-08 Route: l 00:38: IVP, Belk Q2MIN, Dosing Weight 79.545, kg, PRN Narcotic Reversal, Start date: 04/06/20 18:38:00 POST ADOPTION COORDINATOR, Duration: 8 doses or times, Stop date: Limited # of times Ondansetron 2019-05 No 4 mg, Memor ia 2-05 Route: l 00:38: IVP, ONCE, Dosing Weight 79.545, kg, PRN Nausea & Vomiting, Start date: 04/06/20 18:38:00 POST ADOPTION COORDINATOR Sodium 2019- No 1,000 mL, Memori a Chloride - Rate: 50 l 0.9% IV 21:43: ml/hr, Belk 1,000 mL 00 Infuse over: 20 hr, Route: IV, Dosing Weight 79.545 kg, Total Volume: 1,000, Priority: Routine, Start date: 04/06/20 15:43:00 POST ADOPTION COORDINATOR, Duration: 30 day, Stop date: 05/06/20 15:42:00 POST ADOPTION COORDINATOR, 1.96, m2 Acetaminoph 2019-05 No 325 mg, Mem oria en 2-04 Route: PO, l 21:43: Drug form: Belk 00 TAB, Q4H, Dosing Weight 79.545, kg, PRN Pain Score 1-3, Start date: 04/06/20 15:43:00 POST ADOPTION COORDINATOR, Duration: 30 day, Stop date: 05/06/20 15:42:00 POST ADOPTION COORDINATOR Acetaminoph 2019-05 No 1 tab, [facility] raeann en 325 MG / 2-04 Route: PO, l Hydrocodone 21:43: Drug Form: Belk Bitartrate 00 TAB, 5 MG Oral Dosing Tablet Weight 79.545, kg, Q4H, PRN Pain Score 4-6, Start date: 04/06/20 15:43:00 POST ADOPTION COORDINATOR, Duration: 30 day, Stop date: 05/06/20 15:42:00 POST ADOPTION COORDINATOR Bupivacaine 2019-05 No 30 mL, [facility] raeann Hydrochlori 2-04 Route: l de 2.5 12:00: MISC, Matty MG/ML / 00 Dosing Epinephrine Weight 0.005 MG/ML 79.545, Injectable kg, Solution ONCALL, Start date: 04/06/20 6:00:00 POST ADOPTION COORDINATOR, Duration: 30 day, Stop date: 05/06/20 5:59:00 POST ADOPTION COORDINATOR Bacitracin 2019-05 No 1 appl, [facility] raeann 0.5 UNT/MG 2-04 Route: l / Polymyxin 12:00: LORA, Parveen n B 10 UNT/MG 00 ONCALL, Topical Drug form: Ointment OINT, [Polysporin Priority: ] Routine, Start date: 04/06/20 6:00:00 POST ADOPTION COORDINATOR, Duration: 1 doses or times Fentanyl 2019-05 No 50 Memoria 2-04 microgram, l 12:00: Route: Belk 00 IVP, ONCALL, Dosing Weight 79.545, kg, Priority: Routine, Start date: 04/06/20 6:00:00 POST ADOPTION COORDINATOR, Duration: 1 doses or times Sodium 2019-05 No 1,000 mL, Memori a Chloride 2-04 Rate: 50 l 0.9% IV 11:49: ml/hr, Matty 1,000 mL 00 Infuse over: 20 hr, Route: IV, Dosing Weight 79.545 kg, Total Volume: 1,000, Priority: Routine, Start date: 04/06/20 5:49:00 POST ADOPTION COORDINATOR, Duration: 30 day, Stop date: 05/06/20 5:48:00 POST ADOPTION COORDINATOR, 1.96, m2, 0 Dexamethaso 2019-05 Yes 6 mg, Memor ia ne 2-04 Route: l 11:49: IVP, Drug Belk 00 form: INJ, ONCE, Dosing Weight 79.545, kg, Start date: 04/06/20 5:49:00 POST ADOPTION COORDINATOR, Stop date: 04/06/20 5:49:00 POST ADOPTION COORDINATOR Famotidine 2019-05 Yes Notes: Memor ia 2-04 [...] Nausea & Vomiting, Start date: 04/06/20 5:49:00 POST ADOPTION COORDINATOR, Duration: 30 day, Stop date: 05/06/20 5:48:00 POST ADOPTION COORDINATOR Fentanyl 2019-05 No 25 Memoria 2-04 microgram, l 11:49: Route: IVP, Q1H, Dosing Weight 79.545, kg, PRN Pain Score 7-10, Priority: Routine, Start date: 04/06/20 5:49:00 POST ADOPTION COORDINATOR, Duration: 1 doses or times, Stop date: Limited # of times Hydralazine 2019-05 No 20 mg, [facility] raeann 2-04 Route: IV, l 11:49: Q4H, Dosing Weight 79.545, kg, PRN Hypertensi on, Start date: 04/06/20 5:49:00 POST ADOPTION COORDINATOR, Duration: 30 day, Stop date: 05/06/20 5:48:00 POST ADOPTION COORDINATOR Labetalol 2019-05 No 10 mg, Memori a 2-04 Route: l 11:49: IVP, Drug form: INJ, [id number] , Dosing Weight 79.545, kg, PRN Hypertensi on, Start date: 04/06/20 5:49:00 POST ADOPTION COORDINATOR, Duration: 3 doses or times, Stop date: Limited # of times Dexamethaso No 4 mg, Memor ia ne 8 Route: PO, l 23:00: Q6H, Dosing Weight 63.636, kg, Start date: 12/09/19 18:00:00 CDT, Duration: 30 day, Stop date: 01/08/20 12:00:00 CDT OLANZapine 2020-0 Yes 5 mg = 1 Mem oria 5 mg oral 8-07 tab, PO, l tablet, 21:51: BID, PRN Parveen n disintegrat 00 Agitation, ing # 60 tab, 0 Refill(s), Pharmacy: [facility] #[id number], 167.64, cm, 12/05/19 22:02:00 CDT, Height, 63.636, kg, 12/05/19 22:02:00 CDT, Weight Dexamethaso 2020-0 Yes 4 mg = 1 Me moria ne 4 MG 8-07 tab, PO, l Oral Tablet 21:51: BID, X 30 H erm day, # 60 tab, 0 Refill(s), Pharmacy: [facility] #[id number], 167.64, cm, 12/05/19 22:02:00 CDT, Height, 63.636, kg, 12/05/19 22:02:00 CDT, Weight Dexamethaso 2020-0 No Notes: [facility] raeann ne 8-07 Concentrat l 21:00: ion: 4mg/ml Dexamethaso 2019-0 No Notes: [facility] raeann ne 8-07 Give with l 19:22: food. (Same As: Decadron) famotidine No Notes: Memor ia 8-06 (Same as: l 14:00: Pepcid) olanzapine 2019-0 No Notes: Memor ia 8-06 (Same as: l 01:07: ZyPREXA Zydis ODT-Oral Disintegra ting Tablet) Clonazepam 0 No Notes: Memor ia 8-05 (Same As: l 14:00: KlonoPIN) Hazardous Drug Group 3:Reproduc tive risk Hazardous Drug -- Refer to safe handling procedure PPE Matrix Ativan No Notes: Memoria 8-05 (Same as: l 05:11: Ativan) Ativan No Notes: Memoria 8-05 (Same as: l 02:12: Ativan) Cortef No Notes: Memoria 8-04 (Same as: l 22:00: Cortef) levothyroxi Yes 125 Memori a ne 125 mcg 8-04 microgram l (0.125 mg) 17:59: = 1 tab, Her bonilla oral tablet 00 PO, Daily Hydrocortis No Notes: [facility] raeann one 12-05 (Same as: l 15:31: Cortef) Keppra No 500 mg, Memoria 12-05 Route: l 14:00: IVPB, Belk 00 Q12H, Dosing Weight 63.636, kg, Priority: Routine, Start date: 12/06/19 9:00:00 CDT, Duration: 30 day, Stop date: 01/04/20 21:00:00 CDT Clonazepam No Notes: Memor ia -04 (Same As: l 14:00: KlonoPIN) Hazardous Drug Group 3:Reproduc tive risk Hazardous Drug -- Refer to safe handling procedure PPE Matrix lamotrigine No Notes: [facility] raeann 200 MG Oral 12-05 (Same l Tablet 14:00: as:LaMICta Lanny nn 00 l) Levetiracet No Notes: [facility] raeann am 1000 MG 12-05 (Same l Oral Tablet 14:00: as:Keppra) Thyroxine [...] push over at least 2 minutes. Dexamethaso No Notes: [facility] raeann ne 8-04 Concentrat l 13:00: ion: 4mg/ml levothyroxi 2020-0 No 0 Memori a ne 125 mcg 12-05 Refill(s) l (0.125 mg) 11:51: Matty oral tablet 00 hydrocortis 2020-0 No TK 3 TS PO Memoria one 5 mg 12-05 QAM AND 1 l oral tablet 11:51: T IN THE AFTERNOON PLUS EXTRA IN TIMES OF STRESS Ergocalcife 2019-0 Yes 50,000 [facility] raeann rol [id number] 12-05 IntlUnit = l UNT Oral 11:51: 1 cap, PO, Her bonilla Capsule 00 qWeek sertraline 2019-0 Yes 100 mg = 1 M emoria 100 mg oral 12-05 tab, PO, l tablet 11:51: Daily Levetiracet 2019-0 Yes 1,000 mg = Memoria am 1000 MG 12-05 1 tab, PO, l Oral Tablet 11:51: BID lamotrigine 0 Yes 400 mg = 2 Memoria 200 MG Oral 12-05 tab, PO, l Tablet 11:51: BID clonazePAM 2019-0 No 0.5 mg = 1 M emoria 0.5 mg oral 12-05 tab, PO, l tablet 11:51: BID pregabalin 2019-0 Yes 75 mg = 1 Me moria 75 mg oral 12-05 cap, PO, l capsule 11:51: BID, TK 1 Lanny nn 00 C PO BID Dextrose 2019-0 No 12.5 gm, Memor ia 50% Syringe 12-05 25 mL, l (D50W) 11:49: Route: IVP, Drug Form: INJ, Dosing Weight 63.636, kg, PRN, PRN Blood Glucose Results, Start date: 12/06/19 6:49:00 CDT, Duration: 30 day, Stop date: 01/05/20 6:48:00 CDT, 0 Dextrose 2020-0 No 25 gm, 50 [facility] raeann 50% in 12-05 mL, Route: l Water IV 11:49: IVP, [...] Stop date: 01/05/20 6:48:00 CDT, 0 Dexamethaso 2020-0 No 8 mg, Memor ia ne 12-05 [...] stephenie) 1.25 00:00: M.D. MOUTH [place] MG (18641 MG (93331 00 WEEKLY Phy sici [place]) Oral [place]) [...] tab, PEG, l tablet 20:34: Daily, 0 Mtaty 00 Refill(s) levothyroxi Yes 125 Memori a [...] Tablet 20:34: BID, 0 Matty 00 Refill(s) pantoprazol Yes 40 mg = 1 M emoria e 40 mg 1-25 pkt, PEG, l oral 20:34: Daily, 0 Matty granule 00 Refill(s) gabapentin Yes 300 mg = 6 M emoria 50 MG/ML 1-25 mL, PEG, l Oral 20:34: Q8H, 0 Belk Solution 00 Refill(s) Imodium A-D No Notes: [facility] raeann 05-28 (Same as: l 19:17: Imodium) Belk 00 Menthol No Notes: Memoria 0.0044 25 (Same as: l MG/MG / 16:29: Calmosepti Herm naye Zinc Oxide 00 ne) 0.2 MG/MG Topical Ointment [Calmosepti ne Ointment] potassium No Notes: Memori a chloride 1-25 (Same as: l 13:31: Potassium Chloride) Protonix [...] Levetiracet No Notes: [facility] raeann am 100 -24 Same as: l MG/ML Oral 03:00: Keppra Lanny nn Solution 00 [Keppra] gabapentin No Notes: Memor ia 300 MG Oral 05-26 (Same as: l Capsule 22:00: Neurontin) Acetaminoph No 100.4 F, M emoria en 23 Start l 21:38: date: 05/26/15 15:38:00, Duration: 30 day, Stop date: 06/25/15 15:37:00 Zofran No Notes: Memoria 1-23 (Same as: l 21:37: Zofran) MEDICATION WASTE Product Size: 4 mg Product Wasted: 0 mg Glucose 50 No 1,000 mL, Me moria MG/ML / 05-26 Rate: 75 l Sodium 11:57: ml/hr, Belk Chloride 00 Infuse 0.154 over: 13.3 MEQ/ML hr, Route: Injectable IV, Dosing Solution Weight 76.818 kg, Total Volume: 1,000, Start date: 05/26/15 5:57:00, Duration: 30 day, Stop date: 06/25/15 5:56:00 Gastrografi No Notes: [facility] raeann n 05-25 WASTE: F/P l 20:51: - Black; E Matty - Municipal Trash Bin Flagyl No Notes: Memoria - (Same as: l 17:00: Flagyl) Matty Avoid alcohol. 200 ML No Notes: Do Memori a Ciprofloxac 05-24 not l in 2 MG/ML 17:00: refrigerat H ermann Injection 00 e Thyroxine No Notes: Memori a - (Same as: l 15:00: Synthroid) Belk 00 Keppra No Notes: Memoria - Same as l 03:00: Keppra Belk 00 Mix with 100 mL NS, LR or D5W MEDICATION WASTE Product Size: 500 mg Product Wasted: ___ mg Dexamethaso No Notes: [facility] raeann ne - Concentrat l 03:00: ion: Matty 00 4mg/ml Protonix No Notes: Memoria - (Same as: l 03:00: Protonix) Matty Dexamethaso No Notes: [facility] raeann ne - Give with l 23:00: food. Matty 00 (Same As: Decadron) Morphine No Notes: Memoria 1-20 (Same l 22:26: as:MORPhin Matty 00 e Sulfate) Clindamycin No Notes: [facility] raeann -20 (clindamyc l 22:26: in 150 Matty 00 mg/1 ml (600 mg/4 ml VL) INJ) (Same As: Cleocin) D5NS 1,000 No 1,000 mL, Me moria mL -20 Rate: 75 l 19:42: ml/hr, Matty 00 Infuse over: 13.3 hr, Route: IV, Dosing [...] / 1-15 (Same as: l Hydrocodone 16:45: [place] Lanny nn Bitartrate 00 325/5) Do 5 MG Oral not exceed Tablet 4gm/day of [[place] acetaminop 5/325] hen. Multihance No Notes: Memor ia 529 mg/mL 1-14 Same as l 04:17: Multihance Keppra No Notes: Memoria 1-14 Same as l 02:23: Keppra Mix with 100 mL NS, LR or D5W MEDICATION WASTE Product Size: 500 mg Product Wasted: ___ mg Ativan No Notes: Memoria -13 (Same as: l 07:13: Ativan) Ketorolac No 4 days Memor ia -13 l 03:55: MEDICATION WASTE Product Size: 30 mg Product Wasted: ___ mg Versed No 2 mg, Memoria 05-14 Route: l 20:56: IVP, ONCE, Dosing Weight 76.818, kg, PRN Anxiety, Start date: 05/14/15 14:56:00, Stop date: 06/13/15 14:55:00 Versed No Notes: Memoria 05-14 (Same as: l 16:57: Versed) MEDICATION WASTE [...] Memoria ne -11 MEDICATION l 00:00: WASTE Matty Product Size: 10 mg Product Wasted: ___ mg Pepcid No Notes: Memoria 1-10 (Same as: l 13:31: Pepcid) Dexamethaso No Notes: Memoria ne 1-10 MEDICATION l 00:00: WASTE Matty 00 Product Size: 10 mg Product Wasted: [...] date: 05/11/15 11:27:00 Versed No Notes: Memoria 08 (Same as: l 14:01: Versed) lamotrigine No [...] sodium, 05-10 porcine l porcine 14:00: heparin Belk 2500 UNT/ML 00 Injectable Solution Versed No Notes: Memoria 05-10 (Same as: l 08:00: Versed) MEDICATION WASTE Product Size: 2 mg Product Wasted: _1__ mg Saline No Notes: Memoria Flush 0.9% 05-10 (Same as: l 03:00: BD Matty 00 Posiflush) Acetaminoph No 1,000 mg = Memoria en 500 MG 1-07 2 tab, PO, l Oral Tablet 00:03: [...] = 1 M emoria 100 mg oral 05-09 tab, PO, l tablet 23:57: Daily, # Belk 00 30 tab, 0 Refill(s) Levetiracet No 1,000 mg = Memoria am 1000 MG 06 1 tab, PO, l Oral Tablet 23:57: [...] 00 AT BEDTIME Physici ans Sertraline Sertraline 2006-0 Yes BLAINE TAKE 1 [facility] HCl - 100 HCl - 100 3-21 [facility] TABLET BY ity of MG Oral MG Oral 00:00: M.D. MOUTH [place] Tablet Tablet 00 DAILY Physici ans clonazePAM clonazePAM 2006-0 Yes BLAINE TAKE 1 [facility] 0.5 MG Oral 0.5 MG Oral 3-21 MERCER TABLET BY ity of Tablet Tablet 00:00: M.D. MOUTH [place] 00 TWICE Physici DAILY ans Immunizations Ordered Filled Immunization Date Status Comments [facility] e Immunization Name Name Influenza 2013-03-01 Completed [facility] 15:07:00 [place] [facility] Vital Signs Vital Name Observation Time Observation Value Comments Source Systolic (mm Hg) 2020-04-19 [facility] rmann 13:27:00 Diastolic (mm Hg) 2020-04-19 [facility] ermann 13:27:00 Respitory Rate 2020-04-19 [facility] 13:27:00 Respitory Rate 2020-04-19 [facility] 10:59:00 Systolic (mm Hg) 2020-04-19 [facility] rmann 10:59:00 Diastolic (mm Hg) 2020-04-19 [facility] ermann 10:59:00 Respitory Rate 2020-04-19 [facility] 02:40:00 Systolic (mm Hg) 2020-04-19 [facility] rmann 02:40:00 Diastolic (mm Hg) 2020-04-19 [facility] ermann 02:40:00 Heart Rate 2020-04-18 [facility] n 13:16:00 Height 2020-04-16 157.48 cm [facility] Parveen n 21:41:00 Height 2020-04-16 157.48 cm [facility] Parveen n 17:17:00 Height 2020-04-16 157.48 cm [facility] Parveen n 13:34:00 Respitory Rate 2020-04-16 [facility] 07:00:00 Respitory Rate 2020-04-16 [facility] 06:30:00 Height 2020-04-16 157.48 cm [facility] Parveen n 06:12:00 Respitory Rate 2020-04-16 [facility] 06:00:00 Height 2020-04-16 157.48 cm [facility] Parveen n 01:38:00 Height 2020-04-15 157.48 cm [facility] Parveen n 20:47:00 Systolic (mm Hg) 2020-04-15 [facility] 15:15:00 Diastolic (mm Hg) 2020-04-15 [facility] 15:15:00 Systolic (mm Hg) 2020-04-15 [facility] 15:00:00 Diastolic (mm Hg) 2020-04-15 [facility] 15:00:00 Systolic (mm Hg) 2020-04-15 [facility] 14:00:00 Diastolic (mm Hg) 2020-04-15 [facility] 14:00:00 Weight 2020-04-10 [facility] n 15:18:00 BMI Calculated 2020-04-10 [facility] 15:18:00 Heart Rate 2020-04-10 [facility] n 06:41:00 Heart Rate 2020-04-10 [facility] n 06:40:00 Respitory Rate 2020-04-07 [facility] 00:30:00 Systolic (mm Hg) 2020-04-07 [facility] 00:30:00 Diastolic (mm Hg) 2020-04-07 [facility] 00:30:00 Respitory Rate 2020-04-07 [facility] 00:15:00 Systolic (mm Hg) 2020-04-07 [facility] 00:15:00 Diastolic (mm Hg) 2020-04-07 [facility] 00:15:00 Respitory Rate 2020-04-07 [facility] 00:00:00 Systolic (mm Hg) 2020-04-07 [facility] 00:00:00 Diastolic (mm Hg) 2020-04-07 [facility] 00:00:00 Heart Rate 2020-04-06 [facility] 14:20:00 Height 2020-04-04 170.18 cm [facility] 17:14:00 Weight 2020-04-04 [facility] 17:14:00 BMI Calculated 2020-04-04 [facility] 17:14:00 Respitory Rate 2019-12-09 [facility] 22:00:00 Systolic (mm Hg) 2019-12-09 [facility] 22:00:00 Diastolic (mm Hg) 2019-12-09 [facility] 22:00:00 Respitory Rate 2019-12-09 [facility] 21:00:00 Systolic (mm Hg) 2019-12-09 [facility] 21:00:00 Diastolic (mm Hg) 2019-12-09 [facility] 21:00:00 Respitory Rate 2019-12-09 [facility] 20:00:00 Systolic (mm Hg) 2019-12-09 [facility] 16:00:00 Diastolic (mm Hg) 2019-12-09 [facility] 16:00:00 Temperature Oral 2019-12-06 97.8 F [facility] (F) 17:30:00 Temperature Oral 2019-12-06 98 F [facility] (F) 15:30:00 Height 2019-12-06 167.64 cm [facility] 03:02:00 BMI Calculated 2019-12-06 [facility] 03:02:00 Weight 2019-12-06 [facility] 03:02:00 Heart Rate 2019-12-06 [facility] 03:02:00 Body height 2019-12-02 66 [in_us] [facility] 14:58:00 [place] [facility] Weight 2019-12-02 155 [lb_av] [facility] 14:58:00 [facility] Body mass index 2019-12-02 25.02 kg/m2 [facility] ([facility] [Ratio] 14:58:00 [facility] Body temperature 2019-12-02 98.3 [degF] [facility] 14:58:00 [facility] Systolic blood 2019-06-27 113 mm[Hg] Location: [facility] 15:52:00 Position: [place] [facility] Diastolic blood 2019-06-27 73 mm[Hg] Location: [facility] 15:52:00 Position: [place] [facility] Body height 2019-06-27 66 [in_us] [facility] 15:52:00 [facility] Weight 2019-06-27 165.6 [lb_av] [facility] 15:52:00 [place] [facility] Body mass index 2019-06-27 26.73 kg/m2 University o f (BMI) [Ratio] 15:52:00 [place] [facility] Heart Rate 2019-06-27 67 /min University 15:52:00 [place] [facility] BP Systolic 2019-05-09 101 mm[Hg] [facility] 10:28:[facility] Position: [place] [facility] Sitting BP Diastolic 2019-05-09 68 [...] s BP Systolic 2018-06-21 97 mm[Hg] Location: [facility]; [facility] 14:55:00 Position: [place] [facility] Sitting BP Diastolic 2018-06-21 61 mm[Hg] Location: [facility] 14:55:00 Position: [place] [facility] Sitting Height 2018-06-21 66 [in_us] University 14:55:00 [place] [facility] Weight 2018-06-21 154 [lb_av] [facility] 14:55:00 [place] [facility] Body Mass Index 2018-06-21 24.86 kg/m2 University o f Calculated 14:55:00 [place] [facility] Heart Rate 2018-06-21 65 /min University 14:55:00 [place] [facility] BP Systolic 2018-06-08 101 mm[Hg] Location: [facility] 15:17:00 Position: [place] [facility] Sitting BP Diastolic 2018-06-08 69 mm[Hg] Location: [facility] 15:17:00 Position: [place] [facility] Sitting Height 2018-06-08 66 [in_us] University 15:17:00 [place] [facility] Weight 2018-06-08 159 [lb_av] [facility] of 15:17:00 [place] [facility] Body Mass Index 2018-06-08 25.66 kg/m2 University o f Calculated 15:17:00 [place] [facility] Heart Rate 2018-06-08 61 /min University 15:17:00 [place] [facility] Systolic (mm Hg) 2015-07-06 [facility] He rmann 02:55:00 Diastolic (mm Hg) 2015-07-06 [...] naye 14:02:00 Temperature Oral 2015-05-28 97.4 F [facility] He rmann (F) 14:02:00 Respitory Rate 2015-05-28 [facility] 09:52:00 Heart Rate 2015-05-28 [facility] 09:52:00 Systolic (mm Hg) 2015-05-28 [facility] 09:52:00 Diastolic (mm Hg) 2015-05-28 [facility] ermann 09:52:00 Temperature Oral 2015-05-28 97.9 F [facility] He rmann (F) 09:52:00 Weight 2015-05-10 [facility] 19:54:00 Height 2015-05-09 165.1 cm [facility] 23:35:00 Weight 2015-05-09 [facility] 23:35:00 BMI Calculated 2015-05-09 [facility] 23:35:00 Procedures Procedure Date / Time Performing Clinician Source Performed Arterial catheterization 2020-04-15 03:54:00 Mem orial Belk or cannulation for sampling, monitoring or transfusion (separate procedure); percutaneous Intubation, endotracheal, 2020-04-15 03:54:00 Nc morial Matty emergency procedure Bronchoscopy, rigid or 2020-04-15 03:54:00 Memor ial Matty flexible, including fluoroscopic guidance, when performed; with bronchial alveolar lavage [QLH] VITAMIN D, 2019-05-20 00:00:00 [facility] 25-HYDROXY, LC/MS/MS Physicians [QLH] SODIUM 2019-05-09 00:00:00 [facility] Physicians [QLH] T4, FREE 2019-05-09 00:00:00 [facility] Physicians [QLH] VITAMIN D, 2019-05-09 00:00:00 [facility] 25-HYDROXY, LC/MS/MS Physicians [QL] VITAMIN D, 2018-06-24 00:00:00 [facility] 25-HYDROXY, LC/MS/MS Physicians Craniotomy 1999-05-04 06:00:00 [facility] Her bonilla History of Appendectomy [facility] Physicians History of Ovarian Surgery [facility] Physicians Biopsy of breast Missael sanchez Creation of MENS LOCKER ROOM ATTENDANT shunt [facility] rmnaye Excision of ovary [facility] Lanny nn Stereotactic focused gamma Memor ial Belk radiosurgery of cerebrum Plan of Care Planned Activity Planned Date Details Comments Source Diagnostic Test 2019-08-17 [QLH] VITAMIN D, [facility] Pending 00:00:00 25-HYDROXY, Physicians LC/MS/MS [code = [QLH] VITAMIN D, 25-HYDROXY, LC/MS/MS] Diagnostic Test 2018-10-02 [QLH] VITAMIN D, [facility] Pending 00:00:00 25-HYDROXY, Physicians LC/MS/MS [code = [QLH] VITAMIN D, 25-HYDROXY, LC/MS/MS] Encounters Start End Encounter Admission Attending Care Care Encounter Source Date/Time Date/Time Type Type Clinicians Facility Department ID 2020-04-10 2020-04-19 Outpatient Carmencita Harmon [facility] [id number] 00:17:00 12:40:00 05 2020-04-10 2020-04-10 Inpatient E [facility] MED [id number] [facility] 04:57:00 00:17:00 2020-04-10 2020-04-10 Outpatient Jane [facility] [id number] 00:17:00 00:17:00 Raven Parmar 05 2020-04-06 2020-04-06 Outpatient Esquenazi [facility] [id number] 05:39:00 23:59:00 Florina Ruiz 2020-04-06 2020-04-06 Outpatient Esquenazi [facility] [id number] 05:39:00 23:59:00 Joseph 03 Titus 2020-04-06 2020-04-06 Outpatient [facility] [id number] [facility] 05:39:00 05:39:00 2020-01-27 2020-01-27 Outpatient [facility] [id number] [facility] 05:00:00 05:00:00 2020-01-18 2020-01-18 Outpatient Ponce, [facility] [id number] 13:00:00 23:59:00 David 54 Meño 2020-01-18 2020-01-18 Outpatient [facility] [id number] [facility] 13:00:00 13:00:00 2019-12-05 2019-12-09 Outpatient Roly, [facility] [id number] 22:02:00 19:45:00 Roscoe 16 2019-12-05 2019-12-09 Outpatient Karshai, [facility] [id number] 22:02:00 19:45:00 Roscoe 16 2019-12-06 2019-12-05 Inpatient E [facility] MED [id number] [facility] 04:58:00 21:38:00 2019-12-02 2019-12-02 Appointmen BERENICE, UTP Otorhinolar [id number] [facility] 15:30:00 15:30:00 t; ALBINO yngology - [facility] 2019-12-02 2019-12-02 Appointmen PEBBLES ANTHONY Otorhinolar [id number] [facility] 14:30:00 14:30:00 t; RENUKA ANTHONY yngology - brooklyny nikki GRAYSON M.D. [facility] ans 2019-12-02 2019-12-02 Appointmen PEBBLES AGUSTIN Otorhinolar [id number] Univers 14:00:00 14:00:00 t; LE AGUSTIN yngology - ity [facility] [place] ans 2019-09-30 2019-09-30 Appointmen PEBBLES ANTHONY Otorhinolar [id number] Univers 09:15:00 09:15:00 t; RENUKA ANTHONY yngology - ity Noreen GRAYSON [facility]ici [facility] 2019-09-30 2019-09-30 Appointmen PEBBLES AGUSTIN [facility] [id number] Univers 08:30:00 08:30:00 t; LE AGUSTIN ity [facility] 2019-07-22 2019-07-22 AppointPEBBLES Cabral [id number] Univers 14:00:00 14:00:00 t; LE AGUSTIN ity [facility] 2019-06-27 2019-06-27 AppointPEBBLES Keys Neurology - 5 [id number] Univers 16:00:00 16:00:00 t; Denny VALLADARES M.D. [facility] M.DBlank ans 2019-06-20 2019-06-20 AppointPEBBLES Keys [id number] Univers 16:00:00 16:00:00 t; alexandro VALLADARES M.D. [facility] 2019-05-20 2019-05-20 AppointPEBBLES Cabral Otorhinolar [id number] Univers 14:00:00 14:00:00 t; LE AGUSTIN yngology - ity [facility] [place] ans 2019-05-09 2019-05-09 Appointmen PEBBLES PAIZ [facility] [id number] Univers 09:45:00 09:45:00 t; Noreen [facility] ans 2019-01-17 2019-01-17 [facility] [id number] 16:12:46 16:57:15 [facility] [id number] [facility] [id number] [place] [id number] Primary & 198 Specialty Care 2018-06-21 2018-06-21 PEBBLES Chun Neurology [id number] Univers 15:00:00 15:00:00 t; alexandro VALLADARES M.D. [place] [facility], Physici M.D. ans 2018-06-08 2018-06-08 [facility] [id number] Univers 15:40:00 15:40:00 t; Noreen ARELLANO it y [place] E[place] Physici M.D. ans 2018-03-22 2018-03-22 [id number] Univers 09:45:00 09:45:00 t; Noreen ARELLANO y of [place] [facility] M.D. ans 2017-09-21 2017-09-21 [facility] [id number] Univers 09:45:00 09:45:00 t; Noreen ARELLANO y of [place] Nieves Physici M.D. ans 2017-04-16 2017-04-16 AppointPEBBLES Waller [facility] [id number] Univers 15:30:00 15:30:00 t; RACHELLE RAWLS ity of [place], M.D. [place] M[facility]. Physici ans 2017-03-23 2017-03-23 [facility]na [facility] [id number] Univers 09:00:00 09:00:00 t; Noreen ARELLANO y of [place] Nieves Physici M.D. ans 2017-01-12 2017-01-12 AppointPEBBLES Waller [facility] [id number] Univers 10:30:00 10:30:00 t; RACHELLE RAWLS ity of [place], M.D. [place] M[facility]D. Physici ans 2016-10-21 2016-10-21 AppointPEBBLES Alves [id number] Univers 10:00:00 10:00:00 t; VIET GRIMM M.D. ity of [place] M.D. [facility] 2016-08-01 2016-08-01 Appointmen PEBBLES BA UTP [id number] Univers 09:00:00 09:00:00 t; TED BA [facility] 2016-07-15 2016-07-15 Appointmen PEBBLES GRIMM UTP [id number] Univers 10:30:00 10:30:00 t; VIET GRIMM M.D. ity of [place], M.D. [facility] 2016-07-01 2016-07-01 Appointmen FALGUNIDONAVAN, [facility] UTP [id number] Univers 09:30:00 09:30:00 t; TED BA [facility] 2015-07-26 2015-07-26 Outpatient Ponce, [facility] [id number] 13:46:00 23:59:00 David 55 Meño 2015-07-05 2015-07-05 Outpatient Geronimo [facility] [id number] 14:39:00 21:00:00 Vilma Guevara 2015-05-09 2015-05-28 Outpatient Juan, [facility] [id number] 16:27:00 16:51:00 Emma 06 Courtney 1999-11-19 1999-11-19 Orders Doctor MARTY [id number] 00:00:00 00:00:00 Only Unassigned, RIGO [id number] [facility] [id number] Results Test Description Test Time Test Comments Results Result Comments Source URINE AND STOOL 2020-04-16 Yellow [facility] 13:51:00 *NA*(04/16/20 Belk 7:51 AM) URINE AND STOOL 2020-04-16 [facility] 13:51:00 (04/16/20 7:51 Belk AM) URINE AND STOOL 2020-04-16 13:51:00 Test Item Value Reference Range Interpretation Comme nts UA Spec Grav (test code = UA Spec Grav) 1.015 1 [facility] IHTSP9239-95-23 13:51:00 Test Item Value Reference Range Interpretation Comments UA pH (test code = UA pH) 7.0 1 5.0-8.0 [facility] HermannURINE AND AYGNE2538-01-72 13:51:00Negative *NA*(04/16/20 7:51 AM)[facility] AND BIGGV6648-53-30 13:51:00Negative (04/16/20 7:51 AM) [facility] AND EHYQH2501-14-90 13:51:000.2[facility]annURINE AND LHMKD2289-23-80 13:51:00Negative (04/16/20 7:51 AM)[facility] AND IHOAD3294-70-12 13:51:00Negative (04/16/20 7:51 AM)[facility]ann[facility] AND DSPCM5496-00-99 13:51:002[facility]annURINE AND AVOYI5215-66-20 13:51:002 [facility]ann[facility] AND GMLAF4366-49-71 13:51:00Performed (04/16/20 7:51 AM) [facility]annURINE BKFK0260-51-64 13:51:09809Xvdoqafv HermannURINE CHEM 2020-04-16 13:51:16713Pueuouvz HermannCHEM LPQRM9223-97-55 09:08:003.7[facility] HermannCHEM LZFMF1736-98-42 09:08:002.3[facility] HermannCHEM RCSRD7492-40-78 09:08:14986Sieblsym HermannCHEM OIODO7864-19-99 09:08:0013[facility] HermannCHEM YQHLZ4824-53-67 09:08:000.52[facility] HermannCHEM OZKOQ5349-73-84 09:08:03406 [facility] HermannCHEM CNIRG3074-95-41 09:08:004.4[facility] HermannCHEM PANEL 2020-04-16 09:08:90348Wjgnfcni HermannCHEM APMSK3372-67-70 09:08:0032[facility] HermannCHEM QMPLZ8440-20-91 09:08:008.5[facility] HermannCHEM VWTTG5217-04-08 09:08:007.4[facility] HermannCHEM CIYIB3909-56-76 09:08:25788Rykqbzlx Matty OZDKOGHEAI1702-66-70 09:08:008.7[facility] ItbohkoPJWMTQCYHC1989-86-04 09:08:00 3.54[facility] JumxhuvOSTYIUFZZK7506-05-99 09:08:009.9[facility] HermannHEMATOLOGY 2020-04-16 09:08:0029.9[facility] JecfaigLVHJNLSURM9694-02-92 09:08:0084.5[facility] ChbdvfoMNJKDYGXGO2709-73-59 09:08:00 Test Item Value Reference Range Interpretation Comments MCH (test code = MCH) 28.0 pg 27.0-31.0 Memorial QfqkghmVRXSNCBGQZ9450-23-83 09:08:0033.2[facility] HermannHEMATOLOGY 2020-04-16 09:08:0016.5[facility] JdievpvQOESPBBDMN8496-45-22 09:08:37734Rplgfyto SfuhngkYWYGTWRBMD6439-35-23 09:08:007.3[facility] DziunekPXKBWIHCFE5635-36-28 09:08:007.6[facility] QibmptsPDSZQIQUIA9349-74-75 09:08:000.8[facility] Matty FCLUSSITNT1701-20-28 09:08:000.1[facility] YboukgbPQDMVVOMLI8003-31-31 09:08:00 80.0[facility] MjlvhrrSGROWZFNBS0864-86-06 09:08:007.0[facility] HermannHEMATOLOGY 2020-04-16 09:08:009.0[facility] TglsuakBKGMRLJVGJ3938-69-50 09:08:001.0[facility] ExuwryoDKNEPTAFIR7298-95-57 09:08:001.0[facility] YpsfwqhTUHZHTIOJY1838-03-32 09:08:002.0[facility] YuliuieJDPFBNCRSV7476-51-17 09:08:000.0[facility] Belk PARATHYROID GHYTVMS1101-68-99 09:08:001.06[facility] HermannPARATHYROID PROFILE 2020-04-16 09:08:001.09[facility] IcfchsjMXLEMXWEIZ4469-34-89 02:45:0018.7[facility] NqbznmmXSSPQSPGMQ8287-20-42 02:45:00 Test Item Value Reference Range Interpretation Comments Marty Sainz TND (test code = Marty Tr 2100 1 TND) [facility] HermannCARDIAC BPKKLCJ9059-24-09 14:08:000.17[facility] HermannCARDIAC ZYJSDVX7713-69-10 14:08:000.119[facility] HermannCHEM JLYST5096-28-12 06:16:000.86 [facility] HermannCHEM RNQFS7398-89-75 06:16:003.6[facility] HermannCHEM PANEL 2020-04-15 06:16:002.0[facility] HermannCHEM IOZXD8075-66-53 06:16:65514Dwfxfzus HermannCHEM BZCQH8821-04-77 06:16:0014[facility] HermannCHEM KXZVJ2020-49-65 06:16:000.53[facility] HermannCHEM JTQPV5784-31-76 06:16:08676Vhwgbzap HermannCHEM ONXBS8566-56-77 06:16:004.5[facility] HermannCHEM OQSEU4918-83-85 06:16:20879 [facility] HermannCHEM SACGT5256-74-00 06:16:0028[facility] HermannCHEM PANEL 2020-04-15 06:16:008.3[facility] HermannCHEM DXOMS1683-56-21 06:16:008.5[facility] HermannCHEM RCHXW7468-24-48 06:16:83009Yizsmjec RgsvjzdIUJSNAVEIB3007-59-64 06:16:0080.6[facility] VeurbkwDJLRTVFHOW7095-59-97 06:16:0012.9[facility] AASHXHLRMF0135-53-46 06:16:006.4[facility] VvkwcplCBMZTEPZCS6378-06-67 06:16:000.1 Memorial PdxzopuQWEPKLKXKI8140-55-16 06:16:005.5[facility] HermannHEMATOLOGY 2020-04-15 06:16:000.9[facility] SlsqojyQGPHNHRXOX2103-38-89 06:16:000.4[facility] VzmyzhbYXUUFHHEJI8097-61-15 06:16:006.8[facility] NulsslrPIUNPBKULU0651-49-45 06:16:003.56[facility] ZvqwtwsNDMAWRDYRV8505-60-23 06:16:009.9[facility] WNPNEFUWHA6998-83-86 06:16:0030.2[facility] DotwmesLOVFXJFBYW8862-91-34 06:16:00 84.8[facility] VgcciusGIRXXFCZEP9831-16-60 06:16:00 Test Item Value Reference Range Interpretation Comments MCH (test code = MCH) 27.9 pg 27.0-31.0 [facility] QaugxniNXXDXJECBI3125-45-76 06:16:0032.9[facility] HermannHEMATOLOGY 2020-04-15 06:16:0016.6[facility] SfocabgYNWJJXOKIU9617-82-38 06:16:02902Rsfdktbe CkwusbdEMNJBAIEWY1751-78-99 06:16:007.2[facility] XjmebcbEEHBNHHWMJ7643-32-82 06:16:0055.9[facility] HermannPARATHYROID BCKSGAF3470-76-21 06:16:001.09[facility] HermannPARATHYROID MANLXKP9685-89-50 06:16:001.10[facility] HermannCHEM PANEL 2020-04-15 00:14:74732Yrzappie HermannCHEM FZDNE2980-62-18 00:14:0013[facility] HermannCHEM FWTBA0203-81-91 00:14:000.62[facility] HermannCHEM XNDTQ5753-11-88 00:14:19823Rkyumpxc HermannCHEM ZBZZN1348-61-01 00:14:005.3[facility] HermannCHEM XRTUI6781-72-13 00:14:00772Wauqrmyt HermannCHEM YGQMM4871-62-83 00:14:0028 [facility] HermannCHEM AJBPC0658-38-93 00:14:007.3[facility] HermannCHEM PANEL 2020-04-15 00:14:008.2[facility] HermannCHEM OYJLW9898-28-12 00:14:15633Ttbpbljl HermannCHEM MZJXD2638-70-22 00:14:002.3[facility] HermannCHEM HJICU2414-11-76 00:14:003.1[facility] HermannCHEM URGOP7411-58-72 12:13:001.9[facility] HermannCHEM JCJLL7616-47-84 07:42:99227Fbsbmtwt HermannCHEM CHAZY8580-88-93 07:42:0012 [facility] HermannCHEM ZESZG8312-71-86 07:42:001.08[facility] HermannCHEM PANEL 2020-04-14 07:42:82446Pyewjoxa HermannCHEM CSQZS8151-86-70 07:42:003.0[facility] HermannCHEM BDJRS7076-41-13 07:42:76906Dxconbao HermannCHEM NDHVJ0894-74-46 07:42:0022[facility] HermannCHEM NYKOL9828-72-79 07:42:0017.0[facility] HermannCHEM MCLZU2918-06-10 07:42:008.5[facility] HermannCHEM UWVLC2418-21-77 07:42:0062 [facility] HermannCHEM LTBVS0724-48-44 07:42:002.4[facility] HermannCHEM PANEL 2020-04-14 07:42:002.8[facility] WzkvvvlSYYUBQCQKH9785-19-45 07:42:0069.7[facility] OkrltjnZWUNYEAERI9120-26-32 07:42:0025.6[facility] FwjxxwcYEOLGBDKNO1912-82-40 07:42:004.5[facility] AgvomieUSMDTZNZPN6799-08-10 07:42:000.1[facility] GZDHSFNLUB9820-72-08 07:42:000.1[facility] VfrjpewOZYHOABCJS9011-80-40 07:42:005.1 Memorial KfnyxsdGQBPUFQGOV8707-81-81 07:42:001.9[facility] HermannHEMATOLOGY 2020-04-14 07:42:000.3[facility] DzpqcuyACOZGXFRXT9760-05-63 07:42:007.3[facility] TsvstjgSYFJVHPUTG5976-58-49 07:42:003.94[facility] RwopbyhGNTLKAAEOB0347-30-80 07:42:0011.1[facility] AsnmvqsVDTLMGHVVK6409-24-82 07:42:0033.8[facility] Matty TOVBQQQIPT8038-44-73 07:42:0086.0[facility] IlprlamSUYRCPQJIO8579-65-50 07:42:00 Test Item Value Reference Range Interpretation Comments MCH (test code = MCH) 28.3 pg 27.0-31.0 [facility] HaqhaosQGLXHLEHPD2186-95-83 07:42:0032.9[facility] HermannHEMATOLOGY 2020-04-14 07:42:0016.4[facility] SvzahobTHOGEWSKHB8290-19-56 07:42:93567Ncmbtcsg VbrodhwCKGASDBQSB3276-38-52 07:42:007.4[facility] HermannPARATHYROID PROFILE 2020-04-14 07:42:001.09[facility] HermannPARATHYROID ECIDGYG7481-67-98 07:42:00 1.01[facility] DiixotxBSQPHQVAMZ9902-89-34 10:37:00 Test Item Value Reference Range Interpretation Comments PT (test code = PT) 14.3 s 12.0-14.7 [facility] WlbjcscWXOJPFIJVE6453-61-15 10:37:00 Test Item Value Reference Range Interpretation Comments INR (test code = INR) 1.11 1 0.85-1.17 [facility] BkidjieZAKNMRLUWM9138-59-05 10:37:00 Test Item Value Reference Range Interpretation Comments PTT (test code = PTT) 59.6 s 22.9-35.8 [facility] PtcvjwwRQCWXNGQES8826-22-95 10:37:00Normal (04/13/20 4:37 AM)[facility] PkjbchiRDHFZLOOBZ8585-36-66 10:37:00Normal (04/13/20 4:37 AM)[facility] INJIGOQWBM6006-93-81 10:37:0084.9[facility] BphlhdlUKTDOHDVZL5285-75-00 10:37:00 10.0[facility] AevftghUBSVCRQDVY6344-51-05 10:37:005.0[facility] HermannHEMATOLOGY 2020-04-13 10:37:000.1[facility] MyklmvkWRMCNVHPVA0348-95-95 10:37:007.0[facility] ZgkzzdeHYCSGVVWSP5487-31-49 10:37:000.8[facility] IejptbfVYHDSTMPHU9625-91-67 10:37:000.4[facility] OsfheteMJKVWEGOOI7428-15-62 10:37:008.2[facility] Matty EOYQREKZOH5859-01-93 10:37:003.66[facility] KenovtbHUJBDWBOHC4500-40-09 10:37:00 10.2[facility] PukmvnpORGXMSSCPE9040-06-35 10:37:0030.5[facility] HermannHEMATOLOGY 2020-04-13 10:37:0083.5[facility] AqzdtfcCHDYFHGHHZ0271-83-06 10:37:00 Test Item Value Reference Range Interpretation Comments MCH (test code = MCH) 27.8 pg 27.0-31.0 [facility] PshllwuJXBSDXLWSB6754-20-37 10:37:0033.3[facility] HermannHEMATOLOGY 2020-04-13 10:37:0016.6[facility] LxfhxvlSPQKKAZJVW3754-76-82 10:37:34599Wdfmdzbf PmazceyUVPTPFYJHC4536-61-81 10:37:007.4[facility] HermannPARATHYROID PROFILE 2020-04-13 10:37:000.97[facility] HermannPARATHYROID YSGKPPQ3320-60-17 10:37:00 1.03[facility] AklqfbhFFPXGPQCTW3237-67-54 23:46:00 Test Item Value Reference Range Interpretation Comments PTT (test code = PTT) 81.4 s 22.9-35.8 [facility] AhylvzcZVOIHMYTWU7682-94-10 15:59:00 Test Item Value Reference Range Interpretation Comments PTT (test code = PTT) 52.6 s 22.9-35.8 [facility] HermannCHEM PTYJL3978-46-69 09:24:001.2[facility] HermannCHEM PANEL 2020-04-12 09:24:005.3[facility] HermannCHEM OCAQI5657-01-12 09:24:002.2[facility] HermannCHEM AYYRM9936-96-37 09:24:0046[facility] HermannCHEM WKVER7443-79-54 09:24:0095[facility] HermannCHEM UJILS4564-24-16 09:24:0054[facility] HermannCHEM ZLRHF3602-43-13 09:24:000.3[facility] HermannCHEM KSAOK5325-14-71 09:24:000.1 [facility] HermannCHEM GKPRL9360-07-38 09:24:000.2[facility] HermannCHEM PANEL 2020-04-12 09:24:003.1[facility] HermannCHEM WCVDR1755-42-31 09:24:00 Test Item Value Reference Range Interpretation Comments A/G Ratio (test code = A/G Ratio) 0.7 1 0.7-1.6 [facility] HermannCHEM FFFIM6060-53-63 09:24:003.97[facility] HermannHEMATOLOGY 2020-04-12 09:24:004.0[facility] PguxwjuBHEPVMOFAM4216-70-05 09:24:000.0[facility] MzndwxmLHAXVIDDIE4040-84-79 01:48:0011.6[facility] HermannCARDIAC ENZYMES 2020-04-12 00:05:003.02[facility] HermannCHEM FSKFT8746-03-35 00:05:002.1[facility] HermannCARDIAC PVGRBKO3905-77-06 18:29:004.52[facility] HermannHEMATOLOGY 2020-04-11 18:29:00 Test Item Value Reference Range Interpretation Comments PT (test code = PT) 16.5 s 12.0-14.7 [facility] JkjasgfLETNJXKFEU2564-27-20 18:29:00 Test Item Value Reference Range Interpretation Comments INR (test code = INR) 1.32 1 0.85-1.17 [facility] VmwsxgmKLXVJUKEFC1491-37-53 07:14:0016.0[facility]annHEMATOLOGY 2020-04-11 07:14:000.0[facility] HjrkjluDRDHLQKZKF9291-78-18 19:28:00<0.50 [facility]annBACTERIAL - [id number] 16:56:00Urine *NA*(04/10/20 10:56 AM)[facility]annBACTERIAL - XMKQTSUM3594-52-99 16:56:00Negative (04/10/20 10:56 AM)[facility]annBACTERIAL - [id number] 14:40:00Negative (12/8/20 8:40 AM)[facility]annCARDIAC ANCHMFT0469-91-08 14:40:647670Kdciplno HermannCHEM ROTPT7976-17-97 14:40:005.4[facility] HermannCHEM KPVQP3731-48-70 14:40:002.6[facility] HermannCHEM EWBPF3133-89-58 14:40:0033[facility] HermannCHEM RJDFX9925-53-11 14:40:16305Mizabtgm HermannCHEM UYGSD2936-30-82 14:40:0051 [facility]annCHEM YNUCR9080-49-12 14:40:000.6[facility]annCHEM PANEL 2020-04-10 14:40:000.2[facility] HermannCHEM EBZBV2653-80-43 14:40:000.4[facility] HermannCHEM YDHKX4679-59-19 14:40:002.8[facility] HermannCHEM [id number] 14:40:00 Test Item Value Reference Range Interpretation Comments A/G Ratio (test code = A/G Ratio) 0.9 1 0.7-1.6 [facility] HermannCHEM [id number] 14:40:0029.0[facility] CIPROFLOXACIN:SUSC:PT:ISOLATE:ORDQN:[id number] 14:40:00Staphylococcus aureus [facility] HermannCIPROFLOXACIN:SUSC:PT:ISOLATE:ORDQN:[id number] 14:40:00 Staphylococcus aureusMemorial UrjmjmgWIECRWXRXT0195-97-26 14:40:0011.0[facility] DxzwchcIWRDRDDFWN4092-26-90 14:40:003.0[facility] HxjhbhtNEBWTFXHJY8065-64-42 14:40:000.0[facility] UifkaapIMASGNNTXK4843-60-17 14:40:00Normal (04/10/20 8:40 AM) [facility] TasjfdmWLYYKLCVMP4030-37-59 14:40:001+ *ABN*(04/10/20 8:40 AM)[facility] JcgdzsmNEUCKORISQ4374-10-38 14:40:00 Test Item Value Reference Range Interpretation Comments PT (test code = PT) 16.3 s 12.0-14.7 [facility] CvhxiaiCAJNHAOZUE2013-67-11 14:40:00 Test Item Value Reference Range Interpretation Comments INR (test code = INR) 1.30 1 0.85-1.17 [facility]annMOLECULAR ZZHBAHJFTF7716-76-25 14:40:00Nasophrngl Swb *NA*(04/10/20 8:40 AM)[facility]annMOLECULAR VAHUBOCXDM4402-34-04 14:40:00 Negative *NA*(04/10/20 8:40 AM)[facility]annMOLECULAR GWQJNKTKOJ1429-44-09 14:40:00Negative *NA*(04/10/20 8:40 AM)[facility]annMOLECULAR DIAGNOSTIC 2020-04-10 14:40:00Negative *NA*(04/10/20 8:40 AM)[facility]annSPECIAL RJDKNXQVR0372-90-28 14:40:005.1[facility]annURINE AND EYHPM4964-77-05 08:35:00Yellow *NA*(04/10/20 2:35 AM)[facility]UR[facility] AND ESXMB0723-12-56 08:35:00Clear (04/10/20 2:35 AM)[facility]ann[facility] AND [id number] 08:35:00 Test Item Value Reference Range Interpretation Comments UA Spec Grav (test code = UA Spec 1.016 1 Grav) [facility]UR[facility] AND [id number] 08:35:00 Test Item Value Reference Range Interpretation Comments UA pH (test code = UA pH) 6.0 1 5.0-8.0 [facility]UR[facility] AND [id number] 08:35:00Negative *NA*(04/10/20 2:35 AM) [facility]UR[facility] AND [id number] 08:35:00Large *ABN*(04/10/20 2:35 AM) [facility] AND ZYRJQ9810-60-66 08:35:002.0[facility]annUR[facility] AND GGAJD1014-94-04 08:35:00Negative (04/10/20 2:35 AM)[facility] AND FZXTS2054-09-98 08:35:00Negative (04/10/20 2:35 AM)[facility] WUBTR2961-07-42 08:35:001[facility]annUR[facility] AND JYZTY8697-59-40 08:35:005 [facility]annUR[facility] AND SUEYH3050-25-15 08:35:004[facility] HermannBLOOD BANK YUWOONG5198-82-02 08:33:00Negative (04/10/20 2:33 AM)[facility]annCHEM PANEL 2020-04-10 08:33:0012.83[facility] ZxjndoqSCIINTQCNA1845-95-99 08:33:00 Test Item Value Reference Range Interpretation Comments ACT (TEG) Rapid (test code = ACT (TEG) 105 s 86-118 Rapid) [facility] OmvsyqvSNHHWIMEZQ0733-59-33 08:33:00 Test Item Value Reference Range Interpretation Comments Split Point Rapid (test code = Split 0.5 min Point Rapid) [facility] JliwvekKJNZSHWSDH3238-78-85 08:33:00 Test Item Value Reference Range Interpretation Comments R-time Rapid (test code = R-time 0.6 min 0.4-0.7 Rapid) [facility] EctwsmdNCQACJJTJA7637-86-36 08:33:00 Test Item Value Reference Range Interpretation Comments K-time Rapid (test code = K-time 0.8 min 0.6-2.3 Rapid) [facility] XymkfwrVNMEZBONIE1167-55-21 08:33:00 Test Item Value Reference Range Interpretation Comments Angle Rapid (test code = Angle 79 degrees 64-80 Rapid) [facility] ZzlagcoVESJDBIWDN1797-45-32 08:33:00 Test Item Value Reference Range Interpretation Comments Max Amplitude Rapid (test code = Max 73 mm 52-71 Amplitude Rapid) [facility] YehowabAYYUUFIUUG6273-03-66 08:33:0013.5[facility]annHEMATOLOGY 2020-04-10 08:33:000.8[facility] XzqcsmiPPKYAMKKPN0187-71-23 08:33:00Not Detected (04/10/20 2:33 AM)[facility]annCHEM PXNXG2961-08-83 13:46:000.89[facility]annCHEM YSPMQ7991-54-52 13:46:0078[facility] IvowhhqXADXPTKYJUZQC0362-50-30 13:46:00<1[facility] ZkxyztaXFDPWPNHUE9482-15-09 12:31:00Not Detected (04/06/20 6:31 AM)[facility]annCHEM BVKUW8131-87-08 05:49:88029Skmkrezm HermannCHEM OOZVL1865-70-75 05:49:0015[facility]annCHEM MJTCV1407-65-84 05:49:000.92 [facility]annCHEM GDHUD8593-34-48 05:49:67635Igndinjh HermannCHEM PANEL 2019-12-08 05:49:003.4[facility]annCHEM YUZWG3027-20-94 05:49:76496Cbgzyvlc HermannCHEM PMOMJ2029-97-43 05:49:0028[facility]annCHEM ULMKQ4245-66-36 05:49:009.2[facility]annCHEM JJNSH6216-81-88 05:49:009.4[facility]annCHEM BUDVY0483-68-65 05:49:0075[facility] LxpbivkICTFNCTLXO8394-93-20 05:49:0079.4 [facility] ZoqteulLFRWWVZUVL0742-89-30 05:49:0016.0[facility]annHEMATOLOGY 2019-12-08 05:49:004.3[facility] QmwmuxdCOGAYROJUK9854-02-10 05:49:000.3[facility] PamsgogFWXPPBGAHD6724-43-00 05:49:007.4[facility] VnvfedpKNNRRBSGLT9299-02-96 05:49:001.5[facility] FryhokmWEALTNKOJB9996-27-82 05:49:000.4[facility] YCHLCIOOFG1194-38-18 05:49:009.3[facility] GvpqunpPDGUBPMDPL7619-54-33 05:49:00 4.33[facility] PpfmrbtDTLWDTKEDU2360-63-49 05:49:0012.6[facility]annHEMATOLOGY 2019-12-08 05:49:0037.3[facility] QjmxvpbDCTHGKWDLT0337-45-17 05:49:0086.2[facility] MlvxaxtRKSIBSZLQH5395-17-13 05:49:00 Test Item Value Reference Range Interpretation Comments MCH (test code = MCH) 29.2 pg 27.0-31.0 [facility] DfpoudpOYXQZFQUFF6672-73-62 05:49:0033.8[facility] HermannHEMATOLOGY 2019-12-08 05:49:0013.8[facility] AwhotwlVCFPSWFQIN1691-17-59 05:49:32262[place] VxsedgeZBETLKABBG6343-02-51 05:49:008.0[facility]annURINE TQDC7185-86-29 00:14:00Negative (12/07/19 7:14 PM)[facility] KUGQV8733-10-80 14:26:43Yellow *NA*(12/06/19 9:26 AM)[facility] RNQKW4562-74-41 14:26:43Slight *ABN*(12/06/19 9:26 AM)[facility] MUTUZ5918-56-43 14:26:43 Test Item Value Reference Range Interpretation Comments UA Spec Grav (test code = UA Spec 1.009 1 Grav) [facility] XWFYG6889-98-55 14:26:43 Test Item Value Reference Range Interpretation Comments UA pH (test code = UA pH) 7.0 1 5.0-8.0 [facility] ZNKOU9215-33-21 14:26:43Negative *NA*(12/06/19 9:26 AM) [facility] GPQYP9376-71-51 14:26:43Small *ABN*(12/06/19 9:26 AM) [facility] LTRJB3287-58-90 14:26:43<1.0[facility] TUYUT4587-40-50 14:26:43Negative (12/06/19 9:26 AM)[facility] VUVMW0450-93-33 14:26:43Large *ABN*(12/06/19 9:26 AM)[facility] RFCTC3118-96-90 14:26:431[facility] AND KQGPX4312-13-08 14:26:431 [facility] QjetqxjDAZJVSYHTB9378-11-07 09:39:00Not Detected (12/06/19 4:39 AM) [facility]annCHE[facility] SMFHO5257-15-58 07:59:99329Vicqutmp HermannCHEM PANEL 2019-12-06 07:59:007[facility]annCHEM YYLYI1159-73-15 07:59:000.92[facility]annCHEM BQQJJ4183-74-68 07:59:43731Ideufzdb HermannCHEM RZRGQ2943-82-60 07:59:004.7[facility]annCHEM GVRMG2488-71-45 07:59:80660Bsmoviij HermannCHEM SIYYM5675-80-87 07:59:0022[facility]annCHEM UXICD5978-36-20 07:59:009.4 [facility]annCHE[facility] MCQTJ6155-72-51 07:59:0013.7[facility] HermannCHEM PANEL 2019-12-06 07:59:0075[facility]annCHEM MDUVY1625-26-44 07:59:001.1[facility] MqutnpbWMLHADBZKO8631-72-65 07:59:004.5[facility] HunpgitSBCWSBFUYB9506-72-66 07:59:004.87[facility] MdglugdDZCATZNTRQ7427-57-41 07:59:0014.4[facility] WBPKBERWGP5877-09-40 07:59:0042.4[facility] ZauhhhdGPIUJUTIVQ5308-43-89 07:59:00 87.0[facility] EdtcydgBUTLCBRHOC5215-80-00 07:59:00 Test Item Value Reference Range Interpretation Comments MCH (test code = MCH) 29.5 pg 27.0-31.0 [facility] GcwmeftCTPHDBZYFB1064-58-00 07:59:0033.9[facility] HermannHEMATOLOGY 2019-12-06 07:59:0013.9[facility] XwxodqlVEYXDTKGVF2063-79-83 07:59:60166Lxtuloiu JrmjpweWIGUSWECSA1267-33-21 07:59:007.3[facility] CavccdxCXSYWHIFNS4428-75-63 07:59:00 Test Item Value Reference Range Interpretation Comments PT (test code = PT) 12.1 s 12.0-14.7 [facility] QxhxhceDEXIAJFEML2751-67-14 07:59:00 Test Item Value Reference Range Interpretation Comments INR (test code = INR) 0.90 1 0.85-1.17 [facility]FYXNJBQY6734[facility] 07:59:00 Test Item Value Reference Range Interpretation Comments PTT (test code = PTT) 26.2 s 22.9-35.8 [facility]SbvmkxnYJPJTVOCRY3218-73-63 07:59:00 Test Item Value Reference Range Interpretation Comments ACT (TEG) Rapid (test code = ACT (TEG) 97 s 86-118 Rapid) [facility] CenterMvrtzoxAZKVOWDIUQ1237-30-82 07:59:00 Test Item Value Reference Range Interpretation Comments Split Point Rapid (test code = Split 0.4 min Point Rapid) [facility] CenterOqdxsinKWBRVTUHDI2858-80-51 07:59:00 Test Item Value Reference Range Interpretation Comments R-time Rapid (test code = R-time 0.5 min 0.4-0.7 Rapid) [facility] CenterZhasnqrGADYPQRMAA4995-44-89 07:59:00 Test Item Value Reference Range Interpretation Comments K-time Rapid (test code = K-time 3.0 min 0.6-2.3 Rapid) [facility] CenterCpveloaZPFAZQDMWK2913-39-08 07:59:00 Test Item Value Reference Range Interpretation Comments Angle Rapid (test code = Angle 71 degrees 64-80 Rapid) [facility] CenterYkndesrBWCSMLQQHT5477-67-75 07:59:00 Test Item Value Reference Range Interpretation Comments Max Amplitude Rapid (test code = Max 49 mm 52-71 Amplitude Rapid) [facility] CenterAfsjufsGOMSRSEIKF3510-65-20 07:59:004.8[facility]annHEMATOLOGY 2019-12-06 07:59:000.0[facility] JlruenpBLHZJMVNTT8799-92-53 07:59:00Normal (12/06/19 2:59 AM)[facility] RqmjapwGUZUZWKWIX5322-65-30 07:59:00Normal (12/06/19 2:59 AM)[facility] GexujusITHMZCNXKS2094-49-76 07:59:0075.9[facility] HermannHEMATOLOGY 2019-12-06 07:59:0021.3[facility] OltniatEORPKHFQWO2885-45-67 07:59:002.3[facility] YonideaVXUYQNIKND9893-94-01 07:59:000.1[facility] HmfvsetLSHSJJJLLE7562-20-95 07:59:000.4[facility] HwkfiscLITCQNEXAV6045-92-41 07:59:003.4[facility] PPKHNHEKNZ2821-24-76 07:59:001.0[facility] PpfizsqHCSXZLCPRC5159-07-76 07:59:000.1 [facility] BANK WJDKVXS8680-59-81 07:58:00Negative (12/06/19 2:58 AM) [facility]] AEIODH9588-51-53 12:34:00 Test Item Value Reference Range Interpretation Comments SODIUM (test code = 138 mmol/L 135-146 N SPECIMEN RECEIVED DATE SODIUM) AND TIME: [facility]] T4, PGSR3312-88-20 12:34:00 Test Item Value Reference Range Interpretation Comments T4, FREE (test 1.2 ng/dl 0.8-1.8 N SPECIMEN RECE IVED DATE AND code = T4, FREE) TIME: [facility]] VITAMIN D, 25-HYDROXY, LC/MS/[id number] 12:34:00 Test Item Value Reference Range Interpretation [...] D, (D2,D3), LC/MS/MS is recommended: order code 17564 (pat ients >2yrs). For mor e information on this test, go to:http://educa [email or web address] /faq/FAQ16 3(This link is being provided for informational/e ducational purposes only.) SPECIMEN RECEIVED DATE A ND TIME: [facility]] BASIC METABOLIC PANEL W/BFXM6882-56-99 16:42:00 Test Item Value Reference Range Interpretation Comments GLUCOSE; Normal 89 mg/dl 65-139 N Non-fasting (test code = reference inter clem 1547-9) UREA NITROGEN 10 mg/dl 7-25 N (BUN) (test code = UREA NITROGEN (BUN)) CREATININE (test 0.99 mg/dl 0.50-1.10 N code = CREATININE) eGFR NON- 69 {ML/MIN/1.7} > OR = 60 N ZIMBABWEAN (test code = eGFR NON-) eGFR 80 {ML/MIN/1.7} > OR = 60 N ZIMBABWEAN (test code = eGFR ) BUN/CREATININE NOT [...] SPECIMEN RECEIVED = CALCIUM) DATE AND TIME: [facility]] T4, TOTAL (THYROXINE)2018-06-08 16:42:00 Test Item [...] = 12.9 nmol/LSPECIMEN RECEIVED DATE AND TIME: [facility]] T4, [id number] 16:42:00 Test Item Value Reference Range Interpretation Comments T4, FREE (test 1.2 ng/dl 0.8-1.8 N SPECIMEN RECE IVED DATE AND code = T4, FREE) TIME: [facility]] TSH, 3RD CDZIMFIKUG7406-15-64 16:42:00 Test Item Value Reference Range Interpretation Comments TSH; Below Low 0.15 {MIU/L} Reference Ran ge Threshold (test > or = 20 code = 42073-2) Years 0.40- 4.[address] 0.26-2.66 Second trimeste r 0.55-2.73 Third trimester 0.43-2.91SPECIM EN RECEIVED DATE A ND TIME: 62 [facility]] VITAMIN D, 25-HYDROXY, LC/MS/[id number] 16:42:00 Test Item Value Reference Range Interpretation [...] D, (D2,D3), LC/MS/MS is recommended: order code 55606 (pat ients >2yrs). For mor e information on this test, go to:http://educa [email or web address] /faq/FAQ16 3(This link is being provided for informational/e ducational purposes only.) SPECIMEN RECEIVED DATE A ND TIME: [facility]icians[facility] BTRXN9004-41-09 21:46:0096[facility] CHEM UJJFU3024-72-62 21:46:008.1[facility] HermannCHEM CXKZJ5870-69-33 21:46:0026 [facility]annCHEM IUJLO7505-11-05 21:46:000.77[facility] HermannCHEM PANEL 2015-07-05 21:46:003[facility]annCHEM UEYGL6191-95-88 21:46:003.1[facility]annCHEM AAESL4902-55-48 21:46:08442Trwmeduk HermannCHEM IRJFB5969-70-67 21:46:32988Jsfsykbn HermannCHEM EEXPP1821-55-58 21:46:24472Oopnynyb HermannCHEM EMZGO3445-25-51 21:46:0012.1[facility] UghsoyzITTUUCYXRP2803-97-22 21:46:00Normal (07/05/15 3:46 PM)[facility] DfvmigcZPJNVENJDV5955-63-69 21:46:00 Test Item Value Reference Range Interpretation Comments Tot Cell Ct (test code = Tot Cell Ct) 100 1 [facility] JaqdwokGLJUPATSCU2972-22-22 21:46:000.0[facility] HermannHEMATOLOGY 2015-07-05 21:46:00Normal (07/05/15 3:46 PM)[facility] SjnbdzwTLLXIYAELY3355-94-17 21:46:0040.0[facility] WcjlrvmNZXLYKJXAK2597-48-60 21:46:004.0[facility] TTUPRETMJC8531-19-78 21:46:003.5[facility] IbaugxyJRYKHEFSKV8322-34-76 21:46:002.5 [facility] MejzpolFQTQDQMFAP8099-56-60 21:46:000.2[facility] HermannHEMATOLOGY 2015-07-05 21:46:0056.0[facility] AdyvbfrIPFZRPZQSD9569-45-95 21:46:000.0[facility] UzhoibgRSEMBBWXMB7313-44-91 21:46:0015.8[facility] GehadmgESAUJZYDWA9025-06-02 21:46:006.9[facility] TpyczobJPBSXEHMKC1742-19-85 21:46:96283Lmjvamys Matty RHXIZIWXBR1982-28-18 21:46:0083.1[facility] OrhhhqjTNRNUNFMXC1445-44-19 21:46:00 3.91[facility] QyosyuhOAYMFHFRHO6079-83-62 21:46:006.2[facility] HermannHEMATOLOGY 2015-07-05 21:46:0032.5[facility] WqycelbBJEBLJRLQC5356-17-66 21:46:0010.8[facility] EynouivFYPEAHOWUZ0801-51-58 21:46:0033.2[facility] JhdxqstRWXVKFQZHR6202-50-20 21:46:00 Test Item Value Reference Range Interpretation Comments MCH (test code = MCH) 27.6 pg 27.0-31.0 [facility] STOSQ8230-11-95 21:19:00Negative (07/05/15 3:19 PM) [facility] CPLXN9630-61-75 21:19:00Negative (07/05/15 3:19 PM) [facility] NHQDB7939-47-79 21:19:000.2[facility] AND UOMHS6620-17-78 21:19:00Negative (07/05/15 3:19 PM)[facility] STOOL 2015-07-05 21:19:00Negative *NA*(07/05/15 3:19 PM)[facility] STOOL 2015-07-05 21:19:00 Test Item Value Reference Range Interpretation Comments UA pH (test code = UA pH) 7.0 1 5.0-8.0 [facility] MVDAW3046-52-67 21:19:00 Test Item Value Reference Range Interpretation Comments UA Spec Grav (test code = UA Spec 1.015 1 Grav) [facility] ONPXK4672-31-32 21:19:00Clear (07/05/15 3:19 PM)[facility] GNYIU3350-22-26 21:19:00Yellow *NA*(07/05/15 3:19 PM)[facility] VLKVU7592-06-42 21:19:00None Seen (07/05/15 3:19 PM)[facility]annCHEM FTKXV7850-14-46 18:52:0093[facility]annCHEM EVNUH1935-68-85 18:52:003.3[facility] HermannCHEM UNKZG2321-83-09 18:52:82247Jmpcsnan HermannCHEM NBWHA9544-11-56 18:52:000.80[facility]annCHEM DXTGX3580-68-80 18:52:008.6 [facility]annCHEM ZQXTD4394-90-22 18:52:0027[facility]annCHEM PANEL 2015-05-27 18:52:0013.3[facility] HermannCHEM WOVEL0335-86-98 18:52:51267Xvduutuu HermannCHEM UNPWL2066-03-33 18:52:0093[facility]annCHEM SEACT0996-89-29 18:52:0014[facility] HermannCHEM AIOLI2155-22-74 18:52:000.3[facility]annCHEM GZDHR3692-19-60 18:52:003.3[facility]annCHEM JGFCA0921-84-07 18:52:000.1 [facility]annCHEM RGXHS0790-59-09 18:52:81674Daihmzxu HermannCHEM PANEL 2015-05-27 18:52:0031[facility] HermannCHEM FLSDS4690-55-38 18:52:003.4[facility]annCHEM TAFXE4260-72-95 18:52:86275Srkartzv HermannCHEM YRPMH8582-60-73 18:52:000.2[facility]annCHEM HJPKN1004-54-21 18:52:001.0[facility]annCHEM GQMWE8367-07-87 18:52:006.7[facility]annCHEM JFCEU9917-12-63 12:20:000.9 [facility]annCHEM ODFCJ4061-79-61 12:20:003.8[facility] HermannCHEM PANEL 2015-05-25 12:20:0011.1[facility]annCHEM TTWHL3576-92-42 12:20:0023[facility]annCHEM JNLVR4967-15-68 12:20:56800Wusscxln HermannCHEM BQRMY3538-33-90 12:20:56606Ufiyndst HermannCHEM AYHKA5890-21-87 12:20:000.71[facility]annCHEM JFBML2739-81-14 12:20:004.1[facility]annCHEM SGGCH1316-85-20 12:20:0024 [facility]annCHEM GUCPE6759-35-90 12:20:35342Hnicuuva HermannCHEM PANEL 2015-05-25 12:20:003.3[facility] HermannCHEM FHFQI3536-71-89 12:20:06763Uvvwzbqp HermannCHEM AVSME2829-15-29 12:20:0050[facility]annCHEM OJHOG5963-93-65 12:20:008.2[facility]annCHEM FDWDG3920-95-70 12:20:007.1[facility]annCHEM UASZY7896-67-52 12:20:000.4[facility]annCHEM TKPNN9779-80-36 12:20:43466 [facility]annCHEM XEBGJ2006-43-42 12:20:18804Rddfsvqd HermannCHEM PANEL 2015-05-25 12:20:0016[facility] TbzopbfGEQZNDOKEU5874-98-70 12:20:0014.9[facility] XrghpwrXHKRCRALER3685-59-74 12:20:003.4[facility] NqrklonFYGNZMLGYN3573-50-08 12:20:000.1[facility] RbqhmuuTDASMMQDNN8652-55-22 12:20:000.2[facility] MDYDIGKHXT6750-51-83 12:20:001.3[facility] VxlgfawBORRFBJZHS1964-43-12 12:20:000.3 [facility] IlsaxrhGRPSHDGTAB2409-25-04 12:20:006.9[facility] HermannHEMATOLOGY 2015-05-25 12:20:0081.4[facility] ZpnaoaoVUVKAWCATU4180-04-18 12:20:004.66[facility] TmvafdyNVZUEBOLKI8064-97-48 12:20:0039.4[facility] FgpzwfyEIAYUDLAZA6850-13-04 12:20:0013.1[facility] VpzyznpGPVWKSZHVT5219-94-01 12:20:008.5[facility] GYWBNABDQS9028-10-36 12:20:0033.2[facility] KfqpszyBDRHIHBNIU9910-56-34 12:20:00 Test Item Value Reference Range Interpretation Comments MCH (test code = MCH) 28.1 pg 27.0-31.0 [facility] MfwesfdIKGQNTIMBE3585-35-88 12:20:0084.5[facility] HermannHEMATOLOGY 2015-05-25 12:20:007.8[facility] NabgoplQEKGFWBFKO6201-86-22 12:20:60812Uylvtuug JcgrbglXXEYKVAVFW8663-47-06 12:20:0015.9[facility] HermannCHEM WNQNN0480-66-57 06:01:78421Ignlbibx HermannCHEM WQHOY5244-38-58 06:01:001.0[facility] HermannCHEM BBBTO4663-62-38 06:01:0096[facility] HermannCHEM VHHBF8158-03-04 06:01:009.1 [facility]annCHEM OUIPW6409-24-64 06:01:89776Ifljxfcm HermannCHEM PANEL 2015-05-24 06:01:000.6[facility] HermannCHEM RWYJE5409-98-66 06:01:0083[facility] HermannCHEM EZMHW7594-80-12 06:01:007.4[facility] HermannCHEM RGYGY8334-70-35 06:01:0025[facility] HermannCHEM RGXZD8784-48-78 06:01:003.7[facility] HermannCHEM MUSTU9945-81-99 06:01:0015.6[facility] HermannCHEM MPWTI4530-99-92 06:01:003.7 [facility]annCHEM ULGRD1762-68-27 06:01:000.87[facility] HermannCHEM PANEL 2015-05-24 06:01:0022[facility] HermannCHEM SIZXB0161-71-97 06:01:77616Rmeibagi HermannCHEM DETEF1061-74-28 06:01:003.6[facility] HermannCHEM XFWQB9052-55-28 06:01:83939Wulijkmf HermannCHEM FISDA1316-81-20 06:01:0022[facility] HermannCHEM LYVGI2167-46-37 06:01:23835Hhxvblmd KqavwfuKTHKRCXMIB6158-57-19 06:01:000.1 [facility] KpqfrwfTLHZMLRFLM0397-89-79 06:01:0081.5[facility] HermannHEMATOLOGY 2015-05-24 06:01:000.7[facility] KmipangZTYKKOLIXF1581-79-94 06:01:0011.3[facility] BmnhftoMDDQKXTCRT2236-24-51 06:01:000.5[facility] SsbxwnqXYBZGRQPQP8967-89-74 06:01:001.7[facility] KghzeinMBFGOXNBVN8640-95-73 06:01:0012.4[facility] CQJHMIMIUP4674-78-50 06:01:000.4[facility] HdoqiuxTEITLMYQKC2567-63-18 06:01:005.2 [facility] NwqqcjaPXASSXQQWH9814-81-79 06:01:008.1[facility] HermannHEMATOLOGY 2015-05-24 06:01:0013.9[facility] DntmchwURMQCDCUDJ4030-66-70 06:01:0015.6[facility] JvuyrnfDSIPRSMFKZ6310-12-85 06:01:88059Cqctzaki UmvfvplPOVQTDAVYF6270-88-37 06:01:005.06[facility] GhtfncdSVFRHYCRIX8993-84-45 06:01:0032.2[facility] RYNWTHPVYH7723-29-18 06:01:00 Test Item Value Reference Range Interpretation Comments MCH (test code = MCH) 26.5 pg 27.0-31.0 [facility] ArykqopEAAWKZRXUU7903-67-74 06:01:0041.6[facility] HermannHEMATOLOGY 2015-05-24 06:01:0082.1[facility] UiiudxhWUCETPLZQK2574-17-38 06:01:0013.4[facility] KznifohBADIFBIRDF5664-22-26 21:17:0015.5[facility] QkcijlnZZZCMIXXMR4748-14-97 21:17:0033.2[facility] GbuzdtpSJHBYNKVVA4286-15-60 21:17:007.7[facility] TGDDVWHWGX1628-64-50 21:17:37104Oaxqjxgs BklibexYBBYSSPZKZ2890-73-07 21:17:00 11.3[facility] CxxsygnMQYFHDYHLF2255-36-95 21:17:0082.5[facility] HermannHEMATOLOGY 2015-05-23 21:17:00 Test Item Value Reference Range Interpretation Comments MCH (test code = MCH) 27.4 pg 27.0-31.0 [facility] JkoayyoPQYCWDDWKS8383-70-17 21:17:005.00[facility]annHEMATOLOGY 2015-05-23 21:17:0041.3[facility] KivfelwMGHSBNMUSE4888-49-62 21:17:0013.7[facility] YwyuausTCQBTIGYRN0181-69-92 21:17:007.8[facility] XgmddabUBYZNIQRFU2297-39-77 21:17:002.5[facility] KklbsmrTUNGNZFDES8580-52-58 21:17:0067.0[facility] NLMJVCVRGI8516-90-42 21:17:000.6[facility] CnohtduAUJYPVYPVB6926-48-11 21:17:005.0 [facility] AzpehjzXSFPKFKOER6847-78-12 21:17:003.0[facility] HermannHEMATOLOGY 2015-05-23 21:17:001.0[facility] BporzszBDGMYRIBRW5770-56-00 21:17:00Normal (05/23/15 3:17 PM)[facility] TyfmtmzIXOTAWOPWN7012-42-09 21:17:00Normal (05/23/15 3:17 PM)[facility] DeifbvwVAHQSCNUQR2435-43-64 21:17:000.0[facility] NBCPRVMMYG3683-48-50 21:17:002.0[facility] XouwoqwLFJLOMBOHQ0162-04-42 21:17:00 22.0[facility] QkyalozOQVEGTLZBD6076-45-09 21:17:00 Test Item Value Reference Range Interpretation Comments Tot Cell Ct (test code = Tot Cell Ct) 100 1 [facility]annCHEM XBCEU1087-40-88 15:16:0033[facility]annHEMATOLOGY 2015-05-21 10:35:000.5[facility] AbvunupYCMRWGIHZE0008-71-66 10:35:000.1[facility] NianucnKALEHCTKIZ5779-64-33 10:35:000.3[facility] HermannCHEM DHAMC1547-61-75 10:27:002.4[facility] HermannCHEM XXAAE3469-20-63 10:27:001.7[facility] XJCEGNJMRZ8650-80-50 10:27:00Normal (05/15/15 4:27 AM)[facility]annHEMATOLOGY 2015-05-15 10:27:00Normal (05/15/15 4:27 AM)[facility] WkmjdspDTJAZPHBCR4115-66-56 10:27:001.24[facility] LwporptRZHMJUNVQP4856-21-25 10:27:00 Test Item Value Reference Range Interpretation Comments PT (test code = PT) 15.9 s 12.0-14.7 [facility]annCHEM GDYFR5532-49-25 09:51:002.2[facility]annCHEM PANEL 2015-05-14 09:51:002.1[facility] DzacxhcOXPJMQHDVGNHV5897-69-50 12:58:00<0.03 [facility]annCHEM YSNGI3709-59-68 09:21:002.2[facility]annCHEM PANEL 2015-05-13 09:21:003.2[facility] UnqpyxnNMMBWFOSIT1911-60-71 09:21:00 Test Item Value Reference Range Interpretation Comments PT (test code = PT) 17.0 s 12.0-14.7 [facility] NsfdhkiPNIMHNJMQO0618-59-12 09:21:00 Test Item Value Reference Range Interpretation Comments PTT (test code = PTT) 53.3 s 22.9-35.8 [facility] VfcdrjfUAPFOHDDOA1846-94-59 09:21:001.35[facility]annHEMATOLOGY 2015-05-13 09:21:001+ (05/13/15 3:21 AM)[facility] LioclxdTKMUEMTWGC6278-00-10 09:21:001+ *ABN*(05/13/15 3:21 AM)[facility] SyrzzklQZZFABBBXT4487-85-38 10:03:00 0.1[facility]annDRUG SZHZMW5080-06-60 00:25:00Negative *NA*(05/11/15 6:25 PM) [facility]DR[facility] UIWRHL7372-86-85 00:25:00Negative *NA*(05/11/15 6:25 PM) [facility] VNKVJY4783-49-29 00:25:00Negative *NA*(05/11/15 6:25 PM) [facility]DR[facility] UNALLT8959-92-87 00:25:00Negative *NA*(05/11/15 6:25 PM) [facility] HKASDG9406-94-86 00:25:00See Note (05/11/15 6:25 PM)[facility]annDR[facility] LJWGEE1110-74-61 00:25:00Positive *ABN*(05/11/15 6:25 PM)[facility] IMMMNR5086-98-22 00:25:00Negative *NA*(05/11/15 6:25 PM)[facility]annDR[facility] XUCIKN1376-42-84 00:25:00Negative *NA*(05/11/15 6:25 PM)[facility]UR[facility] AND IRCDY6663-97-80 00:25:00<1[facility] STOOL 2015-05-12 00:25:001[facility] IQDHM1501-12-60 00:25:00Negative (05/11/15 6:25 PM)[facility] AXUGY3998-08-54 00:25:006.0[facility] AND GCSCZ7641-04-01 00:25:001.019[facility] AND STOOL 2015-05-12 00:25:00Negative (05/11/15 6:25 PM)[facility] STOOL 2015-05-12 00:25:00Negative (05/11/15 6:25 PM)[facility] STOOL 2015-05-12 00:25:002.0[facility] AND PNDQR1960-02-75 00:25:00Negative *NA*(05/11/15 6:25 PM)[facility] TLTDV7874-20-28 00:25:00Clear (05/11/15 6:25 PM)[facility] SOXXH0896-28-13 00:25:00Yellow *NA*(05/11/15 6:25 PM)[facility] [id number] 00:25:00Negative (05/11/15 6:25 PM)[facility] PimaifvVIERDEGAHISMJ3605-60-38 00:14:000.07[facility] HermannPARATHYROID FKTTBFB2406-13-24 00:14:001.08[facility] HermannPARATHYROID CMOXDYC7542-46-42 00:14:001.11[facility] QzvpiuwWAVTPIVZAC8961-00-56 00:14:0041 [facility] TsvtjmcFVSULLOVID1477-22-85 09:17:000.1[facility]annHEMATOLOGY 2015-05-11 09:17:000.2[facility] OriapmiFULQZGNLMU7938-03-04 14:37:0038.4[facility] MeqhyugQHIOVEESDV5461-63-21 13:52:000.2[facility] HermannCHEM FCYOV0718-66-92 02:28:000.9[facility] HermannPARATHYROID UEKNSSQ4444-39-22 02:28:001.01[facility] HermannPARATHYROID AVRDLMY3478-08-79 02:28:000.98[facility] HermannTOXICOLOGY 2015-05-10 02:28:0034.2[facility] CwgdeueXJSHOASFWG4184-11-71 02:28:0012[facility] Matty
--- OUTSIDE RECORDS SUMMARY | 2020-05-20 11:10 | XMS REPORT | Summary of Care ---
[...] TABLET BY MOUTH DAILY Quantity: 30 Refills: 11 BLAINE MERCER M.D. Start : 22-Jul-2006 Active [...] 21-Jun-2018 Active Vitamin D (Ergocalciferol) 1.25 MG (00163 UT) Oral Capsule TAKE 1 CAPSULE BY [...] Dates Details Influenza on: 01-Mar-2013 Lot #: [id number] Family History Name Dates Details Family history [...] documented Encounters Appointment; EILEEN PAIZ M.D. On: 08-Jun-2018 15 [...]
--- NOTE | 2020-05-20 12:31 | RAD REPORT ---
EXAM DESCRIPTION: RAD - Chest Single View - 05/20/2020 12:06 pm CLINICAL HISTORY: trauma fall, chest pain COMPARISON: Portable April 09, portable December 2019 TECHNIQUE: AP portable chest image was obtained 05/20/2020 12:06 pm . FINDINGS: No large mass or consolidation. The extensive airspace opacification seen on the April 09 study has mostly cleared. There does appear to be some hazy airspace opacification in the lower lakshmi g bird which could be remnant infiltrate. Pulmonary contusion or new infiltrate possible but lesser in likelihood. Oval-shaped lucency with thin dense rim in the lower left lung field could be artifac t of overlying clothing or potentially a post infectious pneumatocele Heart and vasculature are kendra l. No measurable pleural effusion and no pneumothorax. No rib fracture identified on portable imaging . No acute aortic finding. [employer] 2ND SHIFT shunt tubing overlies the right-side of the chest. IMPRESSION: No pneumothorax identified. No rib fracture seen on portable examination. Rib detail can be further assessed with dedicated films as warranted. Hazy bilateral lower lung field opacification is present. This is suspected to be remnant of the exte nsive lung disease seen on the April 09 examination. Recurrent infiltrate is possible if there are acute infectious symptoms. Pulmonary contusion is possible but unlikely. Possible postinfectious pneumatocele in the lower left lung field.
[2020-05-20] MEDS ORDERED: LORazepam 2 MG/ML VIAL ONE (13:05)
--- NOTE | 2020-05-20 14:32 | RAD REPORT ---
EXAM DESCRIPTION: CT - CTHCSPWOC - 05/20/2020 2:00 pm CLINICAL HISTORY: trauma fall head trauma COMPARISON: Head C Spine Mpr Wo Con dated 12/05/2019; CT HEAD CSPINE MPR WO CONTRAST dated 03/05/2015 TECHNIQUE: Axial 5 mm thick images of the head were obtained. Axial 2 mm thick images of the cervic al spine were obtained with sagittal and coronal reconstruction images generated and reviewed. All CT scans are performed using dose optimization technique as appropriate and may include automated exposure control or mA/KV adjustment according to patient size. FINDINGS: No intracranial hemorrhage is present. Shunt tube is in place via a right posterior tempor al approach. Positioning has not changed. Patient has multiple calcified and non calcified intracrani al mass lesions. There is extensive surrounding white matter edema. There is significant positioning differences between the current and comparative examination. The number and size of the mass lesions have not clearly changed. The extent of intracranial edema has diminished. This would account for the enlargement of the ventricular system. The enlargement is believed to be due to reduction in edema r ather than and ventricular obstructive process. No acute cortical based infarction identifiable. Ther e is extensive postsurgical change to the cranial vault. Underpneumatized mastoid air cells are clear . Complete right-side and partial left-side maxillary sinus opacification present new from December. No globe or orbit abnormality seen. Cervical bodies are normal in height. No subluxation abnormality. There is reversal of the usual cerv ical lordosis with the apex at C5-6. Anterior endplate spurring changes are present from C4-C7. No si gnificant disc space narrowing. No fracture or acute bony abnormality. Prominent facet joint hypertro phic degenerative changes are present. Bilateral bony foraminal stenosis present at C2-3 and severe f oraminal stenosis on the left at C3-4. Central canal detail is inherently limited. No paraspinal mass or hematoma. IMPRESSION: No intracranial hemorrhage is present. No acute intracranial process seen. Patient has numerous intracranial mass lesions not clearly different in number or size since December 03. The amount of cerebral edema does appear to have decreased which would account for the enlargeme nt of the ventricles back to a normal size. Cervical spine degenerative changes are present as detailed. No acute findings seen.
--- NOTE | 2020-05-20 14:37 | RAD REPORT ---
EXAM DESCRIPTION: CT - Facial Bones W/ Mpr - 05/20/2020 2:00 pm CLINICAL HISTORY: Multiple falls, head, face and neck trauma COMPARISON: CT head and cervical spine same date TECHNIQUE: Axial 2 millimeter thick images of the facial bones were obtained with sagittal and coron al reconstruction imaging. All CT scans are performed using dose optimization technique as appropriate and may include automated exposure control or mA/KV adjustment according to patient size. FINDINGS: No fracture of the mandible. Condyles are normally positioned. Extensive postsurgical gonzales ges to the skull 1 noted and detailed in separate report. No facial bone fracture is seen. There is c omplete right maxillary sinus opacification and partial opacification on the left. This does not appe ar to be related to an acute traumatic event. No acute globe or orbital content abnormality. Bilatera l frontal and periorbital contusion and scalp hematoma changes are present. IMPRESSION: No facial bone fracture identified. Patient has frontal and periorbital soft tissue cont usion and hematoma changes.
--- NOTE | 2020-05-20 14:49 | ER ---
Nurse's Notes [facility] Name: Grace Sarmiento Age: 44 yrs Sex: Female : 1975 Arrival Date: 05/20/2020 Time: 10:55 Bed 3 Private MD: Diagnosis: Other specified injuries of head Presentation: 05/20 10:56 Chief complaint: EMS states: From [facility], staff reports repeated falls over the past few days, bruising to R side of face, unknown if there was LOC, pt is on hospice for brain tumor, A\T\O x 0, pt reports pt mental status is her baseline, VSS. Care prior to arrival: None. Mechanism of Injury: Fall from standing position. Trauma event details: Injury occurred in the [facility], Injury occurred: [facility] Injury occurred: May 20, 2020. 10:56 Acuity: SONJA 4 ph 10:56 Method Of Arrival: EMS: [facility] ph 11:04 Coronavirus screen: Client denies travel out of the [place] in the last 14 days. Ebola ph Screen: No symptoms or risks identified at this time. Initial Sepsis Screen: Does the patient meet any 2 criteria? No. Patient's initial sepsis screen is negative. Does the patient have a suspected source of infection? No. Patient's initial sepsis screen is negative. Risk Assessment: Do you want to hurt yourself or someone else? Patient reports no desire to harm self or others. Onset of symptoms. 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 - Social history:: Patient/guardian denies using alcohol, street drugs, The patient lives with family, Smoking status: unknown. - Family history:: not pertinent. Screenin:04 Abuse screen: Denies threats or abuse. Denies injuries from another. Nutritional ph screening: No deficits noted. Tuberculosis screening: No symptoms or risk factors identified. Fall Risk None identified. Primary Survey: 11:06 NO uncontrolled hemorrhage observed. A: Breathing/Chest: Respiratory pattern: regular, ph Respiratory effort: spontaneous, unlabored. Circulation: Skin color: pink. Disability Alert. Exposure/Environment: There is no evidence of uncontrolled external bleeding. Obvious injury(ies) are noted at this time: bruising to R side of face and bilateral legs. 14:00 Reassessment Airway Airway Patent Breathing/Chest Respiratory pattern Regular ph Respiratory effort Spontaneous Unlabored Circulation Color [place] Temperature Warm Dry Disability Alert. Assessment: 10:59 General: Appears in no apparent distress. Behavior is calm, flat, quiet. Pain: Unable ph to use pain scale. Does not appear to understand pain scale. Neuro: Level of Consciousness is awake, Oriented to none. Cardiovascular: Capillary refill < 3 seconds in bilateral fingers Patient's skin is warm and dry. Respiratory: Airway is patent Respiratory effort is even, unlabored. Derm: Skin is fragile, is thin, Skin is pink, warm \T\ dry. Bruising that is dark purple, on right leg and left leg. Musculoskeletal: Circulation, motion, and sensation intact. Range of motion: intact in all extremities. 12:04 Reassessment: Patient appears in no apparent distress at this time. Patient and/or ph family updated on plan of care and expected duration. Pain level reassessed. Pt repeatedly attempting to get out of bed, moved to room 3 where she can be observed to prevent falls. 13:30 Reassessment: Patient appears in no apparent distress at this time. Patient and/or ph family updated on plan of care and expected duration. Pain level reassessed. 15:02 Reassessment: Patient appears in no apparent distress at this time. Patient and/or ph family updated on plan of care and expected duration. Pain level reassessed. Report called to Lilibeth Singh nurse states that they will arrange transport back to facility. 16:00 Reassessment: Patient appears in no apparent distress at this time. Patient and/or ph family updated on plan of care and expected duration. Pain level reassessed. Pt asleep w/ equal and unlabored respirations, VSS, awaiting transport back to skilled nursing. 17:00 Reassessment: Patient appears in no apparent distress at this time. No changes from ph previously documented assessment. Patient and/or family updated on plan of care and expected duration. Pain level reassessed. Vital Signs: 11:04 BP 122 / 69; Pulse 78; Resp 18; Temp 97.8; Pulse Ox 100% on R/A; ph 12:00 BP 118 / 78; Pulse 76; Resp 16; Pulse Ox 99% on R/A; ph 13:30 BP 106 / 78; Pulse 67; Resp 18; Pulse Ox 97% on R/A; ph 15:13 BP 101 / 68; Pulse 64; Resp 18; Pulse Ox 94% on R/A; ph 16:00 BP 96 / 52; Pulse 56; Resp 18; Pulse Ox 96% on R/A; ph 17:00 BP 98 / 54; Pulse 54; Resp 16; Temp 97.8; Pulse Ox 95% on R/A; ph 16:00 pt lying on side asleep ph Kolby Coma Score: 11:07 Eye Response: spontaneous(4). Verbal Response: none(1). Motor Response: localizes ph pain(5). Total: 10. 12:00 Eye Response: spontaneous(4). Verbal Response: incomprehensible(2). Motor Response: ph withdraws from pain(4). Total: 10. 13:30 Eye Response: spontaneous(4). Verbal Response: incomprehensible(2). Motor Response: ph withdraws from pain(4). Total: 10. 15:13 Eye Response: spontaneous(4). Verbal Response: incomprehensible(2). Motor Response: ph withdraws from pain(4). Total: 10. 16:00 Eye Response: spontaneous(4). Verbal Response: incomprehensible(2). Motor Response: ph withdraws from pain(4). Total: 10. 17:00 Eye Response: spontaneous(4). Verbal Response: inappropriate words(3). Motor Response: ph withdraws from pain(4). Total: 11. Trauma Score (Adult): 11:07 Eye Response: spontaneous(1); Verbal Response: none(0); Motor Response: localizes ph pain(1); Systolic BP: > 89 mm Hg(4); Respiratory Rate: 10 to 29 per min(4); Eden Score: 10; Trauma Score: 10 12:00 Eye Response: spontaneous(1); Verbal Response: incomprehensible(0); Motor Response: ph localizes pain(1); Systolic BP: > 89 mm Hg(4); Respiratory Rate: 10 to 29 per min(4); Kolby Score: 11; Trauma Score: 10 13:30 Eye Response: spontaneous(1); Verbal Response: incomprehensible(0); Motor Response: ph withdraws from pain(1); Systolic BP: > 89 mm Hg(4); Respiratory Rate: 10 to 29 per min(4); Eden Score: 10; Trauma Score: 10 15:13 Eye Response: spontaneous(1); Verbal Response: incomprehensible(0); Motor Response: ph localizes pain(1); Systolic BP: > 89 mm Hg(4); Respiratory Rate: 10 to 29 per min(4); Kolby Score: 11; Trauma Score: 10 16:00 Eye Response: spontaneous(1); Verbal Response: incomprehensible(0); Motor Response: ph withdraws from pain(1); Systolic BP: > 89 mm Hg(4); Respiratory Rate: 10 to 29 per min(4); Kolby Score: 10; Trauma Score: 10 17:00 Eye Response: spontaneous(1); Verbal Response: incomprehensible(0); Motor Response: ph withdraws from pain(1); Systolic BP: > 89 mm Hg(4); Respiratory Rate: 10 to 29 per min(4); Eden Score: 10; Trauma Score: 10 ED Course: 10:55 Patient arrived in ED. ph 10:56 Nena Little MD is Attending Physician. ma2 10:59 Triage completed. ph 11:04 Patient maintains SpO2 saturation greater than 95% on room air. Thermoregulation: warm ph blanket given to patient. 11:06 Arm band placed on Patient placed in an exam room. ph 11:45 Domi Clark, RN is Primary Nurse. ph 12:05 Chest Single View XRAY In Process Unspecified. EDMS 12:47 Missed attempt(s): 24 gauge in right wrist. Bleeding controlled, band aid applied, dh3 catheter tip intact. 14:07 CT Head C Spine In Process Unspecified. EDMS 14:07 CT Facial Bones W/O Con In Process Unspecified. EDMS 15:12 Patient has correct armband on for positive identification. Bed in low position. Call ph light in reach. Side rails up X 1. Pulse ox on. NIBP on. 15:15 No provider procedures requiring assistance completed. Patient did not have IV access ph during this emergency room visit. Administered Medications: 13:00 Drug: Ativan 2 mg Route: IM; Site: right deltoid; ph 13:27 Not Given (Other Intervention Used): Ativan 1 mg IVP once ph Intake: 11:07 PO: 0ml; Total: 0ml. ph 17:00 PO: 0ml; Total: 0ml. ph Output: 11:07 Urine: 0ml; Total: 0ml. ph 17:00 Urine: 0ml; Total: 0ml. ph Outcome: 14:48 Discharge ordered by . gabriella 18:25 Patient left the ED. 18:25 [facility]red [facility]. ph 18:25 Condition: stable 18:25 Discharge instructions given to skilled nursing. Signatures: Dispatcher [employer] EDVA Domi Clark RN RN Neha Cobb RN RN Won, Liz dh3 Nena Little MD MD ma2
--- NOTE | 2020-05-20 14:49 | EDPHYS ---
Physician Documentation [facility] Name: Grace Sarmiento Age: 44 yrs Sex: Female : 1975 Arrival Date: 05/20/2020 Time: 10:55 Bed 3 Private MD: ED Physician Nena Little HPI: 05/20 11:49 This 44 yrs old Female presents to ER via EMS with complaints of Fall Injury. ma2 11:49 Details of fall: The patient fell from seated position. Onset: The symptoms/episode ma2 began/occurred suddenly, 5 hour(s) ago. Severity of symptoms: At their worst the symptoms were moderate, in the emergency department the symptoms are unchanged. The patient has experienced similar episodes in the past. hx of brain mass on hospice here because she fell and hit her head, she is non verbal and that is her baseline d/t her brain ca . Historical: - Allergies: 11:03 Iodine; ph 11:03 PENICILLINS; ph - PMHx: 11:03 BLIND; HARD OF HEARING; Hypothyroidism; Seizures; TUMORS ON BRAIN X 7; ph - PSHx: 11:03 PEG TUBE; BRAIN TUMOR REMOVED; ph - Immunization history: Last tetanus immunization: unknown. - Social history:: Patient/guardian denies using alcohol, street drugs, The patient lives with family, Smoking status: unknown. - Family history:: not pertinent. ROS: 11:49 Constitutional: Negative for fever, chills, and weight loss. ma2 11:49 Unable to obtain ROS due to altered mental status. Exam: 11:49 Constitutional: This is a well developed, well nourished patient who is awake, alert, ma2 and in no acute distress. ENT: Nares patent. No nasal discharge, no septal abnormalities noted. Tympanic membranes are normal and external auditory canals are clear. Oropharynx with no redness, swelling, or masses, exudates, or evidence of obstruction, uvula midline. Mucous membranes moist. Neck: Trachea midline, no thyromegaly or masses palpated, and no cervical lymphadenopathy. Supple, full range of motion without nuchal rigidity, or vertebral point tenderness. No Meningismus. Chest/axilla: Normal chest wall appearance and motion. Nontender with no deformity. No lesions are appreciated. Cardiovascular: Regular rate and rhythm with a normal S1 and S2. No gallops, murmurs, or rubs. Normal PMI, no JVD. No pulse deficits. 11:49 Constitutional: The patient appears non-toxic, comatose, her gcs is at baseline 11:49 Head/face: Noted is abrasion(s), that are mild, of the right orthodox, swelling, that is moderate, of the baseline for her . 11:49 Neuro: unable to perfrom d/t baseline coma . Vital Signs: 11:04 BP 122 / 69; Pulse 78; Resp 18; Temp 97.8; Pulse Ox 100% on R/A; ph 12:00 BP 118 / 78; Pulse 76; Resp 16; Pulse Ox 99% on R/A; ph 13:30 BP 106 / 78; Pulse 67; Resp 18; Pulse Ox 97% on R/A; ph 15:13 BP 101 / 68; Pulse 64; Resp 18; Pulse Ox 94% on R/A; ph 16:00 BP 96 / 52; Pulse 56; Resp 18; Pulse Ox 96% on R/A; ph 17:00 BP 98 / 54; Pulse 54; Resp 16; Temp 97.8; Pulse Ox 95% on R/A; ph 16:00 pt lying on side asleep ph Sheldon Coma Score: 11:07 Eye Response: spontaneous(4). Verbal Response: none(1). Motor Response: localizes ph pain(5). Total: 10. 12:00 Eye Response: spontaneous(4). Verbal Response: incomprehensible(2). Motor Response: ph withdraws from pain(4). Total: 10. 13:30 Eye Response: spontaneous(4). Verbal Response: incomprehensible(2). Motor Response: ph withdraws from pain(4). Total: 10. 15:13 Eye Response: spontaneous(4). Verbal Response: incomprehensible(2). Motor Response: ph withdraws from pain(4). Total: 10. 16:00 Eye Response: spontaneous(4). Verbal Response: incomprehensible(2). Motor Response: ph withdraws from pain(4). Total: 10. 17:00 Eye Response: spontaneous(4). Verbal Response: inappropriate words(3). Motor Response: ph withdraws from pain(4). Total: 11. Trauma Score (Adult): 11:07 Eye Response: spontaneous(1); Verbal Response: none(0); Motor Response: localizes ph pain(1); Systolic BP: > 89 mm Hg(4); Respiratory Rate: 10 to 29 per min(4); Kolby Score: 10; Trauma Score: 10 12:00 Eye Response: spontaneous(1); Verbal Response: incomprehensible(0); Motor Response: ph localizes pain(1); Systolic BP: > 89 mm Hg(4); Respiratory Rate: 10 to 29 per min(4); Kolby Score: 11; Trauma Score: 10 13:30 Eye Response: spontaneous(1); Verbal Response: incomprehensible(0); Motor Response: ph withdraws from pain(1); Systolic BP: > 89 mm Hg(4); Respiratory Rate: 10 to 29 per min(4); Kolby Score: 10; Trauma Score: 10 15:13 Eye Response: spontaneous(1); Verbal Response: incomprehensible(0); Motor Response: ph localizes pain(1); Systolic BP: > 89 mm Hg(4); Respiratory Rate: 10 to 29 per min(4); Kolby Score: 11; Trauma Score: 10 16:00 Eye Response: spontaneous(1); Verbal Response: incomprehensible(0); Motor Response: ph withdraws from pain(1); Systolic BP: > 89 mm Hg(4); Respiratory Rate: 10 to 29 per min(4); Sheldon Score: 10; Trauma Score: 10 17:00 Eye Response: spontaneous(1); Verbal Response: incomprehensible(0); Motor Response: ph withdraws from pain(1); Systolic BP: > 89 mm Hg(4); Respiratory Rate: 10 to 29 per min(4); Sheldon Score: 10; Trauma Score: 10 MDM: 10:56 [facility] 11:49 Differential diagnosis: closed head injury, contusion, fracture. [facility] 14:47 Data reviewed: vital signs, nurses notes. Counseling: I had a detailed discussion with gabriella the patient and/or guardian regarding: the historical points, exam findings, and any diagnostic results supporting the discharge/admit diagnosis, the presence of at least one elevated blood pressure reading (>120/80) during this emergency department visit, the need for outpatient follow up. Response to treatment: the patient's symptoms have markedly improved after treatment. 05/20 11:13 Order name: CT Head C Spine; Complete Time: 14:40 ma2 05/20 11:13 Order name: Chest Single View XRAY; Complete Time: 14:40 ma2 05/20 11:13 Order name: CT Facial Bones W/O Con; Complete Time: 14:40 ma2 Administered Medications: 13:00 Drug: Ativan 2 mg Route: IM; Site: right deltoid; ph 13:27 Not Given (Other Intervention Used): Ativan 1 mg IVP once ph Disposition: 05/20/20 14:48 Discharged to Home. Impression: Other specified injuries of head. - Condition is Stable. - Discharge Instructions: Head Injury, Adult, [id number]. - Medication Reconciliation Form, Thank You Letter, Antibiotic Education, Prescription Opioid Use form. - Follow up: Private Physician; When: Tomorrow; Reason: If symptoms return, Continuance of care. Signatures: Dispatcher [employer] EDDomi Sargent RN RN Neha Cobb RN RN Nena Little MD MD ma2 Corrections: (The following items were deleted from the chart) 18:25 14:48 05/20/2020 14:48 Discharged to Home. Impression: Other specified injuries of hb head. Condition is Stable. Forms are Medication Reconciliation Form, Thank You Letter, Antibiotic Education, Prescription Opioid Use. Follow up: Private Physician; When: Tomorrow; Reason: If symptoms return, Continuance of care. ma2
[2020-05-20 18:32] VITALS: TEMP 97.8
[2020-05-20 18:35] VITALS: BP 101/68; O2SAT 94
== END 2020-05-20 18:25 | disposition home or self-care (01) ==
LOC: ER 10:54
DX: S00.81XA Abrasion of other part of head, initial encounter (principal); S80.12XA Contusion of left lower leg, initial encounter; S80.11XA Contusion of right lower leg, initial encounter; C71.9 Malignant neoplasm of brain, unspecified; W18.30XA Fall on same level, unspecified, initial encounter; Y93.89 Activity, other specified; Y92.129 Unspecified place in nursing home as the place of occurrence of the external cause; Z88.0 Allergy status to penicillin; Z91.048 Other nonmedicinal substance allergy status
CPT/HCPCS: 70450; 70486; 71045; 72125; 76377; 96372; 99285

== ENCOUNTER 2020-06-12 23:38 | Emergency (ER) | payer OTHER ==
--- NOTE | 2020-06-13 01:22 | ER ---
Nurse's Notes [facility] Name: Grace Sarmiento Age: 44 yrs Sex: Female : 1975 Arrival Date: 06/12/2020 Time: 23:39 Bed 4 Private MD: Diagnosis: Vitreous hemorrhage, right eye Presentation: 06/12 23:39 Chief complaint: EMS states: The half-way staff reports that the patient appears to jb4 have fallen and hit her right eye around 1930. Pt is otherwise at her baseline with the exception of her right eye being more swollen. Her room is padded with mats. 23:39 Coronavirus screen: Client denies travel out of the [place] in the last 14 days. At this jb4 time, the client does not indicate any symptoms associated with coronavirus-19. Ebola Screen: No symptoms or risks identified at this time. Mechanism of Injury: Fall. Initial Sepsis Screen: Does the patient meet any 2 criteria? No. Patient's initial sepsis screen is negative. Does the patient have a suspected source of infection? No. Patient's initial sepsis screen is negative. Risk Assessment: Do you want to hurt yourself or someone else? Patient reports no desire to harm self or others. Onset of symptoms was June 13, 2020. Transition of care: patient was received from another setting of care (long-term care facility), [facility]. 23:39 Method Of Arrival: EMS: [facility] jb4 23:39 Acuity: SONJA 2 jb4 Historical: - Allergies: 23:39 PENICILLINS; jb4 23:39 Iodine; jb4 - Home Meds: 23:39 clonazepam 0.5 mg Oral tab 1 tab 2 times per day [Active]; dexamethasone 1 mg Oral tab jb4 [Active]; hydrocortisone 5 mg Oral tab 3 tabs once daily [Active]; Lamictal 200 mg Oral tab 2 tabs 2 times per day [Active]; lamotrigine 200 mg Oral tab 2 tabs 2 times per day [Active]; levetiracetam 1,000 mg Oral tab 0.5 tab every 12 hours [Active]; levothyroxine 125 mcg tab 1 tab once daily [Active]; pregabalin 75 MG Oral 2 times per day [Active]; sertraline 100 mg Oral tab 1 tab once daily [Active]; Vitamin D2 50,000 unit Oral cap 1 cap once wkly [Active]; - PMHx: 23:39 BLIND; HARD OF HEARING; Hypothyroidism; Seizures; TUMORS ON BRAIN X 7; jb4 - PSHx: 23:39 PEG TUBE; BRAIN TUMOR REMOVED; jb4 - Immunization history:: Adult Immunizations up to date. - Social history:: Smoking status: Patient denies any tobacco usage or history of. Patient/guardian denies using alcohol, street drugs. - Family history:: not pertinent. Screenin:39 Abuse screen: Denies threats or abuse. Nutritional screening: No deficits noted. jb4 Tuberculosis screening: No symptoms or risk factors identified. Fall Risk Fall in past 12 months (25 points). Secondary diagnosis (15 points) seizures, impaired mobility, Mental Status- Overestimates/Forgets Limitations (15 pts.). Total Sheppard Fall Scale indicates High Risk Score (45 or more points). Fall prevention measures have been instituted. Side Rails Up X 2 Placed Close to Nursing Station 1:1 Attendant Assigned Frequent Obs/Assessments Occuring. Assessment: 23:39 General: Appears in no apparent distress. uncomfortable, ill, unkempt, Behavior is jb4 restless, uncooperative. Pain: Unable to use pain scale. Patient is disoriented. Neuro: Level of Consciousness is awake, confused, Oriented to none. Cardiovascular: Patient's skin is warm and dry. Respiratory: Airway is patent Respiratory effort is even, unlabored, Respiratory pattern is regular, symmetrical. GI: No signs and/or symptoms were reported involving the gastrointestinal system. : No signs and/or symptoms were reported regarding the genitourinary system. EENT: Eyes with exudate noted from iris of right eye Sclera/Cornea are reddened in outer aspect of conjuctiva of right eye, iris of right eye and inner aspect of conjuctiva of right eye. Derm: Skin Multiple wounds noted to lower extremities, torso, and back. Musculoskeletal: Range of motion: limited in right shoulder and right elbow. 06/13 00:27 Reassessment: Patient appears in no apparent distress at this time. No changes from jb4 previously documented assessment. Patient and/or family updated on plan of care and expected duration. Pain level reassessed. 01:30 Reassessment: Patient appears in no apparent distress at this time. No changes from jb4 previously documented assessment. Patient and/or family updated on plan of care and expected duration. Pain level reassessed. Pt remains at her reported baseline, A\T\Ox0. respirations are even and unlabored with no s/s of pain or distress noted. 02:32 Reassessment: Patient appears in no apparent distress at this time. No changes from jb4 previously documented assessment. Patient and/or family updated on plan of care and expected duration. Pain level reassessed. Pt transferred back to [facility] service. Report called to EDITH Coughlin. Vital Signs: 06/12 23:39 BP 140 / 72; Pulse 74; Resp 16; Temp 98.1(A); Pulse Ox 100% on R/A; Pain 0/10; jb4 06/13 00:34 BP 117 / 97; Pulse 78; Resp 16; Pulse Ox 100% on R/A; jb4 01:33 BP 122 / 90; Pulse 76; Resp 20; Pulse Ox 100% on R/A; oe Visual Acuity: 00:27 ; unable to obtain due to pt's condition. jb4 ED Course: 06/12 23:39 Patient arrived in ED. cl3 23:39 Arm band placed on right wrist. jb4 23:39 Patient has correct armband on for positive identification. Bed in low position. Call jb4 light in reach. Side rails up X 1. Pulse ox on. NIBP on. 23:42 Nena Little MD is Attending Physician. ma2 06/13 00:14 Lukasz Bishop, RN is Primary Nurse. jb4 00:22 Triage completed. jb4 00:54 CT Head Brain wo Cont In Process Unspecified. EDMS 01:21 Lito Musa MD is Referral Physician. ma2 02:27 No provider procedures requiring assistance completed. Patient did not have IV access ea during this emergency room visit. Administered Medications: No medications were administered Outcome: 01:21 Discharge ordered by . ma2 02:27 Discharged to half-way. Transfer form completed. EMS at facility for transport ea 02:27 Condition: stable 02:27 Instructed on discharge instructions. 02:32 Patient left the ED. jb4 Signatures: Dispatcher [employer] EDMS Lukasz Bishop, RN EDITH [facility] Berto Chambers Elena, RN RN Nena Freedman MD MD ma2 Kierra Agustin cl3
--- NOTE | 2020-06-13 01:22 | EDPHYS ---
Physician Documentation [facility] Name: Grace Sarmiento Age: 44 yrs Sex: Female : 1975 Arrival Date: 06/12/2020 Time: 23:39 Bed 4 Private MD: ED Physician Nena Little HPI: 06/13 00:24 This 44 yrs old Female presents to ER via EMS with complaints of Eye Injury. ma2 00:24 This 44 yrs old Female presents to ER via EMS with complaints of Eye edema ma2 Injury. 00:24 This 44 yrs old Female presents to ER via EMS with complaints of Eye edema. ma2 00:24 Onset: The symptoms/episode began/occurred gradually, 3 week(s) ago. Associated signs ma2 and symptoms: Pertinent negatives: dizziness, fever, runny nose. Severity of symptoms: At their worst the symptoms were moderate in the emergency department the symptoms are unchanged. The patient has not experienced similar symptoms in the past. patient has brain tumor with increased iop on hospice she is legally blind. sent here fro [facility] for right eye edema.. she does have left eye edema for months due to brain tumer, since i saw her last time. Historical: - Allergies: 06/12 23:39 PENICILLINS; jb4 23:39 Iodine; jb4 - Home Meds: 23:39 clonazepam 0.5 mg Oral tab 1 tab 2 times per day [Active]; dexamethasone 1 mg Oral tab jb4 [Active]; hydrocortisone 5 mg Oral tab 3 tabs once daily [Active]; Lamictal 200 mg Oral tab 2 tabs 2 times per day [Active]; lamotrigine 200 mg Oral tab 2 tabs 2 times per day [Active]; levetiracetam 1,000 mg Oral tab 0.5 tab every 12 hours [Active]; levothyroxine 125 mcg tab 1 tab once daily [Active]; pregabalin 75 MG Oral 2 times per day [Active]; sertraline 100 mg Oral tab 1 tab once daily [Active]; Vitamin D2 50,000 unit Oral cap 1 cap once wkly [Active]; - PMHx: 23:39 BLIND; HARD OF HEARING; Hypothyroidism; Seizures; TUMORS ON BRAIN X 7; jb4 - PSHx: 23:39 PEG TUBE; BRAIN TUMOR REMOVED; jb4 - Immunization history:: Adult Immunizations up to date. - Social history:: Smoking status: Patient denies any tobacco usage or history of. Patient/guardian denies using alcohol, street drugs. - Family history:: not pertinent. ROS: 06/13 00:24 Unable to obtain ROS due to obtunded state. mo2 01:22 ENT: Negative for injury, pain, and discharge. mo2 Exam: 00:24 Visual Acuity: The patient's visual acuity was not tested, because the patient was not [facility] able to be examined. 00:24 Chest/axilla: Normal chest wall appearance and motion. Nontender with no deformity. No lesions are appreciated. Cardiovascular: Regular rate and rhythm with a normal S1 and S2. No gallops, murmurs, or rubs. Normal PMI, no JVD. No pulse deficits. Respiratory: Lungs have equal breath sounds bilaterally, clear to auscultation and percussion. No rales, rhonchi or wheezes noted. No increased work of breathing, no retractions or nasal flaring. Abdomen/GI: Soft, non-tender, with normal bowel sounds. No distension or tympany. No guarding or rebound. No evidence of tenderness throughout. 00:24 Head/face: Exam is negative for abrasion(s), contusion, erythema, laceration(s), Noted is deformity, erythema, swelling. 00:24 Neuro: unable to test as patient is non communicative at baseline . Vital Signs: 06/12 23:39 BP 140 / 72; Pulse 74; Resp 16; Temp 98.1(A); Pulse Ox 100% on R/A; Pain 0/10; jb4 06/13 00:34 BP 117 / 97; Pulse 78; Resp 16; Pulse Ox 100% on R/A; jb4 01:33 BP 122 / 90; Pulse 76; Resp 20; Pulse Ox 100% on R/A; oe Visual Acuity: 00:27 ; unable to obtain due to pt's condition. jb4 MDM: 06/12 23:43 Patient medically screened. ma2 06/13 00:24 Differential diagnosis: Corneal abrasion of Corneal ulcer of Foreign body in [facility] 01:20 Data reviewed: vital signs, nurses notes. Counseling: I had a detailed discussion with [facility] the patient and/or guardian regarding: the historical points, exam findings, and any diagnostic results supporting the discharge/admit diagnosis, the presence of at least one elevated blood pressure reading (>120/80) during this emergency department visit, the need for outpatient follow up. Response to treatment: There is no appreciated change of the patient's symptoms at this time. 06/12 23:57 Order name: CT Head Brain wo Cont ma2 Administered Medications: No medications were administered Disposition: 06/13/20 01:21 Discharged to Home. Impression: Vitreous hemorrhage, right eye. - Condition is Stable. - Medication Reconciliation Form, Thank You Letter, Antibiotic Education, Prescription Opioid Use form. - Follow up: Lito Musa MD; When: Tomorrow; Reason: Continuance of care. Signatures: Dispatcher [employer] EDLukasz Grant RN RN jb4 Nena Little MD MD ma2 Corrections: (The following items were deleted from the chart) 02:32 01:21 06/13/2020 01:21 Discharged to Home. Impression: Vitreous hemorrhage, right eye. jb4 Condition is Stable. Forms are Medication Reconciliation Form, Thank You Letter, Antibiotic Education, Prescription Opioid Use. Follow up: Lito Musa; When: Tomorrow; Reason: Continuance of care. ma2
[2020-06-13 02:48] VITALS: TEMP 98.1; O2SAT 100
[2020-06-13 02:50] VITALS: BP 122/90
--- NOTE | 2020-06-13 10:55 | RAD REPORT ---
EXAM DESCRIPTION: CT - Head Brain Wo Cont - 06/13/2020 6:53 am CLINICAL HISTORY: The patient is 44 years old and is Female; CONFUSED TECHNIQUE: Axial computed tomography images of the head/brain without intravenous contrast. Sagitt al and coronal reformatted images were created and reviewed. This CT exam was performed using one o r more of the following dose reduction techniques: automated exposure control, adjustment of the mA and/or kV according to patient size, and/or use of iterative reconstruction technique. COMPARISON: CT of the head May 20, 2020 FINDINGS: BRAIN: Multiple large heterogeneous both calcified and noncalcified masses throughout th e brain parenchyma are present in the overall unchanged from prior exam. Areas of encephalomalacia an d likely vasogenic edema are present and grossly similar to prior exam. No intracranial hemorrhage is noted. VENTRICLES: Mild dilatation of the ventricles, left greater than right is noted and unchanged fr om prior exam. BONES/JOINTS: Extensive postsurgical change of the calvarium is noted. SOFT TISSUES: Unremarkable. SINUSES: Right maxillary sinus mucoperiosteal thickening is present. MASTOID AIR CELLS: Trace mastoid effusions with underlying pneumatization noted. ORBITS: Hyperattenuating focus within the right lobe is present measuring approximately 1.8 x 1. 3 cm. This is new from prior exam. The lens appears to be placed The left globe is small in compari son to slightly irregular, similar to prior exam. TUBES, LINES AND DEVICES: A right posterior parietal approach ventriculostomy catheter is presen t, the position is unchanged from prior exam. IMPRESSION: 1. Interval development of large area of high attenuation within the right globe sugge sting vitreous hematoma/hemorrhage. 2. No significant change in the multiple calcified and noncalcified masses throughout with associat ed persistent edema. 3. Mild ventriculomegaly with shunt in place, grossly stable in appearance. Electronically signed by: Marisol Herman MD 06/13/2020 1:09 AM ECHOCARDIOGRAPHY TECH Due to temporary technical issues with the PACS/Fluency reporting system, reports are being signed by the in house radiologist without review as a courtesy to ensure prompt reporting. The interpreting r adiologist is fully responsible for the content of the report.
--- OUTSIDE RECORDS SUMMARY | 2020-06-13 12:27 | XMS REPORT | Continuity of Care Document ---
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 Active 02/28/[address] D32.0 Active 01/11/[address] WORSENING BRAIN TUMOR Active 12/05/[address] Discharge Diagnosis: 07/05/19 07/08/2015 [facility] Vomiting, unspecified [address] [place] [address] Discharge Diagnosis: 07/05/19 07/08/2015 [facility] Vomiting in adult [address] BRAIN SHUNT NOT Active 07/05/19 [facility] [place] DRAINING [address] [place] [address] MENINGIOMA CA Active 06/27/19 [facility] as [address] [place] [address] PAIN Active 05/09/[address] G40.901 Active 05/09/[address] G40.219 Active 05/09/[address] Gastroesophageal Resolved Problem 04/21/2020 [facility] reflux disease Medic al (disorder) Center Blindness - both eyes Resolved Problem 04/21/2020 [facility] (disorder) [facility] Blood clot Resolved Problem 07/29/2015 [facility] (morphologic Medical abnormality) [place] Intracranial tumor Resolved Problem 04/21/2020 [facility] (disorder) [facility] Cyst of breast Resolved Problem 04/21/2020 [facility] [place] (disorder) [facility] Center Epilepsy (disorder) Resolved Problem 04/21/2020 [facility] Hearing loss Resolved Problem 04/21/2020 [facility] as (finding) [facility] Center Hypothyroidism Resolved Problem 04/21/2020 [facility] [place] (disorder) [facility] Center Cyst of ovary Resolved Problem 04/21/2020 [facility] [place] (disorder) [facility] Center Seizure (finding) Resolved Problem 04/21/2020 [facility] Blindness AND/OR Active Problem 04/21/2020 [facility] vision impairment Ut dical level (disorder) Lin[facility] ter Mood disorder Active Problem 04/21/2020 [facility] [place] (disorder) [facility] 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/2020 [facility] behavior of meninges Medical (disorder) [place] 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 [facility] (disorder) [facility] Seizure disorder Active Problem 04/21/2020 [facility] (disorder) [facility] EPILEPSY, UNSP, NOT Active [facility] INTRACTABLE, WITH [facility] LOCAL-REL SYMPTC EPI Active [facility] W CMPLX PART SEIZ, M edical Center NEOPLASM OF Active [facility] UNSPECIFIED BEHAVIOR Medical OF BRAI [place] BENIGN NEOPLASM OF Active [facility] CEREBRAL MENINGES Me dical Center CEREBRAL EDEMA Active [facility] SEVERE SEPSIS WITH Active [facility] SEPTIC SHOCK [facility] Medications Medication Details Route Status Patient Ordering [...] haloperidol 5 0.5 mg, IV, Q2H, Active [facility] [place] mg/mL injectable PRN Other -See 2019 Medical solution Comment, PRN Center delirium, X 30 day, # 30 mL, 0 Refill(s) glycopyrrolate 0.4 mg, IV, Q6H, Active [facility] 0.2 mg/mL # 30 mL, 0 2020 Medical intravenous Refill(s) Center solution Acetaminophen 650 mg = 2 tab, Active [place] 325 MG Oral GT, Q6H, # 90 2020 Medica l Tablet tab, 0 Refill(s) Center bisacodyl 10 mg 10 mg = 1 supp, Active [facility] rectal MO, Daily, PRN 2019 Medical suppository Constipation, # Cent er 90 supp, 2 Refill(s) ocular lubricant 1 appl, BOTH Active [facility] ointment EYES, Q2H, PRN 2020 Medical [...] Center Refill(s) Morphine Notes: (Same No Longer [place] as:MORPhine Active 2019 Medical Sulfate) Center glycopyrronium Notes: (Same as: No Longer [place] Robinul) Active 2020 Medical Center Acetaminophen Notes: Do not No Longer [place] exceed 4 gm/day. Active 2019 Medical (Same as: Center Tylenol) Morphine Notes: (Same Inactive [facility] as:MORPhine 2019 Medical Sulfate) Center Bisacodyl Notes: (Same As: No Longer [place] Dulcolax, 2019 [facility] Bisco-Lax) Center Haldol Notes: (Same as: [place] Longer [place] Haldol) Active [address] [place] [address] Ativan Notes: (Same as: No Longer [place] Ativan) Active [address] [place] [address] Levetiracetam Notes: Same as No Longer H [place] 1000 MG Oral Keppra Active [address] [place] [address] Tablet Center Morphine Notes: (Same Inactive [facility] as:MORPhine 2019 Medical Sulfate) Center POLYETHYLENE Notes: Dissolve No Longer H [place] GLYCOL 3350 in 8 oz of water 2019 Med ical or juice. (Same Center as: Miralax) Lorazepam Notes: (Same as: No Longer [facility] Ativan) Active [address] [place] [address] Center Ondansetron Notes: (Same as: No Longer H [place] Zofran) Active [facility] MEDICATION WASTE Center Product Size: 4 mg Product Wasted: ___ mg Acetaminophen Notes: Max [place] acetaminophen = Active 2020 Medical 4000 mg/day (4 Center gm/day). (Same as: Tylenol) ocular lubricant Notes: (Same as: No Longer 04/03 [place] Lacri-Lube, Active 2019 [facility] Puralube, [place] Duratears Naturale, Artificial Tears, and Tears Again ) Dexamethasone Notes: Give with No Longer [place] food. (Same As: 2019 [facility] Decadron) [place] chlorhexidine Notes: (Same As: No Longer [place] gluconate 1.2 Peridex) Active 2020 Medical MG/ML Mouthwash [place] Calcium Chloride 1,000 mL, 1,000 Inactive [place] 0.0014 MEQ/ML / ml/hr, Infuse 2019 Ut dical Potassium Over: 1 hr, [place] Chloride 0.004 Route: IV, MEQ/ML / Sodium 1,000, Drug Chloride 0.103 form: INJ, ONCE, MEQ/ML / Sodium Priority: STAT, Lactate 0.028 Dosing Weight 70 MEQ/ML kg, Start date: Injectable 04/15/20 7:50:00 Solution MANAGER ANIMAL, Stop date: 04/15/20 7:50:00 MANAGER ANIMAL, 0 Vancomycin 2001 mg: infuse No Longer [place] over 2.5 hours 2019 Medical For adult Center patients only: Round to nearest 250 mg per Medical Staff approval MEDICATION WASTE Product Size: 1000 mg Product Wasted: ___ mg Versed Notes: (Same as: Inactive [facility] as Versed) 2019 Medical MEDICATION WASTE Center Product Size: 2 mg Product Wasted: ___ mg Calcium Chloride 500 mL, 500 Inactive [place] 0.0014 MEQ/ML / ml/hr, Infuse 2019 Ut dical Potassium Over: 1 hr, [place] Chloride 0.004 Route: IV, 500, MEQ/ML / Sodium Drug form: INJ, Chloride 0.103 ONCE, Priority: MEQ/ML / Sodium STAT, Dosing Lactate 0.028 Weight 70 kg, MEQ/ML Start date: Injectable 04/15/20 0:38:00 Solution MANAGER ANIMAL, Stop date: 04/15/20 0:38:00 MANAGER ANIMAL, 0 ocular lubricant Notes: (Same as: No Longer 04/03 [place] Lacri-Lube, Active 2019 [facility] Puralube, [place] Duratears Naturale, Artificial Tears, and Tears Again ) Versed Notes: (Same as: Inactive Parth as Versed) 2019 Medical MEDICATION WASTE Center Product Size: 2 mg Product Wasted: ___ mg chlorhexidine Notes: (Same As: No Longer [place] gluconate 1.2 Peridex) Active 2019 [facility] MG/ML Mouthwash Center Midazolam Notes: (Same as: No Longer [place] Versed) Active 2019 Medical Center Fentanyl 1,000 microgram, [place] Longer [place] 20 mL, Rate: Active 2019 Medical Titrate, Start Center Dose: 50 microgram/hr, Titration: 25 microgram/hour every 15 minutes, Goal(s): RASS -1, Max Dose: 300 microgram/hr, Route: IV, Dosing Weight 70 kg, Total Volume: 20, Start date: 04/14/20 21:29:00 MANAGER ANIMAL, Durat... meropenem Notes: Same [place] Merrem Active [facility] Rocuronium 50 mg, Route: Inactive Parth as IV, ONCE, Dosing 2019 Medical Weight 70, kg, Center Start date: 04/14/20 20:44:00 MANAGER ANIMAL, Stop date: 04/14/20 20:44:00 MANAGER ANIMAL Fentanyl 50 microgram, Inactive [place] Route: IV, ONCE, 2019 Medical Dosing Weight Center 70, kg, Start date: 04/14/20 20:44:00 MANAGER ANIMAL, Stop date: 04/14/20 20:44:00 MANAGER ANIMAL Etomidate 10 mg, Route: Inactive Pankaj alfaro IV, ONCE, Dosing 2019 Medical Weight 70, kg, Center Start date: 04/14/20 20:22:00 MANAGER ANIMAL, Stop date: 04/14/20 20:22:00 MANAGER ANIMAL Fentanyl 100 microgram, Inactive Pankaj s Route: IV, ONCE, 2019 Medical Dosing Weight Center 70, kg, Start date: 04/14/20 20:22:00 MANAGER ANIMAL, Stop date: 04/14/20 20:22:00 MANAGER ANIMAL Midazolam 2 mg, Route: Inactive [place] IVP, ONCE, 2019 Medical Dosing Weight Center 70, kg, Start date: 04/14/20 20:22:00 MANAGER ANIMAL, Stop date: 04/14/20 20:22:00 MANAGER ANIMAL Dopamine Notes: (Same as: No Longer [place] Intropin) Active 2019 Medical Administer by Center either central venous catheter or peripherally-ins erted central catheter (PICC) line. Final conc = 3.2 mg/ml. Premix solution. Vancomycin 2001 mg: infuse Inactive [place] over 2.[address] [place] [address] Norepinephrine Notes: Same as: No Longer [place] Levophed. Active 2019 Medical Administer by Center either central venous catheter or peripherally-ins erted central catheter (PICC) line. Racepinephrine Notes: Inactive [place] 22.5 MG/ML (racepinephrine 2019 Medic al Inhalant *2.25% inh 0.5ml Center Solution SOLN) (Same as:S2) Dexamethasone Notes: Give with No Longer [place] food. Active 2019 [facility] Dexamethasone Notes: Inactive [place] Concentration: 2019 [facility] 4mg/ml Center lamotrigine 200 Notes: (Same No Longer H [place] MG Oral Tablet as:LaMICtal) Active 2019 [facility] Potassium Notes: (Same as: Inactive [place] Chloride 1.33 Potassium 2019 [facility] MEQ/ML Oral Chloride) Center Solution Potassium Notes: [...] Patient’s with feeding tube less than 14 Kisw[place]ili (Dobhoff, J-tube etc) and pediatric and patients. Cleocin HCl Notes: Inactive [place] (clindamycin 150 2019 Medical mg/1 ml (600 Center mg/4 ml VL) INJ) (Same As: Cleocin) Clindamycin 300 mg, Route: Inactive [place] IVPB, ABXQ8H, 2019 Medical Dosing Weight Center 70, kg, Start date: 04/14/20 5:00:00 MANAGER ANIMAL, Duration: 7 day, Stop date: 04/20/20 21:00:00 MANAGER ANIMAL, ABX Indication: Bacteremia Potassium Notes: (Same as: Inactive [place] Chloride 1.33 Potassium 2020 [facility] MEQ/ML Oral Chloride) [place] Solution Keppra 500 mg, Route: Inactive [place] PO, ONCE, Dosing [facility] Weight 70, kg, Center Start date: 04/14/20 2:32:00 MANAGER ANIMAL, Stop date: 04/14/20 2:32:00 MANAGER ANIMAL Ativan Notes: (Same as: [place] Ativan) Active [address] [place] [address] Levetiracetam Notes: (Same No Longer [facility] 1000 MG Oral as:Keppra) Active [address] [place] [address] Tablet [place] Albuterol 0.833 Notes: (Same as: No Longer 04/14 [facility] MG/ML / Duoneb) Active [address] [place] [address] Ipratropium [place] 0.167 MG/ML Inhalant Solution [DuoNeb] Sodium Chloride Notes: SEE RT No Longer [facility] 3% inhalation DOCUMENTATION Active [address] [place] [address] mesha solution (Same as: [place] Hypertonic Saline 3%, Inhalation) Ativan Notes: (Same as: [place] Longer [place] Ativan) Active [address] [place] [address] heparin sodium, Notes: porcine No Longer [facility] porcine [address] Active [address] [place] [address] UNT/ML Center Injectable Solution ondansetron Route: IV, Drug Inactive [place] (IHSAN) form: INJ, ONCE, 2019 Medical Stop date: [place] 04/13/20 11:04:00 MANAGER ANIMAL sugammadex Route: IV, Drug Inactive [facility] [place] (VANDANAS) form: SOLN, [facility] ONCE, Stop date: [place] 04/13/20 11:04:00 MANAGER ANIMAL Hydromorphone Notes: Same as Inactive [place] Dilaudid [address] [place] [address] Flumazenil Notes: (Same as: Inactive [place] Romazicon) [address] [place] [address] Naloxone Notes: Same as Inactive Partha s Narcan [address] [place] [address] Ondansetron Notes: (Same as: Inactive [facility] Zofran) [facility] MEDICATION WASTE Center Product Size: 4 mg Product Wasted: ___ mg phenylephrine Route: IV, Drug Inactive [place] (ANES) form: INJ, ONCE, 2019 Medical Stop date: [place] 04/13/20 10:58:00 MANAGER ANIMAL midazolam (ANES) Route: IV, Drug Inactive [place] form: SOLN, 2019 Medical ONCE, Stop date: [place] 04/13/20 10:53:00 MANAGER ANIMAL propofol (ANES) Route: IV, Drug Inactive [facility] form: INJ, ONCE, 2019 Medical Stop date: [place] 04/13/20 10:53:00 MANAGER ANIMAL rocuronium Route: IV, Drug Inactive [place] (ANES) form: INJ, ONCE, 2019 Medical Stop date: [place] 04/13/20 10:53:00 MANAGER ANIMAL fentaNYL (ANES) Route: IV, Drug Inactive [facility] form: INJ, ONCE, 2019 Medical Stop date: [place] 04/13/20 10:53:00 MANAGER ANIMAL Lactated Ringers Route: IV, Total Inactive 04/13 [facility] Injection IV Volume: 1,000, 2019 Medi mesha ([facility]) 1000 mL Start date: Cente r 04/13/20 10:04:00 MANAGER ANIMAL, Stop date: 04/13/20 11:04:00 MANAGER ANIMAL Cefazolin Notes: (Same as No Longer [place] Ancef) Active [address] [place] [address] PHOS-NaK Notes: (Same as: No Longer [facility]) Each Active [facility] 1.5 gm pkt has Center 250mg phosphorous. Mix w/2.5oz water and stir. Aspirin 81 MG Notes: Take with No Longer [place] Enteric Coated food. Active 2019 [facility] Tablet Center Dexamethasone Notes: No Longer [place] Concentration: Active [facility] 4mg/ml Center Ceftriaxone Notes: (Same As: Inactive [facility] Rocephin). Use [facility] with 100 mL NS Center and infuse over 30 min MEDICATION WASTE Product Size: 1000 mg Product Wasted: ___ mg Aspirin 81 MG Notes: Do not Inactive [facility] Enteric Coated crush or chew. 2019 Me dical Tablet (Same As: [place] Ecotrin) Plavix 75 mg, Route: No Longer [place] PO, Drug form: Active 2019 Medical TAB, Daily, Center Dosing Weight 70, kg, Start date: 04/12/20 9:00:00 MANAGER ANIMAL, Duration: 30 day, Stop date: 05/11/20 9:00:00 MANAGER ANIMAL sodium phosphate Notes: Infuse Inactive [place] over 4 hour. Do [facility] not infuse Center phosphorous concurrently in the same line as TPN or IVF that contains calcium. For double lumen central lines, phosphorous may be infused in a separate lumen from TPN. atorvastatin Notes: (Same as: No Longer [facility] Lipitor) Active [address] [place] [address] Famotidine Notes: (Same as: No Longer [facility] Pepcid) Active [address] [place] [address] Calcium Chloride 500 mL, 500 Inactive [place] 0.0014 MEQ/ML / ml/hr, Infuse 2019 Ut dical Potassium Over: 1 hr, Center Chloride 0.004 Route: IV, 500, MEQ/ML / Sodium Drug form: INJ, Chloride 0.103 ONCE, Dosing MEQ/ML / Sodium Weight 70 kg, Lactate 0.028 Start date: MEQ/ML 04/11/20 Injectable 13:47:00 MANAGER ANIMAL, Solution Stop date: 04/11/20 13:47:00 MANAGER ANIMAL, 0 Calcium Chloride 250 mL, 250 Inactive [place] 0.0014 MEQ/ML / ml/hr, Infuse 2019 Ut dical Potassium Over: 1 hr, Center Chloride 0.004 Route: IV, 250, MEQ/ML / Sodium Drug form: INJ, Chloride 0.103 ONCE, Priority: MEQ/ML / Sodium STAT, Dosing Lactate 0.028 Weight 70 kg, MEQ/ML Start date: Injectable 04/11/20 Solution 13:11:00 MANAGER ANIMAL, Stop date: 04/11/20 13:11:00 MANAGER ANIMAL, 0 Heparin 60 Route: IVP, PRN, No Longer [facility] unit/kg [place] 3,500 unit, 3.5 Active 2019 Ut dical (Heparin Dosing mL, Drug form: C enter Weight) INJ, PRN, Heparin Protocol, Start date: 04/11/20 11:02:00 MANAGER ANIMAL Stop date: 05/11/20 11:01:00 MANAGER ANIMAL, 30 day, 0 Heparin 30 Route: IVP, PRN, No Longer [facility] unit/kg [place] 1,700 unit, 1.[address] [place] [address] dical (Heparin Dosing mL, Drug form: C enter Weight) INJ, PRN, Heparin Protocol, Start date: 04/11/20 11:02:00 MANAGER ANIMAL Stop date: 05/11/20 11:01:00 MANAGER ANIMAL, 30 day, 0 heparin additive Notes: Total No Longer [place] 25,000 unit [12 Concentration = Active 2019 Medical unit/kg/hr] + 50 unit/ ml Center Premix Diluent Total volume = Sodium Chloride 500 ml Send Med 0.45% 500 mL Request 2 hours prior to next bag Aspirin Notes: Take with Inactive [place] as food. 2019 Medical [place] PHOS-NaK 1 packet, Route: Inactive [place] PO, Dosing 2019 Medical Weight 70, kg, Center Q8H, Start date: 04/11/20 8:00:00 MANAGER ANIMAL, Duration: 2 day, Stop date: 04/13/20 0:00:00 MANAGER ANIMAL Fentanyl Notes: (Same as: No Longer [place] Sublimaze) Active 2019 Medical Preservative Center free. Calcium Chloride 250 mL, 250 Inactive [place] 0.0014 MEQ/ML / ml/hr, Infuse 2019 Ut dical Potassium Over: 1 hr, [place] Chloride 0.004 Route: IV, 250, MEQ/ML / Sodium Drug form: INJ, Chloride 0.103 ONCE, Priority: MEQ/ML / Sodium STAT, Dosing Lactate 0.028 Weight 70 kg, MEQ/ML Start date: Injectable 04/11/20 7:52:00 Solution MANAGER ANIMAL, Stop date: 04/11/20 7:52:00 MANAGER ANIMAL, 0 Calcium Chloride 250 mL, 250 Inactive [place] 0.0014 MEQ/ML / ml/hr, Infuse 2019 Ut dical Potassium Over: 1 hr, [place] Chloride 0.004 Route: IV, ONCE, MEQ/ML / Sodium Priority: STAT, Chloride 0.103 Dosing Weight 70 MEQ/ML / Sodium kg, Start date: Lactate 0.028 04/11/20 7:51:00 MEQ/ML MANAGER ANIMAL, Stop date: Injectable 04/11/20 7:51:00 Solution MANAGER ANIMAL Fentanyl 25 microgram, Inactive [place] Route: IV, Q6H, 2019 Medical Dosing Weight Center 70, kg, PRN Agitation, Start date: 04/11/20 7:43:00 MANAGER ANIMAL, Duration: 30 day, Stop date: 05/11/20 7:42:00 MANAGER ANIMAL sodium phosphate Notes: Infuse Inactive [place] over 4 hour. Do 2020 Medical not infuse Center phosphorous concurrently in the same line as TPN or IVF that contains calcium. For double lumen central lines, phosphorous may be infused in a separate lumen from TPN. Seroquel Notes: (Same as: No Longer [place] SEROquel) Active [address] [place] [address] Center Vancomycin 1.2 gm, Route: Inactive [place] IV, Q12H, Dosing 2019 Medical Weight 79.545, Center kg, Start date: 04/10/20 21:00:00 MANAGER ANIMAL, Duration: 7 day, Stop date: 04/17/20 9:00:00 MANAGER ANIMAL, ABX Indication: Pneumonia Vancomycin 2001 mg: infuse No Longer [place] over 2.[address] [place] [address] Famotidine Notes: (Same as: No Longer [place] Pepcid) Can be Active 2019 [facility] dilute in 5-10cc Center NS IVP: Slow IV push over at least 2 minutes. Calcium Chloride 1,000 mL, 1000 Inactive [place] 0.0014 MEQ/ML / ml/hr, Infuse 2019 Ut dical Potassium Over: 1 hr, Center Chloride 0.004 Route: IV, MEQ/ML / Sodium 1,000, Drug Chloride 0.103 form: INJ, ONCE, MEQ/ML / Sodium Priority: STAT, Lactate 0.028 Dosing Weight 70 MEQ/ML kg, Start date: Injectable 04/10/20 Solution 16:55:00 MANAGER ANIMAL, Stop date: 04/10/20 16:55:00 MANAGER ANIMAL, 0 Calcium Chloride 500 mL, 500 Inactive [place] 0.0014 MEQ/ML / ml/hr, Infuse 2019 Ut dical Potassium Over: 1 hr, Center Chloride 0.004 Route: IV, 500, MEQ/ML / Sodium Drug form: INJ, Chloride 0.103 ONCE, Priority: MEQ/ML / Sodium STAT, Dosing Lactate 0.028 Weight 70 kg, MEQ/ML Start date: Injectable 04/10/20 Solution 16:28:00 MANAGER ANIMAL, Stop date: 04/10/20 16:28:00 MANAGER ANIMAL, 0 Insulin regular Notes: (Same as: No Longer 04/10 [place] Humulin R) Roll Active [address] [facility] hands gently; Do not shake vigorously. [...] ocular lubricant Notes: (Same as: No Longer [place] Lacri-Lube, 2019 [facility] Puralube, [place] Duratears Naturale, Artificial Tears, and Tears Again ) Lovenox Notes: (Same as: No Longer [place] Lovenox) Active 2019 [facility] Dextrose 50% in 12.5 gm, 25 mL, No Longer [place] Water IV Route: IVP, Drug Active 2019 Medica l Form: INJ, Center Dosing Weight 70, kg, PRN, PRN Blood Glucose Results, Start date: 04/10/20 10:45:00 MANAGER ANIMAL, Duration: 30 day, Stop date: 05/10/20 10:44:00 MANAGER ANIMAL, 0 Glucagon 1 mg, Route: IM, No Longer [place] Drug form: Active 2019 Medical PDR/INJ, PRN, Center Dosing Weight 70, kg, PRN Blood Glucose Results, Start date: 04/10/20 10:45:00 MANAGER ANIMAL, Duration: 30 day, Stop date: 05/10/20 10:44:00 MANAGER ANIMAL, 0 Insulin Lispro Notes: (Same as: Inactive [place] Humalog) Roll in 2019 Medical palms of hands Center gently; Do not shake vigorously. WASTE: F/P - Black; E - Municipal Trash Bin Stable for 28 days at room temperature. Expires in days from Da te Calcium Chloride 250 mL, 250 Inactive [place] 0.0014 MEQ/ML / ml/hr, Infuse 2020 Ut dical Potassium Over: 1 hr, [place] Chloride 0.004 Route: IV, 250, MEQ/ML / Sodium Drug form: INJ, Chloride 0.103 ONCE, Priority: MEQ/ML / Sodium STAT, Dosing Lactate 0.028 Weight 70 kg, MEQ/ML Start date: Injectable 04/10/20 Solution 10:41:00 MANAGER ANIMAL, Stop date: 04/10/20 10:41:00 MANAGER ANIMAL, 0 Potassium Notes: (Same as: Inactive [facility] [place] Chloride 1.[address] [place] [address] MEQ/ML Oral Chloride) [place] Solution Docusate Notes: (Same as: No Longer [facility] [place] Colace) [address] POLYETHYLENE Notes: Dissolve No Longer 04/10/ [facility] GLYCOL 3350 in 8 oz of water Active [facility] ical or juice. (Same Center as: Miralax) sennosides, FPC Notes: (Same as: No Longer 04/10 [facility] Senokot) [address] Saline Flush Notes: (Same as: No Longer [facility] 0.9% BD Posiflush) [address] chlorhexidine Notes: (Same As: No Longer [facility] gluconate 1.2 Peridex) Active [facility] MG/ML Mouthwash [place] Vancomycin 2001 mg: infuse Inactive [facility] over 2.[address] [place] [address] chlorhexidine Notes: (Same As: No Longer [facility] gluconate 1.2 Peridex) Active [facility] MG/ML Mouthwash [place] Nystatin 100 Notes: (Same No Longer [facility] [place] UNT/MG Topical as:Mycostatin, Active 2019 Ut dical Powder Nilstat) For Center external use only. Acetaminophen Notes: Do not No Longer [place] exceed 4 gm/day. Active 2020 Medical (Same as: [place] Tylenol) Saline Flush Notes: (Same as: No Longer [facility] 0.9% BD Posiflush) [address] Dexamethasone Notes: No Longer [place] Concentration: Active 2020 Medical 4mg/ml [place] Metronidazole 500 mg, Route: Inactive [facility] IVPB, ONCE, 2019 Medical Dosing Weight Center 79.545, kg, Priority: STAT, Start date: 04/10/20 4:00:00 MANAGER ANIMAL, Stop date: 04/10/20 4:00:00 MANAGER ANIMAL, ABX Indication: Pneumonia cefepime 2 gm, Route: Inactive [facility] IVP, ONCE, 2019 Medical Dosing Weight Center 79.545, kg, Priority: STAT, Start date: 04/10/20 3:59:00 MANAGER ANIMAL, Stop date: 04/10/20 3:59:00 MANAGER ANIMAL, ABX Indication: Pneumonia Vancomycin 2001 mg: infuse Inactive [facility] over 2.[address] [place] [address] Famotidine Notes: (Same as: Inactive [facility] Pepcid) Can be 2020 Medical dilute in 5-10 Center NS IVP: Slow IV push over at least 2 minutes. Dexamethasone 10 mg, Route: Inactive [facility] IVP, ONCE, 2019 Medical Dosing Weight Center 79.545, kg, Priority: STAT, Start date: 04/10/20 2:51:00 MANAGER ANIMAL, Stop date: 04/10/20 2:51:00 MANAGER ANIMAL Midazolam Notes: (Same as: Inactive [place] Versed) 2019 [facility] Isolyte S PH-7.4 1,000 mL, Infuse Inactive 04/10 [facility] (Bolus) IV Over: 1 hr, 2019 Medical Route: IV, Drug Center form: INJ, ONCE, Priority: STAT, Dosing Weight 79.545 kg, Start date: 04/10/20 1:22:00 MANAGER ANIMAL, Stop date: 04/10/20 1:22:00 MANAGER ANIMAL, [place] Dose Fentanyl 1,000 microgram, No Longer [place] 20 mL, Rate: Active [facility] Titrate, Start Center Dose: 50 microgram/hr, Titration: 25 microgram/hour every 15 minutes, Goal(s): hr, Max Dose: 300 microgram/hr, Route: IV, Dosing Weight 79.545 kg, Total Volume: 20, Start date: 04/10/20 0:49:00 MANAGER ANIMAL, Duratio... Isolyte S PH-7.4 1,000 mL, Infuse Inactive 04/10 [facility] ([place]) IV Over: 1 hr, 2019 Medical Route: IV, Drug Center form: INJ, ONCE, Priority: STAT, Dosing Weight 79.545 kg, Start date: 04/10/20 0:49:00 MANAGER ANIMAL, Stop date: 04/10/20 0:49:00 MANAGER ANIMAL, [place] Dose Norepinephrine Notes: Same as: No Longer [place] Levophed. 2019 Medical Administer by Center either central venous catheter or peripherally-ins erted central catheter (PICC) line. Saline Flush Notes: (Same as: No Longer [place] 0.9% BD Posiflush) [address] Flumazenil 0.2 mg, Route: No Longer [place] IVP, PRN, Dosing Active [facility] Weight 79.545, Center kg, PRN Benzodiazepine Reversal, Initial dose, Start date: 04/06/20 18:38:00 MANAGER ANIMAL, Duration: 30 day, Stop date: 05/06/20 18:37:00 MANAGER ANIMAL Naloxone 0.4 mg, Route: No Longer [place] as IVP, Q2MIN, Active 2019 Medical Dosing Weight Center 79.545, kg, PRN Narcotic Reversal, Start date: 04/06/20 18:38:00 MANAGER ANIMAL, Duration: 8 doses or times, Stop date: Limited # of times Ondansetron 4 mg, Route: [place] IVP, ONCE, Active 2019 Medical Dosing Weight Center 79.545, kg, PRN Nausea & Vomiting, Start date: 04/06/20 18:38:00 MANAGER ANIMAL Sodium Chloride 1,000 mL, Rate: No Longer [place] 0.9% IV 1,000 mL 50 ml/hr, Infuse Active [address] [place] [address] over: 20 hr, Center Route: IV, Dosing Weight 79.545 kg, Total Volume: 1,000, Priority: Routine, Start date: 04/06/20 15:43:00 MANAGER ANIMAL, Duration: 30 day, Stop date: 05/06/20 15:42:00 MANAGER ANIMAL, 1.96, m2 Acetaminophen 325 mg, Route: No Longer H [place] PO, Drug form: [facility] 2019 Medical TAB, Q4H, Dosing Center Weight 79.545, kg, PRN Pain Score 1-3, Start date: 04/06/20 15:43:00 MANAGER ANIMAL, Duration: 30 day, Stop date: 05/06/20 15:42:00 MANAGER ANIMAL Acetaminophen 1 tab, Route: No Longer [place] 325 MG / PO, Drug Form: Active 2019 Medical Hydrocodone TAB, Dosing Center Bitartrate 5 MG Weight 79.545, Oral Tablet kg, Q4H, PRN Pain Score 4-6, Start date: 04/06/20 15:43:00 MANAGER ANIMAL, Duration: 30 day, Stop date: 05/06/20 15:42:00 MANAGER ANIMAL Bupivacaine 30 mL, Route: No Longer [place] Hydrochloride MISC, Dosing Active 2020 Medic al 2.5 MG/ML / Weight 79.545, Cente r Epinephrine kg, ONCALL, 0.005 MG/ML Start date: Injectable 04/06/20 6:00:00 Solution MANAGER ANIMAL, Duration: 30 day, Stop date: 05/06/20 5:59:00 MANAGER ANIMAL Bacitracin 0.5 1 appl, Route: No Longer [place] UNT/MG / TOP, ONCALL, Active 2019 Medical Polymyxin B 10 Drug form: OINT, [place] UNT/MG Topical Priority: Ointment Routine, Start [Polysporin] date: 04/06/20 6:00:00 MANAGER ANIMAL, Duration: 1 doses or times Fentanyl 50 microgram, [place] Route: IVP, Active 2019 Medical ONCALL, Dosing Center Weight 79.545, kg, Priority: Routine, Start date: 04/06/20 6:00:00 MANAGER ANIMAL, Duration: 1 doses or times Sodium Chloride 1,000 mL, Rate: No Longer [place] 0.9% IV 1,000 mL 50 ml/hr, Infuse Active 2019 [facility] over: 20 hr, Center Route: IV, Dosing Weight 79.545 kg, Total Volume: 1,000, Priority: Routine, Start date: 04/06/20 5:49:00 MANAGER ANIMAL, Duration: 30 day, Stop date: 05/06/20 5:48:00 MANAGER ANIMAL, 1.96, m2, 0 Dexamethasone 6 mg, Route: Inactive [place] IVP, Drug form: 2019 Medical INJ, ONCE, Center Dosing Weight 79.545, kg, Start date: 04/06/20 5:49:00 MANAGER ANIMAL, Stop date: 04/06/20 5:49:00 MANAGER ANIMAL Famotidine Notes: (Same as: Inactive [place] Pepcid) Can be 2020 Medical dilute in 5-10cc Center NS IVP: Slow IV push over at least 2 minutes. Ondansetron Notes: (Same as: No Longer [facility] Zofran) 2019 Medical MEDICATION WASTE Center Product Size: 4 mg Product Wasted: ___ mg Promethazine 25 mg, Route: No Longer [place] IVPB, Q6H, Active 2019 Medical Dosing Weight Center 79.545, kg, PRN Nausea & Vomiting, Start date: 04/06/20 5:49:00 MANAGER ANIMAL, Duration: 30 day, Stop date: 05/06/20 5:48:00 MANAGER ANIMAL Fentanyl 25 microgram, No Longer [place] s Route: IVP, Q1H, Active 2019 Medical Dosing Weight Center 79.545, kg, PRN Pain Score 7-10, Priority: Routine, Start date: 04/06/20 5:49:00 MANAGER ANIMAL, Duration: 1 doses or times, Stop date: Limited # of times Hydralazine 20 mg, Route: No Longer [place] IV, Q4H, Dosing Active 2019 Medical Weight 79.545, Center kg, PRN Hypertension, Start date: 04/06/20 5:49:00 MANAGER ANIMAL, Duration: 30 day, Stop date: 05/06/20 5:48:00 MANAGER ANIMAL Labetalol 10 mg, Route: No Longer [place] as IVP, Drug form: Active 2019 Medical INJ, [id number], Center Dosing Weight 79.545, kg, PRN Hypertension, Start date: 04/06/20 5:49:00 MANAGER ANIMAL, Duration: 3 doses or times, Stop date: Limited # of times Dexamethasone 4 mg, Route: PO, Inactive [place] Q6H, Dosing 2019 Medical Weight 63.636, Center kg, Start date: 12/09/19 18:00:00 CDT, Duration: 30 day, Stop date: 01/08/20 12:00:00 CDT OLANZapine 5 mg 5 mg = 1 tab, Active [facility] oral tablet, PO, BID, PRN 2020 Medica l disintegrating Agitation, # 60 C enter tab, 0 Refill(s), Pharmacy: [facility] #[id number], 167.64, cm, 12/05/19 22:02:00 CDT, Height, 63.636, kg, 12/05/19 22:02:00 CDT, Weight Dexamethasone 4 4 mg = 1 tab, Active [facility] MG Oral Tablet PO, BID, X 30 2019 Med ical day, # 60 tab, 0 Center Refill(s), [id number], 167.64, cm, 12/05/19 22:02:00 CDT, Height, 63.636, kg, 12/05/19 22:02:00 CDT, Weight Dexamethasone Notes: Inactive [facility] Concentration: 2019 Medical 4mg/ml Center Dexamethasone Notes: Give with Inactive [facility] food. (Same As: [address] [place] [address] Decadron) Center famotidine Notes: (Same as: No Longer [facility] Pepcid) Active [address] [place] [address] olanzapine Notes: (Same as: No Longer [facility] ZyPREXA Zydis Active [address] [place] [address] ODT-Oral Center Disintegrating Tablet) Clonazepam Notes: (Same As: No Longer [facility] KlonoPIN) [address] [facility] Center Group 3:Reproductive risk Hazardous Drug -- Refer to safe handling procedure PPE Matrix Ativan Notes: (Same as: Inactive [place] as Ativan) [address] [place] [address] Ativan Notes: (Same as: Inactive [place] as Ativan) [address] [place] [address] Cortef Notes: (Same as: [place] Cortef) Active [address] [place] [address] levothyroxine 125 microgram = Active [facility] 125 mcg (0.125 1 tab, PO, Daily [facility] mg) oral tablet Center Hydrocortisone Notes: (Same as: No Longer [facility] Cortef) Active [address] [place] [address] Keppra 500 mg, Route: Inactive [facility] IVPB, Q12H, 2020 Medical Dosing Weight Center 63.636, kg, Priority: Routine, Start date: 12/06/19 9:00:00 CDT, Duration: 30 day, Stop date: 01/04/20 21:00:00 CDT Clonazepam Notes: (Same As: Inactive [facility] KlonoPIN) [address] [place] [address] Hazardous Drug [place] Group 3:Reproductive risk Hazardous Drug -- Refer to safe handling procedure PPE Matrix lamotrigine 200 Notes: (Same No Longer [place] MG Oral Tablet as:LaMICtal) Active [address] [place] [address] Levetiracetam Notes: (Same No Longer [place] 1000 MG Oral as:Keppra) [address] Thyroxine Notes: Take 1 No Longer [facility] as hour before or 2 Active [facility] hours after [place] meal; Enteral feeds may interefere with the absorption of this medication. (Same as:Levothroid) pregabalin Notes: (Same as: No Longer [facility] Lyrica) [address] Sertraline Notes: (Same as: No Longer [facility] Zoloft) [address] Famotidine Notes: (Same as: No Longer [facility] Pepcid) Can be Active [facility] dilute in 5-10cc Center NS IVP: Slow IV push over at least 2 minutes. Dexamethasone Notes: No Longer [facility] Concentration: Active [address] [place] [address] 4mg/ml [place] levothyroxine 0 Refill(s) Inactive [place] 125 mcg (0.125 [facility] mg) oral tablet [place] hydrocortisone 5 TK 3 TS PO QAM No Longer [facility] mg oral tablet AND 1 T IN THE Active [address] [place] [address] dical AFTERNOON PLUS Center EXTRA IN TIMES OF STRESS Ergocalciferol 50,000 IntlUnit Active [facility] [address] UNT Oral = 1 cap, PO, 2019 Medi mesha Capsule qWeek [place] sertraline 100 100 mg = 1 tab, Active [place] mg oral tablet PO, Daily [address] [place] [address] Levetiracetam 1,000 mg = 1 [place] 1000 MG Oral tab, PO, BID [facility] Medica l Tablet [place] lamotrigine 200 400 mg = 2 tab, Active [place] MG Oral Tablet PO, BID [address] [place] [address] clonazePAM 0.5 0.5 mg = 1 tab, No Longer [place] mg oral tablet PO, BID Active 2019 [facility] pregabalin 75 mg 75 mg = 1 [...] in 25 gm, 50 mL, No Longer [place] Water IV Route: IVP, Drug Active 2019 [...] mg, Route: Inactive [place] IVP, ONCE, [facility] Dosing Weight Center 63.636, kg, Priority: STAT, Start date: 12/06/19 4:58:00 CDT, Stop date: 12/06/19 4:58:00 CDT Keppra 1,000 mg, Route: Inactive [place] as IVPB, ONCE, [facility] Dosing Weight Center 63.636, kg, Priority: [...] PEG, Daily, 0 2015 Med ical Refill(s) [place] levothyroxine 125 microgram = Active [place] 125 mcg (0.125 1 tab, PEG, 2016 Medic al mg) oral tablet Daily, 0 Center Refill(s) Levetiracetam 1,000 mg = 10 Active [place] 100 MG/ML Oral mL, PEG, Q12H, 0 2015 Medical Solution Refill(s) [place] [Keppra] lamotrigine 200 400 mg = 2 tab, Active [place] MG Oral Tablet PEG, BID, 0 2015 Medic al Refill(s) [place] Clonazepam 0.5 0.5 mg = 1 tab, Active H [place] MG Oral Tablet PEG, BID, 0 2015 Medic al Refill(s) [place] pantoprazole 40 40 mg = 1 pkt, Active H [place] mg oral granule PEG, Daily, 0 2015 Me dical Refill(s) [place] gabapentin 50 300 mg = 6 mL, Active [place] MG/ML Oral PEG, Q8H, 0 2015 Medical Solution Refill(s) [place] Imodium A-D Notes: (Same as: Inactive [facility] Imodium) 2015 [facility] Menthol 0.0044 Notes: (Same as: Inactive [place] MG/MG / Zinc Calmoseptine) 2015 Medic al Oxide 0.2 MG/MG [place] Topical Ointment [Calmoseptine Ointment] potassium Notes: (Same as: Inactive [place] chloride Potassium 2015 [facility] Chloride) [place] Protonix 40 mg, 1 pkt, No Longer [...] as: No Longer [place] Synthroid) Active 2015 [facility] Center Keppra Notes: Same as [place] Longer [place] Keppra Mix with Active 2015 Medical 100 mL NS, LR or Center D5W MEDICATION WASTE Product Size: 500 mg Product Wasted: ___ mg Dexamethasone Notes: No Longer [place] Concentration: Active 2015 Medical 4mg/ml Center Protonix Notes: (Same as: No Longer [place] Protonix) Active 2015 [facility] Dexamethasone Notes: Give with Inactive [place] food. (Same As: 2015 Medical Decadron) Center Morphine Notes: (Same No Longer [place] as:MORPhine Active 2015 Medical Sulfate) Center Clindamycin [...] 13:41:00 Iohexol Notes: (Same No Longer [place] as:Omnipaque Active 2015 Medical 350). Center Dexamethasone Notes: Give with No Longer [place] food. Active 2015 [facility] clindamycin Notes: (Same As: No Longer H [place] Cleocin) Active 2015 [facility] Clindamycin Notes: (Same As: Inactive [place] Cleocin) 2016 [facility] docusate Notes: (Same as: No Longer [place] Colace) Active 2015 [facility] docusate Notes: (Same as: [place] Colace) 2016 [facility] Dexamethasone Notes: Give with No Longer [place] food. Active 2015 [facility] Docusate Sodium Notes: (Same as: No Longer 05/18 [place] 100 MG Oral Colace) (Do Not Active 2015 Medi mesha Capsule [Colace] Crush) Center Dulcolax Notes: (Same As: No Longer [place] Laxative Dulcolax, Active 2015 Medical Bisco-Lax) Center senna 8.6 mg Notes: (Same as: No Longer [place] oral tablet Senokot) Active 2016 Medical Center Acetaminophen Notes: (Same as: No Longer [place] 325 MG / [place] 325/5) Do Active 2015 Medica l Hydrocodone not exceed Center Bitartrate 5 MG 4gm/day of Oral Tablet acetaminophen. [[place] 5/325] Multihance 529 Notes: Same as No [...] [place] Longer [place] Pepcid) Active 2015 [facility] Dexamethasone Notes: [place]er [place] MEDICATION WASTE Active 2015 Medical Product Center Size: 10 mg Product Wasted: ___ mg Docusate Notes: (Same as: No Longer [place] Colace) Active 2015 [facility] Hydrocortisone Notes: (Same as: No Longer [place] Cortef) Active 2015 [facility] Magnesium 2 gm, 50 mL, Inactive [...] as: No Longer [place] Cortef) Active 2015 [facility] Multihance 529 Notes: Same as No Longer [place] mg/mL Multihance Active 2015 [facility] Hydrocortisone Notes: (Same as: Inactive [place] Cortef) 2016 [facility] Ativan Notes: (Same as: Inactive [place] as Ativan) 2015 [facility] normal saline 1,000 mL, Rate: No Longer [place] 0.9% IV 1,000 mL 75 ml/hr, Infuse Active 2015 Medical over: 13.3 hr, Center Route: IV, Dosing Weight 76.818 kg, Total Volume: 1,000, Start date: 05/11/15 16:24:00, Duration: 30 day, Stop date: 06/10/15 16:23:00 Ativan Notes: (Same as: Inactive [place] as Ativan) 2015 [facility] Versed 2 mg, Route: IM, Inactive [place] as ONCE, Dosing 2016 Medical Weight 76.818, Center kg, Start date: 05/11/15 11:27:00, Stop date: 05/11/15 11:27:00 Versed Notes: (Same as: [place] Longer [place] Versed) Active 2016 [facility] lamotrigine 200 400 mg = 2 tab, No Longer [place] MG Oral Tablet PO, BID Active 2016 [facility] lamotrigine 200 Notes: (Same No Longer [place] MG Oral Tablet as:LaMICtal) Active 2016 [facility] Thyroxine Notes: Take 1 No Longer [place] as hour before or 2 Active 2015 [facility] hours after [place] meal; Enteral feeds may interefere with the absorption of this medication. (Same as:Levothroid) Sertraline Notes: (Same as: No Longer [place] Zoloft) Active 2016 [facility] Levetiracetam Notes: (Same No Longer [place] 1000 MG Oral as:Keppra) Active 2016 [facility] Clonazepam Notes: (Same As: No Longer [place] KlonoPIN) Active 2016 [facility] pneumococcal Notes: (Same as: Inactive [facility] capsular Pneumovax 23) 2016 [facility] polysaccharide Refrigerate Cente r type 1 vaccine / pneumococcal capsular polysaccharide type 10A vaccine / pneumococcal capsular polysaccharide type 11A vaccine / pneumococcal capsular polysaccharide type 12F vaccine / pneumococcal capsular polysacchar heparin sodium, Notes: porcine No Longer [facility] porcine 2500 heparin Active 2015 [facility] Injectable Solution Versed Notes: (Same as: [place] Longer [place] Versed) Active 2015 Medical MEDICATION WASTE Center Product Size: 2 mg Product Wasted: _1__ mg Saline Flush Notes: (Same as: No Longer [place] 0.9% BD Posiflush) Active 2016 [facility] Acetaminophen 1,000 mg = 2 No Longer [place] 500 MG Oral tab, PO, Q4H, Active 2015 Medica l Tablet [Tylenol] PRN Pain, # 120 Center tab, 0 Refill(s) Saline Flush Notes: (Same as: No Longer [facility] [place] 0.9% BD Posiflush) Active 2015 [facility] lamotrigine 200 See No Longer Parth [...] ource type Reported penicillins Assertion Drug Active [facility] seafood Assertion Drug Active [place] as allergy [facility] Center iodine Assertion Drug Active [place] as topical allergy [facility] Immunizations Immunization Date Given Site Status Last Comments Source Updated pneumococcal 05/11/2015 Right completed Iyamu Parth as 23-valent vaccine Deltoid [facility] Results Order Name Results Value Reference Date Interpretation Comments Delfina rce Range URINE AND UA Color Yellow Yellow 04/16 [facility] STOOL *NA* /2019 [facility] (04/16/20 7:51 AM) Cente r URINE AND UA Turbidity Clear Clear 04/16 [facility] (04/16/20 7:51 AM) /2019 [facility] URINE AND UA Spec Grav 1.015 <=1.030 04/16 [facility] STOOL /[address] [place] [address] URINE AND UA pH 7.0 5.0 - 8.0 04/16 [facility] STOOL /[address] [place] [address] URINE AND UA Protein Negative Negative 04/16 [facility] STOOL mg/dL mg/dL [address] [place] [address] URINE AND UA Glucose Negative Negative 04/16 [facility] STOOL mg/dL mg/dL [address] [place] [address] URINE AND UA Ketones Negative Negative 04/16 [facility] [place] STOOL mg/dL mg/dL [address] [place] [address] URINE AND UA Bili Negative Negative 04/16 [facility] STOOL *NA* /2019 Medical (04/16/20 7:51 AM) Cente r URINE AND UA Blood Negative Negative 04/16 [facility] (04/16/20 7:51 AM) [facility] URINE AND UA 0.2 0.1 - 1.0 04/16 [facility] Urobilinogen /[address] [place] [address] URINE AND UA Nitrite Negative Negative 04/16 [facility] (04/16/20 7:51 AM) [facility] URINE AND UA Leuk Est Negative Negative 04/16 [facility] (04/16/20 7:51 AM) [facility] URINE AND UA Sq Epi Occasional Few /LPF 04/16 [facility] STOOL /LPF /[address] [place] [address] URINE AND UA WBC 2 0 - 5 04/[address] URINE AND UA RBC 2 0 - 2 04/16 [facility] /[address] [place] [address] URINE AND UA Bacteria Occasional None Seen 04/16 [place] STOOL /HPF /HPF /[address] [place] [address] URINE AND UA Mucus Few /LPF None Seen 04/16 [facility] STOOL /LPF /[address] [place] [address] URINE AND UA Amorph Occasional None Seen 04/16 [facility] Denise /HPF /HPF /[address] [place] [address] URINE AND Micro? Performed 04/16 [facility] (04/16/20 7:51 AM) [facility] URINE CHEM U Osmolality 455 300 - 800 04/16 [place] as [address] URINE CHEM U Sodium 135 04/[address] CHEM PANEL Phosphorus 3.7 2.5 - 4.5 04/[address] CHEM PANEL Magnesium Lvl 2.3 1.8 - 2.4 04/16 [facility] [place] [address] CHEM PANEL Glucose Lvl 140 70 - 99 04/[address] CHEM PANEL BUN 13 7 - 22 04/[address] CHEM PANEL Creatinine 0.52 0.50 - 04/16 [place] Lvl 1.[address] [place] [address] CHEM PANEL Sodium Lvl 142 135 - 145 04/[address] CHEM PANEL Potassium Lvl 4.4 3.5 - 5.1 04/16 [facility] [address] CHEM PANEL Chloride Lvl 107 95 - 109 04/16 [facility] CHEM PANEL CO2 32 24 - 32 04/16 [facility]2019 [facility] CHEM PANEL Calcium Lvl 8.5 8.5 - 10.5 04/16 [facility] as [facility] CHEM PANEL AGAP 7.4 10.0 - 04/16 [facility] 20.0 [facility] CHEM PANEL eGFR 115 04/16 Result Comment: [...] HEMATOLOGY WBC 8.7 3.7 - 10.4 04/[address] HEMATOLOGY RBC 3.54 4.20 - 04/16 [facility] 5.40 [facility] HEMATOLOGY Hgb 9.9 12.0 - 04/16 [facility] 16.0 [facility] HEMATOLOGY Hct 29.9 36.0 - 04/16 [facility] 48.0 [facility] HEMATOLOGY MCV 84.5 80.0 - 04/16 [facility] 98.0 [facility] HEMATOLOGY MCH 28.0 27.0 - 04/16 [facility] 31.0 [facility] HEMATOLOGY MCHC 33.2 32.0 - 04/16 [facility] 36.0 [facility] HEMATOLOGY RDW 16.5 11.5 - 12 [facility] 14.5 [facility] HEMATOLOGY Platelet 254 133 - 450 04/[address] HEMATOLOGY MPV 7.3 7.4 - 10.4 04/[address] HEMATOLOGY Neutrophils # 7.6 1.5 - 8.1 12/14 [facility] [address] HEMATOLOGY Lymphocytes # 0.8 1.0 - 5.5 04/16 [facility] [address] HEMATOLOGY Monocytes # 0.1 0.0 - 0.8 04/[place] [address] HEMATOLOGY Segs 80.0 45.0 - 04/16 [facility] 75.0 /[address] [place] [address] HEMATOLOGY Bands 7.0 0.0 - 11.0 04/[address] HEMATOLOGY Lymphocytes 9.0 20.0 - 04/16 [facility] 40.0 /[address] [place] [address] HEMATOLOGY Monocytes 1.0 2.0 - 12.0 04/[address] HEMATOLOGY Metamyelocyte 1.0 0.0 - 1.0 04/[address] HEMATOLOGY Myelocytes 2.0 <=0.0 % 04/[address] HEMATOLOGY Atypical 0.0 <=0.0 % 04/16 [facility] [address] PARATHYROID Ca Ion WB 1.06 1.05 - 04/16 [facility] PROFILE 1.25 /[address] [place] [address] PARATHYROID Ca Norm WB 1.09 1.05 - 04/16 [facility] PROFILE 1.25 /[address] [place] [address] TOXICOLOGY Vanco Tr 18.7 04/[address] TOXICOLOGY Vanco Tr TND 2100 04/[address] Gram Stain Gram Stain 04/15 [facility] Report Performed Medical By: Center [facility] [place] [facility] Culture: Few Yeast 04/15 [facility] Respiratory Normal Respiratory Kate Isolated Medical w/Gram Stain [place] CARDIAC Troponin-I 0.17 0.00 - 04/15 [facility] ENZYMES 0.40 [facility] CARDIAC Troponin-T 0.119 0.000 - 04/15 Result [facility] ENZYMES 0.100 Comment: Medical Critical Center Result(s) called to Faby Guzman at 04/15/2020 09:38 by . Read back OK. CHEM PANEL Procalcitonin 0.86 0.00 - 04/15 [place] L[place] 0.10 [facility] CHEM PANEL Phosphorus 3.6 2.5 - 4.5 04/[address] CHEM PANEL Magnesium Lvl 2.0 1.8 - 2.4 04/15 [facility] [address] CHEM PANEL Glucose Lvl 136 70 - 99 04/15 [facility] CHEM PANEL BUN 14 7 - 22 04/15 [facility]2019 [facility] CHEM PANEL Creatinine 0.53 0.50 - 04/15 [place] Lvl 1.40 [facility] CHEM PANEL Sodium Lvl 140 135 - 145 04/15 [facility]2019 [facility] CHEM PANEL Potassium Lvl 4.5 3.5 - 5.1 04/15 [facility] CHEM PANEL Chloride Lvl 108 95 - 109 04/15 [facility] CHEM PANEL CO2 28 24 - 32 04/15 [facility]2019 [facility] CHEM PANEL Calcium Lvl 8.3 8.5 - 10.5 04/15 [facility] as [facility] CHEM PANEL AGAP 8.5 10.0 - 04/15 [facility] 20.0 [facility] CHEM PANEL eGFR 114 04/15 Result Comment: [...] BMI. HEMATOLOGY Segs 80.6 45.0 - 04/15 [facility] 75.0 [facility] HEMATOLOGY Lymphocytes 12.9 20.0 - 04/15 [facility] 40.0 [facility] HEMATOLOGY Monocytes 6.4 2.0 - 12.0 04/[address] HEMATOLOGY Basophils 0.1 0.0 - 1.0 04/[address] HEMATOLOGY Neutrophils # 5.5 1.5 - 8.1 04/15 [facility] Center /[address] [place] [address] HEMATOLOGY Lymphocytes # 0.9 1.0 - 5.[address] HEMATOLOGY Monocytes # 0.4 0.0 - 0.[address] HEMATOLOGY WBC 6.8 3.7 - 10.4 12/ [address] HEMATOLOGY RBC 3.56 4.20 - 12 [facility] 5.40 /2019 [facility] HEMATOLOGY Hgb 9.9 12.0 - 12/13 [facility] 16.0 /2019 [facility] HEMATOLOGY Hct 30.2 36.0 - 12/13 [facility] 48.0 /2019 [facility] HEMATOLOGY MCV 84.8 80.0 - 12/ [facility] 98.0 /2019 [facility] HEMATOLOGY MCH 27.9 27.0 - 12 [facility] 31.0 /2019 [facility] HEMATOLOGY MCHC 32.9 32.0 - 12/ [facility] 36.0 /2019 [facility] HEMATOLOGY RDW 16.6 11.5 - 12 [facility] 14.5 /2019 [facility] HEMATOLOGY Platelet 209 133 - [address] HEMATOLOGY MPV 7.2 7.4 - 10.4 04/[address] IMMUNOLOGY C-REACTIVE 55.9 <=2.9 mg/L 04/[address] PARATHYROID Ca Ion WB 1.09 1.05 - 12 [facility] PROFILE 1.25 /[address] [place] [address] PARATHYROID Ca Norm WB 1.10 1.05 - 04/15 [facility] PROFILE 1.25 /2019 [facility] CHEM PANEL Glucose Lvl 119 70 - 99 04/[address] CHEM PANEL BUN 13 7 - 22 04/[address] CHEM PANEL Creatinine 0.62 0.50 - 12 [place] Lvl 1.40 [facility] CHEM PANEL Sodium Lvl 139 135 - 145 12/ [address] CHEM PANEL Potassium Lvl 5.3 3.5 - 5.1 04/[address] CHEM PANEL Chloride Lvl 109 95 - [address] CHEM PANEL CO2 28 24 - [address] CHEM PANEL AGAP 7.3 10.0 - 12 [facility] 20.0 /2020 [facility] CHEM PANEL Calcium Lvl 8.2 8.5 - 10.5 04/15 [facility] as [facility] CHEM PANEL eGFR 109 04/15 Result Comment: [...] Magnesium Lvl 2.3 1.8 - 2.4 04/15 [facility] CHEM PANEL Phosphorus 3.1 2.5 - 4.5 04/[address] CHEM PANEL Lactic Acid 1.9 0.5 - 2.2 04/14 [facility] [address] Culture: No Growth 04/[address] CHEM PANEL Glucose Lvl 113 70 - 99 04/[address] CHEM PANEL BUN 12 7 - 22 04/[address] CHEM PANEL Creatinine 1.08 0.50 - 04/14 [facility] Lvl 1.40 [facility] CHEM PANEL Sodium Lvl 141 135 - 145 04/[address] CHEM PANEL Potassium Lvl 3.0 3.5 - 5.1 04/14 Result [facility] Comment: Medical Critical Center Result(s) called to Meseret Schmitt at 04/14/2020 03:38 by AA. Read back OK. CHEM PANEL Chloride Lvl 105 95 - 109 04/14 [facility] s [address] CHEM PANEL CO2 22 24 - 32 04/[address] CHEM PANEL AGAP 17.0 10.0 - 04/14 [facility] 20.0 [facility] CHEM PANEL Calcium Lvl 8.5 8.5 - 10.[address] CHEM PANEL eGFR 62 12 Result [place] [id number] Comment: The Medical eGFR is Center calculated [...] Magnesium Lvl 2.4 1.8 - 2.4 04/[address] CHEM PANEL Phosphorus 2.8 2.5 - 4.5 04/[address] HEMATOLOGY Segs 69.7 45.0 - 04/14 [facility] 75.0 2019 [facility] HEMATOLOGY Lymphocytes 25.6 20.0 - 04/14 [facility] 40.0 2019 [facility] HEMATOLOGY Monocytes 4.5 2.0 - 12.0 / [address] HEMATOLOGY Eosinophils 0.1 0.0 - 4.0 04/[address] HEMATOLOGY Basophils 0.1 0.0 - 1.0 / [address] HEMATOLOGY Neutrophils # 5.1 1.5 - 8.1 / [address] HEMATOLOGY Lymphocytes # 1.9 1.0 - 5.5 / [address] HEMATOLOGY Monocytes # 0.3 0.0 - 0.8 / [address] HEMATOLOGY WBC 7.3 3.7 - 10.4 12/ [address] HEMATOLOGY RBC 3.94 4.20 - 12 [facility] 5.40 2019 [facility] HEMATOLOGY Hgb 11.1 12.0 - 12/12 [place] 16.0 /2019 [facility] HEMATOLOGY Hct 33.8 36.0 - 12/12 [place] 48.0 [facility] HEMATOLOGY MCV 86.0 80.0 - 12/12 [place] 98.0 /2019 [facility] HEMATOLOGY MCH 28.3 27.0 - 12/12 [place] 31.0 [facility] HEMATOLOGY MCHC 32.9 32.0 - 12/12 [place] 36.0 [facility] HEMATOLOGY RDW 16.4 11.5 - 12/12 [place] 14.5 /2019 [facility] HEMATOLOGY Platelet 229 133 - 450 12/12 /[address] [place] [address] HEMATOLOGY MPV 7.4 7.4 - 10.4 12/ [address] PARATHYROID Ca Ion WB 1.09 1.05 - 12/12 [place] PROFILE 1.25 [facility] PARATHYROID Ca Norm WB 1.01 1.05 - 04/14 [facility] PROFILE 1.25 [facility] HEMATOLOGY PT 14.3 12.0 - 12/11 [place] 14.7 [facility] HEMATOLOGY INR 1.11 0.85 - 1211 [place] 1.17 [facility] HEMATOLOGY PTT 59.6 22.9 - 1211 [place] 35.8 [facility] HEMATOLOGY RBC Morph Normal Normal 12 [facility] (04/13/20 4:37 AM) /2019 [facility] HEMATOLOGY Plt Morph Normal Normal 12 [facility] (04/13/20 4:37 AM) /2019 [facility] HEMATOLOGY Segs 84.9 45.0 - 1211 [place] 75.0 [facility] HEMATOLOGY Lymphocytes 10.0 20.0 - 12/11 [place] 40.0 [facility] HEMATOLOGY Monocytes 5.0 2.0 - 12.[address] [place] [address] HEMATOLOGY Basophils 0.1 0.0 - 1.0 12/ /[address] [place] [address] HEMATOLOGY Neutrophils # 7.0 1.5 - 8.1 [place] [address] [place] [address] HEMATOLOGY Lymphocytes # 0.8 1.0 - 5.5 12 [place] /[address] [place] [address] HEMATOLOGY Monocytes # 0.4 0.0 - 0.8 [place]2019 [facility] HEMATOLOGY WBC 8.2 3.7 - 10.4 12/ [address] HEMATOLOGY RBC 3.66 4.20 - 12/11 [place] 5.40 /2019 [facility] HEMATOLOGY Hgb 10.2 12.0 - 12/11 [facility] 16.0 /2020 [facility] HEMATOLOGY Hct 30.5 36.0 - 12/11 [facility] 48.0 /2019 [facility] HEMATOLOGY MCV 83.5 80.0 - 12/11 [facility] 98.0 /2019 [facility] HEMATOLOGY MCH 27.8 27.0 - 12/11 [facility] 31.0 /2019 [facility] HEMATOLOGY MCHC 33.3 32.0 - 12/ [facility] 36.0 /2019 [facility] HEMATOLOGY RDW 16.6 11.5 - 12/ [facility] 14.5 /2019 [facility] HEMATOLOGY Platelet 192 133 - [address] HEMATOLOGY MPV 7.4 7.4 - 10.[address] PARATHYROID Ca Ion WB 0.97 1.05 - 04/13 [facility] PROFILE 1.[address] [place] [address] PARATHYROID Ca Norm WB 1.03 1.05 - 04/13 [facility] PROFILE 1.25 [facility] HEMATOLOGY PTT 81.4 22.9 - 12 [facility] 35.8 /2020 [facility] HEMATOLOGY PTT 52.6 22.9 - 1210 [facility] 35.[address] CHEM PANEL Lactic Acid 1.2 0.5 - 2.2 04/[address] CHEM PANEL Total Protein 5.3 6.4 - 8.4 04/[address] CHEM PANEL Albumin Lvl 2.2 3.5 - 5.0 04/[address] CHEM PANEL ALT 46 0 - 65 04/[address] CHEM PANEL AST 95 0 - 37 04/[address] CHEM PANEL Alk Phos 54 39 - 136 04/[address] CHEM PANEL Bili Total 0.3 0.2 - 1.3 04/[address] CHEM PANEL Bili Direct 0.1 0.0 - 0.3 04/[address] CHEM PANEL Bili Indirect 0.2 0.0 - 1.0 04/[address] CHEM PANEL Globulin 3.1 2.7 - 4.2 04/[address] [place] [address] CHEM PANEL A/G Ratio 0.7 0.7 - 1.6 04/12 [facility]2019 [facility] CHEM PANEL Procalcitonin 3.97 0.00 - 04/12 Result [facility] Lvl 0.10 Comment: Medical Critical Center Result(s) called to Cesar Arturo at 04/12/2020 04:40 by AH. Read back OK. HEMATOLOGY Bands 4.0 0.0 - 11.0 04/12 [facility] HEMATOLOGY Atypical 0.0 <=0.0 % 04/12 [facility] TOXICOLOGY Vanco Lvl 11.6 04/12 [facility]2019 [facility] CARDIAC Troponin-I 3.02 0.00 - 04/12 Result [facility] ENZYMES 0.40 Comment: Medical Critical Center Result(s) called to Cesar [place] at 04/11/2020 19:44 by FNS. Read back OK. CHEM PANEL Lactic Acid 2.1 0.5 - 2.2 04/12 [facility] s Lvl /2019 [facility] CARDIAC Troponin-I 4.52 0.00 - 04/11 Result [facility] ENZYMES 0.40 Comment: Medical Critical Center Result(s) called to Mon. C. at 04/11/2020 14:15 by BLJarad. Read back OK. HEMATOLOGY PT 16.5 12.0 - 04/11 [facility] 14.7 [facility] HEMATOLOGY INR 1.32 0.85 - 04/11 [place] 1.17 [facility] HEMATOLOGY Bands 16.0 0.0 - 11.0 04/11 [facility] HEMATOLOGY Atypical 0.0 <=0.0 % 04/11 [facility] IMMUNOLOGY Aspergillus <0.50 04/10 [facility] galactomannan [facility] IMMUNOLOGY Aspergillus NOT 04/10 Result [facility] galactomannan DETECTED Comment: [facility] RANGE: <0.50, NOT DETECTED

A negative result does not exclude invasive
aspergillosis . Follow-up testing may be indicated<br/ >for high-risk patients.<br/ >Test Performed at:
[facility]
[address] [place] [address] Bernard Martinez MD BACTERIAL - Source Strep Urine 04/10 [facility] SEROLOGY *NA* /2019 Medical (04/10/20 10:56 AM) Cente r BACTERIAL - Strep Negative Negative 04/10 [facility] SEROLOGY pneumoniae Ag (04/10/20 10:56 AM) /[address] [place] [address] BACTERIAL - MRSA by PCR Negative 04/10 [facility] SEROLOGY (04/10/20 8:40 AM) /2019 [facility] CARDIAC BNP 1275 <=100 04/10 [facility] ENZYMES pg/mL [address] CHEM PANEL Total Protein 5.4 6.4 - 8.4 04/[address] CHEM PANEL Albumin Lvl 2.6 3.5 - 5.0 04/[address] CHEM PANEL ALT 33 0 - 65 04/[address] CHEM PANEL AST 126 0 - 37 04/[address] CHEM PANEL Alk Phos 51 39 - 136 04/[address] CHEM PANEL Bili Total 0.6 0.2 - 1.3 04/[address] CHEM PANEL Bili Direct 0.2 0.0 - 0.3 04/[address] CHEM PANEL Bili Indirect 0.4 0.0 - 1.0 04/[address] CHEM PANEL Globulin 2.8 2.7 - 4.2 04/[address] CHEM PANEL A/G Ratio 0.9 0.7 - 1.6 04/[address] CHEM PANEL Ammonia 29.0 <=45.0 04/10 [facility] uMol/L /[address] [place] [address] CIPROFLOXAC Gram Stain Gram Stain 04/10 [facility] as IN:SUSC:PT: Report Performed Medical ISOLATE:ORD By: Center QN:ELIZABETH [facility] CIPROFLOXAC Culture: Moderate 04/10 [facility] IN:SUSC:PT: Respiratory Staphyloco /2019 Medic al ISOLATE:ORD w/Gram Stain ccus Center QN:ELIZABETH aureus Isolated CIPROFLOXAC Staphylococcu Staphyloco 04/10 [facility] IN:SUSC:PT: s aureus ccus /2019 Medical ISOLATE:ORD aureus Center QN:ELIZABETH CIPROFLOXAC Staphylococcu Staphyloco 04/10 [facility] IN:SUSC:PT: s aureus ccus Medical ISOLATE:ORD aureus [place] QN:ELIZABETH HEMATOLOGY Bands 11.0 0.0 - 11.0 04/[address] HEMATOLOGY Metamyelocyte 3.0 0.0 - 1.0 04/10 [place] [facility] HEMATOLOGY Atypical 0.0 <=0.0 % 04/10 [facility] Lymphs /2019 [facility] HEMATOLOGY Plt Morph Normal Normal 04/10 [facility] (04/10/20 8:40 AM) /2019 [facility] HEMATOLOGY Anisocyte 1+ None [facility] (04/10/20 8:40 AM) [place] HEMATOLOGY PT 16.3 12.0 - 04/10 [facility] 14.7 [facility] HEMATOLOGY INR 1.30 0.85 - 04/10 [facility] 1.17 [facility] MOLECULAR Source Nasophrngl Swb 04/10 [facility] DIAGNOSTIC Respiratory *NA* [facility] Panel PCR (04/10/20 8:40 AM) [facility] MOLECULAR Influenza A Negative Negative 04/10 [facility] DIAGNOSTIC PCR *NA* [facility] (04/10/20 8:40 AM) [place] MOLECULAR Influenza B Negative Negative 04/10 [facility] DIAGNOSTIC PCR *NA* [facility] (04/10/20 8:40 AM) [place] MOLECULAR RSV PCR Negative Negative 04/10 [facility] DIAGNOSTIC *NA* [facility] (04/10/20 8:40 AM) [place] SPECIAL Hgb A1C 5.1 <=5.6 % 04/10 [facility] CHEMISTRY /[address] [place] [address] URINE AND UA Sq Epi None Seen 04/10 [facility] STOOL [address] URINE AND UA Color Yellow Yellow 04/10 [facility] STOOL *NA* [address] [place] [address] (04/10/20 2:35 AM) [place] URINE AND UA Turbidity Clear Clear 04/10 [facility] STOOL (04/10/20 2:35 AM) /2019 [facility] URINE AND UA Spec Grav 1.016 <=1.030 04/10 [facility] STOOL [address] URINE AND UA pH 6.0 5.0 - 8.0 04/10 [facility] STOOL [address] URINE AND UA Protein Negative Negative 04/10 [facility] [place] STOOL mg/dL mg/dL /2019 [facility] URINE AND UA Glucose Negative Negative 04/10 [facility] STOOL mg/dL mg/dL [facility] URINE AND UA Ketones Negative Negative 04/10 [facility] mg/dL mg/dL [facility] URINE AND UA Bili Negative Negative 04/10 [facility] STOOL *NA* /2019 [facility] (04/10/20 2:35 AM) Center URINE AND UA Blood Large Negative 04/10 [facility] *ABN* [facility] (04/10/20 2:35 AM) Center URINE AND UA 2.0 0.1 - 1.0 04/10 [facility] Urobilinogen /2019 [facility] URINE AND UA Nitrite Negative Negative 04/10 [facility] (04/10/20 2:35 AM) /2019 [facility] URINE AND UA Leuk Est Negative Negative 04/10 [facility] (04/10/20 2:35 AM) [facility] URINE AND UA WBC 1 0 - 5 04/10 [facility] STOOL /[address] [place] [address] URINE AND UA RBC 5 0 - 2 04/10 [facility] STOOL /[address] [place] [address] URINE AND UA Mucus Few /LPF None Seen 04/10 [facility] STOOL /LPF /[address] [place] [address] URINE AND UA Hyal Cast 4 0 - 2 04/10 [facility] /[address] [place] [address] BLOOD BANK ABO/Rh O NEG 04/10 [facility] RESULTS /[address] [place] [address] BLOOD BANK Antibody Scrn Negative 04/10 [facility] as RESULTS (04/10/20 2:33 AM) /2019 [facility] CHEM PANEL Procalcitonin 12.83 0.00 - 04/10 Result [facility] Lvl 0.10 Comment: Medical Critical Center Result(s) called to BRENDEN Kearns at 04/10/2020 06:24 by AAA. Read back OK. HEMATOLOGY ACT (TEG) 105 86 - 118 04/[address] HEMATOLOGY [place] 0.5 04/10 [facility] Rapid [address] HEMATOLOGY R-time Rapid 0.6 0.4 - 0.7 04/10 [facility] as /[address] [place] [address] HEMATOLOGY K-time Rapid 0.8 0.6 - 2.3 04/10 [place] as /[address] [place] [address] HEMATOLOGY Angle Rapid 79 64 - 80 04/[address] HEMATOLOGY Max Amplitude 73 52 - 71 04/10 [place] [facility] HEMATOLOGY G-value Rapid 13.5 5.0 - 11.6 04/10 [facility] [place] /2019 [facility] HEMATOLOGY Estimated % 0.8 0.0 - 7.5 04/10 [facility] Lysis [facility] IMMUNOLOGY Coronavirus Not Detected Not 04/10 [facility] [place] (COVID-19) (04/10/20 2:33 AM) Ut dical [facility] Center CHEM PANEL Creatinine 0.89 0.50 - 04/06 [facility] Lvl 1.40 [facility] CHEM PANEL eGFR 78 04/06 Result Comment: [...] estimated BMI. ENDOCRINOLO hCG Tot <1 04/06 [facility] IMMUNOLOGY Coronavirus Not Detected Not 04/06 [facility] [place] (COVID-19) (04/06/20 6:31 AM) Ut dical [facility] CHEM PANEL Glucose Lvl 119 70 - 99 12/07 [facility] CHEM PANEL BUN 15 7 - 22 12/07 [facility] CHEM PANEL Creatinine 0.92 0.50 - 12/07 [facility] Lvl 1.40 [facility] CHEM PANEL Sodium Lvl 139 135 - 145 12/07 [facility]2019 [facility] CHEM PANEL Potassium Lvl 3.4 3.5 - 5.1 12/07 [place] [facility] CHEM PANEL Chloride Lvl 105 95 - 109 12/07 [facility] CHEM PANEL CO2 28 24 - 32 08/ [address] CHEM PANEL Calcium Lvl 9.2 8.5 - 10.5 08 [facility] as [facility] CHEM PANEL AGAP 9.4 10.0 - 08 [facility] 20.0 [facility] CHEM PANEL eGFR 75 08/ [facility] Comment: The Medical eGFR is Center [...] BMI. HEMATOLOGY Segs 79.4 45.0 - 08 [facility] 75.0 [facility] HEMATOLOGY Lymphocytes 16.0 20.0 - 08 [facility] 40.0 [facility] HEMATOLOGY Monocytes 4.3 2.0 - 12.0 / [address] HEMATOLOGY Basophils 0.3 0.0 - 1.0 08/ [address] HEMATOLOGY Neutrophils # 7.4 1.5 - 8.1 12/[address] HEMATOLOGY Lymphocytes # 1.5 1.0 - 5.5 / [address] HEMATOLOGY Monocytes # 0.4 0.0 - 0.8 08/ [facility] HEMATOLOGY WBC 9.3 3.7 - 10.4 12/[address] HEMATOLOGY RBC 4.33 4.20 - 08/ [place] 5.40 [facility] HEMATOLOGY Hgb 12.6 12.0 - 08/ [facility] 16.0 [facility] HEMATOLOGY Hct 37.3 36.0 - 08/ [facility] 48.0 [facility] HEMATOLOGY MCV 86.2 80.0 - 12/07 [facility] 98.0 [facility] HEMATOLOGY MCH 29.2 27.0 - 08 [facility] 31.0 [facility] HEMATOLOGY MCHC 33.8 32.0 - 08 [facility] 36.0 [facility] HEMATOLOGY RDW 13.8 11.5 - 08 [facility] 14.5 [facility] HEMATOLOGY Platelet 254 133 - [address] HEMATOLOGY MPV 8.0 7.4 - 10.[address] URINE CHEM U Preg Negative Negative 12/07 [facility] (12/07/19 7:14 PM) [address] URINE AND UA Color Yellow Yellow 12/05 [facility] STOOL *NA* /[address] [place] [address] (12/06/19 9:26 AM) [place] URINE AND UA Turbidity Slight Clear 12/05 [facility] *[facility]* [address] (12/06/19 9:26 AM) [place] URINE AND UA Spec Grav 1.009 <=1.030 12/05 [facility] /[address] [place] [address] URINE AND UA pH 7.0 5.0 - 8.0 12/05 [facility] /[address] [place] [address] URINE AND UA Protein Negative Negative 12/05 [facility] mg/dL mg/dL [address] [place] [address] URINE AND UA Glucose Negative Negative 12/05 [facility] mg/dL mg/dL /[address] [place] [address] URINE AND UA Ketones Negative Negative 12/05 [facility] mg/dL mg/dL /[address] [place] [address] URINE AND UA Bili Negative Negative 12/05 [facility] STOOL *NA* [address] [place] [address] (12/06/19 9:26 AM) [place] URINE AND UA Blood Small Negative 12/05 [facility] *ABN* [address] (12/06/19 9:26 AM) [place] URINE AND UA <1.0 0.1 - 1.0 12/05 [facility] Urobilinogen /[address] [place] [address] URINE AND UA Nitrite Negative Negative 12/05 [facility] (12/06/19 9:26 AM) [address] URINE AND UA Leuk Est Large Negative 12/05 [facility] *ABN* [address] (12/06/19 9:26 AM) Center URINE AND UA Sq Epi Occasional Few /LPF 12/05 [facility] STOOL /LPF /[address] [place] [address] URINE AND UA WBC 1 0 - 5 12/[address] URINE AND UA RBC 1 0 - 2 12/[address] URINE AND UA Bacteria Occasional None Seen 12/05 [facility] STOOL /HPF /HPF /[address] [place] [address] IMMUNOLOGY Coronavirus Not Detected Not 12/05 [facility] (COVID-19) (12/06/19 4:39 AM) [facility] Glucose Lvl 128 70 - 99 12/[address] CHEM PANEL BUN 7 7 - 22 12/[address] CHEM PANEL Creatinine 0.92 0.50 - 12/05 [facility] Lvl 1.40 [facility] CHEM PANEL Sodium Lvl 136 135 - 145 12/[address] CHEM PANEL Potassium Lvl 4.7 3.5 - 5.1 12/[address] CHEM PANEL Chloride Lvl 105 95 - 109 12/05 [facility] [address] CHEM PANEL CO2 22 24 - 32 12/[address] CHEM PANEL Calcium Lvl 9.4 8.5 - 10.5 12/[address] CHEM PANEL AGAP 13.7 10.0 - 12/05 [facility] 20.0 [facility] CHEM PANEL eGFR 75 12/05 Result Comment: [...] Center HEMATOLOGY MCH 29.5 27.0 - 08/ [facility] 31.0 /2019 [facility] HEMATOLOGY MCHC 33.9 32.0 - 08/ [facility] 36.0 /2019 [facility] Center HEMATOLOGY RDW 13.9 11.5 - 08 [facility] 14.5 /2019 [facility] Center HEMATOLOGY Platelet 231 133 - 450 12/05 /2019 [facility] HEMATOLOGY MPV 7.3 7.4 - 10.4 12/05 /2019 [facility] HEMATOLOGY PT 12.1 12.0 - 08 [facility] 14.7 /2019 [facility] Center HEMATOLOGY INR 0.90 0.85 - 12/05 [facility] 1.17 [facility] HEMATOLOGY PTT 26.2 22.9 - 08 [facility] 35.8 2020 [facility] HEMATOLOGY ACT (TEG) 97 86 - 118 12/05 [facility] Rapid /2020 [facility] HEMATOLOGY [place] 0.4 12/05 [facility] Rapid /2020 [facility] Center HEMATOLOGY R-time Rapid 0.5 0.4 - 0.7 12/05 [facility] as [facility] Center HEMATOLOGY K-time Rapid 3.0 0.6 - 2.3 12/05 [facility] as /2019 [facility] Center HEMATOLOGY Angle Rapid 71 64 - 80 12/[address] HEMATOLOGY Max Amplitude 49 52 - 71 12/05 [place] 2020 [facility] HEMATOLOGY G-value Rapid 4.8 5.0 - 11.6 12/05 [place] [facility] HEMATOLOGY Estimated % 0.0 0.0 - 7.5 12/05 [facility] [place] Rapid 2020 [facility] HEMATOLOGY RBC Morph Normal Normal 12/05 [facility] (12/06/19 2:59 AM) /2019 [facility] HEMATOLOGY Plt Morph Normal Normal 12/05 [facility] (12/06/19 2:59 AM) [facility] HEMATOLOGY Segs 75.9 45.0 - 12/05 [facility] 75.0 [facility] HEMATOLOGY Lymphocytes 21.3 20.0 - 12/05 40.0 [facility] HEMATOLOGY Monocytes 2.3 2.0 - 12.0 12/05 [facility] HEMATOLOGY Eosinophils 0.1 0.0 - 4.0 12/05 [facility] HEMATOLOGY Basophils 0.4 0.0 - 1.0 12/05 [facility] HEMATOLOGY Neutrophils # 3.4 1.5 - 8.1 12/05 [facility] HEMATOLOGY Lymphocytes # 1.0 1.0 - 5.5 12/05 [facility] HEMATOLOGY Monocytes # 0.1 0.0 - 0.8 12/05 [facility] BLOOD BANK ABO/Rh O NEG 12/05 [facility] RESULTS [facility] BLOOD BANK Antibody Scrn Negative 12/05 [facility] RESULTS (12/06/19 2:58 AM) [facility] CHEM PANEL eGFR 96 07/04 Result Comment: [...] Calcium Lvl 8.1 8.5 - 10.5 07/04 [facility] /2015 [facility] CHEM PANEL CO2 26 24 - 32 07/04 [facility] CHEM PANEL Creatinine 0.77 0.50 - 07/04 [facility] Lvl 1.40 /2015 [facility] CHEM PANEL BUN 3 7 - 22 07/04 [facility] CHEM PANEL Potassium Lvl 3.1 3.5 - 5.1 07/04 [facility] CHEM PANEL Sodium Lvl 143 135 - 145 07/04 [facility] CHEM PANEL Glucose Lvl 116 70 - 99 07/04 [facility] CHEM PANEL Chloride Lvl 108 95 - 109 07/04 [facility] CHEM PANEL AGAP 12.1 10.0 - 07/04 20.0 [facility] HEMATOLOGY Plt Morph Normal 07/04 [facility] (07/05/15 3:46 PM) [facility] HEMATOLOGY Tot Cell Ct 100 07/04 [facility] HEMATOLOGY Atypical 0.0 <=0.0 % 07/04 [facility] Lymph [facility] HEMATOLOGY RBC Morph Normal 07/04 [facility] (07/05/15 3:46 PM) [facility] HEMATOLOGY Lymphocytes 40.0 20.0 - 07/04 40.0 [facility] HEMATOLOGY Monocytes 4.0 2.0 - 12.0 07/04 [facility] HEMATOLOGY Segs-Bands # 3.5 1.5 - 8.1 07/04 [facility] HEMATOLOGY Lymphocytes # 2.5 1.0 - 5.5 07/04 [facility] HEMATOLOGY Monocytes # 0.2 0.0 - 0.8 07/04 [facility] HEMATOLOGY Segs 56.0 45.0 - 07/04 75.0 [facility] HEMATOLOGY Bands 0.0 0.0 - 11.0 07/04 [facility] HEMATOLOGY RDW 15.8 11.5 - 07/04 14.5 [facility] HEMATOLOGY MPV 6.9 7.4 - 10.4 07/04 [facility] HEMATOLOGY Platelet 357 133 - 450 07/04 [facility] HEMATOLOGY MCV 83.1 80.0 - 07/04 98.0 [facility] HEMATOLOGY RBC 3.91 4.20 - 07/04 5.40 [facility] HEMATOLOGY WBC 6.2 3.7 - 10.4 07/04 [facility] HEMATOLOGY Hct 32.5 36.0 - 03 [place] 48.0 /2016 [facility] HEMATOLOGY Hgb 10.8 12.0 - 07/04 [place] 16.0 /2015 [facility] HEMATOLOGY MCHC 33.2 32.0 - 07/04 [place] 36.0 /2015 [facility] HEMATOLOGY MCH 27.6 27.0 - 07/04 [place] 31.0 /2015 [facility] URINE AND UA Leuk Est Negative Negative 07/04 [facility] (07/05/15 3:19 PM) /2015 [facility] URINE AND UA Nitrite Negative Negative 07/04 [facility] (07/05/15 3:19 PM) [facility] URINE AND UA 0.2 0.1 - 1.0 07/04 [facility] Urobilinogen /2015 [facility] URINE AND UA Blood Negative Negative 07/04 [facility] (07/05/15 3:19 PM) [facility] URINE AND UA Bili Negative Negative 07/04 [facility] *NA* /2015 [facility] (07/05/15 3:19 PM) [place] URINE AND UA Ketones Negative Negative 07/04 [facility] mg/dL mg/dL /2015 [facility] URINE AND UA Glucose Negative Negative 07/04 [facility] mg/dL mg/dL /2015 [facility] URINE AND UA Protein Negative Negative 07/04 [facility] mg/dL mg/dL /2015 [facility] URINE AND UA pH 7.0 5.0 - 8.0 07/04 [facility] URINE AND UA Spec Grav 1.015 <=1.030 07/04 [facility] URINE AND UA Turbidity Clear Clear 07/04 [facility] (07/05/15 3:19 PM) [facility] URINE AND UA Color Yellow Yellow 07/04 [facility] *NA* [facility] (07/05/15 3:19 PM) [place] URINE AND UA Sq Epi None Seen Few 07/04 [facility] (07/05/15 3:19 PM) [facility] CHEM PANEL eGFR 93 05/27 Result [...] Potassium Lvl 3.3 3.5 - 5.1 05/27 [facility] CHEM PANEL Sodium Lvl 142 135 - 145 05/27 2015 [facility] CHEM PANEL Creatinine 0.80 0.50 - 05/27 [facility] Lvl 1.40 [facility] CHEM PANEL Calcium Lvl 8.6 8.5 - 10.5 05/27 [facility] CHEM PANEL CO2 27 24 - 32 05/27 2015 [facility] CHEM PANEL AGAP 13.3 10.0 - 05/27 [place] 20.0 [facility] CHEM PANEL Chloride Lvl 105 95 - 109 05/27 [facility] CHEM PANEL Glucose Lvl 93 70 - 99 05/27 2015 [facility] CHEM PANEL BUN 14 7 - 22 05/[address] CHEM PANEL Bili Total 0.3 0.2 - 1.3 05/27 2015 [facility] CHEM PANEL Globulin 3.3 2.0 - 4.0 05/27 [facility] CHEM PANEL Bili Direct 0.1 0.0 - 0.3 05/27 [facility] CHEM PANEL Alk Phos 190 39 - 136 05/27 [facility]2015 [facility] CHEM PANEL AST 31 0 - 37 05/27 [facility]2015 [facility] CHEM PANEL Albumin Lvl 3.4 3.5 - 5.0 05/27 [facility] CHEM PANEL ALT 112 0 - 65 05/[address] CHEM PANEL Bili Indirect 0.2 0.0 - 1.0 05/27 [facility] CHEM PANEL A/G Ratio 1.0 0.7 - 1.6 05/27 [facility] CHEM PANEL Total Protein 6.7 6.4 - 8.4 05/27 [facility] CHEM PANEL A/G Ratio 0.9 0.7 - 1.6 05/25 [facility] CHEM PANEL Globulin 3.8 2.0 - 4.0 05/25 [facility] CHEM PANEL AGAP 11.1 10.0 - 05/25 [place] 20.0 [facility] CHEM PANEL B/C Ratio 23 6 - 25 05/25 [facility] CHEM PANEL eGFR 105 05/25 Result Comment: The [facility] eGFR is Center calculated using the CKD-EPI [...] Chloride Lvl 108 95 - 109 05/25 [facility] CHEM PANEL Creatinine 0.71 0.50 - 05/25 [facility] Lvl 1.40 [facility] CHEM PANEL Potassium Lvl 4.1 3.5 - 5.1 05/25 [facility] CHEM PANEL CO2 24 24 - 32 05/25 [facility] CHEM PANEL Sodium Lvl 139 135 - 145 05/25 [facility] CHEM PANEL Albumin Lvl 3.3 3.5 - 5.0 05/25 [facility] CHEM PANEL ALT 187 0 - 65 05/25 [facility] CHEM PANEL AST 50 0 - 37 05/25 [facility] CHEM PANEL Calcium Lvl 8.2 8.5 - 10.5 05/25 [facility] CHEM PANEL Total Protein 7.1 6.4 - 8.4 05/25 [place] [facility] CHEM PANEL Bili Total 0.4 0.2 - 1.3 05/25 [facility] CHEM PANEL Alk Phos 238 39 - 136 05/25 [facility] CHEM PANEL Glucose Lvl 111 70 - 99 05/25 [facility] CHEM PANEL BUN 16 7 - 22 05/25 [facility] HEMATOLOGY Lymphocytes 14.9 20.0 - 05/25 [place] 40.0 [facility] HEMATOLOGY Monocytes 3.4 2.0 - 12.0 05/25 [facility] HEMATOLOGY Eosinophils 0.1 0.0 - 4.0 05/25 a [facility] HEMATOLOGY Basophils 0.2 0.0 - 1.0 05/25 [facility] HEMATOLOGY Lymphocytes # 1.3 1.0 - 5.5 05/25 [facility] HEMATOLOGY Monocytes # 0.3 0.0 - 0.8 05/25 [facility] HEMATOLOGY Segs-Bands # 6.9 1.5 - 8.1 05/25 [facility] HEMATOLOGY Segs 81.4 45.0 - 05/25 [place] 75.0 [facility] HEMATOLOGY RBC 4.66 4.20 - 05/25 [place] 5.40 /2015 [facility] HEMATOLOGY Hct 39.4 36.0 - 05/25 [place] 48.0 [facility] HEMATOLOGY Hgb 13.1 12.0 - 05/25 [place] 16.0 [facility] HEMATOLOGY WBC 8.5 3.7 - 10.4 05/25 [facility] HEMATOLOGY MCHC 33.2 32.0 - 05/25 [place] 36.0 [facility] HEMATOLOGY MCH 28.1 27.0 - 05/25 [place] 31.0 [facility] HEMATOLOGY MCV 84.5 80.0 - 05/25 [place] 98.0 [facility] HEMATOLOGY MPV 7.8 7.4 - 10.4 05/25 [facility] HEMATOLOGY Platelet 328 133 - 450 05/25 [facility] HEMATOLOGY RDW 15.9 11.5 - 05/25 14.5 [facility] CHEM PANEL ALT 266 0 - 65 05/24 [facility] CHEM PANEL A/G Ratio 1.0 0.7 - 1.6 05/24 [facility] CHEM PANEL AST 96 0 - 37 05/24 [facility] CHEM PANEL Calcium Lvl 9.1 8.5 - 10.5 05/24 [facility] CHEM PANEL Alk Phos 289 39 - 136 05/24 [facility] CHEM PANEL Bili Total 0.6 0.2 - 1.3 05/24 [facility] CHEM PANEL eGFR 83 05/24 [facility] Comment: The [facility] eGFR is Center calculated using the CKD-EPI [...] 7.4 6.4 - 8.4 05/24 [place] [facility] CHEM PANEL B/C Ratio 25 6 - 25 05/24 [facility] CHEM PANEL Albumin Lvl 3.7 3.5 - 5.0 05/24 s [facility] CHEM PANEL AGAP 15.6 10.0 - 05/24 20.0 [facility] CHEM PANEL Globulin 3.7 2.0 - 4.0 05/24 [facility] CHEM PANEL Creatinine 0.87 0.50 - 05/24 [place] Lvl 1.40 /2015 [facility] CHEM PANEL CO2 22 24 - 32 05/24 [facility] CHEM PANEL Chloride Lvl 103 95 - 109 05/24 [facility] CHEM PANEL Potassium Lvl 3.6 3.5 - 5.1 05/24 [facility] CHEM PANEL Sodium Lvl 137 135 - 145 05/24 [facility] CHEM PANEL BUN 22 7 - 22 05/24 [facility] CHEM PANEL Glucose Lvl 140 70 - 99 05/24 [facility] HEMATOLOGY Basophils # 0.1 0.0 - 0.2 05/24 [facility] HEMATOLOGY Segs 81.5 45.0 - 05/24 [place] 75.0 [facility] HEMATOLOGY Monocytes # 0.7 0.0 - 0.8 05/24 [facility] HEMATOLOGY Segs-Bands # 11.3 1.5 - 8.1 05/24 [facility] HEMATOLOGY Basophils 0.5 0.0 - 1.0 05/24 [facility] HEMATOLOGY Lymphocytes # 1.7 1.0 - 5.5 05/24 [facility] HEMATOLOGY Lymphocytes 12.4 20.0 - 05/24 [place] 40.0 [facility] HEMATOLOGY Eosinophils 0.4 0.0 - 4.0 05/24 [facility] HEMATOLOGY Monocytes 5.2 2.0 - 12.0 05/24 [facility] HEMATOLOGY MPV 8.1 7.4 - 10.4 05/24 [facility] HEMATOLOGY WBC 13.9 3.7 - 10.4 05/24 [facility] HEMATOLOGY RDW 15.6 11.5 - 05/24 [place] 14.5 [facility] HEMATOLOGY Platelet 387 133 - 450 05/24 [facility] HEMATOLOGY RBC 5.06 4.20 - 05/24 [place] 5.40 [facility] HEMATOLOGY MCHC 32.2 32.0 - 05/24 [place] 36.0 [facility] HEMATOLOGY MCH 26.5 27.0 - 05/24 [place] 31.0 [facility] HEMATOLOGY Hct 41.6 36.0 - 05/24 [place] 48.0 /2015 [facility] HEMATOLOGY MCV 82.1 80.0 - 05/24 [place] 98.0 /2015 [facility] HEMATOLOGY Hgb 13.4 12.0 - 05/24 [place] 16.0 [facility] HEMATOLOGY RDW 15.5 11.5 - 05/23 [place] 14.5 /2015 [facility] HEMATOLOGY MCHC 33.2 32.0 - 05/23 [place] 36.0 [facility] HEMATOLOGY MPV 7.7 7.4 - 10.4 05/23 [facility] HEMATOLOGY Platelet 384 133 - 450 05/23 [facility] HEMATOLOGY WBC 11.3 3.7 - 10.4 05/23 [facility] HEMATOLOGY MCV 82.5 80.0 - 05/23 [place] 98.0 /2015 [facility] HEMATOLOGY MCH 27.4 27.0 - 05/23 [place] 31.0 [facility] HEMATOLOGY RBC 5.00 4.20 - 05/23 [place] 5.40 /2015 [facility] HEMATOLOGY Hct 41.3 36.0 - 05/23 [place] 48.0 [facility] HEMATOLOGY Hgb 13.7 12.0 - 05/23 [place] 16.0 [facility] HEMATOLOGY Segs-Bands # 7.8 1.5 - 8.1 05/23 [place] [facility] HEMATOLOGY Lymphocytes # 2.5 1.0 - 5.5 05/23 [place] [facility] HEMATOLOGY Segs 67.0 45.0 - 05/23 [place] 75.0 [facility] HEMATOLOGY Monocytes # 0.6 0.0 - 0.8 05/23 [place] [facility] HEMATOLOGY Monocytes 5.0 2.0 - 12.0 05/23 [facility] HEMATOLOGY Myelocytes 3.0 <=0.0 % 05/23 [facility] HEMATOLOGY Metamyelocyte 1.0 0.0 - 1.0 05/23 [place] [facility] HEMATOLOGY RBC Morph Normal 05/23 [facility] (05/23/15 3:17 PM) [facility] Plt Morph Normal 05/23 [facility] (05/23/15 3:17 PM) /[facility] Atypical 0.0 <=0.0 % 05/23 [facility] Lymphs [facility] HEMATOLOGY Bands 2.0 0.0 - 11.0 05/23 [facility] HEMATOLOGY Lymphocytes 22.0 20.0 - 05/23 [place] 40.0 [facility] HEMATOLOGY Tot Cell Ct 100 05/23 [facility] CHEM PANEL B/C Ratio 33 6 - 25 05/23 [facility] HEMATOLOGY Basophils 0.5 0.0 - 1.0 05/21 [facility] HEMATOLOGY Basophils # 0.1 0.0 - 0.2 05/21 [facility] HEMATOLOGY Eosinophils 0.3 0.0 - 4.0 05/21 [facility] CHEM PANEL Magnesium Lvl 2.4 1.8 - 2.4 05/15 [facility] CHEM PANEL Phosphorus 1.7 2.5 - 4.5 05/15 [facility] HEMATOLOGY Plt Morph Normal 05/15 [facility] (05/15/15 4:27 AM) [facility] HEMATOLOGY RBC Morph Normal 05/15 [facility] (05/15/15 4:27 AM) /2015 [facility] HEMATOLOGY INR 1.24 0.85 - 05/15 [facility] 1.17 [facility] HEMATOLOGY PT 15.9 12.0 - 05/15 [facility] 14.7 [facility] CHEM PANEL Magnesium Lvl 2.2 1.8 - 2.4 05/14 [facility] CHEM PANEL Phosphorus 2.1 2.5 - 4.5 05/14 [facility] ENDOCRINOLO Cortisol Free <0.03 05/13 Result [facility] Comment: Medical
Adult Center Reference Ranges for Cortisol, Free,
LC/MS/MS:<br/ >
8:00 - 10:00 AM 0.07-0.93 mcg/dL
4:00 - 6:00 PM 0.04-0.45 mcg/dL
10:00 - 11:00 PM 0.04-0.35 mcg/dL
Te st Performed at:
[place]<br/ >[id number] [facility] [place] [address] Jarad Moran MD, PhD CHEM PANEL Magnesium Lvl 2.2 1.8 - 2.4 05/13 [facility] xa [facility] CHEM PANEL Phosphorus 3.2 2.5 - 4.5 05/13 [facility] HEMATOLOGY PT 17.0 12.0 - 05/13 [place] 14.7 /2015 [facility] HEMATOLOGY PTT 53.3 22.9 - 05/13 [place] 35.8 /2015 [facility] HEMATOLOGY INR 1.35 0.85 - 05/13 [facility] 1.17 [facility] HEMATOLOGY Polychrom slight 05/13 [facility] HEMATOLOGY Hypochrom 1+ None Seen 05/13 [facility] (05/13/15 3:21 AM) /2015 [facility] HEMATOLOGY Anisocyte 1+ None Seen 05/13 [place] *ABN* Medical (05/13/15 3:21 AM) Center HEMATOLOGY Eosinophils # 0.1 0.0 - 0.5 05/12 [place] [facility] DRUG SCREEN U Cannab Scr Negative [...] DRUG SCREEN UDS Note See Note 05/12 [facility] (05/11/15 6:25 PM) [facility] Center DRUG SCREEN U [place] Positive Negative 05/12 [place] *ABN* Medical (05/11/15 6:25 PM) Center DRUG SCREEN U Amph [place] Negative Negative 05/12 [place] *NA* [facility] (05/11/15 6:25 PM) Center DRUG SCREEN U Amanda Scr Negative Negative 05/12 [place] *[place] [facility] (05/11/15 6:25 PM) Center URINE AND UA Sq Epi None Seen 05/12 [facility] STOOL [facility] URINE AND UA RBC <1 0 - 2 05/12 [facility] STOOL [facility] URINE AND UA Mucus Few /LPF None Seen 05/12 [facility] STOOL /LPF /2015 [facility] URINE AND UA WBC 1 0 - 5 05/12 [facility] STOOL /2015 [facility] URINE AND UA Leuk Est Negative Negative 05/12 [facility] STOOL (05/11/15 6:25 PM) /2015 [facility] URINE AND UA pH 6.0 5.0 - 8.0 05/12 [facility] STOOL [facility] URINE AND UA Spec Grav 1.019 <=1.030 05/12 [facility] STOOL [facility] URINE AND UA Nitrite Negative Negative 05/12 [facility] (05/11/15 6:25 PM) /2015 [facility] URINE AND UA Blood Negative Negative 05/12 [facility] (05/11/15 6:25 PM) [facility] URINE AND UA 2.0 0.1 - 1.0 05/12 [facility] Urobilinogen /2015 [facility] URINE AND UA Ketones 60 mg/dL Negative 05/12 [facility] mg/dL [facility] URINE AND UA Bili Negative Negative 05/12 [facility] *NA* /2015 [facility] (05/11/15 6:25 PM) [place] URINE AND UA Protein 20 mg/dL Negative 05/12 [facility] mg/dL [facility] URINE AND UA Glucose Negative Negative 05/12 [facility] mg/dL mg/dL [facility] URINE AND UA Turbidity Clear Clear 05/12 [facility] (05/11/15 6:25 PM) [facility] URINE AND UA Color Yellow Yellow 05/12 [facility] *NA* /2015 [facility] (05/11/15 6:25 PM) [place] URINE CHEM U Preg Negative Negative 05/12 [facility] (05/11/15 6:25 PM) [facility] ENDOCRINOLO Cortisol Free 0.07 05/12 Result [facility] Comment: Medical
Adult Center Reference Ranges for Cortisol, Free,
LC/MS/MS:<br/ >
8:00 - 10:00 AM 0.07-0.93 mcg/dL
4:00 - 6:00 PM 0.04-0.45 mcg/dL
10:00 - 11:00 PM 0.04-0.35 mcg/dL
Te st Performed at:
[facility]<br/ >[id number] [facility]
[place] [address] Jarad Moran MD, PhD PARATHYROID Ca Norm WB 1.08 1.05 - 05/12 [place] PROFILE 05.28 [facility] PARATHYROID Ca Ion WB 1.11 . - 05/12 PROFILE 05.28 [facility] TOXICOLOGY [place] Lvl 41 05/12 Result Comment: [facility] Levels:
Drug Dosage Trough (mcg/mL) Peak (mcg/mL)
500 mg BID 3.1 - 10.0 10.0 - 25.0
1000 mg BID 4.9 - 37.1 30.0 - 40.0
1500 mg BID 7.0 - 34.0 36.1 - 70.0

Toxic level not established<b r/>Test Performed at:
[facility] [place]
[facility], [address] [place] [address]
[place] [address] Som Purvis MD, FCAP HEMATOLOGY Basophils # 0.1 0.0 - 0.2 05/11 a s [facility] HEMATOLOGY Eosinophils # 0.2 0.0 - 0.5 05/11 [place] [facility] TOXICOLOGY Lamotrigine 38.4 4.0 - 18.0 05/10 Result [facility] Comment: Test Medical Performed Center at:
[facility]
[facility], [address] [place] [address]
[place] [address] Som Purvis MD, FCAP HEMATOLOGY Eosinophils # 0.2 0.0 - 0.5 05/10 [place] [facility] CHEM PANEL Lactic Acid 0.9 0.5 - 2.2 05/10 [place] [facility] PARATHYROID Ca Norm WB 1.01 1.05 - 05/10 [place] PROFILE 05.28 [facility] PARATHYROID Ca Ion WB 0.98 1.05 - 05/10 [place] PROFILE 05.28 [facility] TOXICOLOGY Lamotrigine 34.2 4.0 - 18.0 05/10 Result [facility] Comment: Test Medical Performed Center at:
SETVI [place]
[facility], [address] [place] [address]
[place] [address] Som Purvis MD, [facility]
Crit ical Result(s) called to JERRICA FAUSTOJULI at _05/15/2015 17:38 by_CYTJONA. Read back OK.
Resul t Comment: Test Performed at:
SETVI Man[place]
[facility], [address] [place] [address]
[place] [address] Som Purvis MD, AP TOXICOLOGY [place] Lvl 05/10 Result [facility] Comment: [facility] Levels:
Drug Dosage Trough (mcg/mL) Peak (mcg/mL)
500 mg BID 3.1 - 10.0 10.0 - 25.0
1000 mg BID 4.9 - 37.1 30.0 - 40.0
1500 mg BID 7.0 - 34.0 36.1 - 70.0

Toxic level not established<b r/>Test Performed at:
SETVI Man[place]
[facility], [address] [place] [address]
[place] [address] Som Purvis MD, [facility] Pathology Reports No Data Provided for This Section Diagnostic Reports Report Value Date Source Chest 1view DX EXAM: XR CHEST 1 VIEW 04/16/2020 [facility] edical DATE: 04/16/2020 3:00 MANAGER ANIMAL Center INDICATION: - micu, intubated. TECHNIQUE: Chest [...] for EXAM: XR CHEST 1 VIEW 04/15/2020 [facility] edical Placement DX DATE: 04/15/2020 4:[address] INDICATION: Line Placement - Chest [...] for EXAM: XR CHEST 1 VIEW 04/14/2020 [facility] edical Placement DX DATE: 04/14/2020 at 2240 [...] DX EXAM: XR CHEST 1 VIEW 04/14/2020 [facility] edical DATE: 04/14/2020 6:[address] AN[address] INDICATION: - worsening respiratory function [...] CT EXAM: CT HEAD WITHOUT CONTRAST 04/14/2020 [facility] DATE: 04/14/2020 4:08 PM [address] ANIMAL [address] INDICATION: 44 years old Fem [...] DX EXAM: XR CHEST 1 VIEW 04/14/2020 [facility] edical DATE: 04/14/2020 5:35 AM [address] ANIM[address] INDICATION: - increased O2 requirement [...] DX EXAM: XR CHEST 1 VIEW 04/13/2020 [facility] edical DATE: 04/13/2020 3:00 [address] ANIM[address] INDICATION: aspiration pna evaluation - aspirati on pna evaluation COMPARISON: Chest x-ray dated 04/12/2020 TECHNIQUE: AP chest IMPRESSION: 1. Interval removal of the e ndotracheal tube and gastric suction tube. ENGLISH [employer] A [employer] LANG[employer]AGE [employer] shunt catheter superimposing over the right thoracoabdominal [...] DX EXAM: XR CHEST 1 VIEW 04/11/2020 [facility] edical DATE: 04/11/2020 8:02 AM MANAGER ANIMAL [facility] INDICATION: - aspiration pneumonia COMPARISON: Chest [...] DX EXAM: XR CHEST 1 VIEW 04/11/2020 [facility] edical DATE: 04/12/2020 3:00 MANAGER ANIMAL Center INDICATION: - Cardiomyopathy. TECHNIQUE: Chest 1 [...] CT EXAM: CT HEAD WITHOUT CONTRAST. 04/10/2020 [facility] DATE: 04/10/2020 1:25 MANAGER ANIMAL Center INDICATION: Reevaluation of multiple intracrania l [...] DX EXAM: XR ABDOMEN 1 VIEW 04/10/2020 [facility] DATE: 04/10/2020 10:43 MANAGER ANIMAL Center INDICATION: - ngt placement ADDITIONAL INFORMATION: [...] DX EXAM: XR CHEST 1 VIEW 04/10/2020 [facility] DATE: 04/10/2020 10:20 AM MANAGER ANIMAL [facility] INDICATION: - pna COMPARISON: April 10, [...] EXAM: ABDOMEN 2 VIEWS DATE: 04/10/2020 1:17 MANAGER ANIMAL INDICATION: - eval shunt COMPARISON: CT brain [...] DX EXAM: XR CHEST 1 VIEW 04/09/2020 [facility] edical DATE: 04/10/2020 at 0049 hours Ce nter INDICATION: - Undifferentiated Sepsis COMPARISON: Chest radiograph 04/09/2020, 020 TECHNIQUE: AP chest. FINDINGS: Lines, tubes and hardware: T he endotracheal tip projects approximately 3.5 cm above the giovanni. The gastric tube tip projects outside the dhkcn-tb-iick. A ENGLISH AS A SECOND LANGUAGE TEACHER shunt projects over the right hemithorax and extends outside the sqhui-ee-afml. Lungs and pleura: Pulmonary vascularity is normal. [...] Consult EXAM: CT HEAD WITHOUT CONTRAST 04/09/2020 [facility] CT DATE: Study was performed at outside hospital on 04/09/2020 at 8:32 PM and submitted for 2nd interpretation on 04/10/2020 12:52 AM MANAGER ANIMAL Center INDICATION: 44 years old Fem fredo [...] lateral ventricle and 6 to 7 mm jfcjy-[id number] midline shift. Previously seen area of ence phalomalacia within bilateral frontal, left temporal lobes have not significantly changed from prior exam. Stable position of the poste rior approach ENGLISH AS A SECOND LANGUAGE TEACHER shunt with distal tip located adjacent to [...] ventricle resulted in 6 to 7 mm ismfo-zf-rsil midline shift. 3. Stable left lateral ventricular enlargement. Brain w contrast MRI EXAM: MRI BRAIN WITH CONTRAST 04/06/2020 [facility] DATE: 04/06/2020 09:50 MANAGER ANIMAL Center INDICATION: '- Gamma Knife with GA'. [...] MRI EXAM: MRI BRAIN WITHOUT CONTRAST 0 [facility] DATE: 01/27/2020 11:49 CDT INDICATION: 44-year-old fema [...] DX EXAM: XR SKULL 1 VIEW 01/27/2020 [facility] edical DATE: 01/27/2020 at 0813 hours [...] CT EXAM: CT BRAIN WITHOUT CONTRAST 01/27/2020 [facility] DATE: 01/27/2020 7:24 AM CDT [facility] INDICATION: - Gamma Knife COMPARISON: MRI [...] EXAM: MRI BRAIN WITH AND WITHOUT CONTRAST [facility] MRI DATE: 12/06/2019 4:38 CDT Center INDICATION: [...] lobe. Unchanged position of right posterior approach ENGLISH AS A SECOND LANGUAGE TEACHER shunt, with tip in the left aspect [...] BRAIN WITH AND WITHOUT CONTRAST 0 12/09/2019 [facility] DATE: 12/06/2019 4:38 CDT Center INDICATION: Multiple [...] lobe. Unchanged position of right posterior approach ENGLISH AS A SECOND LANGUAGE TEACHER shunt, with tip in the left aspect [...] DX EXAM: XR SKULL 2 VIEWS 12/07/2019 [facility] DATE: 12/07/2019 11:49 T Center INDICATION: - [...] DX EXAM: XR SKULL 2 VIEWS 12/06/2019 [facility] DATE: 12/06/2019 10:11 CDT Center INDICATION: - pre mri evp sales shunt eval COMPARISON: CT brain 12/05/2019. TECHNIQUE: [...] CT CERVICAL SPINE WITHOUT CONTRAST 0 12/05/2019 [facility] [address] DATE: 12/05/[address] INDICATION: -Fall following trauma transfer for higher level of care request for outside film interpretation CT cervical spine without contrast performed on 12/05/2019 [facility] COMPARISON: Magnetic resonance imaging of the [...] Consult EXAM: CT HEAD WITHOUT CONTRAST 12/05/[address] [facility] [address] DATE: Study was performed at outside [...] changed from prior exam. Right posterior approach ENGLISH AS A SECOND LANGUAGE TEACHER shunt is seen within the right lateral [...] from prior exam. 3. Right posterior approach ENGLISH [employer] A SEC[employer] LANGUAGE TEACHER shunt is seen within the right lateral ventricle. 4. Again seen are multiple defects from prior craniotomies and likely trauma. These findings are in agreem ent with previous preliminary report made by site acquisition manager resident physician. Brain-Outside Consult EXAM: CT BRAIN WITHOUT CONTRAST 07/05/[address] [facility] [address] DATE: 07/05/2015 Center INDICATION: 2nd opinion [...] series DX EXAM: FOOT 3 VIEWS 05/25/2015 [facility] DATE: Order Observation End Time: May [...] DX EXAM: XR ABDOMEN 2 views 05/25/2015 [facility] DATE: 05/23/2015 at 16: 57. INDICATION: G-tube confirmation. ADDITIONAL INFORMATION: None. COMPARISON: 05/13/2015. TECHNIQUE: Supine films of the upper abdomen before and after injection of contrast via G-tube FINDINGS: Alarm Service Technician film shows a shunt tub e is [...] EXAM: XR RIGHT ELBOW 3 VIEWS 05/24/2015 [facility] EXAM: XR RIGHT FOREARM 2 VIEWS [...] EXAM: XR RIGHT ELBOW 3 VIEWS 05/24/2015 [facility] EXAM: XR RIGHT FOREARM 2 VIEWS [...] EXAM: XR RIGHT ELBOW 3 VIEWS 05/24/2015 [facility] EXAM: XR RIGHT FOREARM 2 VIEWS [...] ABDOMEN AND PELVIS WITHOUT CONTRAS T 05/23/2015 [facility] [address] Center DATE: 05/23/2015 at [...] spine with and w ithout contrast. 05/16/2015 [facility] MRI Center DATE: 05/16/2015. INDICATION: [...] BILATERAL LOWER EXTREMITY VENOUS DOPPL ER 05/15/2015 [facility] Doppler Bilat Center DATE: 05/15/2015. INDICATION: Lower [...] EXAM: FLUOROSCOPY MODIFIED BARIUM SWALLOW 0 05/14/2015 [facility] video DX Center DATE: 05/14/2015 at 1117 [...] penetration and silent aspiration observed during swallow. [place] barium with spoon: Th e oral and [...] DX EXAM: XR ABDOMEN 1 VIEW 05/13/2015 [facility] DATE: 05/13/2014 at 1425 hours. INDICATION: Tube placement/removal/reposition. ADDITIONAL INFORMATION: None. COMPARISON: 05/12/2014 at 1928 hours. TECHNIQUE: Limited radiogra phy of the abdomen performed. One frontal radiograph provided for interpretation. FINDINGS: Transesophageal feeding tube with guidewire has its tip in the pyloroduodenal junction. ENGLISH AS A SECOND LANGUAGE TEACHER shunt is unchanged. No other significant changes. IMPRESSION: 1. Tube positions as above. Interpreted by Brian Jordan MD. Abdomen AP DX Exam: Abdomen x-ray. 05/12/2015 [facility] dical Center DATE: 05/12/2015. INDICATIONS: Tube placement. FINDINGS: IMPRESSION: A Dobbhoff tube is seen with tip overlying the second portion of the duodenum. Brain w/wo contrast EXAMINATION: MRI brain with and without contrast. 05/11/2015 [facility] DATE: 05/11/2015. INDICATION: Meningiomatosis. Weakness. DISCUSSION: Multiplanar [...] CT EXAMINATION: CT head without contrast. 12/2015 [facility] DATE: 05/11/2015. INDICATION: Weakness. DISCUSSION: Noncontrast images [...] HIP 2 VIEWS AND AP PELVIS 2015 [facility] DATE: May 10, 2015 01:25:00 PM INDICATION: [...] of the pubic symphysis or sacroiliac joints. ENGLISH AS A SECOND LANGUAGE TEACHER shunt tubing overlies the pelvis. IMPRESSION: No bony abnormality identified. Hip 2 views DX EXAM: BILATERAL HIP 2 VIEWS AND AP PELVIS 2015 [facility] DATE: May 10, 2015 01:25:00 PM INDICATION: [...] of the pubic symphysis or sacroiliac joints. ENGLISH AS A SECOND LANGUAGE TEACHER shunt tubing overlies the pelvis. IMPRESSION: No bony abnormality identified. Consultation Notes No Data Provided for This Section Discharge Summaries No Data Provided for This Section History and Physicals No Data Provided for This Section Vital Signs Vital Sign Value Date Comments Source Systolic (mm Hg) 114 04/19/2020 [facility] dical Center Diastolic (mm Hg) 68 04/19/2020 [facility] Center Respitory Rate 17 04/19/2020 [facility] Center Respitory Rate 18 04/19/2020 [facility] Systolic (mm Hg) 132 04/19/2020 [facility] dical Center Diastolic (mm Hg) 73 04/19/2020 [facility] Respitory Rate 18 04/19/2020 [facility] Systolic (mm Hg) 100 04/19/2020 [facility] dical [place] Diastolic (mm Hg) 65 04/19/2020 [facility] Heart Rate 97 04/18/2020 [facility] Center Height 157.48 cm 04/16/2020 [facility] Center Height 157.48 cm 04/16/2020 [facility] [...] dical Center Diastolic (mm Hg) 55 04/07/2020 [facility] edical Center Heart Rate 77 [facility] Height 170.18 cm 04/04/[facility] Weight 79.545 04/04/2020 [facility] BMI Calculated 27.47 04/04/2020 [facility] Respitory Rate 17 12/09/2019 [facility] Systolic (mm Hg) 96 12/09/2019 [facility] dical Center Diastolic (mm Hg) 59 12/09/2019 [facility] edical Center Respitory Rate 17 12/09/2019 [facility] mesha Center Systolic (mm Hg) 97 12/09/2019 [facility] dical Center Diastolic (mm Hg) 56 12/09/2019 [facility] edical Center Respitory Rate 21 12/09/2019 [facility] mesha Center Systolic (mm Hg) 127 12/09/2019 [facility] dical Center Diastolic (mm Hg) 70 12/09/2019 [facility] edical Center Temperature Oral (F) 97.8 F 12/06/2019 [facility] Temperature Oral (F) 98 F 12/06/2019 [facility] Height 167.64 cm 12/06/2019 [facility] [place] BMI Calculated 22.64 12/06/2019 [facility] Weight 63.636 12/06/2019 [facility] [place] Heart Rate 73 12/06/2019 [facility] Systolic (mm Hg) 100 07/06/2015 [facility] dical Center Diastolic (mm Hg) 59 07/06/2015 [facility] edical Center Respitory Rate 18 07/06/2015 [facility] mesha Center Respitory Rate 18 07/06/2015 [facility] mesha Center Systolic (mm Hg) 104 07/06/2015 [facility] dical Center Diastolic (mm Hg) 70 07/06/2015 [facility] Temperature Oral (F) 97.4 F 07/05/2015 [facility] Systolic (mm Hg) 105 07/05/2015 [facility] dical Center Diastolic (mm Hg) 60 07/05/2015 [facility] edical Center Temperature Oral (F) 97.8 F 07/05/2015 [facility] Center Respitory Rate 18 07/05/2015 [facility] mesha Center Heart Rate 84 07/05/2015 [facility] Heart Rate 73 05/28/2015 [facility] Temperature Oral (F) 99.5 F 05/28/2015 [facility] Center Systolic (mm Hg) 93 05/28/2015 [facility] dical Center Diastolic (mm Hg) 55 05/28/2015 [facility] edical Center Respitory Rate 18 05/28/2015 [facility] Heart Rate 52 05/28/2015 [facility] Systolic (mm Hg) 101 05/28/2015 [facility] dicde Center Diastolic (mm Hg) 54 05/28/2015 [facility] Respitory Rate 17 05/28/2015 [facility] Temperature Oral (F) 97.4 F 05/28/2015 [facility] Respitory Rate 18 05/28/2015 [facility] Heart Rate 54 05/28/2015 [facility] Center Systolic (mm Hg) 98 05/28/2015 [facility] Di[facility] (mm Hg) 59 05/28/2015 [facility] Temperature Oral (F) 97.9 F 05/28/2015 [facility] Weight 76.818 05/10/2015 [facility] Height 165.1 cm 05/09/2015 [facility] Weight 81.818 05/09/2015 [facility] BMI Calculated 30.02 05/09/2015 [facility] Encounters Location Location Encounter Encounter Reason Attending ADM DC Stat us Source Details Type Number For Provider Date Date Visit [facility] [id number] Anmol 05/09 05/28 [facility] Kaci /2015 [facility] EC [id number] Vilma 07/04 07/05 [facility] [place] /2015 [facility] Outpatient [id number] David 07/25 07/26 [facility] [place] [facility] Inpatient [id number] Ciarra 12/05 12/09 [facility] Thuan /2019 [facility] Outpatient [id number] David 01/17 01/18 [facility] Radiation [place] /2019 Medical [facility] [place] ([facility] Day Surgery [id number] Titus 04/06 04/07 [facility] Julia /2019 [facility] Inpatient [id number] Carmencita Kraush 04/10 04/19 [facility] /2019 [facility] Procedures Procedure Code Date Perfomer Comments Source Arterial 08628 04/15/2020 [facility] catheterization or [facility] cannulation for Center sampling, monitoring or transfusion (separate procedure); percutaneous Intubation, 84152 04/15/2020 [facility] endotracheal, Medical emergency procedure Cente r Bronchoscopy, rigid 45968 04/15/2020 [place] or flexible, Medical including Center fluoroscopic guidance, when performed; with bronchial alveolar lavage Craniotomy [id number] 05/04/1999 [facility] Biopsy of breast [id number] [facility] Creation of ENGLISH AS A SECOND LANGUAGE TEACHER shunt [id number] [facility] Excision of ovary [id number] [facility] Stereotactic focused [id number] [facility] gamma radiosurgery of Med ical cerebrum Center Assessment and Plan Assessment and Plan Date Source Extracted from:Title: Progress Note 04/19/2020 [facility] Author: Tavia Mckeon (Fellow) Date: 04/19/20 Ms. Winston is a 44 yo F w/ a PMHx of diffuse, atypicalrecurrent meningiomas S/Pcraniotomy and ENGLISH AS A SECOND LANGUAGE TEACHER shunt and gamma knife radiosurgery 04/06,congenital blindness, [...] hrs PRN. Constipation: - Recommend bisacodyl 10mg MO daily PRN. Spiritual support: - Saw patient with Used Car Salesperson today. Thank you for the opportunity to parti cipate in the care of this patient.For any questions or concerns, please page us via the page plastic press operator or via the pager below. Tavia Mckeon M.D.| #[phone] Palliative Care Fellow Division of Geriatric and Palliative Medicine Department of Internal Medicine [employer]| [phone] #[phone] Conduit Worker| #[phone] Division of Gynecologic Oncology Department of Obstetrics, Gynecology and Reproductive Scien [facility] Office and Answering Service | Pager [phone] | Acute hypoxemic respiratory failure(J96.01) Agitation(R45.1) Altered [...] of diff use, atypicalrecurrent meningiomas S/Pcraniotomy and ENGLISH AS A SECOND LANGUAGE TEACHER shunt and gamma knife radiosurgery 04/06,congenital blindness, [...] concerns, please page us via the page plastic press operator or via the pager below. Colette Kennedy PA-C Supportive Medicine Physician [place] Supportive Medicine Pager: #[phone] Extracted from:Title: MICU History and Physical Author: Arcadio Barcenas Date: 04/10/20 NEURO: # hx of recurrent meningiomas s/p ENGLISH AS A SECOND LANGUAGE TEACHER marie nt, craniotomy, and gamma knife radiosurgery [...] Extracted from:Title: Supportive Medicine Consult Note 04/16 [facility] Author: Colette Kennedy Date: 04/15/20 Ms. Winston is a 44 yo F w/ a PMHx of diff use, atypicalrecurrent meningiomas S/Pcraniotomy and ENGLISH AS A SECOND LANGUAGE TEACHER shunt and gamma knife radiosurgery 04/06,congenital blindness, [...] concerns, please page us via the page plastic press operator or via the pager below. 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
--- OUTSIDE RECORDS SUMMARY | 2020-06-13 12:34 | XMS REPORT | Continuity of Care Document ---
:1975 Author Organization [facility] t Address [address] [place] [address] Care Team Providers Name Role Phone [facility] Attending Clinician Agata Lara Attending Clinician [...] Clinician Doctor Unassigned, Name Attending Clinician Unavailable [facility] Admitting Clinician Maru Admitting Clinician Lurdes Larose Admitting Clinician Sam Frost Admitting Clinician Enio Clemons Admitting Clinician Problems Condition Condition Condition Status Onset Resolution Last Treating Co mments Source Name Details Category Date Date Treatment Clinician Date RESP Diagnosis Active 2019-052020-04-25 Mem oria DISTRESS 2-08 21:43:00 l RESP 00:00: Matty DISTRESS 00 Active 04/10/2020 [facility] [place] [facility] MENINGIOMA Diagnosis Active 2019-052020-04-11 Memoria D32.0 0 12:13:00 l 00:00: [place] MENINGIOMA 00 D32.0 Active 02/28/2020 [facility] [place] [facility] D32.0 Diagnosis Active 2020-01-19 Mem oria 01-10 13:08:00 l D32.0 00:00: [place] 00 Active 01/11/2020 [facility] [place] [facility] WORSENING Diagnosis Active 2019-12-07 Memoria BRAIN 12-04 12:22:00 l TUMOR 00:00: Matty WORSENING 00 BRAIN TUMOR Active 12/05/2019 [facility] [place] [facility] BRAIN Diagnosis Active 2015-07-05 Mem oria SHUNT NOT 07-04 16:24:00 l DRAINING BRAIN 00:00: Matty SHUNT NOT 00 DRAINING Active 07/05/2015 [facility] MENINGIOMA Diagnosis Active 2015-07-26 Memoria CA 2 13:55:00 l 00:00: Matty MENINGIOMA 00 CA Active [facility] PAIN Diagnosis Active 2015-05-09 Mem oria 05-09 15:08:00 l PAIN 00:00: [place] 00 Active 05/09/2015 [facility] G40.901 Diagnosis Active 2015-05-09 Me moria -06 15:09:00 l G40.901 00:00: [place] 00 Active 05/09/2015 [facility] G40.219 Diagnosis Active 2015-08-22 Me moria 06 09:47:00 l G40.219 00:00: [place] 00 Active 05/09/2015 [facility] Gastroesop Problem Resolve 2020-04-21 Memoria hageal d 22:41:27 l reflux Matty disease Gastroesop (disorder) hageal reflux disease (disorder) Resolved Problem 04/21/2020 [facility] Blindness Problem Resolve 2020-04-21 M emoria - both d 22:41:27 l eyes [place] (disorder) Blindness - both eyes (disorder) Resolved Problem 04/21/2020 [facility] Blood clot Problem Resolve 2015-07-29 Memoria (morpholog d 00:31:29 l ic Blood [place] abnormalit clot y) (morpholog ic abnormalit y) Resolved Problem 07/29/2015 [facility] Intracrani Problem Resolve 2020-04-21 Memoria al tumor d 22:41:27 l (disorder) Parveen n Intracrani al tumor (disorder) Resolved Problem 04/21/2020 [facility] Cyst of Problem Resolve 2020-04-21 Mem oria breast d 22:41:27 l (disorder) Cyst of Her bonilla breast (disorder) Resolved Problem 04/21/2020 [facility] Epilepsy Problem Resolve 2020-04-21 Me moria (disorder) d 22:41:27 l Epilepsy Parveen n (disorder) Resolved Problem 04/21/2020 [facility] Hearing Problem Resolve 2020-04-21 Mem oria loss d 22:41:27 l (finding) Hearing Herm naye loss (finding) Resolved Problem 04/21/2020 [facility] Hypothyroi Problem Resolve 2020-04-21 Memoria dism d 22:41:27 l (disorder) Parveen n Hypothyroi dism (disorder) Resolved Problem 04/21/2020 [facility] Cyst of Problem Resolve 2020-04-21 Mem oria ovary d 22:41:27 l (disorder) Cyst of Her [place] ovary (disorder) Resolved Problem 04/21/2020 [facility] Seizure Problem Resolve 2020-04-21 Mem oria (finding) d 22:41:27 l Seizure Matty (finding) Resolved Problem 04/21/2020 [facility] Blindness Problem Active 2020-04-21 Me moria AND/OR 22:41:27 l vision Matty impairment Blindness level AND/OR (disorder) vision impairment level (disorder) Active Problem 04/21/2020 [facility] Mood Problem Active 2020-04-21 Memor ia disorder 22:41:27 l (disorder) Mood Parveen n disorder (disorder) Active Problem 04/21/2020 [facility] Neoplasm Problem Active 2020-04-21 Mem oria of 22:41:27 l uncertain Neoplasm Her bonilla behavior of of uncertain meninges behavior (disorder) of meninges (disorder) Active Problem 04/21/2020 [facility] Panhypopit Problem Active 2020-04-21 M emoria uitarism 22:41:27 l (disorder) Parveen n Panhypopit uitarism (disorder) Active Problem 04/21/2020 [facility] Seizure Problem Active 2020-04-21 [facility] disorder 22:41:27 l (disorder) Seizure Her bonilla disorder (disorder) Active Problem 04/21/2020 [facility] EPILEPSY, Diagnosis Active 2015-05-09 Memoria UNSP, NOT 15:09:00 l INTRACTABL Parveen n E, WITH ST EPILEPSY, UNSP, NOT INTRACTABL E, WITH ST Active [facility] 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 Memoria SYMPTC EPI 09:47:00 l W CMPLX Matty PART SEIZ, 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, Active [facility] NEOPLASM Diagnosis Active 2015-08-22 M emoria OF 09:47:00 l UNSPECIFIE NEOPLASM He rmann D BEHAVIOR OF OF BRAI UNSPECIFIE D BEHAVIOR OF BRAI Active [facility] BENIGN Diagnosis Active 2015-07-26 Mem oria NEOPLASM 13:55:00 l OF BENIGN [place] 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 [facility] CEREBRAL Diagnosis Active 2019-12-07 M emoria EDEMA 12:22:00 l CEREBRAL Parveen n EDEMA Active [facility] SEVERE Diagnosis Active 2020-04-25 Mem oria SEPSIS 21:43:00 l WITH SEVERE [place] SEPTIC SEPSIS SHOCK WITH SEPTIC SHOCK Active [facility] History of History of Problem Resolve Univers [...] it y of n of n of [place] tympanic tympanic Physic i membrane membrane ans Tinnitus Tinnitus Problem Active Unive rs ity of [place] Physici ans Urinary Urinary Problem Active Univers retention retention ity of with with [place] incomplete incomplete Ph ysici bladder bladder ans emptying emptying Hearing Hearing Problem Active Univers loss loss ity of [place] Physici ans Chronic Chronic Problem Active Univers tension-ty tension-ty it y of pe pe [place] headache, headache, Phys ici intractabl intractabl an s e e 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 ity of loss, loss, [place] bilateral bilateral Phys ici ans Low-set Low-set Problem Active Univers ears ears ity of [place] Physici ans Diabetes Diabetes Problem Active Unive rs insipidus insipidus ity of [place] Physic ans Localizati Localizati Problem Active U nivers on-related on-related it [place] of symptom[place] c epilepsy 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, seizures, intractabl intractabl e, without e, without status status epilepticu epilepticu s s Brain Brain Problem Active Univers tumor tumor ity of [place] Physici ans Sciatica Sciatica Problem Active Unive rs of left of left ity of side side [place] Physici ans Adrenal Adrenal Problem Active Univers insufficie insufficie it y of ncy [facility] Physici ans Vitamin D Vitamin D Problem Active Uni vers insufficie insufficie it y of ncy [facility] Physici ans Hypothyroi Hypothyroi Problem Active U nivers dism dism ity of [place] Physici ans History of Past Illness Condition Condition Condition Status Onset Resolution Last Treating Co mments Source Name Details Category Date Date Treatment Clinician Date Discharge Problem 2015-07-08 2015-07-08 Memoria Diagnosis: 07-04 06:30:00 06:30:00 l Vomiting, 06:00: [place] unspecifie Discharge 00 d Diagnosis: Vomiting, unspecifie d 07/05/2015 07/08/2015 [facility] [place] [facility] Discharge Problem 2015-07-08 2015-07-08 Memoria Diagnosis: 07-04 06:30:00 06:30:00 l Vomiting 06:00: Matty in adult Discharge 00 Diagnosis: Vomiting in adult 6 07/08/2015 [facility] [place] [facility] Allergies, Adverse Reactions, Alerts Allergy Allergy Status Severity Reaction(s) Onset Inactive Treating Comm ents Source Name Type Date Date Clinician seafood seafood Active Memoria l Matty iodine iodine Active Memoria topical topical l [place] penicill penicill Active Memori a ins ins l Matty Iodine Allergy Active Univers REMI to drug ity of (finding [place] ) Physici ans Penicill Allergy Active Univers ins to drug ity of (finding [place] ) Physici ans Family History Family Member Diagnosis Comments Start Date Stop Date Source Mother Family history of Univers ity of hypertension [place] Physic ians Mother Family history of Univers ity of thyroid disease [place] Phy s[facility] Mother Family history of Univers ity of diabetes mellitus [place] P hysicians Unknown Family Family history of Family History University of Member Heart Disease [place] Physi cians Social History Social Habit Start Date Stop Date Quantity Comments Source Social History 2015-05-09 2015-05-09 [facility] subha 23:46:54 23:46:54 Smoking Status Start Date Stop Date Source [facility] smoked [facility]finding[facility]ations Ordered Filled Start Stop Current Ordering Indication Dosage Frequency Signature Comments Components Source Medication Medication Date Date Medication? Clinician (SIG) Name Name morphine 4 2019-05 Yes 4 mg, IVP, M emoria mg/mL-NaCl 2-17 Q4H, # 60 l 0.9% 15:59: mL, 0 [place] preservativ 00 Refill(s) e-free intravenous solution LORazepam [...] # l mg/mL 15:59: 30 mL, 0 [place] intravenous 00 Refill(s) solution Acetaminoph 2019-05 Yes 650 mg = 2 Memoria en 325 MG 2-17 tab, GT, l Oral Tablet 15:59: Q6H, # 90 H ermann 00 tab, 0 Refill(s) bisacodyl 2019-05 Yes 10 mg = 1 Mem oria 10 mg 2-17 supp, ID, l rectal 15:59: Daily, PRN Lanny nn [...] Notes: Memoria 2-14 (Same l 22:57: as:MORPhin [place] 00 e Sulfate) POLYETHYLEN 2019-05 No Notes: [facility] E GLYCOL 2-14 Dissolve l 3350 22:57: in 8 oz of water or juice. (Same as: Miralax) Lorazepam 2019-05 No Notes: Memori a 2-14 (Same as: l 22:57: Ativan) Ondansetron 2019-05 No Notes: [facility] 2-14 (Same as: l 22:57: Zofran) MEDICATION WASTE Product Size: 4 mg Product Wasted: ___ mg Acetaminoph 2019-05 No Notes: Max Memoria en 2-14 acetaminop l 22:57: hen = 4000 Matty 00 mg/day (4 gm/day). (Same as: Tylenol) ocular 2019-05 No Notes: Memoria lubricant 2-14 (Same as: l 22:57: Lacri-Lube 00 , Puralube, Duratears Naturale, Artificial Tears, and Tears Again ) Dexamethaso 2019-05 No Notes: [facility] ne 2-14 Give with l 19:00: food. (Same As: Decadron) chlorhexidi 2019-05 No Notes: [facility] ne 2-13 (Same As: l gluconate 15:00: Peridex) Herm naye 1.2 MG/ML 00 Mouthwash Calcium 2019-05 No 1,000 mL, Memor ia Chloride 2-13 1,000 l 0.0014 13:50: ml/hr, [place] MEQ/ML / 00 Infuse Potassium Over: 1 Chloride hr, Route: 0.004 IV, 1,000, MEQ/ML / Drug form: Sodium INJ, ONCE, Chloride Priority: 0.103 STAT, MEQ/ML / Dosing Sodium Weight 70 Lactate kg, Start 0.028 date: MEQ/ML 04/15/20 Injectable 7:50:00 Solution SERVICE [employer]TER CASHIER, Stop date: 04/15/20 7:50:00 SERVICE COUNTER CASHIER, 0 Vancomycin 2019-05 mg: Me moria 2-13 infuse l 11:00: over 2.5 [place] 00 hours For adult patients only: Round to nearest 250 mg per Medical Staff approval MEDICATION WASTE Product Size: 1000 mg Product Wasted: ___ mg Versed 2019-05 No Notes: Memoria 2-13 (Same as: l 09:40: Versed) Matty MEDICATION WASTE Product Size: 2 mg Product Wasted: ___ mg Calcium 2019-05 No 500 mL, Memoria Chloride 2-13 500 ml/hr, l 0.0014 06:38: Infuse Matty MEQ/ML / 00 Over: 1 Potassium hr, Route: Chloride IV, 500, 0.004 Drug form: MEQ/ML / INJ, ONCE, Sodium Priority: Chloride STAT, 0.103 Dosing MEQ/ML / Weight 70 Sodium kg, Start Lactate date: 004/15/20 MEQ/ML 0:38:00 Injectable SERVICE COUNTER CASHIER, Stop Solution date: 04/15/20 0:38:00 SERVICE COUNTER CASHIER, 0 ocular 2019-05 No Notes: Memoria lubricant 2-13 (Same as: l 06:00: Lacri-Lube Matty 00 , Puralube, Duratears Naturale, Artificial Tears, and Tears Again ) Versed 2019-05 No Notes: Memoria 2-13 (Same as: l 03:51: Versed) [place] MEDICATION WASTE Product Size: 2 mg Product Wasted: ___ mg chlorhexidi 2019-05 No Notes: [facility] ne 2-13 (Same As: l gluconate 03:39: Peridex) Herm naye 1.2 MG/ML 00 Mouthwash Midazolam 2019-05 No Notes: Memori a 2-13 (Same as: l 03:37: Versed) Fentanyl 2019-05 No 1,000 Memoria 2-13 microgram, l 03:29: 20 mL, [place] 00 Rate: Titrate, Start Dose: 50 microgram/ hr, Titration: 25 microgram/ hour every 15 minutes, Goal(s): RASS -1, Max Dose: 300 microgram/ hr, Route: IV, Dosing Weight 70 kg, Total Volume: 20, Start date: 04/14/20 21:29:00 SERVICE COUNTER CASHIER, Durat... meropenem 2019-05 No Notes: Memori a 2-13 Same as l 03:00: Merrem Rocuronium 2019-05 No 50 mg, Memor ia 2-13 Route: IV, l 02:44: ONCE, Dosing Weight 70, kg, Start date: 04/14/20 20:44:00 [employer]ICE [employer]TER C[employer]IER, Stop date: 04/14/20 20:44:00 [employer]TER [employer]IER Fentanyl 2019-05 No 50 Memoria 2-13 microgram, l 02:44: Route: IV, ONCE, Dosing Weight 70, kg, Start date: 04/14/20 20:44:00 SERVICE COUNTER C[employer]IER, Stop date: 04/14/20 20:44:00 [employer]IER Etomidate 2019-05 No 10 mg, Memori a 2-13 Route: IV, l 02:22: ONCE, Dosing Weight 70, kg, Start date: 04/14/20 20:22:00 SERVICE COUNTER CASHIER, Stop date: 04/14/20 20:22:00 [employer]IER Fentanyl 2019-05 No 100 Memoria 2-13 microgram, l 02:22: Route: IV, ONCE, Dosing Weight 70, kg, Start date: 04/14/20 20:22:00 SERVICE COUNTER CASHIER, Stop date: 04/14/20 20:22:00 [employer]ICE [employer]TER C[employer]IER Midazolam 2019-05 No 2 mg, Memoria 2-13 Route: l 02:22: IVP, ONCE, Dosing Weight 70, kg, Start date: 04/14/20 20:22:00 SERVICE COUNTER CASHIER, Stop date: 04/14/20 20:22:00 [employer]IER Dopamine 2019-05 No Notes: Memoria 2-13 (Same as: l 02:17: Intropin) Administer by either central venous catheter or peripheral ly-inserte d central catheter (PICC) line. Final conc = 3.2 mg/ml. Premix solution. Vancomycin 2019-05 No 2000 mg: Me moria 2-13 infuse l 02:02: over 2.5 Matty 00 hours Norepinephr 2019-05 No Notes: [facility] ine 2-13 Same as: l 01:55: Levophed. Administer by either central venous catheter or peripheral ly-inserte d central catheter (PICC) line. Racepinephr 2019-05 No Notes: [facility] ine 22.5 2-13 (racepinep l MG/ML 01:00: hrine Matty Inhalant 00 *2.25% inh Solution 0.5ml SOLN) (Same as:S2) Dexamethaso 2019-05 No Notes: [facility] ne 2-12 Give with l 22:00: food. Dexamethaso 2019-05 No Notes: [facility] ne 2-12 Concentrat l 19:00: ion: [place] 00 4mg/ml lamotrigine 2019-05 No Notes: [facility] [...] s with feeding tube less than 14 Azeri (Dobhoff, J-tube etc) and pediatric and patients. Cleocin HCl 2019-05 No Notes: [facility] 2-12 (clindamyc l 12:00: in 150 [place] 00 mg/1 ml (600 mg/4 ml VL) INJ) (Same As: Cleocin) Clindamycin 2019-05 No 300 mg, Mem oria 2-12 Route: l 11:00: IVPB, ABXQ8H, Dosing Weight 70, kg, Start date: 04/14/20 5:00:00 [employer]ICE [employer]TER C[employer]IER, Duration: 7 day, Stop date: 04/20/20 21:00:00 SERVICE COUNTER CASHIER, ABX Indication : Bacteremia Potassium 2019-05 No Notes: Memori a Chloride 2-12 (Same as: l 1.33 MEQ/ML 10:00: Potassium H ermann Oral 00 Chloride) Solution Keppra 2019-05 No 500 mg, Memoria 2-12 Route: PO, l 08:32: ONCE, Dosing Weight 70, kg, Start date: 04/14/20 2:32:00 SERVICE COUNTER CASHIER, Stop date: 04/14/20 2:32:00 SERVICE [employer]TER C[employer]IER Ativan 2019-05 No Notes: Memoria 2-12 (Same as: l 07:50: Ativan) Levetiracet 2019-05 No Notes: [facility] am 1000 MG -12 (Same l Oral Tablet 03:00: as:Keppra) Albuterol 2019-05 No Notes: Memori a 0.833 MG/ML - (Same as: l / 02:55: Duoneb) Ipratropium 00 [place] 0.167 MG/ML Inhalant Solution [DuoNeb] Sodium 2019-05 No Notes: SEE Memor ia Chloride 3% -12 RT l inhalation 02:55: DOCUMENTAT H ermann solution 00 ION (Same as: Hypertonic Saline 3%, Inhalation ) Ativan 2019-05 No Notes: Memoria 2-12 (Same as: l 02:48: Ativan) heparin 2019-05 No Notes: Memoria sodium, 2-11 porcine l porcine 22:00: heparin [place] 2500 UNT/ML 00 Injectable Solution ondansetron 2019-05 No Route: IV, Memoria (ANES) 2-11 Drug form: l 17:04: INJ, ONCE, Stop date: 04/13/20 11:04:00 [employer]IER sugammadex 2019-05 No Route: IV, M emoria (ANES) 2- Drug form: l 17:04: SOLN, 00 ONCE, Stop date: 04/13/20 11:04:00 [employer]IER Hydromorpho 2019-05 No Notes: [facility] ne [...] 2-11 Drug form: l 16:58: INJ, ONCE, Stop date: 04/13/20 10:58:00 [employer]ICE [employer] C[employer]IER midazolam 2019-05 No Route: IV, Me moria (ANES) 2-11 Drug form: l 16:53: SOLN, Matty 00 ONCE, Stop date: 04/13/20 10:53:00 SERVICE [employer]TER C[employer]IER propofol 2019-05 No Route: IV, Mem oria (ANES) 2- Drug form: l 16:53: INJ, ONCE, [place] 00 Stop date: 04/13/20 10:53:00 SERVICE [employer]TER C[employer]IER rocuronium 2019-05 No Route: IV, M emoria (ANES) 2- Drug form: l 16:53: INJ, ONCE, Stop date: 04/13/20 10:53:00 SERVICE COUNTER CASHIER fentaNYL 2019-05 No Route: IV, Mem oria (ANES) 2- Drug form: l 16:53: INJ, ONCE, Stop date: 04/13/20 10:53:00 SERVICE COUNTER CASHIER Lactated 2019-05 No Route: IV, Mem oria Ringers - Total l Injection 16:04: Volume: Lanny nn IV (ANES) 00 1,000, 1000 mL Start date: 04/13/20 10:04:00 SERVICE COUNTER CASHIER, Stop date: 04/13/20 11:04:00 SERVICE COUNTER C[employer]IER Cefazolin 2019-05 No Notes: Memori a 2-11 (Same as l 16:00: Ancef) Matty PHOS-NaK 2019-05 No Notes: Memoria 2-11 (Same as: l 16:00: Phos-NaK) Each 1.5 gm pkt has 250mg phosphorou s. Mix w/2.5oz water and stir. Aspirin 81 2019-05 No Notes: Memor ia MG Enteric 2-11 Take with l Coated 15:00: food. [place] Tablet Dexamethaso 2019-05 No Notes: [facility] ne 2-10 Concentrat l 18:00: ion: [place] 00 4mg/ml Ceftriaxone 2019-05 No Notes: [facility] 2-10 (Same As: l 16:00: Rocephin). Matty 00 Use with 100 mL NS and infuse over 30 min MEDICATION WASTE Product Size: 1000 mg Product Wasted: ___ mg Aspirin 81 2019-05 No Notes: Do Me moria MG Enteric 2-10 not crush l Coated 15:00: or chew. [place] Tablet 00 (Same As: Ecotrin) Plavix 2019-05 No 75 mg, Memoria 2-10 Route: PO, l 15:00: Drug form: Matty 00 TAB, Daily, Dosing Weight 70, kg, Start date: 04/12/20 9:00:00 SERVICE COUNTER CASHIER, Duration: 30 day, Stop date: 05/11/20 9:00:00 SERVICE COUNTER CASHIER sodium 2019-05 No Notes: Memoria phosphate 2-10 Infuse l 11:31: over 4 [place] 00 hour. Do not infuse phosphorou s concurrent ly in the same line as TPN or IVF that contains calcium. For double lumen central lines, phosphorou s may be infused in a separate lumen from TPN. atorvastati 2019-05 No Notes: [facility] n 2-10 (Same as: l 03:00: Lipitor) [place] Famotidine 2019-05 No Notes: Memor ia 2-10 (Same as: l 03:00: Pepcid) Matty Calcium 2019-05 No 500 mL, Memoria Chloride 2-09 500 ml/hr, l 0.0014 19:47: Infuse Matty MEQ/ML / 00 Over: 1 Potassium hr, Route: Chloride IV, 500, 0.004 Drug form: MEQ/ML / INJ, ONCE, Sodium Dosing Chloride Weight 70 0.103 kg, Start MEQ/ML / date: Sodium 04/11/20 Lactate 13:47:00 0.028 SERVICE COUNTER CASHIER, Stop MEQ/ML date: Injectable 04/11/20 Solution 13:47:00 SERVICE COUNTER CASHIER, 0 Calcium 2019-05 No 250 mL, Memoria Chloride 2-09 250 ml/hr, l 0.0014 19:11: Infuse [place] MEQ/ML / 00 Over: 1 Potassium hr, Route: Chloride IV, 250, 0.004 Drug form: MEQ/ML / INJ, ONCE, Sodium Priority: Chloride STAT, 0.103 Dosing MEQ/ML / Weight 70 Sodium kg, Start Lactate date: 0.028 04/11/20 MEQ/ML 13:11:00 Injectable SERVICE COUNTER CASHIER, Stop Solution date: 04/11/20 13:11:00 SERVICE COUNTER CASHIER, 0 Heparin 60 2019-05 No Route: Memor ia unit/kg 2-09 IVP, PRN, l Bolus 17:02: 3,500 Matty (Heparin 00 unit, 3.5 Dosing mL, Drug Weight) form: INJ, PRN, Heparin Protocol, Start date: 04/11/20 11:02:00 SERVICE COUNTER CASHIER Stop date: 05/11/20 11:01:00 SERVICE COUNTER CASHIER, 30 day, 0 Heparin 30 2019-05 No Route: Memor ia unit/kg 2-09 IVP, PRN, l Bolus 17:02: 1,700 [place] (Heparin 00 unit, 1.7 Dosing mL, Drug Weight) form: INJ, PRN, Heparin Protocol, Start date: 04/11/20 11:02:00 SERVICE COUNTER CASHIER Stop date: 05/11/20 11:01:00 SERVICE COUNTER CASHIER, 30 day, 0 heparin 2019-05 No Notes: Memoria additive 2- Total l 25,000 unit 17:02: Concentrat Matty [12 ion = 50 unit/kg/hr] unit/ ml + Premix Total Diluent volume = Sodium 500 ml Chloride Send Med 0.45% 500 Request 2 mL hours prior to next bag Aspirin 2019-05 No Notes: Memoria 2- Take with l 16:34: food. [place] 00 PHOS-NaK 2019-05 No 1 packet, [facility] 2- Route: PO, l 14:00: Dosing Mtaty 00 Weight 70, kg, Q8H, Start date: 04/11/20 8:00:00 SERVICE COUNTER CASHIER, Duration: 2 day, Stop date: 04/13/20 0:00:00 SERVICE COUNTER CASHIER Fentanyl 2019-05 No Notes: Memoria 2- (Same as: l 13:55: Sublimaze) Matty 00 Preservat anshu free. Calcium 2019-05 No 250 mL, Memoria Chloride 2-09 250 ml/hr, l 0.0014 13:52: Infuse Matty MEQ/ML / 00 Over: 1 Potassium hr, Route: Chloride IV, 250, 0.004 Drug form: MEQ/ML / INJ, ONCE, Sodium Priority: Chloride STAT, 0.103 Dosing MEQ/ML / Weight 70 Sodium kg, Start Lactate date: 0.028 04/11/20 MEQ/ML 7:52:00 Injectable SERVICE COUNTER CASHIER, Stop Solution date: 04/11/20 7:52:00 SERVICE COUNTER CASHIER, 0 Calcium 2019- No 250 mL, Memoria Chloride 2-09 250 ml/hr, l 0.0014 13:51: Infuse Matty MEQ/ML / 00 Over: 1 Potassium hr, Route: Chloride IV, ONCE, 0.004 Priority: MEQ/ML / STAT, Sodium Dosing Chloride Weight 70 0.103 kg, Start MEQ/ML / date: Sodium 04/11/20 Lactate 7:51:00 0.028 SERVICE COUNTER CASHIER, Stop MEQ/ML date: Injectable 04/11/20 Solution 7:51:00 SERVICE COUNTER C[employer]IER Fentanyl 2019-05 No 25 Memoria 2-09 microgram, l 13:43: Route: IV, Matty 00 Q6H, Dosing Weight 70, kg, PRN Agitation, Start date: 04/11/20 7:43:00 SERVICE COUNTER CASHIER, Duration: 30 day, Stop date: 05/11/20 7:42:00 SERVICE COUNTER CASHIER sodium 2019-05 No Notes: Memoria phosphate 2-09 Infuse l 13:11: over 4 Matty 00 hour. Do not infuse phosphorou s concurrent ly in the same line as TPN or IVF that contains calcium. For double lumen central lines, phosphorou s may be infused in a separate lumen from TPN. Seroquel 2019-05 No Notes: Memoria 2-09 (Same as: l 08:45: SEROquel) Matty 00 Vancomycin 2019-05 No 1.2 gm, [facility] 2-09 Route: IV, l 03:00: Q12H, Matty 00 Dosing Weight 79.545, kg, Start date: 04/10/20 21:00:00 SERVICE COUNTER CASHIER, Duration: 7 day, Stop date: 04/17/20 9:00:00 SERVICE COUNTER CASHIER, ABX Indication : Pneumonia Vancomycin 2019-05 No 2000 mg: Me moria 2-09 infuse l 02:00: over 2.5 Matty 00 hours Famotidine 2019-05 No Notes: Memor ia 2-08 (Same as: l 23:00: Pepcid) Matty 00 Can be dilute in 5-10cc NS IVP: Slow IV push over at least 2 minutes. Calcium 2019-05 No 1,000 mL, Memor ia Chloride 2-08 1000 l 0.0014 22:55: ml/hr, Matty MEQ/ML / 00 Infuse Potassium Over: 1 Chloride hr, Route: 0.004 IV, 1,000, MEQ/ML / Drug form: Sodium INJ, ONCE, Chloride Priority: 0.103 STAT, MEQ/ML / Dosing Sodium Weight 70 Lactate kg, Start 0.028 date: MEQ/ML 04/10/20 Injectable 16:55:00 Solution SERVICE COUNTER CASHIER, Stop date: 04/10/20 16:55:00 SERVICE COUNTER CASHIER, 0 Calcium 2019-05 No 500 mL, Memoria Chloride 2-08 500 ml/hr, l 0.0014 22:28: Infuse [place] MEQ/ML / 00 Over: 1 Potassium hr, Route: Chloride IV, 500, 0.004 Drug form: MEQ/ML / INJ, ONCE, Sodium Priority: Chloride STAT, 0.103 Dosing MEQ/ML / Weight 70 Sodium kg, Start Lactate date: 0.028 04/10/20 MEQ/ML 16:28:00 Injectable SERVICE COUNTER CASHIER, Stop Solution date: 04/10/20 16:28:00 SERVICE COUNTER CASHIER, 0 Insulin 2019-05 No Notes: Memoria regular [...] 2-08 (Same as: l 18:25: KCL) 10 00 mEq/100ml product recommende d for peripheral line administra tion. Infuse no faster than 10 mEq/hr if given peripheral ly. cefepime 2019-05 No Notes: Memoria 2-08 (Same As: l 18:00: Maxipime) MEDICATION WASTE Product Size: 1000 mg Product [...] Blood Glucose Results, Start date: 04/10/20 10:45:00 SERVICE COUNTER CASHIER, Duration: 30 day, Stop date: 05/10/20 10:44:00 SERVICE COUNTER CASHIER, 0 Glucagon 2019-05 No 1 mg, Memoria 2-08 Route: IM, l 16:45: Drug form: [place] PDR/INJ, PRN, Dosing Weight 70, kg, PRN Blood Glucose Results, Start date: 04/10/20 10:45:00 SERVICE COUNTER CASHIER, Duration: 30 day, Stop date: 05/10/20 10:44:00 SERVICE COUNTER CASHIER, 0 Insulin 2019-05 No Notes: Memoria Lispro 2-08 (Same as: l 16:45: Humalog) Roll in palms of hands gently; Do not shake vigorously . WASTE: F/P - Black; E - Municipal Trash Bin Stable for 28 days at room temperatur e. Expires in days from ____Date Calcium 2019-05 No 250 mL, Memoria Chloride 2-08 250 ml/hr, l 0.0014 16:41: Infuse Matty MEQ/ML / 00 Over: 1 Potassium hr, Route: Chloride IV, 250, 0.004 Drug form: MEQ/ML / INJ, ONCE, Sodium Priority: Chloride STAT, 0.103 Dosing MEQ/ML / Weight 70 Sodium kg, Start Lactate date: 0.028 04/10/20 MEQ/ML 10:41:00 Injectable SERVICE COUNTER CASHIER, Stop Solution date: 04/10/20 10:41:00 SERVICE COUNTER CASHIER, 0 Potassium 2019-05 No Notes: Memori a Chloride 2-08 (Same as: l 1.33 MEQ/ML 16:39: Potassium H ermann Oral 00 Chloride) Solution Docusate 2019-05 No Notes: Memoria 2-08 (Same as: l 15:00: Colace) [place] 00 POLYETHYLEN 2019-05 No Notes: [facility] E GLYCOL 2-08 Dissolve l 3350 15:00: in 8 oz of Matty water or juice. (Same as: Miralax) sennosides, 2019-05 No Notes: [facility] 2-08 (Same as: l 15:00: Senokot) [place] Saline 2019-05 No Notes: Memoria Flush 0.9% 2-08 (Same as: l 15:00: BD Matty Posiflush) chlorhexidi 2019-05 No Notes: [facility] rae[facility] ne 2-08 (Same As: l gluconate 15:00: Peridex) Herm naye 1.2 MG/ML 00 Mouthwash Vancomycin 2019-05 No 2000 mg: Me moria 2-08 infuse l 13:53: over 2.5 Matty 00 hours chlorhexidi 2019-05 No Notes: [facility] ra[facility] ne 2-08 (Same As: l gluconate 13:51: Peridex) Herm naye 1.2 MG/ML 00 Mouthwash Nystatin 2019-05 No Notes: Memoria 100 UNT/MG 208 (Same l Topical 13:46: as:Mycosta Herm naye Powder 00 tin, Nilstat) For external use only. Acetaminoph 2019-05 No Notes: Do M emoria en 2-08 not exceed l 13:46: 4 gm/day. [place] (Same as: Tylenol) Saline 2019-05 No Notes: Memoria Flush 0.9% 2-08 (Same as: l 13:46: BD [place] Posiflush) Dexamethaso 2019-05 No Notes: [facility] ne 2-08 Concentrat l 12:00: ion: [place] 00 4mg/ml Metronidazo 2019-05 No 500 mg, Mem oria le 2 Route: l 10:00: IVPB, ONCE, Dosing Weight 79.545, kg, Priority: STAT, Start date: 04/10/20 4:00:00 SERVICE COUNTER CASHIER, Stop date: 04/10/20 4:00:00 SERVICE COUNTER CASHIER, ABX Indication : Pneumonia cefepime 2019-05 No 2 gm, Memoria 208 Route: l 09:59: IVP, ONCE, Dosing Weight 79.545, kg, Priority: STAT, Start date: 04/10/20 3:59:00 SERVICE COUNTER CASHIER, Stop date: 04/10/20 3:59:00 SERVICE COUNTER CASHIER, ABX Indication : Pneumonia Vancomycin 2019-05 No 2000 mg: Me moria 2-08 infuse l 09:59: over 2.5 Matty 00 hours Famotidine 2019-05 No Notes: Memor ia 208 (Same as: l 08:52: Pepcid) Can be dilute in 5-10cc NS IVP: Slow IV push over at least 2 minutes. Dexamethaso 2019-05 No 10 mg, [facility] rae[facility] ne 2-08 Route: l 08:51: IVP, ONCE, Dosing Weight 79.545, kg, Priority: STAT, Start date: 04/10/20 2:51:00 SERVICE COUNTER CASHIER, Stop date: 04/10/20 2:51:00 SERVICE COUNTER CASHIER Midazolam 2019-05 No Notes: Memori a 208 (Same as: l 07:26: Versed) Isolyte S 2019- No 1,000 mL, Mem oria PH-7.4 2-08 Infuse l (Bolus) IV 07:22: Over: 1 Herm naye 00 hr, Route: IV, Drug form: INJ, ONCE, Priority: STAT, Dosing Weight 79.545 kg, Start date: 04/10/20 1:22:00 SERVICE COUNTER CASHIER, Stop date: 04/10/20 1:22:00 SERVICE COUNTER CASHIER, Bolus Dose Fentanyl 2019-05 No 1,000 Memoria 2-08 microgram, l 06:49: 20 mL, Rate: Titrate, Start Dose: 50 microgram/ hr, Titration: 25 microgram/ hour every 15 minutes, Goal(s): hr, Max Dose: 300 microgram/ hr, Route: IV, Dosing Weight 79.545 kg, Total Volume: 20, Start date: 04/10/20 0:49:00 SERVICE COUNTER CASHIER, Duratio... Isolyte S 2019- No 1,000 mL, Mem oria PH-7.4 2-08 Infuse l (Bolus) IV 06:49: Over: 1 Herm naye 00 hr, Route: IV, Drug form: INJ, ONCE, Priority: STAT, Dosing Weight 79.545 kg, Start date: 04/10/20 0:49:00 SERVICE COUNTER CASHIER, Stop date: 04/10/20 0:49:00 SERVICE COUNTER CASHIER, Bolus Dose Norepinephr 2019- No Notes: [facility] ra[facility] ine 2-08 Same as: l 06:49: Levophed. Matty Administer by either central venous catheter or peripheral ly-inserte d central catheter (PICC) line. Saline 2019-05 No Notes: Memoria Flush 0.9% 2-08 (Same as: l 06:38: BD Matty 00 Posiflush) Flumazenil 2019-05 No 0.2 mg, [facility] ra[facility]ann 2-05 Route: l 00:38: IVP, PRN, Matty Dosing Weight 79.545, kg, PRN Benzodiaze pine Reversal, Initial dose, Start date: 04/06/20 18:38:00 SERVICE COUNTER CASHIER, Duration: 30 day, Stop date: 05/06/20 18:37:00 SERVICE COUNTER CASHIER Naloxone 2019-05 No 0.4 mg, Memori a 06-08 Route: l 00:38: IVP, [place] 00 Q2MIN, Dosing Weight 79.545, kg, PRN Narcotic Reversal, Start date: 04/06/20 18:38:00 SERVICE COUNTER CASHIER, Duration: 8 doses or times, Stop date: Limited # of times Ondansetron 2019-05 No 4 mg, Memor ia 2- Route: l 00:38: IVP, ONCE, Dosing Weight 79.545, kg, PRN Nausea & Vomiting, Start date: 04/06/20 18:38:00 SERVICE COUNTER CASHIER Sodium 2019- No 1,000 mL, Memori a Chloride 06-07 Rate: 50 l 0.9% IV 21:43: ml/hr, Matty 1,000 mL 00 Infuse over: 20 hr, Route: IV, Dosing Weight 79.545 kg, Total Volume: 1,000, Priority: Routine, Start date: 04/06/20 15:43:00 SERVICE COUNTER CASHIER, Duration: 30 day, Stop date: 05/06/20 15:42:00 SERVICE COUNTER CASHIER, 1.96, m2 Acetaminoph 2019- No 325 mg, Mem oria en 2-04 Route: PO, l 21:43: Drug form: [place] 00 TAB, Q4H, Dosing Weight 79.545, kg, PRN Pain Score 1-3, Start date: 04/06/20 15:43:00 SERVICE COUNTER CASHIER, Duration: 30 day, Stop date: 05/06/20 15:42:00 SERVICE COUNTER CASHIER Acetaminoph 2019-05 No 1 tab, [facility] ra[facility] en 325 MG / 2-04 Route: PO, l Hydrocodone 21:43: Drug Form: Matty Bitartrate 00 TAB, 5 MG Oral Dosing Tablet Weight 79.545, kg, Q4H, PRN Pain Score 4-6, Start date: 04/06/20 15:43:00 SERVICE COUNTER CASHIER, Duration: 30 day, Stop date: 05/06/20 15:42:00 SERVICE COUNTER CASHIER Bupivacaine 2019-05 No 30 mL, [facility] ra[facility] Hydrochlori 2-04 Route: l de 2.5 12:00: MISC, [place] MG/ML / 00 Dosing Epinephrine Weight 0.005 MG/ML 79.545, Injectable kg, Solution ONCALL, Start date: 04/06/20 6:00:00 SERVICE COUNTER CASHIER, Duration: 30 day, Stop date: 05/06/20 5:59:00 SERVICE COUNTER CASHIER Bacitracin 2019-05 No 1 appl, [facility] ra[facility]ann 0.5 UNT/MG 2-04 Route: l / Polymyxin 12:00: TOP, Parveen n B 10 UNT/MG 00 ONCALL, Topical Drug form: Ointment OINT, [Polysporin Priority: ] Routine, Start date: 04/06/20 6:00:00 SERVICE COUNTER CASHIER, Duration: 1 doses or times Fentanyl 2019-05 No 50 Memoria 2-04 microgram, l 12:00: Route: Matty 00 IVP, ONCALL, Dosing Weight 79.545, kg, Priority: Routine, Start date: 04/06/20 6:00:00 SERVICE COUNTER CASHIER, Duration: 1 doses or times Sodium 2019-05 No 1,000 mL, Memori a Chloride 2-04 Rate: 50 l 0.9% IV 11:49: ml/hr, Matty 1,000 mL 00 Infuse over: 20 hr, Route: IV, Dosing Weight 79.545 kg, Total Volume: 1,000, Priority: Routine, Start date: 04/06/20 5:49:00 SERVICE COUNTER CASHIER, Duration: 30 day, Stop date: 05/06/20 5:48:00 SERVICE COUNTER CASHIER, 1.96, m2, 0 Dexamethaso 2019-05 Yes 6 mg, Memor ia ne 2-04 Route: l 11:49: IVP, Drug [place] 00 form: INJ, ONCE, Dosing Weight 79.545, kg, Start date: 04/06/20 5:49:00 SERVICE COUNTER CASHIER, Stop date: 04/06/20 5:49:00 SERVICE COUNTER CASHIER Famotidine 2019-05 Yes Notes: Memor ia 2-04 [...] Nausea & Vomiting, Start date: 04/06/20 5:49:00 SERVICE COUNTER CASHIER, Duration: 30 day, Stop date: 05/06/20 5:48:00 SERVICE COUNTER CASHIER Fentanyl 2019-05 No 25 Memoria 2-04 microgram, l 11:49: Route: IVP, Q1H, Dosing Weight 79.545, kg, PRN Pain Score 7-10, Priority: Routine, Start date: 04/06/20 5:49:00 SERVICE COUNTER CASHIER, Duration: 1 doses or times, Stop date: Limited # of times Hydralazine 2019-05 No 20 mg, [facility] ra[facility]ann 2-04 Route: IV, l 11:49: Q4H, Dosing Weight 79.545, kg, PRN Hypertensi on, Start date: 04/06/20 5:49:00 SERVICE COUNTER CASHIER, Duration: 30 day, Stop date: 05/06/20 5:48:00 SERVICE COUNTER CASHIER Labetalol 2019-05 No 10 mg, Memori a 2-04 Route: l 11:49: IVP, Drug form: INJ, [id number] , Dosing Weight 79.545, kg, PRN Hypertensi on, Start date: 04/06/20 5:49:00 SERVICE COUNTER CASHIER, Duration: 3 doses or times, Stop date: [...] ing # 60 tab, 0 Refill(s), [id number], 167.64, cm, 12/05/19 22:02:00 CDT, Height, 63.636, kg, 12/05/19 22:02:00 CDT, Weight Dexamethaso 2020-0 Yes 4 mg = 1 Me moria ne 4 MG - tab, PO, l Oral Tablet 21:51: BID, X 30 H erm day, # 60 tab, 0 Refill(s), Pharmacy: [facility] #[id number], 167.64, cm, 12/05/19 22:02:00 CDT, Height, 63.636, kg, 12/05/19 22:02:00 CDT, Weight Dexamethaso 2019-0 No Notes: [facility] rae[facility] ne 12-08 Concentrat l 21:00: ion: [place] 00 4mg/ml Dexamethaso 2019-0 No Notes: [facility] [...] one 12-05 (Same as: l 15:31: Cortef) Sertraline No Notes: Memor ia 12-05 (Same as: l 14:00: Zoloft) Famotidine No Notes: Memor ia - (Same as: l 14:00: Pepcid) Can be dilute in 5-10cc NS IVP: Slow IV push over at least 2 minutes. Keppra No 500 mg, Memoria 12-05 Route: l 14:00: IVPB, Matty 00 Q12H, Dosing Weight 63.636, kg, Priority: Routine, Start date: 12/06/19 9:00:00 CDT, Duration: 30 day, Stop date: 01/04/20 21:00:00 CDT Clonazepam No Notes: Memor ia - (Same As: [...] ia 8-04 (Same as: l 14:00: Lyrica) Dexamethaso 2020-0 No Notes: [facility] rae[facility] ne 12-05 Concentrat l 13:00: ion: 4mg/ml levothyroxi 2020-0 No 0 Memori a ne 125 mcg 12-05 Refill(s) l (0.125 mg) 11:51: [place] oral tablet 00 hydrocortis 20200 No TK 3 TS PO Memoria one 5 mg 12-05 QAM AND 1 l oral tablet 11:51: T IN THE AFTERNOON PLUS EXTRA IN TIMES OF STRESS Ergocalcife 2020-0 Yes 50,000 [facility] ra[facility] rol 01912 12-05 IntlUnit = l UNT Oral 11:51: 1 cap, PO, Her bonilla Capsule 00 qWeek sertraline 0 Yes 100 mg = 1 M emoria [...] stephenie) 1.25 00:00: M.D. MOUTH [place] MG (28568 MG (65481 00 WEEKLY Phy sici [place]) Oral [place]) [...] tab, PEG, l Tablet 20:34: BID, 0 [place] 00 Refill(s) pantoprazol Yes 40 mg = 1 M emoria e 40 mg 1-25 pkt, PEG, l oral 20:34: Daily, 0 [place] granule 00 Refill(s) gabapentin Yes 300 mg = 6 M emoria 50 MG/ML 1-25 mL, PEG, l Oral 20:34: Q8H, 0 [place] Solution 00 Refill(s) Imodium A-D No Notes: [...] 05-26 Rate: 75 l Sodium 11:57: ml/hr, Matty Chloride 00 Infuse 0.154 over: 13.3 MEQ/ML hr, Route: Injectable IV, Dosing Solution Weight 76.818 kg, Total Volume: 1,000, Start date: 05/26/15 5:57:00, Duration: 30 day, Stop date: 06/25/15 5:56:00 Gastrografi No Notes: [facility] raeann n 05-25 WASTE: F/P l 20:51: - Black; E [place] - Municipal Trash Bin Flagyl No Notes: Memoria 05-24 (Same as: l 17:00: Flagyl) [place] Avoid alcohol. 200 ML No Notes: Do Memori a Ciprofloxac 05-24 not l in 2 MG/ML 17:00: refrigerat H ermann Injection 00 e Thyroxine No Notes: Memori a 05-24 (Same as: l 15:00: Synthroid) Matty 00 Keppra No Notes: Memoria - Same as l 03:00: Keppra Matty Mix with 100 mL NS, LR or D5W MEDICATION WASTE Product Size: 500 mg Product Wasted: ___ mg Dexamethaso No Notes: [facility] ra[facility] ne 05-24 Concentrat l 03:00: ion: [place] 00 4mg/ml Protonix No Notes: Memoria - (Same as: l 03:00: Protonix) Matty Dexamethaso No Notes: [facility] ra[facility] ne - Give with l 23:00: food. Matty 00 (Same As: Decadron) Morphine No Notes: Memoria -20 (Same l 22:26: as:MORPhin Matty 00 e Sulfate) Clindamycin No Notes: [facility] ra[facility] -20 (clindamyc l 22:26: in 150 [place] 00 mg/1 ml (600 mg/4 ml VL) [...] / 1-15 (Same as: l Hydrocodone 16:45: [place] Lanny nn Bitartrate 00 325/5) Do 5 MG Oral not exceed Tablet 4gm/day of [[place] acetaminop 5/325] hen. Multihance No Notes: Memor ia 529 mg/mL 1-14 Same as l 04:17: Multihance Keppra No Notes: Memoria 1-14 Same as l 02:23: Keppra [place] 00 Mix with 100 mL NS, LR [...] Immunizations Ordered Filled Immunization Date Status Comments [facility] e Immunization Name Name Influenza 2013-03-01 Completed [facility] 15:07:00 Denny Cook ns Vital Signs Vital Name Observation Time Observation Value Comments Source Systolic (mm Hg) 2020-04-19 [facility] rmann 13:27:00 Diastolic (mm Hg) 2020-04-19 [facility] ermann 13:27:00 Respitory Rate 2020-04-19 [facility] 13:27:00 Respitory Rate 2020-04-19 [facility] 10:59:00 Systolic (mm Hg) 2020-04-19 [facility] rmann 10:59:00 Diastolic (mm Hg) 2020-04-19 [facility] ermann 10:59:00 Respitory Rate 2020-04-19 [facility] 02:40:00 Systolic (mm Hg) 2020-04-19 [facility] 02:40:00 Diastolic (mm Hg) 2020-04-19 [facility] ermann 02:40:00 Heart Rate 2020-04-18 [facility] Parveen [...] He rmann 21:00:00 Diastolic (mm Hg) 2019-12-09 [facility] ermann 21:00:00 Respitory Rate 2019-12-09 [facility] 20:00:00 Systolic (mm Hg) 2019-12-09 [facility] 16:00:00 Diastolic (mm Hg) 2019-12-09 [facility] Bernard ermann 16:00:00 Temperature Oral 2019-12-06 97.8 F [facility] Erwin rmann (F) 17:30:00 Temperature Oral 2019-12-06 98 F [facility]win rmann (F) 15:30:00 Height 2019-12-06 167.64 cm Missael Santosan n 03:02:00 BMI Calculated 2019-12-06 [facility] 03:02:00 Weight 2019-12-06 [facility] Parveen n 03:02:00 Heart Rate 2019-12-06 [facility] Parveen n 03:02:00 Body height 2019-12-02 66 [in_us] [facility] 14:58:00 [place] Physician s Weight 2019-12-02 155 [lb_av] [facility] 14:58:00 [place] Physician s Body mass index 2019-12-02 25.02 kg/m2 University o f (BMI) [Ratio] 14:58:00 [place] Physicia ns Body temperature 2019-12-02 98.3 [degF] [facility] 14:58:00 [place] [facility]ician s Systolic blood 2019-06-27 113 mm[Hg] Location: [facility] 15:52:00 Position: [place] Physician s Sitting Diastolic blood 2019-06-27 73 mm[Hg] Location: [facility] 15:52:00 Position: [place] Physician s Sitting Body height 2019-06-27 66 [in_us] [facility] 15:52:00 [place] Physician s Weight 2019-06-27 165.6 [lb_av] [facility] 15:52:00 [place] [facility]ician s Body mass index 2019-06-27 26.73 kg/m2 University o f (BMI) [Ratio] 15:52:00 [place] Physicia ns Heart Rate 2019-06-27 67 /min [facility] 15:52:00 [place] Physician s BP Systolic 2019-05-09 101 mm[Hg] [facility] 10:28:[facility] Position: [place] Physician s Sitting BP Diastolic 2019-05-09 68 mm[Hg] Location: [place]; [facility] 10:28:00 Position: [place] Physician s Sitting Height 2019-05-09 66 [in_us] University 10:28:00 [place] [facility] s Weight 2019-05-09 157 [lb_av] [facility] 10:28:00 [place] [facility] s Body Mass Index 2019-05-09 25.34 kg/m2 University o f Calculated 10:28:00 [place] [facility] s Heart Rate 2019-05-09 72 /min University 10:28:00 [place] Physician s BP Systolic 2018-06-21 97 mm[Hg] Location: [facility] [place]; [facility] 14:55:00 Position: [place] Physician s Sitting BP Diastolic 2018-06-21 61 mm[Hg] Location: [facility] [place]; [facility] 14:55:00 Position: [place] Physician s Sitting Height 2018-06-21 66 [in_us] University 14:55:00 [place] [facility]ician s Weight 2018-06-21 154 [lb_av] [facility] 14:55:00 [place] Physician s Body Mass Index 2018-06-21 24.86 kg/m2 University o f Calculated 14:55:00 [place] [facility] s Heart Rate 2018-06-21 65 /min University 14:55:00 [place] Physician s BP Systolic 2018-06-08 101 mm[Hg] Location: [facility]; [facility] 15:17:00 Position: [place] Physician s Sitting BP Diastolic 2018-06-08 69 mm[Hg] Location: [facility]; [facility] 15:17:00 Position: [place] Physician s Sitting Height 2018-06-08 66 [in_us] [facility] 15:17:00 [place] [facility] s Weight 2018-06-08 159 [lb_av] [facility] 15:17:00 [place] [facility] s Body Mass Index 2018-06-08 25.66 kg/m2 University o f Calculated 15:17:00 [place] [facility] s Heart Rate 2018-06-08 61 /min [facility] 15:17:00 [place] [facility] s Systolic (mm Hg) 2015-07-06 [facility] 02:55:00 Diastolic (mm Hg) 2015-07-06 [facility] ermann 02:55:00 Respitory Rate 2015-07-06 [facility] naye 02:55:00 Respitory Rate 2015-07-06 [facility] naye 01:43:00 Systolic (mm Hg) 2015-07-06 [...] n 18:07:00 Temperature Oral 2015-05-28 99.5 F [facility] Erwin rmann (F) 18:07:00 Systolic (mm Hg) 2015-05-28 [facility] 18:07:00 Diastolic (mm Hg) 2015-05-28 [facility] 18:07:00 Respitory Rate 2015-05-28 [facility] 18:07:00 Heart Rate 2015-05-28 [facility]en n 14:02:00 Systolic (mm Hg) 2015-05-28 [facility] 14:02:00 Diastolic (mm Hg) 2015-05-28 [facility] 14:02:00 Respitory Rate 2015-05-28 [facility] 14:02:00 Temperature Oral 2015-05-28 97.4 F [facility] (F) 14:02:00 Respitory Rate 2015-05-28 [facility] 09:52:00 Heart Rate 2015-05-28 [facility] Parveen n 09:52:00 Systolic (mm Hg) 2015-05-28 [facility] 09:52:00 Diastolic (mm Hg) 2015-05-28 [facility] 09:52:00 Temperature Oral 2015-05-28 97.9 F [facility] (F) 09:52:00 Weight 2015-05-10 [facility] n 19:54:00 Height 2015-05-09 165.1 cm [facility] 23:35:00 Weight 2015-05-09 [facility] 23:35:00 BMI Calculated 2015-05-09 [facility] 23:35:00 Procedures Procedure Date / Time Performing Clinician Source Performed Arterial catheterization 2020-04-15 03:54:00 Mem orial Matty or cannulation for sampling, monitoring or transfusion (separate procedure); percutaneous Intubation, endotracheal, 2020-04-15 03:54:00 Me morial Matty emergency procedure Bronchoscopy, rigid or 2020-04-15 03:54:00 Memor ial [place] flexible, including fluoroscopic guidance, when performed; with bronchial alveolar lavage [QLH] VITAMIN D, 2019-05-20 00:00:00 [facility] 25-HYDROXY, LC/MS/MS Physicians [QLH] SODIUM 2019-05-09 00:00:00 [facility] Physicians [QLH] T4, FREE 2019-05-09 00:00:00 [facility] Physicians [QLH] VITAMIN D, 2019-05-09 00:00:00 [facility] 25-HYDROXY, LC/MS/MS Physicians [QLH] VITAMIN D, 2018-06-24 00:00:00 [facility] 25-HYDROXY, LC/MS/MS Physicians Craniotomy 1999-05-04 06:00:00 [facility] Biopsy of breast [facility] Parveen sanchez Creation of [employer] Lanny nn Stereotactic focused gamma Memor ial [place] radiosurgery of cerebrum History of Appendectomy [facility] Physicians History of Ovarian Surgery [facility] Physicians Plan of Care Planned Activity Planned Date Details Comments Source Diagnostic Test 2019-08-17 [QLH] VITAMIN D, [facility] Pending 00:00:00 25-HYDROXY, Physicians LC/MS/MS [code = [QLH] VITAMIN D, 25-HYDROXY, LC/MS/MS] Diagnostic Test 2018-10-02 [QLH] VITAMIN D, [facility] Pending 00:00:00 25-HYDROXY, Physicians LC/MS/MS [code = [QLH] VITAMIN D, 25-HYDROXY, LC/MS/MS] Encounters Start End Encounter Admission Attending Care Care Encounter Source Date/Time Date/Time Type Type Clinicians Facility Department ID 2020-04-10 2020-04-19 Outpatient Carmencita Harmon [facility] [id number] 00:17:00 12:40:00 05 2020-04-10 2020-04-10 Inpatient E [facility] MED [id number] [facility] 04:57:00 00:17:00 2020-04-10 2020-04-10 Outpatient Jane, [facility] [id number] 00:17:00 00:17:00 Raven Carias 2020-04-06 2020-04-06 Outpatient Esquenazi [facility] [id number] 05:39:00 23:59:00 Florina Ruiz 2020-04-06 2020-04-06 Outpatient Esquenazi [facility] [id number] 05:39:00 23:59:00 Florina Ruiz 2020-04-06 2020-04-06 Outpatient [facility] [id number] [facility] 05:39:00 05:39:00 2020-01-27 2020-01-27 Outpatient [facility] [id number] [facility] 05:00:00 05:00:00 2020-01-18 2020-01-18 Outpatient Ponce, [facility] [id number] 13:00:00 23:59:00 David 54 Meño 2020-01-18 2020-01-18 Outpatient [facility] [id number] [facility] 13:00:00 13:00:00 2019-12-05 2019-12-09 Outpatient Roly, [facility] [id number] 22:02:00 19:45:00 Roscoe 16 2019-12-05 2019-12-09 Outpatient Karshai, [facility] [id number] 22:02:00 19:45:00 Roscoe 16 2019-12-06 2019-12-05 Inpatient E [facility] [id number] [facility] 04:58:00 21:38:00 2019-12-02 2019-12-02 Appointmen PEBBLES NG Otorhinolar [id number] [facility] 15:30:00 15:30:00 t; ALBINO ayersngology - it andria [facility] ans 2019-12-02 2019-12-02 Appointmen PEBBLES ANTHONY Otorhinolar [id number] Univers 14:30:00 14:30:00 t; RENUKA ANTHONY yngology - alexandro of [place]oreen [facility] 2019-12-02 2019-12-02 Appointmen PEBLBES AGUSTIN Otorhinolar [id number] Univers 14:00:00 14:00:00 t; LE AGUSTINngology - ity [facility] Physici [place] ans 2019-09-30 2019-09-30 Appointmen PEBBLES ANTHONY Otorhinolar [id number] Univers 09:15:00 09:15:00 t; RENUKA ANTHONY yngology - ity nikki GRAYSON M.D. [facility] Physici [facility] 2019-09-30 2019-09-30 Appointmen VAMSI, PEBBLES [facility] [id number] Univers 08:30:00 08:30:00 t; LE AGUSTIN ity [facility] 2019-07-22 2019-07-22 Appointmen PEBBLES AGUSTIN [id number] Univers 14:00:00 14:00:00 t; LE AGUSTIN ity [facility] 2019-06-27 2019-06-27 Appointmen PEBBLES MERCER Neurology - 5 [id number] Univers 16:00:00 16:00:00 t; Denny V[facility]ADARES M.D[facility] MJeff ans 2019-06-20 2019-06-20 Appointmen PEBBLES [facility] [id number] Univers 16:00:00 16:00:00 t; alexandro [facility]. [facility] 2019-05-20 2019-05-20 Appointmen PEBBLES AGUSTIN Otorhinolar [id number] Univers 14:00:00 14:00:00 t; LE AGUSTINngology - ity [facility] Physici [place] ans 2019-05-09 2019-05-09 Appointmen PEBBLES PAIZ Endocrinolo [id number] Univers 09:45:00 09:45:00 t; Noreen ARELLANO [facility] alexandro [facility] EILEEN [place] Physici MJeff [facility] 2019-01-17 2019-01-17 [facility] [id number] 16:12:46 16:57:15 Visit roni [facility] [id number] [facility] [id number] [place] [address] [id number] Primary & 198 Specialty Care 2018-06-21 2018-06-21 PEBBLES Chun Neurology [id number] Univers 15:00:00 15:00:00 t; alexandro VALLADARES M.D. [place] Monae VALLADARES M.D. ans 2018-06-08 2018-06-08 [facility] [id number] Univers 15:40:00 15:40:00 t; Noreen ARELLANO y of [facility] M.D. ans 2018-03-22 2018-03-22 [facility] [id number] Univers 09:45:00 09:45:00 t; Noreen ARELLANO y of [facility] M.D. ans 2017-09-21 2017-09-21 [facility] [id number] Univers 09:45:00 09:45:00 t; Noreen ARELLANO y of [facility] M.D. ans 2017-04-16 2017-04-16 [facility] [id number] Univers 15:30:00 15:30:00 t; RACHELLE RAWLS ity of [place], M.D. [place] M.D. Physickareen ans 2017-03-23 2017-03-23 [facility] [id number] Univers 09:00:00 09:00:00 t; Noreen ARELLANO y of [facility] M.D. ans 2017-01-12 2017-01-12 [facility] [id number] Univers 10:30:00 10:30:00 t; RACHELLE RAWLS ity of [place], M.D. [place] M.D. Physickareen ans 2016-10-21 2016-10-21 Zhanna GRIMM [facility] [id number] Univers 10:00:00 10:00:00 t; VIET GRIMM M.D. ity of VALA, M.D. [facility] 2016-08-01 2016-08-01 Appointmen PEBBLES BA UTP [id number] Univers 09:00:00 09:00:00 t; TED BA [facility] 2016-07-15 2016-07-15 Appointmen PEBBLES GRIMM UTP [id number] Univers 10:30:00 10:30:00 t; VIET GRIMM M.D. ity of VALA, M.D. [facility] 2016-07-01 2016-07-01 Appointmen PEBBLES BA UTP [id number] Univers 09:30:00 09:30:00 t; TED BA [facility] 2015-07-26 2015-07-26 Outpatient Ponce, [facility] [id number] 13:46:00 23:59:00 David 53 Meño 2015-07-05 2015-07-05 Outpatient Geronimo, [facility] [id number] 14:39:00 21:00:00 Vilma Guevara 2015-05-09 2015-05-28 Outpatient Juan, [facility] [id number] 16:27:00 16:51:00 Emma Valdez 1999-11-19 1999-11-19 Orders Doctor MARTY [id number] 00:00:00 00:00:00 Only Unassigned, RIGO [id number] [place] [facility] [id number] Results Test Description Test Time Test Comments Results Result Comments Source URINE AND STOOL 2020-04-16 [facility] 13:51:00 *NA*(04/16/20 [place] 7:51 AM) URINE AND STOOL 2020-04-16 [facility] 13:51:00 (04/16/20 7:51 Matty AM) URINE AND STOOL 2020-04-16 13:51:00 Test Item Value Reference Range Interpretation Comme nts UA Spec Grav (test code = UA Spec Grav) 1.015 1 [facility] JYQQL4856[facility]00-28 13:51:00 Test Item Value Reference Range Interpretation Comments UA pH (test code = UA pH) 7.0 1 5.0-8.0 [facility] EAAZD0636-00-06 13:51:00Negative *NA*(04/16/20 7:51 AM)[facility] UKABO6314-10-97 13:51:00Negative (04/16/20 7:51 AM) [facility] FNVPD0734-51-64 13:51:000.2[facility] TFZAS0786-74-79 13:51:00Negative (04/16/20 7:51 AM)[facility] MQGNU5412-64-47 13:51:00Negative (04/16/20 7:51 AM)[facility] UGHSX6491-58-34 13:51:002[facility] HNOBW8459-88-20 13:51:002 [facility] LSIUV5162-53-57 13:51:00Performed (04/16/20 7:51 AM) [facility] JIYN1236-32-00 13:51:12883Dsiwborx [facility]annURINE CHEM 2020-04-16 13:51:57934Eicprtzx HermannCHEM NEADV5587-62-85 09:08:003.7[facility]ann[facility] DRCTS8738-68-90 09:08:002.3[facility]annCHE[facility] ABUVZ3054-69-03 09:08:08816Eldlngzc HermannCHEM KECGJ2018-27-12 09:08:0013[facility]annCHE[facility] FOQWE6671-91-80 09:08:000.52[facility]annCHE[facility] GASFA4052-61-39 09:08:51414 [facility] EDHZX7520-26-58 09:08:004.4[facility]annCHEM PANEL 2020-04-16 09:08:52317Oizjsnze HermannCHEM WSJMG9219-77-64 09:08:0032[facility]ann[facility] TQWGE3496-00-80 09:08:008.5[facility]annCHE[facility] OANUV3322-81-18 09:08:007.4[facility]annCHE[facility] OTMQA1759-93-01 09:08:34276Ddufylqf [place] HPVYSHIUQF4307-60-71 09:08:008.7[facility] PslpgkqXPYHOBAVZM2800-23-89 09:08:00 3.54[facility] NuhhrjfRDVXBKHPLX0868-21-02 09:08:009.9[facility]annHEMATOLOGY 2020-04-16 09:08:0029.9[facility] CmuxrraYWXMRPHRFS0472-83-11 09:08:0084.5[facility] TqqnevpHGQSLIWXFZ9171-56-70 09:08:00 Test Item Value Reference Range Interpretation Comments MCH (test code = MCH) 28.0 pg 27.0-31.0 [facility] AzulicyZYTIDAWXUZ7811-32-57 09:08:0033.2[facility]annHEMATOLOGY 2020-04-16 09:08:0016.5[facility] BmerkkoSMWXVOTBXI5289-05-38 09:08:37078Jljorzsb JjrlmdiQLNPDIKMLK7643-29-94 09:08:007.3[facility] FpnuvkkYOHTKUNKPI2201-39-15 09:08:007.6[facility] MpygsyaLXZQAVWUKF0872-36-28 09:08:000.8[facility] [place] UEHZARSQDO5409-56-06 09:08:000.1[facility] SbxjkprDKYUCVHKSZ0831-64-33 09:08:00 80.0[facility] RzwrlsgSKFLRBWRRQ1960-02-73 09:08:007.0[facility]annHEMATOLOGY 2020-04-16 09:08:009.0[facility] XxrzibqJBXLVWVAIU4786-78-21 09:08:001.0[facility] IdtzprgHWGRCTMYXU3452-52-69 09:08:001.0[facility] JmpvwhoPOYZUAYKUE7088-45-48 09:08:002.0[facility] TcqujzbPIUUDASOLJ7893-99-73 09:08:000.0[facility] [place] PARATHYROID GAWOYMG2238-95-01 09:08:001.06[facility] HermannPARATHYROID PROFILE 2020-04-16 09:08:001.09[facility] OtcgsacIUAQTENEQR5942-33-67 02:45:0018.7[facility] QrdwcjjOMNYBVJODB8735-15-42 02:45:00 Test Item Value Reference Range Interpretation Comments Marty Sainz TND (test code = Marty Sainz 2100 1 TND) [facility]annCARDIAC ITGBZGK9760-91-56 14:08:000.17[facility]ann[facility]ARD[facility]AC DGQPKES1234-46-23 14:08:000.119[facility]annCHEM CZIKH2654-08-83 06:16:000.86 [facility]annCHE[facility] RMWMF9438-31-19 06:16:003.6[facility]annCHEM PANEL 2020-04-15 06:16:002.0[facility]annCHEM PGUCZ3802-99-19 06:16:39877Krijqvyy HermannCHEM XAKBK1238-83-34 06:16:0014[facility]annCHEM DNJFZ1039-34-80 06:16:000.53[facility]annCHEM GTMWD6526-03-60 06:16:40415Lleormrt HermannCHEM LFEXP2067-61-87 06:16:004.5[facility]annCHEM SYXTR3808-43-50 06:16:65027 [facility]ann[facility] KTFXR3882-25-18 06:16:0028[facility]annCHEM PANEL 2020-04-15 06:16:008.3[facility] HermannCHEM OOZSS0651-13-55 06:16:008.5[facility]annCHEM HZKEP0119-29-90 06:16:17117Feypgnqt QqalumgATVKFTVJSH8340-15-85 06:16:0080.6[facility] FwrjidfDAZPTEEOSC6230-76-77 06:16:0012.9[facility]ty JUCKCWYUMP9393-79-19 06:16:006.4[facility] YxkctvnQZRVUZERIE8842-37-07 06:16:000.1 [facility] VhmognwEERZYMYRHE5977-10-21 06:16:005.5[facility] HermannHEMATOLOGY 2020-04-15 06:16:000.9[facility] HhavjrjVUXKQMUQTY3100-95-10 06:16:000.4[facility] UhgkinzLDTWMTVBNA2092-52-83 06:16:006.8[facility] ZfyltraKBHYSHDPRH1837-41-49 06:16:003.56[facility] IqcpssmFAMALSRXVW6432-95-08 06:16:009.9[facility] [place] EFZWYOUAET8047-32-18 06:16:0030.2[facility] HgpyixxSQXRTAGCYL6533-66-36 06:16:00 84.8[facility] JodnyyfZLHQQLZHCB2200-53-55 06:16:00 Test Item Value Reference Range Interpretation Comments MCH (test code = MCH) 27.9 pg 27.0-31.0 [facility] IpckghnZLHCSGVHPO8414-86-86 06:16:0032.9[facility] HermannHEMATOLOGY 2020-04-15 06:16:0016.6[facility] WcqyphwWTRUFWOJOY6285-46-78 06:16:58467Oxwoplsj ZdntukpAHPNVUSSRU6385-00-43 06:16:007.2[facility] JrlqtdeSMMIPYSVNI0469-00-94 06:16:0055.9[facility] HermannPARATHYROID CTRDCXN6366-89-79 06:16:001.09[facility] HermannPARATHYROID OYZIUBF7754-03-91 06:16:001.10[facility] HermannCHEM PANEL 2020-04-15 00:14:38077Qldvfyyi HermannCHEM QNGRK1890-08-73 00:14:0013[facility]annCHEM DHRJV0466-42-95 00:14:000.62[facility]annCHEM OZLVQ2154-17-17 00:14:47011Iurebrbq HermannCHEM YEBUR4182-34-53 00:14:005.3[facility] HermannCHEM XQRAM1601-16-34 00:14:65431Lgngzhcq HermannCHEM FJJLL1662-73-66 00:14:0028 [facility]annCHE[facility] RSJUS2704-86-12 00:14:007.3[facility] HermannCHEM PANEL 2020-04-15 00:14:008.2[facility] HermannCHEM YCYZI3465-59-28 00:14:08732Oibelbzi HermannCHEM BHHDE0847-98-07 00:14:002.3[facility]annCHEM GBJSL5859-44-50 00:14:003.1[facility]annCHEM SQHKG2402-93-30 12:13:001.9[facility] HermannCHEM SDKBV3247-89-87 07:42:48301Zwtiymfn HermannCHEM HEJUF5135-33-50 07:42:0012 [facility]annCHEM RHWHV1355-15-66 07:42:001.08[facility] HermannCHEM PANEL 2020-04-14 07:42:34092Yqaxlwsg HermannCHEM MPBQS2102-89-68 07:42:003.0[facility] HermannCHEM QHDZP2112-04-54 07:42:47511Osxzcesp HermannCHEM IDSGW9048-66-92 07:42:0022[facility]annCHEM WCWIS8490-57-45 07:42:0017.0[facility] HermannCHEM OFKRU5682-83-37 07:42:008.5[facility] HermannCHEM HEBJN8446-85-13 07:42:0062 [facility]annCHEM YVOIY2080-84-74 07:42:002.4[facility] HermannCHEM PANEL 2020-04-14 07:42:002.8[facility] XwlspnyETMBXNYUNF6544-95-37 07:42:0069.7[facility] AkomofuFBXZVMSYTG9257-83-96 07:42:0025.6[facility] LjzncwsXQNJVNFAST3491-60-58 07:42:004.5[facility] SnpxgwuMZTKPQCQYB7193-96-41 07:42:000.1[facility] GPYPSXDPOH4377-61-15 07:42:000.1[facility] JfoehprRBSZUCDVNP1384-43-53 07:42:005.1 [facility] FyewfveCEGCIKQHJS7856-55-86 07:42:001.9[facility] HermannHEMATOLOGY 2020-04-14 07:42:000.3[facility] WevtrgwILVRMSERRE7212-64-58 07:42:007.3[facility] MhbruvpCGFVNGODVN9705-01-54 07:42:003.94[facility] CbrynxcVZPRTNAGRJ7524-89-01 07:42:0011.1[facility] JcssrhgSYJJUHWSZP5484-23-29 07:42:0033.8[facility] GJUIYBVAQF7812-75-79 07:42:0086.0[facility] GywoizyQZPETKEWNB6401-09-75 07:42:00 Test Item Value Reference Range Interpretation Comments MCH (test code = MCH) 28.3 pg 27.0-31.0 [facility] QsuebdyWZJSZZYQDF4362-97-79 07:42:0032.9[facility] HermannHEMATOLOGY 2020-04-14 07:42:0016.4[facility] MeiqwolQGAKTNTNAN3006-95-98 07:42:67377Plysgsqw SvvbcqeIOHYNRXZBM2199-49-42 07:42:007.4[facility] HermannPARATHYROID PROFILE 2020-04-14 07:42:001.09[facility] HermannPARATHYROID ORIEXWA8896-00-30 07:42:00 1.01[facility] BwbbfykEZUYACVKDS2339-91-57 10:37:00 Test Item Value Reference Range Interpretation Comments PT (test code = PT) 14.3 s 12.0-14.7 [facility] IrurxzpUJJPQVZQKK1359-88-10 10:37:00 Test Item Value Reference Range Interpretation Comments INR (test code = INR) 1.11 1 0.85-1.17 [facility] DemuprzIQNLCJYTGL7324-69-91 10:37:00 Test Item Value Reference Range Interpretation Comments PTT (test code = PTT) 59.6 s 22.9-35.8 [facility] GrpmfraWKCNKLGAOG0624-17-72 10:37:00Normal (04/13/20 4:37 AM)[facility] YrpountXVCSZQJZQI3455-74-29 10:37:00Normal (04/13/20 4:37 AM)[facility] [place] IELYZPELJB8193-73-68 10:37:0084.9[facility] VubvwwnRZHPZENODP2117-57-37 10:37:00 10.0[facility] TqtpwwlVRHWDDXKZU5220-22-78 10:37:005.0[facility] HermannHEMATOLOGY 2020-04-13 10:37:000.1[facility] PeyhatrESVBRMMAGW0193-83-45 10:37:007.0[facility] VsoiuxzZCTSZJJLFE7434-53-93 10:37:000.8[facility] JvrzerrEMECHALTTB0217-17-68 10:37:000.4[facility] HnllpooUOSLAPGCHL2928-11-26 10:37:008.2[facility] VGDCVSIRUC6074-62-67 10:37:003.66[facility] VpygjudTXFGHIGSRG5155-61-53 10:37:00 10.2[facility] BdbqxlrJYZLYSWQOI2194-71-28 10:37:0030.5[facility]annHEMATOLOGY 2020-04-13 10:37:0083.5[facility] ZaepjdwPRUVBMAHLJ9940-70-18 10:37:00 Test Item Value Reference Range Interpretation Comments MCH (test code = MCH) 27.8 pg 27.0-31.0 [facility] JygesbfAGHBQNQRNA8881-06-87 10:37:0033.3[facility] HermannHEMATOLOGY 2020-04-13 10:37:0016.6[facility] BarckfgLRGOFKYQPE0319-86-85 10:37:52662Vbdmiplp LcaizmbGNRYLZFLOU9176-49-98 10:37:007.4[facility] HermannPARATHYROID PROFILE 2020-04-13 10:37:000.97[facility] HermannPARATHYROID NTWWHTK7290-10-50 10:37:00 1.03[facility] VtltsbcODNQEVSRZD9261-51-78 23:46:00 Test Item Value Reference Range Interpretation Comments PTT (test code = PTT) 81.4 s 22.9-35.8 [facility] VgjwjgzSKXMKPYVRZ9330-51-06 15:59:00 Test Item Value Reference Range Interpretation Comments PTT (test code = PTT) 52.6 s 22.9-35.8 [facility]annCHEM FIOTP4513-61-35 09:24:001.2[facility] HermannCHEM PANEL 2020-04-12 09:24:005.3[facility] HermannCHEM BUPVK5145-66-29 09:24:002.2[facility] HermannCHEM ATJKU3982-58-89 09:24:0046[facility]annCHEM ZRKMH2419-36-96 09:24:0095[facility]annCHEM BSQGG8100-06-27 09:24:0054[facility] HermannCHEM FFXYU3472-84-66 09:24:000.3[facility] HermannCHEM FZXJW7788-68-12 09:24:000.1 [facility]annCHEM IKZWP9968-29-05 09:24:000.2[facility] HermannCHEM PANEL 2020-04-12 09:24:003.1[facility] HermannCHEM JTAVL4277-70-64 09:24:00 Test Item Value Reference Range Interpretation Comments A/G Ratio (test code = A/G Ratio) 0.7 1 0.7-1.6 [facility]annCHEM KOJRA8248-03-94 09:24:003.97[facility] HermannHEMATOLOGY 2020-04-12 09:24:004.0[facility] IylskudPLSDYXTXUJ0209-74-86 09:24:000.0[facility] AcfrdigARXUTPEUOP1027-05-34 01:48:0011.6[facility] HermannCARDIAC ENZYMES 2020-04-12 00:05:003.02[facility] HermannCHEM DFGTM5384-11-00 00:05:002.1[facility] HermannCARDIAC ILQDMSY8384-10-94 18:29:004.52[facility] HermannHEMATOLOGY 2020-04-11 18:29:00 Test Item Value Reference Range Interpretation Comments PT (test code = PT) 16.5 s 12.0-14.7 [facility] SwqmnngFBSUOUNGKF6493-66-17 18:29:00 Test Item Value Reference Range Interpretation Comments INR (test code = INR) 1.32 1 0.85-1.17 [facility] MdhrlwwYGNKIRIDEM1928-27-97 07:14:0016.0[facility] HermannHEMATOLOGY 2020-04-11 07:14:000.0[facility] QjdudlpLEZQBVXTNK5825-58-59 19:28:00<0.50 [facility]annBACTERIAL - QZHAPABN1614-58-30 16:56:00Urine *NA*(04/10/20 10:56 AM)[facility]annBACTERIAL - JYEUKAAS7441-85-05 16:56:00Negative (04/10/20 10:56 AM)[facility] HermannBACTERIAL - KRNFRDIC4083-09-35 14:40:00Negative (04/10/20 8:40 AM)[facility] HermannCARDIAC MZAKAWX8181-07-39 14:40:422279Qwivwrvu HermannCHEM XANVR9224-32-78 14:40:005.4[facility] HermannCHEM POEZB5822-77-08 14:40:002.6[facility] HermannCHEM CTELU3397-53-57 14:40:0033[facility] HermannCHEM YXBZN1393-31-52 14:40:06334Beficgoy HermannCHEM AHIAC9891-59-34 14:40:0051 [facility]annCHEM FWLUL6239-23-14 14:40:000.6[facility] HermannCHEM PANEL 2020-04-10 14:40:000.2[facility] HermannCHEM UNTCH8834-02-54 14:40:000.4[facility] HermannCHEM WUVUI7871-63-84 14:40:002.8[facility] HermannCHEM GAXZC9386-46-36 14:40:00 Test Item Value Reference Range Interpretation Comments A/G Ratio (test code = A/G Ratio) 0.9 1 0.7-1.6 [facility] HermannCHEM ZCMHM4253-28-81 14:40:0029.0[facility] CIPROFLOXACIN:SUSC:PT:ISOLATE:ORDQN:XCN3599-80-98 14:40:00Staphylococcus aureus [facility] HermannCIPROFLOXACIN:SUSC:PT:ISOLATE:ORDQN:FCH4213-71-44 14:40:00 Staphylococcus aureusMemorial BzcehlyTWSGOUQUMU1123-39-53 14:40:0011.0[facility] GtsmareZXRYEICBSO5869-09-95 14:40:003.0[facility] VyuxzatAZPNLQLSYL4260-07-71 14:40:000.0[facility] AaocymvWFAPGYMLGY6418-11-66 14:40:00Normal (04/10/20 8:40 AM) [facility] VnxahieVANMDYXYUO5549-06-58 14:40:001+ *ABN*(04/10/20 8:40 AM)[facility] MsmauxmMHWRFMGYFI2705-75-70 14:40:00 Test Item Value Reference Range Interpretation Comments PT (test code = PT) 16.3 s 12.0-14.7 [facility] ZehzlnkMDSWDKWDOP8630-71-34 14:40:00 Test Item Value Reference Range Interpretation Comments INR (test code = INR) 1.30 1 0.85-1.17 [facility]annMOLECULAR RNHZKNNDFI2988-14-78 14:40:00Nasophrngl Swb *NA*(04/10/20 8:40 AM)[facility]annMOLECULAR WVFGLHWFOG4498-14-09 14:40:00 Negative *NA*(04/10/20 8:40 AM)[facility] HermannMOLECULAR ORAKCQNISG1780-81-12 14:40:00Negative *NA*(04/10/20 8:40 AM)[facility]annMOLECULAR DIAGNOSTIC 2020-04-10 14:40:00Negative *NA*(04/10/20 8:40 AM)[facility] HermannSPECIAL OQRFZENTZ0922-10-25 14:40:005.1[facility]annURINE AND WDBVU7788-15-19 08:35:00Yellow *NA*(04/10/20 2:35 AM)[facility] AND LFWYH8508-04-30 08:35:00Clear (04/10/20 2:35 AM)[facility] BGHYR0298-29-42 08:35:00 Test Item Value Reference Range Interpretation Comments UA Spec Grav (test code = UA Spec 1.016 1 Grav) [facility] CQOGC5884-13-84 08:35:00 Test Item Value Reference Range Interpretation Comments UA pH (test code = UA pH) 6.0 1 5.0-8.0 [facility] AND GRTNO3666-44-15 08:35:00Negative *NA*(04/10/20 2:35 AM) [facility] JPQXU4899-24-02 08:35:00Large *ABN*(04/10/20 2:35 AM) [facility] BEETK3639-04-53 08:35:002.0[facility]UR[facility] AND HOPFS3633-03-88 08:35:00Negative (04/10/20 2:35 AM)[facility] ZHCPY8144-74-73 08:35:00Negative (04/10/20 2:35 AM)[facility] AND JITHH3309-06-64 08:35:001[facility]UR[facility] AND TAVWM2957-90-40 08:35:005 [facility]UR[facility] AND DGDNN0971-14-69 08:35:004[facility]annBLOOD BANK YWUHVMR5602-13-86 08:33:00Negative (04/10/20 2:33 AM)[facility] HermannCHEM PANEL 2020-04-10 08:33:0012.83[facility] ObuzqgbSURQUCPVAN0458-86-94 08:33:00 Test Item Value Reference Range Interpretation Comments ACT (TEG) Rapid (test code = ACT (TEG) 105 s 86-118 Rapid) [facility] CmmghmzYPQFAKQHRI7181-78-32 08:33:00 Test Item Value Reference Range Interpretation Comments Split Point Rapid (test code = Split 0.5 min Point Rapid) [facility] HeszqbtCPNJEGQDKC9929-84-90 08:33:00 Test Item Value Reference Range Interpretation Comments R-time Rapid (test code = R-time 0.6 min 0.4-0.7 Rapid) [facility] AkldgtpUPLJFMSXAW9457-18-67 08:33:00 Test Item Value Reference Range Interpretation Comments K-time Rapid (test code = K-time 0.8 min 0.6-2.3 Rapid) [facility] FntpzesEGHHZEJJZT8290-95-27 08:33:00 Test Item Value Reference Range Interpretation Comments Angle Rapid (test code = Angle 79 degrees 64-80 Rapid) [facility] BbpllluELBKEUUQLK5338-58-77 08:33:00 Test Item Value Reference Range Interpretation Comments Max Amplitude Rapid (test code = Max 73 mm 52-71 Amplitude Rapid) [facility] IeyicqeSZJIQRIYSF9689-98-08 08:33:0013.5[facility] HermannHEMATOLOGY 2020-04-10 08:33:000.8[facility] RgiqakkYEZTMHGJXX6969-45-20 08:33:00Not Detected (04/10/20 2:33 AM)[facility] HermannCHEM GUWJO7393-59-76 13:46:000.89[facility] HermannCHEM ELCRG6699-34-16 13:46:0078[facility] QbukssaPWLBGNWAYPKQF6049-20-17 13:46:00<1[facility] ZvlaevcQYRUGIEYNE9925-92-95 12:31:00Not Detected (04/06/20 6:31 AM)[facility] HermannCHEM IHAIH6966-47-80 05:49:39621Hugdmcaw HermannCHEM ZVTAR4655-96-45 05:49:0015[facility] HermannCHEM GKRXW9500-69-36 05:49:000.92 [facility] HermannCHEM GZMVM6298-42-21 05:49:65228Sgnhbtye HermannCHEM PANEL 2019-12-08 05:49:003.4[facility] HermannCHEM MEMXZ6807-52-03 05:49:10902Avciifqj HermannCHEM ZTHKW4193-33-10 05:49:0028[facility] HermannCHEM XVKIP5595-99-99 05:49:009.2[facility] HermannCHEM TJKVE2973-98-27 05:49:009.4[facility] HermannCHEM QAYCR1153-20-96 05:49:0075[facility] MlnocnhXHVKZHBNQT5141-39-14 05:49:0079.4 [facility] KmcdpglCGNYWTNPLJ2766-69-13 05:49:0016.0[facility] HermannHEMATOLOGY 2019-12-08 05:49:004.3[facility] FejvhsfQLZZJVNTAH2587-64-69 05:49:000.3[facility] MhaacdoFKCSUIATMO9612-93-47 05:49:007.4[facility] PyekjqoNCORNOVIGD5736-06-30 05:49:001.5[facility] HoprqcqOXKYEFXURQ0083-48-47 05:49:000.4[facility] VORTJGZDDJ3336-37-44 05:49:009.3[facility] QfrqgklYNPNJBGPAC9213-59-30 05:49:00 4.33[facility] YolytvvETIOUPJAGY4264-18-13 05:49:0012.6[facility] HermannHEMATOLOGY 2019-12-08 05:49:0037.3[facility] HvnzojuNCRGWBEKCP3158-93-30 05:49:0086.2[facility] YsebtgbOVBEPJNUUJ2260-57-99 05:49:00 Test Item Value Reference Range Interpretation Comments MCH (test code = MCH) 29.2 pg 27.0-31.0 [facility] JwwoaabYQCCDJTZXK3406-72-07 05:49:0033.8[facility] HermannHEMATOLOGY 2019-12-08 05:49:0013.8[facility] NqpdvnqVRODDJIHRE8435-25-09 05:49:30087Cglrodeg ZqxfcmhBDUXUAIEZM8819-27-83 05:49:008.0[facility] HermannURINE ATTE1904-91-83 00:14:00Negative (12/07/19 7:14 PM)[facility]UR[facility] AND TKJGF2855-56-28 14:26:43Yellow *NA*(12/06/19 9:26 AM)[facility]annUR[facility] AND PRUVC5893-17-42 14:26:43Slight *ABN*(12/06/19 9:26 AM)[facility]annUR[facility] AND TOGBW1566-57-45 14:26:43 Test Item Value Reference Range Interpretation Comments UA Spec Grav (test code = UA Spec 1.009 1 Grav) [facility] AND AESGW9837-68-22 14:26:43 Test Item Value Reference Range Interpretation Comments UA pH (test code = UA pH) 7.0 1 5.0-8.0 [facility] AND MWUAR7710-24-54 14:26:43Negative *NA*(12/06/19 9:26 AM) [facility] AND UJTIZ6570-09-24 14:26:43Small *ABN*(12/06/19 9:26 AM) [facility] AND PSMUX4577-30-34 14:26:43<1.0[facility]annUR[facility] AND XGWYO1042-42-49 14:26:43Negative (12/06/19 9:26 AM)[facility]UR[facility] AND NTHUN7339-52-91 14:26:43Large *ABN*(12/06/19 9:26 AM)[facility]UR[facility] AND ANWGW1304-77-61 14:26:431[facility] GJCEM0422-70-87 14:26:431 [facility] JlwpakqEYOXJSIAZC7818-73-72 09:39:00Not Detected (12/06/19 4:39 AM) [facility] ZAAWN3524-87-02 07:59:75425Bcdkmfia HermannCHEM PANEL 2019-12-06 07:59:007[facility] QHOXA3511-93-92 07:59:000.92[facility] WSAQF7299-81-87 07:59:31261Dlbyupbi HermannCHEM RJDBA2201-63-69 07:59:004.7[facility]annCHE[facility] PHGHJ5679-96-79 07:59:85318Iywehglb HermannCHEM LRDFH5368-33-99 07:59:0022[facility]annCHE[facility] CFUOL0475-09-20 07:59:009.4 [facility] HERJU1880-14-27 07:59:0013.7[facility]annCHEM PANEL 2019-12-06 07:59:0075[facility]annCHE[facility] UXHZT5143-32-30 07:59:001.1[facility] TmkxvhkUKSVBEVYTH6731-56-08 07:59:004.5[facility] CselokmZCNXTSLGUS9093-65-98 07:59:004.87[facility] BarbzxpBGLRGWMLBD7352-67-21 07:59:0014.4[facility] Matty QSAKOQXYDS1051-29-28 07:59:0042.4[facility] HyernuvVLGXNOYMAN7987-04-68 07:59:00 87.0[facility] ZqnxaouKTSVDZXQWY7157-95-11 07:59:00 Test Item Value Reference Range Interpretation Comments MCH (test code = MCH) 29.5 pg 27.0-31.0 [facility] OgctdozUPPIAXVVEV7417-27-33 07:59:0033.9[facility]annHEMATOLOGY 2019-12-06 07:59:0013.9[facility] AgpqyllYVUPYDNAIW3154-93-55 07:59:78610Kxxgvxkj CvysngxNSHOBIHZJV5675-07-02 07:59:007.3[facility] YuxwmfbSXCBMZCYUT1381-98-23 07:59:00 Test Item Value Reference Range Interpretation Comments PT (test code = PT) 12.1 s 12.0-14.7 [facility] LaescrmKGNLEOEURV9070-84-32 07:59:00 Test Item Value Reference Range Interpretation Comments INR (test code = INR) 0.90 1 0.85-1.17 [facility]CF[facility]WDCA1706[facility]40-[facility] 07:59:00 Test Item Value Reference Range Interpretation Comments PTT (test code = PTT) 26.2 s 22.9-35.8 [facility] CenterLsgashyAGWFBSRRCO2434-32-13 07:59:00 Test Item Value Reference Range Interpretation Comments ACT (TEG) Rapid (test code = ACT (TEG) 97 s 86-118 Rapid) [facility] CenterBanlwvjXEBUJHAGDG1215-12-89 07:59:00 Test Item Value Reference Range Interpretation Comments Split Point Rapid (test code = Split 0.4 min Point Rapid) [facility] CenterWdzjrbpRRUNFGIOPX5510-87-48 07:59:00 Test Item Value Reference Range Interpretation Comments R-time Rapid (test code = R-time 0.5 min 0.4-0.7 Rapid) [facility] CenterStttgajIUNKNRILTM6417-33-23 07:59:00 Test Item Value Reference Range Interpretation Comments K-time Rapid (test code = K-time 3.0 min 0.6-2.3 Rapid) [facility] CenterKrnoftwEQWOXYFEFT4173-32-51 07:59:00 Test Item Value Reference Range Interpretation Comments Angle Rapid (test code = Angle 71 degrees 64-80 Rapid) [facility] CenterPxwlahwDWCXXKHIQO0274-78-63 07:59:00 Test Item Value Reference Range Interpretation Comments Max Amplitude Rapid (test code = Max 49 mm 52-71 Amplitude Rapid) [facility] CenterGzbgeyfZMGGFOZNDL6917-96-64 07:59:004.8[facility]annHEMATOLOGY 2019-12-06 07:59:000.0[facility] SjociwdNTUCVPICEF2737-85-02 07:59:00Normal (12/06/19 2:59 AM)[facility] MbhjrdsYNENIVBCXO7568-62-26 07:59:00Normal (12/06/19 2:59 AM)[facility] OldrkznFPUHEBAMQV3491-61-07 07:59:0075.9[facility]annHEMATOLOGY 2019-12-06 07:59:0021.3[facility] LzfqngrXOMVLXNAKS3656-22-58 07:59:002.3[facility] MtqgrlpURRSRRQIZD5946-68-60 07:59:000.1[facility] FpjhrzlDFVFJLKHLW4586-22-43 07:59:000.4[facility] UetaantXAYHOIXSQW1056-95-32 07:59:003.4[facility] HJJOOCCSUR8678-35-84 07:59:001.0[facility] CorlufsRVZWUQDAIE7021-21-98 07:59:000.1 [facility] KJERIBW3407-48-98 07:58:00Negative (12/06/19 2:58 AM) [facility]] ROHWUK5394-99-08 12:34:00 Test Item Value Reference Range Interpretation Comments SODIUM (test code = 138 mmol/L 135-146 N SPECIMEN RECEIVED DATE SODIUM) AND TIME: [facility]] T4, [id number] 12:34:00 Test Item Value Reference Range Interpretation Comments T4, FREE (test 1.2 ng/dl 0.8-1.8 N SPECIMEN RECE IVED DATE AND code = T4, FREE) TIME: [facility]] VITAMIN D, 25-HYDROXY, LC/MS/[id number] 12:34:00 Test Item Value Reference Range Interpretation [...] D, (D2,D3), LC/MS/MS is recommended: order code 04695 (pat ients >2yrs). For mor e information on this test, go to:[email or web address] [email or web address](This link is being provided for informational/e ducational purposes only.) SPECIMEN RECEIVED DATE A ND TIME: [facility]] BASIC METABOLIC PANEL W/[id number] 16:42:00 Test Item Value Reference Range Interpretation Comments GLUCOSE; Normal 89 mg/dl 65-139 N Non-fasting (test code = reference inter clem 1547-9) UREA NITROGEN 10 mg/dl 7-25 N (BUN) (test code = UREA NITROGEN (BUN)) CREATININE (test 0.99 mg/dl 0.50-1.10 N code = CREATININE) eGFR NON- 69 {ML/MIN/1.7} > OR = 60 N DANISH (test code = eGFR NON-) eGFR 80 {ML/MIN/1.7} > OR = 60 N DANISH (test code = eGFR ) BUN/CREATININE NOT [...] SPECIMEN RECEIVED = CALCIUM) DATE AND TIME: [facility]] T4, TOTAL (THYROXINE)2018-06-08 16:42:00 Test Item Value Reference Range Interpretation Comments T4, TOTAL 6.0 {mcg/dl} 4.8-10.4 <1 month: Not (THYROXINE) (test Establishe d 1-23 code = T4, TOTAL months: 6.0 -13.2 mcg/dL (THYROXINE)) 2-12 years: 5.5-12.1 mcg/dL 13-2 0 years: 5.5-11.1 mcg/dL >20 years: 4.8- 10.4 mcg/dL Pregna ncy 1st Trimester: 6.4- 15.2 mcg/dL 2nd Tr imester: 7.4-15.2 mcg/dL 3rd Trimester: 7.7- 13.8 mcg/dL All Tr imesters Together: 7.0-14.7 mcg/dL Conversi on factor: 1 mcg/d L = 12.9 nmol/LSPECIMEN RECEIVED DATE AND TIME: [facility]] T4, [id number] 16:42:00 Test Item Value Reference Range Interpretation Comments T4, FREE (test 1.2 ng/dl 0.8-1.8 N SPECIMEN RECE IVED DATE AND code = T4, FREE) TIME: [facility]] TSH, 3RD [id number] 16:42:00 Test Item Value Reference Range Interpretation Comments TSH; Below Low 0.15 {MIU/L} Reference Ran ge Threshold (test > or = 20 code = 22497-0) Years 0.40- 4.[address] 0.26-2.66 Second trimeste r 0.55-2.73 Third trimester 0.43-2.91SPECIM EN RECEIVED DATE A ND TIME: 642 [facility]] VITAMIN D, 25-HYDROXY, LC/MS/[id number] 16:42:00 Test Item Value Reference Range Interpretation [...] D, (D2,D3), LC/MS/MS is recommended: order code 15952 (pat ients >2yrs). For mor e information on this test, go to:[email or web address](This link is being provided for informational/e ducational purposes only.) SPECIMEN RECEIVED DATE A ND TIME: [facility] [id number] 21:46:0096[facility]M BRRRL2169-09-93 21:46:008.1[facility] NQHLS7400-49-37 21:46:0026 [facility] PVGOQ2937-73-77 21:46:000.77[facility]annCHE[facility] PANEL 2015-07-05 21:46:003[facility]CHE[facility] VKSYF8039-09-99 21:46:003.1[facility]ann[facility] ASHVY9752-16-56 21:46:45395Cwxlyhgy HermannCHEM WQAKG3255-90-60 21:46:52956Kqajdcqq [facility]annCHEM PJEWY8071-73-91 21:46:22102Hyvohacp HermannCHEM QUPJD8237-51-13 21:46:0012.1[facility] NcghxndTBNAVMJSTA1867-41-92 21:46:00Normal (07/05/15 3:46 PM)[facility] JsvqpvsBPYRDUGOER1095-24-24 21:46:00 Test Item Value Reference Range Interpretation Comments Tot Cell Ct (test code = Tot Cell Ct) 100 1 [facility] VulrzsdNFYEHCCSKC3246-38-25 21:46:000.0[facility]annHEMATOLOGY 2015-07-05 21:46:00Normal (07/05/15 3:46 PM)[facility] DyutvihUILLIQNYXC3085-73-96 21:46:0040.0[facility] VtageqyFHIZFXERRF1515-53-11 21:46:004.0[facility] BZNSTTCYWP8578-74-99 21:46:003.5[facility] VejfvjoOESUIQKLHY5294-26-82 21:46:002.5 [facility] FvmtiznWMWHGWZXFA7513-84-46 21:46:000.2[facility]annHEMATOLOGY 2015-07-05 21:46:0056.0[facility] YbckzgfFWBFILXDHV6449-34-71 21:46:000.0[facility] PnbbatqYHRDVPNOGA8634-23-77 21:46:0015.8[facility] AarrrvzGMGBSZMZFH0365-21-60 21:46:006.9[facility] DbnzxpwTBGZMMKGYC0595-18-41 21:46:62823Dvivfzap Matty LFMSHXYFRX9135-12-94 21:46:0083.1[facility] JmmiqnkNOLEACFPAJ3767-45-97 21:46:00 3.91[facility] RwnrmqgOFALKCBULM7513-94-77 21:46:006.2[facility]annHEMATOLOGY 2015-07-05 21:46:0032.5[facility] YskbstrJAECWMXQUD6802-59-23 21:46:0010.8[facility] FzdrirpTFAQGXUMLB1217-86-23 21:46:0033.2[facility] YfyktyqEVPEDFLWHK3159-31-31 21:46:00 Test Item Value Reference Range Interpretation Comments MCH (test code = MCH) 27.6 pg 27.0-31.0 [facility] CFPRR4190-76-60 21:19:00Negative (07/05/15 3:19 PM) [facility] NRBPP2433-76-85 21:19:00Negative (07/05/15 3:19 PM) [facility] LLNRP9923-19-15 21:19:000.2[facility] XYNYO8053-69-64 21:19:00Negative (07/05/15 3:19 PM)[facility] STOOL 2015-07-05 21:19:00Negative *NA*(07/05/15 3:19 PM)[facility] ST[facility]OL 2015-07-05 21:19:00 Test Item Value Reference Range Interpretation Comments UA pH (test code = UA pH) 7.0 1 5.0-8.0 [facility] OPBZM1094-30-89 21:19:00 Test Item Value Reference Range Interpretation Comments UA Spec Grav (test code = UA Spec 1.015 1 Grav) [facility] GFWIC8792-39-79 21:19:00Clear (07/05/15 3:19 PM)[facility] FCSHO0432-86-58 21:19:00Yellow *NA*(07/05/15 3:19 PM)[facility] YNMLB8986-53-14 21:19:00None Seen (07/05/15 3:19 PM)[facility]annCHE[facility] TUCOV6977-51-73 18:52:0093[facility]annCHEM AYEUE0432-75-93 18:52:003.3[facility]annCHE[facility] NMJQL2556-43-40 18:52:55962Idamyvtf HermannCHEM TVSPG9670-31-63 18:52:000.80[facility]CHE[facility] TVFEX7916-39-19 18:52:008.6 [facility] OVHNW6712-74-11 18:52:0027[facility]annCHE[facility] PANEL 2015-05-27 18:52:0013.3[facility]annCHEM ARIUZ8356-43-07 18:52:55700Vzhsbgjc HermannCHEM CTTWY2095-09-54 18:52:0093[facility]annCHE[facility] IZXME3863-98-03 18:52:0014[facility]annCHE[facility] MQBJD3915-37-39 18:52:000.3[facility]annCHE[facility] GJHEV8560-98-97 18:52:003.3[facility]CHE[facility] XNRPW2750-50-93 18:52:000.1 [facility]CHE[facility] XUUDY0543-34-37 18:52:15353Oqdmnzwx HermannCHEM PANEL 2015-05-27 18:52:0031[facility]annCHE[facility] KHBTQ1973 18:52:003.4[facility]annCHE[facility] RVXCR0921-56-49 18:52:95799Wcpavmfn [facility]annCHE[facility] UJMBF7123-23-76 18:52:000.2[facility]annCHE[facility] TWOLX3962-52-41 18:52:001.0[facility]annCHE[facility] GQLHC2182-36-51 18:52:006.7[facility]annCHE[facility] YZZZD7129-33-38 12:20:000.9 [facility]CHE[facility] IFOBE9558-29-08 12:20:003.8[facility]annCHEM PANEL 2015-05-25 12:20:0011.1[facility]annCHE[facility] MXWNS1645-22-61 12:20:0023[facility]annCHE[facility] GKFWC7989-09-18 12:20:57490Ghtqntie HermannCHEM QUFIM6112-25-92 12:20:81370Ngstolhe HermannCHEM LGEAF7361-22-52 12:20:000.71[facility]annCHEM PAIFE5935-88-60 12:20:004.1[facility]annCHE[facility] KBBQJ1970-31-32 12:20:0024 [facility]CHE[facility] AWVBQ4032-71-88 12:20:10603Lfyazzwn HermannCHEM PANEL 2015-05-25 12:20:003.3[facility]annCHEM OMVXY5820-62-21 12:20:37802Wsazzfhu HermannCHEM HTMJV6180-08-19 12:20:0050[facility]annCHE[facility] ABCZP7562-64-25 12:20:008.2[facility]annCHE[facility] HSAQJ9798-13-24 12:20:007.1[facility]annCHE[facility] YGYTP8972-86-57 12:20:000.4[facility]annCHEM PFZGY6451-81-82 12:20:71853 [facility]annCHE[facility] IDOBS0105-90-11 12:20:97277Uuircenx HermannCHEM PANEL 2015-05-25 12:20:0016[facility] FpqzborVHMCKMYLLB4569-82-53 12:20:0014.9[facility] NndpvzcMXUAVSRRMC7677-44-86 12:20:003.4[facility] YnpwxtzFEVBITVQRI6483-16-49 12:20:000.1[facility] SnigjlbUHSTWVFGBH3955-12-81 12:20:000.2[facility] ZVBRGZRCSH2436-33-84 12:20:001.3[facility] YzkmvxmJECHRRESRO7526-11-95 12:20:000.3 [facility] MzhdvanOSHUDFWXND9065-53-13 12:20:006.9[facility]annHEMATOLOGY 2015-05-25 12:20:0081.4[facility] HzfakwyXTYMTNQTVL0668-34-99 12:20:004.66[facility] XuoevnaDWRKAYJXLI7634-72-15 12:20:0039.4[facility] LcrpsoiUYGBRBRCGZ9544-22-38 12:20:0013.1[facility] OpxczdaKAHNOFBBPX9816-38-41 12:20:008.5[facility] GRLTGLFNCT6652-54-47 12:20:0033.2[facility] OknoutiZNQMNNWZXD6627-58-89 12:20:00 Test Item Value Reference Range Interpretation Comments MCH (test code = MCH) 28.1 pg 27.0-31.0 [facility] QtdlnltIWOPTUNWBG0572-19-02 12:20:0084.5[facility]annHEMATOLOGY 2015-05-25 12:20:007.8[facility] KgrvgwfOZZKMPCYAL3750-50-23 12:20:39659Eokhoelt FfqhvlaQPRYDKSQXV6927-65-86 12:20:0015.9[facility] HermannCHEM UKOYC5018-97-48 06:01:31012Vojzsutk HermannCHEM TEDBP4504-01-19 06:01:001.0[facility]annCHEM IWXZT1163-28-60 06:01:0096[facility]annCHE[facility] UXTFE0916-26-60 06:01:009.1 [facility]CHE[facility] PQJRK3021-24-05 06:01:35569Tsdpusjf HermannCHEM PANEL 2015-05-24 06:01:000.6[facility]annCHE[facility] YSSDU7943-25-36 06:01:0083[facility]annCHEM TCLRA2965-40-92 06:01:007.4[facility]annCHEM OBNIP5294-34-45 06:01:0025[facility]annCHEM OHWUB8877-33-09 06:01:003.7[facility]annCHEM VPEDD3332-22-43 06:01:0015.6[facility]annCHEM IEXZG8215-42-64 06:01:003.7 [facility]CHE[facility] JJDGG6285-28-95 06:01:000.87[facility]annCHEM PANEL 2015-05-24 06:01:0022[facility]annCHEM CPYLG5800-51-49 06:01:92434Iujtjllh HermannCHEM RYGXC7284-30-25 06:01:003.6[facility]annCHEM TMBQV3181-37-21 06:01:52143Yztaxgnt HermannCHEM QINAG6071-73-98 06:01:0022[facility]annCHEM PUHVK5837-32-91 06:01:02775Ykantlcx DbqwpvkTYIDLZIQWJ8110-90-40 06:01:000.1 [facility] JgtlbsqNYQLTUNJJG5020-27-12 06:01:0081.5[facility]annHEMATOLOGY 2015-05-24 06:01:000.7[facility] UnqexspGZZRAFBIIF7833-86-33 06:01:0011.3[facility] CgonnseCLFSHHQUFR4799-45-32 06:01:000.5[facility] ThokwelMGQYWFZACV5377-11-57 06:01:001.7[facility] LjqcovpCDQQMZKFCU4496-63-24 06:01:0012.4[facility] FJAODIUUIE2825-61-82 06:01:000.4[facility] PxeqlwfJPKSGEVMRA1173-31-50 06:01:005.2 [facility] FmuzxcpAKNCNQWGTZ3186-28-37 06:01:008.1[facility]annHEMATOLOGY 2015-05-24 06:01:0013.9[facility] GtsobvgSHPCYKDJDA6076-80-47 06:01:0015.6[facility] KrjhaihAOVRXBGAAO3356-17-59 06:01:59589Lmebbooe HufunvyCJGORCJDQY0373-68-20 06:01:005.06[facility] JzgxxzrLUSFUACAZO5962-54-44 06:01:0032.2[facility] XBUNHLJBFT8940-99-95 06:01:00 Test Item Value Reference Range Interpretation Comments MCH (test code = MCH) 26.5 pg 27.0-31.0 [facility] RfqxtjnOSHUUXHUBA7964-49-74 06:01:0041.6[facility]annHEMATOLOGY 2015-05-24 06:01:0082.1[facility] IddpkbeUKSMISYTTO6466-73-98 06:01:0013.4[facility] PgeqwbmLWSUPTQHBT4692-79-66 21:17:0015.5[facility] MkxwxoiKMKJVRDUPW4384-52-29 21:17:0033.2[facility] MhjranxQUFCHYIKVW5447-93-69 21:17:007.7[facility] NQFGUTFUEH7370-05-31 21:17:47274Ofeamthk OuyjcyjOTPIYTZCQL9720-87-34 21:17:00 11.3[facility] OtcmdwmDHTNRGMYRB9321-07-39 21:17:0082.5[facility]annHEMATOLOGY 2015-05-23 21:17:00 Test Item Value Reference Range Interpretation Comments MCH (test code = MCH) 27.4 pg 27.0-31.0 [facility] DglyuozBBETXVERGQ9603-65-99 21:17:005.00[facility]annHEMATOLOGY 2015-05-23 21:17:0041.3[facility] SnstddbCLNKFPDXOP2007-70-25 21:17:0013.7[facility] UazevadHVCBEPBLOZ0822-06-78 21:17:007.8[facility] CxeoyzkBDXTNMLERS4167-22-60 21:17:002.5[facility] KtjianzJAEETGEWVN2368-88-64 21:17:0067.0[facility] CBZEEMYFIU0338-14-32 21:17:000.6[facility] CuugxpzWMRVUNYLOZ0017-02-81 21:17:005.0 [facility] EcrbuksHPHXTNOAJI0502-46-53 21:17:003.0[facility]annHEMATOLOGY 2015-05-23 21:17:001.0[facility] JojlsmbSJSELLBDAF0796-36-31 21:17:00Normal (05/23/15 3:17 PM)[facility] KvwsdsiXWAVFCVENB7103-38-29 21:17:00Normal (05/23/15 3:17 PM)[facility] VgppxpyITZESTJTKY8069-16-20 21:17:000.0[facility] STINURXOOZ6841-93-41 21:17:002.0[facility] TeewkguDKYSOFWAMJ2112-03-25 21:17:00 22.0[facility] XkgeiklMNMGZZVLBD2438-39-30 21:17:00 Test Item Value Reference Range Interpretation Comments Tot Cell Ct (test code = Tot Cell Ct) 100 1 [facility]annCHE[facility] SDXHR7411-46-74 15:16:0033[facility]annHEMATOLOGY 2015-05-21 10:35:000.5[facility] SixtksjQFWKVFYMRX0450-84-38 10:35:000.1[facility] MpruunoIATICYQJFB4733-98-33 10:35:000.3[facility]annCHEM VWUXP1776-79-46 10:27:002.4[facility]annCHEM DCVZR9295-77-75 10:27:001.7[facility] MMCOXFGCVE2912-15-51 10:27:00Normal (05/15/15 4:27 AM)[facility]annHEMATOLOGY 2015-05-15 10:27:00Normal (05/15/15 4:27 AM)[facility] VtamotzGNPBVEDKHD2690-11-85 10:27:001.24[facility] SaptnbnFVRWVCNUSZ9245-48-04 10:27:00 Test Item Value Reference Range Interpretation Comments PT (test code = PT) 15.9 s 12.0-14.7 [facility]annCHE[facility] SEJOO7151-61-26 09:51:002.2[facility]annCHEM PANEL 2015-05-14 09:51:002.1[facility] OnjskwyIVMQNHQBGOWDH9521-52-39 12:58:00<0.03 [facility]annCHE[facility] AZQOE8225-28-64 09:21:002.2[facility]annCHEM PANEL 2015-05-13 09:21:003.2[facility] KaulyzoSQLLRKVFGN6494-74-31 09:21:00 Test Item Value Reference Range Interpretation Comments PT (test code = PT) 17.0 s 12.0-14.7 [facility] YzxhsalHOHXKGLUFS5982-39-89 09:21:00 Test Item Value Reference Range Interpretation Comments PTT (test code = PTT) 53.3 s 22.9-35.8 [facility] AvchzyaAFABPZGYKN0547-70-44 09:21:001.35[facility]annHEMATOLOGY 2015-05-13 09:21:001+ (05/13/15 3:21 AM)[facility] TsazmwyRRTTCTZWKX3339-01-09 09:21:001+ *ABN*(05/13/15 3:21 AM)[facility] LbyqgcuGORGNNXMNX7244-80-27 10:03:00 0.1[facility]annDRUG KOLZCJ0670-87-75 00:25:00Negative *NA*(05/11/15 6:25 PM) [facility] ZAMTMZ7278-54-86 00:25:00Negative *NA*(05/11/15 6:25 PM) [facility] SSRANF8353-99-70 00:25:00Negative *NA*(05/11/15 6:25 PM) [facility] YFDAQE3508-14-21 00:25:00Negative *NA*(05/11/15 6:25 PM) [facility] FVVNLD8491-01-51 00:25:00See Note (05/11/15 6:25 PM)[facility] IXMPCI8920-03-19 00:25:00Positive *ABN*(05/11/15 6:25 PM)[facility] HKIVTI5857-97-39 00:25:00Negative *NA*(05/11/15 6:25 PM)[facility] FHGRGH7286-72-86 00:25:00Negative *NA*(05/11/15 6:25 PM)[facility] TFVPK6008-96-53 00:25:00<1[facility] STOOL 2015-05-12 00:25:001[facility] YGDIN1862-56-54 00:25:00Negative (05/11/15 6:25 PM)[facility] EJPGM2168-07-50 00:25:006.0[facility] JAWEH2577-65-41 00:25:001.019[facility] STOOL 2015-05-12 00:25:00Negative (05/11/15 6:25 PM)[facility] STOOL 2015-05-12 00:25:00Negative (05/11/15 6:25 PM)[facility] STOOL 2015-05-12 00:25:002.0[facility] FIJST0686-53-90 00:25:00Negative *NA*(05/11/15 6:25 PM)[facility] IXSYE8005-62-50 00:25:00Clear (05/11/15 6:25 PM)[facility] DQGSS1384-66-00 00:25:00Yellow *NA*(05/11/15 6:25 PM)[facility] VQRF4354-81-87 00:25:00Negative (05/11/15 6:25 PM)[facility] EggrcyjGITANIRVHILEY5674-83-58 00:14:000.07[facility] HermannPARATHYROID IOKXRNI2781-92-41 00:14:001.08[facility] HermannPARATHYROID AITFZEH5839-44-75 00:14:001.11[facility] YltsafrUTPHPUODDK8181-19-49 00:14:0041 [facility] ExkvpjmYNDQZWVQCF6766-07-16 09:17:000.1[facility]annHEMATOLOGY 2015-05-11 09:17:000.2[facility] ZxqquhkBOGPWDADVX5805-13-72 14:37:0038.4[facility] LforzcfOPGMMILJJE9349-65-50 13:52:000.2[facility]annCHEM NUIGH1689-60-22 02:28:000.9[facility] HermannPARATHYROID ZSZGCTZ9543-11-02 02:28:001.01[facility] HermannPARATHYROID YNPOGQW2705-26-64 02:28:000.98[facility] HermannTOXICOLOGY 2015-05-10 02:28:0034.2[facility] MvbnqocVRYZGNXCLE3807-41-71 02:28:0012[facility]
== END 2020-06-13 02:32 | disposition home or self-care (01) ==
LOC: ER 23:38
DX: H43.11 Vitreous hemorrhage, right eye (principal); D49.6 Neoplasm of unspecified behavior of brain; H54.8 Legal blindness, as defined in USA; H91.90 Unspecified hearing loss, unspecified ear; E03.9 Hypothyroidism, unspecified
CPT/HCPCS: 70450; 99284